=== PATIENT | male | born 1970 | race Caucasian/White ===

== ENCOUNTER 2016-08-18 18:07 | Emergency (ER) | payer MEDICARE, OTHER, MEDICAID ==
[~2016-08-18 18:07] MED LIST: /ATOR40TA; /ATOR40TA OR; /AUGM875TA; /FAMO2TA PO; /INSUREG SC; /LOR25TA PO; /METO25TAB PO; /QUET10TA OR; ABIL10TA OR; ABIL1TAB5 PO; ABIL5TAB OR; ACET500C; ACET65TA; ACET65TA OR; AMLO5TAB OR; ASPI325T; ASPI325T OR; ASPI325T PO; ASPI81CH3 PO; ATARAX OR; ATEN25TA; ATEN25TA OR; ATIV0.5T OR; ATIV1TAB2 OR; ATOR1TAB21 PO; ATOR40TA PO; AUGM875T27 PO; BACT800T5 PO; BENA20TA2 OR; BUPROPION HCL PO; CELE20TA; CELE40TA OR; CIPR25SS OR; CITA20TA2 PO; CITA20TA4 PO; DEPA500T; DEPA500T2 OR; DEPAKOTE ER PO; DEPAKOTE PO; DIOV160T5; DIOV160T5 OR; DIOV320T; DRIS50002 PO; EFFE75CA75 OR; EFFE75CA75 PO; FLON0.05; GLUCAGEN SC; GLUCOSE OR; HIBI4LIQ TOP; HUMA50IN SQ; HUMULIN N SC; HYDR50TA8 OR; INSUH10VL SC; INSULANT; INSULANT SC; INSULIN LANTUS SC; KEFL500C7 PO; LAMI25TA OR; LAMO25TA2 PO; LANTINJ4 SC; LANTUS; LANTUS SC; LANTUS U SC; LEVA750T PO; LIPITOR PO; LOSA25TA8 PO; LOTREL PO; LUNE3TAB48 PO; MICR10CA PO; MILKSUS OR; MUPI2OI EXT; NIACIN OR; NIACPOW39 PO; NIAS10003; NIAS500T2 OR; NOVOINJ3; NOVOINJ3 SC; NOVOLOG SC; NOVOLOG100 MG/ML; NOVOLOG100 MG/ML SC; PANT40TA2 PO; PERC7.5T12 PO; PERCOCET PO; PSEU60TA2 OR; QUET1TAB8 PO; SERO400T OR; SEROQUEL PO; TRAZ100T OR; TRAZ150T OR; TYLE325T5 PO; VITA100072 PO; VITA30004 PO; VITA500047 PO; VITMTA PO; WELL75TA; ZYVO100T PO; [UNRECOGNIZED DRUG - OTHER]; celexa OR; depakote OR
[2016-08-18 19:04] LABS: MEAN CORPUSCULAR HEMOGLOBIN 30.7 pg (27.0-33.0); MEAN CORPUSCULAR HGB CONC 34.3 g/dl (32.0-36.5); MEAN CORPUSCULAR VOLUME 89.6 fl (80.0-96.0); RED CELL DISTRIBUTION WIDTH 13.6 % (11.5-14.5); WHITE BLOOD COUNT 5.6 K/mm3 (4.0-10.0)
[2016-08-18 19:18] LABS: ALBUMIN 3.8 GM/DL (3.2-5.2); ALBUMIN/GLOBULIN RATIO 1.09 (1.00-1.93); ALKALINE PHOSPHATASE 121 U/L (45-117); ALT/SGPT 43 U/L (12-78); ANION GAP 14 MEQ/L (8-16); AST/SGOT 24 U/L (15-37); BILIRUBIN,DIRECT 0.1 MG/DL (0.0-0.2); BILIRUBIN,TOTAL 0.4 MG/DL (0.2-1.0); BLOOD UREA NITROGEN 21 MG/DL (7-18); CALCIUM LEVEL 8.7 MG/DL (8.5-10.1); CARBON DIOXIDE LEVEL 23 MEQ/L (21-32); CHLORIDE LEVEL 101 MEQ/L (98-107); CREATININE FOR GFR 0.84 MG/DL (0.70-1.30); GLOMERULAR FILTRATION RATE > 60.0 (>60); GLUCOSE, FASTING 231 MG/DL (70-105); POTASSIUM SERUM 3.9 MEQ/L (3.5-5.1); SODIUM LEVEL 138 MEQ/L (136-145); TOTAL PROTEIN 7.3 GM/DL (6.4-8.2)
--- NOTE | 2016-08-19 00:09 | EDDOCDS ---
Nurse's Notes [facility] Name: Del Rust Age: 45 yrs Sex: Male : 1970 Arrival Date: 08/18/2016 Time: 18:07 Bed 9 Private MD: Dio Allen Diagnosis: Acute bronchitis;Major depressive disorder, recurrent, mild Presentation: 08/18 18:13 Presenting complaint: Patient states: finished azithromycin yesterday with no relief in jjr symptoms, increased depression over past couple weeks. Mental Health Triage Level: Level 1- Pt displays no suicidal or homicidal ideations and does not appear to be a danger to self or others. Adult Sepsis Screening: The patient does not have new or worsening altered mentation. Patient's respiratory rate is less than 22. Systolic blood pressure is greater than 100. Patient has a qSOFA score of 0- Negative Sepsis Screen. Suicide/Homicide risk assessment- The patient reports that he/she has not been admitted to an inpatient mental health facility in the last 30 days. The patient reports that he/she does not have a recent or current history of substance abuse. The patient reports that he/she has experienced a significant life altering event in the last 30 days. Status: Patient is not a neuropsychology service director or dependent. Transition of care: patient was not received from another setting of care. 18:13 Acuity: EDWARD Level 3 jjr 18:13 Method Of Arrival: Walkin/Carried/Asstd jjr Triage Assessment: 18:15 General: Appears in no apparent distress, Behavior is appropriate for age. Pain: jjr Location: "whole body cramp" and QUIROZ. HIV screening NA for this visit Offered previously. Neurological: No deficits noted. Reports headache. Respiratory: Airway is patent Respiratory effort is even, unlabored, Respiratory pattern is regular. Historical: - Allergies: Benadryl (Upset stomach); Morphine (Upset stomach); - Home Meds: 1. citalopram 40 mg Oral tab 1 tab once daily 2. aripiprazole 10 mg Oral tab 1 tab once daily 3. Lamictal 25 mg Oral TChD 2 tabs daily 4. hydroxyzine HCl 50 mg Oral tab prn 5. Abilify 10 mg Oral tab 1 tab once daily 6. Lunesta 3 mg Oral tab 1 tab once daily 7. atorvastatin 40 mg oral tab 1 tab once daily 8. pantoprazole 40 mg oral TbEC 1 tab once daily 9. aspirin 325 mg Oral TbEC 1 tab once daily 10. Lantus 100 unit/mL Sub-Q crtg 46 unit daily 11. Novolog 100 unit/mL Sub-Q soln sliding scale after meals 12. losartan 25 mg oral tab 1 tab once daily - PMHx: Diabetes - IDDM: controlled; CVA; Myocardial infarction; Hypercholesterolemia; Hypertension; Anxiety; Depression; - PSHx: Gastric Bypass; Appendectomy; retina reattachment (bilaterally); Cataract Surgery- Right; Cataract Surgery- Left; toe amputation; - Social history: Smoking status: Patient uses tobacco products, current every day smoker. No barriers to communication noted, The patient speaks fluent Kiswahili. - Family history: Not pertinent. - : The pt / caregiver states he / she is not on anticoagulants. Home medication list is obtained from the patient. - Exposure Risk Screening:: None identified. Screenin:23 Screening information is obtained from the patient. Fall risk: No risks identified. bcj Assistance ADL's: requires no assistance with activities of daily living. Abuse/DV Screen: The patient / caregiver reports he/she is: not in a situation that causes fear, pain or injury. Nutritional screening: No deficits noted. Advance Directives: Currently, there is no health care proxy. home support is adequate. Assessment: 18:23 General: Appears in no apparent distress, comfortable, Behavior is cooperative. Pain: bcj Denies pain. Derm: Skin is intact, Skin is dry, Skin is pink. 19:40 General: Appears in no apparent distress, comfortable, Behavior is appropriate for age, js15 cooperative. Pain: Denies pain. Neurological: Level of Consciousness is awake, alert, obeys commands, Oriented to person, place, time. Respiratory: Airway is patent Respiratory effort is even, unlabored, Respiratory pattern is regular, symmetrical. Derm: Skin is pink, warm & dry. 20:40 Reassessment: Patient appears in no apparent distress at this time. Pt resting on js15 stretcher, respirations even and unlabored; skin pink, warm, dry. 21:45 Reassessment: Patient appears in no apparent distress at this time. Pt complains of js15 muscle cramps in legs, provider notified and orders given; respirations even and unlabored; skin pink, warm, dry. 23:00 General: Appears in no apparent distress, to be sleeping. Cardiovascular: Rhythm is js15 sinus rhythm. Respiratory: Airway is patent Respiratory effort is even, unlabored, Respiratory pattern is regular, symmetrical. Derm: Skin is pink, warm & dry. 08/19 00:03 Reassessment: Patient appears in no apparent distress at this time. Patient denies pain js15 at this time. Patient states feeling better. Patient states symptoms have improved. Pt resting on stretcher, respirations even and unlabored; skin pink, warm, dry. Social Work Consult: 08/18 19:57 Social Work Note: PSA spoke with pt and his sister at bedside. Pt reports not feeling cs well past 3-4 days, not eating or sleeping. Sister reports he has no one to speak with when he is getting depressed. Pt states he sees Dr. Hoang for the past 2 years and likes her as a doctor. Pt reports he is looking at seeing his sister's counselor, sister states her counselor said it was ok. Pt was very upbeat about talking denies any suicide thoughts or wanting to kill anyone at this time. PSA offered [facility] [employer] systems test engineer and pamphlet to the pt, he and his sister seemed very interested and may call at a later time for a referral to the free care attendantstrategic partnership manager. DC plan is for the pt to go [facility] [place] once the MD finds out what is making him feel sick. No safety concerns noted at this time, sister and pt very thankful with referral options and option of a care attendant. Support extended. Psych: 18:45 Mental Health Triage Level: Level 1- Pt displays no suicidal or homicidal ideations and bcj does not appear to be a danger to self or others. 18:45 Subjective: The patients chief complaint is not sleeping or eating well. 18:45 Objective: Patient is cooperative, Speech is normal. Affect is appropriate. 18:45 Substance abuse: Pt denies Vital Signs: 18:09 BP 162 / 94; Pulse 140; Resp 20; Temp 100.1(O); Pulse Ox 98% on R/A; Weight 80.74 kg elp (R); Height 5 ft. 10 in. (177.80 cm) (R); 18:35 BP 145 / 96; Pulse 133; pjf 20:15 BP 118 / 79 (auto/); js15 20:16 Pulse 106 MON; Pulse Ox 95% ; js15 20:30 BP 119 / 81 (auto/); js15 20:30 Pulse 106 MON; Pulse Ox 95% ; js15 20:45 BP 114 / 71 (auto/); js15 20:45 Pulse 102 MON; Pulse Ox 95% ; js15 21:00 BP 119 / 79 (auto/); js15 21:00 Pulse 94 MON; Pulse Ox 95% ; js15 21:15 BP 120 / 79 (auto/); js15 21:15 Pulse 98 MON; Pulse Ox 95% ; js15 21:30 BP 121 / 65 (auto/); js15 21:30 Pulse 98 MON; Pulse Ox 95% ; js15 21:45 BP 138 / 69 (auto/); js15 21:45 Pulse 98 MON; Pulse Ox 96% ; js15 21:59 Pulse 88 MON; Pulse Ox 96% ; js15 22:00 BP 129 / 68 (auto/); js15 22:15 BP 125 / 73 (auto/); js15 22:15 Pulse 82 MON; Pulse Ox 98% ; js15 22:29 Pulse 80 MON; Pulse Ox 97% ; js15 22:30 Temp 97.0(TE); js15 22:30 BP 121 / 72 (auto/); js15 22:44 Pulse 82 MON; Pulse Ox 96% ; js15 22:45 BP 115 / 69 (auto/); js15 22:59 Pulse 82 MON; Pulse Ox 98% ; js15 23:00 BP 117 / 68 (auto/); js15 23:15 BP 122 / 70 (auto/); js15 23:16 Pulse 84 MON; Pulse Ox 97% ; js15 23:30 BP 117 / 66 (auto/); js15 23:30 Pulse 78 MON; Pulse Ox 97% ; js15 23:44 Pulse 78 MON; Pulse Ox 97% ; js15 23:45 BP 117 / 66 (auto/); js15 23:50 BP 113 / 66 (auto/); js15 23:50 Pulse 76 MON; Resp 18; Temp 98.2(TE); Pulse Ox 97% on R/A; 18:09 Body Mass Index 25.54 (80.74 kg, 177.80 cm) elp Vitals: 18:09 Log In Time: August 18, 2016 at 18:07. RN notified that patient meets Red Flag elp criteria. ED Course: 18:08 Patient visited by Maria Esther Zuñiga PCA. elp 18:08 Dio Allen MD is Private Physician. elp 18:08 Patient moved to Waiting elp 18:[address] [facility] jjr 18:10 Patient visited by Maria Esther Zuñiga PCA. elp 18:15 Triage Initiated jjr 18:23 No apparent distress. Awaiting ED physician evaluation. bcj 18:23 The patient / caregiver is instructed regarding the plan of care and ED course. bcj Accompanied by Family Member, Patient has correct armband on for positive identification. Placed in gown. 18:24 Rowena Koch MD is Attending Physician. fg 18:25 Patient visited by Rowena Koch MD. fg 18:28 Patient visited by Jason Sotomayor RN. bcj 18:36 Door closed. Noise minimized. Visitors limited. Report received from rn - psych. [facility] level #1, no obs. req. \\T\\ this time. Psych Safety Check: Location: Psych Room. Visual Assessment: Cooperative. 18:44 -Influenza A&B Rapid Antigen - Nose Sent. bcj 18:44 Basic Metabolic Profile Sent. bcj 18:44 Complete Blood Count Sent. bcj 18:44 Ethyl Alcohol (ethanol) Sent. bcj 18:44 Liver Profile Sent. bcj 18:45 Labs drawn. (by ED staff). Sent per order to lab. Urine collected. Clean catch bcj specimen. Urine specimen sent to lab. 18:46 Patient visited by Jason Sotomayor RN. bcj 19:07 Senait Soler, ADRIANNA is Primary Nurse. tmm1 19:07 Patient moved to 9 tmm1 19:15 Attending Physician role handed off by Rowena Koch MD mm11 19:15 Claudio Olvera DO is Attending Physician. mm11 19:32 EKG done. (by ED staff). Reviewed by Claudio Olvera DO. kb5 19:33 Patient visited by Rafat Patel PCA. kb5 19:36 [id number] Payment Agreement was scanned into [employer] and attached to record. ks16 19:40 Patient name changed from Del\\S\\\\S\\Schoff\\S\\ to Del\\S\\ \\S\\Schoff. EDMS 20:06 PSA Outpatient Referrals was scanned into Se[employer] and attached to record. ml4 20:12 Patient visited by Claudio Olvera DO. mm11 20:29 Inserted saline lock: 18 gauge in right antecubital area The patient tolerated the js15 procedure well. 20:43 Primary Nurse role handed off by Senait Soler RN chiquita 21:12 Patient visited by Claudio Olvera DO. mm11 22:08 Patient visited by Isabel Arambula RN. js15 23:07 Patient visited by Claudio Olvera DO. mm11 23:15 Dio Allen MD is Referral Physician. mm11 23:15 Referral list, As provided by [facility] is Referral Physician. mm11 23:50 Discontinued IV lock intact, bleeding controlled, pressure dressing applied, No js15 redness/swelling at site. No procedures done that require assistance. Administered Medications: 20:29 Drug: NS 0.9% 1000 ml [sodium chloride 0.9 % intravenous solution] Route: IV; Rate: js15 bolus; Site: right antecubital; 22:27 Follow up: IV Status: Completed infusion; IV Intake: 1000ml js15 21:58 Drug: Diazepam 5 mg [diazepam 5 mg/mL injection syringe (1 mL)] Route: IVP; Site: right js15 antecubital; 23:26 Drug: Diazepam 5 mg [diazepam 5 mg/mL injection syringe (1 mL)] Route: IVP; Site: right kc3 antecubital; Intake: 22:27 IV: 1000.00ml; Total: 1000.00ml. js15 Order Results: Lab Order: Basic Metabolic Profile; SPEC'M 08/18/16 18:38 Test: GLUCOSE, FASTING; Value: 231; Range: 70-105; Abnormal: Above high normal; Units: MG/DL; Status: F Test: BLOOD UREA NITROGEN; Value: 21; Range: 7-18; Abnormal: Above high normal; Units: MG/DL; Status: F Test: CREATININE FOR GFR; Value: 0.84; Range: 0.70-1.30; Units: MG/DL; Status: F Test: GLOMERULAR FILTRATION RATE; Value: > 60.0; Range: >60; Status: F Test: SODIUM LEVEL; Value: 138; Range: 136-145; Units: MEQ/L; Status: F Test: POTASSIUM SERUM; Value: 3.9; Range: 3.5-5.1; Units: MEQ/L; Status: F Test: CHLORIDE LEVEL; Value: 101; Range: 98-107; Units: MEQ/L; Status: F Test: CARBON DIOXIDE LEVEL; Value: 23; Range: 21-32; Units: MEQ/L; Status: F Test: ANION GAP; Value: 14; Range: 8-16; Units: MEQ/L; Status: F Test: CALCIUM LEVEL; Value: 8.7; Range: 8.5-10.1; Units: MG/DL; Status: F Test Note: ; Units are mL/min/1.73 m2 Chronic Kidney Disease Staging per NKF: Stage I & II GFR >=60 Normal to Mildly Decreased Stage III GFR 30-59 Moderately Decreased Stage IV GFR 15-29 Severely Decreased Stage V GFR <15 Very Little GFR Left ESRD GFR <15 on COMMERCIAL FOOD INSTRUCTOR Lab Order: Complete Blood Count; [facility]'M 08/18/16 18:38 Test: WHITE BLOOD COUNT; Value: 5.6; Range: 4.0-10.0; Units: K/mm3; Status: F Test: RED BLOOD COUNT; Value: 5.29; Range: 4.30-6.10; Units: M/mm3; Status: F Test: HEMOGLOBIN; Value: 16.3; Range: 14.0-18.0; Units: g/dl; Status: F Test: HEMATOCRIT; Value: 47.4; Range: 42.0-52.0; Units: %; Status: F Test: MEAN CORPUSCULAR VOLUME; Value: 89.6; Range: 80.0-96.0; Units: fl; Status: F Test: MEAN CORPUSCULAR HEMOGLOBIN; Value: 30.7; Range: 27.0-33.0; Units: pg; Status: F Test: MEAN CORPUSCULAR HGB CONC; Value: 34.3; Range: 32.0-36.5; Units: g/dl; Status: F Test: RED CELL DISTRIBUTION WIDTH; Value: 13.6; Range: 11.5-14.5; Units: %; Status: F Test: PLATELET COUNT, AUTOMATED; Value: 260; Range: 150-450; Units: k/mm3; Status: F Lab Order: Ethyl Alcohol (ethanol); SPEC'M 08/18/16 18:38 Test: ETHYL ALCOHOL (ETHANOL); Value: < 0.003; Range: 0.000-0.010; Units: %; Status: F Lab Order: Liver Profile; SPEC'M 08/18/16 18:38 Test: AST/SGOT; Value: 24; Range: 15-37; Units: U/L; Status: F Test: ALT/SGPT; Value: 43; Range: 12-78; Units: U/L; Status: F Test: ALKALINE PHOSPHATASE; Value: 121; Range: 45-117; Abnormal: Above high normal; Units: U/L; Status: F Test: BILIRUBIN,TOTAL; Value: 0.4; Range: 0.2-1.0; Units: MG/DL; Status: F Test: BILIRUBIN,DIRECT; Value: 0.1; Range: 0.0-0.2; Units: MG/DL; Status: F Test: TOTAL PROTEIN; Value: 7.3; Range: 6.4-8.2; Units: GM/DL; Status: F Test: ALBUMIN; Value: 3.8; Range: 3.2-5.2; Units: GM/DL; Status: F Test: ALBUMIN/GLOBULIN RATIO; Value: 1.09; Range: 1.00-1.93; Status: F Lab Order: -Influenza A&B Rapid Antigen - Nose; SPEC'M 08/18/16 18:38 Test: INFLUENZA A RAPID SCR by ICA; Value: INFLUENZA A RESULTS NEGATIVE; Status: F Test: INFLUENZA A RAPID SCR by ICA; Value: Comments:; Status: F Test: INFLUENZA B RAPID SCR by ICA; Value: INFLUENZA B RESULTS NEGATIVE; Status: F Test Note: ; The Influenza test is a direct rapid immunoassay for the qualitative detection of Influenza viral antigen. Cell culture (Viral Culture) testing should be considered to confirm NEGATIVE results and to assist in detecting other viruses that can provide similar clinical symptoms. Please contact the lab within 24 hours ([phone]) if confirmatory testing is desired. Lab Order: Creatine Phosphokinase; SPEC'M 08/18/16 20:24 Test: CPK CREATINE PHOSPHOKINASE; Value: 59; Range: 39-308; Units: U/L; Status: F Lab Order: Lactic Acid (Clements tube on ice); SPEC'M 08/18/16 20:24 Test: LACTIC ACID LEVEL, LACTATE; Value: 1.1; Range: 0.4-2.0; Units: MMOL/L; Status: F Lab Order: Fingerstick Blood Sugar; SPEC'M 08/18/16 21:56 Test: BEDSIDE GLUCOSE; Value: 115; Range: 70-105; Abnormal: Above high normal; Units: MG/DL; Status: F Test Note: ; RN Notified Doctor Notified Outcome: 23:15 Discharge ordered by Provider. mm11 23:50 Discharge Assessment: Patient awake, alert and oriented x 3. No cognitive and/or js15 functional deficits noted. Patient verbalized understanding of disposition instructions. patient administered narcotics - no. The following High Risk Discharge criteria are identified: None. Discharged to home ambulatory, with sister. Condition: stable Condition: improved. Discharge instructions given to patient, sister Instructed on discharge instructions, follow up and referral plans. hydration Demonstrated understanding of instructions, Pt was receptive of discharge instructions/ teaching. Property sent home with patient. 08/19 00:07 No special radiology studies were completed. js15 00:08 Patient left the ED. js15 Signatures: Dispatcher [employer] EDJason Crandall, RN RN Carlos Evans, PSA PSA cs Parag Harrison, Security Aide [facility] Allegra Levy, PSA PSA ml4 Rafat Patel, ORNAMENTAL BRONZE WORKER ORNAMENTAL BRONZE WORKER kb5 Claudio Olvera, DO DO mm11 Brenda Suarez, RN RN jjr Casandra Burk, ORNAMENTAL BRONZE WORKER ORNAMENTAL BRONZE WORKER chiquita Michelle Robertson, ORNAMENTAL BRONZE WORKER ORNAMENTAL BRONZE WORKER tmm1 Maria Esther Zuñiga, ORNAMENTAL BRONZE WORKER ORNAMENTAL BRONZE WORKER elp Isabel Arambula,RN RN js15 Rowena Koch MD MD fg Crane, Kelsi,RN RN adithya3 Racheal Figueroa, Reg Reg ks16 MTDD
--- NOTE | 2016-08-19 00:10 | EDDOCDS ---
Physician Documentation [facility] Name: Del Rust Age: 45 yrs Sex: Male : 1970 Arrival Date: 08/18/2016 Time: 18:07 Bed 9 Private MD: Dio Allen Disposition: 08/18/16 23:15 Discharged to Home/Self Care. Impression: Acute bronchitis, Major depressive disorder, recurrent, mild. - Condition is Stable. - Discharge Instructions: Acute Bronchitis, Depression, Adult, Viral Infections, Viral Infections, [id number]. - Medication Reconciliation, Local Pharmacy Hours form. - Follow up: Dio Allen MD; When: 4 - 5 days; Reason: Continuance of care. Follow up: Referral list, As provided by PFS; When: Call to arrange an appointment; Reason: To establish care. - Problem is an acute exacerbation. - Symptoms have improved. Historical: - Allergies: Benadryl (Upset stomach); Morphine (Upset stomach); - Home Meds: 1. citalopram 40 mg Oral tab 1 tab once daily 2. aripiprazole 10 mg Oral tab 1 tab once daily 3. Lamictal 25 mg Oral TChD 2 tabs daily 4. hydroxyzine HCl 50 mg Oral tab prn 5. Abilify 10 mg Oral tab 1 tab once daily 6. Lunesta 3 mg Oral tab 1 tab once daily 7. atorvastatin 40 mg oral tab 1 tab once daily 8. pantoprazole 40 mg oral TbEC 1 tab once daily 9. aspirin 325 mg Oral TbEC 1 tab once daily 10. Lantus 100 unit/mL Sub-Q crtg 46 unit daily 11. Novolog 100 unit/mL Sub-Q soln sliding scale after meals 12. losartan 25 mg oral tab 1 tab once daily - PMHx: Diabetes - IDDM: controlled; CVA; Myocardial infarction; Hypercholesterolemia; Hypertension; Anxiety; Depression; - PSHx: Gastric Bypass; Appendectomy; retina reattachment (bilaterally); Cataract Surgery- Right; Cataract Surgery- Left; toe amputation; - Social history: Smoking status: Patient uses tobacco products, current every day smoker. No barriers to communication noted, The patient speaks fluent Greek. - Family history: Not pertinent. - : The pt / caregiver states he / she is not on anticoagulants. Home medication list is obtained from the patient. - Exposure Risk Screening:: None identified. Vital Signs: 08/18 18:09 BP 162 / 94; Pulse 140; Resp 20; Temp 100.1(O); Pulse Ox 98% on R/A; Weight 80.74 kg / elp 178 lbs (R); Height 5 ft. 10 in. (177.80 cm) (R); 18:35 BP 145 / 96; Pulse 133; pjf 20:15 BP 118 / 79 (auto/); js15 20:16 Pulse 106 MON; Pulse Ox 95% ; js15 20:30 BP 119 / 81 (auto/); js15 20:30 Pulse 106 MON; Pulse Ox 95% ; js15 20:45 BP 114 / 71 (auto/); js15 20:45 Pulse 102 MON; Pulse Ox 95% ; js15 21:00 BP 119 / 79 (auto/); js15 21:00 Pulse 94 MON; Pulse Ox 95% ; js15 21:15 BP 120 / 79 (auto/); js15 21:15 Pulse 98 MON; Pulse Ox 95% ; js15 21:30 BP 121 / 65 (auto/); js15 21:30 Pulse 98 MON; Pulse Ox 95% ; js15 21:45 BP 138 / 69 (auto/); js15 21:45 Pulse 98 MON; Pulse Ox 96% ; js15 21:59 Pulse 88 MON; Pulse Ox 96% ; js15 22:00 BP 129 / 68 (auto/); js15 22:15 BP 125 / 73 (auto/); js15 22:15 Pulse 82 MON; Pulse Ox 98% ; js15 22:29 Pulse 80 MON; Pulse Ox 97% ; js15 22:30 Temp 97.0(TE); js15 22:30 BP 121 / 72 (auto/); js15 22:44 Pulse 82 MON; Pulse Ox 96% ; js15 22:45 BP 115 / 69 (auto/); js15 22:59 Pulse 82 MON; Pulse Ox 98% ; js15 23:00 BP 117 / 68 (auto/); js15 23:15 BP 122 / 70 (auto/); js15 23:16 Pulse 84 MON; Pulse Ox 97% ; js15 23:30 BP 117 / 66 (auto/); js15 23:30 Pulse 78 MON; Pulse Ox 97% ; js15 23:44 Pulse 78 MON; Pulse Ox 97% ; js15 23:45 BP 117 / 66 (auto/); js15 23:50 BP 113 / 66 (auto/); js15 23:50 Pulse 76 MON; Resp 18; Temp 98.2(TE); Pulse Ox 97% on R/A; js15 18:09 Body Mass Index 25.54 (80.74 kg, 177.80 cm) elp MDM: 18:16 Consult PFS/PSA/Finance Effectiveness Manager ordered. fg 18:16 Consult PFS/PSA/Finance Effectiveness Manager: Patient's case requires discussion with on-call fg Psychiatrist ordered. 18:16 Basic Metabolic Profile Ordered. EDMS 18:16 Complete Blood Count Ordered. EDMS 18:16 Ethyl Alcohol (ethanol) Ordered. EDMS 18:16 Liver Profile Ordered. EDMS 18:36 Obtain sample by nasal aspiration ordered. fg 18:36 IV Saline Lock ordered. fg 18:36 -Influenza A&B Rapid Antigen - Nose Ordered. EDMS 18:37 Chest, 1 View Ordered. EDMS 19:08 ECG WITH READING ER PHYS+CARDIAG ordered. EDMS 19:33 Basic Metabolic Profile Reviewed. mm11 19:33 Liver Profile Reviewed. mm11 19:33 Complete Blood Count Reviewed. mm11 19:33 Ethyl Alcohol (ethanol) Reviewed. mm11 19:33 -Influenza A&B Rapid Antigen - Nose Reviewed. mm11 19:36 Financial registration complete. ks16 19:36 [facility] Payment Agreement was scanned into [employer] and attached to record. ks16 20:06 PSA Outpatient Referrals was scanned into [employer] and attached to record. ml4 20:12 NS 0.9% 1000 ml IV at bolus once ordered. mm11 20:14 Creatine Phosphokinase Ordered. EDMS 20:14 Lactic Acid (Clements tube on ice) Ordered. EDMS 21:03 Basic Metabolic Profile Reviewed. mm11 21:03 Liver Profile Reviewed. mm11 21:03 Ethyl Alcohol (ethanol) Reviewed. mm11 21:03 Creatine Phosphokinase Reviewed. mm11 21:03 Lactic Acid (Clements tube on ice) Reviewed. mm11 21:50 Diazepam 5 mg IVP once ordered. mm11 22:06 Fingerstick Blood Sugar Ordered. EDMS 22:07 Fingerstick Blood Sugar Reviewed. mm11 23:08 Diazepam 5 mg IVP once ordered. mm11 23:18 Consult PFS/PSA/Finance Effectiveness Manager: Patient's case requires discussion with on-call ml4 Psychiatrist complete. 23:18 Consult PFS/PSA/Finance Effectiveness Manager complete. ml4 Administered Medications: 20:29 Drug: NS 0.9% 1000 ml [sodium chloride 0.9 % intravenous solution] Route: IV; Rate: js15 bolus; Site: right antecubital; 22:27 Follow up: IV Status: Completed infusion; IV Intake: 1000ml js15 21:58 Drug: Diazepam 5 mg [diazepam 5 mg/mL injection syringe (1 mL)] Route: IVP; Site: right js15 antecubital; 23:26 Drug: Diazepam 5 mg [diazepam 5 mg/mL injection syringe (1 mL)] Route: IVP; Site: right kc3 antecubital; Signatures: Dispatcher [employer] EDMS Jason Sotomayor, RN RN bcj Allegra Levy, PSA PSA ml4 Claudio Olvera DO DO mm11 Brenda Suarez RN RN jjIsabel ErnstRN RN js15 Rowena Koch MD MD fg Sorenson, Kimberly, Reg Reg ks16 Daria Mcfarland RN kc3 The chart was reviewed and I authenticate all verbal orders and agree with the evaluation and treatment provided.Corrections: (The following items were deleted from the chart) 18:34 18:16 PSA/PFS to call Nursing Canteen Operator, to enter patient data on [place] Safe Act if fg patient involuntarily admitted or transferred for SI or HI ordered. fg 18:34 18:16 ACETAMINOPHEN LEVEL+LAB ordered. EDMA EDMS 18:34 18:16 DRUG EVAL TOXICOLOGY ED ONLY+LAB ordered. EDMS EDMS 18:35 18:16 Confirm accurate psychiatric medication list and times of last dosage ordered. fg fg 18:35 18:16 Detain Pt Until Medically/PFS Cleared ordered. fg fg 18:36 18:16 SALICYLATE LEVEL+LAB ordered. EDMS EDMS 18:38 18:16 THYROID STIMULATING HORMONE+LAB ordered. EDMS EDMS 21:01 20:56 CREATINE PHOSPHOKINASE ordered. EDMS EDMS Attachments: 19:36 [facility] Payment Agreement ks16 MTDD
--- NOTE | 2016-08-19 12:13 | REP ---
PORTABLE CHEST X-RAY: Single view. HISTORY: Cough. Comparison study February 16, 2014. FINDINGS: No infiltrate is seen. Pleural angles are sharp. Heart size is normal. Pulmonary vasculature is not increased. There is an old healed rib fracture on the left as before. IMPRESSION: No active disease. Signed by Armond Mazariegos MD 08/19/2016 12:18 P
--- NOTE | 2016-08-19 20:50 | ECGEPIP ---
Stationary ECG Study [facility] - ED Test Date: 2016-08-18 Pat Name: GIFTY BOB Department: Room: - Gender: M Investment Analyst: WOJCIECH : 1970 Requested By: TALIA Lees Order Number: [id number] Reading MD: Dorota Gaitan Measurements Intervals Ortley Rate: 118 P: 69 AK: 120 QRS: 41 QRSD: 94 T: 65 QT: 334 QTc: 470 Interpretive Statements SINUS TACHYCARDIA PROBABLE INFERIOR MYOCARDIAL INFARCTION, PROBABLY OLD NSTTW ABNORMALITY INCREASED RATE 05/17/16 Electronically Signed On 08-19-2016 20:50:26 EST by Dorota Gaitan
--- NOTE | 2016-08-21 01:09 | EDDOCDS ---
Physician Documentation [facility] Name: Del Rust Age: 45 yrs Sex: Male : 1970 Arrival Date: 08/18/2016 Time: 18:07 Bed 9 Private MD: Dio Allen Disposition: 08/18/16 23:15 Discharged to Home/Self Care. Impression: Acute bronchitis, Major depressive disorder, recurrent, mild. - Condition is Stable. - Discharge Instructions: Acute Bronchitis, Depression, Adult, Viral Infections, Viral Infections, [id number]. - Medication Reconciliation, Local Pharmacy Hours form. - Follow up: Dio Allen MD; When: 4 - 5 days; Reason: Continuance of care. Follow up: Referral list, As provided by PFS; When: Call to arrange an appointment; Reason: To establish care. - Problem is an acute exacerbation. - Symptoms have improved. Historical: - Allergies: Benadryl (Upset stomach); Morphine (Upset stomach); - Home Meds: 1. citalopram 40 mg Oral tab 1 tab once daily 2. aripiprazole 10 mg Oral tab 1 tab once daily 3. Lamictal 25 mg Oral TChD 2 tabs daily 4. hydroxyzine HCl 50 mg Oral tab prn 5. Abilify 10 mg Oral tab 1 tab once daily 6. Lunesta 3 mg Oral tab 1 tab once daily 7. atorvastatin 40 mg oral tab 1 tab once daily 8. pantoprazole 40 mg oral TbEC 1 tab once daily 9. aspirin 325 mg Oral TbEC 1 tab once daily 10. Lantus 100 unit/mL Sub-Q crtg 46 unit daily 11. Novolog 100 unit/mL Sub-Q soln sliding scale after meals 12. losartan 25 mg oral tab 1 tab once daily - PMHx: Diabetes - IDDM: controlled; CVA; Myocardial infarction; Hypercholesterolemia; Hypertension; Anxiety; Depression; - PSHx: Gastric Bypass; Appendectomy; retina reattachment (bilaterally); Cataract Surgery- Right; Cataract Surgery- Left; toe amputation; - Social history: Smoking status: Patient uses tobacco products, current every day smoker. No barriers to communication noted, The patient speaks fluent Khmer. - Family history: Not pertinent. - : The pt / caregiver states he / she is not on anticoagulants. Home medication list is obtained from the patient. - Exposure Risk Screening:: None identified. Vital Signs: 08/18 18:09 BP 162 / 94; Pulse 140; Resp 20; Temp 100.1(O); Pulse Ox 98% on R/A; Weight 80.74 kg / elp 178 lbs (R); Height 5 ft. 10 in. (177.80 cm) (R); 18:35 BP 145 / 96; Pulse 133; pjf 20:15 BP 118 / 79 (auto/); js15 20:16 Pulse 106 MON; Pulse Ox 95% ; js15 20:30 BP 119 / 81 (auto/); js15 20:30 Pulse 106 MON; Pulse Ox 95% ; js15 20:45 BP 114 / 71 (auto/); js15 20:45 Pulse 102 MON; Pulse Ox 95% ; js15 21:00 BP 119 / 79 (auto/); js15 21:00 Pulse 94 MON; Pulse Ox 95% ; js15 21:15 BP 120 / 79 (auto/); js15 21:15 Pulse 98 MON; Pulse Ox 95% ; js15 21:30 BP 121 / 65 (auto/); js15 21:30 Pulse 98 MON; Pulse Ox 95% ; js15 21:45 BP 138 / 69 (auto/); js15 21:45 Pulse 98 MON; Pulse Ox 96% ; js15 21:59 Pulse 88 MON; Pulse Ox 96% ; js15 22:00 BP 129 / 68 (auto/); js15 22:15 BP 125 / 73 (auto/); js15 22:15 Pulse 82 MON; Pulse Ox 98% ; js15 22:29 Pulse 80 MON; Pulse Ox 97% ; js15 22:30 Temp 97.0(TE); js15 22:30 BP 121 / 72 (auto/); js15 22:44 Pulse 82 MON; Pulse Ox 96% ; js15 22:45 BP 115 / 69 (auto/); js15 22:59 Pulse 82 MON; Pulse Ox 98% ; js15 23:00 BP 117 / 68 (auto/); js15 23:15 BP 122 / 70 (auto/); js15 23:16 Pulse 84 MON; Pulse Ox 97% ; js15 23:30 BP 117 / 66 (auto/); js15 23:30 Pulse 78 MON; Pulse Ox 97% ; js15 23:44 Pulse 78 MON; Pulse Ox 97% ; js15 23:45 BP 117 / 66 (auto/); js15 23:50 BP 113 / 66 (auto/); js15 23:50 Pulse 76 MON; Resp 18; Temp 98.2(TE); Pulse Ox 97% on R/A; js15 18:09 Body Mass Index 25.54 (80.74 kg, 177.80 cm) elp MDM: 18:16 Consult PFS/PSA/Core Layer Machine Operator ordered. fg 18:16 Consult PFS/PSA/Core Layer Machine Operator: Patient's case requires discussion with on-call fg Psychiatrist ordered. 18:16 Basic Metabolic Profile Ordered. EDMS 18:16 Complete Blood Count Ordered. EDMS 18:16 Ethyl Alcohol (ethanol) Ordered. EDMS 18:16 Liver Profile Ordered. EDMS 18:36 Obtain sample by nasal aspiration ordered. fg 18:36 IV Saline Lock ordered. fg 18:36 -Influenza A&B Rapid Antigen - Nose Ordered. EDMS 18:37 Chest, 1 View Ordered. EDMS 19:08 ECG WITH READING ER PHYS+CARDIAG ordered. EDMS 19:33 Basic Metabolic Profile Reviewed. mm11 19:33 Liver Profile Reviewed. mm11 19:33 Complete Blood Count Reviewed. mm11 19:33 Ethyl Alcohol (ethanol) Reviewed. mm11 19:33 -Influenza A&B Rapid Antigen - Nose Reviewed. mm11 19:36 Financial registration complete. ks16 19:36 [facility] Payment Agreement was scanned into [employer] and attached to record. ks16 20:06 PSA Outpatient Referrals was scanned into [employer] and attached to record. ml4 20:12 NS 0.9% 1000 ml IV at bolus once ordered. mm11 20:14 Creatine Phosphokinase Ordered. EDMS 20:14 Lactic Acid (Clements tube on ice) Ordered. EDMS 21:03 Basic Metabolic Profile Reviewed. mm11 21:03 Liver Profile Reviewed. mm11 21:03 Ethyl Alcohol (ethanol) Reviewed. mm11 21:03 Creatine Phosphokinase Reviewed. mm11 21:03 Lactic Acid (Clements tube on ice) Reviewed. mm11 21:50 Diazepam 5 mg IVP once ordered. mm11 22:06 Fingerstick Blood Sugar Ordered. EDMS 22:07 Fingerstick Blood Sugar Reviewed. mm11 23:08 Diazepam 5 mg IVP once ordered. mm11 23:18 Consult PFS/PSA/Core Layer Machine Operator: Patient's case requires discussion with on-call 4 Psychiatrist complete. 23:18 Consult PFS/PSA/Core Layer Machine Operator complete. ml4 08/19 12:20 T-Sheet-- Draft Copy was scanned into [employer] and attached to record. gb 12:20 ECG/EKG was scanned into [employer] and attached to record. gb Administered Medications: 08/18 20:29 Drug: NS 0.9% 1000 ml [sodium chloride 0.9 % intravenous solution] Route: IV; Rate: js15 bolus; Site: right antecubital; 22:27 Follow up: IV Status: Completed infusion; IV Intake: 1000ml js15 21:58 Drug: Diazepam 5 mg [diazepam 5 mg/mL injection syringe (1 mL)] Route: IVP; Site: right js15 antecubital; 23:26 Drug: Diazepam 5 mg [diazepam 5 mg/mL injection syringe (1 mL)] Route: IVP; Site: right kc3 antecubital; Signatures: Dispatcher [facility] EDMS Jason Sotomayor, RN RN Waleska Thrasher, Reg Reg gb Allegra Levy, PSA PSA ml4 Claudio Olvera, DO mm11 Brenda Suarez, RN RN cristianojIsabel Ernst,RN RN js15 Rowena Koch MD MD fg Sorenson, Kimberly, Reg Reg ks16 Daria Mcfarland RN kc3 The chart was reviewed and I authenticate all verbal orders and agree with the evaluation and treatment provided.Corrections: (The following items were deleted from the chart) 18:34 18:16 PSA/PFS to call Nursing Supreme [address] Justice, to enter patient data on [place] Safe [place] if fg patient involuntarily admitted or transferred for SI or HI ordered. fg 18:34 18:16 ACETAMINOPHEN LEVEL+LAB ordered. EDMS EDMS 18:34 18:16 DRUG EVAL TOXICOLOGY ED ONLY+LAB ordered. EDMS EDMS 18:35 18:16 Confirm accurate psychiatric medication list and times of last dosage ordered. fg fg 18:35 18:16 Detain Pt Until Medically/PFS Cleared ordered. fg fg 18:36 18:16 SALICYLATE LEVEL+LAB ordered. EDMS EDMS 18:38 18:16 THYROID STIMULATING HORMONE+LAB ordered. EDMS EDMS 21:01 20:56 CREATINE PHOSPHOKINASE ordered. EDMS EDMS Attachments: 19:36 [facility] Payment Agreement [email or web address] 08/19 12:20 T-Sheet-- Draft Copy gb 12:20 ECG/EKG gb Chart Complete MTDD
--- NOTE | 2016-08-21 01:09 | EDDOCDS ---
Nurse's Notes [facility] Name: Del Bob Age: 45 yrs Sex: Male : 1970 Arrival Date: 08/18/2016 Time: 18:07 Bed 9 Private MD: Dio Allen Diagnosis: Acute bronchitis;Major depressive disorder, recurrent, mild Presentation: 08/18 18:13 Presenting complaint: Patient states: finished azithromycin yesterday with no relief in jjr symptoms, increased depression over past couple weeks. Mental Health Triage Level: Level 1- Pt displays no suicidal or homicidal ideations and does not appear to be a danger to self or others. Adult Sepsis Screening: The patient does not have new or worsening altered mentation. Patient's respiratory rate is less than 22. Systolic blood pressure is greater than 100. Patient has a qSOFA score of 0- Negative Sepsis Screen. Suicide/Homicide risk assessment- The patient reports that he/she has not been admitted to an inpatient mental health facility in the last 30 days. The patient reports that he/she does not have a recent or current history of substance abuse. The patient reports that he/she has experienced a significant life altering event in the last 30 days. Status: Patient is not a nutrition services assistant or dependent. Transition of care: patient was not received from another setting of care. 18:13 Acuity: EDWARD Level 3 jjr 18:13 Method Of Arrival: Walkin/Carried/Asstd jjr Triage Assessment: 18:15 General: Appears in no apparent distress, Behavior is appropriate for age. Pain: jjr Location: "whole body cramp" and QUIROZ. HIV screening NA for this visit Offered previously. Neurological: No deficits noted. Reports headache. Respiratory: Airway is patent Respiratory effort is even, unlabored, Respiratory pattern is regular. Historical: - Allergies: Benadryl (Upset stomach); Morphine (Upset stomach); - Home Meds: 1. citalopram 40 mg Oral tab 1 tab once daily 2. aripiprazole 10 mg Oral tab 1 tab once daily 3. Lamictal 25 mg Oral TChD 2 tabs daily 4. hydroxyzine HCl 50 mg Oral tab prn 5. Abilify 10 mg Oral tab 1 tab once daily 6. Lunesta 3 mg Oral tab 1 tab once daily 7. atorvastatin 40 mg oral tab 1 tab once daily 8. pantoprazole 40 mg oral TbEC 1 tab once daily 9. aspirin 325 mg Oral TbEC 1 tab once daily 10. Lantus 100 unit/mL Sub-Q crtg 46 unit daily 11. Novolog 100 unit/mL Sub-Q soln sliding scale after meals 12. losartan 25 mg oral tab 1 tab once daily - PMHx: Diabetes - IDDM: controlled; CVA; Myocardial infarction; Hypercholesterolemia; Hypertension; Anxiety; Depression; - PSHx: Gastric Bypass; Appendectomy; retina reattachment (bilaterally); Cataract Surgery- Right; Cataract Surgery- Left; toe amputation; - Social history: Smoking status: Patient uses tobacco products, current every day smoker. No barriers to communication noted, The patient speaks fluent Kinyarwanda. - Family history: Not pertinent. - : The pt / caregiver states he / she is not on anticoagulants. Home medication list is obtained from the patient. - Exposure Risk Screening:: None identified. Screenin:23 Screening information is obtained from the patient. Fall risk: No risks identified. bcj Assistance ADL's: requires no assistance with activities of daily living. Abuse/DV Screen: The patient / caregiver reports he/she is: not in a situation that causes fear, pain or injury. Nutritional screening: No deficits noted. Advance Directives: Currently, there is no health care proxy. home support is adequate. Assessment: 18:23 General: Appears in no apparent distress, comfortable, Behavior is cooperative. Pain: bcj Denies pain. Derm: Skin is intact, Skin is dry, Skin is pink. 19:40 General: Appears in no apparent distress, comfortable, Behavior is appropriate for age, js15 cooperative. Pain: Denies pain. Neurological: Level of Consciousness is awake, alert, obeys commands, Oriented to person, place, time. Respiratory: Airway is patent Respiratory effort is even, unlabored, Respiratory pattern is regular, symmetrical. Derm: Skin is pink, warm & dry. 20:40 Reassessment: Patient appears in no apparent distress at this time. Pt resting on js15 stretcher, respirations even and unlabored; skin pink, warm, dry. 21:45 Reassessment: Patient appears in no apparent distress at this time. Pt complains of js15 muscle cramps in legs, provider notified and orders given; respirations even and unlabored; skin pink, warm, dry. 23:00 General: Appears in no apparent distress, to be sleeping. Cardiovascular: Rhythm is js15 sinus rhythm. Respiratory: Airway is patent Respiratory effort is even, unlabored, Respiratory pattern is regular, symmetrical. Derm: Skin is pink, warm & dry. 08/19 00:03 Reassessment: Patient appears in no apparent distress at this time. Patient denies pain js15 at this time. Patient states feeling better. Patient states symptoms have improved. Pt resting on stretcher, respirations even and unlabored; skin pink, warm, dry. Social Work Consult: 08/18 19:57 Social Work Note: PSA spoke with pt and his sister at bedside. Pt reports not feeling cs well past 3-4 days, not eating or sleeping. Sister reports he has no one to speak with when he is getting depressed. Pt states he sees Dr. Hoang for the past 2 years and likes her as a doctor. Pt reports he is looking at seeing his sister's counselor, sister states her counselor said it was ok. Pt was very upbeat about talking denies any suicide thoughts or wanting to kill anyone at this time. PSA offered [facility] Women'[facility] Nurse Practitionercomputer systems auditor and pamphlet to the pt, he and his sister seemed very interested and may call at a later time for a referral to the free skin care technicianclinical nurse manager. DC plan is [facility] once the MD finds out what is making him feel sick. No safety concerns noted at this time, sister and pt very thankful with referral options and option of a skin care technician. Support extended. Psych: 18:45 Mental Health Triage Level: Level 1- Pt displays no suicidal or homicidal ideations and bcj does not appear to be a danger to self or others. 18:45 Subjective: The patients chief complaint is not sleeping or eating well. 18:45 Objective: Patient is cooperative, Speech is normal. Affect is appropriate. 18:45 Substance abuse: Pt denies Vital Signs: 18:09 BP 162 / 94; Pulse 140; Resp 20; Temp 100.1(O); Pulse Ox 98% on R/A; Weight 80.74 kg elp (R); Height 5 ft. 10 in. (177.80 cm) (R); 18:35 BP 145 / 96; Pulse 133; pjf 20:15 BP 118 / 79 (auto/); js15 20:16 Pulse 106 MON; Pulse Ox 95% ; js15 20:30 BP 119 / 81 (auto/); js15 20:30 Pulse 106 MON; Pulse Ox 95% ; js15 20:45 BP 114 / 71 (auto/); js15 20:45 Pulse 102 MON; Pulse Ox 95% ; js15 21:00 BP 119 / 79 (auto/); js15 21:00 Pulse 94 MON; Pulse Ox 95% ; js15 21:15 BP 120 / 79 (auto/); js15 21:15 Pulse 98 MON; Pulse Ox 95% ; js15 21:30 BP 121 / 65 (auto/); js15 21:30 Pulse 98 MON; Pulse Ox 95% ; js15 21:45 BP 138 / 69 (auto/); js15 21:45 Pulse 98 MON; Pulse Ox 96% ; js15 21:59 Pulse 88 MON; Pulse Ox 96% ; js15 22:00 BP 129 / 68 (auto/); js15 22:15 BP 125 / 73 (auto/); js15 22:15 Pulse 82 MON; Pulse Ox 98% ; js15 22:29 Pulse 80 MON; Pulse Ox 97% ; js15 22:30 Temp 97.0(TE); js15 22:30 BP 121 / 72 (auto/); js15 22:44 Pulse 82 MON; Pulse Ox 96% ; js15 22:45 BP 115 / 69 (auto/); js15 22:59 Pulse 82 MON; Pulse Ox 98% ; js15 23:00 BP 117 / 68 (auto/); js15 23:15 BP 122 / 70 (auto/); js15 23:16 Pulse 84 MON; Pulse Ox 97% ; js15 23:30 BP 117 / 66 (auto/); js15 23:30 Pulse 78 MON; Pulse Ox 97% ; js15 23:44 Pulse 78 MON; Pulse Ox 97% ; js15 23:45 BP 117 / 66 (auto/); js15 23:50 BP 113 / 66 (auto/); js15 23:50 Pulse 76 MON; Resp 18; Temp 98.2(TE); Pulse Ox 97% on R/A; 18:09 Body Mass Index 25.54 (80.74 kg, 177.80 cm) elp Vitals: 18:09 Log In Time: August 18, 2016 at 18:07. RN notified that patient meets Red Flag elp criteria. ED Course: 18:08 Patient visited by Maria Esther Zuñiga PCA. elp 18:08 Dio Allen MD is Private Physician. elp 18:08 Patient moved to Waiting elp 18:09 Patient moved to [facility] jjr 18:10 Patient visited by Maria Esther Zuñiga PCA. elp 18:15 Triage Initiated jjr 18:23 No apparent distress. Awaiting ED physician evaluation. bcj 18:23 The patient / caregiver is instructed regarding the plan of care and ED course. bcj Accompanied by Family Member, Patient has correct armband on for positive identification. Placed in gown. 18:24 Rowena Koch MD is Attending Physician. fg 18:25 Patient visited by Rowena Koch MD. fg 18:28 Patient visited by Jason Sotomayor RN. bcj 18:36 Door closed. Noise minimized. Visitors limited. Report received from rn - psych. [facility] level #1, no obs. req. \\T\\ this time. Psych Safety Check: Location: Psych Room. Visual Assessment: Cooperative. 18:44 -Influenza A&B Rapid Antigen - Nose Sent. bcj 18:44 Basic Metabolic Profile Sent. bcj 18:44 Complete Blood Count Sent. bcj 18:44 Ethyl Alcohol (ethanol) Sent. bcj 18:44 Liver Profile Sent. bcj 18:45 Labs drawn. (by ED staff). Sent per order to lab. Urine collected. Clean catch bcj specimen. Urine specimen sent to lab. 18:46 Patient visited by Jason Sotomayor RN. bcj 19:07 Senait Soler, ADRIANNA is Primary Nurse. tmm1 19:07 Patient moved to 9 tmm1 19:15 Attending Physician role handed off by Rowena Koch MD mm11 19:15 Claudio Olvera DO is Attending Physician. mm11 19:32 EKG done. (by ED staff). Reviewed by Claudio Olvera DO. kb5 19:33 Patient visited by Rafat Patel PCA. kb5 19:36 [facility] Payment Agreement was scanned into Splice Machine and attached to record. ks16 19:40 Patient name changed from Del\\S\\\\S\\Schoff\\S\\ to Del\\S\\ \\S\\Schoff. EDMS 20:06 PSA Outpatient Referrals was scanned into Splice Machine and attached to record. ml4 20:12 Patient visited by Claudio Olvera DO. mm11 20:29 Inserted saline lock: 18 gauge in right antecubital area The patient tolerated the js15 procedure well. 20:43 Primary Nurse role handed off by Senait Soler RN chiquita 21:12 Patient visited by Claudio Olvera DO. mm11 22:08 Patient visited by Isabel Arambula RN. js15 23:07 Patient visited by Claudio Olvera DO. mm11 23:15 Dio Allen MD is Referral Physician. mm11 23:15 Referral list, As provided by [facility] is Referral Physician. mm11 23:50 Discontinued IV lock intact, bleeding controlled, pressure dressing applied, No js15 redness/swelling at site. No procedures done that require assistance. 08/19 12:20 T-Sheet-- Draft Copy was scanned into Splice Machine and attached to record. gb 12:20 ECG/EKG was scanned into Splice Machine and attached to record. gb 12:27 Chest, 1 View Returned. EDMS 21:37 EKG-ADULT Returned. EDMS Administered Medications: 08/18 20:29 Drug: NS 0.9% 1000 ml [sodium chloride 0.9 % intravenous solution] Route: IV; Rate: js15 bolus; Site: right antecubital; 22:27 Follow up: IV Status: Completed infusion; IV Intake: 1000ml js15 21:58 Drug: Diazepam 5 mg [diazepam 5 mg/mL injection syringe (1 mL)] Route: IVP; Site: right js15 antecubital; 23:26 Drug: Diazepam 5 mg [diazepam 5 mg/mL injection syringe (1 mL)] Route: IVP; Site: right kc3 antecubital; Intake: 22:27 IV: 1000.00ml; Total: 1000.00ml. js15 Order Results: Lab Order: Basic Metabolic Profile; SPEC'M 08/18/16 18:38 Test: GLUCOSE, FASTING; Value: 231; Range: 70-105; Abnormal: Above high normal; Units: MG/DL; Status: F Test: BLOOD UREA NITROGEN; Value: 21; Range: 7-18; Abnormal: Above high normal; Units: MG/DL; Status: F Test: CREATININE FOR GFR; Value: 0.84; Range: 0.70-1.30; Units: MG/DL; Status: F Test: GLOMERULAR FILTRATION RATE; Value: > 60.0; Range: >60; Status: F Test: SODIUM LEVEL; Value: 138; Range: 136-145; Units: MEQ/L; Status: F Test: POTASSIUM SERUM; Value: 3.9; Range: 3.5-5.1; Units: MEQ/L; Status: F Test: CHLORIDE LEVEL; Value: 101; Range: 98-107; Units: MEQ/L; Status: F Test: CARBON DIOXIDE LEVEL; Value: 23; Range: 21-32; Units: MEQ/L; Status: F Test: ANION GAP; Value: 14; Range: 8-16; Units: MEQ/L; Status: F Test: CALCIUM LEVEL; Value: 8.7; Range: 8.5-10.1; Units: MG/DL; Status: F Test Note: ; Units are mL/min/1.73 m2 Chronic Kidney Disease Staging per NKF: Stage I & II GFR >=60 Normal to Mildly Decreased Stage III GFR 30-59 Moderately Decreased Stage IV GFR 15-29 Severely Decreased Stage V GFR <15 Very Little GFR Left ESRD GFR <15 on OUTREACH WORKER Lab Order: Complete Blood Count; SPEC'M 08/18/16 18:38 Test: WHITE BLOOD COUNT; Value: 5.6; Range: 4.0-10.0; Units: K/mm3; Status: F Test: RED BLOOD COUNT; Value: 5.29; Range: 4.30-6.10; Units: M/mm3; Status: F Test: HEMOGLOBIN; Value: 16.3; Range: 14.0-18.0; Units: g/dl; Status: F Test: HEMATOCRIT; Value: 47.4; Range: 42.0-52.0; Units: %; Status: F Test: MEAN CORPUSCULAR VOLUME; Value: 89.6; Range: 80.0-96.0; Units: fl; Status: F Test: MEAN CORPUSCULAR HEMOGLOBIN; Value: 30.7; Range: 27.0-33.0; Units: pg; Status: F Test: MEAN CORPUSCULAR HGB CONC; Value: 34.3; Range: 32.0-36.5; Units: g/dl; Status: F Test: RED CELL DISTRIBUTION WIDTH; Value: 13.6; Range: 11.5-14.5; Units: %; Status: F Test: PLATELET COUNT, AUTOMATED; Value: 260; Range: 150-450; Units: k/mm3; Status: F Lab Order: Ethyl Alcohol (ethanol); SPEC'M 08/18/16 18:38 Test: ETHYL ALCOHOL (ETHANOL); Value: < 0.003; Range: 0.000-0.010; Units: %; Status: F Lab Order: Liver Profile; SPEC'M 08/18/16 18:38 Test: AST/SGOT; Value: 24; Range: 15-37; Units: U/L; Status: F Test: ALT/SGPT; Value: 43; Range: 12-78; Units: U/L; Status: F Test: ALKALINE PHOSPHATASE; Value: 121; Range: 45-117; Abnormal: Above high normal; Units: U/L; Status: F Test: BILIRUBIN,TOTAL; Value: 0.4; Range: 0.2-1.0; Units: MG/DL; Status: F Test: BILIRUBIN,DIRECT; Value: 0.1; Range: 0.0-0.2; Units: MG/DL; Status: F Test: TOTAL PROTEIN; Value: 7.3; Range: 6.4-8.2; Units: GM/DL; Status: F Test: ALBUMIN; Value: 3.8; Range: 3.2-5.2; Units: GM/DL; Status: F Test: ALBUMIN/GLOBULIN RATIO; Value: 1.09; Range: 1.00-1.93; Status: F Lab Order: -Influenza A&B Rapid Antigen - Nose; SPEC'M 08/18/16 18:38 Test: INFLUENZA A RAPID SCR by ICA; Value: INFLUENZA A RESULTS NEGATIVE; Status: F Test: INFLUENZA A RAPID SCR by ICA; Value: Comments:; Status: F Test: INFLUENZA B RAPID SCR by ICA; Value: INFLUENZA B RESULTS NEGATIVE; Status: F Test Note: ; The Influenza test is a direct rapid immunoassay for the qualitative detection of Influenza viral antigen. Cell culture (Viral Culture) testing should be considered to confirm NEGATIVE results and to assist in detecting other viruses that can provide similar clinical symptoms. Please contact the lab within 24 hours ([phone]) if confirmatory testing is desired. Lab Order: Creatine Phosphokinase; SPEC'M 08/18/16 20:24 Test: CPK CREATINE PHOSPHOKINASE; Value: 59; Range: 39-308; Units: U/L; Status: F Lab Order: Lactic Acid (Clements tube on ice); SPEC'M 08/18/16 20:24 Test: LACTIC ACID LEVEL, LACTATE; Value: 1.1; Range: 0.4-2.0; Units: MMOL/L; Status: F Lab Order: Fingerstick Blood Sugar; SPEC'M 08/18/16 21:56 Test: BEDSIDE GLUCOSE; Value: 115; Range: 70-105; Abnormal: Above high normal; Units: MG/DL; Status: F Test Note: ; RN Notified Doctor Notified Radiology Order: Chest, 1 View Test: Chest, 1 View REASON FOR EXAMINATION: Cough; PORTABLE CHEST X-RAY: Single view.; ; HISTORY: Cough.; ; Comparison study February 16, 2014.; ; FINDINGS: No infiltrate is seen. Pleural angles are sharp. Heart size is; normal. Pulmonary vasculature is not increased. There is an old healed rib; fracture on the left as before.; ; IMPRESSION: No active disease.; ; ; Signed by; Armond Mazariegos MD 08/19/2016 12:18 P; Radiology Order: EKG-ADULT Test: EKG-ADULT REASON FOR EXAMINATION: Cough; Stationary ECG Study; [facility] - ED; ; Test Date: 2016-08-18; Pat Name: DEL BOB Department:; Room: -; Gender: M Hop Weigher: WOJCIECH; : 1970 Requested By: ROWENA Lees; Order Number: [id number] Reading MD: Dorota Gaitan; Measurements; Intervals [place]; Rate: 118 P: 69; OH: 120 QRS: 41; QRSD: 94 T: 65; QT: 334; QTc: 470; Interpretive Statements; SINUS TACHYCARDIA; PROBABLE INFERIOR MYOCARDIAL INFARCTION, PROBABLY OLD; NSTTW ABNORMALITY; INCREASED RATE 05/17/16; Electronically Signed On 08-19-2016 20:50:26 EST by Dorota Gaitan; Outcome: 23:15 Discharge ordered by Provider. mm11 23:50 Discharge Assessment: Patient awake, alert and oriented x 3. No cognitive and/or js15 functional deficits noted. Patient verbalized understanding of disposition instructions. patient administered narcotics - no. The following High Risk Discharge criteria are identified: None. Discharged to home ambulatory, with sister. Condition: stable Condition: improved. Discharge instructions given to patient, sister Instructed on discharge instructions, follow up and referral plans. hydration Demonstrated understanding of instructions, Pt was receptive of discharge instructions/ teaching. Property sent home with patient. 08/19 00:07 No special radiology studies were completed. js15 00:08 Patient left the ED. js15 Signatures: Dispatcher [employer] EDMS Jason Sotomayor, RN RN Carlos Evans, PSA PSA cs Waleska Kruger, Reg Reg gb Ramseyvivi, Parag, Security Aide Securf Allegra Levy, PSA PSA ml4 Rafat Patel, RECEPTIONIST RECEPTIONIST kb5 Claudio Olvera, DO DO mm11 Brenda Suarez, RN RN jjr Casandra Burk, RECEPTIONIST RECEPTIONIST chiquita Michelle Robertson, RECEPTIONIST RECEPTIONIST tmm1 Maria Esther Zuñiga, RECEPTIONIST RECEPTIONIST elp Isabel Arambula,RN RN js15 Rowena Koch MD MD fg Crane, Kelsi,RN RN kc3 Racheal Figueroa, Reg Reg ks16 Chart Complete MTDD
--- NOTE | 2016-08-21 01:09 | EDDOCDS ---
Physician Documentation [facility] Name: Del Rust Age: 45 yrs Sex: Male : 1970 Arrival Date: 08/18/2016 Time: 18:07 Bed 9 Private MD: Dio Allen Disposition: 08/18/16 23:15 Discharged to Home/Self Care. Impression: Acute bronchitis, Major depressive disorder, recurrent, mild. - Condition is Stable. - Discharge Instructions: Acute Bronchitis, Depression, Adult, Viral Infections, Viral Infections, Avcg-Zn-Ngkg. - Medication Reconciliation, Local Pharmacy Hours form. - Follow up: Dio Allen MD; When: 4 - 5 days; Reason: Continuance of care. Follow up: Referral list, As provided by PFS; When: Call to arrange an appointment; Reason: To establish care. - Problem is an acute exacerbation. - Symptoms have improved. Historical: - Allergies: Benadryl (Upset stomach); Morphine (Upset stomach); - Home Meds: 1. citalopram 40 mg Oral tab 1 tab once daily 2. aripiprazole 10 mg Oral tab 1 tab once daily 3. Lamictal 25 mg Oral TChD 2 tabs daily 4. hydroxyzine HCl 50 mg Oral tab prn 5. Abilify 10 mg Oral tab 1 tab once daily 6. Lunesta 3 mg Oral tab 1 tab once daily 7. atorvastatin 40 mg oral tab 1 tab once daily 8. pantoprazole 40 mg oral TbEC 1 tab once daily 9. aspirin 325 mg Oral TbEC 1 tab once daily 10. Lantus 100 unit/mL Sub-Q crtg 46 unit daily 11. Novolog 100 unit/mL Sub-Q soln sliding scale after meals 12. losartan 25 mg oral tab 1 tab once daily - PMHx: Diabetes - IDDM: controlled; CVA; Myocardial infarction; Hypercholesterolemia; Hypertension; Anxiety; Depression; - PSHx: Gastric Bypass; Appendectomy; retina reattachment (bilaterally); Cataract Surgery- Right; Cataract Surgery- Left; toe amputation; - Social history: Smoking status: Patient uses tobacco products, current every day smoker. No barriers to communication noted, The patient speaks fluent Polish. - Family history: Not pertinent. - : The pt / caregiver states he / she is not on anticoagulants. Home medication list is obtained from the patient. - Exposure Risk Screening:: None identified. Vital Signs: 08/18 18:09 BP 162 / 94; Pulse 140; Resp 20; Temp 100.1(O); Pulse Ox 98% on R/A; Weight 80.74 kg / elp 178 lbs (R); Height 5 ft. 10 in. (177.80 cm) (R); 18:35 BP 145 / 96; Pulse 133; pjf 20:15 BP 118 / 79 (auto/); js15 20:16 Pulse 106 MON; Pulse Ox 95% ; js15 20:30 BP 119 / 81 (auto/); js15 20:30 Pulse 106 MON; Pulse Ox 95% ; js15 20:45 BP 114 / 71 (auto/); js15 20:45 Pulse 102 MON; Pulse Ox 95% ; js15 21:00 BP 119 / 79 (auto/); js15 21:00 Pulse 94 MON; Pulse Ox 95% ; js15 21:15 BP 120 / 79 (auto/); js15 21:15 Pulse 98 MON; Pulse Ox 95% ; js15 21:30 BP 121 / 65 (auto/); js15 21:30 Pulse 98 MON; Pulse Ox 95% ; js15 21:45 BP 138 / 69 (auto/); js15 21:45 Pulse 98 MON; Pulse Ox 96% ; js15 21:59 Pulse 88 MON; Pulse Ox 96% ; js15 22:00 BP 129 / 68 (auto/); js15 22:15 BP 125 / 73 (auto/); js15 22:15 Pulse 82 MON; Pulse Ox 98% ; js15 22:29 Pulse 80 MON; Pulse Ox 97% ; js15 22:30 Temp 97.0(TE); js15 22:30 BP 121 / 72 (auto/); js15 22:44 Pulse 82 MON; Pulse Ox 96% ; js15 22:45 BP 115 / 69 (auto/); js15 22:59 Pulse 82 MON; Pulse Ox 98% ; js15 23:00 BP 117 / 68 (auto/); js15 23:15 BP 122 / 70 (auto/); js15 23:16 Pulse 84 MON; Pulse Ox 97% ; js15 23:30 BP 117 / 66 (auto/); js15 23:30 Pulse 78 MON; Pulse Ox 97% ; js15 23:44 Pulse 78 MON; Pulse Ox 97% ; js15 23:45 BP 117 / 66 (auto/); js15 23:50 BP 113 / 66 (auto/); js15 23:50 Pulse 76 MON; Resp 18; Temp 98.2(TE); Pulse Ox 97% on R/A; js15 18:09 Body Mass Index 25.54 (80.74 kg, 177.80 cm) elp MDM: 18:16 Consult PFS/PSA/Shooter'S Helper ordered. fg 18:16 Consult PFS/PSA/Shooter'S Helper: Patient's case requires discussion with on-call fg Psychiatrist ordered. 18:16 Basic Metabolic Profile Ordered. EDMS 18:16 Complete Blood Count Ordered. EDMS 18:16 Ethyl Alcohol (ethanol) Ordered. EDMS 18:16 Liver Profile Ordered. EDMS 18:36 Obtain sample by nasal aspiration ordered. fg 18:36 IV Saline Lock ordered. fg 18:36 -Influenza A&B Rapid Antigen - Nose Ordered. EDMS 18:37 Chest, 1 View Ordered. EDMS 19:08 ECG WITH READING ER PHYS+CARDIAG ordered. EDMS 19:33 Basic Metabolic Profile Reviewed. mm11 19:33 Liver Profile Reviewed. mm11 19:33 Complete Blood Count Reviewed. mm11 19:33 Ethyl Alcohol (ethanol) Reviewed. mm11 19:33 -Influenza A&B Rapid Antigen - Nose Reviewed. mm11 19:36 Financial registration complete. ks16 19:36 [facility] Payment Agreement was scanned into [employer] and attached to record. ks16 20:06 PSA Outpatient Referrals was scanned into [employer] and attached to record. ml4 20:12 NS 0.9% 1000 ml IV at bolus once ordered. mm11 20:14 Creatine Phosphokinase Ordered. EDMS 20:14 Lactic Acid (Clements tube on ice) Ordered. EDMS 21:03 Basic Metabolic Profile Reviewed. mm11 21:03 Liver Profile Reviewed. mm11 21:03 Ethyl Alcohol (ethanol) Reviewed. mm11 21:03 Creatine Phosphokinase Reviewed. mm11 21:03 Lactic Acid (Clements tube on ice) Reviewed. mm11 21:50 Diazepam 5 mg IVP once ordered. mm11 22:06 Fingerstick Blood Sugar Ordered. EDMS 22:07 Fingerstick Blood Sugar Reviewed. mm11 23:08 Diazepam 5 mg IVP once ordered. mm11 23:18 Consult PFS/PSA/Shooter'S Helper: Patient's case requires discussion with on-call 4 Psychiatrist complete. 23:18 Consult PFS/PSA/Shooter'S Helper complete. ml4 08/19 12:20 T-Sheet-- Draft Copy was scanned into [employer] and attached to record. gb 12:20 ECG/EKG was scanned into [employer] and attached to record. gb Administered Medications: 08/18 20:29 Drug: NS 0.9% 1000 ml [sodium chloride 0.9 % intravenous solution] Route: IV; Rate: js15 bolus; Site: right antecubital; 22:27 Follow up: IV Status: Completed infusion; IV Intake: 1000ml js15 21:58 Drug: Diazepam 5 mg [diazepam 5 mg/mL injection syringe (1 mL)] Route: IVP; Site: right js15 antecubital; 23:26 Drug: Diazepam 5 mg [diazepam 5 mg/mL injection syringe (1 mL)] Route: IVP; Site: right kc3 antecubital; Signatures: Dispatcher [facility] EDMS Jason Sotomayor, RN RN Waleska Thrasher, Reg Reg gb Allegra Levy, PSA PSA ml4 Claudio Olvera, DO mm11 Brenda Suarez, RN RN cristianojIsabel Ernst,RN RN js15 Rowena Koch MD MD fg Sorenson, Kimberly, Reg Reg ks16 Daria Mcfarland RN kc3 The chart was reviewed and I authenticate all verbal orders and agree with the evaluation and treatment provided.Corrections: (The following items were deleted from the chart) 18:34 18:16 PSA/PFS to call Nursing Hospice Nurse Practitioner, to enter patient data on [place] Safe [place] if fg patient involuntarily admitted or transferred for SI or HI ordered. fg 18:34 18:16 ACETAMINOPHEN LEVEL+LAB ordered. EDMS EDMS 18:34 18:16 DRUG EVAL TOXICOLOGY ED ONLY+LAB ordered. EDMS EDMS 18:35 18:16 Confirm accurate psychiatric medication list and times of last dosage ordered. fg fg 18:35 18:16 Detain Pt Until Medically/PFS Cleared ordered. fg fg 18:36 18:16 SALICYLATE LEVEL+LAB ordered. EDMS EDMS 18:38 18:16 THYROID STIMULATING HORMONE+LAB ordered. EDMS EDMS 21:01 20:56 CREATINE PHOSPHOKINASE ordered. EDMS EDMS Attachments: 19:36 [facility] Payment Agreement ks16 08/19 12:20 T-Sheet-- Draft Copy gb 12:20 ECG/EKG gb Chart Complete MTDD
== END 2016-08-19 00:08 | disposition home or self-care (01) ==
LOC: M ED 18:07
DX: F32.9 Major depressive disorder, single episode, unspecified (principal); J20.9 Acute bronchitis, unspecified; I10 Essential (primary) hypertension; E11.9 Type 2 diabetes mellitus without complications; I25.2 Old myocardial infarction; E78.00 Pure hypercholesterolemia, unspecified; F41.9 Anxiety disorder, unspecified; Z79.899 Other long term (current) drug therapy; Z79.82 Long term (current) use of aspirin; Z79.4 Long term (current) use of insulin; F17.200 Nicotine dependence, unspecified, uncomplicated; Z88.5 Allergy status to narcotic agent; Z88.8 Allergy status to other drugs, medicaments and biological substances; Z98.84 Bariatric surgery status
CPT/HCPCS: 36415; 71010; 80048; 80076; 82550; 83605; 85027; 87804; 93005; 96361; 96374; 96376; 99284; G0480; J3360

== ENCOUNTER 2016-08-20 11:43 | Emergency (ER) | payer MEDICARE, OTHER, MEDICAID ==
[2016-08-20] MEDS ORDERED: ALPRAZolam 0.25 MG TAB As Ordered ONE (12:53)
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
--- NOTE | 2016-08-20 14:20 | EDDOCDS ---
Physician Documentation [facility] Name: Del Rust Age: 45 yrs Sex: Male : 1970 Arrival Date: 08/20/2016 Time: 11:43 Bed [facility] [place] Private MD: Dio Allen Disposition: 08/20/16 13:50 Discharged to Home/Self Care. Impression: Adjustment disorder with anxiety. - Condition is Stable. - Discharge Instructions: Adjustment Disorder, Generalized Anxiety Disorder. - Prescriptions for Xanax 0.25 mg Oral Tablet - take 1 tablet by ORAL route every 8 hours As needed MDD: 3 tabs; 20 tablet. - Medication Reconciliation, Local Pharmacy Hours form. - Follow up: Referral list, As provided by PFS; When: 1 - 2 days; Reason: Further diagnostic work-up, Recheck today's complaints, Continuance of care. - Problem is an ongoing problem. - Symptoms are unchanged. Historical: - Allergies: Benadryl (Upset stomach); Morphine (Upset stomach); sleeping meds (leg cramps); - Home Meds: 1. Abilify 10 mg Oral tab 1 tab once daily 2. aripiprazole 10 mg Oral tab 1 tab once daily 3. aspirin 325 mg Oral TbEC 1 tab once daily 4. atorvastatin 40 mg oral tab 1 tab once daily 5. citalopram 40 mg Oral tab 1 tab once daily 6. hydroxyzine HCl 50 mg Oral tab prn 7. Lamictal 25 mg Oral TChD 2 tabs daily 8. Lantus 100 unit/mL Sub-Q crtg 46 unit daily 9. losartan 25 mg oral tab 1 tab once daily 10. Lunesta 3 mg Oral tab 1 tab once daily 11. Novolog 100 unit/mL Sub-Q soln sliding scale after meals 12. pantoprazole 40 mg oral TbEC 1 tab once daily - PMHx: Anxiety; CVA; Diabetes - IDDM: controlled; Depression; Hypercholesterolemia; Myocardial infarction; Hypertension; - PSHx: Gastric Bypass; Appendectomy; retina reattachment (bilaterally); Cataract Surgery- Right; Cataract Surgery- Left; toe amputation; - Social history: Smoking status: Patient uses tobacco products, current every day smoker. No barriers to communication noted, The patient speaks fluent Arabic, Speaks appropriately for age. - Family history: No immediate family members are acutely ill. - : The pt / caregiver states he / she is not on anticoagulants. Home medication list is obtained from the patient, family members. - Exposure Risk Screening:: None identified. Vital Signs: 08/20 11:45 BP 134 / 78; Pulse 127; Resp 18 S; Temp 99.3(O); Pulse Ox 98% on R/A; Weight 80.74 kg / gr2 178 lbs (R); Height 5 ft. 10 in. (177.80 cm) (R); Pain 5/10; 13:31 BP 120 / 74; Pulse 92; Resp 20; Pulse Ox 98% on R/A; dwg 11:45 Body Mass Index 25.54 (80.74 kg, 177.80 cm) gr2 MDM: 11:59 Consult PFS/PSA/Animal Bounty Hunter ordered. br1 11:59 Consult PFS/PSA/Animal Bounty Hunter: Patient's case requires discussion with on-call br1 Psychiatrist ordered. 11:59 PSA/PFS to call Nursing Store Clerk, to enter patient data on [place] Safe [place] if patient br1 involuntarily admitted or transferred for SI or HI ordered. 11:59 Confirm accurate psychiatric medication list and times of last dosage ordered. br1 11:59 Detain Pt Until Medically/PFS Cleared ordered. br1 12:26 REGULAR DIET PLASTIC WATSON+DIET ordered. EDMS 12:32 ALPRAZolam Tablet 1 mg PO once ordered. ke 13:29 PSA Outpatient Referrals was scanned into [employer] and attached to record. rb 13:43 Consult PFS/PSA/Animal Bounty Hunter complete. rb 13:43 Consult PFS/PSA/Animal Bounty Hunter: Patient's case requires discussion with on-call rb Psychiatrist complete. 13:43 PSA/PFS to call Nursing Store Clerk, to enter patient data [place] if patient rb involuntarily admitted or transferred for SI or HI complete. Administered Medications: 13:05 Drug: ALPRAZolam 1 mg [alprazolam 0.25 mg tablet (4 tabs)] Route: PO; tom Signatures: Dispatcher [employer] EDMS Fito Cleveland RN RN dwg Michelson, Staci, RN RN srm Newman, Radha, PSA PSA rb Remberto Vegas, DIRECTOR TELEVISION DIRECTOR TELEVISION Arpan Rodriguez MD MD br1 The chart was reviewed and I authenticate all verbal orders and agree with the evaluation and treatment provided.Corrections: (The following items were deleted from the chart) : 12:00 ACETAMINOPHEN LEVEL+LAB ordered. EDMS EDMS 12:00 BASIC METABOLIC PROFILE+LAB ordered. EDMS EDMS 12:00 COMPLETE BLOOD COUNT+LAB ordered. EDMS EDMS 12:00 DRUG EVAL TOXICOLOGY ED ONLY+LAB ordered. EDMS EDMS 12:00 ETHYL ALCOHOL (ETHANOL)+LAB ordered. EDMS EDMS 12:00 LIVER PROFILE+LAB ordered. EDMS EDMS 12:00 SALICYLATE LEVEL+LAB ordered. EDMS EDMS 12:00 THYROID STIMULATING HORMONE+LAB ordered. EDMS EDMS MTDD
--- NOTE | 2016-08-22 15:20 | EDDOCDS ---
Physician Documentation [facility] Name: Del Rust Age: 45 yrs Sex: Male : 1970 Arrival Date: 08/20/2016 Time: 11:43 Bed [facility] Private MD: Dio Allen Disposition: 08/20/16 13:50 Discharged to Home/Self Care. Impression: Adjustment disorder with anxiety. - Condition is Stable. - Discharge Instructions: Adjustment Disorder, Generalized Anxiety Disorder. - Prescriptions for Xanax 0.25 mg Oral Tablet - take 1 tablet by ORAL route every 8 hours As needed MDD: 3 tabs; 20 tablet. - Medication Reconciliation, Local Pharmacy Hours form. - Follow up: Referral list, As provided by PFS; When: 1 - 2 days; Reason: Further diagnostic work-up, Recheck today's complaints, Continuance of care. - Problem is an ongoing problem. - Symptoms are unchanged. Historical: - Allergies: Benadryl (Upset stomach); Morphine (Upset stomach); sleeping meds (leg cramps); - Home Meds: 1. Abilify 10 mg Oral tab 1 tab once daily 2. aripiprazole 10 mg Oral tab 1 tab once daily 3. aspirin 325 mg Oral TbEC 1 tab once daily 4. atorvastatin 40 mg oral tab 1 tab once daily 5. citalopram 40 mg Oral tab 1 tab once daily 6. hydroxyzine HCl 50 mg Oral tab prn 7. Lamictal 25 mg Oral TChD 2 tabs daily 8. Lantus 100 unit/mL Sub-Q crtg 46 unit daily 9. losartan 25 mg oral tab 1 tab once daily 10. Lunesta 3 mg Oral tab 1 tab once daily 11. Novolog 100 unit/mL Sub-Q soln sliding scale after meals 12. pantoprazole 40 mg oral TbEC 1 tab once daily - PMHx: Anxiety; CVA; Diabetes - IDDM: controlled; Depression; Hypercholesterolemia; Myocardial infarction; Hypertension; - PSHx: Gastric Bypass; Appendectomy; retina reattachment (bilaterally); Cataract Surgery- Right; Cataract Surgery- Left; toe amputation; - Social history: Smoking status: Patient uses tobacco products, current every day smoker. No barriers to communication noted, The patient speaks fluent Japanese, Speaks appropriately for age. - Family history: No immediate family members are acutely ill. - : The pt / caregiver states he / she is not on anticoagulants. Home medication list is obtained from the patient, family members. - Exposure Risk Screening:: None identified. Vital Signs: 08/20 11:45 BP 134 / 78; Pulse 127; Resp 18 S; Temp 99.3(O); Pulse Ox 98% on R/A; Weight 80.74 kg / gr2 178 lbs (R); Height 5 ft. 10 in. (177.80 cm) (R); Pain 5/10; 13:31 BP 120 / 74; Pulse 92; Resp 20; Pulse Ox 98% on R/A; dwg 11:45 Body Mass Index 25.54 (80.74 kg, 177.80 cm) gr2 MDM: 11:59 Consult PFS/PSA/Prefabricator ordered. br1 11:59 Consult PFS/PSA/Prefabricator: Patient's case requires discussion with on-call br1 Psychiatrist ordered. 11:59 PSA/PFS to call Nursing Senior Industrial Engineer, to enter patient data on [place] if patient br1 involuntarily admitted or transferred for SI or HI ordered. 11:59 Confirm accurate psychiatric medication list and times of last dosage ordered. br1 11:59 Detain Pt Until Medically/PFS Cleared ordered. br1 12:26 REGULAR DIET PLASTIC WATSON+DIET ordered. EDMS 12:32 ALPRAZolam Tablet 1 mg PO once ordered. ke 13:29 PSA Outpatient Referrals was scanned into [employer] and attached to record. rb 13:43 Consult PFS/PSA/Prefabricator complete. rb 13:43 Consult PFS/PSA/Prefabricator: Patient's case requires discussion with on-call rb Psychiatrist complete. 13:43 PSA/PFS to call Nursing Senior Industrial Engineer, to enter [place] data [place] if patient rb involuntarily admitted or transferred for SI or HI complete. 16:14 T-Sheet-- Draft Copy was scanned into [employer] and attached to record. klr Administered Medications: 13:05 Drug: ALPRAZolam 1 mg [alprazolam 0.25 mg tablet (4 tabs)] Route: PO; tom Signatures: Dispatcher [employer] EDFito Muse RN RN dwg Michelson, Staci, RN RN [facility] Newman, Radha, PSA PSA rb Remberto Vegas, DRESSMAKER GARMENT FITTER DRESSMAKER GARMENT FITTER Arpan Rodriguez MD MD br1 Breanne Fraser klr The chart was reviewed and I authenticate all verbal orders and agree with the evaluation and treatment provided.Corrections: (The following items were deleted from the chart) 12:34 12:00 ACETAMINOPHEN LEVEL+LAB ordered. EDMS EDMS 12:00 BASIC METABOLIC PROFILE+LAB ordered. EDMS EDMS 12:00 COMPLETE BLOOD COUNT+LAB ordered. EDMS EDMS 12:00 DRUG EVAL TOXICOLOGY ED ONLY+LAB ordered. EDMS EDMS 12:00 ETHYL ALCOHOL (ETHANOL)+LAB ordered. EDMS EDMS 35 12:00 LIVER PROFILE+LAB ordered. EDMS EDMS 12:00 SALICYLATE LEVEL+LAB ordered. EDMS EDMS :35 12:00 THYROID STIMULATING HORMONE+LAB ordered. EDMS EDMS Attachments: 16:14 T-Sheet-- Draft Copy klr Chart Complete MTDD
--- NOTE | 2016-08-22 15:20 | EDDOCDS ---
Physician Documentation [facility] Name: Del Rust Age: 45 yrs Sex: Male : 1970 Arrival Date: 08/20/2016 Time: 11:43 Bed [facility] Private MD: Dio Allen Disposition: 08/20/16 13:50 Discharged to Home/Self Care. Impression: Adjustment disorder with anxiety. - Condition is Stable. - Discharge Instructions: Adjustment Disorder, Generalized Anxiety Disorder. - Prescriptions for Xanax 0.25 mg Oral Tablet - take 1 tablet by ORAL route every 8 hours As needed MDD: 3 tabs; 20 tablet. - Medication Reconciliation, Local Pharmacy Hours form. - Follow up: Referral list, As provided by PFS; When: 1 - 2 days; Reason: Further diagnostic work-up, Recheck today's complaints, Continuance of care. - Problem is an ongoing problem. - Symptoms are unchanged. Historical: - Allergies: Benadryl (Upset stomach); Morphine (Upset stomach); sleeping meds (leg cramps); - Home Meds: 1. Abilify 10 mg Oral tab 1 tab once daily 2. aripiprazole 10 mg Oral tab 1 tab once daily 3. aspirin 325 mg Oral TbEC 1 tab once daily 4. atorvastatin 40 mg oral tab 1 tab once daily 5. citalopram 40 mg Oral tab 1 tab once daily 6. hydroxyzine HCl 50 mg Oral tab prn 7. Lamictal 25 mg Oral TChD 2 tabs daily 8. Lantus 100 unit/mL Sub-Q crtg 46 unit daily 9. losartan 25 mg oral tab 1 tab once daily 10. Lunesta 3 mg Oral tab 1 tab once daily 11. Novolog 100 unit/mL Sub-Q soln sliding scale after meals 12. pantoprazole 40 mg oral TbEC 1 tab once daily - PMHx: Anxiety; CVA; Diabetes - IDDM: controlled; Depression; Hypercholesterolemia; Myocardial infarction; Hypertension; - PSHx: Gastric Bypass; Appendectomy; retina reattachment (bilaterally); Cataract Surgery- Right; Cataract Surgery- Left; toe amputation; - Social history: Smoking status: Patient uses tobacco products, current every day smoker. No barriers to communication noted, The patient speaks fluent Kyrgyz, Speaks appropriately for age. - Family history: No immediate family members are acutely ill. - : The pt / caregiver states he / she is not on anticoagulants. Home medication list is obtained from the patient, family members. - Exposure Risk Screening:: None identified. Vital Signs: 08/20 11:45 BP 134 / 78; Pulse 127; Resp 18 S; Temp 99.3(O); Pulse Ox 98% on R/A; Weight 80.74 kg / gr2 178 lbs (R); Height 5 ft. 10 in. (177.80 cm) (R); Pain 5/10; 13:31 BP 120 / 74; Pulse 92; Resp 20; Pulse Ox 98% on R/A; dwg 11:45 Body Mass Index 25.54 (80.74 kg, 177.80 cm) gr2 MDM: 11:59 Consult PFS/PSA/Mass Communications Instructor ordered. br1 11:59 Consult PFS/PSA/Mass Communications Instructor: Patient's case requires discussion with on-call br1 Psychiatrist ordered. 11:59 PSA/PFS to call Nursing Crystallographer, to enter patient data on [place] Safe [place] if patient br1 involuntarily admitted or transferred for SI or HI ordered. 11:59 Confirm accurate psychiatric medication list and times of last dosage ordered. br1 11:59 Detain Pt Until Medically/PFS Cleared ordered. br1 12:26 REGULAR DIET PLASTIC WATSON+DIET ordered. EDMS 12:32 ALPRAZolam Tablet 1 mg PO once ordered. ke 13:29 PSA Outpatient Referrals was scanned into [employer] and attached to record. rb 13:43 Consult PFS/PSA/Mass Communications Instructor complete. rb 13:43 Consult PFS/PSA/Mass Communications Instructor: Patient's case requires discussion with on-call rb Psychiatrist complete. 13:43 PSA/PFS to call Nursing Crystallographer, to enter patient data [place] Safe [place] if patient rb involuntarily admitted or transferred for SI or HI complete. 16:14 T-Sheet-- Draft Copy was scanned into [employer] and attached to record. klr Administered Medications: 13:05 Drug: ALPRAZolam 1 mg [alprazolam 0.25 mg tablet (4 tabs)] Route: PO; tom Signatures: Dispatcher [employer] EDFito Muse RN RN dwg Michelson, Staci, RN RN [facility] Newman, Radha, PSA PSA rb Remberto Vegas, TRIM LINE WORKER TRIM LINE WORKER Arpan Rodriguez MD MD br1 Breanne Fraser klr The chart was reviewed and I authenticate all verbal orders and agree with the evaluation and treatment provided.Corrections: (The following items were deleted from the chart) 12:34 12:00 ACETAMINOPHEN LEVEL+LAB ordered. EDMS EDMS 12:00 BASIC METABOLIC PROFILE+LAB ordered. EDMS EDMS 12:00 COMPLETE BLOOD COUNT+LAB ordered. EDMS EDMS 12:00 DRUG EVAL TOXICOLOGY ED ONLY+LAB ordered. EDMS EDMS 12:00 ETHYL ALCOHOL (ETHANOL)+LAB ordered. EDMS EDMS 35 12:00 LIVER PROFILE+LAB ordered. EDMS EDMS 12:00 SALICYLATE LEVEL+LAB ordered. EDMS EDMS :35 12:00 THYROID STIMULATING HORMONE+LAB ordered. EDMS EDMS Attachments: 16:14 T-Sheet-- Draft Copy klr Chart Complete MTDD
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
== END 2016-08-20 14:19 | disposition home or self-care (01) ==
LOC: M ED 11:43
DX: F43.0 Acute stress reaction (principal); F41.9 Anxiety disorder, unspecified; E11.9 Type 2 diabetes mellitus without complications; F32.9 Major depressive disorder, single episode, unspecified; E78.00 Pure hypercholesterolemia, unspecified; I25.2 Old myocardial infarction; I10 Essential (primary) hypertension; Z98.84 Bariatric surgery status; Z86.73 Personal history of transient ischemic attack (TIA), and cerebral infarction without residual deficits; Z79.82 Long term (current) use of aspirin; Z79.4 Long term (current) use of insulin; Z79.899 Other long term (current) drug therapy; Z88.8 Allergy status to other drugs, medicaments and biological substances; Z88.5 Allergy status to narcotic agent

== ENCOUNTER 2016-08-21 14:36 | Emergency (ER) | payer MEDICARE, OTHER, MEDICAID ==
[2016-08-21] MEDS ORDERED: ALPRAZolam 0.25 MG TAB As Ordered ONE (15:30)
--- NOTE | 2016-08-21 16:10 | EDDOCDS ---
Physician Documentation [facility] Name: Del Rust Age: 45 yrs Sex: Male : 1970 Arrival Date: 08/21/2016 Time: 14:36 Bed I8 / 16 Private MD: Dio Allen Disposition: 08/21/16 15:40 Discharged to Home/Self Care. Impression: Anxiety disorder, unspecified. - Condition is Stable. - Discharge Instructions: Generalized Anxiety Disorder. - Medication Reconciliation, Local Pharmacy Hours form. - Follow up: Dio Allen MD; When: 2 - 3 days; Reason: Recheck today's complaints. - Problem is an ongoing problem. - Symptoms are unchanged. - Notes: You were seen in the ED requesting a dose of your Xanax as you have left it at home. This was provided. Return to the ED for any other chest pain, trouble breathing, lightheadedness, or any other concerns, and follow up with your primary doctor as previously instructed. Historical: - Allergies: Benadryl (Upset stomach); Morphine (Upset stomach); sleeping meds (leg cramps); - Home Meds: 1. Xanax 1 mg Oral tab 3 times per day (Last dose: 08/21/2016 06:15) 2. Abilify 10 mg Oral tab 1 tab once daily 3. aripiprazole 10 mg Oral tab 1 tab once daily 4. aspirin 325 mg Oral TbEC 1 tab once daily 5. atorvastatin 40 mg oral tab 1 tab once daily 6. citalopram 40 mg Oral tab 1 tab once daily 7. hydroxyzine HCl 50 mg Oral tab prn 8. Lamictal 25 mg Oral TChD 2 tabs daily 9. Lantus 100 unit/mL Sub-Q crtg 46 unit daily 10. losartan 25 mg oral tab 1 tab once daily 11. Lunesta 3 mg Oral tab 1 tab once daily 12. Novolog 100 unit/mL Sub-Q soln sliding scale after meals 13. pantoprazole 40 mg oral TbEC 1 tab once daily - PMHx: Anxiety; CVA; Depression; Diabetes - IDDM: controlled; Hypercholesterolemia; Hypertension; Myocardial infarction; - PSHx: Gastric Bypass; Appendectomy; retina reattachment (bilaterally); toe amputation; Cataract Surgery- Left; Cataract Surgery- Right; - Social history: Smoking status: Patient uses tobacco products, heavy tobacco smoker. No barriers to communication noted, The patient speaks fluent [place], Speaks appropriately for age. - : The pt / caregiver states he / she is not on anticoagulants. Home medication list is obtained from the patient. - Exposure Risk Screening:: None identified. Vital Signs: 08/21 14:39 BP 133 / 86 RA Sitting (auto/reg); Pulse 109; Resp 18; Temp 98.5(O); Pulse Ox 100% on jrd R/A; Weight 80.74 kg / 178 lbs (R); Height 5 ft. 10 in. (177.80 cm) (R); Pain 0/10; 15:57 BP 118 / 78 LA Sitting (auto/lg); Pulse 98; Resp 20; Temp 98.5(O); Pulse Ox 97% on R/A; bnb Pain 0/10; 14:39 Body Mass Index 25.54 (80.74 kg, 177.80 cm) jrd MDM: 15:07 ALPRAZolam Tablet 0.25 mg PO once ordered. br1 Administered Medications: 15:35 Drug: ALPRAZolam 0.25 mg [alprazolam 0.25 mg tablet (1 tabs)] Route: PO; ashwin Signatures: Dylan Palmer RN RN jmk Kim-Ashcraft, Connie, RN RN ck1 Arpan Brenner MD MD br1 MTDD
--- NOTE | 2016-08-21 16:10 | EDDOCDS ---
Nurse's Notes [facility] Name: Del Rust Age: 45 yrs Sex: Male : 1970 Arrival Date: 08/21/2016 Time: 14:36 Bed I8 Private MD: Dio Allen Diagnosis: Anxiety disorder, unspecified Presentation: 08/21 14:42 Presenting complaint: Patient states: Seen here yesterday and prescribed "something ck1 that helped my anxiety real good". Here today with father, who is a patient, requesting same medication. "My pills are at home and it is going to be a long night". Mental Health Triage Level: Level 1- Pt displays no suicidal or homicidal ideations and does not appear to be a danger to self or others. Adult Sepsis Screening: The patient does not have new or worsening altered mentation. Patient's respiratory rate is less than 22. Systolic blood pressure is greater than 100. Patient has a qSOFA score of 0- Negative Sepsis Screen. Suicide/Homicide risk assessment- the patient denies having any suicidal and/or homicidal ideations and does not present with any other emotional, behavioral or mental health complaints. Status: Patient is not a private branch exchange service adviser or dependent. Transition of care: patient was not received from another setting of care. 14:42 Acuity: EDWARD Level 5 ck1 14:42 Method Of Arrival: Walkin/Carried/Asstd ck1 14:46 Red Flag criteria, patient assessed and is suitable to finish the RCE Process. ck1 Triage Assessment: 14:46 General: Appears in no apparent distress, comfortable, Behavior is appropriate for age, ck1 cooperative. Pain: Denies pain. HIV screening NA for this visit Offered previously. Neurological: Level of Consciousness is awake, alert, obeys commands, Oriented to person, place, time. Respiratory: Respiratory effort is unlabored, Respiratory pattern is regular, symmetrical. Derm: Skin is pink, warm & dry. Historical: - Allergies: Benadryl (Upset stomach); Morphine (Upset stomach); sleeping meds (leg cramps); - Home Meds: 1. Xanax 1 mg Oral tab 3 times per day (Last dose: 08/21/2016 06:15) 2. Abilify 10 mg Oral tab 1 tab once daily 3. aripiprazole 10 mg Oral tab 1 tab once daily 4. aspirin 325 mg Oral TbEC 1 tab once daily 5. atorvastatin 40 mg oral tab 1 tab once daily 6. citalopram 40 mg Oral tab 1 tab once daily 7. hydroxyzine HCl 50 mg Oral tab prn 8. Lamictal 25 mg Oral TChD 2 tabs daily 9. Lantus 100 unit/mL Sub-Q crtg 46 unit daily 10. losartan 25 mg oral tab 1 tab once daily 11. Lunesta 3 mg Oral tab 1 tab once daily 12. Novolog 100 unit/mL Sub-Q soln sliding scale after meals 13. pantoprazole 40 mg oral TbEC 1 tab once daily - PMHx: Anxiety; CVA; Depression; Diabetes - IDDM: controlled; Hypercholesterolemia; Hypertension; Myocardial infarction; - PSHx: Gastric Bypass; Appendectomy; retina reattachment (bilaterally); toe amputation; Cataract Surgery- Left; Cataract Surgery- Right; - Social history: Smoking status: Patient uses tobacco products, heavy tobacco smoker. No barriers to communication noted, The patient speaks fluent [place], Speaks appropriately for age. - : The pt / caregiver states he / she is not on anticoagulants. Home medication list is obtained from the patient. - Exposure Risk Screening:: None identified. Screenin:40 Screening information is obtained from the patient. Fall risk: No risks identified. k Assistance ADL's: requires no assistance with activities of daily living. Abuse/DV Screen: The patient / caregiver reports he/she is: not in a situation that causes fear, pain or injury. Nutritional screening: No deficits noted. Advance Directives: Currently, there is no health care proxy. There is no active DNR order. There is no living will. There is no Power of Overlocker. Advance directive information has not previously been placed in an [facility] medical record. home support is adequate. Assessment: 15:35 General: Appears skin warm and dry. color satisfactory. Moist pin k oral mucosa, jmk without pain reports racing of mind. denies suicidal or homicidal ideations. alert and cooperative. responses of adequate content and demeanor. . 16:07 General: Appears receptive to discharge. remains alert and oriented x 3.. k Vital Signs: 14:39 BP 133 / 86 RA Sitting (auto/reg); Pulse 109; Resp 18; Temp 98.5(O); Pulse Ox 100% on jrd R/A; Weight 80.74 kg (R); Height 5 ft. 10 in. (177.80 cm) (R); Pain 0/10; 15:57 BP 118 / 78 LA Sitting (auto/lg); Pulse 98; Resp 20; Temp 98.5(O); Pulse Ox 97% on R/A; bnb Pain 0/10; 14:39 Body Mass Index 25.54 (80.74 kg, 177.80 cm) jrd Vitals: 14:39 Log In Time: August 21, 2016 at 14:36. jrd 14:39 RN notified that patient meets Red Flag criteria. jrd ED Course: 14:38 Patient visited by Del Navarro PCA. jrd 14:38 Patient moved to Waiting jrd 14:39 Dio Allen MD is Private Physician. jrd 14:40 Patient visited by Del Navarro PCA. jrd 14:44 Triage Initiated ck1 14:47 Patient moved to Pre RCE ck1 14:58 Arpan Brenner MD is Attending Physician. br1 14:58 Patient moved to I8 / 16 ck1 15:07 Patient visited by Arpan Brenner MD. br1 15:40 Dio Allen MD is Referral Physician. br1 15:40 The patient / caregiver is instructed regarding the plan of care and ED course. jmk 15:58 Patient visited by Laine Martinez PCA. bnb Administered Medications: 15:35 Drug: ALPRAZolam 0.25 mg [alprazolam 0.25 mg tablet (1 tabs)] Route: PO; ashwin Order Results: There are currently no results for this order. Outcome: 15:40 Discharge ordered by Provider. br1 16:09 Patient left the ED. ashwin Signatures: Dylan Palmer,RN RN Joanne CarlosRN RN ck1 Arpan Brenner MD MD br1 Del Navarro PCA LATEX THREAD MACHINE OPERATOR jrd Laine Martinez PCA PCA bnb MTDD
--- NOTE | 2016-08-23 17:10 | EDDOCDS ---
Nurse's Notes [facility] Name: Del Rust Age: 45 yrs Sex: Male : 1970 Arrival Date: 08/21/2016 Time: 14:36 Bed I8 Private MD: Dio Allen Diagnosis: Anxiety disorder, unspecified Presentation: 08/21 14:42 Presenting complaint: Patient states: Seen here yesterday and prescribed "something ck1 that helped my anxiety real good". Here today with father, who is a patient, requesting same medication. "My pills are at home and it is going to be a long night". Mental Health Triage Level: Level 1- Pt displays no suicidal or homicidal ideations and does not appear to be a danger to self or others. Adult Sepsis Screening: The patient does not have new or worsening altered mentation. Patient's respiratory rate is less than 22. Systolic blood pressure is greater than 100. Patient has a qSOFA score of 0- Negative Sepsis Screen. Suicide/Homicide risk assessment- the patient denies having any suicidal and/or homicidal ideations and does not present with any other emotional, behavioral or mental health complaints. Status: Patient is not a veterans services specialist or dependent. Transition of care: patient was not received from another setting of care. 14:42 Acuity: EDWARD Level 5 ck1 14:42 Method Of Arrival: Walkin/Carried/Asstd ck1 14:46 Red Flag criteria, patient assessed and is suitable to finish the RCE Process. ck1 Triage Assessment: 14:46 General: Appears in no apparent distress, comfortable, Behavior is appropriate for age, ck1 cooperative. Pain: Denies pain. HIV screening NA for this visit Offered previously. Neurological: Level of Consciousness is awake, alert, obeys commands, Oriented to person, place, time. Respiratory: Respiratory effort is unlabored, Respiratory pattern is regular, symmetrical. Derm: Skin is pink, warm & dry. Historical: - Allergies: Benadryl (Upset stomach); Morphine (Upset stomach); sleeping meds (leg cramps); - Home Meds: 1. Xanax 1 mg Oral tab 3 times per day (Last dose: 08/21/2016 06:15) 2. Abilify 10 mg Oral tab 1 tab once daily 3. aripiprazole 10 mg Oral tab 1 tab once daily 4. aspirin 325 mg Oral TbEC 1 tab once daily 5. atorvastatin 40 mg oral tab 1 tab once daily 6. citalopram 40 mg Oral tab 1 tab once daily 7. hydroxyzine HCl 50 mg Oral tab prn 8. Lamictal 25 mg Oral TChD 2 tabs daily 9. Lantus 100 unit/mL Sub-Q crtg 46 unit daily 10. losartan 25 mg oral tab 1 tab once daily 11. Lunesta 3 mg Oral tab 1 tab once daily 12. Novolog 100 unit/mL Sub-Q soln sliding scale after meals 13. pantoprazole 40 mg oral TbEC 1 tab once daily - PMHx: Anxiety; CVA; Depression; Diabetes - IDDM: controlled; Hypercholesterolemia; Hypertension; Myocardial infarction; - PSHx: Gastric Bypass; Appendectomy; retina reattachment (bilaterally); toe amputation; Cataract Surgery- Left; Cataract Surgery- Right; - Social history: Smoking status: Patient uses tobacco products, heavy tobacco smoker. No barriers to communication noted, The patient speaks fluent Cape Verdean, Speaks appropriately for age. - : The pt / caregiver states he / she is not on anticoagulants. Home medication list is obtained from the patient. - Exposure Risk Screening:: None identified. Screenin:40 Screening information is obtained from the patient. Fall risk: No risks identified. k Assistance ADL's: requires no assistance with activities of daily living. Abuse/DV Screen: The patient / caregiver reports he/she is: not in a situation that causes fear, pain or injury. Nutritional screening: No deficits noted. Advance Directives: Currently, there is no health care proxy. There is no active DNR order. There is no living will. There is no Power of Medical Office Assistant Instructor. Advance directive information has not previously been placed in an [facility] medical record. home support is adequate. Assessment: 15:35 General: Appears skin warm and dry. color satisfactory. Moist pin k oral mucosa, jmk without pain reports racing of mind. denies suicidal or homicidal ideations. alert and cooperative. responses of adequate content and demeanor. . 16:07 General: Appears receptive to discharge. remains alert and oriented x 3.. k Vital Signs: 14:39 BP 133 / 86 RA Sitting (auto/reg); Pulse 109; Resp 18; Temp 98.5(O); Pulse Ox 100% on jrd R/A; Weight 80.74 kg (R); Height 5 ft. 10 in. (177.80 cm) (R); Pain 0/10; 15:57 BP 118 / 78 LA Sitting (auto/lg); Pulse 98; Resp 20; Temp 98.5(O); Pulse Ox 97% on R/A; bnb Pain 0/10; 14:39 Body Mass Index 25.54 (80.74 kg, 177.80 cm) jrd Vitals: 14:39 Log In Time: August 21, 2016 at 14:36. jrd 14:39 RN notified that patient meets Red Flag criteria. jrd ED Course: 14:38 Patient visited by Del Navarro PCA. jrd 14:38 Patient moved to Waiting jrd 14:39 Dio Allen MD is Private Physician. jrd 14:40 Patient visited by Del Navarro PCA. jrd 14:44 Triage Initiated ck1 14:47 Patient moved to Pre RCE ck1 14:58 Arpan Brenner MD is Attending Physician. br1 14:58 Patient moved to I8 / 16 ck1 15:07 Patient visited by Arpan Brenner MD. br1 15:40 Dio Allen MD is Referral Physician. br1 15:40 The patient / caregiver is instructed regarding the plan of care and ED course. jmk 15:58 Patient visited by Laine Martinez PCA. bnb 08/22 12:43 T-Sheet-- Draft Copy was scanned into [employer] and attached to record. gb Administered Medications: 08/21 15:35 Drug: ALPRAZolam 0.25 mg [alprazolam 0.25 mg tablet (1 tabs)] Route: PO; ashwin Order Results: There are currently no results for this order. Outcome: 15:40 Discharge ordered by Provider. br1 16:09 Patient left the ED. ashwin Signatures: Dylan Palmer,RN RN Waleska Santos, Reg Reg Joanne GomezRN RN ck1 Arpan Brenner MD MD br1 Del Navarro PCA PCA jrd Laine Martinez PCA PCA bnb Chart Complete MTDD
--- NOTE | 2016-08-23 17:10 | EDDOCDS ---
Physician Documentation [facility] Name: Del Rust Age: 45 yrs Sex: Male : 1970 Arrival Date: 08/21/2016 Time: 14:36 Bed I8 / 16 Private MD: Dio Allen Disposition: 08/21/16 15:40 Discharged to Home/Self Care. Impression: Anxiety disorder, unspecified. - Condition is Stable. - Discharge Instructions: Generalized Anxiety Disorder. - Medication Reconciliation, Local Pharmacy Hours form. - Follow up: Dio Allen MD; When: 2 - 3 days; Reason: Recheck today's complaints. - Problem is an ongoing problem. - Symptoms are unchanged. - Notes: You were seen in the ED requesting a dose of your Xanax as you have left it at home. This was provided. Return to the ED for any other chest pain, trouble breathing, lightheadedness, or any other concerns, and follow up with your primary doctor as previously instructed. Historical: - Allergies: Benadryl (Upset stomach); Morphine (Upset stomach); sleeping meds (leg cramps); - Home Meds: 1. Xanax 1 mg Oral tab 3 times per day (Last dose: 08/21/2016 06:15) 2. Abilify 10 mg Oral tab 1 tab once daily 3. aripiprazole 10 mg Oral tab 1 tab once daily 4. aspirin 325 mg Oral TbEC 1 tab once daily 5. atorvastatin 40 mg oral tab 1 tab once daily 6. citalopram 40 mg Oral tab 1 tab once daily 7. hydroxyzine HCl 50 mg Oral tab prn 8. Lamictal 25 mg Oral TChD 2 tabs daily 9. Lantus 100 unit/mL Sub-Q crtg 46 unit daily 10. losartan 25 mg oral tab 1 tab once daily 11. Lunesta 3 mg Oral tab 1 tab once daily 12. Novolog 100 unit/mL Sub-Q soln sliding scale after meals 13. pantoprazole 40 mg oral TbEC 1 tab once daily - PMHx: Anxiety; CVA; Depression; Diabetes - IDDM: controlled; Hypercholesterolemia; Hypertension; Myocardial infarction; - PSHx: Gastric Bypass; Appendectomy; retina reattachment (bilaterally); toe amputation; Cataract Surgery- Left; Cataract Surgery- Right; - Social history: Smoking status: Patient uses tobacco products, heavy tobacco smoker. No barriers to communication noted, The patient speaks fluent Danish, Speaks appropriately for age. - : The pt / caregiver states he / she is not on anticoagulants. Home medication list is obtained from the patient. - Exposure Risk Screening:: None identified. Vital Signs: 08/21 14:39 BP 133 / 86 RA Sitting (auto/reg); Pulse 109; Resp 18; Temp 98.5(O); Pulse Ox 100% on jrd R/A; Weight 80.74 kg / 178 lbs (R); Height 5 ft. 10 in. (177.80 cm) (R); Pain 0/10; 15:57 BP 118 / 78 LA Sitting (auto/lg); Pulse 98; Resp 20; Temp 98.5(O); Pulse Ox 97% on R/A; bnb Pain 0/10; 14:39 Body Mass Index 25.54 (80.74 kg, 177.80 cm) jrd MDM: 15:07 ALPRAZolam Tablet 0.25 mg PO once ordered. br1 08/22 12:43 T-Sheet-- Draft Copy was scanned into [employer] and attached to record. gb Administered Medications: 08/21 15:35 Drug: ALPRAZolam 0.25 mg [alprazolam 0.25 mg tablet (1 tabs)] Route: PO; ashwin Signatures: Dylan Palmer,RN RN Waleska Santos, Reg Reg Joanne Gomez RN RN ck1 Arpan Brenner MD MD br1 The chart was reviewed and I authenticate all verbal orders and agree with the evaluation and treatment provided.Attachments: 08/22 12:43 T-Sheet-- Draft Copy gb Chart Complete MTDD
== END 2016-08-21 16:09 | disposition home or self-care (01) ==
LOC: M ED 14:36
DX: F41.9 Anxiety disorder, unspecified (principal); F32.9 Major depressive disorder, single episode, unspecified; E11.9 Type 2 diabetes mellitus without complications; E78.00 Pure hypercholesterolemia, unspecified; I10 Essential (primary) hypertension; I25.2 Old myocardial infarction; Z86.73 Personal history of transient ischemic attack (TIA), and cerebral infarction without residual deficits; F17.210 Nicotine dependence, cigarettes, uncomplicated; Z79.4 Long term (current) use of insulin; Z79.82 Long term (current) use of aspirin; Z79.899 Other long term (current) drug therapy; Z88.8 Allergy status to other drugs, medicaments and biological substances; Z88.5 Allergy status to narcotic agent

== ENCOUNTER 2016-10-01 18:15 | Inpatient (IN) | payer MEDICAID, MEDICARE, OTHER ==
[~2016-10-01] VITALS: Ht 177.8 cm; Wt 82.2 kg
[2016-10-01] MEDS ORDERED: HYDR-4274 PO (18:39)
[2016-10-01] MEDS ORDERED: ARIP1TAB PO (18:39)
[2016-10-01] MEDS ORDERED: REME15TA PO (18:39)
[2016-10-01] MEDS ORDERED: MORPHINE 2 MG/ML 1ML SYRINGE IV ONE ×2 (19:00→21:00)
[2016-10-01] MEDS ORDERED: NS 1,000 ML IV ONE ×2 (19:00→21:45)
[2016-10-01] MEDS ORDERED: ONDANSETRON 4MG/2ML VIAL (J2405) IV ONE (19:00)
[2016-10-01 19:02] LABS: BASO % 0.9 % (0.0-1.0); EOS # 0.2 K/mm3 (0.0-0.50); EOS % 5.1 % (0.0-3.0); LARGE UNSTAINED CELL # 0.1 K/mm3 (0.0-0.4); LARGE UNSTAINED CELL % 2.5 % (0.0-4.0); LYMPH # 1.2 K/mm3 (1.5-4.5); LYMPH % 27.6 % (24.0-44.0); MEAN CORPUSCULAR HEMOGLOBIN 29.9 pg (27.0-33.0); MEAN CORPUSCULAR HGB CONC 32.1 g/dl (32.0-36.5); MEAN CORPUSCULAR VOLUME 93.2 fl (80.0-96.0); MONO # 0.3 K/mm3 (0.0-0.8); MONO % 6.5 % (0.0-5.0); NEUTROPHILS # 2.5 K/mm3 (1.8-7.7); NEUTROPHILS % 57.4 % (36.0-66.0); PLATELET COUNT, AUTOMATED 249 k/mm3 (150-450); RED CELL DISTRIBUTION WIDTH 12.8 % (11.5-14.5); WHITE BLOOD COUNT 4.4 K/mm3 (4.0-10.0)
[2016-10-01 19:12] LABS: ANION GAP 15 MEQ/L (8-16); AST/SGOT 17 U/L (15-37); BLOOD UREA NITROGEN 12 MG/DL (7-18); CALCIUM LEVEL 8.8 MG/DL (8.5-10.1); CARBON DIOXIDE LEVEL 19 MEQ/L (21-32); CHLORIDE LEVEL 103 MEQ/L (98-107); CREATININE FOR GFR 1.17 MG/DL (0.70-1.30); GLOMERULAR FILTRATION RATE > 60.0 (>60); POTASSIUM SERUM 4.9 MEQ/L (3.5-5.1); SODIUM LEVEL 137 MEQ/L (136-145)
[2016-10-01 19:13] LABS: ALBUMIN 3.6 GM/DL (3.2-5.2); ALBUMIN/GLOBULIN RATIO 1.06 (1.00-1.93); ALKALINE PHOSPHATASE 121 U/L (45-117); ALT/SGPT 30 U/L (12-78); BILIRUBIN,DIRECT 0.2 MG/DL (0.0-0.2)
[2016-10-01 19:15] LABS: GLUCOSE, FASTING 455 MG/DL (70-105)
[2016-10-01] MEDS ORDERED: ISOVUE-370 76% 100ML VIAL (Q9967) As Ordered ONE (19:21)
[2016-10-01 20:10] LABS: CENTRAL VEN BASE EXCESS -0.8; CENTRAL VEN O2 SATURATION 98.1 %; CENTRAL VEN PARTL PRESSURE CO2 22.4 mmHg; CENTRAL VEN PARTL PRESSURE O2 112.5 mmHg; CENTRAL VEN STANDARD HCO3 23.8 MEQ/L; CENTRAL VENOUS HCO3 19.3 MEQ/L; CENTRAL VENOUS PH 7.553 UNITS
[2016-10-01 20:58] LABS: VENOUS BASE EXCESS -1.1 (-2.0-2.0); VENOUS O2 SATURATION 92.5 % (60.0-80.0); VENOUS PARTIAL PRESSURE CO2 25.3 mmHg (38.0-50.0); VENOUS PARTIAL PRESSURE O2 57.5 mmHg (30.0-50.0); VENOUS STANDARD HCO3 23.4 MEQ/L; VENOUS TOTAL CO2 20.7 MEQ/L (24.0-28.0)
--- NOTE | 2016-10-01 21:20 | REPUSA ---
CLINICAL HISTORY: Abdominal pain. TECHNIQUE: Multiple axial, sagittal and coronal CT images were obtained through the abdomen and pelvi s after administration of intravenous contrast material. COMMENTS: The liver is of uniform attenuation without mass or defect. There is no intra or extrahepatic biliary ductal dilatation. The spleen is normal. The gallbladder is within normal limits. The pancreas is of normal contour and attenuation characteristics. There is no evidence of adrenal mass. Both kidneys demonstrate prompt and equal nephrograms. The kidneys are normal in size, shape and conf iguration. There is no evidence of renal or ureteral mass. No renal or ureteral calculi are identifie d. There is no hydroureter or hydronephrosis. Small hiatal hernia is noted. Large amount of fecal material seen throughout the colon compatible with severe constipation. The co fercho is distended measuring up to 8 cm in caliber. No evidence of fecal impaction. No evidence for appendicitis. There is no bowel wall thickening. No evidence for small or large rigo l obstruction. There is no evidence of abdominal ascites or lymphadenopathy. There is no evidence of intrinsic or extrinsic bladder mass. There is no pelvic ascites or lymphadeno kellie. Images of the lung bases show no evidence of pleural or parenchymal mass. There are no pleural effusi ons. The bony structures are free of lytic or blastic lesions. IMPRESSION: Large amount of fecal material seen throughout the colon compatible with severe constipation. The co fercho is distended measuring up to 8 cm in caliber. No evidence of fecal impaction. Thank you for your kind referral of this patient.
[2016-10-01] MEDS ORDERED: KETOROLAC 30 MG/ML VIAL (J1885) IV ONE (21:45)
[2016-10-01] MEDS ORDERED: HumuLIN R (REGULAR) INSULIN (NovoLIN R) **100U/ML** PER UNIT IV ONE (21:45)
[2016-10-01] MEDS: NS 1,000 ML IV SCH (22:07)
[2016-10-01] MEDS ORDERED: ONDANSETRON 4MG/2ML VIAL (J2405) IV PRN (22:15)
[2016-10-01] MEDS ORDERED: ACETAMINOPHEN TAB 650MG DOSE (2X325MG) PO PRN (22:15)
[2016-10-01] MEDS ORDERED: FLEET ENEMA PR PRN (22:15)
[2016-10-01] MEDS ORDERED: SODIUM CHLORIDE 0.9% 1000 ML IV ONE (22:15)
[2016-10-01] MEDS ORDERED: ATOR40TA PO (22:23)
[2016-10-01] MEDS ORDERED: hydrOXYzine 50 MG TAB PO PRN (22:30)
[2016-10-01] MEDS ORDERED: GLUCAGON FOR INJ 1 MG VIAL (J1610) SC PRN (22:30)
[2016-10-01] MEDS ORDERED: GLUCOSE 4 GM CHEW TABLET PO PRN (22:30)
[2016-10-01 22:31] LABS: AMYLASE 24 U/L (25-115)
[2016-10-01] MEDS ORDERED: MAGNESIUM CITRATE 300 ML BTL PO SCH (22:31)
--- NOTE | 2016-10-01 22:38 | HPEPDOC ---
General Date of Admission Chief Complaint The patient is a 45-year-old male Presented to the ER with complaints of not felling like himself History of Present Illness Patient is a 45 year old male with a PMHx of IDDM1, GERD, DLP, HTN, [place] (15 years ago, s/p cath, no stents), Depression / Bipolar Disorder (Type 1) who presented to the ER because he had complaints of nausea and vomiting. Patient noted that yesterday he wasnt feeling in his usual state of health, he than began to have nausea, vomiting and diarrhea. He reported several episodes of nausea, mostly dark brown liquid, no blood. His diarrhea was described as liquid green without blood or mucus. He advised that he had some abdominal pain at that point but very minimal. He then started to take Imodium for his diarrhea. He denied any fevers, but notes that he had chills. He noted that his diarrhea had subsided a little, but his abdominal pain worsened. He noted that he has been having abdominal pain on the lower sides of his abdomen. He describes the pain as a cramping pain, 6/10, non-radiating, minor relief with lying flat and aggravated with standing up. He denies any chest pain, shortness of breath, palpitations or urinary symptoms. Home Medications Scheduled Aripiprazole (Aripiprazole) 10 Mg Tab 10 MG PO DAILY (Reported) Aspirin (Aspirin) 325 Mg Tab 325 MG PO DAILY (Reported) Atorvastatin Calcium (Atorvastatin Calcium) 40 Mg Tab 40 MG PO DAILY (Reported ) Cholecalciferol (Vitamin D3) 3,000 Unit Tab 3,000 UNIT PO DAILY (Reported) Citalopram Hydrobromide (Citalopram Hydrobromide) 20 Mg Tab 40 MG PO DAILY ( Reported) Cyanocobalamin (Vitamin B12) 1,000 Mcg Tab 1,000 MCG PO DAILY (Reported) Insulin Aspart (Novolog Flexpen) 100 Unit/Ml Inj 1 DOSE SC AC (Reported) PER SLIDING SCALE Insulin Glargine (Lantus Solostar) 100 Unit/Ml Inj 46 UNITS SC DAILY (Reported ) Lamotrigine (Lamotrigine) 25 Mg Tab 50 MG PO DAILY (Reported) Losartan Potassium (Losartan Potassium) 25 Mg Tab 25 MG PO DAILY (Reported) Mirtazapine (Remeron) 15 Mg Tab 15 MG PO QHS (Reported) Multivitamins *[facility] STOCKED* (Thera M Plus *[facility] STOCKED*) 1 Tab Tab 1 TAB PO DAILY (Reported) Pantoprazole Sodium (Pantoprazole Sodium) 40 Mg Tab 40 MG PO DAILY (Reported) Vitamin D (Drisdol) 50,000 Unit Cap 50,000 UNIT PO QWEEK (Reported) FRIDAY Scheduled PRN Hydroxyzine HCl (Hydroxyzine HCl) 50 Mg Tab 50 MG PO Q4H PRN PRN ANXIETY ( Reported) Allergies Coded Allergies: Trazodone (Unverified Allergy, Unknown, 05/17/16) Zolpidem (Unverified Allergy, Unknown, "severe leg cramps", 06/13/16) Morphine (Verified Adverse Reaction, Mild, nausea,stomach ache, 05/17/16) Past Medical History Medical History IDDM1, GERD, DLP, HTN, [place] (15 years ago, s/p cath, no stents), Depression / Bipolar Disorder (Type 1) Surgical History Appendectomy 5 years ago Cardiac catheterization 15 years ago Gastric bypass 4 years ago Laser eye surgery Left leg tibia / fibula fracture s/p repair 3 years ago 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 Family History - Mother with hypertension - Father with heart problems and lung cancer Social History - Denies the use of illicit drugs; Smoker of 5 years at 0.5 ppd, Social alcohol use - Denies recent travel or sick contacts - Lives alone with dog and cat - Occupation; disability because of blindness Review of Symptoms Other systems Constitutional: Denies weight loss, change in appetite, or recent trauma Eyes: No visual changes or eye pain Ears, Nose, Throat: Denies nose bleeds, or difficulty swallowing Cardiovascular: Denies chest pain, sweating, or orthopnea Respiratory: Denies cough, wheezing, or shortness of breath GI: Steve nausea, vomiting, abdominal pain, diarrhea or constipation : Denies pain with urination or frequency Musculoskeletal: Denies joint pain or swelling Neuro / Psych: Denies muscle weakness or sensory loss Skin: No skin rashes noted All other review of systems negative; otherwise stated in history of present illness Vital Signs - Vitals: BP 147/86, HR 90, RR 24, Sat 98%RA, Temp 98.4F - General: Lying in bed, No acute distress, Speaking in full sentences, AAOx3 - HEENT: NC, AT, PERRLA, EOMI - CVS: RRR, +S1S2, - Murmurs / rubs / gallops - Lungs: Fair air entry bilaterally, Clear to auscultation, No wheezing / rales / rhonchi - Abdomen: Soft, Non-distended, Tenderness at L and RLQ, Hypoactive bowel sounds , No guarding / rigidity - Extremities: + PPx4, No lower extremity edema, No calf tenderness - Neuro: No focal motor or sensory deficit - Skin: No visible rashes Laboratory Data Labs 24H Laboratory Tests 2 10/01/16 18:33: Aspartate Amino Transf (AST/SGOT) 17, Alanine Aminotransferase (ALT/SGPT) 30, Alkaline Phosphatase 121H, Total Bilirubin 1.0, Direct Bilirubin 0.2, Albumin 3.6, Albumin/Globulin Ratio 1.06, Amylase Level 24L, Anion Gap 15, White Blood Count 4.4, Red Blood Count 5.34, Hemoglobin 16.0, Hematocrit 49.8, Mean Corpuscular Volume 93.2, Mean Corpuscular Hemoglobin 29.9, Mean Corpuscular Hemoglobin Concent 32.1, Red Cell Distribution Width 12.8, Platelet Count 249, Neutrophils (%) (Auto) 57.4, Lymphocytes (%) (Auto) 27.6, Monocytes (%) (Auto) 6.5H, Eosinophils (%) (Auto) 5.1H, Basophils (%) (Auto) 0.9, Neutrophils # (Auto ) 2.5, Lymphocytes # (Auto) 1.2L, Monocytes # (Auto) 0.3, Eosinophils # (Auto) 0.2, Basophils # (Auto) 0.0, Calcium Level 8.8, Glomerular Filtration Rate > 60.0, Lactic Acid (Sepsis) 1.8, Large Unclassified Cells # 0.1, Large Unclassified Cells % 2.5, Lipase 59L, Total Protein 7.0 10/01/16 19:08: Bedside Glucose (Misc Panel) 409H 10/01/16 19:53: Central Line Venous O2 Saturation 98.1, Urine Amorphous Sediment , Urine Appearance CLEAR, Urine Color STRAW, Urine pH 7.0, Urine Specific [place] 1.028 , Urine Protein 1+H, Urine Glucose (UA) 3+H, Urine Ketones 2+H, Urine Urobilinogen 0.2, Urine Bilirubin NEGATIVE, Urine Leukocyte Esterase NEGATIVE, Urine Bacteria (Auto) NEGATIVE, Urine Blood NEGATIVE, Urine Calcium Carbonate Cryst(Auto) , Urine Calcium Oxalate Cryst (Auto) , Urine Calcium Phosphate [place] (Auto) , Urine Cellular Casts , Urine Cystine Crystals , Urine Granular Casts ( Auto) , Urine Hyaline Casts (Auto) 0, Urine Leucine Crystals , Urine Mucus (Auto ) , Urine Nitrite NEGATIVE, Urine Oval Fat Bodies (Auto) , Urine RBC (Auto) 1, Urine Renal Epithelial Cells , Urine Sperm (Auto) , Urine Squamous Epithelial Cells 0, Urine Transitional Epithelial Cells , Urine Trichomonas (Auto) , Urine Triple Phosphate Cryst (Auto) , Urine Tyrosine Crystals , Urine Uric Acid Crystals (Auto) , Urine WBC (Auto) 0, Urine Waxy Casts (Auto) , Urine Yeast- Like Cells (Auto) 10/01/16 20:44: Blood Gas Bicarbonate Standard 23.4, Venous Blood Base Excess -1.1, Venous Blood pH 7.515H, Venous Blood Partial Pressure CO2 25.3L, Venous Blood Partial Pressure O2 57.5H, Venous Blood Total Carbon Dioxide 20.7L, Venous Blood HCO3 20.0L, Venous Blood Oxygen Saturation 92.5H 10/01/16 22:09: Bedside Glucose (Misc Panel) 373H CBC/BMP Laboratory Tests 10/01/16 18:33 Red Blood Count 5.34, Mean Corpuscular Volume 93.2, Mean Corpuscular Hemoglobin 29.9, Mean Corpuscular Hemoglobin Concent 32.1, Red Cell Distribution Width 12.8 , Neutrophils (%) (Auto) 57.4, Lymphocytes (%) (Auto) 27.6, Monocytes (%) (Auto ) 6.5 H, Eosinophils (%) (Auto) 5.1 H, Basophils (%) (Auto) 0.9, Neutrophils # ( Auto) 2.5, Lymphocytes # (Auto) 1.2 L, Monocytes # (Auto) 0.3, Eosinophils # ( Auto) 0.2, Basophils # (Auto) 0.0 Microbiology Microbiology 10/01/16 Urine Culture, Received Pending Plan / VTE VTE Prophylaxis Ordered?: Yes Plan Plan Abdominal pain with nausea, vomiting possibly 2/2 medication induced constipation - Presented with nausea and vomiting with diarrhea that progressed to constipation after Imodium - Physical reveals abdominal tenderness at the R and LLQ, no guarding / rigidity - CT abdomen 10/01: reveals large amount of fecal material seen throughout the colon compatible with severe constipation, colon distended up to 8 cm, no evidence of impaction - Will send stool for analysis - Will keep NPO for now - Will give enema and osmotic laxatives to induced bowel movement - Will discuss with surgery Recent history of diarrhea possibly 2/2 viral gastroenteritis, possibly post- obstructive diarrhea - will send for stool studies when bowel movement is induced Elevated creatinine from baseline - Possibly 2/2 fluid loss 2/2 vomiting and recent diarrhea - Will c/w IV fluid hydration Elevated glucose likely 2/2 poorly controlled IDDM1 - No evidence of anion gap acidosis, - Will check A1c - Will continue with home dose of long acting insulin - Will start insulin sliding scale - Will start IV fluid hydration Non-anion gap metabolic acidosis possibly 2/2 recent diarrhea - Will check urine anion gap - c/w IV fluid hydration DLP - c/w atorvastatin HTN - will c/w losartan with holding parameters WI (15 years ago, s/p cath, no stents) - c/w aspirin and atorvastatin Depression / Bipolar Disorder (Type 1) - c/w citalopram, hydroxyzine, lamotrigine GERD - Will change from PO to protonix IV DVT prophylaxis - Will start heparin MARQUITA MENDOZA MD Oct 01, 2016 22:38
[2016-10-02] VITALS (9 sets, daily range): BP systolic 117–147; BP diastolic 58–89
[2016-10-02] MEDS: NS 1,000 ML IV SCH (02:18)
[2016-10-02] MEDS ORDERED: DICYCLOMINE 10 MG CAP PO ONE (02:30)
[2016-10-02] MEDS: MIRTAZAPINE 15 MG TAB PO SCH ×2 (02:59→21:00)
[2016-10-02] MEDS ORDERED: GABAPENTIN 100 MG CAP PO PRN (05:00)
[2016-10-02] MEDS ORDERED: SINEMET 12.5MG/50MG PER 1/2 TABLET PO ONE (06:15)
[2016-10-02] MEDS ORDERED: MULTIVITAMIN -ADULT INJECTION 10 ML, THIAMINE INJection 100 MG, FOLIC ACID 1 MG in NS 1... IV ONE (06:15)
[2016-10-02] MEDS ORDERED: LORazepam 2 MG/ML VIAL (J2060) IV PRN (06:15)
[2016-10-02] MEDS ORDERED: SINEMET 25-100 MG TAB PO ONE (06:30)
[2016-10-02] MEDS: HEPARIN SOD (PORCINE) 5000 UNITS/ML VIAL SC SCH ×3 (06:31→21:10)
[2016-10-02] MEDS ORDERED: HumaLOG INSULIN (NovoLOG) PER UNIT SC SCH ×2 (07:30→21:00)
[2016-10-02 07:55] LABS: BASO % 0.5 % (0.0-1.0); EOS # 0.2 K/mm3 (0.0-0.50); LARGE UNSTAINED CELL # 0.1 K/mm3 (0.0-0.4); LARGE UNSTAINED CELL % 2.5 % (0.0-4.0); LYMPH # 1.1 K/mm3 (1.5-4.5); LYMPH % 32.3 % (24.0-44.0); MEAN CORPUSCULAR HEMOGLOBIN 30.1 pg (27.0-33.0); MEAN CORPUSCULAR HGB CONC 32.5 g/dl (32.0-36.5); MEAN CORPUSCULAR VOLUME 92.5 fl (80.0-96.0); MONO # 0.2 K/mm3 (0.0-0.8); MONO % 6.6 % (0.0-5.0); NEUTROPHILS # 1.8 K/mm3 (1.8-7.7); PLATELET COUNT, AUTOMATED 221 k/mm3 (150-450); RED CELL DISTRIBUTION WIDTH 12.7 % (11.5-14.5); WHITE BLOOD COUNT 3.5 K/mm3 (4.0-10.0)
[2016-10-02 08:05] LABS: ALBUMIN 2.8 GM/DL (3.2-5.2); ALBUMIN/GLOBULIN RATIO 0.97 (1.00-1.93); ALKALINE PHOSPHATASE 97 U/L (45-117); ALT/SGPT 22 U/L (12-78); AMYLASE 17 U/L (25-115); ANION GAP 13 MEQ/L (8-16); AST/SGOT 14 U/L (15-37); BILIRUBIN,TOTAL 0.7 MG/DL (0.2-1.0); BLOOD UREA NITROGEN 16 MG/DL (7-18); CALCIUM LEVEL 7.6 MG/DL (8.5-10.1); CARBON DIOXIDE LEVEL 21 MEQ/L (21-32); CHLORIDE LEVEL 108 MEQ/L (98-107); CREATININE FOR GFR 1.13 MG/DL (0.70-1.30); GLOMERULAR FILTRATION RATE > 60.0 (>60); GLUCOSE, FASTING 334 MG/DL (70-105); MAGNESIUM LEVEL 2.8 MG/DL (1.8-2.4); POTASSIUM SERUM 4.6 MEQ/L (3.5-5.1); SODIUM LEVEL 142 MEQ/L (136-145); TOTAL PROTEIN 5.7 GM/DL (6.4-8.2)
[2016-10-02] MEDS: PANTOPRAZOLE 40MG INJ (PROTONIX) (C9113) IV SCH (08:11)
[2016-10-02] MEDS: ATORVASTATIN 20 MG TAB PO SCH (08:12)
[2016-10-02] MEDS: CitaloPRAM (CeleXA) 20 MG TAB PO SCH (08:12)
[2016-10-02] MEDS: ASPIRIN 325 MG TAB PO SCH (08:12)
[2016-10-02] MEDS: VITAMIN D 1,000 INTERNATIONAL UNITS TABLET PO SCH (08:12)
[2016-10-02] MEDS: CYANOCOBALAMIN 500 MCG TAB PO SCH (08:12)
[2016-10-02] MEDS: lamoTRIgine 25 MG TAB PO SCH (08:12)
[2016-10-02] MEDS: LOSARTAN 25 MG TAB PO SCH (08:16)
[2016-10-02] MEDS: LEVEMIR (INSULIN DETEMIR) 1 UNITS/0.01ML SC SCH (08:18)
[2016-10-02] MEDS ORDERED: NS 1,000 ML IV ONE (10:15)
[2016-10-02] MEDS ORDERED: OXAZEPAM 10 MG CAP PO PRN (10:15)
[2016-10-02] MEDS ORDERED: HumaLOG INSULIN (NovoLOG) PER UNIT SC ONE (10:45)
[2016-10-02] MEDS ORDERED: GOLYTELY SOLN 4000 ML BTL PO ONE (11:00)
[2016-10-02] MEDS: HumaLOG INSULIN (NovoLOG) PER UNIT SC SCH ×2 (12:25→18:00)
[2016-10-02] MEDS: HYDROmorphone HCL 1 MG/ML SYRINGE (J1170) IV PRN ×2 (12:27→15:49)
[2016-10-02] MEDS: DEXTROSE 50% 50 ML SYRINGE IV PRN (15:00)
[2016-10-02] MEDS: D5W/0.9% SODIUM CHLORIDE 1,000 ML IV SCH ×2 (15:49→21:10)
[2016-10-02] MEDS ORDERED: LIDOCAINE 2% INJ 100 MG/5 ML SDV (FOR ANES.) As Ordered ONE (17:54)
[2016-10-02] MEDS ORDERED: PROPOFOL 200 MG/20 ML VIAL As Ordered ONE ×2 (17:54→18:11)
[2016-10-02] MEDS ORDERED: ePHEDrine SULFATE 25 MG/5 ML(5MG/ML) SYRINGE As Ordered ONE (18:01)
--- NOTE | 2016-10-02 21:38 | CR ---
DATE OF CONSULTATION: 10/02/2016 REASON FOR CONSULTATION: Abnormal CT scan with dilated colon. HISTORY OF PRESENT ILLNESS: The patient is a 45-year-old male presents to the ER with nausea, vomiting and diarrhea. On CT scan it was read as constipated with a dilated colon at 8 cm. Therefore, I was called to evaluate. The patient claims never had problems with bowel movements in the past. He has anywhere from one to three bowel movements a day that are formed. No problems with constipation or diarrhea. No blood in his stool. No changes in bowel habits. No family history of colon diseases or colon cancer. He does drink about a case a week. Denies any other drug abuse. Denies any fevers. Currently no nausea or vomiting. PAST MEDICAL HISTORY: Diabetes, gastroesophageal reflux disease, hypertension, previous myocardial infarction (DC), depression, bipolar. PAST SURGICAL HISTORY: Appendectomy, cardiac catheter 15 years ago, gastric bypass 4 years ago, laser eye surgery, left leg fracture repair. FAMILY HISTORY: Noncontributory. SOCIAL HISTORY: Smokes half-pack a day and drinks alcohol, about a case a week. Denies any drug abuse. REVIEW OF SYSTEMS: Pertinent positives and negatives stated in the HPI. PHYSICAL EXAMINATION: General: Alert and oriented times three. No acute distress. Vitals: Blood pressure 147/86, heart rate 90, respirations 24, temperature 98.4. HEENT: Pupils equal, round, react to light and accommodation. Heart: S1, S2 regular rate and rhythm. Lungs: Clear to auscultation bilaterally. Abdomen: Soft, nontender, nondistended. Bowel sounds positive. Extremities: No clubbing, cyanosis or edema. LABORATORY DATA: White count 3.5, hemoglobin 13.9, folate was 221, potassium 4.6, total bilirubin 0.7, lipase 60. IMAGING STUDIES: CT abdomen and pelvis shows large amount of fecal material seen throughout the colon compatible with severe constipation. Colon is distended measuring up to 8 cm in caliber. No evidence of fecal impaction. ASSESSMENT/PLAN: The patient is a 45-year-old male with nausea, vomiting, diarrhea and abnormally enlarged colon on CT. Recommendation at this time is to proceed with bowel prep and colonoscopy to rule out a distal obstruction. Risks and benefits of the procedure not limited to but including bleeding, infection, perforation were discussed in detail with the patient. Informed consent was obtained and the procedure was planned.
--- NOTE | 2016-10-02 21:44 | IPN ---
DATE: 10/02/2016 Mr. Rust is complaining of bilateral leg cramps this morning. They were sudden in onset. He does not usually have these at home. He wonders if it is related to need for insulin. Fingersticks associated with this are in the 120s. No chest pain. Not short of breath. Denies any exceptional amount of alcohol use. He says he drinks about 14 beers a week. Temperature is 98.4, pulse 92, respiratory rate 20, blood pressure 129/84, 100% on room air. Intake and output notable for a negative fluid balance of -1110. One bowel movement thus far today. He is awake, appropriately interactive. Initially quite uncomfortable but improved during the course of my exam. Mucous membranes moist. Neck supple. Breathing is symmetrical. Was initially tachypneic but resolved during the course of my evaluation. Heart is in a regular rate and rhythm. Abdomen soft, doughy, nontender, somewhat (cut off). Hemoglobin 13.9, platelets 221. BUN 16, creatinine 1.13, anion gap of 13. Urine and blood cultures are pending. I did review the abdomen and pelvic CT with the general surgeon. We were unable to visualize the fecal material. ASSESSMENT: This is a 45-year-old with abdominal pain, nausea, vomiting, diarrhea, and concern for possible distal colonic mass. PLAN: 1. Gastrointestinal (GI). Patient will have colonoscopy done today. I have discussed this case at bedside with Dr. Zapata, given the patient 2000 mL of GoLYTELY. 2. Patient has lower extremity cramping. Has been given intravenous (IV) fluid. There is no evidence of electrolyte abnormality. He has improved with Valium and pain management. Will continue to monitor him clinically. 3. I suspect that there is underlying alcohol use, somewhat larger than he has described, based on supporting information available to staff. Have made Serax available as needed. 4. Patient has insulin-dependent diabetes. Will need insulin during his stay. No evidence of widened anion gap currently. Hopefully we will be able to restart him on diet and home insulin soon. 5. Patient has coronary artery disease, status post catheterization without stents. 6. Patient has depression and bipolar. 7. Patient has gastroesophageal reflux disease (GERD). 8. Patient has appropriate deep vein thrombosis (DVT) prophylaxis.
[2016-10-03] MEDS: DEXTROSE 50% 50 ML SYRINGE IV PRN (01:33)
[2016-10-03] MEDS: HYDROmorphone HCL 1 MG/ML SYRINGE (J1170) IV PRN (02:56)
[2016-10-03 03:10] VITALS: BP 131/51
[2016-10-03] MEDS: HEPARIN SOD (PORCINE) 5000 UNITS/ML VIAL SC SCH ×2 (05:29→14:00)
[2016-10-03] MEDS: HumaLOG INSULIN (NovoLOG) PER UNIT SC SCH ×3 (05:34→13:15)
[2016-10-03 06:50] LABS: BASO % 0.6 % (0.0-1.0); EOS # 0.3 K/mm3 (0.0-0.50); EOS % 10.7 % (0.0-3.0); LARGE UNSTAINED CELL # 0.1 K/mm3 (0.0-0.4); LARGE UNSTAINED CELL % 3.4 % (0.0-4.0); LYMPH # 1.6 K/mm3 (1.5-4.5); LYMPH % 50.2 % (24.0-44.0); MEAN CORPUSCULAR HEMOGLOBIN 30.9 pg (27.0-33.0); MEAN CORPUSCULAR HGB CONC 34.1 g/dl (32.0-36.5); MEAN CORPUSCULAR VOLUME 90.6 fl (80.0-96.0); MONO # 0.2 K/mm3 (0.0-0.8); MONO % 5.1 % (0.0-5.0); NEUTROPHILS # 0.9 K/mm3 (1.8-7.7); NEUTROPHILS % 30.1 % (36.0-66.0); PLATELET COUNT, AUTOMATED 196 k/mm3 (150-450); RED CELL DISTRIBUTION WIDTH 12.9 % (11.5-14.5); WHITE BLOOD COUNT 3.1 K/mm3 (4.0-10.0)
[2016-10-03 07:00] VITALS: BP 143/80
[2016-10-03 07:07] LABS: ALBUMIN 2.4 GM/DL (3.2-5.2); ALBUMIN/GLOBULIN RATIO 0.89 (1.00-1.93); ALKALINE PHOSPHATASE 76 U/L (45-117); ALT/SGPT 19 U/L (12-78); ANION GAP 9 MEQ/L (8-16); AST/SGOT 18 U/L (15-37); BILIRUBIN,TOTAL 0.4 MG/DL (0.2-1.0); BLOOD UREA NITROGEN 9 MG/DL (7-18); CALCIUM LEVEL 7.4 MG/DL (8.5-10.1); CARBON DIOXIDE LEVEL 25 MEQ/L (21-32); CHLORIDE LEVEL 111 MEQ/L (98-107); CREATININE FOR GFR 0.71 MG/DL (0.70-1.30); GLOMERULAR FILTRATION RATE > 60.0 (>60); GLUCOSE, FASTING 155 MG/DL (70-105); POTASSIUM SERUM 3.8 MEQ/L (3.5-5.1); SODIUM LEVEL 145 MEQ/L (136-145); TOTAL PROTEIN 5.1 GM/DL (6.4-8.2)
[2016-10-03] MEDS: D5W/0.9% SODIUM CHLORIDE 1,000 ML IV SCH (07:32)
[2016-10-03 09:39] VITALS: BP 144/83
[2016-10-03] MEDS: ATORVASTATIN 20 MG TAB PO SCH (09:39)
[2016-10-03] MEDS: LOSARTAN 25 MG TAB PO SCH (09:39)
[2016-10-03] MEDS: PANTOPRAZOLE 40MG INJ (PROTONIX) (C9113) IV SCH (09:39)
[2016-10-03] MEDS: CitaloPRAM (CeleXA) 20 MG TAB PO SCH (09:39)
[2016-10-03] MEDS: lamoTRIgine 25 MG TAB PO SCH (09:40)
[2016-10-03] MEDS: CYANOCOBALAMIN 500 MCG TAB PO SCH (09:40)
[2016-10-03] MEDS: VITAMIN D 1,000 INTERNATIONAL UNITS TABLET PO SCH (09:40)
[2016-10-03] MEDS: ASPIRIN 325 MG TAB PO SCH (09:40)
[2016-10-03] MEDS: LEVEMIR (INSULIN DETEMIR) 1 UNITS/0.01ML SC SCH (09:41)
--- NOTE | 2016-10-03 09:48 | IPNPDOC ---
Text Note Date of Service The patient was seen on 10/03/16. VS,Fishbone, I+O VS, Fishbone, I+O Laboratory Tests 10/03/16 06:38 Calcium Level 7.4 L, Aspartate Amino Transf (AST/SGOT) 18, Alanine Aminotransferase (ALT/SGPT) 19, Alkaline Phosphatase 76, Total Bilirubin 0.4, Total Protein 5.1 L, Albumin 2.4 L, Red Blood Count 4.36, Mean Corpuscular Volume 90.6, Mean Corpuscular Hemoglobin 30.9, Mean Corpuscular Hemoglobin Concent 34.1, Red Cell Distribution Width 12.9, Neutrophils (%) (Auto) 30.1 L, Lymphocytes (%) (Auto) 50.2 H, Monocytes (%) (Auto) 5.1 H, Eosinophils (%) (Auto ) 10.7 H, Basophils (%) (Auto) 0.6, Neutrophils # (Auto) 0.9 L, Lymphocytes # ( Auto) 1.6, Monocytes # (Auto) 0.2, Eosinophils # (Auto) 0.3, Basophils # (Auto) 0.0 Vital Signs Date Time Temp Pulse Resp B/P Pulse Ox O2 Delivery O2 Flow Rate FiO2 10/03/16 09:39 144/83 10/03/16 07:00 99.4 71 19 97 Room Air I&O- Last 24 Hours up to 6 AM 10/03/16 05:59 Intake Total 2700 ml Output Total 1100 ml Balance 1600 ml ALFA SCALES OGME-1 Oct 03, 2016 09:48
--- NOTE | 2016-10-03 09:51 | IPNPDOC ---
Text Note Date of Service The patient was seen on 10/03/16. NOTE Subjective: 45 yo M was seen and examined at bedside. Admits to leg cramps overnight that were constant until medication given after midnight which seems to be valium according to order hx, which started settling the cramps down after half an hour. Otherwise, he is having BMs, is not having diarrhea nor constipation. Denies fevers, chills, nausea, vomiting, abdominal pain, chest pain, SOB. Objective: Vitals: T 99.4, P 71, RR 19, BP 143/80 (101), Pulse Ox: 97% room air. I's/O's: 2990/1400 mLs yesterday, +1590 mLs balance yesterday, BMs: 2 yesterday after colonoscopy. Wt: 82.2 kg. General: Stable and well appearing middle-aged male resting in bed. Cooperative and pleasant. Patient awake and oriented, verbal and able to answer questions appropriately. In no acute distress. HEENT: Normocephalic Atraumatic. Grossly normal hearing bilaterally. Sclera Nonicteric. No external nasal lesions. Endocrinology: No thyromegaly. Neck: Supple. No cervical LAD bilaterally. Heart: Regular rhythm, rate, normal S1-S2. No murmurs, rubs, clicks or gallops Respiratory: Lungs clear to auscultation bilaterally. No wheezes, rales or rhonchi. Abdomen: Soft, nontender, nondistended, +Bowel Sounds present. Extremities: No clubbing, cyanosis, edema. Without amputations/deformities. No pedal edema. Some tenderness to squeezing lower extremities bilaterally. MSK: Normal ROM. Vascular: +2 radial and dorsalis pedis pulses bilaterally. Psychiatric: No signs of depression or anxiety Laboratory data: Please see below. Most recent fasting glucose: 155 (H) POC glucose at 101 at 2:43 Anion Gap: 9 Bicarb Serum: 25 Imaging: No new imaging today. Assessment/Plan: 45 yo M with PMH significant for IDDM Type 1, HTN, [place] s/p catheter but no stents 15 years ago, Depression/Bipolar Disorder, is presenting for abdominal pain with nausea and vomiting. 1) Abdominal Pain, Nausea, and Vomiting with CT scan findings of Abnormally Enlarged Colon dilated 8 cm: Has had 2 BM yesterday. Does not seem to be truly constipated. No tenderness to palpation of abdomen today. Colonoscopy done by Dr. Zapata yesterday who had found an area of circumferential erythema, no tumor, and biopsy of area of erythema. Biopsy results and surgical report results pending. Will follow up once available. GI panel and stool occult blood were negative. Blood cx show NGTD x 24 hours. Urinalysis shows +2 protein, +3 glucose, +2 ketones. On 10/02, Random Urine Na was 54, Random Urine K was 20.5, and Serum Na was 142, Serum K was 4.6, with calculated FeNa score of 0.6% consistent with prerenal azotemia most likely secondary to dehydration. 2) 3) 4) 5) 6) 7) 8) 9) 10) Continue home medications. DVT ppx: continue lovenox. GI ppx: protonix. Immunizations as per protocol. VS,Fishbone, I+O VS, Fishbone, I+O Laboratory Tests 10/03/16 06:38 Calcium Level 7.4 L, Aspartate Amino Transf (AST/SGOT) 18, Alanine Aminotransferase (ALT/SGPT) 19, Alkaline Phosphatase 76, Total Bilirubin 0.4, Total Protein 5.1 L, Albumin 2.4 L, Red Blood Count 4.36, Mean Corpuscular Volume 90.6, Mean Corpuscular Hemoglobin 30.9, Mean Corpuscular Hemoglobin Concent 34.1, Red Cell Distribution Width 12.9, Neutrophils (%) (Auto) 30.1 L, Lymphocytes (%) (Auto) 50.2 H, Monocytes (%) (Auto) 5.1 H, Eosinophils (%) (Auto ) 10.7 H, Basophils (%) (Auto) 0.6, Neutrophils # (Auto) 0.9 L, Lymphocytes # ( Auto) 1.6, Monocytes # (Auto) 0.2, Eosinophils # (Auto) 0.3, Basophils # (Auto) 0.0 Vital Signs Date Time Temp Pulse Resp B/P Pulse Ox O2 Delivery O2 Flow Rate FiO2 10/03/16 09:39 144/83 10/03/16 07:00 99.4 71 19 97 Room Air I&O- Last 24 Hours up to 6 AM 10/03/16 06:00 Intake Total 3300 ml Output Total 1100 ml Balance 2200 ml ALFA SCALES-1 Oct 03, 2016 09:51 I&O- Last 24 Hours up to 6 AM 10/03/16 06:00 Intake Total 3300 ml Output Total 1100 ml Balance 2200 ml ALFA SCALES-1 Oct 03, 2016 09:51
--- NOTE | 2016-10-03 10:34 | RO ---
DATE OF PROCEDURE: 10/02/2016 PREOPERATIVE DIAGNOSIS: Abnormal CAT scan with dilated colon. POSTOPERATIVE DIAGNOSIS: same with narrowing and inflammation in the proximal rectum PROCEDURE: Colonoscopy. SURGEON: Fito Zapata DO JAVA PROGRAMMING PROFESSOR: COMPLICATIONS: None. ESTIMATED BLOOD LOSS: Minimal ANESTHESIA: Intravenous (IV) sedation. Postoperative findings is a superior rectal narrowing with edema and erythema. INDICATIONS FOR PROCEDURE: The patient is 45-year-old male who presents to the emergency room (ER) with complaints of nausea, vomiting, diarrhea, found have a very distended colon around 8 cm on CAT scan. No significant masses were identified. Recommendation was to proceed with colonoscopy to evaluate for possible distal lesion versus lesion versus stricture. Risks and benefits of the procedure not limited but including bleeding, infection, perforation were discussed in detail with the patient. Informed consent was obtained. Procedure was planned. DESCRIPTION OF PROCEDURE: The patient was brought back to operating room #3. After sufficient sedation, he was placed in lithotomy decubitus position. Next, time-out was done to confirm proper patient, proper procedure. Following that, a colonoscope was passed through the rectum through the entire length the colon to the cecum, passed to the level of the ascending colon. Passage was difficult due to poor prep as well as extremely tortuous and dilated colon. The patient was placed in different position as well as having pressure on the abdominal wall, however was unable to get the scope all way to the cecum. I was able to visualize it, however cannot get the scope all the way into it. The scope was then slowly withdrawn examining the entire colon wall. No obvious lesions were identified. However, at just about 10 cm in the rectum there was circumferential erythema and swelling. No significant narrowing, just narrower than the rest of colon, able to pass the scope through it. However, four biopsies were taken circumferentially at this area to evaluate. The scope was then withdrawn. The patient awakened from anesthesia and sent to postanesthesia care unit (PACU) in stable condition. CHERYL
--- NOTE | 2016-10-03 13:31 | DS.PDOC ---
Discharge Summary General Date of Admission Oct 02, 2016 at 14:42 Date of Discharge Discharge Summary PCP: Dr. Dio Trujillo Attending Physician: Dr. Jaun Thornton Consults: Dr. Fiot Zapata General Surgery Discharge diagnosis: Abdominal Pain Nausea Vomiting Diarrhea Dilated Colon [address] Scan of the Abdomen/Pelvis with IV Contrast Secondary diagnosis: Non-anion gap metabolic acidosis likely secondary to recent diarrhea Elevated glucose likely secondary to poorly controlled insulin-dependent diabetes mellitus type 1 Elevated creatinine from baseline likely secondary to diarrhea Insulin-dependent diabetes mellitus type 1 WA and coronary artery disease status post catheterization without stents Dyslipidemia Underlying EtOH use Lower extremity cramping Depression Bipolar disorder GERD Hospital course: This is a 45-year-old male who presented to the [facility] emergency department on 10/01/2016 and had date of admission on 10/02/2016. He presented for complaints of nausea, vomiting, diarrhea and abdominal pain the day before presentation. There were several episodes of emesis that were dark brown liquid with no blood. Diarrhea was green and liquid in consistency without mucus or blood. Patient admitted to abdominal pain that was very minimal at first and he was taking Imodium for diarrhea and his diarrhea had subsided a bit, but his abdominal pain had worsened. The abdominal pain that he began to have was located in the lower abdomen. The pain was described as cramping, nonradiating, 6 out of 10 in intensity, alleviated with lying flat, and exacerbated with standing up. Blood work was significant for an initial glucose (fasting) of 455 , hemoglobin A1c of 9.3, and alkaline phosphatase of 121, and ABG which showed a non-anion gap metabolic acidosis. A random urine sodium and creatinine were done which showed a FeNa of 0.6% which was consistent with prerenal etiology. Urinalysis was positive for 1+ protein, 3+ glucose, 2+ ketones on admission. Urine cultures were negative and did not show any growth. Blood cultures showed no growth to date for 24 hours. A GI tract panel, and stool occult blood were negative. A CT scan of the abdomen and pelvis with IV contrast had shown a large amount of fecal material seen throughout the colon compatible with severe constipation, an 8 cm distended/dilated colon with no evidence of compaction. Patient was given an enema and osmotic laxatives to induce a bowel movement. He had a total of 2 bowel movements during hospital stay. Dr. Zapata had been consult did and did a colonoscopy. During the colonoscopy, the area of circumferential erythema was seen without a tumor, and was biopsied. The GI pathology is pending. In addition, yesterday, the patient was hyperventilating and starting to have cramps in his legs for which he was given Valium and Dilaudid. He was treated with Ativan and serax for possible alcohol withdrawal. Since colonoscopy yesterday, patient has improved and is clinically and hemodynamically stable. Remained afebrile and there were no major complications during the hospital stay. Progress note on date of discharge: Subjective: 45 yo M was seen and examined at bedside. Admits to leg cramps overnight that were constant until medication given after midnight which seems to be valium according to order hx, which started settling the cramps down after half an hour. Otherwise, he is having BMs, is not having diarrhea nor constipation. Denies fevers, chills, nausea, vomiting, abdominal pain, chest pain, SOB. Objective: Vitals: T 99.4, P 71, RR 19, BP 143/80 (101), Pulse Ox: 97% room air. I's/O's: 2990/1400 mLs yesterday, +1590 mLs balance yesterday, BMs: 2 yesterday after colonoscopy. Wt: 82.2 kg. General: Stable and well appearing middle-aged male resting in bed. Cooperative and pleasant. Patient awake and oriented, verbal and able to answer questions appropriately. In no acute distress. HEENT: Normocephalic Atraumatic. Grossly normal hearing bilaterally. Sclera Nonicteric. No external nasal lesions. Endocrinology: No thyromegaly. Neck: Supple. No cervical LAD bilaterally. Heart: Regular rhythm, rate, normal S1-S2. No murmurs, rubs, clicks or gallops Respiratory: Lungs clear to auscultation bilaterally. No wheezes, rales or rhonchi. Abdomen: Soft, nontender, nondistended, +Bowel Sounds present. Extremities: No clubbing, cyanosis, edema. Without amputations/deformities. No pedal edema. Some tenderness to squeezing lower extremities bilaterally. MSK: Normal ROM. Vascular: +2 radial and dorsalis pedis pulses bilaterally. Psychiatric: No signs of depression or anxiety Laboratory data: Please see below. Most recent fasting glucose: 155 (H) POC glucose at 101 at 2:43 Anion Gap: 9 Bicarb Serum: 25 Imaging: No new imaging today. Labs: Please see below. Blood cx: No growth to date 24 hours. Urine cultures: No growth. Assessment: 45 yo M with PMH significant for IDDM Type 1, HTN, WA s/p catheter but no stents 15 years ago, Depression/Bipolar Disorder, is presenting for abdominal pain with nausea, vomiting, and diarrhea. Disposition/Plan: Abdominal Pain, Nausea, and Vomiting, and Diarrhea with CT scan findings of Abnormally Enlarged Colon dilated 8 cm: Has had 2 BM yesterday. Does not seem to be truly constipated. No tenderness to palpation of abdomen today. Colonoscopy done by Dr. Zapata yesterday who had found an area of circumferential erythema, no tumor, and biopsy of area of erythema. Biopsy results and surgical report results pending. Will follow up once available. GI panel and stool occult blood were negative. Blood cx show NGTD x 24 hours. Urinalysis shows +2 protein, +3 glucose, +2 ketones. On 10/02, Random Urine Na was 54, Random Urine K was 20.5, and Serum Na was 142, Serum K was 4.6, with calculated FeNa score of 0.6% consistent with prerenal etiology most likely secondary to dehydration. Discharge home today with Follow up with Dr. Zapata within [address] Trujillo within 7 days. Continue home medications. Follow-up: Recommended with Dr. Fito Zapata General Surgery within [address] Trujillo within 7 days. Activity: No restrictions and as tolerated. Diet: Carbohydrate Consistent Medications on discharge: Aripiprazole 10 mg by mouth daily Aspirin 325 mg by mouth daily Atorvastatin 40 mg by mouth daily Cholecalciferol vitamin D3 3000 units by mouth daily Citalopram 40 mg by mouth daily Cyanocobalamin 1000 g vitamin B12 by mouth daily Hydroxyzine 50 mg by mouth every 4 hours when necessary anxiety Insulin aspart 100 units per milliliter injection (NovoLog flex pen) 1 dose subcutaneous before meals per sliding scale Insulin glargine 100 units per milliliter injection (Lantus Solostar) 46 units subcutaneous daily Lamotrigine 50 mg by mouth daily Losartan 25 mg by mouth daily Mirtazapine 15 mg by mouth daily at bedtime Pantoprazole 40 mg by mouth daily Vitamin D 50,000 units by mouth every weekly Time spent on discharge: 35 minutes. Vital Signs/I&Os Vital Signs Date Time Temp Pulse Resp B/P Pulse Ox O2 Delivery O2 Flow Rate FiO2 10/03/16 09:39 144/83 10/03/16 07:00 99.4 71 19 97 Room Air I&O- Last 24 Hours up to 6 AM 10/03/16 06:00 Intake Total 3300 ml Output Total 1100 ml Balance 2200 ml Laboratory Data Labs 24H Laboratory Tests 2 10/02/16 15:29: Bedside Glucose (Misc Panel) 190H 10/02/16 18:41: Bedside Glucose (Misc Panel) 115H 10/03/16 01:19: Bedside Glucose (Misc Panel) 56L 10/03/16 02:43: Bedside Glucose (Misc Panel) 101 10/03/16 06:38: Blood Urea Nitrogen 9, Creatinine 0.71, Sodium Level 145, Potassium Level 3.8, Chloride Level 111H, Carbon Dioxide Level 25, Calcium Level 7.4L, Aspartate Amino Transf (AST/SGOT) 18, Alanine Aminotransferase (ALT/SGPT) 19, Alkaline Phosphatase 76, Total Bilirubin 0.4, Total Protein 5.1L, Albumin 2.4L, Albumin/ Globulin Ratio 0.89L, Anion Gap 9, White Blood Count 3.1L, Red Blood Count 4.36 , Hemoglobin 13.5L, Hematocrit 39.5L, Mean Corpuscular Volume 90.6, Mean Corpuscular Hemoglobin 30.9, Mean Corpuscular Hemoglobin Concent 34.1, Red Cell Distribution Width 12.9, Platelet Count 196, Neutrophils (%) (Auto) 30.1L, Lymphocytes (%) (Auto) 50.2H, Monocytes (%) (Auto) 5.1H, Eosinophils (%) (Auto) 10.7H, Basophils (%) (Auto) 0.6, Neutrophils # (Auto) 0.9L, Lymphocytes # (Auto ) 1.6, Monocytes # (Auto) 0.2, Eosinophils # (Auto) 0.3, Basophils # (Auto) 0.0 , Glomerular Filtration Rate > 60.0, Large Unclassified Cells # 0.1, Large Unclassified Cells % 3.4, Magnesium Level 2.0 CBC/BMP Laboratory Tests 10/03/16 06:38 Calcium Level 7.4 L, Aspartate Amino Transf (AST/SGOT) 18, Alanine Aminotransferase (ALT/SGPT) 19, Alkaline Phosphatase 76, Total Bilirubin 0.4, Total Protein 5.1 L, Albumin 2.4 L, Red Blood Count 4.36, Mean Corpuscular Volume 90.6, Mean Corpuscular Hemoglobin 30.9, Mean Corpuscular Hemoglobin Concent 34.1, Red Cell Distribution Width 12.9, Neutrophils (%) (Auto) 30.1 L, Lymphocytes (%) (Auto) 50.2 H, Monocytes (%) (Auto) 5.1 H, Eosinophils (%) (Auto ) 10.7 H, Basophils (%) (Auto) 0.6, Neutrophils # (Auto) 0.9 L, Lymphocytes # ( Auto) 1.6, Monocytes # (Auto) 0.2, Eosinophils # (Auto) 0.3, Basophils # (Auto) 0.0 FSBS Laboratory Tests Test 10/02/16 15:29 10/02/16 18:41 10/03/16 01:19 10/03/16 02:43 Range/Units Bedside Glucose (Misc Panel) 190 115 56 101 70-105 MG/DL Microbiology Microbiology 10/02/16 Blood Culture - Preliminary, Resulted No growth after 24 hours . All specim... 10/02/16 Gastrointestinal Tract Panel (PCR) - Final, Complete 10/02/16 Stool Occult Blood (WILLY) - Final, Complete 10/02/16 Urine Culture - Final, Complete 10/01/16 Urine Culture - Final, Complete Discharge Medications Scheduled Aripiprazole (Aripiprazole) 10 Mg Tab 10 MG PO DAILY (Reported) Aspirin (Aspirin) 325 Mg Tab 325 MG PO DAILY (Reported) Atorvastatin Calcium (Atorvastatin Calcium) 40 Mg Tab 40 MG PO DAILY (Reported ) Cholecalciferol (Vitamin D3) 3,000 Unit Tab 3,000 UNIT PO DAILY (Reported) Citalopram Hydrobromide (Citalopram Hydrobromide) 20 Mg Tab 40 MG PO DAILY ( Reported) Cyanocobalamin (Vitamin B12) 1,000 Mcg Tab 1,000 MCG PO DAILY (Reported) Insulin Aspart (Novolog Flexpen) 100 Unit/Ml Inj 1 DOSE SC AC (Reported) PER SLIDING SCALE Insulin Glargine (Lantus Solostar) 100 Unit/Ml Inj 46 UNITS SC DAILY (Reported ) Lamotrigine (Lamotrigine) 25 Mg Tab 50 MG PO DAILY (Reported) Losartan Potassium (Losartan Potassium) 25 Mg Tab 25 MG PO DAILY (Reported) Mirtazapine (Remeron) 15 Mg Tab 15 MG PO QHS (Reported) Pantoprazole Sodium (Pantoprazole Sodium) 40 Mg Tab 40 MG PO DAILY (Reported) Vitamin D (Drisdol) 50,000 Unit Cap 50,000 UNIT PO QWEEK (Reported) FRIDAY Scheduled PRN Hydroxyzine HCl (Hydroxyzine HCl) 50 Mg Tab 50 MG PO Q4H PRN PRN ANXIETY ( Reported) Allergies Coded Allergies: Trazodone (Unverified Allergy, Unknown, 05/17/16) Zolpidem (Unverified Allergy, Unknown, "severe leg cramps", 06/13/16) Morphine (Verified Adverse Reaction, Mild, nausea,stomach ache, 05/17/16) GME ATTESTATION GME ATTESTATION My preceptor for this patient encounter was Dr. Jaun Thornton, and was physically present in the building during the encounter and was fully available. As needed , all aspects of the patient interview, examination, medical decision making process, and medical care plan development were reviewed and approved by the preceptor. Preceptor is aware and concurs with the plan as stated in the body of this note and will attest to such by his/her cosignature. GME ATTESTATION GME ATTESTATION My preceptor for this patient encounter was Dr. Jaun Thornton, and was physically present in the building during the encounter and was fully available. As needed , all aspects of the patient interview, examination, medical decision making process, and medical care plan development were reviewed and approved by the preceptor. Preceptor is aware and concurs with the plan as stated in the body of this note and will attest to such by his/her cosignature. ALFA SCALES OGME-1 Oct 03, 2016 13:31
[2016-10-03 14:00] VITALS: BP 140/81
== END 2016-10-03 16:50 | disposition home or self-care (01) | DRG 392 ==
LOC: EDBD 18:15 → M ED 19:44 → M ED INP 22:07 → M MSPAV 10-02 01:44 → OBSVTOIN 10-02 14:42
PROVIDERS: ADMIT Internal Medicine; ATTEND Internal Medicine
PROC: 0DBP8ZX Excision of Rectum, Via Natural or Artificial Opening Endoscopic, Diagnostic (ICD-10-PCS; principal; 2016-10-02 10:07)
DX: R11.2 Nausea with vomiting, unspecified (principal); H33.21 Serous retinal detachment, right eye; E87.2 Acidosis; K59.39 Other megacolon; E11.65 Type 2 diabetes mellitus with hyperglycemia; K21.9 Gastro-esophageal reflux disease without esophagitis; R25.2 Cramp and spasm; H54.41 Blindness, right eye, normal vision left eye; E78.5 Hyperlipidemia, unspecified; I25.2 Old myocardial infarction; F31.9 Bipolar disorder, unspecified; Z98.84 Bariatric surgery status; A08.4 Viral intestinal infection, unspecified; F17.210 Nicotine dependence, cigarettes, uncomplicated; Z79.4 Long term (current) use of insulin; Z79.82 Long term (current) use of aspirin; Z79.899 Other long term (current) drug therapy; Z88.5 Allergy status to narcotic agent; Z88.8 Allergy status to other drugs, medicaments and biological substances

== ENCOUNTER 2016-10-07 11:13 | Inpatient (IN) | payer MEDICARE ==
[~2016-10-07] VITALS: Ht 177.8 cm; Wt 76.5 kg
[~2016-10-07 11:13] MED LIST changes: +ARIP1TAB PO; +HYDR-4274 PO; +REME15TA PO
[2016-10-07] MEDS ORDERED: DEXTROSE 50% 50 ML SYRINGE As Ordered ONE ×2 (11:41→12:00)
[2016-10-07] MEDS ORDERED: DEXTROSE 50% 50 ML VIAL IV STA (11:48)
[2016-10-07] MEDS ORDERED: DEXTROSE 50% 50 ML SYRINGE IV STA ×4 (12:01→14:02)
[2016-10-07 12:02] LABS: BASO % 0.7 % (0.0-1.0); EOS # 0.1 K/mm3 (0.0-0.50); EOS % 2.6 % (0.0-3.0); LARGE UNSTAINED CELL # 0.1 K/mm3 (0.0-0.4); LARGE UNSTAINED CELL % 1.7 % (0.0-4.0); LYMPH # 1.5 K/mm3 (1.5-4.5); LYMPH % 33.5 % (24.0-44.0); MEAN CORPUSCULAR HEMOGLOBIN 30.8 pg (27.0-33.0); MEAN CORPUSCULAR HGB CONC 34.6 g/dl (32.0-36.5); MEAN CORPUSCULAR VOLUME 89.1 fl (80.0-96.0); MONO # 0.3 K/mm3 (0.0-0.8); MONO % 6.5 % (0.0-5.0); NEUTROPHILS # 2.4 K/mm3 (1.8-7.7); NEUTROPHILS % 55.1 % (36.0-66.0); PLATELET COUNT, AUTOMATED 310 k/mm3 (150-450); RED CELL DISTRIBUTION WIDTH 12.9 % (11.5-14.5); WHITE BLOOD COUNT 4.3 K/mm3 (4.0-10.0)
[2016-10-07] MEDS: NS 1,000 ML IV SCH ×3 (12:15→13:33)
[2016-10-07 12:16] LABS: ALBUMIN 3.5 GM/DL (3.2-5.2); ALBUMIN/GLOBULIN RATIO 1.06 (1.00-1.93); ALKALINE PHOSPHATASE 112 U/L (45-117); ALT/SGPT 41 U/L (12-78); ANION GAP 9 MEQ/L (8-16); AST/SGOT 55 U/L (15-37); BILIRUBIN,DIRECT 0.1 MG/DL (0.0-0.2); BILIRUBIN,TOTAL 0.4 MG/DL (0.2-1.0); BLOOD UREA NITROGEN 10 MG/DL (7-18); CALCIUM LEVEL 8.7 MG/DL (8.5-10.1); CARBON DIOXIDE LEVEL 27 MEQ/L (21-32); CHLORIDE LEVEL 112 MEQ/L (98-107); CREATININE FOR GFR 0.92 MG/DL (0.70-1.30); GLOMERULAR FILTRATION RATE > 60.0 (>60); POTASSIUM SERUM 3.6 MEQ/L (3.5-5.1); SODIUM LEVEL 148 MEQ/L (136-145); TOTAL PROTEIN 6.8 GM/DL (6.4-8.2)
[2016-10-07 12:23] LABS: GLUCOSE, FASTING 30 MG/DL (70-105)
[2016-10-07 12:50] LABS: ABG BASE EXCESS 0.9 (-2.0-2.0); ABG HCO3 22.7 MEQ/L (22.0-26.0); ABG PARTIAL PRESSURE O2 106.2 mmHg (75.0-100.0); ABG STANDARD HCO3 25.2 MEQ/L (22.0-26.0); ABG TOTAL CO2 23.6 MEQ/L (22.0-29.0); ABG pH (ARTERIAL) 7.512 UNITS (7.350-7.450)
[2016-10-07] MEDS ORDERED: D5W/0.45% SODIUM CHLORIDE 1,000 ML IV SCH (13:00)
[2016-10-07] MEDS ORDERED: ISOVUE-370 76% 100ML VIAL (Q9967) As Ordered ONE (13:05)
--- NOTE | 2016-10-07 13:17 | REP ---
CHEST, SINGLE VIEW: COMPARISON: 08/18/2016. There is no evidence of acute infiltrate. No pleural effusion is seen. The heart is normal in size. The mediastinal silhouette is unremarkable. The visualized osseous structures are intact. IMPRESSION: No acute pulmonary disease. Signed by Fito Clements MD 10/07/2016 04:14 P
--- NOTE | 2016-10-07 13:35 | REP ---
Clinical: Abdominal pain. Technique: Axial contrast enhanced images from the lung bases to the pubic symphysis using 100 ml Isovue 370 intravenous contrast material with coronal and sagittal re-formations. Comparison: 10/01/2016. Findings: Moderate fecal stasis and constipation is appreciated. There is evidence for prior gastric bypass surgery. There is no evidence for bowel obstruction or obvious acute inflammatory process. Liver, spleen, pancreas, gallbladder, bilateral adrenal glands and kidneys are normal. Pelvis demonstrates normal bladder and age appropriate prostate/seminal vesicles. No ascites. No free air. No intraperitoneal or retroperitoneal adenopathy. Abdominal aorta and vasculature is normal. Surrounding musculoskeletal structures demonstrate age-related changes. Lung bases demonstrate chronic changes. Impression: 1. Moderate fecal stasis and constipation without evidence for bowel obstruction, perforation or acute inflammatory process. 2. No further acute intra-abdominal or pelvic pathology appreciated. Signed by Kashmir Schmid MD 10/07/2016 01:26 P
[2016-10-07] MEDS ORDERED: GLUCOSE 4 GM CHEW TABLET PO PRN (14:45)
[2016-10-07] MEDS ORDERED: BISACODYL 10 MG SUPP PR PRN (14:45)
[2016-10-07] MEDS ORDERED: GLUCAGON FOR INJ 1 MG VIAL (J1610) SC PRN (14:45)
[2016-10-07] MEDS ORDERED: DEXTROSE 50% 50 ML SYRINGE IV PRN (14:45)
[2016-10-07] MEDS ORDERED: hydrOXYzine 50 MG TAB PO PRN (14:45)
[2016-10-07] MEDS ORDERED: ONDANSETRON 4MG/2ML VIAL (J2405) IV PRN (14:45)
[2016-10-07] MEDS ORDERED: ACETAMINOPHEN TAB 650MG DOSE (2X325MG) PO PRN (14:45)
[2016-10-07 15:23] VITALS: BP 144/84
--- NOTE | 2016-10-07 15:35 | HPE ---
DATE OF ADMISSION: 10/07/2016 PRIMARY CARE PROVIDER: Dr. Allen CHIEF COMPLAINT: Nausea and vomiting, abdominal pain. HISTORY OF PRESENT ILLNESS: This is a 45-year-old male patient with underlying medical history of type 1 insulin dependent diabetes, gastroesophageal reflux disease (GERD), dyslipidemia, hypertension, myocardial infarction 15 years ago with catheterization with no stent, depression, bipolar disorder type 1, and also recently admitted for small bowel obstruction, was discharged on 10/03/2016, but since discharge the patient has been reporting leg cramping and arm cramping, worse when lying down, relieved with pressure that is progressively worsening and also earlier today the patient had one episode of nausea and vomiting, nonbloody and nonbilious and has not had a bowel movement for 3 days. The patient presented to the emergency room and was found to be hypoglycemic and with periods of unresponsiveness. Fingersticks down to 20, given a total of 6 amps of D50 and placed on D5 fluids. CT scan of the abdomen has also been done, therefore the hospitalist service was called to admit the patient for hypoglycemia. The patient denies using extra insulin. Has a history of depression, but denies any suicidality. Last took insulin earlier this morning. Has not had breakfast or lunch. The patient stated that his glucose has been very labile and he has had episodes of hypoglycemia before. Currently, the patient is constipated. Denies any nausea or vomiting. Only reporting periumbilical pain that is about 3 out of 10. Nonradiating. Denies any chest pain, pressure or discomfort. Denies any focal weakness or visual change. Denies any fevers or chills or sick contacts. Allergies. The patient reported adverse reaction to morphine, trazodone and Ambien. PAST MEDICAL HISTORY: 1. Type 1 diabetes. 2. Gastroesophageal reflux disease (GERD). 3. Dyslipidemia. 4. Hypertension. 5. Coronary arterial disease with myocardial infarction 15 years ago. 6. Depression, bipolar type 1. PAST SURGICAL HISTORY: 1. Appendectomy. 2. Cardiac catheterization 15 years ago. 3. Gastric bypass 4 years ago. 4. Laser eye surgery. 5. Left tibial/fibular fracture with repair 2 years ago. 6. Right eye retinal detachment surgery. FAMILY HISTORY: Mother with hypertension. Father with heart disease and lung cancer. SOCIAL HISTORY: The patient smokes one pack per day for the past 5 years. Drinking socially, about four or five beers three times a week. Denies any recent travel or sick contacts. Lives alone. Has a dog and cat. Occupation: Disabled because of blindness. REVIEW OF SYSTEMS: 11-point review of systems negative except for those mentioned in history of present illness. HOME MEDICATIONS: - aripiprazole 10 mg by mouth daily - aspirin 325 mg by mouth daily - atorvastatin 40 mg by mouth daily - vitamin D3 3000 units by mouth daily - citalopram 40 mg by mouth daily - vitamin B12 1000 mcg by mouth daily - hydroxyzine 50 mg by mouth every 4 hours as needed - mealtime insulin, NovoLog, before meals - Lantus 46 units subcutaneously daily - lamotrigine 50 mg by mouth daily - losartan 25 mg by mouth daily - Remeron 15 mg by mouth at night - Protonix 40 mg by mouth daily - vitamin D 50,000 units by mouth weekly on Friday PHYSICAL EXAMINATION: VITAL SIGNS: Temperature 99.3, pulse 88, respirations 20, blood pressure 122/71, pulse oximetry 98% on room air. GENERAL: Patient is alert and oriented times three. No acute distress. HEENT: Normocephalic, atraumatic. PULMONARY: Bilaterally clear to auscultation. CARDIAC: Regular rate and rhythm. Normal S1, S2. ABDOMEN: Surgical scar, well healed and old. Only mild periumbilical tenderness. No rebound. No guarding. Hypoactive bowel sounds. EXTREMITIES: No edema in bilateral lower extremities. EKG shows sinus rhythm at 77. T wave inversion in V1. LABORATORY DATA: WBC 4.3, hemoglobin and hematocrit 15.5/45, platelets 310. Chemistry: Sodium 148, potassium 3.6, chloride 112, bicarbonate 27, BUN 10, creatinine 0.9, glucose 30, lactic acid 3.1. Cardiac enzymes negative times one. CT scan of the abdomen shows moderate cholestasis, constipation without evidence of bowel obstruction, perforation or acute inflammatory process. ASSESSMENT AND PLAN: This is a 45-year-old male patient with underlying medical history of type 1 diabetes, gastroesophageal reflux disease (GERD), dyslipidemia, hypertension, myocardial infarction 15 years ago with coronary arterial disease, depression, bipolar type 1, history of gastric bypass, recently admitted for small bowel obstruction, now presented with hypoglycemia, nausea, vomiting, abdominal pain. 1. Hypoglycemia, possibly secondary to long-acting insulin and not tolerating oral. The patient was given 6 amps of D50 in the emergency room and was on D5 fluids running at 200, currently is on KCL 20 mEq D5 half normal running at 200. Followup fingersticks every 1 hour. Requires intensive care unit (ICU) monitoring. Additional glucose as needed. Clear liquid diet for now. Tomorrow, we will decrease the Levemir. Followup A1/c. Followup hypoglycemia workup. Followup electrolytes. Basic metabolic panel and magnesium every 4 hours to supplement electrolytes aggressively. Advance diet as tolerated. 2. Nausea, vomiting, abdominal pain. CT scan shows constipation. No evidence of small bowel obstruction. Clear liquid diet for now. Bowel regimen as prescribed. We will followup. We will consult surgery if the patient does not improve. Currently, CT scan does not show any evidence of obstruction, the patient does not have any significant abdominal exam either. 3. Coronary arterial disease. Continue aspirin and statin. Blood pressure medication with losartan. Monitor on telemetry. Followup cardiac enzymes. EKG is appreciated. 4. Type 1 diabetes. Refer to above for plans. Holding mealtime insulin given the patient was hypoglycemic. We will start long-acting insulin tomorrow at reduced dose. In the meantime, continue D5 and adjust glucose input as tolerated. Advance diet as tolerated. Followup fingersticks. Followup A1/c. Followup hypoglycemic workup. 5. Depression, bipolar type 1. Continue home medications. 6. Dyslipidemia . Continue home medications. 7. Hypertension. Continue home medications. 8. Gastroesophageal reflux disease (GERD). Continue proton pump inhibitor. 9. Deep vein thrombosis (DVT) prophylaxis. Heparin subcutaneously. DISPOSITION: Pending clinical improvement. We will monitor in intensive care unit (ICU) overnight.
[2016-10-07 16:20] VITALS: BP 144/79
[2016-10-07] MEDS: KCL 20MEQ IN D5/0.45NS 1000ML 1,000 ML IV SCH ×2 (16:23→21:34)
[2016-10-07] MEDS: HEPARIN SOD (PORCINE) 5000 UNITS/ML VIAL SC SCH ×2 (16:24→21:35)
[2016-10-07] MEDS: VITAMIN D 1,000 INTERNATIONAL UNITS TABLET PO SCH (16:27)
--- NOTE | 2016-10-07 18:27 | ECGEPIP ---
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
[2016-10-07 18:49] LABS: ANION GAP 8 MEQ/L (8-16); BLOOD UREA NITROGEN 8 MG/DL (7-18); CALCIUM LEVEL 7.9 MG/DL (8.5-10.1); CARBON DIOXIDE LEVEL 27 MEQ/L (21-32); CHLORIDE LEVEL 112 MEQ/L (98-107); GLOMERULAR FILTRATION RATE > 60.0 (>60); GLUCOSE, FASTING 122 MG/DL (70-105); MAGNESIUM LEVEL 2.2 MG/DL (1.8-2.4); POTASSIUM SERUM 3.8 MEQ/L (3.5-5.1); SODIUM LEVEL 147 MEQ/L (136-145)
[2016-10-07 19:30] VITALS: BP 125/78
[2016-10-07] MEDS: MIRALAX *UNIT DOSE* 17GM PACKET PO SCH (21:34)
[2016-10-07] MEDS: MIRTAZAPINE 15 MG TAB PO SCH (21:34)
[2016-10-07] MEDS: SENOKOT S TAB PO SCH (21:35)
[2016-10-07 22:00] VITALS: BP 133/77
[2016-10-07 22:07] LABS: ANION GAP 7 MEQ/L (8-16); BLOOD UREA NITROGEN 7 MG/DL (7-18); CARBON DIOXIDE LEVEL 26 MEQ/L (21-32); CHLORIDE LEVEL 112 MEQ/L (98-107); GLOMERULAR FILTRATION RATE > 60.0 (>60); GLUCOSE, FASTING 98 MG/DL (70-105); MAGNESIUM LEVEL 2.1 MG/DL (1.8-2.4); POTASSIUM SERUM 3.6 MEQ/L (3.5-5.1); SODIUM LEVEL 145 MEQ/L (136-145)
[2016-10-07] MEDS ORDERED: KETOROLAC 30 MG/ML VIAL (J1885) IV ONE (23:30)
[2016-10-08] VITALS: BP 126/90
[2016-10-08 02:32] LABS: ANION GAP 5 MEQ/L (8-16); BLOOD UREA NITROGEN 7 MG/DL (7-18); CALCIUM LEVEL 7.5 MG/DL (8.5-10.1); CARBON DIOXIDE LEVEL 27 MEQ/L (21-32); CHLORIDE LEVEL 114 MEQ/L (98-107); CREATININE FOR GFR 0.72 MG/DL (0.70-1.30); GLOMERULAR FILTRATION RATE > 60.0 (>60); GLUCOSE, FASTING 91 MG/DL (70-105); POTASSIUM SERUM 3.7 MEQ/L (3.5-5.1); SODIUM LEVEL 146 MEQ/L (136-145)
[2016-10-08] MEDS: KCL 20MEQ IN D5/0.45NS 1000ML 1,000 ML IV SCH ×3 (03:27→10:45)
[2016-10-08 04:00] VITALS: BP 137/86
[2016-10-08 05:04] LABS: MEAN CORPUSCULAR HEMOGLOBIN 31.2 pg (27.0-33.0); MEAN CORPUSCULAR HGB CONC 34.4 g/dl (32.0-36.5); MEAN CORPUSCULAR VOLUME 90.7 fl (80.0-96.0); RED CELL DISTRIBUTION WIDTH 12.8 % (11.5-14.5); WHITE BLOOD COUNT 3.4 K/mm3 (4.0-10.0)
[2016-10-08 05:24] LABS: ALBUMIN 2.6 GM/DL (3.2-5.2); ALBUMIN/GLOBULIN RATIO 1.04 (1.00-1.93); ALKALINE PHOSPHATASE 85 U/L (45-117); ALT/SGPT 30 U/L (12-78); ANION GAP 6 MEQ/L (8-16); AST/SGOT 32 U/L (15-37); BILIRUBIN,TOTAL 0.6 MG/DL (0.2-1.0); BLOOD UREA NITROGEN 7 MG/DL (7-18); CALCIUM LEVEL 7.5 MG/DL (8.5-10.1); CARBON DIOXIDE LEVEL 28 MEQ/L (21-32); CHLORIDE LEVEL 111 MEQ/L (98-107); CREATININE FOR GFR 0.83 MG/DL (0.70-1.30); GLOMERULAR FILTRATION RATE > 60.0 (>60); GLUCOSE, FASTING 120 MG/DL (70-105); MAGNESIUM LEVEL 2.1 MG/DL (1.8-2.4); POTASSIUM SERUM 4.1 MEQ/L (3.5-5.1); SODIUM LEVEL 145 MEQ/L (136-145); TOTAL PROTEIN 5.1 GM/DL (6.4-8.2)
[2016-10-08] MEDS: HEPARIN SOD (PORCINE) 5000 UNITS/ML VIAL SC SCH ×3 (06:58→21:45)
--- NOTE | 2016-10-08 07:45 | IPNPDOC ---
Subjective Date Seen The patient was seen on 10/08/16. Subjective Chief Complaint/HPI The patient is a 45-year-old male admitted with a reason for visit of Abdominal Pain; Hypoglycemia. General: Denies: Chills, Fatigue, Malaise, Night Sweats, Normal Appetite, Other Symptoms, ROS Unobtainable Constitutional: Denies: Chills, Fatigue, Fever, Lethargy, Malaise, Night Sweats , Other, Weakness, Weight Loss Eyes: Denies: Conjunctivae inflammation, Eyelid inflammation, Other, Pain, Redness, Vision change ENT: Denies: Dysphagia, Ear Pain, Epistaxis, Head Aches, Other Symptoms, Post Nasal Drip, Sinus Congestion, Sore Throat Skin: Denies: Breakdown, Bruising, Dry, Itching, Jaundice, Lesions, Nail Changes, Other, Rash Pulmonary: Denies: Cough, Dyspnea, Other Symptoms, Pleuritic Chest Pain Cardiovascular: Denies: Chest Pain, Edema, Lt Headedness, Orthopnea, Other Symptoms, Palpitations, Paroxysmal Noc. Dyspnea Gastrointestinal: Reports: Abdominal Pain, Constipation, Denies: Diarrhea, Hematochezia, Melena, Nausea, Other Symptoms, Vomiting Genitourinary: Denies: Dysuria, Frequency, Hematuria, Incontinence, Other Symptoms, Retention Objective Physical Examination General Exam: Positive: Alert, Cooperative, No Acute Distress Eye Exam: Positive: Conjunctiva & lids normal, EOMI, PERRLA, Negative: Sclera icteric ENT Exam: Positive: Atraumatic Neck Exam: Positive: Supple Chest Exam: Positive: Clear to auscultation, Normal air movement Heart Exam: Positive: Rate Normal Telemetry: Positive: No significant arrhythmia Abdomen Exam: Positive: Normal bowel sounds, Soft, Tenderness Psych Exam: Positive: Oriented x 3 Assessment /Plan Problems (1) Hypoglycemia Status: Acute Response to Treatment: Improving Discussed With: Patient Problem Specific Plan: Repeat Labs (2) Diabetes Status: Chronic Discussed With: Patient Problem Specific Plan: Monitor Clinically, Repeat Labs (3) Abdominal pain Status: Acute Response to Treatment: Improving Discussed With: Patient Problem Specific Plan: Monitor Clinically (4) CAD (coronary artery disease) Status: Chronic (5) HLD (hyperlipidemia) Status: Chronic Problem Text: Continue Lipitor. (6) GERD (gastroesophageal reflux disease) Status: Chronic (7) Bipolar 1 disorder Status: Chronic Plan/VTE VTE Prophylaxis Ordered?: Yes (Heparin SC) Plan Diet: Advance Activity: Continue Current Diagnostics: Repeat Labs in AM Anticipated Discharge: Home, Home With Services VS, I&O, 24H, [facility] Vital Signs/I&O Vital Signs Date Time Temp Pulse Resp B/P Pulse Ox O2 Delivery O2 Flow Rate FiO2 10/08/16 04:00 98.2 74 19 137/86 97 Room Air I&O- Last 24 Hours up to 6 AM 10/08/16 06:00 Intake Total 3700 ml Output Total 2375 ml Balance 1325 ml Laboratory Data 24H LABS Laboratory Tests 2 10/07/16 11:34: Bedside Glucose (Misc Panel) 35*L 10/07/16 11:43: Aspartate Amino Transf (AST/SGOT) 55H, Alanine Aminotransferase (ALT/SGPT) 41, Alkaline Phosphatase 112, Total Bilirubin 0.4, Direct Bilirubin 0.1, Albumin 3.5 , Albumin/Globulin Ratio 1.06, Anion Gap 9, White Blood Count 4.3, Red Blood Count 5.05, Hemoglobin 15.5, Hematocrit 45.0, Mean Corpuscular Volume 89.1, Mean Corpuscular Hemoglobin 30.8, Mean Corpuscular Hemoglobin Concent 34.6, Red Cell Distribution Width 12.9, Platelet Count 310, Neutrophils (%) (Auto) 55.1, Lymphocytes (%) (Auto) 33.5, Monocytes (%) (Auto) 6.5H, Eosinophils (%) (Auto) 2.6, Basophils (%) (Auto) 0.7, Neutrophils # (Auto) 2.4, Lymphocytes # (Auto) 1.5, Monocytes # (Auto) 0.3, Eosinophils # (Auto) 0.1, Basophils # (Auto) 0.0, Calcium Level 8.7, Glomerular Filtration Rate > 60.0, Large Unclassified Cells # 0.1, Large Unclassified Cells % 1.7, Lipase 64L, Total Protein 6.8 10/07/16 11:58: Bedside Glucose (Misc Panel) 99 10/07/16 12:11: Bedside Glucose (Misc Panel) 155H 10/07/16 12:39: Creatine Kinase MB 2.7, Creatine Kinase MB Relative Index 1.78, Lactic Acid ( Sepsis) 2.1*H, Total Creatine Kinase 151, Troponin I < 0.02 10/07/16 12:40: Arterial Blood pH 7.512H, Arterial Blood Partial Pressure CO2 29.0L, Arterial Blood Partial Pressure O2 106.2H, Arterial Blood Total CO2 23.6, Arterial Blood HCO3 22.7, Arterial Blood Base Excess 0.9, Arterial Blood Oxygen Saturation 97.6 , Blood Gas Bicarbonate Standard 25.2 10/07/16 12:54: Bedside Glucose (Misc Panel) 23*L 10/07/16 13:03: Bedside Glucose (Misc Panel) 228H 10/07/16 13:21: Bedside Glucose (Misc Panel) 188H 10/07/16 14:01: Bedside Glucose (Misc Panel) 65L 10/07/16 15:19: Bedside Glucose (Misc Panel) 79 10/07/16 16:16: Bedside Glucose (Misc Panel) 76 10/07/16 17:26: Bedside Glucose (Misc Panel) 137H 10/07/16 17:59: Anion Gap 8, Blood Urea Nitrogen 8, Creatinine 0.80, Sodium Level 147H, Potassium Level 3.8, Chloride Level 112H, Carbon Dioxide Level 27, Calcium Level 7.9L, Total Creatine Kinase 127, Creatine Kinase MB 2.2, Creatine Kinase MB Relative Index 1.73, Estimated Mean Plasma Glucose 203H, Glomerular Filtration Rate > 60.0, Hemoglobin A1c 8.7H, Lactic Acid Level 2.2*H, Magnesium Level 2.2, Troponin I < 0.02 10/07/16 18:11: Bedside Glucose (Misc Panel) 150H 10/07/16 19:20: Bedside Glucose (Misc Panel) 152H 10/07/16 20:16: Bedside Glucose (Misc Panel) 141H 10/07/16 21:31: Bedside Glucose (Misc Panel) 106H 10/07/16 21:43: Anion Gap 7L, Blood Urea Nitrogen 7, Creatinine 0.80, Sodium Level 145, Potassium Level 3.6, Chloride Level 112H, Carbon Dioxide Level 26, Calcium Level 8.0L, Glomerular Filtration Rate > 60.0, Magnesium Level 2.1 10/07/16 23:00: Bedside Glucose (Misc Panel) 106H 10/07/16 23:52: Bedside Glucose (Misc Panel) 95 10/08/16 01:13: Bedside Glucose (Misc Panel) 81 10/08/16 01:53: Anion Gap 5L, Blood Urea Nitrogen 7, Creatinine 0.72, Sodium Level 146H, Potassium Level 3.7, Chloride Level 114H, Carbon Dioxide Level 27, Calcium Level 7.5L, Glomerular Filtration Rate > 60.0, Magnesium Level 2.0 10/08/16 03:25: Bedside Glucose (Misc Panel) 101 10/08/16 04:18: Bedside Glucose (Misc Panel) 100 10/08/16 04:56: Blood Urea Nitrogen 7, Creatinine 0.83, Sodium Level 145, Potassium Level 4.1, Chloride Level 111H, Carbon Dioxide Level 28, Calcium Level 7.5L, Aspartate Amino Transf (AST/SGOT) 32, Alanine Aminotransferase (ALT/SGPT) 30, Alkaline Phosphatase 85, Total Bilirubin 0.6, Total Protein 5.1#L, Albumin 2.6#L, Albumin /Globulin Ratio 1.04, Anion Gap 6L, Glomerular Filtration Rate > 60.0, Lactic Acid Level 1.5, Magnesium Level 2.1 10/08/16 06:05: Bedside Glucose (Misc Panel) 125H CBC/BMP Laboratory Tests 10/07/16 11:43 Red Blood Count 5.05, Mean Corpuscular Volume 89.1, Mean Corpuscular Hemoglobin 30.8, Mean Corpuscular Hemoglobin Concent 34.6, Red Cell Distribution Width 12.9 , Neutrophils (%) (Auto) 55.1, Lymphocytes (%) (Auto) 33.5, Monocytes (%) (Auto ) 6.5 H, Eosinophils (%) (Auto) 2.6, Basophils (%) (Auto) 0.7, Neutrophils # ( Auto) 2.4, Lymphocytes # (Auto) 1.5, Monocytes # (Auto) 0.3, Eosinophils # (Auto ) 0.1, Basophils # (Auto) 0.0 10/07/16 17:59 Calcium Level 7.9 L, Total Creatine Kinase 127 10/07/16 21:43 Calcium Level 8.0 L 10/08/16 01:53 Calcium Level 7.5 L 10/08/16 04:56 Calcium Level 7.5 L, Aspartate Amino Transf (AST/SGOT) 32, Alanine Aminotransferase (ALT/SGPT) 30, Alkaline Phosphatase 85, Total Bilirubin 0.6, Total Protein 5.1 #L, Albumin 2.6 #L, Red Blood Count 4.03 L, Mean Corpuscular Volume 90.7, Mean Corpuscular Hemoglobin 31.2, Mean Corpuscular Hemoglobin Concent 34.4, Red Cell Distribution Width 12.8 SREE CURRY MD Oct 08, 2016 06:32
[2016-10-08 08:00] VITALS: BP 131/74
[2016-10-08] MEDS ORDERED: LEVEMIR (INSULIN DETEMIR) 1 UNITS/0.01ML SC SCH ×2 (09:00)
[2016-10-08] MEDS: MIRALAX *UNIT DOSE* 17GM PACKET PO SCH ×2 (09:03→21:44)
[2016-10-08] MEDS: ASPIRIN 325 MG TAB PO SCH (09:04)
[2016-10-08] MEDS: SENOKOT S TAB PO SCH ×2 (09:05→21:44)
[2016-10-08] MEDS: lamoTRIgine 25 MG TAB PO SCH (09:05)
[2016-10-08] MEDS: VITAMIN D 1,000 INTERNATIONAL UNITS TABLET PO SCH (09:05)
[2016-10-08] MEDS: PANTOPRAZOLE 40MG TAB (PROTONIX) PO SCH (09:05)
[2016-10-08] MEDS: CYANOCOBALAMIN 500 MCG TAB PO SCH (09:05)
[2016-10-08] MEDS: LOSARTAN 25 MG TAB PO SCH (09:06)
[2016-10-08] MEDS: ATORVASTATIN 20 MG TAB PO SCH (09:06)
[2016-10-08 10:45] LABS: ANION GAP 5 MEQ/L (8-16); BLOOD UREA NITROGEN 6 MG/DL (7-18); CALCIUM LEVEL 8.1 MG/DL (8.5-10.1); CARBON DIOXIDE LEVEL 26 MEQ/L (21-32); CHLORIDE LEVEL 109 MEQ/L (98-107); GLOMERULAR FILTRATION RATE > 60.0 (>60); GLUCOSE, FASTING 323 MG/DL (70-105); SODIUM LEVEL 140 MEQ/L (136-145)
[2016-10-08 10:52] LABS: POTASSIUM SERUM 5.3 MEQ/L (3.5-5.1)
[2016-10-08 12:10] VITALS: BP 143/76
[2016-10-08] MEDS: CitaloPRAM (CeleXA) 20 MG TAB PO SCH (12:34)
[2016-10-08] MEDS: LEVEMIR (INSULIN DETEMIR) 1 UNITS/0.01ML SC SCH (13:32)
[2016-10-08] MEDS: HumaLOG INSULIN (NovoLOG) PER UNIT SC SCH ×3 (13:33→21:00)
[2016-10-08 16:00] VITALS: BP 140/77
[2016-10-08 18:41] LABS: ANION GAP 7 MEQ/L (8-16); BLOOD UREA NITROGEN 12 MG/DL (7-18); CALCIUM LEVEL 8.2 MG/DL (8.5-10.1); CARBON DIOXIDE LEVEL 25 MEQ/L (21-32); CHLORIDE LEVEL 111 MEQ/L (98-107); CREATININE FOR GFR 0.82 MG/DL (0.70-1.30); GLOMERULAR FILTRATION RATE > 60.0 (>60); GLUCOSE, FASTING 86 MG/DL (70-105); MAGNESIUM LEVEL 2.2 MG/DL (1.8-2.4); POTASSIUM SERUM 4.5 MEQ/L (3.5-5.1); SODIUM LEVEL 143 MEQ/L (136-145)
[2016-10-08 20:00] VITALS: BP 138/82
[2016-10-08] MEDS: MIRTAZAPINE 15 MG TAB PO SCH (21:44)
--- NOTE | 2016-10-08 22:16 | ECGEPIP ---
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
[2016-10-09] VITALS: BP 146/86
[2016-10-09 04:00] VITALS: BP 139/81
[2016-10-09 05:07] LABS: MEAN CORPUSCULAR HEMOGLOBIN 31.1 pg (27.0-33.0); MEAN CORPUSCULAR HGB CONC 34.4 g/dl (32.0-36.5); MEAN CORPUSCULAR VOLUME 90.4 fl (80.0-96.0); RED CELL DISTRIBUTION WIDTH 12.8 % (11.5-14.5); WHITE BLOOD COUNT 3.7 K/mm3 (4.0-10.0)
[2016-10-09 05:34] LABS: ALBUMIN 2.8 GM/DL (3.2-5.2); ALBUMIN/GLOBULIN RATIO 1.04 (1.00-1.93); ALKALINE PHOSPHATASE 89 U/L (45-117); ALT/SGPT 34 U/L (12-78); ANION GAP 7 MEQ/L (8-16); AST/SGOT 33 U/L (15-37); BILIRUBIN,TOTAL 0.4 MG/DL (0.2-1.0); BLOOD UREA NITROGEN 13 MG/DL (7-18); CARBON DIOXIDE LEVEL 27 MEQ/L (21-32); CHLORIDE LEVEL 110 MEQ/L (98-107); CREATININE FOR GFR 0.74 MG/DL (0.70-1.30); GLOMERULAR FILTRATION RATE > 60.0 (>60); GLUCOSE, FASTING 120 MG/DL (70-105); MAGNESIUM LEVEL 1.9 MG/DL (1.8-2.4); POTASSIUM SERUM 3.9 MEQ/L (3.5-5.1); SODIUM LEVEL 144 MEQ/L (136-145); TOTAL PROTEIN 5.5 GM/DL (6.4-8.2)
[2016-10-09] MEDS: HEPARIN SOD (PORCINE) 5000 UNITS/ML VIAL SC SCH ×3 (06:19→21:03)
--- NOTE | 2016-10-09 07:30 | IPNPDOC ---
Subjective Date Seen The patient was seen on 10/09/16. Subjective Chief Complaint/HPI The patient is a 45-year-old male admitted with a reason for visit of Abdominal Pain; Hypoglycemia. General: Denies: Chills, Fatigue, Malaise, Night Sweats, Normal Appetite, Other Symptoms, ROS Unobtainable Constitutional: Denies: Chills, Fatigue, Fever, Lethargy, Malaise, Night Sweats , Other, Weakness, Weight Loss Eyes: Denies: Conjunctivae inflammation, Eyelid inflammation, Other, Pain, Redness, Vision change ENT: Denies: Dysphagia, Ear Pain, Epistaxis, Head Aches, Other Symptoms, Post Nasal Drip, Sinus Congestion, Sore Throat Skin: Denies: Breakdown, Bruising, Dry, Itching, Jaundice, Lesions, Nail Changes, Other, Rash Pulmonary: Denies: Cough, Dyspnea, Other Symptoms, Pleuritic Chest Pain Cardiovascular: Denies: Chest Pain, Edema, Lt Headedness, Orthopnea, Other Symptoms, Palpitations, Paroxysmal Noc. Dyspnea Gastrointestinal: Denies: Abdominal Pain, Constipation, Diarrhea, Hematochezia , Melena, Nausea, Other Symptoms, Vomiting Genitourinary: Denies: Dysuria, Frequency, Hematuria, Incontinence, Other Symptoms, Retention Endocrine: Denies: Cold Intolerance, Heat Intolerance, Other Endocrine Sx, Polydipsia, Polyphagia, Polyuria Objective Physical Examination General Exam: Positive: Alert, Cooperative, No Acute Distress Eye Exam: Positive: Conjunctiva & lids normal, EOMI, PERRLA, Negative: Sclera icteric ENT Exam: Positive: Atraumatic, Mucous membr. moist/pink Neck Exam: Positive: Supple Chest Exam: Positive: Clear to auscultation, Normal air movement Heart Exam: Positive: Rate Normal Telemetry: Positive: No significant arrhythmia Abdomen Exam: Positive: Normal bowel sounds, Soft, Negative: Tenderness Extremity Exam: Negative: Edema Neuro Exam: Positive: Strength at 5/5 X4 ext Psych Exam: Positive: Mental status NL, Oriented x 3 Assessment /Plan Problems (1) Hypoglycemia Status: Resolved Response to Treatment: Improving Discussed With: Patient Problem Specific Plan: Repeat Labs Problem Text: Optimizing insulin regimen. (2) Diabetes Status: Chronic Discussed With: Patient Problem Specific Plan: Monitor Clinically, Repeat Labs Problem Text: Labs pending. Continue with optimizing insulin regimen. (3) Abdominal pain Status: Resolved Discussed With: Patient Problem Specific Plan: Monitor Clinically Problem Text: Appears to have been secondary to constipation. (4) CAD (coronary artery disease) Status: Chronic Discussed With: Patient Problem Specific Plan: Monitor Clinically (5) HLD (hyperlipidemia) Status: Chronic Discussed With: Patient Problem Text: Continue Lipitor. (6) GERD (gastroesophageal reflux disease) Status: Chronic Discussed With: Patient Problem Specific Plan: Monitor Clinically (7) Bipolar 1 disorder Status: Chronic Discussed With: Patient Plan/VTE VTE Prophylaxis Ordered?: Yes (Heparin SC) Plan Diet: Continue Current Activity: Continue Current Diagnostics: Repeat Labs in AM Anticipated Discharge: Home, Home With Services Continue with insulin optimization. Hypoglycemia labs pending. Disposition Transfer to med/surg floor. Anticipate discharge in 24 hours. VS, I&O, 24H, [facility] Vital Signs/I&O Vital Signs Date Time Temp Pulse Resp B/P Pulse Ox O2 Delivery O2 Flow Rate FiO2 10/09/16 04:00 98.3 69 18 139/81 97 Room Air I&O- Last 24 Hours up to 6 AM 10/09/16 06:00 Intake Total 3100 ml Output Total 1900 ml Balance 1200 ml Laboratory Data 24H LABS Laboratory Tests 2 10/08/16 07:55: Bedside Glucose (Misc Panel) 204H 10/08/16 09:15: Bedside Glucose (Misc Panel) 240H 10/08/16 10:16: Anion Gap 5L, Blood Urea Nitrogen 6L, Creatinine 0.90, Sodium Level 140, Potassium Level 5.3H, Chloride Level 109H, Carbon Dioxide Level 26, Calcium Level 8.1L, Glomerular Filtration Rate > 60.0, Magnesium Level 2.0 10/08/16 12:11: Bedside Glucose (Misc Panel) 466H 10/08/16 17:21: Bedside Glucose (Misc Panel) 104 10/08/16 17:55: Anion Gap 7L, Blood Urea Nitrogen 12#, Creatinine 0.82, Sodium Level 143, Potassium Level 4.5, Chloride Level 111H, Carbon Dioxide Level 25, Calcium Level 8.2L, Glomerular Filtration Rate > 60.0, Magnesium Level 2.2 10/08/16 21:35: Bedside Glucose (Misc Panel) 92 10/09/16 04:44: Anion Gap 7L, Blood Urea Nitrogen 13, Creatinine 0.74, Sodium Level 144, Potassium Level 3.9, Chloride Level 110H, Carbon Dioxide Level 27, Calcium Level 8.0L, Glomerular Filtration Rate > 60.0, Magnesium Level 1.9, Aspartate Amino Transf (AST/SGOT) 33, Alanine Aminotransferase (ALT/SGPT) 34, Alkaline Phosphatase 89, Total Bilirubin 0.4, Total Protein 5.5L, Albumin 2.8L, Albumin/ Globulin Ratio 1.04 CBC/BMP Laboratory Tests 10/08/16 10:16 Calcium Level 8.1 L 10/08/16 17:55 Calcium Level 8.2 L 10/09/16 04:44 Calcium Level 8.0 L, Aspartate Amino Transf (AST/SGOT) 33, Alanine Aminotransferase (ALT/SGPT) 34, Alkaline Phosphatase 89, Total Bilirubin 0.4, Total Protein 5.5 L, Albumin 2.8 L, Red Blood Count 4.52, Mean Corpuscular Volume 90.4, Mean Corpuscular Hemoglobin 31.1, Mean Corpuscular Hemoglobin Concent 34.4, Red Cell Distribution Width 12.8 SREE CURRY MD Oct 09, 2016 07:30
[2016-10-09 07:31] VITALS: BP 138/81
[2016-10-09] MEDS: HumaLOG INSULIN (NovoLOG) PER UNIT SC SCH ×4 (07:45→21:03)
[2016-10-09] MEDS: PANTOPRAZOLE 40MG TAB (PROTONIX) PO SCH (08:58)
[2016-10-09] MEDS: SENOKOT S TAB PO SCH ×2 (08:58→21:03)
[2016-10-09] MEDS: MIRALAX *UNIT DOSE* 17GM PACKET PO SCH ×2 (08:58→21:03)
[2016-10-09] MEDS: VITAMIN D 1,000 INTERNATIONAL UNITS TABLET PO SCH (08:59)
[2016-10-09] MEDS: ATORVASTATIN 20 MG TAB PO SCH (08:59)
[2016-10-09] MEDS: CitaloPRAM (CeleXA) 20 MG TAB PO SCH (08:59)
[2016-10-09] MEDS: CYANOCOBALAMIN 500 MCG TAB PO SCH (08:59)
[2016-10-09] MEDS: lamoTRIgine 25 MG TAB PO SCH (08:59)
[2016-10-09] MEDS: ASPIRIN 325 MG TAB PO SCH (08:59)
[2016-10-09] MEDS: LOSARTAN 25 MG TAB PO SCH (09:00)
[2016-10-09] MEDS: LEVEMIR (INSULIN DETEMIR) 1 UNITS/0.01ML SC SCH (09:00)
[2016-10-09 12:00] VITALS: BP 125/76
[2016-10-09 13:30] VITALS: BP 141/80
[2016-10-09] MEDS: MIRTAZAPINE 15 MG TAB PO SCH (21:03)
[2016-10-09 22:00] VITALS: BP 113/57
[2016-10-10] MEDS: HEPARIN SOD (PORCINE) 5000 UNITS/ML VIAL SC SCH (05:19)
[2016-10-10 06:00] VITALS: BP 141/79
[2016-10-10 07:10] LABS: MEAN CORPUSCULAR HEMOGLOBIN 30.5 pg (27.0-33.0); MEAN CORPUSCULAR HGB CONC 33.4 g/dl (32.0-36.5); MEAN CORPUSCULAR VOLUME 91.1 fl (80.0-96.0); RED CELL DISTRIBUTION WIDTH 12.6 % (11.5-14.5); WHITE BLOOD COUNT 3.1 K/mm3 (4.0-10.0)
[2016-10-10 07:32] LABS: ALBUMIN 2.9 GM/DL (3.2-5.2); ALBUMIN/GLOBULIN RATIO 0.94 (1.00-1.93); ALKALINE PHOSPHATASE 98 U/L (45-117); ALT/SGPT 32 U/L (12-78); ANION GAP 9 MEQ/L (8-16); AST/SGOT 23 U/L (15-37); BILIRUBIN,TOTAL 0.6 MG/DL (0.2-1.0); BLOOD UREA NITROGEN 15 MG/DL (7-18); CALCIUM LEVEL 8.3 MG/DL (8.5-10.1); CARBON DIOXIDE LEVEL 26 MEQ/L (21-32); CHLORIDE LEVEL 105 MEQ/L (98-107); CREATININE FOR GFR 0.78 MG/DL (0.70-1.30); GLOMERULAR FILTRATION RATE > 60.0 (>60); GLUCOSE, FASTING 323 MG/DL (70-105); POTASSIUM SERUM 4.2 MEQ/L (3.5-5.1); SODIUM LEVEL 140 MEQ/L (136-145)
[2016-10-10] MEDS: HumaLOG INSULIN (NovoLOG) PER UNIT SC SCH (08:07)
[2016-10-10 08:08] VITALS: BP 131/74
[2016-10-10] MEDS: CitaloPRAM (CeleXA) 20 MG TAB PO SCH (08:08)
[2016-10-10] MEDS: SENOKOT S TAB PO SCH (08:08)
[2016-10-10] MEDS: VITAMIN D 1,000 INTERNATIONAL UNITS TABLET PO SCH (08:08)
[2016-10-10] MEDS: MIRALAX *UNIT DOSE* 17GM PACKET PO SCH (08:08)
[2016-10-10] MEDS: PANTOPRAZOLE 40MG TAB (PROTONIX) PO SCH (08:08)
[2016-10-10] MEDS: ASPIRIN 325 MG TAB PO SCH (08:08)
[2016-10-10] MEDS: CYANOCOBALAMIN 500 MCG TAB PO SCH (08:08)
[2016-10-10] MEDS: LOSARTAN 25 MG TAB PO SCH (08:08)
[2016-10-10] MEDS: ATORVASTATIN 20 MG TAB PO SCH (08:09)
[2016-10-10] MEDS: lamoTRIgine 25 MG TAB PO SCH (08:09)
[2016-10-10] MEDS: LEVEMIR (INSULIN DETEMIR) 1 UNITS/0.01ML SC SCH (08:09)
[2016-10-10] MEDS ORDERED: LANTINJ4 SC (08:26)
--- NOTE | 2016-10-10 08:33 | DS.PDOC ---
Discharge Summary General Date of Admission Oct 07, 2016 at 14:35 Date of Discharge 10/10/16 Primary Care Physician: Jr Allen Collins Discharge Summary PROCEDURES PERFORMED DURING STAY: None ADMITTING DIAGNOSES: 1. Hypoglycemia 2. IDDM type 1 3. GERD 4. Dyslipidemia 5. HTN 6. Hx of AR 7. Depression 8. Bipolar disorder type 1 COMPLICATIONS/CHIEF COMPLAINT: Abdominal Pain; Hypoglycemia. HISTORY OF PRESENT ILLNESS: 45-year old male presented for 1day history of leg and arm cramping, nausea, non-bilious non-bloody vomit. Found to be hypoglycemic in ER with intermittent episodes of unresponsiveness. HOSPITAL COURSE: Patient admitted for hypoglycemia. Responded well to glucose supplementation via IV fluids and oral. Insulin regimen adjusted, decreased basal insulin. Abdominal pain secondary to constipation, resolved with bowel movement. Case was discussed with general surgery with no further intervention. Patient's diet advanced and tolerated. Hospital stay otherwise unremarkable. Patient discharged in stable condition with instructions as indicated. DISCHARGE MEDICATIONS: Please see below. ALLERGIES: Please see below. PHYSICAL EXAMINATION ON DISCHARGE: VITAL SIGNS: Please see below. GENERAL: NAD HEENT: NC/AT, EOMI, PERRL NECK: supple CARDIOVASCULAR EXAMINATION: +S1S2, RRR RESPIRATORY EXAMINATION: CTA B/L ABDOMINAL EXAMINATION: soft, NT, +BS EXTREMITIES: no edema SKIN: no rashes NEUROLOGICAL EXAMINATION: no gross focal deficits PSYCHIATRIC EXAMINATION: AAOx3 LABORATORY DATA: Please see below. IMAGING: CT Abd/Pelvis Impression: 1. Moderate fecal stasis and constipation without evidence for bowel obstruction, perforation or acute inflammatory process. 2. No further acute intra-abdominal or pelvic pathology appreciated. ACTIVITY: As tolerated. DIET: Carb consistent, 2 gram sodium. DISCHARGE PLAN: Discharge home. DISCHARGE INSTRUCTIONS: 1. Follow up PCP Dr. Allen in 1-5 days 2. Medications as directed. DISCHARGE CONDITION: Stable. TIME SPENT ON DISCHARGE: Greater than 30 minutes. Vital Signs/I&Os Vital Signs Date Time Temp Pulse Resp B/P Pulse Ox O2 Delivery O2 Flow Rate FiO2 10/10/16 08:08 131/74 10/10/16 06:00 98.9 79 17 98 Room Air I&O- Last 24 Hours up to 6 AM 10/10/16 06:00 Intake Total 600 ml Output Total 0 ml Balance 600 ml Laboratory Data Labs 24H Laboratory Tests 2 10/09/16 11:18: Bedside Glucose (Misc Panel) 239H 10/09/16 16:50: Bedside Glucose (Misc Panel) 126H 10/10/16 06:30: Blood Urea Nitrogen 15, Creatinine 0.78, Sodium Level 140, Potassium Level 4.2, Chloride Level 105, Carbon Dioxide Level 26, Calcium Level 8.3L, Aspartate Amino Transf (AST/SGOT) 23, Alanine Aminotransferase (ALT/SGPT) 32, Alkaline Phosphatase 98, Total Bilirubin 0.6, Total Protein 6.0L, Albumin 2.9L, Albumin/ Globulin Ratio 0.94L, Anion Gap 9, Glomerular Filtration Rate > 60.0, Magnesium Level 2.0 CBC/BMP Laboratory Tests 10/10/16 06:30 Calcium Level 8.3 L, Aspartate Amino Transf (AST/SGOT) 23, Alanine Aminotransferase (ALT/SGPT) 32, Alkaline Phosphatase 98, Total Bilirubin 0.6, Total Protein 6.0 L, Albumin 2.9 L, Red Blood Count 4.74, Mean Corpuscular Volume 91.1, Mean Corpuscular Hemoglobin 30.5, Mean Corpuscular Hemoglobin Concent 33.4, Red Cell Distribution Width 12.6 FSBS Laboratory Tests Test 10/09/16 11:18 10/09/16 16:50 Range/Units Bedside Glucose (Misc Panel) 239 126 70-105 MG/DL Discharge Medications Scheduled Aripiprazole (Aripiprazole) 10 Mg Tab 10 MG PO DAILY (Reported) Aspirin (Aspirin) 325 Mg Tab 325 MG PO DAILY (Reported) Atorvastatin Calcium (Atorvastatin Calcium) 40 Mg Tab 40 MG PO DAILY (Reported ) Cholecalciferol (Vitamin D3) 3,000 Unit Tab 3,000 UNIT PO DAILY (Reported) Citalopram Hydrobromide (Citalopram Hydrobromide) 20 Mg Tab 40 MG PO DAILY ( Reported) Cyanocobalamin (Vitamin B12) 1,000 Mcg Tab 1,000 MCG PO DAILY (Reported) Insulin Aspart (Novolog Flexpen) 100 Unit/Ml Inj 1 DOSE SC AC (Reported) PER SLIDING SCALE Insulin Glargine (Lantus Solostar) 100 Unit/Ml Inj 20 UNITS SC DAILY Lamotrigine (Lamotrigine) 25 Mg Tab 50 MG PO DAILY (Reported) Losartan Potassium (Losartan Potassium) 25 Mg Tab 25 MG PO DAILY (Reported) Mirtazapine (Remeron) 15 Mg Tab 15 MG PO QHS (Reported) Pantoprazole Sodium (Pantoprazole Sodium) 40 Mg Tab 40 MG PO DAILY (Reported) Vitamin D (Drisdol) 50,000 Unit Cap 50,000 UNIT PO QWEEK (Reported) FRIDAY Scheduled PRN Hydroxyzine HCl (Hydroxyzine HCl) 50 Mg Tab 50 MG PO Q4H PRN PRN ANXIETY ( Reported) Allergies Coded Allergies: Trazodone (Unverified Allergy, Unknown, 05/17/16) Zolpidem (Unverified Allergy, Unknown, "severe leg cramps", 06/13/16) Morphine (Verified Adverse Reaction, Mild, nausea,stomach ache, 05/17/16) SREE CURRY MD Oct 10, 2016 08:33
== END 2016-10-10 09:59 | disposition home or self-care (01) | DRG 639 ==
LOC: M ED 12:17 → M ED INP 14:35 → M ICU 16:08 → M MSPAV 10-09 13:25
PROVIDERS: ADMIT Hospitalist; ATTEND Internal Medicine
DX: E10.649 Type 1 diabetes mellitus with hypoglycemia without coma (principal); K21.9 Gastro-esophageal reflux disease without esophagitis; E78.5 Hyperlipidemia, unspecified; I10 Essential (primary) hypertension; I25.10 Atherosclerotic heart disease of native coronary artery without angina pectoris; I25.2 Old myocardial infarction; K59.00 Constipation, unspecified; F31.9 Bipolar disorder, unspecified; Z98.84 Bariatric surgery status; F17.210 Nicotine dependence, cigarettes, uncomplicated; Z79.82 Long term (current) use of aspirin; Z79.4 Long term (current) use of insulin; Z79.899 Other long term (current) drug therapy

== ENCOUNTER 2016-10-28 17:06 | Emergency (ER) | payer MEDICARE ==
[~2016-10-28] VITALS: Ht 177.8 cm; Wt 81.6 kg
[2016-10-28] MEDS ORDERED: REQU1TAB16 PO ×2 (17:17→19:18)
[2016-10-28] MEDS ORDERED: ABIL1TAB5 PO (18:19)
[2016-10-28] MEDS ORDERED: CITA20TA4 PO (18:20)
[2016-10-28] MEDS ORDERED: HYDR-4274 PO (18:22)
[2016-10-28] MEDS ORDERED: LAMI25TA PO (18:25)
[2016-10-28 19:37] VITALS: BP 124/77
== END 2016-10-28 19:39 | disposition home or self-care (01) ==
LOC: M ED 18:14
DX: Z76.0 Encounter for issue of repeat prescription (principal); Z79.899 Other long term (current) drug therapy; Z88.5 Allergy status to narcotic agent; Z88.8 Allergy status to other drugs, medicaments and biological substances

== ENCOUNTER 2017-01-14 01:17 | Emergency (ER) | payer MEDICARE ==
[~2017-01-14] VITALS: Ht 177.8 cm; Wt 81.0 kg
[~2017-01-14 01:17] MED LIST changes: +ABIL10TA9 PO; -ABIL1TAB5 PO; -ATOR40TA PO; +ATOR40TA75 PO; -AUGM875T27 PO; +AUGM875T28 PO; -HYDR-4274 PO; +HYDR50TA70 PO; +KEFL500C17 PO; -KEFL500C7 PO; +LAMI25TA PO; -LEVA750T PO; +LEVA750T7 PO; +LUNE3TAB36 PO; -LUNE3TAB48 PO; +REQU1TAB16 PO
[2017-01-14] MEDS ORDERED: LUNE3TAB36 PO (01:31)
[2017-01-14] MEDS ORDERED: diazePAM 2 MG TAB PO ONE (03:00)
[2017-01-14 04:47] VITALS: BP 109/74
== END 2017-01-14 05:27 | disposition home or self-care (01) ==
LOC: EDBD 01:17 → M ED 02:02
DX: E11.649 Type 2 diabetes mellitus with hypoglycemia without coma (principal); Z79.4 Long term (current) use of insulin; Z79.82 Long term (current) use of aspirin; Z79.899 Other long term (current) drug therapy; Z88.5 Allergy status to narcotic agent; Z88.8 Allergy status to other drugs, medicaments and biological substances

== ENCOUNTER 2017-01-18 12:02 | Observation (INO) | payer MEDICARE, MEDICAID ==
[~2017-01-18] VITALS: Ht 177.8 cm; Wt 82.7 kg
[2017-01-18] MEDS ORDERED: NS 1,000 ML IV SCH (12:41)
--- NOTE | 2017-01-18 13:08 | REP ---
Clinical: Chest pain . Comparison: 10/07/2016 . Technique: PA and lateral. Findings: The mediastinum and cardiac silhouette are normal. The lung garner are clear and without acute consolidation, effusion, or pneumothorax. The skeletal structures are intact and normal. Impression: 1. No acute cardiopulmonary process. Signed by Kashmir Schmid MD 01/18/2017 01:00 P
[2017-01-18 13:39] LABS: BASO % 1.4 % (0.0-1.0); EOS # 0.2 K/mm3 (0.0-0.50); EOS % 4.3 % (0.0-3.0); LARGE UNSTAINED CELL # 0.1 K/mm3 (0.0-0.4); LARGE UNSTAINED CELL % 1.8 % (0.0-4.0); LYMPH # 1.3 K/mm3 (1.5-4.5); MEAN CORPUSCULAR HEMOGLOBIN 32.1 pg (27.0-33.0); MEAN CORPUSCULAR HGB CONC 33.9 g/dl (32.0-36.5); MEAN CORPUSCULAR VOLUME 94.9 fl (80.0-96.0); MONO # 0.2 K/mm3 (0.0-0.8); MONO % 5.3 % (0.0-5.0); NEUTROPHILS # 2.1 K/mm3 (1.8-7.7); NEUTROPHILS % 55.2 % (36.0-66.0); PLATELET COUNT, AUTOMATED 285 k/mm3 (150-450); RED CELL DISTRIBUTION WIDTH 13.6 % (11.5-14.5); WHITE BLOOD COUNT 3.8 K/mm3 (4.0-10.0)
[2017-01-18] MEDS ORDERED: ACETAMINOPHEN TAB 650MG DOSE (2X325MG) PO ONE (13:45)
[2017-01-18 14:00] LABS: BLOOD UREA NITROGEN 16 MG/DL (7-18); CALCIUM LEVEL 8.4 MG/DL (8.5-10.1); CARBON DIOXIDE LEVEL 28 MEQ/L (21-32); CHLORIDE LEVEL 109 MEQ/L (98-107); CREATININE FOR GFR 0.93 MG/DL (0.70-1.30); FREE T4 0.79 NG/DL (0.76-1.46); GLUCOSE, FASTING 146 MG/DL (70-105); MAGNESIUM LEVEL 2.4 MG/DL (1.8-2.4); PHOSPHORUS LEVEL 2.7 MG/DL (2.5-4.9); POTASSIUM SERUM 3.9 MEQ/L (3.5-5.1); SODIUM LEVEL 143 MEQ/L (136-145)
[2017-01-18] MEDS ORDERED: rOPINIRole 1MG TAB PO ONE (14:45)
[2017-01-18] MEDS ORDERED: ROPI1TAB PO (15:24)
[2017-01-18] MEDS ORDERED: INSULANT SC (15:24)
[2017-01-18 15:31] LABS: ANION GAP 6 MEQ/L (8-16)
[2017-01-18] MEDS ORDERED: DEXTROSE 50% 50 ML SYRINGE As Ordered ONE (16:26)
[2017-01-18] MEDS ORDERED: DEXTROSE 50% 50 ML SYRINGE IV STA (16:26)
[2017-01-18] MEDS ORDERED: CYCLOBENZAPRINE 10 MG TAB PO PRN (16:45)
[2017-01-18] MEDS ORDERED: IPRATROPIUM 0.5MG/ALBUTEROL 2.5MG INH SOL UD 3ML (DUONEB)(J7620) NEB PRN (16:45)
[2017-01-18] MEDS ORDERED: GLUCAGON FOR INJ 1 MG VIAL (J1610) SC PRN (16:45)
[2017-01-18] MEDS ORDERED: DEXTROSE 50% 50 ML SYRINGE IV PRN (16:45)
[2017-01-18] MEDS ORDERED: hydrOXYzine 50 MG TAB PO PRN (17:45)
--- NOTE | 2017-01-18 18:13 | ECGEPIP ---
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
[2017-01-18 18:45] VITALS: BP 130/67
[2017-01-18] MEDS: NS 1,000 ML IV SCH (18:46)
[2017-01-18] MEDS: HumaLOG INSULIN (NovoLOG) PER UNIT SC SCH (19:02)
[2017-01-18 20:00] VITALS: BP 135/74
[2017-01-18] MEDS ORDERED: IPRATROPIUM 0.5MG/ALBUTEROL 2.5MG INH SOL UD 3ML (DUONEB)(J7620) NEB SCH (20:00)
[2017-01-18] MEDS ORDERED: HumaLOG INSULIN (NovoLOG) PER UNIT SC SCH (21:00)
[2017-01-18] MEDS ORDERED: rOPINIRole 1MG TAB PO SCH (21:00)
--- NOTE | 2017-01-18 22:20 | HPE ---
DATE OF ADMISSION: 01/18/2017 PRIMARY CARE PROVIDER: Dr. Allen. CHIEF COMPLAINT: Generalized weakness. HISTORY OF PRESENT ILLNESS: The patient is a 46-year-old male with a history of chronic fatigue, presenting with generalized weakness, diffuse body ache, and some dizziness which has resolved. He has a history of type 1 diabetes with episodes of hypoglycemia. Four days ago, he was seen in the emergency department (ED) and evaluated after change in mental status. It was determined that his blood sugar was in the 20s. Today, his blood sugar was normal; however, his creatine kinase (CK) level was 1121. He denies any headache, fever, chills, chest pain, palpitations, trauma. REVIEW OF SYSTEMS: 10-point systems were assessed and negative except as listed above in history of present illness (HPI). PAST MEDICAL HISTORY: 1. Gastroesophageal reflux disease (GERD). 2. Type 1 diabetes. 3. Dyslipidemia. 4. Hypertension. 5. Coronary artery disease with myocardial infarction (MS) 15 years ago. 6. Depression. 7. Bipolar. 8. Possible stroke. PAST SURGICAL HISTORY: 1. Appendectomy. 2. Cardiac catheterization 15 years ago. 3. Gastric bypass four years ago. 4. Laser eye surgery. 5. Left tibia-fibular fractures with repair two years ago. 6. Right eye retinal detachment surgery. FAMILY HISTORY: Mother is hypertensive. Dad has heart disease and lung cancer. Father was a smoker. SOCIAL HISTORY: The patient does smoke a pack a day over five years. Drinks alcohol, beer he prefers, rarely now he says. He denies any recent travel or sick contact. Lives alone. Has a dog and a cat. Is single, but has a daughter. 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 MEDICATION ALLERGIES: 1. MORPHINE. 2. TRAZODONE. 3. ZOLPIDEM. 4. QUETIAPINE. MEDICATION LIST: - Lunesta 3 mg by mouth at bedtime - aspirin 325 mg once a day - atorvastatin 40 mg daily - vitamin D3, 3000 units daily - escitalopram 20 tablets, take two tablets daily - vitamin B12 1000 mcg once a day - hydroxyzine 50 mg every four hours as needed for anxiety - Lantus 31 units in the morning - lamotrigine 25 mg two tablets by mouth daily - pantoprazole 40 mg once a day - ropinirole 1 mg by mouth at bedtime PHYSICAL EXAMINATION: VITAL SIGNS: Blood pressure 122/67, pulse 84, respiratory rate 18, oxygen saturation 96% on room air, temperature 98.6 degrees Fahrenheit. LABORATORY DATA: Hematology: White blood cell count 3.8, hemoglobin 14, hematocrit 41, and platelets 285. Coagulopathy: D-dimer 364. Chemistry: Sodium 143, potassium 3.9, chloride 109, bicarbonate 28, anion gap 6, BUN 16, creatinine 0.93, fasting glucose 146, calcium 8.4, phosphorus 2.7, magnesium 2.4. Total CK 1121, CK-MB 32.9, troponin I less than 0.02. BNP 82.8. TSH 0.7. IMAGING STUDIES: Chest x-ray no acute cardiopulmonary disease. EKG normal sinus rhythm, 85 beats per minute with old Q-waves in inferior leads. IMPRESSION: 1. Rhabdomyolysis of no definite etiology. Likely from the incident that happened four days ago whereby the patient fell, thought he had seizure. 2. Generalized weakness. 3. Type 1 diabetes, labile blood sugar. 4. History of hypertension. Blood pressure is controlled. 5. History of nicotine addiction. PLAN: The patient is admitted for observation. Continue on hydration fluid, saline at 200 mL an hour. He will be ordered Flexeril for cramps. Resume his chronic needed medications. He was counseled about the dangers of tobacco smoking. The patient can be discharged when his CK level resolves or continues to decline to zero.
[2017-01-19] VITALS: BP 116/65
[2017-01-19] MEDS: NS 1,000 ML IV SCH ×3 (00:03→09:45)
[2017-01-19 04:00] VITALS: BP 109/61
[2017-01-19 06:32] LABS: BASO % 1.7 % (0.0-1.0); EOS # 0.3 K/mm3 (0.0-0.50); EOS % 10.9 % (0.0-3.0); LARGE UNSTAINED CELL # 0.1 K/mm3 (0.0-0.4); LYMPH # 1.3 K/mm3 (1.5-4.5); LYMPH % 43.4 % (24.0-44.0); MEAN CORPUSCULAR HEMOGLOBIN 32.1 pg (27.0-33.0); MEAN CORPUSCULAR HGB CONC 33.3 g/dl (32.0-36.5); MEAN CORPUSCULAR VOLUME 96.2 fl (80.0-96.0); MONO # 0.2 K/mm3 (0.0-0.8); MONO % 5.6 % (0.0-5.0); NEUTROPHILS % 35.3 % (36.0-66.0); PLATELET COUNT, AUTOMATED 251 k/mm3 (150-450); RED CELL DISTRIBUTION WIDTH 13.7 % (11.5-14.5); WHITE BLOOD COUNT 2.8 K/mm3 (4.0-10.0)
[2017-01-19 06:52] LABS: ALBUMIN 2.6 GM/DL (3.2-5.2); ALBUMIN/GLOBULIN RATIO 0.96 (1.00-1.93); ALKALINE PHOSPHATASE 165 U/L (45-117); ALT/SGPT 88 U/L (12-78); ANION GAP 6 MEQ/L (8-16); AST/SGOT 63 U/L (15-37); BILIRUBIN,TOTAL 0.5 MG/DL (0.2-1.0); BLOOD UREA NITROGEN 11 MG/DL (7-18); CALCIUM LEVEL 7.4 MG/DL (8.5-10.1); CARBON DIOXIDE LEVEL 24 MEQ/L (21-32); CHLORIDE LEVEL 110 MEQ/L (98-107); CREATININE FOR GFR 0.73 MG/DL (0.70-1.30); GLOMERULAR FILTRATION RATE > 60.0 (>60); GLUCOSE, FASTING 202 MG/DL (70-105); POTASSIUM SERUM 4.2 MEQ/L (3.5-5.1); SODIUM LEVEL 140 MEQ/L (136-145); TOTAL PROTEIN 5.3 GM/DL (6.4-8.2)
[2017-01-19 08:00] VITALS: BP 120/73
[2017-01-19] MEDS: HumaLOG INSULIN (NovoLOG) PER UNIT SC SCH ×2 (08:10→12:22)
--- NOTE | 2017-01-19 08:30 | IPNPDOC ---
Text Note Date of Service The patient was seen on 01/19/17. VS,Fishbone, I+O VS, Fishbone, I+O Laboratory Tests 01/18/17 13:14 Red Blood Count 4.32, Mean Corpuscular Volume 94.9, Mean Corpuscular Hemoglobin 32.1, Mean Corpuscular Hemoglobin Concent 33.9, Red Cell Distribution Width 13.6 , Neutrophils (%) (Auto) 55.2, Lymphocytes (%) (Auto) 32.0, Monocytes (%) (Auto ) 5.3 H, Eosinophils (%) (Auto) 4.3 H, Basophils (%) (Auto) 1.4 H, Neutrophils # (Auto) 2.1, Lymphocytes # (Auto) 1.3 L, Monocytes # (Auto) 0.2, Eosinophils # (Auto) 0.2, Basophils # (Auto) 0.0, Calcium Level 8.4 L, Phosphorus Level 2.7, Total Creatine Kinase 1121 H 01/19/17 06:05 Red Blood Count 4.11 L, Mean Corpuscular Volume 96.2 H, Mean Corpuscular Hemoglobin 32.1, Mean Corpuscular Hemoglobin Concent 33.3, Red Cell Distribution Width 13.7, Neutrophils (%) (Auto) 35.3 L, Lymphocytes (%) (Auto) 43.4, Monocytes (%) (Auto) 5.6 H, Eosinophils (%) (Auto) 10.9 H, Basophils (%) ( Auto) 1.7 H, Neutrophils # (Auto) 1.0 L, Lymphocytes # (Auto) 1.3 L, Monocytes # (Auto) 0.2, Eosinophils # (Auto) 0.3, Basophils # (Auto) 0.0, Calcium Level 7.4 L, Total Creatine Kinase 414 H, Aspartate Amino Transf (AST/SGOT) 63 H, Alanine Aminotransferase (ALT/SGPT) 88 H, Alkaline Phosphatase 165 H, Total Bilirubin 0.5, Total Protein 5.3 L, Albumin 2.6 L Vital Signs Date Time Temp Pulse Resp B/P (MAP) Pulse Ox O2 Delivery O2 Flow Rate FiO2 01/19/17 04:00 98.9 91 18 109/61 (77) 99 Room Air I&O- Last 24 Hours up to 6 AM 01/19/17 06:00 Intake Total 3360 ml Output Total 1950 ml Balance 1410 ml LEVAR PRATT MD Jan 19, 2017 08:30
[2017-01-19] MEDS ORDERED: ATORVASTATIN 20 MG TAB PO SCH (09:00)
[2017-01-19] MEDS ORDERED: lamoTRIgine 25 MG TAB PO SCH (09:00)
[2017-01-19] MEDS ORDERED: ASPIRIN 325 MG TAB PO SCH (09:00)
[2017-01-19] MEDS ORDERED: CitaloPRAM (CeleXA) 20 MG TAB PO SCH (09:00)
[2017-01-19] MEDS ORDERED: LEVEMIR (INSULIN DETEMIR) 1 UNITS/0.01ML SC SCH (09:00)
[2017-01-19] MEDS ORDERED: ENOXAPARIN 40 MG/0.4 ML SYRINGE (J1650) SC SCH (09:00)
[2017-01-19] MEDS ORDERED: CYANOCOBALAMIN 500 MCG TAB PO SCH (09:00)
[2017-01-19] MEDS ORDERED: PANTOPRAZOLE 40MG TAB (PROTONIX) PO SCH (09:00)
[2017-01-19] MEDS ORDERED: VITAMIN D 1,000 INTERNATIONAL UNITS TABLET PO SCH (09:00)
[2017-01-19 12:00] VITALS: BP 126/73
--- NOTE | 2017-01-19 12:00 | DS.PDOC ---
Discharge Summary General Date of Admission Jan 18, 2017 at 17:50 Date of Discharge 01/19/17 Attending Physician: LEVAR PRATT MD Discharge Summary PROCEDURES PERFORMED DURING STAY: None. ADMITTING/DISCHARGE DIAGNOSES: 1. Generalized weakness and elevated CPK, resolved. 2. Type 1 diabetes. 3. Dyslipidemia. 4. Hypertension. 5. Coronary artery disease with myocardial infarction (MD) 15 years ago. 6. Depression. 7. Bipolar. 8. Gastroesophageal reflux disease (GERD). COMPLICATIONS/CHIEF COMPLAINT: Generalized Weakness;Rhabdomyolysis. HISTORY OF PRESENT ILLNESS/HOSPITAL COURSE: 46-year-old male with a history of diabetes, CAD, hypertension who presents complaining of generalized weakness and body aches. Patient was evaluated in the ED 4 days prior to admission and was noted to have blood sugars in the 20s. During this admission, his blood sugars have been stable. On admission patient was also noted to have elevated CPK for which she was started on IV fluids. Patient's generalized weakness, dizziness have completely resolved after IV fluids. Patient's CPK levels have significantly improved as well. He remained hemodynamically stable. Patient states he feels well and was evaluated by physical therapy. The patient was and what they would like to go home as he has to go to work tomorrow when these unable to find somebody to cover him. Patient is to check his blood sugars at home 3 times a day, and to return to the ED if symptoms recur. DISCHARGE MEDICATIONS: Please see below. ALLERGIES: Please see below. PHYSICAL EXAMINATION ON DISCHARGE: VITAL SIGNS: Please see below. General: No acute distress, laying comfortably in bed. HEENT: Moist mucous membranes. Neck: No JVD or lymphadenopathy Cardiac: RRR, No murmurs Pulm: Clear to auscultation b/l. No wheezing, rhonchi Abd: NT/ND + BS Ext: No edema or cyanosis Neuro: Strength 5/5 BUE and BLE. CN 2-12 intact. F to N intact Negative pronator drift. Negative Babinki. LABORATORY DATA: Please see below. IMAGING: CXR 01/18/17 Impression: No acute cardiopulmonary process. PROGNOSIS: Fair ACTIVITY: As tolerated. DIET: Carb consistent DISCHARGE PLAN/DISPOSITION: D/c home. DISCHARGE INSTRUCTIONS: 1. F/u with PCP in 1-2 weeks. DISCHARGE CONDITION: Stable. TIME SPENT ON DISCHARGE: Greater than 30 minutes. Vital Signs/I&Os Vital Signs Date Time Temp Pulse Resp B/P (MAP) Pulse Ox O2 Delivery O2 Flow Rate FiO2 01/19/17 08:00 Room Air 01/19/17 08:00 98.7 84 18 120/73 (89) 98 I&O- Last 24 Hours up to 6 AM 01/19/17 06:00 Intake Total 3360 ml Output Total 1950 ml Balance 1410 ml Laboratory Data Labs 24H Laboratory Tests 2 01/18/17 13:14: White Blood Count 3.8L, Red Blood Count 4.32, Hemoglobin 13.9L, Hematocrit 41.0L , Mean Corpuscular Volume 94.9, Mean Corpuscular Hemoglobin 32.1, Mean Corpuscular Hemoglobin Concent 33.9, Red Cell Distribution Width 13.6, Platelet Count 285, Neutrophils (%) (Auto) 55.2, Lymphocytes (%) (Auto) 32.0, Monocytes ( %) (Auto) 5.3H, Eosinophils (%) (Auto) 4.3H, Basophils (%) (Auto) 1.4H, Neutrophils # (Auto) 2.1, Lymphocytes # (Auto) 1.3L, Monocytes # (Auto) 0.2, Eosinophils # (Auto) 0.2, Basophils # (Auto) 0.0, Large Unclassified Cells % 1.8 , Large Unclassified Cells # 0.1, D-Dimer, Quantitative 364.0, Anion Gap 6L, Blood Urea Nitrogen 16, Creatinine 0.93, Sodium Level 143, Potassium Level 3.9, Chloride Level 109H, Carbon Dioxide Level 28, Calcium Level 8.4L, Phosphorus Level 2.7, Total Creatine Kinase 1121H, Magnesium Level 2.4, Creatine Kinase MB 32.9H, Creatine Kinase MB Relative Index 2.93, Troponin I < 0.02, B-Type Natriuretic Peptide 82.8, Thyroid Stimulating Hormone (TSH) 0.790, Free Thyroxine 0.79 01/18/17 14:15: Bedside Glucose (Misc Panel) 96 01/18/17 16:24: Bedside Glucose (Misc Panel) 44L 01/18/17 17:01: Bedside Glucose (Misc Panel) 238H 01/18/17 20:26: Bedside Glucose (Misc Panel) 229H 01/18/17 23:41: Bedside Glucose (Misc Panel) 143H 01/19/17 03:11: Bedside Glucose (Misc Panel) 80 01/19/17 05:27: Bedside Glucose (Misc Panel) 161H 01/19/17 06:05: White Blood Count 2.8L, Red Blood Count 4.11L, Hemoglobin 13.2L, Hematocrit 39.6L, Mean Corpuscular Volume 96.2H, Mean Corpuscular Hemoglobin 32.1, Mean Corpuscular Hemoglobin Concent 33.3, Red Cell Distribution Width 13.7, Platelet Count 251, Neutrophils (%) (Auto) 35.3L, Lymphocytes (%) (Auto) 43.4, Monocytes (%) (Auto) 5.6H, Eosinophils (%) (Auto) 10.9H, Basophils (%) (Auto) 1.7H, Neutrophils # (Auto) 1.0L, Lymphocytes # (Auto) 1.3L, Monocytes # (Auto) 0.2, Eosinophils # (Auto) 0.3, Basophils # (Auto) 0.0, Large Unclassified Cells % 3.0 , Large Unclassified Cells # 0.1, Anion Gap 6L, Glomerular Filtration Rate > 60.0, Blood Urea Nitrogen 11, Creatinine 0.73, Sodium Level 140, Potassium Level 4.2, Chloride Level 110H, Carbon Dioxide Level 24, Calcium Level 7.4L, Aspartate Amino Transf (AST/SGOT) 63H, Alanine Aminotransferase (ALT/SGPT) 88H, Total Creatine Kinase 414H, Alkaline Phosphatase 165H, Total Bilirubin 0.5, Total Protein 5.3L, Albumin 2.6L, Albumin/Globulin Ratio 0.96L CBC/BMP Laboratory Tests 01/18/17 13:14 Red Blood Count 4.32, Mean Corpuscular Volume 94.9, Mean Corpuscular Hemoglobin 32.1, Mean Corpuscular Hemoglobin Concent 33.9, Red Cell Distribution Width 13.6 , Neutrophils (%) (Auto) 55.2, Lymphocytes (%) (Auto) 32.0, Monocytes (%) (Auto ) 5.3 H, Eosinophils (%) (Auto) 4.3 H, Basophils (%) (Auto) 1.4 H, Neutrophils # (Auto) 2.1, Lymphocytes # (Auto) 1.3 L, Monocytes # (Auto) 0.2, Eosinophils # (Auto) 0.2, Basophils # (Auto) 0.0, Calcium Level 8.4 L, Phosphorus Level 2.7, Total Creatine Kinase 1121 H 01/19/17 06:05 Red Blood Count 4.11 L, Mean Corpuscular Volume 96.2 H, Mean Corpuscular Hemoglobin 32.1, Mean Corpuscular Hemoglobin Concent 33.3, Red Cell Distribution Width 13.7, Neutrophils (%) (Auto) 35.3 L, Lymphocytes (%) (Auto) 43.4, Monocytes (%) (Auto) 5.6 H, Eosinophils (%) (Auto) 10.9 H, Basophils (%) ( Auto) 1.7 H, Neutrophils # (Auto) 1.0 L, Lymphocytes # (Auto) 1.3 L, Monocytes # (Auto) 0.2, Eosinophils # (Auto) 0.3, Basophils # (Auto) 0.0, Calcium Level 7.4 L, Total Creatine Kinase 414 H, Aspartate Amino Transf (AST/SGOT) 63 H, Alanine Aminotransferase (ALT/SGPT) 88 H, Alkaline Phosphatase 165 H, Total Bilirubin 0.5, Total Protein 5.3 L, Albumin 2.6 L FSBS Laboratory Tests Test 01/18/17 14:15 01/18/17 16:24 01/18/17 17:01 01/18/17 20:26 Range/Units Bedside Glucose (Misc Panel) 96 44 238 229 70-105 MG/DL Test 01/18/17 23:41 01/19/17 03:11 01/19/17 05:27 Range/Units Bedside Glucose (Misc Panel) 143 80 161 70-105 MG/DL Discharge Medications Scheduled (Lunesta) 3 Mg Tab, 3 MG PO QHS, (Reported) Aspirin (Aspirin) 325 Mg Tab, 325 MG PO DAILY, (Reported) Atorvastatin Calcium (Atorvastatin Calcium) 40 Mg Tab, 40 MG PO DAILY, (Reported ) Cholecalciferol (Vitamin D3) 3,000 Unit Tab, 3,000 UNIT PO DAILY, (Reported) Citalopram Hydrobromide (Citalopram Hydrobromide) 20 Mg Tab, 40 MG PO DAILY, ( Reported) Cyanocobalamin (Vitamin B12) 1,000 Mcg Tab, 1,000 MCG PO DAILY, (Reported) Insulin Aspart (Novolog Flexpen) 100 Unit/Ml Inj, 1 DOSE SC AC, (Reported) PER SLIDING SCALE Insulin Glargine (Lantus) 1 Units/0.01 Ml Susp, 31 UNITS SC QAM, (Reported) Lamotrigine (Lamotrigine) 25 Mg Tab, 50 MG PO DAILY, (Reported) Pantoprazole Sodium (Pantoprazole Sodium) 40 Mg Tab, 40 MG PO DAILY, (Reported) Ropinirole Hydrochloride (Ropinirole HCl) 1 Mg Tab, 1 MG PO QHS, (Reported) Scheduled PRN Hydroxyzine HCl (Hydroxyzine HCl) 50 Mg Tab, 50 MG PO Q4H PRN for ANXIETY, ( Reported) Allergies Coded Allergies: Quetiapine (Unverified Allergy, Unknown, leg cramps, 01/18/17) Trazodone (Verified Allergy, Unknown, 01/14/17) Zolpidem (Verified Allergy, Unknown, "severe leg cramps", 01/14/17) Morphine (Verified Adverse Reaction, Mild, nausea,stomach ache, 05/17/16) LEVAR PRATT MD Jan 19, 2017 12:00
== END 2017-01-19 13:35 | disposition home or self-care (01) ==
LOC: M ED 12:02 → M ED INP 17:50 → M PED 18:41
PROVIDERS: ADMIT Hospitalist; ATTEND Hospitalist
DX: R53.1 Weakness (principal); E10.9 Type 1 diabetes mellitus without complications; E78.5 Hyperlipidemia, unspecified; I10 Essential (primary) hypertension; I25.10 Atherosclerotic heart disease of native coronary artery without angina pectoris; I25.2 Old myocardial infarction; F31.9 Bipolar disorder, unspecified; K21.9 Gastro-esophageal reflux disease without esophagitis; Z79.82 Long term (current) use of aspirin; Z79.4 Long term (current) use of insulin; Z79.899 Other long term (current) drug therapy; Z88.8 Allergy status to other drugs, medicaments and biological substances; Z98.84 Bariatric surgery status; F17.210 Nicotine dependence, cigarettes, uncomplicated; R06.02 Shortness of breath
CPT/HCPCS: 36415; 71020; 80048; 80053; 82550; 82553; 83735; 83880; 84100; 84439; 84443; 84484; 85025; 85379; 93005; 93041; 94640; 94760; 96361; 96374; 97161; 99285; G0378; G8978; G8979; G8980; J1650

== ENCOUNTER 2017-03-02 01:33 | Emergency (ER) | payer MEDICARE, MEDICAID ==
[~2017-03-02 01:33] MED LIST changes: +ROPI1TAB PO
[2017-03-02] MEDS ORDERED: NS 500 ML IV ONE (02:15)
[2017-03-02 02:23] LABS: BASO % 1.7 % (0.0-1.0); EOS # 0.3 K/mm3 (0.0-0.50); EOS % 9.9 % (0.0-3.0); LARGE UNSTAINED CELL # 0.1 K/mm3 (0.0-0.4); LARGE UNSTAINED CELL % 2.2 % (0.0-4.0); LYMPH % 30.3 % (24.0-44.0); MEAN CORPUSCULAR HEMOGLOBIN 31.1 pg (27.0-33.0); MEAN CORPUSCULAR VOLUME 94.4 fl (80.0-96.0); MONO # 0.2 K/mm3 (0.0-0.8); MONO % 5.2 % (0.0-5.0); NEUTROPHILS # 1.5 K/mm3 (1.8-7.7); NEUTROPHILS % 50.7 % (36.0-66.0); PLATELET COUNT, AUTOMATED 227 k/mm3 (150-450)
[2017-03-02 02:24] LABS: VENOUS PARTIAL PRESSURE CO2 43.9 mmHg (38.0-50.0); VENOUS PARTIAL PRESSURE O2 67.6 mmHg (30.0-50.0); VENOUS STANDARD HCO3 25.3 MEQ/L; VENOUS TOTAL CO2 27.6 MEQ/L (24.0-28.0)
[2017-03-02 02:45] LABS: ANION GAP 8 MEQ/L (8-16); BLOOD UREA NITROGEN 18 MG/DL (7-18); CALCIUM LEVEL 8.9 MG/DL (8.5-10.1); CARBON DIOXIDE LEVEL 28 MEQ/L (21-32); CHLORIDE LEVEL 96 MEQ/L (98-107); CREATININE FOR GFR 1.12 MG/DL (0.70-1.30); GLOMERULAR FILTRATION RATE > 60.0 (>60); MAGNESIUM LEVEL 2.2 MG/DL (1.8-2.4); POTASSIUM SERUM 4.5 MEQ/L (3.5-5.1); SODIUM LEVEL 132 MEQ/L (136-145)
[2017-03-02 02:47] LABS: GLUCOSE, FASTING 578 MG/DL (70-105)
[2017-03-02] MEDS ORDERED: HumuLIN R (REGULAR) INSULIN (NovoLIN R) **100U/ML** PER UNIT IV ONE (03:00)
[2017-03-02 03:46] VITALS: BP 126/80
--- NOTE | 2017-03-02 13:31 | ECGEPIP ---
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
== END 2017-03-02 03:47 | disposition left against medical advice (07) ==
LOC: M ED 01:33
DX: E11.65 Type 2 diabetes mellitus with hyperglycemia (principal); I25.2 Old myocardial infarction; Z86.73 Personal history of transient ischemic attack (TIA), and cerebral infarction without residual deficits; F17.200 Nicotine dependence, unspecified, uncomplicated; Z79.82 Long term (current) use of aspirin; Z79.4 Long term (current) use of insulin; Z79.899 Other long term (current) drug therapy; Z88.5 Allergy status to narcotic agent; Z88.8 Allergy status to other drugs, medicaments and biological substances; Z53.21 Procedure and treatment not carried out due to patient leaving prior to being seen by health care provider

== ENCOUNTER 2017-05-04 22:47 | Emergency (ER) | payer MEDICARE, MEDICAID ==
[~2017-05-04] VITALS: Ht 177.8 cm; Wt 72.7 kg
[2017-05-04] MEDS ORDERED: NS 1,000 ML IV ONE (23:30)
[2017-05-04 23:38] LABS: EOS # 0.3 10^3/uL (0.0-0.50); EOS % 7.8 % (0.0-3.0); IMMATURE GRANULOCYTE % 0.3 % (0-0); LYMPH # 1.5 10^3/uL (1.5-4.5); LYMPH % 38.5 % (24.0-44.0); MEAN CORPUSCULAR HEMOGLOBIN 31.6 pg (27.0-33.0); MEAN CORPUSCULAR VOLUME 90.3 fl (80.0-96.0); MONO # 0.3 10^3/uL (0.0-0.8); MONO % 7.8 % (0.0-5.0); NEUTROPHILS # 1.8 10^3/uL (1.8-7.7); NEUTROPHILS % 44.6 % (36.0-66.0); PLATELET COUNT, AUTOMATED 253 10^3/uL (150-450); RED CELL DISTRIBUTION WIDTH 12.8 % (11.5-14.5)
[2017-05-04 23:59] LABS: ANION GAP 8 MEQ/L (8-16); BLOOD UREA NITROGEN 16 MG/DL (7-18); CALCIUM LEVEL 8.4 MG/DL (8.5-10.1); CARBON DIOXIDE LEVEL 24 MEQ/L (21-32); CHLORIDE LEVEL 106 MEQ/L (98-107); CREATININE FOR GFR 0.72 MG/DL (0.70-1.30); GLOMERULAR FILTRATION RATE > 60.0 (>60); GLUCOSE, FASTING 116 MG/DL (70-105); POTASSIUM SERUM 3.1 MEQ/L (3.5-5.1); SODIUM LEVEL 138 MEQ/L (136-145)
[2017-05-05 00:54] VITALS: BP 113/65
== END 2017-05-05 01:06 | disposition home or self-care (01) ==
LOC: M ED 22:47
DX: F10.10 Alcohol abuse, uncomplicated (principal); E11.9 Type 2 diabetes mellitus without complications; K21.9 Gastro-esophageal reflux disease without esophagitis; F32.9 Major depressive disorder, single episode, unspecified; E78.5 Hyperlipidemia, unspecified; R53.82 Chronic fatigue, unspecified; Z98.84 Bariatric surgery status; Z79.82 Long term (current) use of aspirin; Z79.899 Other long term (current) drug therapy; Z88.5 Allergy status to narcotic agent; Z88.8 Allergy status to other drugs, medicaments and biological substances
CPT/HCPCS: 80048; 82550; 85025; 96360; 96361; 99283; G0480

== ENCOUNTER 2017-08-07 20:36 | Emergency (ER) | payer MEDICARE, MEDICAID ==
[2017-08-07] MEDS: ONDANSETRON 4MG/2ML VIAL (J2405) IV ×2 (22:15)
[2017-08-07] MEDS: MULTIVITAMIN -ADULT INJECTION 10 ML, THIAMINE INJection 100 MG, FOLIC ACID 1 MG in NS 1... IV ×2 (22:15)
[2017-08-07] MEDS: LORazepam 2 MG/ML VIAL (J2060) IV ×2 (22:15)
[2017-08-07] MEDS: OXAZEPAM 15 MG CAP PO ×2 (22:15)
[2017-08-07 22:28] LABS: BASO # 0.1 10^3/uL (0.0-0.2); BASO % 1.2 % (0.0-1.0); EOS # 0.3 10^3/uL (0.0-0.50); EOS % 6.7 % (0.0-3.0); HEMOGLOBIN 13.4 g/dl (14.0-18.0); IMMATURE GRANULOCYTE % 0.2 % (0-0); LYMPH # 1.2 10^3/uL (1.5-4.5); LYMPH % 24.9 % (24.0-44.0); MEAN CORPUSCULAR HEMOGLOBIN 32.4 pg (27.0-33.0); MEAN CORPUSCULAR HGB CONC 35.3 g/dl (32.0-36.5); MEAN CORPUSCULAR VOLUME 91.8 fl (80.0-96.0); MONO # 0.3 10^3/uL (0.0-0.8); MONO % 6.7 % (0.0-5.0); NEUTROPHILS # 2.9 10^3/uL (1.8-7.7); NEUTROPHILS % 60.3 % (36.0-66.0); PLATELET COUNT, AUTOMATED 269 10^3/uL (150-450); RED BLOOD COUNT 4.14 10^6/uL (4.30-6.10); RED CELL DISTRIBUTION WIDTH 12.6 % (11.5-14.5); WHITE BLOOD COUNT 4.9 10^3/uL (4.0-10.0)
[2017-08-07 22:51] LABS: ACETAMINOPHEN LEVEL < 2.0 UG/ML (10.0-30.0); ALBUMIN 2.8 GM/DL (3.2-5.2); ALBUMIN/GLOBULIN RATIO 0.85 (1.00-1.93); ALKALINE PHOSPHATASE 116 U/L (45-117); ALT/SGPT 44 U/L (12-78); ANION GAP 4 MEQ/L (8-16); AST/SGOT 42 U/L (7-37); BILIRUBIN,DIRECT < 0.1 MG/DL (0.0-0.2); BILIRUBIN,TOTAL 0.2 MG/DL (0.2-1.0); BLOOD UREA NITROGEN 19 MG/DL (7-18); CARBON DIOXIDE LEVEL 31 MEQ/L (21-32); CHLORIDE LEVEL 104 MEQ/L (98-107); CREATININE FOR GFR 0.85 MG/DL (0.70-1.30); ETHYL ALCOHOL (ETHANOL) < 0.003 % (0.000-0.010); GLOMERULAR FILTRATION RATE > 60.0 (>60); GLUCOSE, FASTING 294 MG/DL (70-105); PHOSPHORUS LEVEL 3.7 MG/DL (2.5-4.9); POTASSIUM SERUM 4.2 MEQ/L (3.5-5.1); SALICYLATE LEVEL 3.4 MG/DL (5.0-30.0); SODIUM LEVEL 139 MEQ/L (136-145); TOTAL PROTEIN 6.1 GM/DL (6.4-8.2)
[2017-08-12 14:14] LABS: LAMOTRIGINE (LAMICTAL) None Detected ug/mL (2.0-20.0)
== END 2017-08-07 23:25 | disposition home or self-care (01) ==
LOC: M ED 20:36
DX: F10.239 Alcohol dependence with withdrawal, unspecified (principal); I45.2 Bifascicular block; Z98.84 Bariatric surgery status; Z98.61 Coronary angioplasty status; Z89.421 Acquired absence of other right toe(s); F17.200 Nicotine dependence, unspecified, uncomplicated; Z79.82 Long term (current) use of aspirin; Z79.4 Long term (current) use of insulin; Z79.899 Other long term (current) drug therapy; Z88.5 Allergy status to narcotic agent; Z88.8 Allergy status to other drugs, medicaments and biological substances
CPT/HCPCS: J2405

== ENCOUNTER → 2017-08-11 | Outpatient (REF) | payer MEDICARE, MEDICAID ==
[2017-08-11 18:27] LABS: VITAMIN B12 LEVEL 1054 PG/ML (247-911)
[2017-08-11 18:33] LABS: ALBUMIN 3.5 GM/DL (3.2-5.2); ALKALINE PHOSPHATASE 124 U/L (45-117); ALT/SGPT 66 U/L (12-78); ANION GAP 5 MEQ/L (8-16); AST/SGOT 60 U/L (7-37); BILIRUBIN,TOTAL 0.4 MG/DL (0.2-1.0); BLOOD UREA NITROGEN 14 MG/DL (7-18); CALCIUM LEVEL 8.8 MG/DL (8.5-10.1); CARBON DIOXIDE LEVEL 33 MEQ/L (21-32); CHLORIDE LEVEL 102 MEQ/L (98-107); CHOLESTEROL LEVEL 191 MG/DL (<200); CHOLESTEROL RISK RATIO 1.989 (<5); CREATININE FOR GFR 0.83 MG/DL (0.70-1.30); GLOMERULAR FILTRATION RATE > 60.0 (>60); GLUCOSE, FASTING 125 MG/DL (70-100); HDL CHOLESTEROL 96 MG/DL (>40); LDL CHOLESTEROL 82.8 MG/DL (<100); NON-HDL-C 95 MG/DL; POTASSIUM SERUM 3.5 MEQ/L (3.5-5.1); SODIUM LEVEL 140 MEQ/L (136-145); TOTAL PROTEIN 7.4 GM/DL (6.4-8.2); TRIGLYCERIDES LEVEL 61 MG/DL (<150)
[2017-08-11 18:57] LABS: MAU/CREAT RATIO 1314.8 MCG/MG (0.0-30.0)
[2017-08-11 19:23] LABS: ESTIMATED AVERAGE GLUCOSE 235 MG/DL (60-110); HEMOGLOBIN A1c 9.8 %
== END ==
LOC: M SFHCCAPE 09:16
DX: E78.5 Hyperlipidemia, unspecified (principal); E11.9 Type 2 diabetes mellitus without complications; I10 Essential (primary) hypertension; Z98.84 Bariatric surgery status
CPT/HCPCS: 84443

== ENCOUNTER → 2017-08-21 | Outpatient (REF) | payer MEDICARE, MEDICAID ==
[2017-08-21 20:51] LABS: MAU/CREAT RATIO 1140.1 MCG/MG (0.0-30.0)
== END ==
LOC: M SFHCCAPE 16:21
DX: R80.9 Proteinuria, unspecified (principal)
CPT/HCPCS: 82043

== ENCOUNTER → 2017-09-02 | Outpatient (REF) | payer MEDICARE, MEDICAID ==
[2017-09-02 22:59] LABS: CREATININE, URINE 20.7 MG/DL; MAU/CREAT RATIO 1584.5 MCG/MG (0.0-30.0)
== END ==
LOC: M SFHCCAPE 09:48
DX: R80.9 Proteinuria, unspecified (principal)
CPT/HCPCS: 82043

== ENCOUNTER 2017-09-06 18:17 | Observation (INO) | payer MEDICARE, MEDICAID ==
[2017-09-06] MEDS: SENOKOT S TAB PO ×2 (09:00)
[2017-09-06 18:57] LABS: BASO # 0.1 10^3/uL (0.0-0.2); BASO % 1.5 % (0.0-1.0); EOS # 0.5 10^3/uL (0.0-0.50); EOS % 8.6 % (0.0-3.0); HEMATOCRIT 42.7 % (42.0-52.0); HEMOGLOBIN 15.4 g/dl (14.0-18.0); IMMATURE GRANULOCYTE % 0.2 % (0-3.0); LYMPH # 3.1 10^3/uL (1.5-4.5); LYMPH % 52.6 % (24.0-44.0); MEAN CORPUSCULAR HEMOGLOBIN 31.5 pg (27.0-33.0); MEAN CORPUSCULAR HGB CONC 36.1 g/dl (32.0-36.5); MEAN CORPUSCULAR VOLUME 87.3 fl (80.0-96.0); MONO # 0.5 10^3/uL (0.0-0.8); MONO % 7.8 % (0.0-5.0); NEUTROPHILS # 1.7 10^3/uL (1.8-7.7); NEUTROPHILS % 29.3 % (36.0-66.0); PLATELET COUNT, AUTOMATED 266 10^3/uL (150-450); RED BLOOD COUNT 4.89 10^6/uL (4.30-6.10); RED CELL DISTRIBUTION WIDTH 11.9 % (11.5-14.5); WHITE BLOOD COUNT 5.9 10^3/uL (4.0-10.0)
[2017-09-06 19:16] LABS: ESTIMATED AVERAGE GLUCOSE 229 MG/DL (60-110); HEMOGLOBIN A1c 9.6 %
[2017-09-06 19:26] LABS: ALBUMIN 3.8 GM/DL (3.2-5.2); ALBUMIN/GLOBULIN RATIO 1.09 (1.00-1.93); ALKALINE PHOSPHATASE 130 U/L (45-117); ALT/SGPT 48 U/L (12-78); ANION GAP 15 MEQ/L (8-16); AST/SGOT 39 U/L (7-37); BILIRUBIN,DIRECT 0.1 MG/DL (0.0-0.2); BILIRUBIN,TOTAL 0.3 MG/DL (0.2-1.0); BLOOD UREA NITROGEN 11 MG/DL (7-18); CALCIUM LEVEL 8.8 MG/DL (8.5-10.1); CARBON DIOXIDE LEVEL 23 MEQ/L (21-32); CHLORIDE LEVEL 102 MEQ/L (98-107); CK-MB VALUE MASS 8.4 NG/ML (0.0-3.6); CPK CREATINE PHOSPHOKINASE 300 U/L (39-308); CREATININE FOR GFR 0.84 MG/DL (0.70-1.30); ETHYL ALCOHOL (ETHANOL) 0.173 % (0.000-0.010); GLOMERULAR FILTRATION RATE > 60.0 (>60); GLUCOSE, FASTING 54 MG/DL (70-100); LIPASE 106 U/L (73-393); MAGNESIUM LEVEL 2.2 MG/DL (1.8-2.4); POTASSIUM SERUM 3.2 MEQ/L (3.5-5.1); SODIUM LEVEL 140 MEQ/L (136-145); TOTAL PROTEIN 7.3 GM/DL (6.4-8.2); TROPONIN I < 0.02 NG/ML (< 0.10)
[2017-09-06] MEDS: DEXTROSE 50% 50 ML SYRINGE IV ×2 (19:39)
[2017-09-06 19:40] LABS: BEDSIDE GLUCOSE 49 MG/DL (70-105)
[2017-09-06 19:54] LABS: BEDSIDE GLUCOSE 161 MG/DL (70-105)
[2017-09-06] MEDS: LORazepam 2 MG/ML VIAL (J2060) IV ×4 (19:55→22:45)
[2017-09-06] MEDS ORDERED: KCL 10MEQ IN 100ML SWI (KRUN) 10 MEQ in APPROPRIATE DILUENT 1 EA IV (20:00)
[2017-09-06] MEDS ORDERED: KCL 10MEQ/100ML SWI *ED/ICU* 10 MEQ in APPROPRIATE DILUENT 1 EA IV (20:00)
[2017-09-06 20:03] LABS: ABG BASE EXCESS -2.6 (-2.0-2.0); ABG HCO3 17.5 MEQ/L (22.0-26.0); ABG O2 SATURATION 97.7 % (95.0-99.0); ABG PARTIAL PRESSURE CO2 20.7 mmHg (35.0-45.0); ABG STANDARD HCO3 22.3 MEQ/L (22.0-26.0); ABG TOTAL CO2 18.2 MEQ/L (22.0-29.0); ABG pH (ARTERIAL) 7.546 UNITS (7.350-7.450)
[2017-09-06] MEDS ORDERED: METOPROLOL 5 MG/5 ML VIAL IV ×2 (20:15)
[2017-09-06] MEDS ORDERED: ISOVUE-370 76% 100ML VIAL (Q9967) As Ordered ×2 (21:03)
[2017-09-06 21:09] LABS: BEDSIDE GLUCOSE 117 MG/DL (70-105)
[2017-09-06] MEDS: MORPHINE 2 MG/ML 1ML SYRINGE (J2270) IV ×2 (21:10)
[2017-09-06 21:56] LABS: KETONE, URINE AUTO RFX NEGATIVE (NEGATIVE); LEUKOCYTE ESTERASE UR AUTO RFX NEGATIVE (NEGATIVE); NITRITE, URINE AUTO RFX NEGATIVE (NEGATIVE); RBC, URINE AUTO RFX 0 /HPF (0-3); SPECIFIC GRAVITY UR AUTO RFX 1.002 (1.002-1.035); SQUAM EPITHELIAL CELL UR AURFX 0 /HPF (0-6); WBC, URINE AUTO RFX 0 /HPF (0-3)
[2017-09-06 22:10] LABS: AMPHETAMINES LEVEL URINE NEGATIVE (NEGATIVE); BARBITURATES URINE NEGATIVE (NEGATIVE); BENZODIAZEPINES URINE NEGATIVE (NEGATIVE); CANNABINOIDS URINE NEGATIVE (NEGATIVE); COCAINE METABOLITE URINE NEGATIVE (NEGATIVE); METHADONE URINE NEGATIVE (NEGATIVE); OPIATES URINE NEGATIVE (NEGATIVE); PHENCYCLIDINE URINE NEGATIVE (NEGATIVE)
[2017-09-06] MEDS: OXAZEPAM 15 MG CAP PO ×2 (22:45)
[2017-09-06] MEDS: DERMABOND TOPICAL SKIN ADHESIVE TOP ×2 (23:45)
[2017-09-07] MEDS ORDERED: GLUCOSE 4 GM CHEW TABLET PO ×2 (01:15)
[2017-09-07] MEDS ORDERED: GLUCAGON FOR INJ 1 MG VIAL (J1610) SC ×2 (01:15)
[2017-09-07] MEDS: THIAMINE HCL 200 MG/2 ML VIAL (J3411) IV ×2 (01:48)
[2017-09-07] MEDS: SENOKOT S TAB PO ×4 (01:48→09:00)
[2017-09-07] MEDS: HumaLOG INSULIN (NovoLOG) PER UNIT SC ×8 (01:55→12:34)
[2017-09-07] MEDS: DEXTROSE 50% 50 ML SYRINGE IV ×2 (02:02)
[2017-09-07 02:04] LABS: BEDSIDE GLUCOSE 43 MG/DL (70-105)
[2017-09-07 02:12] LABS: CK-MB VALUE MASS 4.9 NG/ML (0.0-3.6); CPK CREATINE PHOSPHOKINASE 218 U/L (39-308); MB/CK RELATIVE INDEX 2.24 (< OR =4); TROPONIN I < 0.02 NG/ML (< 0.10)
[2017-09-07 02:29] LABS: BEDSIDE GLUCOSE 178 MG/DL (70-105)
[2017-09-07] MEDS: FOLIC ACID 1 MG in NS 50 ML IV (02:33)
[2017-09-07 03:39] LABS: BEDSIDE GLUCOSE 405 MG/DL (70-105)
[2017-09-07 04:19] LABS: BEDSIDE GLUCOSE 314 MG/DL (70-105)
[2017-09-07 05:05] LABS: BEDSIDE GLUCOSE 316 MG/DL (70-105)
[2017-09-07 06:23] LABS: BEDSIDE GLUCOSE 282 MG/DL (70-105)
[2017-09-07] MEDS: rOPINIRole 1MG TAB PO ×4 (09:00→12:35)
[2017-09-07 09:34] LABS: CK-MB VALUE MASS 3.2 NG/ML (0.0-3.6); CPK CREATINE PHOSPHOKINASE 160 U/L (39-308); TROPONIN I < 0.02 NG/ML (< 0.10)
[2017-09-07] MEDS: CYANOCOBALAMIN 500 MCG TAB PO ×2 (09:36)
[2017-09-07] MEDS: VITAMIN D 1,000 INTERNATIONAL UNITS TABLET PO ×2 (09:36)
[2017-09-07] MEDS: OXAZEPAM 10 MG CAP PO ×2 (09:37)
[2017-09-07] MEDS: FOLIC ACID 1 MG TAB PO ×2 (09:37)
[2017-09-07] MEDS: ASPIRIN 325 MG TAB PO ×2 (09:37)
[2017-09-07] MEDS: lamoTRIgine 25 MG TAB PO ×2 (09:37)
[2017-09-07] MEDS: CitaloPRAM (CeleXA) 20 MG TAB PO ×2 (09:37)
[2017-09-07] MEDS: ATORVASTATIN 20 MG TAB PO ×2 (09:37)
[2017-09-07] MEDS: THIAMINE 100 MG TAB PO ×2 (09:37)
[2017-09-07] MEDS: hydrOXYzine 50 MG TAB PO ×2 (09:38)
[2017-09-07] MEDS: LOSARTAN 25 MG TAB PO ×2 (09:38)
[2017-09-07] MEDS: LEVEMIR (INSULIN DETEMIR) 1 UNITS/0.01ML SC ×2 (09:38)
[2017-09-07 11:19] LABS: ANION GAP 9 MEQ/L (8-16); BLOOD UREA NITROGEN 15 MG/DL (7-18); CALCIUM LEVEL 8.9 MG/DL (8.5-10.1); CARBON DIOXIDE LEVEL 28 MEQ/L (21-32); CHLORIDE LEVEL 104 MEQ/L (98-107); CREATININE FOR GFR 0.87 MG/DL (0.70-1.30); GLOMERULAR FILTRATION RATE > 60.0 (>60); GLUCOSE, FASTING 322 MG/DL (70-100); POTASSIUM SERUM 4.8 MEQ/L (3.5-5.1); SODIUM LEVEL 141 MEQ/L (136-145)
[2017-09-07 11:48] LABS: BEDSIDE GLUCOSE 447 MG/DL (70-105)
[2017-09-08 14:27] LABS: BEDSIDE GLUCOSE > 600 MG/DL (70-105)
== END 2017-09-07 13:41 | disposition home or self-care (01) ==
LOC: M ED INP 18:18 → M ED 18:17 → M ED INP 09-07 01:01
PROVIDERS: Internal Medicine
DX: F10.120 Alcohol abuse with intoxication, uncomplicated (principal); G93.41 Metabolic encephalopathy; S01.312A Laceration without foreign body of left ear, initial encounter; W00.1XXA Fall from stairs and steps due to ice and snow, initial encounter; Y92.098 Other place in other non-institutional residence as the place of occurrence of the external cause; E10.649 Type 1 diabetes mellitus with hypoglycemia without coma; R33.9 Retention of urine, unspecified; E78.5 Hyperlipidemia, unspecified; I25.10 Atherosclerotic heart disease of native coronary artery without angina pectoris; I11.9 Hypertensive heart disease without heart failure; F31.9 Bipolar disorder, unspecified; K21.9 Gastro-esophageal reflux disease without esophagitis; H54.8 Legal blindness, as defined in USA; Z98.84 Bariatric surgery status; I25.2 Old myocardial infarction; F17.210 Nicotine dependence, cigarettes, uncomplicated; Z88.8 Allergy status to other drugs, medicaments and biological substances; Z88.5 Allergy status to narcotic agent; Z79.899 Other long term (current) drug therapy; Z79.82 Long term (current) use of aspirin
CPT/HCPCS: Q9967

== ENCOUNTER 2017-09-15 19:06 | Emergency (ER) | payer MEDICARE, MEDICAID ==
[2017-09-15 21:56] LABS: BASO # 0.1 10^3/uL (0.0-0.2); BASO % 1.1 % (0.0-1.0); EOS # 0.4 10^3/uL (0.0-0.50); EOS % 8.4 % (0.0-3.0); HEMATOCRIT 38.5 % (42.0-52.0); HEMOGLOBIN 13.6 g/dl (14.0-18.0); IMMATURE GRANULOCYTE % 0.2 % (0-3.0); LYMPH # 1.5 10^3/uL (1.5-4.5); LYMPH % 34.5 % (24.0-44.0); MEAN CORPUSCULAR HGB CONC 35.3 g/dl (32.0-36.5); MEAN CORPUSCULAR VOLUME 90.6 fl (80.0-96.0); MONO # 0.3 10^3/uL (0.0-0.8); MONO % 7.4 % (0.0-5.0); NEUTROPHILS # 2.1 10^3/uL (1.8-7.7); NEUTROPHILS % 48.4 % (36.0-66.0); PLATELET COUNT, AUTOMATED 269 10^3/uL (150-450); RED BLOOD COUNT 4.25 10^6/uL (4.30-6.10); RED CELL DISTRIBUTION WIDTH 12.1 % (11.5-14.5); WHITE BLOOD COUNT 4.4 10^3/uL (4.0-10.0)
[2017-09-15] MEDS: MULTIVITAMIN -ADULT INJECTION 10 ML, THIAMINE INJection 100 MG, FOLIC ACID 1 MG in NS 1... IV (22:18)
[2017-09-15 22:20] LABS: ALBUMIN 3.2 GM/DL (3.2-5.2); ALBUMIN/GLOBULIN RATIO 0.89 (1.00-1.93); ALKALINE PHOSPHATASE 134 U/L (45-117); ALT/SGPT 52 U/L (12-78); ANION GAP 5 MEQ/L (8-16); AST/SGOT 34 U/L (7-37); BILIRUBIN,DIRECT < 0.1 MG/DL (0.0-0.2); BILIRUBIN,TOTAL 0.1 MG/DL (0.2-1.0); BLOOD UREA NITROGEN 9 MG/DL (7-18); CALCIUM LEVEL 8.2 MG/DL (8.5-10.1); CARBON DIOXIDE LEVEL 31 MEQ/L (21-32); CHLORIDE LEVEL 102 MEQ/L (98-107); CPK CREATINE PHOSPHOKINASE 121 U/L (39-308); CREATININE FOR GFR 0.87 MG/DL (0.70-1.30); ETHYL ALCOHOL (ETHANOL) < 0.003 % (0.000-0.010); GLOMERULAR FILTRATION RATE > 60.0 (>60); GLUCOSE, FASTING 322 MG/DL (70-100); LIPASE 91 U/L (73-393); POTASSIUM SERUM 4.2 MEQ/L (3.5-5.1); SODIUM LEVEL 138 MEQ/L (136-145); TOTAL PROTEIN 6.8 GM/DL (6.4-8.2)
[2017-09-15] MEDS: HumuLIN R (REGULAR) INSULIN (NovoLIN R) **100U/ML** PER UNIT IV (22:53)
[2017-09-15 23:36] LABS: BEDSIDE GLUCOSE 175 MG/DL (70-105)
== END 2017-09-15 23:37 | disposition home or self-care (01) ==
LOC: M ED 19:06
DX: E11.65 Type 2 diabetes mellitus with hyperglycemia (principal); F10.230 Alcohol dependence with withdrawal, uncomplicated; Z79.899 Other long term (current) drug therapy; Z79.82 Long term (current) use of aspirin; Z79.4 Long term (current) use of insulin; Z88.5 Allergy status to narcotic agent; Z88.8 Allergy status to other drugs, medicaments and biological substances
CPT/HCPCS: J3411

== ENCOUNTER 2017-10-01 00:43 | Emergency (ER) | payer MEDICARE, MEDICAID ==
[2017-10-01] MEDS ORDERED: HALOPERIDOL 5 MG/ML VIAL (J1630) As Ordered (01:18)
[2017-10-01] MEDS: HALOPERIDOL 5 MG/ML VIAL (J1630) IM ×2 (01:20→01:39)
[2017-10-01] MEDS: diphenhydrAMINE INJ 50MG/ML VIAL (J1200) IM (01:27)
[2017-10-01 01:29] LABS: HEMATOCRIT 39.4 % (42.0-52.0); HEMOGLOBIN 13.7 g/dl (14.0-18.0); MEAN CORPUSCULAR HEMOGLOBIN 31.6 pg (27.0-33.0); MEAN CORPUSCULAR HGB CONC 34.8 g/dl (32.0-36.5); PLATELET COUNT, AUTOMATED 241 10^3/uL (150-450); RED BLOOD COUNT 4.33 10^6/uL (4.30-6.10); RED CELL DISTRIBUTION WIDTH 11.9 % (11.5-14.5); WHITE BLOOD COUNT 3.8 10^3/uL (4.0-10.0)
[2017-10-01 01:58] LABS: ACETAMINOPHEN LEVEL < 2.0 UG/ML (10.0-30.0); ALBUMIN 3.6 GM/DL (3.2-5.2); ALBUMIN/GLOBULIN RATIO 1.16 (1.00-1.93); ALKALINE PHOSPHATASE 119 U/L (45-117); ALT/SGPT 78 U/L (12-78); ANION GAP 8 MEQ/L (8-16); AST/SGOT 67 U/L (7-37); BILIRUBIN,DIRECT 0.1 MG/DL (0.0-0.2); BILIRUBIN,TOTAL 0.2 MG/DL (0.2-1.0); BLOOD UREA NITROGEN 11 MG/DL (7-18); CALCIUM LEVEL 8.5 MG/DL (8.5-10.1); CARBON DIOXIDE LEVEL 29 MEQ/L (21-32); CHLORIDE LEVEL 101 MEQ/L (98-107); CREATININE FOR GFR 0.91 MG/DL (0.70-1.30); ETHYL ALCOHOL (ETHANOL) 0.183 % (0.000-0.010); GLOMERULAR FILTRATION RATE > 60.0 (>60); POTASSIUM SERUM 4.4 MEQ/L (3.5-5.1); SALICYLATE LEVEL 2.6 MG/DL (5.0-30.0); SODIUM LEVEL 138 MEQ/L (136-145); TOTAL PROTEIN 6.7 GM/DL (6.4-8.2)
[2017-10-01 02:07] LABS: GLUCOSE, FASTING 411 MG/DL (70-100)
[2017-10-01] MEDS: OLANZapine INTRAMUSCULAR 10 MG VIAL (S0166) IM (02:14)
[2017-10-01] MEDS: PHENobarbital 30 MG TAB PO (02:30)
[2017-10-01] MEDS: HumaLOG INSULIN (NovoLOG) PER UNIT SC (02:40)
[2017-10-01 02:50] LABS: AMPHETAMINES LEVEL URINE NEGATIVE (NEGATIVE); BARBITURATES URINE NEGATIVE (NEGATIVE); BENZODIAZEPINES URINE NEGATIVE (NEGATIVE); CANNABINOIDS URINE NEGATIVE (NEGATIVE); COCAINE METABOLITE URINE NEGATIVE (NEGATIVE); METHADONE URINE NEGATIVE (NEGATIVE); OPIATES URINE NEGATIVE (NEGATIVE); PHENCYCLIDINE URINE NEGATIVE (NEGATIVE)
[2017-10-01] MEDS: NS 1,000 ML IV (02:50)
[2017-10-01] MEDS ORDERED: MIDAZOLAM INJ 2 MG/2 ML VIAL (J2250) As Ordered (02:54)
[2017-10-01] MEDS: MIDAZOLAM INJ 2 MG/2 ML VIAL (J2250) IV (03:03)
[2017-10-01 03:21] LABS: BEDSIDE GLUCOSE 356 MG/DL (70-105)
[2017-10-02 11:56] LABS: BEDSIDE GLUCOSE 420 MG/DL (70-105)
== END 2017-10-01 03:57 | disposition home or self-care (01) ==
LOC: M ED 00:43
DX: F10.120 Alcohol abuse with intoxication, uncomplicated (principal); E11.65 Type 2 diabetes mellitus with hyperglycemia; F98.9 Unspecified behavioral and emotional disorders with onset usually occurring in childhood and adolescence; Z78.1 Physical restraint status; Z88.5 Allergy status to narcotic agent; Z88.8 Allergy status to other drugs, medicaments and biological substances; Z79.899 Other long term (current) drug therapy; Z79.82 Long term (current) use of aspirin; Z79.4 Long term (current) use of insulin
CPT/HCPCS: J1200

== ENCOUNTER → 2017-10-06 | Outpatient (CLI) | payer MEDICARE, MEDICAID | LOC: M OUTALCOH 14:15 | DX: F10.20 Alcohol dependence, uncomplicated (principal) | CPT/HCPCS: H0050 ==

== ENCOUNTER → 2017-10-29 | Outpatient (REF) | payer MEDICARE, MEDICAID ==
[2017-10-29 16:43] LABS: ALBUMIN 3.5 GM/DL (3.2-5.2); ALBUMIN/GLOBULIN RATIO 1.06 (1.00-1.93); ALKALINE PHOSPHATASE 165 U/L (45-117); ALT/SGPT 77 U/L (12-78); ANION GAP 11 MEQ/L (8-16); AST/SGOT 183 U/L (7-37); BILIRUBIN,TOTAL 0.5 MG/DL (0.2-1.0); BLOOD UREA NITROGEN 9 MG/DL (7-18); CALCIUM LEVEL 8.5 MG/DL (8.5-10.1); CARBON DIOXIDE LEVEL 28 MEQ/L (21-32); CHLORIDE LEVEL 98 MEQ/L (98-107); CREATININE FOR GFR 0.91 MG/DL (0.70-1.30); GLOMERULAR FILTRATION RATE > 60.0 (>60); GLUCOSE, FASTING 399 MG/DL (70-100); POTASSIUM SERUM 3.6 MEQ/L (3.5-5.1); SODIUM LEVEL 137 MEQ/L (136-145); TOTAL PROTEIN 6.8 GM/DL (6.4-8.2)
[2017-10-29 19:31] LABS: ESTIMATED AVERAGE GLUCOSE 220 MG/DL (60-110); HEMOGLOBIN A1c 9.3 %
== END ==
LOC: M SFHCCAPE 08:51
DX: E11.8 Type 2 diabetes mellitus with unspecified complications (principal)
CPT/HCPCS: 80053

== ENCOUNTER 2017-10-30 09:41 | Emergency (ER) | payer MEDICARE, MEDICAID ==
[2017-10-30 10:14] LABS: BASO # 0.1 10^3/uL (0.0-0.2); BASO % 1.2 % (0.0-1.0); EOS # 0.1 10^3/uL (0.0-0.50); EOS % 2.7 % (0.0-3.0); HEMATOCRIT 39.2 % (42.0-52.0); HEMOGLOBIN 13.8 g/dl (13.5-17.5); LYMPH # 1.4 10^3/uL (1.5-4.5); LYMPH % 34.8 % (24.0-44.0); MEAN CORPUSCULAR HEMOGLOBIN 30.5 pg (27.0-33.0); MEAN CORPUSCULAR HGB CONC 35.2 g/dl (32.0-36.5); MEAN CORPUSCULAR VOLUME 86.5 fl (80.0-96.0); MONO # 0.4 10^3/uL (0.0-0.8); MONO % 10.4 % (0.0-5.0); NEUTROPHILS # 2.1 10^3/uL (1.8-7.7); NEUTROPHILS % 50.9 % (36.0-66.0); PLATELET COUNT, AUTOMATED 229 10^3/uL (150-450); RED BLOOD COUNT 4.53 10^6/uL (4.30-6.10); RED CELL DISTRIBUTION WIDTH 12.9 % (11.5-14.5); WHITE BLOOD COUNT 4.1 10^3/uL (4.0-10.0)
[2017-10-30 10:47] LABS: ALBUMIN 3.6 GM/DL (3.2-5.2); ALBUMIN/GLOBULIN RATIO 1.06 (1.00-1.93); ALKALINE PHOSPHATASE 164 U/L (45-117); ALT/SGPT 60 U/L (12-78); ANION GAP 11 MEQ/L (8-16); AST/SGOT 55 U/L (7-37); BILIRUBIN,DIRECT 0.2 MG/DL (0.0-0.2); BLOOD UREA NITROGEN 10 MG/DL (7-18); CARBON DIOXIDE LEVEL 25 MEQ/L (21-32); CHLORIDE LEVEL 104 MEQ/L (98-107); CPK CREATINE PHOSPHOKINASE 238 U/L (39-308); CREATININE FOR GFR 1.02 MG/DL (0.70-1.30); GLOMERULAR FILTRATION RATE > 60.0 (>60); GLUCOSE, FASTING 315 MG/DL (70-100); POTASSIUM SERUM 3.6 MEQ/L (3.5-5.1); SODIUM LEVEL 140 MEQ/L (136-145); TROPONIN I < 0.02 NG/ML (< 0.10)
[2017-10-30 10:48] LABS: CK-MB VALUE MASS 2.9 NG/ML (<3.6); MB/CK RELATIVE INDEX 1.21 (< OR =4)
[2017-10-30 11:01] LABS: ACETAMINOPHEN LEVEL < 2.0 UG/ML (10.0-30.0); LIPASE 97 U/L (73-393); SALICYLATE LEVEL 3.7 MG/DL (5.0-30.0)
[2017-10-30 11:13] LABS: ETHYL ALCOHOL (ETHANOL) < 0.003 % (0.000-0.010)
[2017-10-30] MEDS: NS 1,000 ML IV (11:32)
[2017-10-30] MEDS: LORazepam 1 MG TAB PO (11:32)
[2017-10-30 11:48] LABS: KETONE, URINE AUTO RFX 1+ mg/dL (NEGATIVE); LEUKOCYTE ESTERASE UR AUTO RFX NEGATIVE (NEGATIVE); NITRITE, URINE AUTO RFX NEGATIVE (NEGATIVE); RBC, URINE AUTO RFX 1 /HPF (0-3); SPECIFIC GRAVITY UR AUTO RFX 1.007 (1.002-1.035); SQUAM EPITHELIAL CELL UR AURFX 0 /HPF (0-6); WBC, URINE AUTO RFX 0 /HPF (0-3)
[2017-10-30 13:53] LABS: BEDSIDE GLUCOSE 288 MG/DL (70-105)
[2017-10-30 14:05] LABS: AMPHETAMINES LEVEL URINE NEGATIVE (NEGATIVE); BARBITURATES URINE NEGATIVE (NEGATIVE); BENZODIAZEPINES URINE NEGATIVE (NEGATIVE); CANNABINOIDS URINE NEGATIVE (NEGATIVE); COCAINE METABOLITE URINE NEGATIVE (NEGATIVE); METHADONE URINE NEGATIVE (NEGATIVE); OPIATES URINE NEGATIVE (NEGATIVE); PHENCYCLIDINE URINE NEGATIVE (NEGATIVE)
[2017-10-31 11:28] LABS: BEDSIDE GLUCOSE 322 MG/DL (70-105)
== END 2017-10-30 14:32 | disposition home or self-care (01) ==
LOC: M ED 09:41
DX: F41.9 Anxiety disorder, unspecified (principal); E11.9 Type 2 diabetes mellitus without complications; I10 Essential (primary) hypertension; E78.9 Disorder of lipoprotein metabolism, unspecified; I25.2 Old myocardial infarction; F31.9 Bipolar disorder, unspecified; F17.200 Nicotine dependence, unspecified, uncomplicated; Z79.4 Long term (current) use of insulin; Z79.899 Other long term (current) drug therapy; Z98.84 Bariatric surgery status; Z98.890 Other specified postprocedural states; Z88.5 Allergy status to narcotic agent; Z88.8 Allergy status to other drugs, medicaments and biological substances
CPT/HCPCS: 71046

== ENCOUNTER 2017-11-19 06:00 | Day surgery (SDC) | payer MEDICARE, MEDICAID ==
[~2017-11-19 06:00] MED LIST changes: -/ATOR40TA; -/ATOR40TA OR; -/AUGM875TA; -/FAMO2TA PO; -/INSUREG SC; -/LOR25TA PO; -/METO25TAB PO; -/QUET10TA OR; -ABIL10TA OR; -ABIL10TA9 PO; -ABIL5TAB OR; -ACET500C; -ACET65TA; -ACET65TA OR; +ACETAMINOPHEN 325 MG TAB PO; -AMLO5TAB OR; -ARIP1TAB PO; -ASPI325T; -ASPI325T OR; -ASPI325T PO; -ASPI81CH3 PO; -ATARAX OR; -ATEN25TA; -ATEN25TA OR; -ATIV0.5T OR; -ATIV1TAB2 OR; -ATOR1TAB21 PO; -ATOR40TA75 PO; -AUGM875T28 PO; -BACT800T5 PO; -BENA20TA2 OR; -BUPROPION HCL PO; -CELE20TA; -CELE40TA OR; -CIPR25SS OR; -CITA20TA2 PO; -CITA20TA4 PO; -DEPA500T; -DEPA500T2 OR; -DEPAKOTE ER PO; -DEPAKOTE PO; -DIOV160T5; -DIOV160T5 OR; -DIOV320T; -DRIS50002 PO; -EFFE75CA75 OR; -EFFE75CA75 PO; -FLON0.05; -GLUCAGEN SC; -GLUCOSE OR; -HIBI4LIQ TOP; -HUMA50IN SQ; -HUMULIN N SC; -HYDR50TA70 PO; -HYDR50TA8 OR; -INSUH10VL SC; -INSULANT; -INSULANT SC; -INSULIN LANTUS SC; -KEFL500C17 PO; -LAMI25TA OR; -LAMI25TA PO; -LAMO25TA2 PO; -LANTINJ4 SC; -LANTUS; -LANTUS SC; -LANTUS U SC; -LEVA750T7 PO; -LIPITOR PO; -LOSA25TA8 PO; -LOTREL PO; -LUNE3TAB36 PO; -MICR10CA PO; -MILKSUS OR; -MUPI2OI EXT; -NIACIN OR; -NIACPOW39 PO; -NIAS10003; -NIAS500T2 OR; -NOVOINJ3; -NOVOINJ3 SC; -NOVOLOG SC; -NOVOLOG100 MG/ML; -NOVOLOG100 MG/ML SC; -PANT40TA2 PO; -PERC7.5T12 PO; -PERCOCET PO; -PSEU60TA2 OR; -QUET1TAB8 PO; -REME15TA PO; -REQU1TAB16 PO; -ROPI1TAB PO; -SERO400T OR; -SEROQUEL PO; +SLF 3 ML SYR IV; -TRAZ100T OR; -TRAZ150T OR; -TYLE325T5 PO; -VITA100072 PO; -VITA30004 PO; -VITA500047 PO; -VITMTA PO; -WELL75TA; -ZYVO100T PO; -[UNRECOGNIZED DRUG - OTHER]; -celexa OR; -depakote OR
[2017-11-19] MEDS ORDERED: LIDOCAINE 3.5 % 1ML OPHTH TOPICAL GEL As Ordered ×2 (06:20)
[2017-11-19] MEDS: CEFUROXIME 1MG/0.1ML INTRACAMERAL INJ As Ordered ×4 (06:22→07:49)
[2017-11-19] MEDS: LIDOCAINE 3.5 % 1ML OPHTH TOPICAL GEL OU ×2 (06:30)
[2017-11-19] MEDS: PHENYLEPHRINE 2.5% OPHTH SOL 2ML OD ×2 (06:35)
[2017-11-19] MEDS: OFLOXACIN 0.3 % (OCUFLOX) OPTH SOL 5ML OD ×2 (06:35)
[2017-11-19] MEDS: TROPICAMIDE 1% OPHTH SOLN 2ML OD ×2 (06:35)
[2017-11-19] MEDS: CYCLOPENTOLATE 2% OPHTH SOLN 2ML BTL OD ×2 (06:35)
[2017-11-19] MEDS ORDERED: MIDAZOLAM INJ 2 MG/2 ML VIAL (J2250) As Ordered ×2 (06:58)
[2017-11-19] MEDS ORDERED: fentaNYL 100 MCG/2 ML INJECTION (J3010) As Ordered ×2 (06:58)
[2017-11-19] MEDS ORDERED: PHENYLEPHRINE HCL 10 % OPHTH. SOL 5ML OD ×2 (07:00)
[2017-11-19 07:01] LABS: BEDSIDE GLUCOSE 62 MG/DL (70-105)
[2017-11-19] MEDS ORDERED: PROPARACAINE 0.5% OPHTH SOL 15ML OD ×2 (07:01)
[2017-11-19] MEDS: ACETYLCHOLINE OPHTH SOLN 1% 2ML (MIOCHOL-E) As Ordered ×2 (07:48)
[2017-11-19] MEDS: POVIDONE-IODINE 5% OPHTH PREP SOL 30ML As Ordered ×2 (07:48)
[2017-11-19] MEDS: HEALON DUET (HEALON 10MG/ML 0.55ML & HEALON ENDOCOAT 30MG/ML 0.85ML) As Ordered ×6 (07:48→08:21)
[2017-11-19] MEDS: BSS with VANC/TOB/EPI for EYE CASES IR ×2 (07:48)
[2017-11-19] MEDS: LIDOCAINE 1% SDV 5 ML VIAL As Ordered ×2 (07:48)
[2017-11-19] MEDS: LIDOCAINE 2% W/EPIN INJ 20ML **PRES FREE As Ordered ×2 (07:49)
[2017-11-19] MEDS: TRIAMCINOLONE PRES FR 40 MG/ML 1ML(TRIESENCE)(OR EYE ONLY)(J3300 PER 1MG) As Ordered ×2 (07:49)
[2017-11-19] MEDS: TOBRADEX OPHTH OINT 3.5 GM As Ordered ×2 (08:35)
[2017-11-19 09:07] LABS: BEDSIDE GLUCOSE 66 MG/DL (70-105)
[2017-11-19] MEDS ORDERED: AcetaZOLAMIDE 500 MG ER CAP As Ordered ×2 (09:12)
[2017-11-19] MEDS: AcetaZOLAMIDE 500 MG ER CAP PO ×2 (09:15)
[2017-11-19] MEDS ORDERED: LR 1,000 ML IV ×2 (09:15)
[2017-11-19] MEDS ORDERED: ONDANSETRON 4MG/2ML VIAL (J2405) IV ×2 (09:15)
[2017-11-19] MEDS ORDERED: ACETAMINOPHEN TAB 650MG DOSE (2X325MG) PO ×2 (09:15)
[2017-11-19] MEDS ORDERED: KETOROLAC 0.5% OPHTH SOLN OD ×2 (09:15)
[2017-11-19] MEDS ORDERED: TRIMETHOBENZAMIDE 300 MG CAP PO ×2 (09:15)
[2017-11-19 09:47] LABS: BEDSIDE GLUCOSE 158 MG/DL (70-105)
== END 2017-11-19 09:40 | disposition home or self-care (01) ==
LOC: M SDC 06:00
DX: T85.22XA Displacement of intraocular lens, initial encounter (principal); Y77.2 Prosthetic and other implants, materials and accessory ophthalmic devices associated with adverse incidents; H57.03 Miosis; I11.9 Hypertensive heart disease without heart failure; E10.9 Type 1 diabetes mellitus without complications; E78.5 Hyperlipidemia, unspecified; I25.10 Atherosclerotic heart disease of native coronary artery without angina pectoris; F31.9 Bipolar disorder, unspecified; F10.20 Alcohol dependence, uncomplicated; I25.2 Old myocardial infarction; Z98.84 Bariatric surgery status; Z79.899 Other long term (current) drug therapy; Z79.82 Long term (current) use of aspirin; F17.210 Nicotine dependence, cigarettes, uncomplicated; Z88.5 Allergy status to narcotic agent; Z88.8 Allergy status to other drugs, medicaments and biological substances
CPT/HCPCS: 66825

== ENCOUNTER → 2017-12-03 | Outpatient (REF) | payer MEDICARE, MEDICAID ==
[2017-12-03 16:54] LABS: BASO # 0.1 10^3/uL (0.0-0.2); EOS # 0.6 10^3/uL (0.0-0.50); EOS % 9.5 % (0.0-3.0); HEMATOCRIT 40.1 % (42.0-52.0); HEMOGLOBIN 13.5 g/dl (13.5-17.5); IMMATURE GRANULOCYTE % 0.2 % (0-3.0); LYMPH # 1.8 10^3/uL (1.5-4.5); MEAN CORPUSCULAR HEMOGLOBIN 30.7 pg (27.0-33.0); MEAN CORPUSCULAR HGB CONC 33.7 g/dl (32.0-36.5); MEAN CORPUSCULAR VOLUME 91.1 fl (80.0-96.0); MONO # 0.4 10^3/uL (0.0-0.8); MONO % 7.5 % (0.0-5.0); NEUTROPHILS # 2.9 10^3/uL (1.8-7.7); NEUTROPHILS % 50.8 % (36.0-66.0); PLATELET COUNT, AUTOMATED 255 10^3/uL (150-450); RED CELL DISTRIBUTION WIDTH 12.6 % (11.5-14.5); WHITE BLOOD COUNT 5.8 10^3/uL (4.0-10.0)
[2017-12-03 17:20] LABS: ALBUMIN 3.3 GM/DL (3.2-5.2); ALBUMIN/GLOBULIN RATIO 1.14 (1.00-1.93); ALKALINE PHOSPHATASE 105 U/L (45-117); ALT/SGPT 37 U/L (12-78); ANION GAP 5 MEQ/L (8-16); AST/SGOT 26 U/L (7-37); BILIRUBIN,TOTAL 0.2 MG/DL (0.2-1.0); BLOOD UREA NITROGEN 13 MG/DL (7-18); CALCIUM LEVEL 8.5 MG/DL (8.5-10.1); CARBON DIOXIDE LEVEL 31 MEQ/L (21-32); CHLORIDE LEVEL 109 MEQ/L (98-107); CREATININE FOR GFR 0.79 MG/DL (0.70-1.30); GAMMA GLUTAMYLTRANSPEPTIDASE 87 U/L (15-85); GLOMERULAR FILTRATION RATE > 60.0 (>60); GLUCOSE, FASTING 100 MG/DL (70-100); POTASSIUM SERUM 3.8 MEQ/L (3.5-5.1); SODIUM LEVEL 145 MEQ/L (136-145); TOTAL PROTEIN 6.2 GM/DL (6.4-8.2)
== END ==
LOC: M SFHCCAPE 07:11
DX: I10 Essential (primary) hypertension (principal); E10.9 Type 1 diabetes mellitus without complications
CPT/HCPCS: 82977

== ENCOUNTER 2017-12-25 21:12 | Emergency (ER) | payer MEDICARE, MEDICAID ==
[2017-12-25 21:42] LABS: BEDSIDE GLUCOSE 91 MG/DL (70-105)
[2017-12-25] MEDS: LORazepam 2 MG/ML VIAL (J2060) IV (21:49)
[2017-12-25] MEDS ORDERED: DEXTROSE 50% 50 ML SYRINGE As Ordered (23:17)
[2017-12-25] MEDS: DEXTROSE 50% 50 ML SYRINGE IV (23:20)
[2017-12-25 23:22] LABS: HEMATOCRIT 35.7 % (42.0-52.0); MEAN CORPUSCULAR HEMOGLOBIN 29.8 pg (27.0-33.0); MEAN CORPUSCULAR HGB CONC 33.6 g/dl (32.0-36.5); MEAN CORPUSCULAR VOLUME 88.6 fl (80.0-96.0); PLATELET COUNT, AUTOMATED 249 10^3/uL (150-450); RED BLOOD COUNT 4.03 10^6/uL (4.30-6.10); RED CELL DISTRIBUTION WIDTH 12.7 % (11.5-14.5); WHITE BLOOD COUNT 3.8 10^3/uL (4.0-10.0)
[2017-12-25 23:23] LABS: BEDSIDE GLUCOSE 38 MG/DL (70-105)
[2017-12-25 23:29] LABS: ANION GAP 11 MEQ/L (8-16); BLOOD UREA NITROGEN 7 MG/DL (7-18); CALCIUM LEVEL 8.5 MG/DL (8.5-10.1); CARBON DIOXIDE LEVEL 24 MEQ/L (21-32); CHLORIDE LEVEL 107 MEQ/L (98-107); CREATININE FOR GFR 0.81 MG/DL (0.70-1.30); GLOMERULAR FILTRATION RATE > 60.0 (>60); GLUCOSE, FASTING 115 MG/DL (70-100); POTASSIUM SERUM 3.3 MEQ/L (3.5-5.1); SODIUM LEVEL 142 MEQ/L (136-145)
[2017-12-25 23:50] LABS: BEDSIDE GLUCOSE 244 MG/DL (70-105)
[2017-12-25 23:51] LABS: ESTIMATED AVERAGE GLUCOSE 232 MG/DL (60-110); HEMOGLOBIN A1c 9.7 %
[2017-12-26 00:07] LABS: ETHYL ALCOHOL (ETHANOL) 0.015 % (0.000-0.010)
[2017-12-26 00:50] LABS: BEDSIDE GLUCOSE 177 MG/DL (70-105)
[2017-12-26] MEDS: POTASSIUM CHLORIDE 10 MEQ SR TABLET PO (00:58)
[2017-12-26] MEDS: rOPINIRole 2MG TAB PO (01:15)
[2017-12-26 01:48] LABS: BEDSIDE GLUCOSE 288 MG/DL (70-105)
== END 2017-12-26 02:57 | disposition home or self-care (01) ==
LOC: M ED 12-26 02:57
DX: E10.641 Type 1 diabetes mellitus with hypoglycemia with coma (principal); G25.81 Restless legs syndrome; F41.1 Generalized anxiety disorder; I25.10 Atherosclerotic heart disease of native coronary artery without angina pectoris; I10 Essential (primary) hypertension; F31.9 Bipolar disorder, unspecified; F41.9 Anxiety disorder, unspecified; F10.10 Alcohol abuse, uncomplicated; Z79.4 Long term (current) use of insulin; Z79.899 Other long term (current) drug therapy; Z88.5 Allergy status to narcotic agent; Z88.8 Allergy status to other drugs, medicaments and biological substances
CPT/HCPCS: J2060

== ENCOUNTER 2018-01-30 22:22 | Emergency (ER) | payer MEDICARE, MEDICAID ==
[2018-01-30] MEDS: LORazepam 2 MG/ML VIAL (J2060) IV ×2 (23:07→23:54)
[2018-01-30 23:14] LABS: BASO # 0.1 10^3/uL (0.0-0.2); BASO % 2.1 % (0.0-1.0); EOS # 0.5 10^3/uL (0.0-0.50); EOS % 11.9 % (0.0-3.0); HEMATOCRIT 34.3 % (42.0-52.0); HEMOGLOBIN 11.6 g/dl (13.5-17.5); IMMATURE GRANULOCYTE % 0.3 % (0-3.0); LYMPH # 1.6 10^3/uL (1.5-4.5); LYMPH % 41.7 % (24.0-44.0); MEAN CORPUSCULAR HEMOGLOBIN 30.1 pg (27.0-33.0); MEAN CORPUSCULAR HGB CONC 33.8 g/dl (32.0-36.5); MEAN CORPUSCULAR VOLUME 88.9 fl (80.0-96.0); MONO # 0.3 10^3/uL (0.0-0.8); MONO % 8.8 % (0.0-5.0); NEUTROPHILS # 1.4 10^3/uL (1.8-7.7); NEUTROPHILS % 35.2 % (36.0-66.0); PLATELET COUNT, AUTOMATED 302 10^3/uL (150-450); RED BLOOD COUNT 3.86 10^6/uL (4.30-6.10); RED CELL DISTRIBUTION WIDTH 15.2 % (11.5-14.5); WHITE BLOOD COUNT 3.9 10^3/uL (4.0-10.0)
[2018-01-30 23:16] LABS: VENOUS BASE EXCESS 2.1 (-2.0-2.0); VENOUS HCO3 26.2 MEQ/L (23.0-27.0); VENOUS O2 SATURATION 98.4 % (60.0-80.0); VENOUS PARTIAL PRESSURE CO2 38.9 mmHg (38.0-50.0); VENOUS PH 7.446 UNITS (7.330-7.430); VENOUS STANDARD HCO3 26.4 MEQ/L; VENOUS TOTAL CO2 27.4 MEQ/L (24.0-28.0)
[2018-01-30 23:52] LABS: ANION GAP 7 MEQ/L (8-16); BLOOD UREA NITROGEN 13 MG/DL (7-18); CALCIUM LEVEL 7.8 MG/DL (8.5-10.1); CARBON DIOXIDE LEVEL 26 MEQ/L (21-32); CHLORIDE LEVEL 109 MEQ/L (98-107); CK-MB VALUE MASS 4.5 NG/ML (<3.6); CPK CREATINE PHOSPHOKINASE 209 U/L (39-308); CREATININE FOR GFR 0.79 MG/DL (0.70-1.30); ETHYL ALCOHOL (ETHANOL) 0.006 % (0.000-0.010); GLOMERULAR FILTRATION RATE > 60.0 (>60); GLUCOSE, FASTING 151 MG/DL (70-100); MB/CK RELATIVE INDEX 2.15 (< OR =4); POTASSIUM SERUM 4.2 MEQ/L (3.5-5.1); SODIUM LEVEL 142 MEQ/L (136-145); TROPONIN I < 0.02 NG/ML (< 0.10)
[2018-01-31] MEDS ORDERED: MORPHINE 2 MG/ML 1ML SYRINGE (J2270) As Ordered (00:45)
[2018-01-31 00:54] LABS: IONIZED CALCIUM 4.3 MG/DL (4.5-5.3)
[2018-01-31] MEDS: MORPHINE 2 MG/ML 1ML SYRINGE (J2270) IV (00:54)
[2018-01-31] MEDS: CALCIUM CARBONATE 500 MG CHEW U/D PO (01:13)
[2018-01-31] MEDS: OXAZEPAM 10 MG CAP PO (01:54)
== END 2018-01-31 01:55 | disposition home or self-care (01) ==
LOC: M ED 01-31 01:55
DX: E83.51 Hypocalcemia (principal); F41.0 Panic disorder [episodic paroxysmal anxiety]; E11.9 Type 2 diabetes mellitus without complications; I10 Essential (primary) hypertension; Z72.0 Tobacco use; Z79.82 Long term (current) use of aspirin; Z79.4 Long term (current) use of insulin; Z79.899 Other long term (current) drug therapy; Z88.5 Allergy status to narcotic agent; Z88.8 Allergy status to other drugs, medicaments and biological substances
CPT/HCPCS: J2060

== ENCOUNTER → 2018-02-12 | Outpatient (REF) | payer MEDICARE, MEDICAID ==
[2018-02-12 16:52] LABS: BASO # 0.1 10^3/uL (0.0-0.2); BASO % 1.7 % (0.0-1.0); EOS # 0.3 10^3/uL (0.0-0.50); EOS % 9.3 % (0.0-3.0); HEMATOCRIT 38.7 % (42.0-52.0); HEMOGLOBIN 12.8 g/dl (13.5-17.5); LYMPH # 1.2 10^3/uL (1.5-4.5); LYMPH % 32.6 % (24.0-44.0); MEAN CORPUSCULAR HEMOGLOBIN 30.4 pg (27.0-33.0); MEAN CORPUSCULAR HGB CONC 33.1 g/dl (32.0-36.5); MEAN CORPUSCULAR VOLUME 91.9 fl (80.0-96.0); MONO # 0.3 10^3/uL (0.0-0.8); MONO % 7.3 % (0.0-5.0); NEUTROPHILS # 1.8 10^3/uL (1.8-7.7); NEUTROPHILS % 49.1 % (36.0-66.0); PLATELET COUNT, AUTOMATED 235 10^3/uL (150-450); RED BLOOD COUNT 4.21 10^6/uL (4.30-6.10); RED CELL DISTRIBUTION WIDTH 14.4 % (11.5-14.5); WHITE BLOOD COUNT 3.6 10^3/uL (4.0-10.0)
[2018-02-12 17:04] LABS: ESTIMATED AVERAGE GLUCOSE 209 MG/DL (60-110); HEMOGLOBIN A1c 8.9 %
[2018-02-12 17:07] LABS: VITAMIN B12 LEVEL 706 PG/ML
[2018-02-12 17:08] LABS: FOLATE 17.9 NG/ML
[2018-02-12 17:18] LABS: ALBUMIN 3.1 GM/DL (3.2-5.2); ALBUMIN/GLOBULIN RATIO 1.11 (1.00-1.93); ALKALINE PHOSPHATASE 93 U/L (45-117); ALT/SGPT 53 U/L (12-78); ANION GAP 6 MEQ/L (8-16); AST/SGOT 30 U/L (7-37); BILIRUBIN,TOTAL 0.3 MG/DL (0.2-1.0); BLOOD UREA NITROGEN 11 MG/DL (7-18); CALCIUM LEVEL 8.2 MG/DL (8.5-10.1); CARBON DIOXIDE LEVEL 30 MEQ/L (21-32); CHLORIDE LEVEL 107 MEQ/L (98-107); CREATININE FOR GFR 0.76 MG/DL (0.70-1.30); GLOMERULAR FILTRATION RATE > 60.0 (>60); GLUCOSE, FASTING 197 MG/DL (70-100); LIPASE 121 U/L (73-393); SODIUM LEVEL 143 MEQ/L (136-145); TOTAL PROTEIN 5.9 GM/DL (6.4-8.2)
[2018-02-12 18:13] LABS: TOTAL 25(OH) VITAMIN D 27.5 NG/ML (30.0-100.0)
[2018-02-12 20:00] LABS: CONTROL LINE MONO RF C INT CTR LINE PRESENT; MONO REFLEX EBV COMP NEGATIVE (NEGATIVE)
[2018-02-15 00:09] LABS: EBV AB TO NUCLEAR ANTIGEN 39.6 U/mL (0.0-17.9); EBV VIRAL CAPSID AG IgM <36.0 U/mL (0.0-35.9); Lyme Disease IgG/IgM Antibodie <0.91 ISR (0.00-0.90); Lyme Disease IgM Ab Quantitati <0.80 index (0.00-0.79)
== END ==
LOC: M SFHCCAPE 07:44
DX: E11.8 Type 2 diabetes mellitus with unspecified complications (principal); I10 Essential (primary) hypertension; R53.83 Other fatigue; F10.10 Alcohol abuse, uncomplicated; Z79.899 Other long term (current) drug therapy
CPT/HCPCS: 82746

== ENCOUNTER → 2018-05-13 | Outpatient (REF) | payer MEDICARE, MEDICAID ==
[2018-05-13 17:29] LABS: BASO # 0.1 10^3/uL (0.0-0.2); BASO % 1.5 % (0.0-1.0); EOS # 0.6 10^3/uL (0.0-0.50); EOS % 11.9 % (0.0-3.0); HEMATOCRIT 38.5 % (42.0-52.0); HEMOGLOBIN 12.6 g/dl (13.5-17.5); LYMPH # 1.7 10^3/uL (1.5-4.5); LYMPH % 34.4 % (24.0-44.0); MEAN CORPUSCULAR HEMOGLOBIN 27.9 pg (27.0-33.0); MEAN CORPUSCULAR HGB CONC 32.7 g/dl (32.0-36.5); MEAN CORPUSCULAR VOLUME 85.2 fl (80.0-96.0); MONO # 0.4 10^3/uL (0.0-0.8); NEUTROPHILS # 2.1 10^3/uL (1.8-7.7); NEUTROPHILS % 43.2 % (36.0-66.0); PLATELET COUNT, AUTOMATED 329 10^3/uL (150-450); RED BLOOD COUNT 4.52 10^6/uL (4.30-6.10); RED CELL DISTRIBUTION WIDTH 14.9 % (11.5-14.5); WHITE BLOOD COUNT 4.8 10^3/uL (4.0-10.0)
[2018-05-13 17:41] LABS: ESTIMATED AVERAGE GLUCOSE 180 MG/DL (60-110); HEMOGLOBIN A1c 7.9 %
[2018-05-13 18:13] LABS: ALBUMIN 3.7 GM/DL (3.2-5.2); ALBUMIN/GLOBULIN RATIO 1.23 (1.00-1.93); ALKALINE PHOSPHATASE 123 U/L (45-117); ALT/SGPT 27 U/L (12-78); ANION GAP 7 MEQ/L (8-16); AST/SGOT 17 U/L (7-37); BILIRUBIN,TOTAL 0.4 MG/DL (0.2-1.0); BLOOD UREA NITROGEN 11 MG/DL (7-18); C REACTIVE PROTEIN QUANTITATIV < 0.30 MG/DL (0.00-0.30); CALCIUM LEVEL 9.3 MG/DL (8.5-10.1); CARBON DIOXIDE LEVEL 29 MEQ/L (21-32); CHLORIDE LEVEL 107 MEQ/L (98-107); CREATININE FOR GFR 0.76 MG/DL (0.70-1.30); GLOMERULAR FILTRATION RATE > 60.0 (>60); GLUCOSE, FASTING 35 MG/DL (70-100); SODIUM LEVEL 143 MEQ/L (136-145); TOTAL PROTEIN 6.7 GM/DL (6.4-8.2)
[2018-05-13 18:17] LABS: ERYTHROCYTE SEDIMENTATION RATE 11 mm/hr (0-15)
[2018-05-16 00:07] LABS: ANTINUCLEAR ANTIBODIES DIRECT Negative (Negative); Lyme Disease IgG/IgM Antibodie <0.91 ISR (0.00-0.90); Lyme Disease IgM Ab Quantitati <0.80 index (0.00-0.79)
[2018-05-16 00:07] LABS: CYCLIC CITRULLINATED PEPTIDE 6 units (0-19)
== END ==
LOC: M SFHCCAPE 10:55
DX: M25.50 Pain in unspecified joint (principal); E11.8 Type 2 diabetes mellitus with unspecified complications
CPT/HCPCS: 84443

== ENCOUNTER → 2018-06-18 | Outpatient (REF) | payer MEDICARE, MEDICAID ==
[~2018-06-18] MED LIST changes: +/ATOR40TA; +/ATOR40TA OR; +/AUGM875TA; +/FAMO2TA PO; +/INSUREG SC; +/LOR25TA PO; +/METO25TAB PO; +/QUET10TA OR; +ABIL10TA OR; +ABIL10TA9 PO; +ABIL5TAB OR; +ACET500C; +ACET65TA; +ACET65TA OR; -ACETAMINOPHEN 325 MG TAB PO; +AMLO5TAB OR; +ARIP1TAB PO; +ASPI325T; +ASPI325T OR; +ASPI325T PO; +ASPI81CH3 PO; +ATARAX OR; +ATEN25TA; +ATEN25TA OR; +ATIV0.5T OR; +ATIV1TAB2 OR; +ATOR1TAB21 PO; +ATOR40TA75 PO; +AUGM875T28 PO; +BACT800T5 PO; +BENA20TA2 OR; +BUPROPION HCL PO; +CELE20TA; +CELE40TA OR; +CIPR25SS OR; +CITA20TA2 PO; +CITA20TA4 PO; +DEPA500T; +DEPA500T2 OR; +DEPAKOTE ER PO; +DEPAKOTE PO; +DIOV160T5; +DIOV160T5 OR; +DIOV320T; +DRIS50003 PO; +EFFE75CA2 PO; +EFFE75CA75 OR; +FLON0.05; +FOLI1TAB5 PO; +GLUCAGEN SC; +GLUCOSE OR; +HIBI4LIQ TOP; +HUMA50IN SQ; +HUMULIN N SC; +HYDR50TA70 PO; +HYDR50TA8 OR; +INSUH10VL SC; +INSULANT; +INSULANT SC; +INSULIN LANTUS SC; +IRBE75TA5 PO; +KEFL500C17 PO; +LAMI25TA OR; +LAMI25TA PO; +LAMO25TA2 PO; +LANTINJ4 SC; +LANTUS; +LANTUS SC; +LANTUS U SC; +LEVA750T7 PO; +LIPITOR PO; +LOSA25TA33 PO; +LOTREL PO; +LUNE3TAB36 PO; +MECL-86 PO; +MICR10CA PO; +MILKSUS OR; +MUPI2OI EXT; +NALT50TA4 PO; +NIACIN OR; +NIACPOW39 PO; +NIAS10003; +NIAS500T2 OR; +NOVOINJ3; +NOVOINJ3 SC; +NOVOLOG SC; +NOVOLOG100 MG/ML; +NOVOLOG100 MG/ML SC; +OXAZ10CA3 PO; +OXAZ15CA4 PO; +PANT40TA3 PO; +PATIENT COMMENTS; +PERC7.5T12 PO; +PERCOCET PO; +PSEU60TA2 OR; +QUET1TAB8 PO; +REME15TA PO; +REQU1TAB16 PO; +ROPI1TAB PO; +SERO400T OR; +SEROQUEL PO; -SLF 3 ML SYR IV; +THIA100TA PO; +TRAZ100T OR; +TRAZ150T OR; +TYLE325T5 PO; +VITA100072 PO; +VITA30004 PO; +VITA500047 PO; +VITMTA PO; +WELL75TA; +ZYVO1TAB PO; +[UNRECOGNIZED DRUG - OTHER]; +celexa OR; +depakote OR
[2018-06-18 16:34] LABS: ALBUMIN 3.5 GM/DL (3.2-5.2); ALT/SGPT 69 U/L (12-78); BILIRUBIN,TOTAL 0.5 MG/DL (0.2-1.0); BLOOD UREA NITROGEN 19 MG/DL (7-18); CALCIUM LEVEL 8.4 MG/DL (8.5-10.1); CARBON DIOXIDE LEVEL 30 MEQ/L (21-32); CHLORIDE LEVEL 101 MEQ/L (98-107); CREATININE FOR GFR 1.05 MG/DL (0.70-1.30); FERRITIN 10 NG/ML (26-388); GLOMERULAR FILTRATION RATE > 60.0 (>60); GLUCOSE, FASTING 256 MG/DL (70-100); IRON (FE) 109 UG/DL (65-175); PERCENT SATURATION 24.6 % (19.7-50.0); POTASSIUM SERUM 3.9 MEQ/L (3.5-5.1); SODIUM LEVEL 138 MEQ/L (136-145); TOTAL IRON BINDING CAPACITY 443 UG/DL (250-450); TOTAL PROTEIN 6.7 GM/DL (6.4-8.2)
[2018-06-18 16:42] LABS: BASO # 0.1 10^3/uL (0.0-0.2); BASO % 1.5 % (0.0-1.0); EOS # 0.2 10^3/uL (0.0-0.50); HEMATOCRIT 38.4 % (42.0-52.0); HEMOGLOBIN 12.4 g/dl (13.5-17.5); LYMPH # 0.9 10^3/uL (1.5-4.5); LYMPH % 22.6 % (24.0-44.0); MEAN CORPUSCULAR HEMOGLOBIN 27.4 pg (27.0-33.0); MEAN CORPUSCULAR HGB CONC 32.3 g/dl (32.0-36.5); MEAN CORPUSCULAR VOLUME 84.8 fl (80.0-96.0); MONO # 0.4 10^3/uL (0.0-0.8); MONO % 9.3 % (0.0-5.0); NEUTROPHILS # 2.4 10^3/uL (1.8-7.7); NEUTROPHILS % 60.6 % (36.0-66.0); PLATELET COUNT, AUTOMATED 279 10^3/uL (150-450); RED BLOOD COUNT 4.53 10^6/uL (4.30-6.10)
[2018-06-18 17:01] LABS: VITAMIN B12 LEVEL 758 PG/ML
[2018-06-18 17:02] LABS: FOLATE 19.3 NG/ML
[2018-06-25 10:12] LABS: TESTOSTERONE %FREE+WEAKLY BOUN 5.1 % (9.0-46.0); TESTOSTERONE FREE+WEAKLY BOUND 39.3 ng/dL (40.0-250.0); TESTOSTERONE TOTAL 771 ng/dL (264-916)
== END ==
LOC: M SFHCCAPE 10:00
PROVIDERS: ATTEND Physician Assistant
DX: D64.9 Anemia, unspecified (principal); N52.9 Male erectile dysfunction, unspecified
CPT/HCPCS: 36415; 80053; 82607; 82728; 82746; 83550; 84410; 85025; G0463

== ENCOUNTER 2018-06-22 23:21 | Emergency (ER) | payer MEDICARE, MEDICAID ==
[2018-06-22] MEDS ORDERED: MIDAZOLAM INJ 5 MG/ML VIAL (J2250) As Ordered (23:29)
[2018-06-22] MEDS: MIDAZOLAM INJ 2 MG/2 ML VIAL (J2250) IV (23:30)
[2018-06-22 23:41] LABS: BEDSIDE GLUCOSE 549 MG/DL (70-105)
[2018-06-22 23:44] LABS: BASO # 0.1 10^3/uL (0.0-0.2); BASO % 1.5 % (0.0-1.0); EOS # 0.3 10^3/uL (0.0-0.50); EOS % 6.9 % (0.0-3.0); HEMATOCRIT 35.2 % (42.0-52.0); HEMOGLOBIN 11.8 g/dl (13.5-17.5); LYMPH # 1.6 10^3/uL (1.5-4.5); LYMPH % 33.3 % (24.0-44.0); MEAN CORPUSCULAR HEMOGLOBIN 28.4 pg (27.0-33.0); MEAN CORPUSCULAR HGB CONC 33.5 g/dl (32.0-36.5); MEAN CORPUSCULAR VOLUME 84.6 fl (80.0-96.0); MONO # 0.4 10^3/uL (0.0-0.8); MONO % 7.7 % (0.0-5.0); NEUTROPHILS # 2.4 10^3/uL (1.8-7.7); NEUTROPHILS % 50.6 % (36.0-66.0); PLATELET COUNT, AUTOMATED 287 10^3/uL (150-450); RED BLOOD COUNT 4.16 10^6/uL (4.30-6.10); WHITE BLOOD COUNT 4.7 10^3/uL (4.0-10.0)
[2018-06-22] MEDS: NS 1,000 ML IV (23:48)
[2018-06-23 00:21] LABS: ANION GAP 13 MEQ/L (8-16); AST/SGOT 40 U/L (7-37); BLOOD UREA NITROGEN 20 MG/DL (7-18); CALCIUM LEVEL 8.2 MG/DL (8.5-10.1); CARBON DIOXIDE LEVEL 23 MEQ/L (21-32); CHLORIDE LEVEL 97 MEQ/L (98-107); CREATININE FOR GFR 1.06 MG/DL (0.70-1.30); GLOMERULAR FILTRATION RATE > 60.0 (>60); GLUCOSE, FASTING 561 MG/DL (70-100); POTASSIUM SERUM 4.9 MEQ/L (3.5-5.1); SODIUM LEVEL 133 MEQ/L (136-145)
[2018-06-23 00:22] LABS: ACETAMINOPHEN LEVEL < 2.0 UG/ML (10.0-30.0); ALBUMIN 3.2 GM/DL (3.2-5.2); ALBUMIN/GLOBULIN RATIO 0.97 (1.00-1.93); ALKALINE PHOSPHATASE 122 U/L (45-117); ALT/SGPT 45 U/L (12-78); BILIRUBIN,DIRECT < 0.1 MG/DL (0.0-0.2); BILIRUBIN,TOTAL 0.2 MG/DL (0.2-1.0); CPK CREATINE PHOSPHOKINASE 157 U/L (39-308); ETHYL ALCOHOL (ETHANOL) 0.166 % (0.000-0.010); MB/CK RELATIVE INDEX 2.23 (< OR =4); SALICYLATE LEVEL 4.6 MG/DL (5.0-30.0); TOTAL PROTEIN 6.5 GM/DL (6.4-8.2); TROPONIN I < 0.02 NG/ML (< 0.10)
[2018-06-23] MEDS: MIDAZOLAM INJ 2 MG/2 ML VIAL (J2250) IV ×2 (00:24→01:38)
[2018-06-23] MEDS: HumuLIN R (REGULAR) INSULIN (NovoLIN R) **100U/ML** PER UNIT IV ×2 (00:27→02:02)
[2018-06-23 00:35] LABS: KETONE, URINE AUTO RFX TRACE mg/dL (NEGATIVE); LEUKOCYTE ESTERASE UR AUTO RFX NEGATIVE (NEGATIVE); NITRITE, URINE AUTO RFX NEGATIVE (NEGATIVE); RBC, URINE AUTO RFX 1 /HPF (0-3); SPECIFIC GRAVITY UR AUTO RFX 1.017 (1.002-1.035); SQUAM EPITHELIAL CELL UR AURFX 0 /HPF (0-6); WBC, URINE AUTO RFX 0 /HPF (0-3)
[2018-06-23 00:49] LABS: AMPHETAMINES LEVEL URINE NEGATIVE (NEGATIVE); BARBITURATES URINE NEGATIVE (NEGATIVE); BENZODIAZEPINES URINE POSITIVE (NEGATIVE); CANNABINOIDS URINE NEGATIVE (NEGATIVE); COCAINE METABOLITE URINE NEGATIVE (NEGATIVE); METHADONE URINE NEGATIVE (NEGATIVE); OPIATES URINE NEGATIVE (NEGATIVE); PHENCYCLIDINE URINE NEGATIVE (NEGATIVE)
[2018-06-23 01:39] LABS: BEDSIDE GLUCOSE 342 MG/DL (70-105)
[2018-06-23] MEDS: LORazepam 2 MG/ML VIAL (J2060) IM (02:18)
[2018-06-23] MEDS: HALOPERIDOL 5 MG/ML VIAL (J1630) IM ×2 (02:19→02:33)
== END 2018-06-23 04:30 | disposition home or self-care (01) ==
LOC: M ED 23:21
DX: F10.229 Alcohol dependence with intoxication, unspecified (principal); Y90.0 Blood alcohol level of less than 20 mg/100 ml; E11.9 Type 2 diabetes mellitus without complications; I10 Essential (primary) hypertension; I25.10 Atherosclerotic heart disease of native coronary artery without angina pectoris; E78.5 Hyperlipidemia, unspecified; F31.9 Bipolar disorder, unspecified; Z98.84 Bariatric surgery status; Z79.82 Long term (current) use of aspirin; Z79.899 Other long term (current) drug therapy; Z88.5 Allergy status to narcotic agent; Z88.8 Allergy status to other drugs, medicaments and biological substances
CPT/HCPCS: J1630

== ENCOUNTER → 2018-07-30 | Outpatient (CLI) | payer MEDICARE, MEDICAID ==
[~2018-07-30] MED LIST changes: +FOLI1TAB11 PO; -FOLI1TAB5 PO; -LAMO25TA2 PO; +LAMO25TA4 PO; +LOSA25TA14 PO; -LOSA25TA33 PO
== END ==
LOC: M OUTALCOH 08:22
PROVIDERS: ATTEND Psychiatry & Neurology Psychiatry
DX: F10.20 Alcohol dependence, uncomplicated (principal)

== ENCOUNTER 2018-08-17 20:21 | Emergency (ER) | payer MEDICAID, MEDICARE ==
[~2018-08-17] VITALS: Ht 177.8 cm; Wt 81.8 kg
[2018-08-17] MEDS ORDERED: PHENobarbital 30 MG TAB PO ONE (21:45)
[2018-08-17 22:03] VITALS: BP 130/71
== END 2018-08-17 22:04 | disposition home or self-care (01) ==
LOC: M ED 20:21
DX: F41.9 Anxiety disorder, unspecified (principal); F10.20 Alcohol dependence, uncomplicated; E11.9 Type 2 diabetes mellitus without complications; I10 Essential (primary) hypertension; K21.9 Gastro-esophageal reflux disease without esophagitis; Z79.82 Long term (current) use of aspirin; Z79.4 Long term (current) use of insulin; Z79.899 Other long term (current) drug therapy; Z88.5 Allergy status to narcotic agent; Z88.8 Allergy status to other drugs, medicaments and biological substances

== ENCOUNTER 2018-08-19 15:00 | Outpatient (RCR) | payer MEDICARE, MEDICAID | END 2018-08-20 | LOC: M OUTALCOH 15:00 | PROVIDERS: ATTEND Psychiatry & Neurology Psychiatry | DX: F10.20 Alcohol dependence, uncomplicated (principal); F17.200 Nicotine dependence, unspecified, uncomplicated ==

== ENCOUNTER 2018-08-27 21:26 | Inpatient (IN) | payer MEDICAID, MEDICARE ==
[~2018-08-27] VITALS: Ht 177.8 cm; Wt 83.3 kg
[~2018-08-27 21:26] MED LIST changes: +rOPINIRole 1MG TAB PO ONE
[2018-08-27] MEDS ORDERED: LORazepam 2 MG/ML VIAL (J2060) IM STA (22:38)
[2018-08-27 23:06] LABS: HEMATOCRIT 34.3 % (42.0-52.0); MEAN CORPUSCULAR HEMOGLOBIN 26.6 pg (27.0-33.0); MEAN CORPUSCULAR HGB CONC 32.1 g/dl (32.0-36.5); MEAN CORPUSCULAR VOLUME 82.9 fl (80.0-96.0); PLATELET COUNT, AUTOMATED 403 10^3/uL (150-450); RED BLOOD COUNT 4.14 10^6/uL (4.30-6.10); WHITE BLOOD COUNT 4.3 10^3/uL (4.0-10.0)
[2018-08-27 23:27] LABS: AMPHETAMINES LEVEL URINE NEGATIVE (NEGATIVE); BARBITURATES URINE NEGATIVE (NEGATIVE); BENZODIAZEPINES URINE NEGATIVE (NEGATIVE); CANNABINOIDS URINE NEGATIVE (NEGATIVE); COCAINE METABOLITE URINE NEGATIVE (NEGATIVE); METHADONE URINE NEGATIVE (NEGATIVE); OPIATES URINE NEGATIVE (NEGATIVE); PHENCYCLIDINE URINE NEGATIVE (NEGATIVE)
[2018-08-27 23:37] LABS: ACETAMINOPHEN LEVEL < 2.0 UG/ML (10.0-30.0); ALBUMIN 3.3 GM/DL (3.2-5.2); ALT/SGPT 29 U/L (12-78); BILIRUBIN,DIRECT < 0.1 MG/DL (0.0-0.2); BILIRUBIN,TOTAL 0.2 MG/DL (0.2-1.0); BLOOD UREA NITROGEN 16 MG/DL (7-18); CALCIUM LEVEL 8.4 MG/DL (8.5-10.1); CARBON DIOXIDE LEVEL 24 MEQ/L (21-32); CHLORIDE LEVEL 106 MEQ/L (98-107); CREATININE FOR GFR 0.93 MG/DL (0.70-1.30); ETHYL ALCOHOL (ETHANOL) 0.004 % (0.000-0.010); GLOMERULAR FILTRATION RATE > 60.0 (>60); GLUCOSE, FASTING 278 MG/DL (70-100); POTASSIUM SERUM 4.3 MEQ/L (3.5-5.1); SALICYLATE LEVEL 4.4 MG/DL (5.0-30.0); SODIUM LEVEL 137 MEQ/L (136-145); TOTAL PROTEIN 6.6 GM/DL (6.4-8.2)
[2018-08-28] MEDS ORDERED: MAALOX 30 ML SUSP *UDC PO PRN (00:15)
[2018-08-28] MEDS ORDERED: ACETAMINOPHEN TAB 650MG DOSE (2X325MG) PO PRN (00:15)
[2018-08-28] MEDS ORDERED: MOM 30ML SUSPENSION UDC PO PRN (00:15)
[2018-08-28] MEDS ORDERED: LORazepam 2 MG TAB PO PRN (00:15)
[2018-08-28] MEDS ORDERED: HumuLIN R (REGULAR) INSULIN (NovoLIN R) **100U/ML** PER UNIT SC ONE (00:30)
[2018-08-28] MEDS ORDERED: LORA1TAB12 PO (01:01)
[2018-08-28] MEDS ORDERED: VITA50005 PO (01:01)
[2018-08-28] MEDS ORDERED: ROPI1TAB PO (01:01)
[2018-08-28] MEDS ORDERED: CITA40TA4 PO (01:01)
[2018-08-28] MEDS ORDERED: MECL-68 PO (01:01)
[2018-08-28] MEDS ORDERED: VIVI380I IM (01:01)
[2018-08-28 01:33] VITALS: BP_SYST 129; BP_DIAS 72; BP_DIAS 82
[2018-08-28 06:00] VITALS: BP 134/78
[2018-08-28 06:34] VITALS: BP 134/78
[2018-08-28] MEDS: NICOTINE 21MG/24HR 1 EA TRANSDERMAL TD SCH (08:26)
[2018-08-28] MEDS: FOLIC ACID 1 MG TAB PO SCH (08:27)
[2018-08-28] MEDS: MULTIVITAMINS/MINERALS THERAP 1 TAB PO SCH (08:27)
[2018-08-28] MEDS: THIAMINE 100 MG TAB PO SCH ×2 (08:27→21:25)
[2018-08-28] MEDS ORDERED: DEXTROSE 50% 50 ML SYRINGE IV PRN (09:45)
[2018-08-28] MEDS ORDERED: GLUCAGON FOR INJ 1 MG VIAL (J1610) SC PRN (09:45)
[2018-08-28] MEDS ORDERED: GLUCOSE 4 GM CHEW TABLET PO PRN (09:45)
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
[2018-08-28] MEDS: ASPIRIN 325 MG TAB PO SCH (10:29)
[2018-08-28] MEDS: PANTOPRAZOLE 40MG TAB (PROTONIX) PO SCH (10:29)
[2018-08-28] MEDS: ATORVASTATIN 20 MG TAB PO SCH (10:29)
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
[2018-08-28] MEDS: MUPIROCIN 2% OINT 22 GM TUBE TOP SCH ×2 (11:45→21:26)
[2018-08-28] MEDS ORDERED: CitaloPRAM (CeleXA) 10 MG TABLET PO ONE (11:45)
[2018-08-28] MEDS: IRBESARTAN 150 MG TAB PO SCH (11:46)
[2018-08-28] MEDS: PILL CRUSHER/CUTTER 1 EACH XX PRN (11:47)
[2018-08-28] MEDS: HumaLOG INSULIN (NovoLOG) PER UNIT SC SCH ×3 (11:54→21:25)
[2018-08-28 12:17] LABS: HEMOGLOBIN A1c 11.1 %
[2018-08-28 15:56] VITALS: BP 120/60
[2018-08-28 18:00] VITALS: BP 115/60
[2018-08-28] MEDS: rOPINIRole 1MG TAB PO SCH (21:00)
[2018-08-28] MEDS: LEVEMIR (INSULIN DETEMIR) 1 UNITS/0.01ML SC SCH (21:24)
[2018-08-28 22:00] VITALS: BP 115/60
[2018-08-28] MEDS: hydrOXYzine 50 MG TAB PO PRN (22:31)
[2018-08-29 06:00] VITALS: BP 102/60
[2018-08-29] MEDS: HumaLOG INSULIN (NovoLOG) PER UNIT SC SCH ×4 (07:57→20:51)
[2018-08-29] MEDS: NICOTINE 21MG/24HR 1 EA TRANSDERMAL TD SCH (09:00)
[2018-08-29] MEDS: MUPIROCIN 2% OINT 22 GM TUBE TOP SCH ×2 (09:28→20:52)
[2018-08-29] MEDS: MULTIVITAMINS/MINERALS THERAP 1 TAB PO SCH (09:28)
[2018-08-29] MEDS: ASPIRIN 325 MG TAB PO SCH (09:28)
[2018-08-29] MEDS: FOLIC ACID 1 MG TAB PO SCH (09:28)
[2018-08-29] MEDS: CitaloPRAM (CeleXA) 10 MG TABLET PO SCH (09:28)
[2018-08-29] MEDS: ATORVASTATIN 20 MG TAB PO SCH (09:28)
[2018-08-29] MEDS: PANTOPRAZOLE 40MG TAB (PROTONIX) PO SCH (09:28)
[2018-08-29] MEDS: THIAMINE 100 MG TAB PO SCH ×2 (09:28→20:52)
[2018-08-29] MEDS: IRBESARTAN 150 MG TAB PO SCH (09:31)
[2018-08-29] MEDS: PILL CRUSHER/CUTTER 1 EACH XX PRN (09:31)
[2018-08-29 10:58] VITALS: BP 112/63
[2018-08-29] MEDS: hydrOXYzine 50 MG TAB PO PRN ×2 (11:07→20:53)
[2018-08-29 18:00] VITALS: BP 117/65
[2018-08-29] MEDS: LEVEMIR (INSULIN DETEMIR) 1 UNITS/0.01ML SC SCH (20:52)
[2018-08-29] MEDS: rOPINIRole 1MG TAB PO SCH (20:52)
[2018-08-29] MEDS ORDERED: rOPINIRole 1MG TAB PO SCH (21:00)
[2018-08-30 06:00] VITALS: BP 117/65
[2018-08-30] MEDS: HumaLOG INSULIN (NovoLOG) PER UNIT SC SCH ×4 (06:26→20:54)
[2018-08-30] MEDS: NICOTINE 21MG/24HR 1 EA TRANSDERMAL TD SCH (08:51)
[2018-08-30] MEDS: MULTIVITAMINS/MINERALS THERAP 1 TAB PO SCH (08:54)
[2018-08-30] MEDS: FOLIC ACID 1 MG TAB PO SCH (08:54)
[2018-08-30] MEDS: THIAMINE 100 MG TAB PO SCH ×2 (08:54→20:53)
[2018-08-30] MEDS: PANTOPRAZOLE 40MG TAB (PROTONIX) PO SCH (08:54)
[2018-08-30] MEDS: IRBESARTAN 150 MG TAB PO SCH (08:55)
[2018-08-30] MEDS: MUPIROCIN 2% OINT 22 GM TUBE TOP SCH ×2 (08:55→20:47)
[2018-08-30] MEDS: CitaloPRAM (CeleXA) 10 MG TABLET PO SCH (08:55)
[2018-08-30] MEDS: ATORVASTATIN 20 MG TAB PO SCH (08:55)
[2018-08-30] MEDS: ASPIRIN 325 MG TAB PO SCH (08:55)
[2018-08-30 09:15] VITALS: BP 117/65
[2018-08-30] MEDS ORDERED: MECLIZINE 12.5 MG TAB PO PRN (12:30)
--- NOTE | 2018-08-30 16:59 | MHIPN ---
DATE: 08/29/2018 CHIEF COMPLAINT: Feels better. SUBJECTIVE: Is seen for followup. Indicates has been feeling better, he is somewhat less anxious. Says sleep is essentially unchanged, suggests has restless legs in that they tend to interfere with his sleep. MENTAL STATUS EXAMINATION: Neat, cooperative. There is no agitation. No psychomotor retardation. He is coherent. Affect is somewhat restricted but shows reactivity. Denies any suicidal thoughts or intents. No homicidal ideas or intents. Currently, no evidence of any psychosis. Cognition is grossly intact. Judgment is good. Insight is fair. ASSESSMENT: 1. Generalized anxiety disorder. 2. Alcohol use disorder. 3. History of bipolar type 2 disorder, may need consider that. PLAN: Continue current care, observations. I suggest continuing with the Celexa at the current dose of 30 mg daily, Abilify 5 mg twice a day. He is to be encouraged to participate in activities in the unit. Further recommendations will be made depending on the clinical picture. VITAL SIGNS: These are as listed. Blood pressure 112/63, pulse 96, temperature 98.9.
[2018-08-30 18:00] VITALS: BP 119/68
[2018-08-30] MEDS: rOPINIRole 1MG TAB PO SCH (20:53)
[2018-08-30] MEDS: hydrOXYzine 50 MG TAB PO PRN (20:54)
[2018-08-30] MEDS: LEVEMIR (INSULIN DETEMIR) 1 UNITS/0.01ML SC SCH (20:55)
[2018-08-30 20:56] VITALS: BP 119/68
[2018-08-31] MEDS: HumaLOG INSULIN (NovoLOG) PER UNIT SC SCH ×4 (06:07→21:17)
[2018-08-31 06:19] VITALS: BP 119/71
--- NOTE | 2018-08-31 08:20 | MHIPN ---
DATE: 08/30/2018 CHIEF COMPLAINT: Feels better. SUBJECTIVE: Seen for followup. He was seen in the presence of staff. Says feels a bit better, somewhat less anxious, but that he had trouble with sleep, says in particular gets vertigo at night, that tends to bother him, says he got up and walked about a bit, it seemed to help. Says he uses meclizine as needed, was using it until he started drinking again, it was prescribed by a clinic at [facility]. Denies any cravings. MENTAL STATUS EXAMINATION: He is neat. He is cooperative. Sitting up in bed. No agitation. No psychomotor retardation. Coherent. Affect restricted, but shows reactivity. He denies any suicidal thoughts or intents. Does not appear to be internally preoccupied at present. Currently no evidence of any psychosis. Cognition is grossly intact. Judgment fair. Insight is fair. ASSESSMENT: Generalized anxiety disorder. Bipolar type 2 disorder. Alcohol use disorder. PLAN: Continue current care, including the Abilify, and the Celexa. Uses an antidepressant with caution, given history of bipolar illness. It may well be useful for chronic anxiety however. Will look at prescribing meclizine as needed in the short term. He is to be involved in activities in the unit as tolerated. VITAL SIGNS: Blood pressure 117/65. Pulse 81. Temperature 98.6. He will see the psychiatrist as well as the treatment team tomorrow.
[2018-08-31] MEDS: NICOTINE 21MG/24HR 1 EA TRANSDERMAL TD SCH (08:42)
[2018-08-31] MEDS: FOLIC ACID 1 MG TAB PO SCH (08:45)
[2018-08-31] MEDS: PANTOPRAZOLE 40MG TAB (PROTONIX) PO SCH (08:46)
[2018-08-31] MEDS: CitaloPRAM (CeleXA) 10 MG TABLET PO SCH (08:46)
[2018-08-31] MEDS: ATORVASTATIN 20 MG TAB PO SCH (08:46)
[2018-08-31] MEDS: ASPIRIN 325 MG TAB PO SCH (08:46)
[2018-08-31] MEDS: IRBESARTAN 150 MG TAB PO SCH (08:48)
[2018-08-31] MEDS: MULTIVITAMINS/MINERALS THERAP 1 TAB PO SCH (08:48)
[2018-08-31] MEDS: MUPIROCIN 2% OINT 22 GM TUBE TOP SCH ×2 (08:50→21:15)
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
[2018-08-31 11:56] VITALS: BP 114/57
[2018-08-31 18:00] VITALS: BP 116/67
[2018-08-31] MEDS: LEVEMIR (INSULIN DETEMIR) 1 UNITS/0.01ML SC SCH (21:00)
[2018-08-31] MEDS: rOPINIRole 1MG TAB PO SCH (21:15)
[2018-08-31] MEDS: hydrOXYzine 50 MG TAB PO PRN (21:19)
[2018-08-31 22:06] VITALS: BP 116/67
[2018-09-01 06:00] VITALS: BP 130/70
[2018-09-01] MEDS: HumaLOG INSULIN (NovoLOG) PER UNIT SC SCH (06:40)
[2018-09-01 09:00] VITALS: BP 100/60
[2018-09-01] MEDS: NICOTINE 21MG/24HR 1 EA TRANSDERMAL TD SCH (09:00)
[2018-09-01] MEDS: MUPIROCIN 2% OINT 22 GM TUBE TOP SCH (09:00)
[2018-09-01] MEDS: IRBESARTAN 150 MG TAB PO SCH (09:00)
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
[2018-09-01] MEDS: PANTOPRAZOLE 40MG TAB (PROTONIX) PO SCH (09:08)
[2018-09-01] MEDS: ATORVASTATIN 20 MG TAB PO SCH (09:09)
[2018-09-01] MEDS: ASPIRIN 325 MG TAB PO SCH (09:09)
[2018-09-01] MEDS: CitaloPRAM (CeleXA) 10 MG TABLET PO SCH (09:09)
[2018-09-01] MEDS ORDERED: CELE10TA PO (09:10)
[2018-09-01] MEDS ORDERED: HYDRO50TAB PO (09:10)
[2018-09-01] MEDS ORDERED: ARIP5TA PO (09:10)
== END 2018-09-01 11:30 | disposition home or self-care (01) | DRG 880 ==
LOC: M ED 21:26 → M ED INP 08-28 00:13 → M PSY 08-28 01:20
PROVIDERS: ADMIT Psychiatry & Neurology Psychiatry; ATTEND Psychiatry & Neurology Psychiatry
DX: F41.1 Generalized anxiety disorder (principal); R45.851 Suicidal ideations; F31.81 Bipolar II disorder; F10.10 Alcohol abuse, uncomplicated; Z79.899 Other long term (current) drug therapy; Z79.82 Long term (current) use of aspirin; Z88.5 Allergy status to narcotic agent; Z88.8 Allergy status to other drugs, medicaments and biological substances; Z79.4 Long term (current) use of insulin; K21.9 Gastro-esophageal reflux disease without esophagitis; G25.81 Restless legs syndrome; I10 Essential (primary) hypertension; I25.10 Atherosclerotic heart disease of native coronary artery without angina pectoris; E11.9 Type 2 diabetes mellitus without complications; I25.2 Old myocardial infarction

== ENCOUNTER 2018-10-10 06:04 | Inpatient (IN) | payer MEDICARE, MEDICAID ==
[~2018-10-10] VITALS: Ht 182.9 cm; Wt 75.9 kg
[2018-10-10] VITALS (35 sets, daily range): BP systolic 89–118; BP diastolic 50–67; O2SAT 100
[~2018-10-10 06:04] MED LIST changes: +ARIP5TA PO; +CELE10TA PO; +CITA40TA4 PO; +HYDRO50TAB PO; +LORA1TAB12 PO; +MECL-68 PO; +VITA50005 PO; +VIVI380I IM; -rOPINIRole 1MG TAB PO ONE
[2018-10-10] MEDS ORDERED: PHENobarbital INJ 65 MG/ML VIAL (J2560) IV STA (06:11)
[2018-10-10] MEDS ORDERED: PROPOFOL 1,000 MG/100 ML VIAL As Ordered ONE (06:43)
[2018-10-10] MEDS: PROPOFOL 1,000 MG in APPROPRIATE DILUENT 1 EA IV SCH ×6 (06:45→23:37)
[2018-10-10 06:52] LABS: BASO % 0.8 % (0.0-1.0); EOS # 0.2 10^3/uL (0.0-0.50); EOS % 5.2 % (0.0-3.0); HEMATOCRIT 32.1 % (42.0-52.0); HEMOGLOBIN 10.4 g/dl (13.5-17.5); LYMPH % 26.7 % (24.0-44.0); MEAN CORPUSCULAR HEMOGLOBIN 26.5 pg (27.0-33.0); MEAN CORPUSCULAR HGB CONC 32.4 g/dl (32.0-36.5); MEAN CORPUSCULAR VOLUME 81.7 fl (80.0-96.0); MONO # 0.4 10^3/uL (0.0-0.8); MONO % 10.4 % (0.0-5.0); NEUTROPHILS # 2.1 10^3/uL (1.8-7.7); NEUTROPHILS % 56.6 % (36.0-66.0); PLATELET COUNT, AUTOMATED 293 10^3/uL (150-450); RED BLOOD COUNT 3.93 10^6/uL (4.30-6.10); WHITE BLOOD COUNT 3.7 10^3/uL (4.0-10.0)
[2018-10-10 07:05] LABS: BLOOD UREA NITROGEN 8 MG/DL (7-18); CALCIUM LEVEL 7.7 MG/DL (8.5-10.1); CARBON DIOXIDE LEVEL 25 MEQ/L (21-32); CHLORIDE LEVEL 112 MEQ/L (98-107); CREATININE FOR GFR 0.72 MG/DL (0.70-1.30); GLOMERULAR FILTRATION RATE > 60.0 (>60); GLUCOSE, FASTING 116 MG/DL (70-100); POTASSIUM SERUM 3.1 MEQ/L (3.5-5.1); SODIUM LEVEL 145 MEQ/L (136-145)
[2018-10-10 07:06] LABS: INR 0.99; PROTHROMBIN TIME 13.2 SECONDS (12.1-14.4)
[2018-10-10 07:07] LABS: PARTIAL THROMBOPLASTIN TIME 28.4 SECONDS (25.4-37.6)
[2018-10-10] MEDS ORDERED: ETOMIDATE INJ 20MG/10ML VIAL IV STA (07:09)
[2018-10-10] MEDS ORDERED: SUCCINYLCHOLINE INJ 200 MG/10 ML VIAL (J0330) IV STA (07:09)
[2018-10-10] MEDS ORDERED: NS 1,000 ML IV ONE (07:15)
--- NOTE | 2018-10-10 07:26 | REPVR ---
EXAM: CT Head Without Contrast EXAM DATE/TIME: 10/10/2018 6:21 AM CLINICAL HISTORY: 47 years old, male; Signs and symptoms; Altered mental status/memory loss; Confusion or disorientation; Additional info: AMS TECHNIQUE: Imaging protocol: Axial computed tomography images of the head/brain without contrast. Radiation optimization: All CT scans at this facility use at least one of these dose optimization techniques: automated exposure control; mA and/or kV adjustment per patient size (includes targeted exams where dose is matched to clinical indication); or iterative reconstruction. COMPARISON: CT Head without contrast 10/30/2017 11:12 AM FINDINGS: Brain: Normal. No hemorrhage. No significant white matter disease. No edema. Ventricles: Normal. No ventriculomegaly. Bones/joints: Unremarkable. No acute fracture. Sinuses: Visualized sinuses are unremarkable. No acute sinusitis. Mastoid air cells: Visualized mastoid air cells are unremarkable. No mastoid effusion. Soft tissues: Unremarkable. IMPRESSION: No acute intracranial abnormality. Electronically signed by: Chuck Paige On 10/10/2018 07:25:52 AM
--- NOTE | 2018-10-10 07:39 | ECGEPIP ---
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
[2018-10-10 07:44] LABS: ABG BASE EXCESS 0.1 (-2.0-2.0); ABG HCO3 25.9 MEQ/L (22.0-26.0); ABG O2 SATURATION 98.9 % (95.0-99.0); ABG PARTIAL PRESSURE CO2 47.3 mmHg (35.0-45.0); ABG PARTIAL PRESSURE O2 192.6 mmHg (75.0-100.0); ABG STANDARD HCO3 24.7 MEQ/L (22.0-26.0); ABG TOTAL CO2 27.4 MEQ/L (22.0-29.0); ABG pH (ARTERIAL) 7.357 UNITS (7.350-7.450)
[2018-10-10] MEDS ORDERED: ABIL1TAB11 PO (08:02)
[2018-10-10] MEDS ORDERED: HYDR50TA70 PO (08:02)
[2018-10-10] MEDS ORDERED: CITA-229 PO (08:02)
[2018-10-10 08:15] LABS: CPK CREATINE PHOSPHOKINASE 1284 U/L (39-308); MB/CK RELATIVE INDEX 1.14 (< OR =4); TROPONIN I 0.03 NG/ML (< 0.10)
[2018-10-10] MEDS ORDERED: KCL 10MEQ/100ML SWI (KRUN) 10 MEQ in APPROPRIATE DILUENT 1 EA IV ONE (08:15)
--- NOTE | 2018-10-10 09:33 | REP ---
PORTABLE CHEST: AP portable view of the chest is performed and compared to a prior study of 06/23/2018. There is no acute infiltrate. The heart and mediastinum are unremarkable and unchanged. Endotracheal tube is seen with the tip approximately 4.5 cm above the katelynn. Nasogastric tube is seen with sideport in the stomach. Electronically Signed by Fito Clements MD 10/10/2018 06:50 P
[2018-10-10] MEDS ORDERED: THIAMINE HCL 200 MG/2 ML VIAL (J3411) IV SCH (09:45)
[2018-10-10] MEDS ORDERED: GLUCOSE 4 GM CHEW TABLET PO PRN (09:45)
[2018-10-10] MEDS ORDERED: MVI -ADULT INJECTION 10 ML VIAL IV SCH (09:45)
[2018-10-10] MEDS ORDERED: GLUCAGON FOR INJ 1 MG VIAL (J1610) SC PRN (09:45)
[2018-10-10] MEDS ORDERED: DEXTROSE 50% 50 ML SYRINGE IV PRN (09:45)
--- NOTE | 2018-10-10 11:16 | HPE ---
DATE OF ADMISSION: 10/10/2018 START TIME: 0840 hours STOP TIME: 0935 hours I attended Del Rust here in the emergency room. The patient was examined and the chart was reviewed. I spoke at length with his sister and girlfriend at the bedside. In essence, this is a 47-year-old gentleman with a long-standing history of bipolar disease and heavy alcohol use. Apparently he has been having some abdominal issues with nausea, vomiting, and diarrhea for several days. He presented to the [facility] emergency room last night complaining of abdominal cramping and muscle cramps. He had some confusional events. He was treated with what appears to be at least 14 mg of Ativan, doses of Valium and Haldol. He was transferred here after he became more combative and was in four-point restraints. He had similar issues here and was given a dose of phenobarbital at one point. He then became intubated. His significant other states that he might have had a fever. She believes that he was taking his medications. Reportedly, he has been taking his usual amount of alcohol, which is at least six to eight beers daily. No other sick exposures. ALLERGIES: Listed as MORPHINE with nausea, QUETIAPINE, VARENICLINE. MEDICATIONS: At home: - Abilify 10 mg daily - meclizine daily - Protonix 100 mg daily - Requip unknown dose daily - subcutaneous insulin daily - full dose aspirin - calcium - citalopram - hydroxyzine - Lamictal PAST MEDICAL HISTORY: Significant for: 1. Previous difficulties with coronary artery disease. 2. Known diabetes. 3. Hypertension. 4. Underlying insomnia. 5. Bipolar disease. FAMILY HISTORY: Unknown. SOCIAL HISTORY: Does use tobacco. Alcohol as outlined above. Lives with significant other. PHYSICAL EXAMINATION: Currently reveals a sedated, intubated gentleman. Heart rate 89 and regular. Blood pressure 118 systolic, respiratory rate 16 to 18. He does overbreathe the ventilator. Pupils are irregular, consistent with previous surgery, confirmed by his sister. Sclerae clear. Trachea is in the midline. CHEST: Clear to auscultation and percussion. Tactile fremitus palpable throughout. CARDIAC: Regular with no gallop. Peripheral pulses palpable. No obvious edema. ABDOMEN: Soft with active bowel sounds. No convincing organomegaly or masses. EXTREMITIES: Without cyanosis or clubbing. NEUROLOGIC: He is sedated but does move extremities when stimulated. Toes are equivocal. CURRENT LABORATORIES TO DATE: White blood cell count 3.7, hemoglobin 10.4, platelet count 293,000. 56% segmented neutrophils, no bands. Sodium 145, potassium 3.1, chloride 112, CO2 of 25, BUN 8, creatinine 0.72. CK 1284. Blood gases on his current ventilator settings were pH 7.357, PCO2 of 47.3, PO2 of 192.6. Coags unremarkable. Chest x-ray is clear. CT scan of the head read as no acute intracranial abnormality. The most pressing problems requiring my presence at the bedside are: 1. Respiratory failure requiring mechanical ventilatory support. 2. Mental status changes. 3. Diabetes mellitus. 4. Bipolar disease. 5. Alcohol abuse. 6. Electrolyte abnormalities, mainly hypokalemia. RECOMMENDATIONS: At this point, we will replete his electrolytes. We will manage his glucose. I spoke at length with his significant other and his sister at the bedside. Difficult to know what precipitated his mental status changes. He is not examined to have meningitis and therefore I do not believe lumbar puncture is warranted. I will place him in the intensive care unit (ICU) as soon as a bed is available. He will be on sedation as needed. We will send a viral panel. He will be covered for withdrawal from alcohol and propofol is useful in that, but I do not see a role for Serax just yet, but that may be added as he is weaned from his other sedation. I did discuss with them the critical nature of his illness. I left the bedside at 0935 hours. 55 minutes of critical care was delivered at the bedside, not including procedures.
[2018-10-10] MEDS: ALBUTEROL SULFATE 2.5 MG/0.5 ML INH NEB SOLN NEB SCH ×3 (11:50→20:00)
[2018-10-10] MEDS: KCL 40MEQ IN D5/0.45NS 1000ML 1,000 ML IV SCH (12:27)
[2018-10-10] MEDS: HumaLOG INSULIN (NovoLOG) PER UNIT SC SCH ×3 (12:28→23:53)
[2018-10-10] MEDS: MULTIVITAMIN ADULT IV SCH ×3 (13:47)
[2018-10-10] MEDS: KCL IV SCH ×3 (13:47)
[2018-10-10] MEDS: HEPARIN SOD (PORCINE) 5000 UNITS/ML VIAL SC SCH ×2 (13:47→22:09)
[2018-10-10] MEDS: THIAMINE IV SCH ×3 (13:47)
[2018-10-10] MEDS: [UNRECOGNIZED DRUG - OTHER] IV SCH ×3 (13:47)
[2018-10-10 14:08] LABS: ABG BASE EXCESS 0.1 (-2.0-2.0); ABG HCO3 24.1 MEQ/L (22.0-26.0); ABG PARTIAL PRESSURE CO2 36.6 mmHg (35.0-45.0); ABG PARTIAL PRESSURE O2 168.7 mmHg (75.0-100.0); ABG STANDARD HCO3 24.6 MEQ/L (22.0-26.0); ABG TOTAL CO2 25.2 MEQ/L (22.0-29.0); ABG pH (ARTERIAL) 7.436 UNITS (7.350-7.450)
[2018-10-10 14:46] LABS: BLOOD UREA NITROGEN 8 MG/DL (7-18); CALCIUM LEVEL 7.3 MG/DL (8.5-10.1); CARBON DIOXIDE LEVEL 27 MEQ/L (21-32); CHLORIDE LEVEL 113 MEQ/L (98-107); CREATININE FOR GFR 0.71 MG/DL (0.70-1.30); GLOMERULAR FILTRATION RATE > 60.0 (>60); GLUCOSE, FASTING 170 MG/DL (70-100); POTASSIUM SERUM 3.4 MEQ/L (3.5-5.1); SODIUM LEVEL 146 MEQ/L (136-145)
[2018-10-10] MEDS: MIDAZOLAM INJ 2 MG/2 ML VIAL (J2250) IV PRN ×3 (15:13→16:03)
[2018-10-10] MEDS ORDERED: POTASSIUM CHLORIDE 10% LIQ 20 MEQ/15 ML UDC PO ONE (15:15)
[2018-10-10] MEDS ORDERED: REFRIGERATOR IV KEYS XX PRN (16:00)
[2018-10-10] MEDS: OXAZEPAM 15 MG CAP PO SCH ×2 (16:24→22:09)
[2018-10-10] MEDS: MIDAZOLAM HCL 100 MG in D5W 80 ML IV SCH (17:17)
[2018-10-10] MEDS: cefTRIAXone SOD 1 GM in D5W MINI-BAG PLUS 50 ML IV SCH (18:08)
[2018-10-10] MEDS: CHLORHEXIDINE GLUCONATE 0.12 % 15ML UDC (PERIDEX ORAL RINSE) MT SCH (22:10)
[2018-10-11] VITALS (27 sets, daily range): BP systolic 90–123; BP diastolic 52–66; O2SAT 99–100
[2018-10-11] MEDS: ALBUTEROL SULFATE 2.5 MG/0.5 ML INH NEB SOLN NEB SCH ×6 (01:14→20:52)
[2018-10-11] MEDS: KCL 40MEQ IN D5/0.45NS 1000ML 1,000 ML IV SCH ×5 (01:57→19:20)
[2018-10-11] MEDS: PROPOFOL 1,000 MG in APPROPRIATE DILUENT 1 EA IV SCH ×8 (03:58→22:59)
[2018-10-11 05:04] LABS: ABG HCO3 25.6 MEQ/L (22.0-26.0); ABG O2 SATURATION 98.8 % (95.0-99.0); ABG PARTIAL PRESSURE CO2 40.7 mmHg (35.0-45.0); ABG PARTIAL PRESSURE O2 136.6 mmHg (75.0-100.0); ABG STANDARD HCO3 25.4 MEQ/L (22.0-26.0); ABG TOTAL CO2 26.9 MEQ/L (22.0-29.0); ABG pH (ARTERIAL) 7.417 UNITS (7.350-7.450)
[2018-10-11 05:10] LABS: BASO % 0.8 % (0.0-1.0); EOS # 0.2 10^3/uL (0.0-0.50); EOS % 5.1 % (0.0-3.0); HEMATOCRIT 30.1 % (42.0-52.0); HEMOGLOBIN 9.4 g/dl (13.5-17.5); LYMPH # 0.9 10^3/uL (1.5-4.5); LYMPH % 22.4 % (24.0-44.0); MEAN CORPUSCULAR HEMOGLOBIN 26.6 pg (27.0-33.0); MEAN CORPUSCULAR HGB CONC 31.2 g/dl (32.0-36.5); MONO # 0.4 10^3/uL (0.0-0.8); MONO % 11.2 % (0.0-5.0); NEUTROPHILS # 2.4 10^3/uL (1.8-7.7); PLATELET COUNT, AUTOMATED 239 10^3/uL (150-450); RED BLOOD COUNT 3.54 10^6/uL (4.30-6.10); WHITE BLOOD COUNT 3.9 10^3/uL (4.0-10.0)
[2018-10-11] MEDS: HEPARIN SOD (PORCINE) 5000 UNITS/ML VIAL SC SCH ×3 (05:33→21:22)
[2018-10-11] MEDS: OXAZEPAM 15 MG CAP PO SCH ×4 (05:34→22:02)
[2018-10-11 05:47] LABS: BLOOD UREA NITROGEN 7 MG/DL (7-18); CREATININE FOR GFR 0.72 MG/DL (0.70-1.30); GLOMERULAR FILTRATION RATE > 60.0 (>60); GLUCOSE, FASTING 201 MG/DL (70-100); SODIUM LEVEL 145 MEQ/L (136-145)
[2018-10-11 05:48] LABS: ALBUMIN 2.4 GM/DL (3.2-5.2); ALT/SGPT 31 U/L (12-78); BILIRUBIN,TOTAL 0.2 MG/DL (0.2-1.0); CALCIUM LEVEL 7.2 MG/DL (8.5-10.1); CARBON DIOXIDE LEVEL 26 MEQ/L (21-32); CHLORIDE LEVEL 113 MEQ/L (98-107); CHOLESTEROL LEVEL 128 MG/DL (< 200); CPK CREATINE PHOSPHOKINASE 1929 U/L (39-308); LDH LACTATE DEHYDROGENASE 228 U/L (87-241); PHOSPHORUS LEVEL 2.6 MG/DL (2.5-4.9); TOTAL PROTEIN 4.8 GM/DL (6.4-8.2); TRIGLYCERIDES LEVEL 112 MG/DL (<150)
[2018-10-11] MEDS: HumaLOG INSULIN (NovoLOG) PER UNIT SC SCH ×4 (05:56→23:25)
[2018-10-11] MEDS: CHLORHEXIDINE GLUCONATE 0.12 % 15ML UDC (PERIDEX ORAL RINSE) MT SCH ×2 (08:05→20:21)
--- NOTE | 2018-10-11 11:05 | REP ---
PORTABLE CHEST: AP portable view of the chest is performed and compared to a prior study of 10/10/2018. Lungs remain clear with no new infiltrate. Heart is not enlarged. Mediastinal silhouette is unchanged. Endotracheal tube and nasogastric tube are again noted not definitely changed. IMPRESSION: Stable exam. Electronically Signed by Fito Clements MD 10/11/2018 05:44 P
[2018-10-11] MEDS: KCL IV SCH ×3 (11:09)
[2018-10-11] MEDS: [UNRECOGNIZED DRUG - OTHER] IV SCH ×3 (11:09)
[2018-10-11] MEDS: THIAMINE IV SCH ×3 (11:09)
[2018-10-11] MEDS: MULTIVITAMIN ADULT IV SCH ×3 (11:09)
[2018-10-11] MEDS: MIDAZOLAM INJ 2 MG/2 ML VIAL (J2250) IV PRN (12:40)
[2018-10-11] MEDS: ARIPiprazole 10 MG TAB NG SCH (12:40)
[2018-10-11] MEDS: cefTRIAXone SOD 1 GM in D5W MINI-BAG PLUS 50 ML IV SCH (17:40)
[2018-10-11] MEDS: MIDAZOLAM HCL 100 MG in D5W 80 ML IV SCH (17:41)
--- NOTE | 2018-10-11 20:50 | CCN ---
DATE: 10/11/2018 START TIME: 925 STOP TIME: 1001 I again attended Del Rust here in the intensive care unit (ICU). Patient has been examined and chart reviewed. I have spoken at length with his significant other at the bedside. Maximal temperature overnight 98.4, blood pressure 90-115, heart rate generally 79. He is with a sinus mechanism. Respiratory rate 19 to low 20s. Intake and output midnight to midnight: 3260 mL with 910 mL out. White blood cell count 3.9, hemoglobin 9.4, platelet count 239,000, 6% segmented neutrophils, 22% lymphs, no bands. Sodium 145, potassium 4.0, chloride 113, CO2 of 26, BUN 7, creatinine 0.72, glucose 201. CK 1929. Blood gas on a pressure-regulated volume control (PRVC) rate of 16, tidal volume 450, positive end-expiratory pressure (PEEP) of 5, FiO2 of 30%. He has pH 7.417, pCO2 of 40.7, pO2 of 36.6. Chest x-ray is clear. Lines and tubes in good position. No other new laboratories or microbiology available. He has required some increase in sedation. Is currently requiring propofol and Versed, as when he is lightened he becomes marked agitated and does not follow commands. I am told by his significant other that he had a similar event at [place] some time ago, and no significant etiology was found for his behavioral issues other than being attributed to his psychiatric diagnosis. He states he has been taking his home medications, although, according to the pharmacy, he has not filled his Lamictal since March. He is sedate. Does move all extremities when aroused. Pupils are regular, consistent with his previous surgery. Membranes are moist. Trachea is in the midline. Chest is clear to both auscultation and percussion. No focal adventitious breath sounds are identified. Cardiac examination: Regular rate. No gallop. Peripheral pulses palpable, although mildly diminished. No edema. Abdomen soft with active bowel sounds. No obvious organomegaly or masses. Extremities: No cyanosis or clubbing. Neurologically, he is sedate. Ulcer and deep vein thrombosis (DVT) prophylaxis are in place. Rocephin was added yesterday due to his mild decline in his white count and some concern over a recent skin infection, although there is no obvious area of cellulitis currently. Most pressing problems requiring my immediate presence at the bedside: 1. Respiratory failure secondary to agitation. 2. Diffuse agitation. 3. Diabetes mellitus. 4. History of coronary artery disease. 5. Bipolar disorder. At this point, his electrolytes are improved from yesterday. We will restart his Abilify. He has not been taking his Lamictal, so we will not start that at this point. We will wean his sedation as able. I will likely repeat his CT scan today or tomorrow, although there is no focality to his exam. May be beneficial to involve neurology in his care should he not improve, as I have no other definitive etiology for his combative, confusional state. 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 At this point, we will proceed as outlined. He remains critically ill. I had a long discussion with his significant other at the bedside. I left the bedside at 10. Thirty-six minutes of critical care time at the bedside, not including procedure.
[2018-10-11] MEDS ORDERED: lamoTRIgine 25 MG TAB PO SCH (21:00)
[2018-10-12] VITALS (25 sets, daily range): BP systolic 97–124; BP diastolic 52–65; O2SAT 100
[2018-10-12] MEDS: ALBUTEROL SULFATE 2.5 MG/0.5 ML INH NEB SOLN NEB SCH ×6 (00:20→20:06)
[2018-10-12] MEDS: PROPOFOL 1,000 MG in APPROPRIATE DILUENT 1 EA IV SCH ×6 (01:33→21:34)
[2018-10-12] MEDS: OXAZEPAM 15 MG CAP PO SCH ×4 (04:05→22:05)
[2018-10-12] MEDS: KCL 40MEQ IN D5/0.45NS 1000ML 1,000 ML IV SCH (04:05)
[2018-10-12 04:23] LABS: BASO % 0.7 % (0.0-1.0); EOS # 0.2 10^3/uL (0.0-0.50); EOS % 3.9 % (0.0-3.0); HEMATOCRIT 32.8 % (42.0-52.0); HEMOGLOBIN 10.1 g/dl (13.5-17.5); LYMPH # 0.8 10^3/uL (1.5-4.5); LYMPH % 17.6 % (24.0-44.0); MEAN CORPUSCULAR HEMOGLOBIN 25.8 pg (27.0-33.0); MEAN CORPUSCULAR HGB CONC 30.8 g/dl (32.0-36.5); MEAN CORPUSCULAR VOLUME 83.9 fl (80.0-96.0); MONO # 0.6 10^3/uL (0.0-0.8); MONO % 14.4 % (0.0-5.0); NEUTROPHILS # 2.8 10^3/uL (1.8-7.7); NEUTROPHILS % 63.2 % (36.0-66.0); PLATELET COUNT, AUTOMATED 266 10^3/uL (150-450); RED BLOOD COUNT 3.91 10^6/uL (4.30-6.10); WHITE BLOOD COUNT 4.4 10^3/uL (4.0-10.0)
[2018-10-12 05:11] LABS: ALBUMIN 2.4 GM/DL (3.2-5.2); ALT/SGPT 36 U/L (12-78); BILIRUBIN,TOTAL 0.2 MG/DL (0.2-1.0); BLOOD UREA NITROGEN 6 MG/DL (7-18); CALCIUM LEVEL 7.4 MG/DL (8.5-10.1); CARBON DIOXIDE LEVEL 26 MEQ/L (21-32); CHLORIDE LEVEL 108 MEQ/L (98-107); CHOLESTEROL LEVEL 146 MG/DL (< 200); CPK CREATINE PHOSPHOKINASE 1428 U/L (39-308); CREATININE FOR GFR 0.88 MG/DL (0.70-1.30); GLOMERULAR FILTRATION RATE > 60.0 (>60); GLUCOSE, FASTING 357 MG/DL (70-100); LDH LACTATE DEHYDROGENASE 268 U/L (87-241); PHOSPHORUS LEVEL 2.6 MG/DL (2.5-4.9); POTASSIUM SERUM 5.9 MEQ/L (3.5-5.1); SODIUM LEVEL 137 MEQ/L (136-145); TOTAL PROTEIN 5.4 GM/DL (6.4-8.2); TRIGLYCERIDES LEVEL 133 MG/DL (<150)
[2018-10-12] MEDS: D5W/0.45% SODIUM CHLORIDE 1,000 ML IV SCH ×2 (05:25→15:18)
[2018-10-12] MEDS: HEPARIN SOD (PORCINE) 5000 UNITS/ML VIAL SC SCH ×3 (05:25→21:09)
[2018-10-12] MEDS: HumaLOG INSULIN (NovoLOG) PER UNIT SC SCH ×4 (05:25→23:33)
[2018-10-12 05:34] LABS: ABG BASE EXCESS -1.3 (-2.0-2.0); ABG HCO3 22.8 MEQ/L (22.0-26.0); ABG O2 SATURATION 98.5 % (95.0-99.0); ABG PARTIAL PRESSURE O2 120.7 mmHg (75.0-100.0); ABG STANDARD HCO3 23.4 MEQ/L (22.0-26.0); ABG TOTAL CO2 23.9 MEQ/L (22.0-29.0)
--- NOTE | 2018-10-12 08:21 | REP ---
Portable chest x-ray: Sitting AP view. History: Respiratory failure. Comparison study: October 11, 2018. Findings: Oxygen delivery tubing and EKG monitoring electrodes overlie the chest. Endotracheal tube is in good position at the level of proximal clavicles. NG tube enters left upper quadrant of the abdomen. The lungs are well inflated and free of infiltrate. Pleural angles are sharp. Cardiomediastinal silhouette is unremarkable. Impression: Endotracheal and nasogastric tubes in good position. No active cardiopulmonary disease seen. Electronically Signed by Armond Mazariegos MD 10/12/2018 08:12 A
[2018-10-12 09:40] LABS: AMORPHOUS SEDIMENT SMALL (NEGATIVE); APPEARANCE, URINE HAZY (CLEAR); BACTERIA, URINE AUTO NEGATIVE (NEGATIVE); BILIRUBIN, URINE AUTO NEGATIVE (NEGATIVE); BLOOD, URINE BLOOD NEGATIVE (NEGATIVE); COLOR, URINE YELLOW (YELLOW); GLUCOSE, URINE (UA) AUTO 3+ mg/dL (NEGATIVE); KETONE, URINE AUTO NEGATIVE (NEGATIVE); LEUKOCYTE ESTERASE, URINE AUTO NEGATIVE (NEGATIVE); MUCUS, URINE SMALL (NEGATIVE); NITRITE, URINE AUTO NEGATIVE (NEGATIVE); PROTEIN, URINE AUTO NEGATIVE (NEGATIVE); RBC, URINE AUTO 5 /HPF (0-3); SPECIFIC GRAVITY URINE AUTO 1.027 (1.002-1.035); SQUAMOUS EPITHELIAL CELL UR AU 0 /HPF (0-6); UROBILINOGEN, URINE AUTO 0.2 mg/dL (0.0-2.0); WBC, URINE AUTO 2 /HPF (0-3)
--- NOTE | 2018-10-12 09:51 | CCN ---
DATE: 10/12/2018 START TIME: 834 STOP TIME: 911 I again attended Del Rust here in the intensive care unit. Patient remains sedated, intubated and mechanically ventilated. With decrease in his sedation, he becomes agitated and does not follow commands. I have spoken at length with his significant other at the bedside. Maximum temperature (T-max) overnight 99.6, blood pressure 98-120s, heart rate 80-100s, respiratory rate generally 18 to the mid 20s. Input and output midnight mid night 4982 mL in with 2860 mL out. White blood cell count 4.4, hemoglobin 10.1, platelet count 266,000, 62% segs, no bands. Sodium 137, potassium 5.9, chloride 109, CO2 26, BUN 6, creatinine 0.88, glucose 357 this morning. LDH 268, CK down to 1428. Blood gas done on packed red blood cells (PRBC): Rate of 16, tidal volume 450, PEEP 5, FiO2 30%, pH 7.520, pCO2 36.0 and a pO2 120.7. Chest x-ray shows no acute findings. He remains on all strict deep venous thrombosis prophylaxis. He remains on Rocephin. On exam, pupils are surgically altered, sclerae clear. Trachea is in the midline. Chest shows some occasionally rhonchi, clear with suctioning. Expansion is symmetric. No other focal adventitious breath sounds are identified. Cardiac exam is regular with no gallop. Peripheral pulses diminished but palpable. No edema. Abdomen soft with normoactive bowel sounds. No convincing organomegaly or masses. Extremities show no cyanosis or clubbing. Neurologically, he is sedate, moves all extremities with sedation lightened. No new culture data available. Urinalysis was ordered yesterday but it is not in the computer yet. Most pressing problems requiring my presence at the bedside are: 1. Respiratory failure secondary to altered mental status. 2. Altered mental status, etiology remains unclear. 3. Diabetes mellitus. 4. Bipolar disorder. 5. History of cerebrovascular accident (CVA). 6. History of coronary artery disease. 7. Underlying alcohol abuse. At this point, we will continue his current regimen. When sedation is lightened, he is markedly agitated. In view of this, we will repeat the CT of his head to compare to one done on admission. Will get an EEG today. If that all looks acceptable, then we will push his weaning towards extubation and I will get most likely psychiatry involved at that point. He is mildly hyperkalemic this morning. He has been receiving some supplemental potassium as he was hypokalemic on admission but in view of his normal renal function, this may actually be spurious. Will repeat his lab work here in several hours but have removed the potassium from his IV fluids as well as from his multivitamins. He is tolerating antral feeds. As eluded to the above, I spoke at length with his significant other at the bedside. She tells me he has had issues with breaks in his behavioral status previously, although she says this was before they were together, so she did not witness them. I still wonder about the contribution of some of his outpatient psychiatric medications playing a role. For now, we will continue empiric therapy for infection. His white count is improving. He remains critically ill. I left the bedside at 0912 hours. 37 minutes of critical care time at the bedside not including procedures.
--- NOTE | 2018-10-12 09:53 | REP ---
CT Head without contrast HISTORY: Altered mental status COMPARISON: 10/10/2018 There is no intraparenchymal hemorrhage, acute infarct, mass or midline shift. The ventricular system and cortical sulci are dilated consistent with minimal volume loss. There is no extra cerebral collection. There is no fracture. The visualized sinuses are clear. IMPRESSION: Minimal volume loss. Electronically Signed by Daniel Josue MD 10/12/2018 09:45 A
[2018-10-12] MEDS: ARIPiprazole 10 MG TAB NG SCH (10:12)
[2018-10-12] MEDS: PANTOPRAZOLE 40MG INJ (PROTONIX) (C9113) IV SCH (10:12)
[2018-10-12] MEDS: CHLORHEXIDINE GLUCONATE 0.12 % 15ML UDC (PERIDEX ORAL RINSE) MT SCH ×2 (10:13→21:10)
[2018-10-12] MEDS: THIAMINE 100 MG TAB NG SCH (10:24)
[2018-10-12] MEDS: MULTIVITAMIN/MINERALS LIQUID 15ML ORAL SYRINGE FT SCH (11:16)
[2018-10-12 12:46] LABS: BLOOD UREA NITROGEN 7 MG/DL (7-18); CARBON DIOXIDE LEVEL 26 MEQ/L (21-32); CHLORIDE LEVEL 107 MEQ/L (98-107); CREATININE FOR GFR 0.89 MG/DL (0.70-1.30); GLOMERULAR FILTRATION RATE > 60.0 (>60); GLUCOSE, FASTING 382 MG/DL (70-100); POTASSIUM SERUM 5.1 MEQ/L (3.5-5.1); SODIUM LEVEL 137 MEQ/L (136-145)
[2018-10-12] MEDS: MIDAZOLAM HCL 100 MG in D5W 80 ML IV SCH (14:39)
[2018-10-12] MEDS: CitaloPRAM (CeleXA) 10 MG TABLET GT SCH (18:04)
[2018-10-12] MEDS: cefTRIAXone SOD 1 GM in D5W MINI-BAG PLUS 50 ML IV SCH (18:05)
[2018-10-13] VITALS (26 sets, daily range): BP systolic 106–136; BP diastolic 53–65; O2SAT 98–99
[2018-10-13] MEDS: ALBUTEROL SULFATE 2.5 MG/0.5 ML INH NEB SOLN NEB SCH ×6 (00:19→20:14)
[2018-10-13] MEDS: PROPOFOL 1,000 MG in APPROPRIATE DILUENT 1 EA IV SCH ×9 (00:36→23:05)
[2018-10-13] MEDS: MIDAZOLAM INJ 2 MG/2 ML VIAL (J2250) IV PRN ×2 (02:35→03:38)
[2018-10-13] MEDS: D5W/0.45% SODIUM CHLORIDE 1,000 ML IV SCH (03:43)
[2018-10-13] MEDS: OXAZEPAM 15 MG CAP PO SCH ×4 (04:01→23:05)
[2018-10-13 04:57] LABS: BASO % 0.6 % (0.0-1.0); EOS # 0.2 10^3/uL (0.0-0.50); EOS % 4.2 % (0.0-3.0); HEMATOCRIT 31.7 % (42.0-52.0); HEMOGLOBIN 9.7 g/dl (13.5-17.5); LYMPH # 0.6 10^3/uL (1.5-4.5); LYMPH % 10.7 % (24.0-44.0); MEAN CORPUSCULAR HEMOGLOBIN 25.7 pg (27.0-33.0); MEAN CORPUSCULAR HGB CONC 30.6 g/dl (32.0-36.5); MEAN CORPUSCULAR VOLUME 83.9 fl (80.0-96.0); MONO # 0.6 10^3/uL (0.0-0.8); MONO % 11.1 % (0.0-5.0); PLATELET COUNT, AUTOMATED 274 10^3/uL (150-450); RED BLOOD COUNT 3.78 10^6/uL (4.30-6.10); WHITE BLOOD COUNT 5.4 10^3/uL (4.0-10.0)
[2018-10-13] MEDS: HEPARIN SOD (PORCINE) 5000 UNITS/ML VIAL SC SCH ×3 (05:01→21:18)
[2018-10-13 05:30] LABS: ALBUMIN 2.2 GM/DL (3.2-5.2); ALT/SGPT 30 U/L (12-78); BILIRUBIN,TOTAL 0.2 MG/DL (0.2-1.0); BLOOD UREA NITROGEN 8 MG/DL (7-18); CALCIUM LEVEL 7.6 MG/DL (8.5-10.1); CARBON DIOXIDE LEVEL 27 MEQ/L (21-32); CHLORIDE LEVEL 105 MEQ/L (98-107); CHOLESTEROL LEVEL 141 MG/DL (< 200); CPK CREATINE PHOSPHOKINASE 712 U/L (39-308); CREATININE FOR GFR 0.86 MG/DL (0.70-1.30); GLOMERULAR FILTRATION RATE > 60.0 (>60); GLUCOSE, FASTING 381 MG/DL (70-100); LDH LACTATE DEHYDROGENASE 212 U/L (87-241); POTASSIUM SERUM 5.2 MEQ/L (3.5-5.1); SODIUM LEVEL 138 MEQ/L (136-145); TOTAL PROTEIN 5.2 GM/DL (6.4-8.2); TRIGLYCERIDES LEVEL 149 MG/DL (<150)
[2018-10-13] MEDS: HumaLOG INSULIN (NovoLOG) PER UNIT SC SCH ×4 (05:36→23:59)
[2018-10-13 05:51] LABS: ABG BASE EXCESS -0.2 (-2.0-2.0); ABG HCO3 24.7 MEQ/L (22.0-26.0); ABG O2 SATURATION 97.1 % (95.0-99.0); ABG PARTIAL PRESSURE CO2 40.9 mmHg (35.0-45.0); ABG PARTIAL PRESSURE O2 95.6 mmHg (75.0-100.0); ABG STANDARD HCO3 24.4 MEQ/L (22.0-26.0); ABG TOTAL CO2 25.9 MEQ/L (22.0-29.0); ABG pH (ARTERIAL) 7.398 UNITS (7.350-7.450)
[2018-10-13] MEDS: MULTIVITAMIN/MINERALS LIQUID 15ML ORAL SYRINGE FT SCH (08:18)
[2018-10-13] MEDS: CHLORHEXIDINE GLUCONATE 0.12 % 15ML UDC (PERIDEX ORAL RINSE) MT SCH ×2 (08:18→21:17)
[2018-10-13] MEDS: CitaloPRAM (CeleXA) 10 MG TABLET GT SCH (08:19)
[2018-10-13] MEDS: PANTOPRAZOLE 40MG INJ (PROTONIX) (C9113) IV SCH (08:19)
[2018-10-13] MEDS: THIAMINE 100 MG TAB NG SCH (08:19)
[2018-10-13] MEDS: ARIPiprazole 10 MG TAB NG SCH (08:19)
[2018-10-13] MEDS: MORPHINE 4 MG/ML 1ML VIAL/SYRINGE (J2270) IV PRN (09:10)
--- NOTE | 2018-10-13 09:56 | CCN ---
DATE OF SERVICE: 10/13/2018 START TIME: 830 STOP TIME: 905 I again attended Del Rust here in the intensive care unit. The patient has been examined, chart reviewed, and I spoke at length with his significant other at the bedside. He remains sedated, intubated, and mechanically ventilated. We have been able to reduce some of his sedatives. Versed drip has been discontinued. He is on propofol with intermittent Versed. He takes some as needed morphine. Maximum temperature (Tmax) 99.1, blood pressure 106-120s, heart rate generally 70s to the low 100s with a sinus mechanism. He does overbreathe the ventilator. Input and output midnight to midnight 5008 mL in with 3425 mL out. White blood cell count 5.4, hemoglobin 9.7, platelet count 274,000, 72% segmented neutrophils, no bands. Sodium 138, potassium of 5.2, chloride 105, CO2 27, BUN 8, creatinine 0.86, CK down to 712, albumin 2.2. He is tolerating his tube feeds. Fingersticks vary but generally in the low 300s. Blood gas done on an synchronized intermittent mandatory ventilation (SIMV) of 12, tidal volume of 450, PEEP of 5, FIO2 of 30%, pH 7.398, PCO2 of 40.9, pAO2 of 95.6, saturation 97%. Chest x-ray shows no new findings. Tubes in good position. On examination, he is sedate but is arousable. He does not generally follow commands, but he does move all extremities. Pupils remain consistent with postoperative status. Sclerae clear. Trachea is in the midline. Membranes are moist. Chest shows symmetric expansion with no focal wheeze, rhonchis, crackles, or rubs. Cardiac examination is regular. There may be a soft early systolic murmur. Peripheral pulses diminished but palpable. No edema. Abdomen soft with active bowel sounds. No convincing organomegaly or masses. Extremities without cyanosis or clubbing. Neurologically, as outlined above. The most pressing problems requiring my presence at the bedside are: 1. Respiratory failure secondary to altered mental status. 2. Altered mental status/confusional state. Suspect toxic metabolic encephalopathy. 3. Bipolar disorder. 4. Alcohol abuse. At this point, will continue to wean his sedation. He continues on ulcer and deep venous thrombosis (DVT) prophylaxis, as well as empiric antimicrobials. He has had no diarrhea since he has been here. He is tolerating tube feeds. He is back on all of his regular psychiatric medications. He is still on a reasonable dose of Serax in view of concern for delirium tremens (DTs). We will continue that dose until we are able to get him extubated. CT of the head was unremarkable. I await his electroencephalogram (EEG) report. At this point, he remains overall critically ill. The exact etiology of his confusional state remains unclear, but I do suspect difficulties with his outpatient medications in view of his underlying mental illness may be playing a role. Will proceed as outlined above. My hope is that we will be able to achieve extubation in the next 24-48 hours. I have communicated this to his significant other at the bedside. I left the bedside at 0906 hours. 35 minutes of critical care time delivered at the bedside, not including procedures. CHERYL
--- NOTE | 2018-10-13 10:32 | REP ---
Portable chest x-ray: Single view. History: Respiratory failure. Comparison study: October 12, 2018. Findings: Endotracheal tube seen in good position just above the transverse aorta. An NG tube enters the left upper quadrant. EKG electrodes are seen. The lungs are well inflated and clear. Pleural angles are sharp. Heart size is normal. Impression: No acute disease. Electronically Signed by Armond Mazariegos MD 10/13/2018 10:23 A
[2018-10-13] MEDS: cefTRIAXone SOD 1 GM in D5W MINI-BAG PLUS 50 ML IV SCH (17:57)
[2018-10-14] VITALS (14 sets, daily range): BP systolic 110–135; BP diastolic 57–75; O2SAT 93–94
[2018-10-14] MEDS: ALBUTEROL SULFATE 2.5 MG/0.5 ML INH NEB SOLN NEB SCH ×7 (00:51→23:48)
[2018-10-14] MEDS: PROPOFOL 1,000 MG in APPROPRIATE DILUENT 1 EA IV SCH ×2 (02:34→05:39)
[2018-10-14] MEDS: MIDAZOLAM INJ 2 MG/2 ML VIAL (J2250) IV PRN (04:20)
[2018-10-14] MEDS: OXAZEPAM 15 MG CAP PO SCH ×3 (04:22→21:56)
[2018-10-14 04:56] LABS: BASO % 0.5 % (0.0-1.0); EOS # 0.2 10^3/uL (0.0-0.50); EOS % 2.4 % (0.0-3.0); HEMATOCRIT 31.7 % (42.0-52.0); LYMPH # 0.8 10^3/uL (1.5-4.5); LYMPH % 10.1 % (24.0-44.0); MEAN CORPUSCULAR HEMOGLOBIN 26.7 pg (27.0-33.0); MEAN CORPUSCULAR HGB CONC 31.5 g/dl (32.0-36.5); MEAN CORPUSCULAR VOLUME 84.5 fl (80.0-96.0); MONO # 0.9 10^3/uL (0.0-0.8); MONO % 12.3 % (0.0-5.0); NEUTROPHILS # 5.5 10^3/uL (1.8-7.7); NEUTROPHILS % 74.4 % (36.0-66.0); PLATELET COUNT, AUTOMATED 284 10^3/uL (150-450); RED BLOOD COUNT 3.75 10^6/uL (4.30-6.10); WHITE BLOOD COUNT 7.4 10^3/uL (4.0-10.0)
[2018-10-14 05:13] LABS: ALBUMIN 2.3 GM/DL (3.2-5.2); ALT/SGPT 29 U/L (12-78); BILIRUBIN,TOTAL 0.2 MG/DL (0.2-1.0); BLOOD UREA NITROGEN 14 MG/DL (7-18); CALCIUM LEVEL 8.1 MG/DL (8.5-10.1); CARBON DIOXIDE LEVEL 28 MEQ/L (21-32); CHLORIDE LEVEL 105 MEQ/L (98-107); CHOLESTEROL LEVEL 150 MG/DL (< 200); CPK CREATINE PHOSPHOKINASE 428 U/L (39-308); GLOMERULAR FILTRATION RATE > 60.0 (>60); GLUCOSE, FASTING 346 MG/DL (70-100); LDH LACTATE DEHYDROGENASE 236 U/L (87-241); POTASSIUM SERUM 4.7 MEQ/L (3.5-5.1); SODIUM LEVEL 142 MEQ/L (136-145); TOTAL PROTEIN 6.2 GM/DL (6.4-8.2); TRIGLYCERIDES LEVEL 159 MG/DL (<150)
[2018-10-14 05:54] LABS: ABG BASE EXCESS -1.2 (-2.0-2.0); ABG HCO3 23.5 MEQ/L (22.0-26.0); ABG PARTIAL PRESSURE CO2 39.3 mmHg (35.0-45.0); ABG PARTIAL PRESSURE O2 109.3 mmHg (75.0-100.0); ABG STANDARD HCO3 23.5 MEQ/L (22.0-26.0); ABG TOTAL CO2 24.7 MEQ/L (22.0-29.0); ABG pH (ARTERIAL) 7.395 UNITS (7.350-7.450)
[2018-10-14] MEDS: HEPARIN SOD (PORCINE) 5000 UNITS/ML VIAL SC SCH ×3 (06:01→21:56)
[2018-10-14] MEDS: HumaLOG INSULIN (NovoLOG) PER UNIT SC SCH ×3 (06:02→17:05)
--- NOTE | 2018-10-14 06:36 | EEG ---
DATE OF PROCEDURE: 10/12/2018 REFERRING PHYSICIAN: Dr. Neftali Atkins DIAGNOSIS: Altered mental status. EEG #: [id number] HISTORY: The patient is a 47-year-old man with history of bipolar disorder and alcohol abuse. He was brought to [facility] for abdominal cramps. He was confused. He was treated with 14 mg of Ativan, doses of Valium and Haldol. He became more combative and was in four-point restraints. He was given phenobarbital and is intubated. He is currently on propofol, thiamine, ceftriaxone, Lamictal, oxazepam, Abilify, thiamine, Versed, etc. TECHNICAL DESCRIPTION: This digital EEG was recorded by 21 scalp, ear and two EKG electrodes and was reviewed in bipolar and referential montages following reformatting in 10-20 international electrode placement system. INTERPRETATION: The patient was noted to be in mostly drowsy state during this EEG. Background rhythm consisted of bursts of 6-7 Hz theta activity measuring 20-40 microvolts in amplitude, followed by suppression of background rhythm with background rhythm consisting of 10 microvolts electrical activity. Stage II sleep was noted during the bursts of electrical activity followed by suppression of background rhythm. Hyperventilation could not be performed. Photic stimulation remained unremarkable. EKG revealed normal sinus rhythm. No focal, lateralizing or epileptiform abnormalities were seen. No clinical or electrographic seizures were recorded. CONCLUSION: This EEG in a mechanically ventilated patient on sedation is abnormal due to presence of mild burst suppression pattern consistent with sedation and anesthesia due to medication effect. No electrographic seizures or epileptiform abnormalities were seen. Clinical correlation is recommended.
--- NOTE | 2018-10-14 08:18 | REP ---
Portable chest x-ray: Single view. History: Respiratory failure. Comparison study: October 13, 2018. Findings: EKG monitoring electrodes overlie the chest. A nasogastric tube enters the left upper quadrant of the abdomen. Endotracheal tube is seen in good position just above the level of the proximal clavicles. No new infiltrate is seen in the lung garner. The left hemidiaphragm is slightly elevated. Pleural angles are sharp. Heart is not enlarged. Old healed rib fractures again noted on the left. Impression: No new infiltrate. Electronically Signed by Armond Mazariegos MD 10/14/2018 03:48 P
[2018-10-14] MEDS: MULTIVITAMIN/MINERALS LIQUID 15ML ORAL SYRINGE FT SCH (09:41)
[2018-10-14] MEDS: CHLORHEXIDINE GLUCONATE 0.12 % 15ML UDC (PERIDEX ORAL RINSE) MT SCH (09:41)
[2018-10-14] MEDS: PANTOPRAZOLE 40MG INJ (PROTONIX) (C9113) IV SCH (09:41)
[2018-10-14] MEDS: ARIPiprazole 10 MG TAB NG SCH (09:42)
[2018-10-14] MEDS: THIAMINE 100 MG TAB NG SCH (09:42)
[2018-10-14] MEDS: CitaloPRAM (CeleXA) 10 MG TABLET GT SCH (09:42)
[2018-10-14 10:09] LABS: ABG BASE EXCESS 2.3 (-2.0-2.0); ABG HCO3 26.6 MEQ/L (22.0-26.0); ABG O2 SATURATION 96.4 % (95.0-99.0); ABG PARTIAL PRESSURE O2 85.4 mmHg (75.0-100.0); ABG STANDARD HCO3 26.5 MEQ/L (22.0-26.0); ABG TOTAL CO2 27.8 MEQ/L (22.0-29.0)
--- NOTE | 2018-10-14 10:13 | CCN ---
DATE: 10/14/2018 Start time: 0848 hours Stop time: 0926 hours I again attended eDl Rust here in the intensive care unit. The patient has been examined, his chart reviewed. I have spoken at length with his sister and significant other at the bedside. He has been off all of his propofol since 7:30 this morning. He is not due for Serax until 11. He only received one dose of as needed Versed. He is much more calm today. He does occasionally open his eyes. He did voice some words, but only intermittently will follow commands. T-max overnight 99.6, heart rate generally 90 to 1-teens with a sinus mechanism. Blood pressure 110 to 130 systolic. Intake and output midnight to midnight 2925 mL in with 3625 mL out. Chest x-ray shows tubes in good position. Question of some basilar atelectasis this morning. White blood cell count 7.4, hemoglobin 10.0, platelet count 284,000, 74% segs, no bands. Sodium 142, K of 4.7, chloride 105, CO2 28, BUN 14, creatinine 0.9, glucose 346, CK down to 428. Blood gas done on an SIMV of 8, tidal volume 450, PEEP of 5, pressure support of 10, FiO2 of 30%, has a pH of 7.395, pCO2 of 39.3, pO2 of 109.3. The most pressing problems requiring my presence at the bedside: 1. Respiratory failure secondary to altered mental status. 2. Diabetes mellitus. 3. Know EtOH abuse. 4. Underlying bipolar disorder. My hope is that we are out of the realm where significant delirium tremens (DT) are problematic. We will begin to wean his Serax. He is tolerating being off the propofol and Versed. He is more cooperative generally and certainly less agitated. My hope is that we will be able to achieve extubation this morning. I spoke at length with family at the bedside. He remains on ulcer and deep vein thrombosis (DVT) prophylaxis. He is on empiric antimicrobials as well. He does remain critically ill. I left the bedside at 0926 hours. 38 minutes of critical care time delivered at the bedside, not including procedures.
[2018-10-14] MEDS: cefTRIAXone SOD 1 GM in D5W MINI-BAG PLUS 50 ML IV SCH (17:04)
[2018-10-15] VITALS (7 sets, daily range): BP systolic 114–143; BP diastolic 62–78
[2018-10-15] MEDS: HumaLOG INSULIN (NovoLOG) PER UNIT SC SCH ×4 (00:08→17:23)
[2018-10-15] MEDS: ALBUTEROL SULFATE 2.5 MG/0.5 ML INH NEB SOLN NEB SCH ×5 (03:01→23:42)
[2018-10-15 06:00] LABS: ABG BASE EXCESS 0.3 (-2.0-2.0); ABG HCO3 26.1 MEQ/L (22.0-26.0); ABG O2 SATURATION 97.1 % (95.0-99.0); ABG PARTIAL PRESSURE CO2 47.4 mmHg (35.0-45.0); ABG PARTIAL PRESSURE O2 99.5 mmHg (75.0-100.0); ABG STANDARD HCO3 24.7 MEQ/L (22.0-26.0); ABG TOTAL CO2 27.5 MEQ/L (22.0-29.0); ABG pH (ARTERIAL) 7.358 UNITS (7.350-7.450)
[2018-10-15] MEDS: OXAZEPAM 15 MG CAP PO SCH ×3 (06:14→21:01)
[2018-10-15] MEDS: HEPARIN SOD (PORCINE) 5000 UNITS/ML VIAL SC SCH ×3 (06:14→21:02)
[2018-10-15 06:27] LABS: BASO # 0.1 10^3/uL (0.0-0.2); BASO % 0.8 % (0.0-1.0); EOS # 0.4 10^3/uL (0.0-0.50); EOS % 5.9 % (0.0-3.0); HEMOGLOBIN 10.4 g/dl (13.5-17.5); LYMPH # 0.9 10^3/uL (1.5-4.5); LYMPH % 12.4 % (24.0-44.0); MEAN CORPUSCULAR HEMOGLOBIN 25.9 pg (27.0-33.0); MEAN CORPUSCULAR HGB CONC 30.6 g/dl (32.0-36.5); MEAN CORPUSCULAR VOLUME 84.8 fl (80.0-96.0); MONO # 0.7 10^3/uL (0.0-0.8); MONO % 10.3 % (0.0-5.0); NEUTROPHILS % 70.2 % (36.0-66.0); PLATELET COUNT, AUTOMATED 296 10^3/uL (150-450); RED BLOOD COUNT 4.01 10^6/uL (4.30-6.10); WHITE BLOOD COUNT 7.1 10^3/uL (4.0-10.0)
[2018-10-15 06:57] LABS: ALBUMIN 2.3 GM/DL (3.2-5.2); ALT/SGPT 30 U/L (12-78); BILIRUBIN,TOTAL 0.4 MG/DL (0.2-1.0); BLOOD UREA NITROGEN 21 MG/DL (7-18); CALCIUM LEVEL 8.3 MG/DL (8.5-10.1); CARBON DIOXIDE LEVEL 26 MEQ/L (21-32); CHLORIDE LEVEL 103 MEQ/L (98-107); CHOLESTEROL LEVEL 171 MG/DL (< 200); CPK CREATINE PHOSPHOKINASE 230 U/L (39-308); CREATININE FOR GFR 0.78 MG/DL (0.70-1.30); GLOMERULAR FILTRATION RATE > 60.0 (>60); GLUCOSE, FASTING 298 MG/DL (70-100); LDH LACTATE DEHYDROGENASE 223 U/L (87-241); PHOSPHORUS LEVEL 3.4 MG/DL (2.5-4.9); POTASSIUM SERUM 4.7 MEQ/L (3.5-5.1); SODIUM LEVEL 142 MEQ/L (136-145); TOTAL PROTEIN 6.4 GM/DL (6.4-8.2); TRIGLYCERIDES LEVEL 168 MG/DL (<150)
[2018-10-15] MEDS: THIAMINE 100 MG TAB NG SCH (08:03)
[2018-10-15] MEDS: MULTIVITAMIN/MINERALS LIQUID 15ML ORAL SYRINGE FT SCH (08:03)
[2018-10-15] MEDS: CitaloPRAM (CeleXA) 10 MG TABLET GT SCH (08:03)
[2018-10-15] MEDS: ARIPiprazole 10 MG TAB NG SCH (08:03)
[2018-10-15] MEDS: PANTOPRAZOLE 40MG INJ (PROTONIX) (C9113) IV SCH (08:03)
--- NOTE | 2018-10-15 09:03 | REP ---
Oral chest x-ray: Single view. History: Respiratory failure. Comparison study: October 14, 2018. Findings: EKG monitoring electrodes and oxygen delivery tubing are seen. There are are some increased markings in the left base behind the heart including a linear density consistent with atelectasis and/or infiltrate. No other infiltrate is seen. Endotracheal tube and nasogastric tube have both been withdrawn in the interval since yesterday's radiograph. There is an old healed rib fracture again noted on the left. Electronically Signed by Armond Mazariegos MD 10/15/2018 08:54 A
[2018-10-15] MEDS ORDERED: GLUCAGON FOR INJ 1 MG VIAL (J1610) SC PRN (10:45)
[2018-10-15] MEDS ORDERED: OXAZEPAM 15 MG CAP PO SCH (10:45)
[2018-10-15] MEDS ORDERED: DEXTROSE 50% 50 ML SYRINGE IV PRN (10:45)
[2018-10-15] MEDS ORDERED: GLUCOSE 4 GM CHEW TABLET PO PRN (10:45)
--- NOTE | 2018-10-15 11:19 | IPNPDOC ---
Date Seen The patient was seen on 10/15/18. Progress Note SUBJECTIVE: Patient was seen and examined this morning. He was previously admitted to the ICU and followed by Pulmonary/ICU as he was intubated. The patient was transferred from [facility] for what was believed to be acute psychosis vs delirium tremens. The patient had denied drinking although the medical record indicates that the patients significant other had stated that he drinks quite often. It appears the patient had difficulty coming off the ventilator due to continued agitation. He was continued on Serax and Versed. He was extubated yesterday and has been doing well since that time. He does not appear agitated at this point in time. He denies any tremors. He denies anxious feelings. He does admit to having an appetite. He is unable to elaborate much on the events of his hospitalization OBJECTIVE PHYSICAL EXAMINATION: VITAL SIGNS: Please see below. GENERAL: Awake, alert, and oriented. He does not appear in any acute distress. He is sitting up in bed comfortably. He does not appear agitated. He is mild mannered. HEENT: Atraumatic, normocephalic. Trachea is midline. Eyes are non-icteric. Patient does not have teeth. CARDIOVASCULAR: Normal S1, S2. Regular rate and rhythm. No clicks, rubs, or murmurs noted on exam. No JVD or carotid bruits RESPIRATORY: Clear to auscultation bilaterally with good respiratory effort. No wheezes, rhonci, or rales. ABDOMINAL: Soft, nondistended, nontender to palpation in all four quadrants. Positive bowel sounds throughout. EXTREMITIES: Scars present on patients shins bilateral from restraints. No edema. Pulses are full and equal in upper and lower extremities bilaterally. NEUROLOGICAL: No focal neurological deficits. Reflexes normal. No tremor PSYCHOLOGICAL: Somewhat flat affect. Mood is appropriate. LABORATORY DATA, IMAGING STUDIES, MICROBIOLOGY: Please see below. DVT prophylaxis ordered?: YES ASSESSMENT AND PLAN: Patient is a 47 year old male with a past medical history significant heavy alcohol abuse, CAD, diabetes, HTN, insomnia, and bipolar disorder who originally presented to [facility] with complaint of abdominal pain. The patient had become agitated at [place] and received multiple doses of Ativan and Valium. The patient had continued agitation and was transferred to [facility] where he recieved phenobarbital. He was placed in restraints and subsequently intubated. The patient was seen by Pulm/ICU and was extubated yesterday. PROBLEMS: 1. Respiratory Failure Requiring Mechanical Ventilatory Support -Patient was extubated yesterday. -Resolved 2. Acute Psychosis vs DT -Patient had presented with agitation. He had received many sedating medications. He has a history of alcohol abuse. His ETOH in [place] was negative. -Patient is on Serax 15mg Q8H -Patient is currently not agitated and is mood is appropriate. Consider Ativan PRN if patient does become agitated. 3. Alcohol Abuse -Serax 15mg Q8H -c/w Thiamine and MVI 4. Bipolar Disease -Continue home medications 5. Hypokalemia -Will monitor and supplement PRN 6. Diabetes Mellitus Type 2 -Sliding scale 7. History of CVD -Continue aspirin and statin 8. DVT prophylaxis -Heparin SQ Disposition: - Will start PT VS, I&O, 24H, Fishbone Vital Signs/I&O Vital Signs Date Time Temp Pulse Resp B/P (MAP) Pulse Ox O2 Delivery O2 Flow Rate FiO2 10/15/18 08:00 2.0 10/15/18 08:00 97.3 84 18 126/71 (89) 95 10/14/18 10:20 Aerosol Mask 28 I&O- Last 24 Hours up to 6 AM 10/15/18 06:00 Intake Total 850 ml Output Total 2955 ml Balance -2105 ml Laboratory Data 24H LABS Laboratory Tests 2 10/14/18 11:39: Bedside Glucose (Misc Panel) 365H 10/14/18 16:55: Bedside Glucose (Misc Panel) 309H 10/15/18 00:00: Bedside Glucose (Misc Panel) 333H 10/15/18 05:50: Blood Gas Bicarbonate Standard 24.7, Arterial Blood pH 7.358, Arterial Blood Partial Pressure CO2 47.4H, Arterial Blood Partial Pressure O2 99.5, Arterial Blood Total CO2 27.5, Arterial Blood HCO3 26.1H, Arterial Blood Base Excess 0.3, Arterial Blood Oxygen Saturation 97.1 10/15/18 06:02: Immature Granulocyte % (Auto) 0.4, White Blood Count 7.1, Red Blood Count 4.01L, Hemoglobin 10.4L, Hematocrit 34.0L, Mean Corpuscular Volume 84.8, Mean Corpuscular Hemoglobin 25.9L, Mean Corpuscular Hemoglobin Concent 30.6L, Red Cell Distribution Width 16.8H, Platelet Count 296, Neutrophils (%) (Auto) 70.2H, Lymphocytes (%) (Auto) 12.4L, Monocytes (%) (Auto) 10.3H, Eosinophils (%) (Auto) 5.9H, Basophils (%) (Auto) 0.8, Neutrophils # (Auto) 5.0, Lymphocytes # (Auto) 0.9L, Monocytes # (Auto) 0.7, Eosinophils # (Auto) 0.4, Basophils # (Auto) 0.1, Nucleated Red Blood Cells % (auto) 0.0, Bedside Glucose (Misc Panel) 288H, Anion Gap 13, Glomerular Filtration Rate > 60.0, Blood Urea Nitrogen 21H, Creatinine 0.78, Sodium Level 142, Potassium Level 4.7, Chloride Level 103, Carbon Dioxide Level 26, Calcium Level 8.3L, Phosphorus Level 3.4, Aspartate Amino Transf (AST/SGOT) 25, Alanine Aminotransferase (ALT/SGPT) 30, Lactate Dehydrogenase 223, Total Creatine Kinase 230, Alkaline Phosphatase 110, Total Bilirubin 0.4#, Triglycerides Level 168H, Cholesterol Level 171, Total Protein 6.4, Albumin 2.3L , Albumin/Globulin Ratio 0.56L CBC/BMP Laboratory Tests 10/15/18 06:02 Red Blood Count 4.01 L, Mean Corpuscular Volume 84.8, Mean Corpuscular Hemoglobin 25.9 L, Mean Corpuscular Hemoglobin Concent 30.6 L, Red Cell Distribution Width 16.8 H, Neutrophils (%) (Auto) 70.2 H, Lymphocytes (%) (Auto) 12.4 L, Monocytes (%) (Auto) 10.3 H, Eosinophils (%) (Auto) 5.9 H, Basophils (%) (Auto) 0.8, Neutrophils # (Auto) 5.0, Lymphocytes # (Auto) 0.9 L, Monocytes # (Auto) 0.7, Eosinophils # (Auto) 0.4, Basophils # (Auto) 0.1, Calcium Level 8.3 L, Phosphorus Level 3.4, Aspartate Amino Transf (AST/SGOT) 25, Alanine Aminotransferase (ALT/SGPT) 30, Lactate Dehydrogenase 223, Total Creatine Kinase 230, Alkaline Phosphatase 110, Total Bilirubin 0.4 #, Triglycerides Level 168 H, Cholesterol Level 171, Total Protein 6.4, Albumin 2.3 L GME ATTESTATION GME ATTESTATION My faculty preceptor for this patient encounter was physically present during the encounter and was fully available. All aspects of the patient interview, examination, medical decision making process, and medical care plan development were reviewed and approved by the faculty preceptor. The faculty preceptor is aware and concurs with the plan as stated in the body of this note and will attest to such by his/her cosignature. ATTENDING NOTE I, Regina Mendoza, have both independently examined this patient as well as reviewed the documentation. I have discussed in detail with the resident the findings and plan of treatment as documented in the residents documentation. I will continue to follow the patient and offer further guidance to the patients care as necessary during this hospital stay. AYO HERRERA DO Oct 15, 2018 11:19 REGINA MENDOZA MD Oct 15, 2018 19:02
[2018-10-15] MEDS: ATORVASTATIN 20 MG TAB PO SCH (12:39)
[2018-10-15] MEDS: ASPIRIN 325 MG TAB PO SCH (12:39)
[2018-10-15] MEDS: MORPHINE 4 MG/ML 1ML VIAL/SYRINGE (J2270) IV PRN (15:10)
[2018-10-15] MEDS: cefTRIAXone SOD 1 GM in D5W MINI-BAG PLUS 50 ML IV SCH (17:23)
[2018-10-15] MEDS ORDERED: HumaLOG INSULIN (NovoLOG) PER UNIT SC SCH (21:00)
[2018-10-16] MEDS: ALBUTEROL SULFATE 2.5 MG/0.5 ML INH NEB SOLN NEB SCH ×4 (00:06→15:42)
[2018-10-16] MEDS: OXAZEPAM 15 MG CAP PO SCH ×2 (05:28→14:30)
[2018-10-16] MEDS: HEPARIN SOD (PORCINE) 5000 UNITS/ML VIAL SC SCH ×2 (05:29→14:31)
[2018-10-16 06:00] VITALS: BP 131/60
[2018-10-16 06:25] LABS: HEMATOCRIT 34.7 % (42.0-52.0); HEMOGLOBIN 10.7 g/dl (13.5-17.5); MEAN CORPUSCULAR HEMOGLOBIN 26.2 pg (27.0-33.0); MEAN CORPUSCULAR HGB CONC 30.8 g/dl (32.0-36.5); PLATELET COUNT, AUTOMATED 295 10^3/uL (150-450); RED BLOOD COUNT 4.08 10^6/uL (4.30-6.10); WHITE BLOOD COUNT 6.4 10^3/uL (4.0-10.0)
[2018-10-16 06:54] LABS: BLOOD UREA NITROGEN 26 MG/DL (7-18); CALCIUM LEVEL 8.3 MG/DL (8.5-10.1); CARBON DIOXIDE LEVEL 17 MEQ/L (21-32); CHLORIDE LEVEL 96 MEQ/L (98-107); CREATININE FOR GFR 0.89 MG/DL (0.70-1.30); GLOMERULAR FILTRATION RATE > 60.0 (>60); GLUCOSE, FASTING 509 MG/DL (70-100); MAGNESIUM LEVEL 2.1 MG/DL (1.8-2.4); POTASSIUM SERUM 4.9 MEQ/L (3.5-5.1); SODIUM LEVEL 133 MEQ/L (136-145)
[2018-10-16] MEDS: HumaLOG INSULIN (NovoLOG) PER UNIT SC SCH ×3 (07:04→16:46)
[2018-10-16 08:00] VITALS: BP 116/68
[2018-10-16] MEDS ORDERED: HumaLOG INSULIN (NovoLOG) PER UNIT SC ONE (08:00)
[2018-10-16] MEDS: THIAMINE 100 MG TAB NG SCH (08:20)
[2018-10-16] MEDS: ATORVASTATIN 20 MG TAB PO SCH (08:20)
[2018-10-16] MEDS: CitaloPRAM (CeleXA) 10 MG TABLET GT SCH (08:20)
[2018-10-16] MEDS: ARIPiprazole 10 MG TAB NG SCH (08:20)
[2018-10-16 08:21] VITALS: BP 116/68
[2018-10-16] MEDS: ASPIRIN 325 MG TAB PO SCH (08:21)
[2018-10-16] MEDS: PANTOPRAZOLE 40MG INJ (PROTONIX) (C9113) IV SCH (08:21)
[2018-10-16] MEDS: MULTIVITAMIN/MINERALS LIQUID 15ML ORAL SYRINGE FT SCH (08:21)
[2018-10-16] MEDS ORDERED: NS 1,000 ML IV SCH (08:30)
[2018-10-16] MEDS ORDERED: LEVEMIR (INSULIN DETEMIR) 1 UNITS/0.01ML SC SCH (09:00)
[2018-10-16 09:28] LABS: BLOOD UREA NITROGEN 27 MG/DL (7-18); CALCIUM LEVEL 8.3 MG/DL (8.5-10.1); CARBON DIOXIDE LEVEL 18 MEQ/L (21-32); CHLORIDE LEVEL 97 MEQ/L (98-107); CREATININE FOR GFR 1.07 MG/DL (0.70-1.30); GLOMERULAR FILTRATION RATE > 60.0 (>60); GLUCOSE, FASTING 474 MG/DL (70-100); POTASSIUM SERUM 4.8 MEQ/L (3.5-5.1); SODIUM LEVEL 133 MEQ/L (136-145)
[2018-10-16 11:42] LABS: BLOOD UREA NITROGEN 30 MG/DL (7-18); CARBON DIOXIDE LEVEL 18 MEQ/L (21-32); CHLORIDE LEVEL 96 MEQ/L (98-107); CREATININE FOR GFR 1.08 MG/DL (0.70-1.30); GLOMERULAR FILTRATION RATE > 60.0 (>60); GLUCOSE, FASTING 428 MG/DL (70-100); POTASSIUM SERUM 4.7 MEQ/L (3.5-5.1); SODIUM LEVEL 134 MEQ/L (136-145)
--- NOTE | 2018-10-16 13:30 | IPNPDOC ---
Date Seen The patient was seen on 10/16/18. Progress Note SUBJECTIVE: Patient was seen and examined this morning. He currently has no complaints. There were no adverse events reported overnight. The patient did have a anion gap metabolic acidosis and likely is heading into Diabetic ketoacidosis. He remains asymptomatic at the time and denies any nausea, vomiting, abdominal pain, or lethargy. He was given 35 units of insulin and started on IV fluids with repeat BMP. OBJECTIVE PHYSICAL EXAMINATION: VITAL SIGNS: Please see below. GENERAL: Awake, alert and oriented. He is lying in bed comfortably. He appears in no acute distress. He does not appear agitated. He is calm and pleasant HEENT: Atraumatic, normocephalic. Patient has poor dentition. Mucous membranes are pink and moist. Trachea is midline CARDIOVASCULAR: Normal S1, S2. Regular rate and rhythm. No clicks, rubs, or murmurs. RESPIRATORY: Clear to auscultation bilaterally with good respiratory effort. No wheezes, rhonci, or rales ABDOMINAL: Soft, nondistended. Nontender to palpation in all 4 quadrants. No rebound tenderness or guarding. Reducible incisional hernia present in patients right lower quadrant EXTREMITIES: No edema. Healing wounds on bilateral shins 2/2 restraints when at [facility] NEUROLOGICAL: No focal neurological deficits PSYCHOLOGICAL: Mood and affect appear appropriate LABORATORY DATA, IMAGING STUDIES, MICROBIOLOGY: Please see below. DVT prophylaxis ordered?: YES ASSESSMENT AND PLAN: Patient is a 47 year old male with a past medical history significant heavy alcohol abuse, CAD, diabetes, HTN, insomnia, and bipolar disorder who originally presented to [facility] with complaint of abdominal pain. The patient had become agitated at [place] and received multiple doses of Ativan and Valium. The patient had continued agitation and was transferred to [place] where he recieved phenobarbital. He was placed in restraints and subsequently intubated. The patient was seen by Pulm/ICU and was extubated 10/14/18 PROBLEMS: 1. IDDM2 with Hyperglycemia - with possibly Early Diabetic Ketoacidosis -Patient had a glucose of 509 and an anion gap of 20 this morning. He has been asymptomatic. He was given 35 units of Levimir with IV normal saline. He has repeat BMPs ordered. -If patients anion gap remains elevated he may need an insulin drip. Repeat BMP at 1400. 2. Respiratory Failure Requiring Mechanical Ventilatory Support -Patient was extubated 10/14/18 -Resolved 3. Acute Psychosis vs DT -Patient had presented with agitation. He had received many sedating medications. He has a history of alcohol abuse. His ETOH in [place] was negative. -Patient is on Serax 15mg Q8H -Patient is currently not agitated and is mood is appropriate. He had no agitation overnight and continues to be pleasant 3. Alcohol Abuse -Serax 15mg Q8H -c/w Thiamine and MVI 4. Bipolar Disease -Continue home medications 5. Hypokalemia -Will monitor and supplement PRN 6. Diabetes Mellitus Type 2 -Sliding scale 7. History of CVD -Continue aspirin and statin 8. DVT prophylaxis -Heparin SQ VS, I&O, 24H, Fishbone Vital Signs/I&O Vital Signs Date Time Temp Pulse Resp B/P (MAP) Pulse Ox O2 Delivery O2 Flow Rate FiO2 10/16/18 08:21 94 116/68 10/16/18 08:00 98.1 18 98 10/15/18 08:00 2.0 10/14/18 10:20 Aerosol Mask 28 I&O- Last 24 Hours up to 6 AM 10/16/18 06:00 Intake Total 2740 ml Output Total 500 ml Balance 2240 ml Laboratory Data 24H LABS Laboratory Tests 2 10/15/18 16:46: Bedside Glucose (Misc Panel) 397H 10/15/18 20:35: Bedside Glucose (Misc Panel) 419H 10/16/18 06:04: Nucleated Red Blood Cells % (auto) 0.0, Anion Gap 20H, Glomerular Filtration Rate > 60.0, Blood Urea Nitrogen 26H, Creatinine 0.89, Sodium Level 133#L, Potassium Level 4.9, Chloride Level 96L, Carbon Dioxide Level 17L, Calcium Level 8.3L, Magnesium Level 2.1 10/16/18 08:16: Bedside Glucose (Misc Panel) 452H 10/16/18 08:32: Anion Gap 18H, Glomerular Filtration Rate > 60.0, Blood Urea Nitrogen 27H, Creatinine 1.07, Sodium Level 133L, Potassium Level 4.8, Chloride Level 97L, Carbon Dioxide Level 18L, Calcium Level 8.3L 10/16/18 11:03: Anion Gap 20H, Glomerular Filtration Rate > 60.0, Blood Urea Nitrogen 30H, Creatinine 1.08, Sodium Level 134L, Potassium Level 4.7, Chloride Level 96L, Carbon Dioxide Level 18L, Calcium Level 9.0 CBC/BMP Laboratory Tests 10/16/18 06:04 Red Blood Count 4.08 L, Mean Corpuscular Volume 85.0, Mean Corpuscular Hemoglobin 26.2 L, Mean Corpuscular Hemoglobin Concent 30.8 L, Red Cell Distribution Width 15.9 H, Calcium Level 8.3 L 10/16/18 08:32 Calcium Level 8.3 L 10/16/18 11:03 Calcium Level 9.0 GME ATTESTATION GME ATTESTATION My faculty preceptor for this patient encounter was physically present during the encounter and was fully available. All aspects of the patient interview, examination, medical decision making process, and medical care plan development were reviewed and approved by the faculty preceptor. The faculty preceptor is aware and concurs with the plan as stated in the body of this note and will attest to such by his/her cosignature. ATTENDING NOTE I, Regina Mendoza, have both independently examined this patient as well as reviewed the documentation. I have discussed in detail with the resident the findings and plan of treatment as documented in the residents documentation. I will continue to follow the patient and offer further guidance to the patients care as necessary during this hospital stay. AYO HERRERA DO Oct 16, 2018 13:30 REGINA MENDOZA MD Oct 17, 2018 17:27
[2018-10-16 14:00] VITALS: BP 125/61
[2018-10-16 14:30] LABS: BLOOD UREA NITROGEN 28 MG/DL (7-18); CALCIUM LEVEL 8.3 MG/DL (8.5-10.1); CARBON DIOXIDE LEVEL 24 MEQ/L (21-32); CHLORIDE LEVEL 101 MEQ/L (98-107); CREATININE FOR GFR 0.99 MG/DL (0.70-1.30); GLOMERULAR FILTRATION RATE > 60.0 (>60); GLUCOSE, FASTING 312 MG/DL (70-100); POTASSIUM SERUM 4.1 MEQ/L (3.5-5.1); SODIUM LEVEL 137 MEQ/L (136-145)
[2018-10-16 16:00] VITALS: BP 142/71
[2018-10-16 18:05] LABS: BLOOD UREA NITROGEN 24 MG/DL (7-18); CALCIUM LEVEL 8.3 MG/DL (8.5-10.1); CARBON DIOXIDE LEVEL 27 MEQ/L (21-32); CHLORIDE LEVEL 103 MEQ/L (98-107); CREATININE FOR GFR 0.87 MG/DL (0.70-1.30); GLOMERULAR FILTRATION RATE > 60.0 (>60); GLUCOSE, FASTING 191 MG/DL (70-100); POTASSIUM SERUM 3.8 MEQ/L (3.5-5.1); SODIUM LEVEL 141 MEQ/L (136-145)
[2018-10-16] MEDS ORDERED: THIA100TA NG (19:17)
[2018-10-16] MEDS ORDERED: FOLI1TAB11 PO (19:17)
[2018-10-16] MEDS ORDERED: CENTCHW4 PO (19:17)
--- NOTE | 2018-10-17 14:57 | DS.PDOC ---
Discharge Summary General Date of Admission Oct 10, 2018 at 09:14 Date of Discharge 10/16/18 Attending Physician: REGINA SINCLAIR MD Specialist/Consultants Involve: Neftali Atkins Discharge Summary PROCEDURES PERFORMED DURING STAY: Endotracheal intubation w/ mechanical ventilation ADMITTING DIAGNOSES: 1. Respiratory failure requiring mechanical ventilatory support 2. Altered Mental Status 3. Diabetes Mellitus 4. Bipolar Disease 5. Alcohol Abuse 6. Electrolyte abnormality/hyperkalemia DISCHARGE DIAGNOSES: 1. Altered mental status 2/2 Delirium Tremens 2/2 alcoholic withdraw 2. Diabetes Mellitus with Hyperglycemia - possibly 2/2 early Diabetic Ketoac idosis 3. Alcohol abuse 4. Electrolyte abnormalities 5. Bipolar Disorder COMPLICATIONS/CHIEF COMPLAINT: Altered Mental Status,Respiratory Failure. HISTORY OF PRESENT ILLNESS: Patient is a 47 year old male with a past medical history significant for bipolar disorder and a long standing history of heavy alcohol abuse who had developed abdominal pain with nausea, vomiting, and diarrhea for several days. He originally presented to [facility] emergency room with a complaint abdominal and muscle cramps. In the [facility] ER he also had some confusion. He developed agitation and was given at least 14 mg of Ativan, multiple doses of Valium and Haldol. He was subsequently transferred to [facility] as he was becoming more combative. He was placed in 4 point restraints. He continued to remain agitated and combative and was given phenobarbital. He then became intubated due to respiratory failure. The patients significant other who had been present at the time reported that the patient drinks at least eight beers a day. She stated that the patient had a similar event at [facility] ago and no specific etiology was identified for his behavioral issues other than his psychiatric illness. The patients significant other stated that to her knowledge he takes all his medications although pharmacy had found that he had not filled his Lamictal since March. At the [facility], the patient was admitted to the Intensive Care Unit under the care of the Pulmonary/ICU team. HOSPITAL COURSE: In the hospital, the patient remained intubated due to agitation. The patient was on Serax as it was suspected that he was likely in delirium tremens from alcohol withdraw. The patient may also have had an adverse reaction to some of the psychiatric medication that he was on such as the Abilify. The patient was also placed on antibiotics as he had an elevated white blood cell count and a significant behavioral change without a clear etiology. His blood cultures remained negative. The patient was extubated and care was transferred to hospitalist service. The patient was subsequently transferred. Patient appeared to be have hyperglycemia that was corrected with resuming Levem ir and starting IV fluid hydration. The patient was given 35 units of insulin with repeat BMPs and IV NS. The patients had an elevated anion-gap metabolic acidosis that resolved. The patient was pleasant throughout the remainder of his hospital course. DISCHARGE MEDICATIONS: Please see below. ALLERGIES: Please see below. PHYSICAL EXAMINATION ON DISCHARGE: VITAL SIGNS: Please see below. GENERAL: Awake, alert and oriented. Appears in no acute distress. Sitting comfortably in bed HEENT: Atraumatic normocephalic. Dentition is poor CARDIOVASCULAR EXAMINATION: Normal S1, S2. Regular rate and rhythm. No clicks, rubs, or murmurs RESPIRATORY EXAMINATION: Clear vesicular breath sounds bilaterally with good respiratory effort. No wheezes rhonci or rales ABDOMINAL EXAMINATION: Soft, nondistended, nontender to palpation in all 4 quadrants. Positive bowel sounds. Incisional hernia present in right lower quadrant EXTREMITIES: No edema. Full and equal pulses in bilateral upper and lower extr emities. Scabs on left and right shins due to 4 point restraintss NEUROLOGICAL EXAMINATION: No focal neurological deficit PSYCHIATRIC EXAMINATION: Flat affect. Mood is appropriate. No anger. LABORATORY DATA: Please see below. IMAGING: EXAM: CT Head Without Contrast EXAM DATE/TIME: 10/10/2018 6:21 AM CLINICAL HISTORY: 47 years old, male; Signs and symptoms; Altered mental status/memory loss; Confusion or disorientation; Additional info: AMS TECHNIQUE: Imaging protocol: Axial computed tomography images of the head/brain without contrast. Radiation optimization: All CT scans at this facility use at least one of these dose optimization techniques: automated exposure control; mA and/or kV adjustment per patient size (includes targeted exams where dose is matched to clinical indication); or iterative reconstruction. COMPARISON: CT Head without contrast 10/30/2017 11:12 AM FINDINGS: Brain: Normal. No hemorrhage. No significant white matter disease. No edema. Ventricles: Normal. No ventriculomegaly. Bones/joints: Unremarkable. No acute fracture. Sinuses: Visualized sinuses are unremarkable. No acute sinusitis. Mastoid air cells: Visualized mastoid air cells are unremarkable. No mastoid effusion. Soft tissues: Unremarkable. IMPRESSION: No acute intracranial abnormality. Electronically signed by: Chuck Paige On 10/10/2018 07:25:52 AM DD: CHUCK PAIGE MD 10/10/18 0621 DT: GIANA 10/10/18724 DS: ALYSHA 10/10/18724 PORTABLE CHEST: AP portable view of the chest is performed and compared to a prior study of 06/23/2018. There is no acute infiltrate. The heart and mediastinum are unremarkable and unchanged. Endotracheal tube is seen with the tip approximately 4.5 cm above the katelynn. Nasogastric tube is seen with sideport in the stomach. Electronically Signed by Fito Clements MD 10/10/2018 06:50 P DD: Fito Clements MD, MD 10/10/18 0921 DT: YAN 10/10/18 0932 DS: RENETTA 10/10/18 18510/[id number]/[id number] PORTABLE CHEST: AP portable view of the chest is performed and compared to a prior study of 10/10/2018. Lungs remain clear with no new infiltrate. Heart is not enlarged. Mediastinal silhouette is unchanged. Endotracheal tube and nasogastric tube are again noted not definitely changed. IMPRESSION: Stable exam. Electronically Signed by Fito Clements MD 10/11/2018 05:44 P DD: Fito Clements MD, MD 10/11/18 0914 DT: YAN 10/11/18 1105 DS: RENETTA 10/11/18 1744 10/11/18 1744 Portable chest x-ray: Sitting AP view. History: Respiratory failure. Comparison study: October 11, 2018. Findings: Oxygen delivery tubing and EKG monitoring electrodes overlie the chest. Endotracheal tube is in good position at the level of proximal clavicles. NG tube enters left upper quadrant of the abdomen. The lungs are well inflated and free of infiltrate. Pleural angles are sharp. Cardiomediastinal silhouette is unremarkable. Impression: Endotracheal and nasogastric tubes in good position. No active cardiopulmonary disease seen. Electronically Signed by Armond Mazariegos MD 10/12/2018 08:12 A DD: Armond Mazariegos MD 10/12/18 0810 0812 DS: AUDREY 10/12/18 0812 10/12/[address] Head without contrast HISTORY: Altered mental status COMPARISON: 10/10/2018 There is no intraparenchymal hemorrhage, acute infarct, mass or midline shift. The ventricular system and cortical sulci are dilated consistent with minimal volume loss. There is no extra cerebral collection. There is no fracture. The visualized sinuses are clear. IMPRESSION: Minimal volume loss. Electronically Signed by Daniel Josue MD 10/12/2018 09:45 A DD: Daniel Josue MD 10/12/18 0943 0945 DS: GRETCHEN 10/12/18 0945 10/12/18 0945 Portable chest x-ray: Single view. History: Respiratory failure. Comparison study: October 12, 2018. Findings: Endotracheal tube seen in good position just above the transverse aorta. An NG tube enters the left upper quadrant. EKG electrodes are seen. The lungs are well inflated and clear. Pleural angles are sharp. Heart size is normal. Impression: No acute disease. Electronically Signed by Armond Mazariegos MD 10/13/2018 10:23 A DD: Armond Mazariegos MD 10/13/18 0917 1023 DS: AUDREY 10/13/18 1023 10/13/18 1023 Portable chest x-ray: Single view. History: Respiratory failure. Comparison study: October 13, 2018. Findings: EKG monitoring electrodes overlie the chest. A nasogastric tube enters the left upper quadrant of the abdomen. Endotracheal tube is seen in good position just above the level of the proximal clavicles. No new infiltrate is seen in the lung garner. The left hemidiaphragm is slightly elevated. Pleural angles are sharp. Heart is not enlarged. Old healed rib fractures again noted on the left. Impression: No new infiltrate. Electronically Signed by Armond Mazariegos MD 10/14/2018 03:48 P DD: Armond Mazariegos MD 10/14/18 0808 DT: [facility] 10/14/18 0817 DS: AUDREY 10/14/18 1548 10/14/18 1548 Oral chest x-ray: Single view. History: Respiratory failure. Comparison study: October 14, 2018. Findings: EKG monitoring electrodes and oxygen delivery tubing are seen. There are are some increased markings in the left base behind the heart including a linear density consistent with atelectasis and/or infiltrate. No other infiltrate is seen. Endotracheal tube and nasogastric tube have both been withdrawn in the interval since yesterday's radiograph. There is an old healed rib fracture again noted on the left. Electronically Signed by Armond Mazariegos MD 10/15/2018 08:54 A DD: Armond Mazariegos MD 10/15/1853 DT: Phyllis 10/15/1854 DS: AUDREY 10/15/1854 10/15/1854 PROGNOSIS: Good ACTIVITY: [As tolerated]. DIET: Consistent Carbohydrates/ Diabetic Diet DISCHARGE PLAN: Patient is to be discharged home with follow-up with primary care doctor within 1-2 weeks. He is to take his medications as prescribed. He is to avoid the use of alcohol. He is to stop taking Abilify. DISPOSITION: 01 Home, Self-Care. DISCHARGE INSTRUCTIONS: 1. Follow-up with PCP in 1-2 weeks 2. Take medication prescribed 3. Avoid use of alcohol DISCHARGE CONDITION: [Stable]. TIME SPENT ON DISCHARGE: Greater than 45 minutes. Vital Signs/I&Os Vital Signs Date Time Temp Pulse Resp B/P (MAP) Pulse Ox O2 Delivery O2 Flow Rate FiO2 10/16/18 16:00 98.1 94 18 142/71 (94) 96 10/15/18 08:00 2.0 10/14/18 10:20 Aerosol Mask 28 I&O- Last 24 Hours up to 6 AM 10/17/18 06:00 Intake Total 240 ml Balance 240 ml Laboratory Data Labs 24H Laboratory Tests 2 10/16/18 16:26: Bedside Glucose (Misc Panel) 233H 10/16/18 17:33: Anion Gap 11, Glomerular Filtration Rate > 60.0, Blood Urea Nitrogen 24H, Creatinine 0.87, Sodium Level 141, Potassium Level 3.8, Chloride Level 103, Carbon Dioxide Level 27, Calcium Level 8.3L CBC/BMP Laboratory Tests 10/16/18 17:33 Calcium Level 8.3 L FSBS Laboratory Tests Test 10/16/18 16:26 Range/Units Bedside Glucose (Misc Panel) 233 70-105 MG/DL Discharge Medications Scheduled Aspirin (Aspirin) 325 Mg Tab, 325 MG PO DAILY, (Reported) Atorvastatin Calcium (Atorvastatin Calcium) 40 Mg Tab, 40 MG PO DAILY, (Reported) Cholecalciferol (Vitamin D3) 3,000 Unit Tab, 3,000 UNIT PO DAILY, (Reported) Citalopram Hydrobromide (Citalopram) 10 Mg Tab, 30 MG PO DAILY, (Reported) Cyanocobalamin (Vitamin B12) 1,000 Mcg Tab, 1,000 MCG PO DAILY, (Reported) Ergocalciferol (Vitamin D) 50,000 Unit Cap, 50,000 UNIT PO 1XWK, (Reported) TAKES ON FRIDAY Folic Acid (Folic Acid) 1 Mg Tab, 1 TAB PO DAILY Insulin Aspart (Novolog Flexpen) 100 Unit/Ml Inj, 1 DOSE SC AC, (Reported) PER SLIDING SCALE Insulin Glargine (Lantus) 1 Units/0.01 Ml Susp, 35 UNITS SC DAILY, (Reported) LAST DOSE ON FILE WITH LEXIIJOSÉ 25UNITS QAM AND 15UNITS QHS Multivitamins (Centrum) 1 Chw Chw, 1 TAB PO DAILY Pantoprazole Sodium (Pantoprazole Sodium) 40 Mg Tab, 40 MG PO DAILY, (Reported) Ropinirole Hydrochloride (Ropinirole HCl) 1 Mg Tab, 1 MG PO QHS, (Reported) Thiamine Hcl (Thiamine Hcl) 100 Mg Tab, 100 MG NG DAILY Scheduled PRN Hydroxyzine HCl (Hydroxyzine HCl) 50 Mg Tab, 50 MG PO Q6H PRN for ANXIETY/AGITATION, (Reported) Meclizine HCl (Meclizine HCl) 25 Mg Tab, 25 MG PO Q8H PRN for DIZZINESS, (Reported) Ropinirole Hydrochloride (Ropinirole HCl) 1 Mg Tab, 1 MG PO QHS PRN for RESTLESSNESS, (Reported) WILL TAKE IN ADDITION TO 1MG QHS DOSE PRN Allergies Coded Allergies: trazodone (Verified Allergy, Intermediate, Hives, 10/14/18) varenicline (Verified Adverse Reaction, Intermediate, Nightmares, 10/14/18) morphine (Verified Adverse Reaction, Mild, Nausea, Stomach Ache, 10/14/18) quetiapine (Verified Adverse Reaction, Mild, Leg Cramps, 10/14/18) GME ATTESTATION GME ATTESTATION My faculty preceptor for this patient encounter was physically present during the encounter and was fully available. All aspects of the patient interview, examination, medical decision making process, and medical care plan development were reviewed and approved by the faculty preceptor. The faculty preceptor is aware and concurs with the plan as stated in the body of this note and will attest to such by his/her cosignature. ATTENDING NOTE I, Regina Sinclair, have both independently examined this patient as well as reviewed the documentation. I have discussed in detail with the resident the findings and plan of treatment as documented in the residents documentation. I will continue to follow the patient and offer further guidance to the patients care as necessary during this hospital stay. AYO HERRERA DO Oct 17, 2018 14:57 REGINA SINCLAIR MD Oct 17, 2018 17:29
== END 2018-10-16 19:34 | disposition home or self-care (01) | DRG 208 ==
LOC: M ED 06:04 → M ED INP 09:14 → M ICU 11:22 → M MS4PR 10-15 13:40 → M MSPAV 10-16 14:56
PROVIDERS: ADMIT Internal Medicine Pulmonary Disease; ATTEND Internal Medicine
PROC: 5A1945Z Respiratory Ventilation, 24-96 Consecutive Hours (ICD-10-PCS; principal; 2018-10-10)
DX: J96.00 Acute respiratory failure, unspecified whether with hypoxia or hypercapnia (principal); G93.41 Metabolic encephalopathy; F10.231 Alcohol dependence with withdrawal delirium; F10.232 Alcohol dependence with withdrawal with perceptual disturbance; F31.9 Bipolar disorder, unspecified; Z79.82 Long term (current) use of aspirin; Z79.899 Other long term (current) drug therapy; Z88.5 Allergy status to narcotic agent; Z88.8 Allergy status to other drugs, medicaments and biological substances; I10 Essential (primary) hypertension; G47.00 Insomnia, unspecified; E87.6 Hypokalemia; I25.10 Atherosclerotic heart disease of native coronary artery without angina pectoris; Z86.73 Personal history of transient ischemic attack (TIA), and cerebral infarction without residual deficits

== ENCOUNTER 2018-10-24 13:45 | Emergency (ER) | payer MEDICARE, MEDICAID ==
[~2018-10-24] VITALS: Ht 177.8 cm; Wt 79.5 kg
[2018-10-24 13:45] VITALS: BP 140/66
[~2018-10-24 13:45] MED LIST changes: -/ATOR40TA; -/ATOR40TA OR; -/FAMO2TA PO; -/INSUREG SC; -/METO25TAB PO; -/QUET10TA OR; +ABIL1TAB11 PO; +ARIP1TAB6 PO; -ARIP5TA PO; +ASPI-1 PO; +CENTCHW4 PO; +CITA10TA6 PO; -CITA20TA4 PO; +CITA20TA6 PO; +FAMO1TAB11 PO; +LIPI1TAB2; +LIPI1TAB2 OR; +METO1TAB87 PO; +NOVO1INJ2 SC; +SERO1TAB OR; +THIA100TA NG; +VITA100018 PO; -VITA100072 PO
[2018-10-24] MEDS ORDERED: GI COCKTAIL 50ML BTL(HYOSCYAMINE/MAALOX/LIDOCAINE VISCOUS)(1:3:1) PO ONE (14:30)
== END 2018-10-24 14:55 | disposition home or self-care (01) ==
LOC: M ED 13:45
DX: R07.0 Pain in throat (principal); Z98.890 Other specified postprocedural states; I10 Essential (primary) hypertension; E11.9 Type 2 diabetes mellitus without complications; R42 Dizziness and giddiness; E78.00 Pure hypercholesterolemia, unspecified; H53.8 Other visual disturbances; I25.2 Old myocardial infarction; K21.9 Gastro-esophageal reflux disease without esophagitis; Z98.84 Bariatric surgery status; Z89.429 Acquired absence of other toe(s), unspecified side; M54.9 Dorsalgia, unspecified; Z87.19 Personal history of other diseases of the digestive system; F41.9 Anxiety disorder, unspecified; F31.9 Bipolar disorder, unspecified; F10.10 Alcohol abuse, uncomplicated; F17.200 Nicotine dependence, unspecified, uncomplicated; Z88.5 Allergy status to narcotic agent; Z88.8 Allergy status to other drugs, medicaments and biological substances; Z79.899 Other long term (current) drug therapy; Z79.82 Long term (current) use of aspirin; Z79.4 Long term (current) use of insulin

== ENCOUNTER 2018-12-30 20:04 | Emergency (ER) | payer MEDICARE, MEDICAID ==
[~2018-12-30] VITALS: Ht 177.8 cm; Wt 79.5 kg
[2018-12-30] MEDS ORDERED: LORazepam 2 MG TAB PO PRN (20:30)
[2018-12-30] MEDS ORDERED: MIDAZOLAM INJ 2 MG/2 ML VIAL (J2250) IV ONE (20:30)
[2018-12-30 20:40] LABS: BASO # 0.1 10^3/uL (0.0-0.2); BASO % 1.2 % (0.0-1.0); EOS # 0.3 10^3/uL (0.0-0.50); EOS % 5.3 % (0.0-3.0); HEMATOCRIT 34.7 % (42.0-52.0); HEMOGLOBIN 11.2 g/dl (13.5-17.5); LYMPH # 1.7 10^3/uL (1.5-4.5); LYMPH % 32.6 % (24.0-44.0); MEAN CORPUSCULAR HEMOGLOBIN 25.4 pg (27.0-33.0); MEAN CORPUSCULAR HGB CONC 32.3 g/dl (32.0-36.5); MEAN CORPUSCULAR VOLUME 78.7 fl (80.0-96.0); MONO # 0.5 10^3/uL (0.0-0.8); NEUTROPHILS # 2.7 10^3/uL (1.8-7.7); NEUTROPHILS % 51.7 % (36.0-66.0); PLATELET COUNT, AUTOMATED 336 10^3/uL (150-450); RED BLOOD COUNT 4.41 10^6/uL (4.30-6.10); WHITE BLOOD COUNT 5.1 10^3/uL (4.0-10.0)
[2018-12-30] MEDS ORDERED: THIAMINE 100 MG TAB PO SCH (21:00)
[2018-12-30 21:41] LABS: ACETAMINOPHEN LEVEL < 2.0 UG/ML (10.0-30.0); ALT/SGPT 26 U/L (12-78); BILIRUBIN,DIRECT < 0.1 MG/DL (0.0-0.2); BILIRUBIN,TOTAL 0.3 MG/DL (0.2-1.0); BLOOD UREA NITROGEN 27 MG/DL (7-18); CALCIUM LEVEL 8.5 MG/DL (8.5-10.1); CARBON DIOXIDE LEVEL 24 MEQ/L (21-32); CHLORIDE LEVEL 111 MEQ/L (98-107); CK-MB VALUE MASS 2.4 NG/ML (<3.6); CPK CREATINE PHOSPHOKINASE 144 U/L (39-308); CREATININE FOR GFR 1.21 MG/DL (0.70-1.30); ETHYL ALCOHOL (ETHANOL) < 0.003 % (0.000-0.010); GLOMERULAR FILTRATION RATE > 60.0 (>60); GLUCOSE, FASTING 199 MG/DL (70-100); LIPASE 116 U/L (73-393); MB/CK RELATIVE INDEX 1.67 (< OR =4); POTASSIUM SERUM 4.2 MEQ/L (3.5-5.1); SALICYLATE LEVEL 3.1 MG/DL (5.0-30.0); SODIUM LEVEL 143 MEQ/L (136-145); TOTAL PROTEIN 6.4 GM/DL (6.4-8.2); TROPONIN I < 0.02 NG/ML (< 0.10)
[2018-12-30 22:32] LABS: AMPHETAMINES LEVEL URINE NEGATIVE (NEGATIVE); BARBITURATES URINE NEGATIVE (NEGATIVE); BENZODIAZEPINES URINE POSITIVE (NEGATIVE); CANNABINOIDS URINE NEGATIVE (NEGATIVE); COCAINE METABOLITE URINE NEGATIVE (NEGATIVE); METHADONE URINE NEGATIVE (NEGATIVE); OPIATES URINE NEGATIVE (NEGATIVE); PHENCYCLIDINE URINE NEGATIVE (NEGATIVE)
[2018-12-30 23:40] VITALS: BP 126/69
--- NOTE | 2018-12-31 01:29 | REP ---
Clinical: Acute chest pain . Comparison: 10/15/2018 . Findings: The mediastinum and cardiac silhouette are stable and within normal limits for portable technique. The lung garner are clear without acute consolidation, effusion, or pneumothorax. Skeletal structures are intact. Impression: No acute cardiopulmonary process appreciated. Electronically Signed by Kashmir Schmid MD 12/31/2018 01:21 A
--- NOTE | 2018-12-31 02:00 | ECGEPIP ---
[facility] - ED Test Date: 2018-12-30 Pat Name: GIFTY BOB Department: Room: - Gender: Male Cardroom Attendant: KINJAL : 1970 Requested By: Junito See Order Number: [id number] Reading MD: Junito Gibson Measurements Intervals [place] Rate: 105 P: 68 MN: 146 QRS: 43 QRSD: 77 T: 65 QT: 335 QTc: 443 Interpretive Statements SINUS TACHYCARDIA INCOMPLETE RIGHT BUNDLE BRANCH BLOCK POSSIBLE INFERIOR MYOCARDIAL INFARCTION, PROBABLY OLD SIMILAR TO 10/10/18 Electronically Signed on 12-31-2018 2:00:18 EDT by Junito Gibson
[2018-12-31] MEDS ORDERED: MULTIVITAMINS/MINERALS THERAP 1 TAB PO SCH (09:00)
[2018-12-31] MEDS ORDERED: FOLIC ACID 1 MG TAB PO SCH (09:00)
[2018-12-31] MEDS ORDERED: IRBE150T12 PO (19:35)
[2018-12-31] MEDS ORDERED: LAMO25TA4 PO (19:35)
[2018-12-31] MEDS ORDERED: ARIP1TAB PO (19:35)
[2018-12-31] MEDS ORDERED: LORA1TAB12 PO (19:35)
== END 2018-12-30 23:41 | disposition home or self-care (01) ==
LOC: M ED 20:04 → EDBD 20:04 → M ED 23:41
DX: F10.10 Alcohol abuse, uncomplicated (principal); F31.9 Bipolar disorder, unspecified; R00.0 Tachycardia, unspecified; I45.19 Other right bundle-branch block; I25.10 Atherosclerotic heart disease of native coronary artery without angina pectoris; E10.9 Type 1 diabetes mellitus without complications; I10 Essential (primary) hypertension; Z72.0 Tobacco use; Z79.82 Long term (current) use of aspirin; Z79.4 Long term (current) use of insulin; Z79.899 Other long term (current) drug therapy; Z88.5 Allergy status to narcotic agent; Z88.8 Allergy status to other drugs, medicaments and biological substances
CPT/HCPCS: 71045; 80048; 80076; 80307; 82550; 82553; 83690; 84443; 84484; 85025; 93005; 93041; 94760; 96374; 99285; G0480; J2250

== ENCOUNTER 2018-12-31 19:18 | Emergency (ER) | payer MEDICARE, MEDICAID ==
[~2018-12-31] VITALS: Ht 177.8 cm; Wt 79.5 kg
[2018-12-31] MEDS ORDERED: ARIP1TAB PO (19:35)
[2018-12-31] MEDS ORDERED: IRBE150T12 PO (19:35)
[2018-12-31] MEDS ORDERED: LAMO25TA4 PO (19:35)
[2018-12-31] MEDS ORDERED: LORA1TAB12 PO (19:35)
[2018-12-31] MEDS ORDERED: PHENobarbital 30 MG TAB PO ONE (21:30)
[2018-12-31 22:56] LABS: HEMATOCRIT 33.5 % (42.0-52.0); HEMOGLOBIN 10.4 g/dl (13.5-17.5); MEAN CORPUSCULAR HEMOGLOBIN 25.1 pg (27.0-33.0); MEAN CORPUSCULAR VOLUME 80.7 fl (80.0-96.0); PLATELET COUNT, AUTOMATED 313 10^3/uL (150-450); RED BLOOD COUNT 4.15 10^6/uL (4.30-6.10); WHITE BLOOD COUNT 5.4 10^3/uL (4.0-10.0)
[2018-12-31 23:35] LABS: ACETAMINOPHEN LEVEL < 2.0 UG/ML (10.0-30.0); ALBUMIN 2.7 GM/DL (3.2-5.2); ALT/SGPT 25 U/L (12-78); BILIRUBIN,DIRECT < 0.1 MG/DL (0.0-0.2); BILIRUBIN,TOTAL 0.1 MG/DL (0.2-1.0); BLOOD UREA NITROGEN 18 MG/DL (7-18); CALCIUM LEVEL 7.7 MG/DL (8.5-10.1); CARBON DIOXIDE LEVEL 27 MEQ/L (21-32); CHLORIDE LEVEL 110 MEQ/L (98-107); CREATININE FOR GFR 0.76 MG/DL (0.70-1.30); ETHYL ALCOHOL (ETHANOL) < 0.003 % (0.000-0.010); GLOMERULAR FILTRATION RATE > 60.0 (>60); GLUCOSE, FASTING 190 MG/DL (70-100); SALICYLATE LEVEL 3.2 MG/DL (5.0-30.0); SODIUM LEVEL 142 MEQ/L (136-145)
[2019-01-01] MEDS ORDERED: rOPINIRole 1MG TAB PO ONE (00:30)
[2019-01-01 00:52] LABS: AMPHETAMINES LEVEL URINE NEGATIVE (NEGATIVE); BARBITURATES URINE NEGATIVE (NEGATIVE); BENZODIAZEPINES URINE NEGATIVE (NEGATIVE); CANNABINOIDS URINE NEGATIVE (NEGATIVE); COCAINE METABOLITE URINE NEGATIVE (NEGATIVE); METHADONE URINE NEGATIVE (NEGATIVE); OPIATES URINE NEGATIVE (NEGATIVE); PHENCYCLIDINE URINE NEGATIVE (NEGATIVE)
[2019-01-01] MEDS ORDERED: LORazepam 1 MG TAB PO ONE (02:30)
[2019-01-01] MEDS ORDERED: ACETAMINOPHEN 500 MG TAB PO ONE (02:30)
[2019-01-01] MEDS ORDERED: FOLI1TAB11 PO (08:27)
[2019-01-01] MEDS ORDERED: THIA100T7 PO (08:27)
[2019-01-01] MEDS ORDERED: FOLIC ACID 1 MG TAB PO ONE (08:45)
[2019-01-01] MEDS ORDERED: ARIPiprazole 10 MG TAB PO ONE (08:45)
[2019-01-01] MEDS ORDERED: IRBESARTAN 150 MG TAB PO ONE (08:45)
[2019-01-01] MEDS ORDERED: CYANOCOBALAMIN 500 MCG TAB PO ONE (08:45)
[2019-01-01] MEDS ORDERED: ATORVASTATIN 20 MG TAB PO ONE (08:45)
[2019-01-01] MEDS ORDERED: VITAMIN D 1,000 INTERNATIONAL UNITS TABLET PO ONE (08:45)
[2019-01-01] MEDS ORDERED: THIAMINE 100 MG TAB PO ONE (08:45)
[2019-01-01] MEDS ORDERED: ASPIRIN 325 MG TAB PO ONE (08:45)
[2019-01-01] MEDS ORDERED: CitaloPRAM (CeleXA) 20 MG TAB PO ONE (08:45)
[2019-01-01] MEDS ORDERED: lamoTRIgine 25 MG TAB PO ONE (08:45)
[2019-01-01] MEDS ORDERED: LEVEMIR (INSULIN DETEMIR) 1 UNITS/0.01ML SC ONE (09:00)
[2019-01-01 09:37] VITALS: BP 131/65
[2019-01-01] MEDS ORDERED: HumaLOG INSULIN (NovoLOG) PER UNIT SC ONE (10:00)
[2019-01-01 10:17] VITALS: BP 127/74
--- NOTE | 2019-01-01 13:23 | ECGEPIP ---
[facility] - ED Test Date: 2019-01-01 Pat Name: GIFTY BOB Department: Room: - Gender: Male Utilization Review Rn: KELLY : 1970 Requested By: TIA LAWRENCE Order Number: [id number] Reading MD: Junito Gibson Measurements Intervals [place] Rate: 72 P: 69 WI: 162 QRS: 37 QRSD: 89 T: 50 QT: 408 QTc: 447 Interpretive Statements SINUS RHYTHM POSSIBLE PRIOR INFERIOR INFARCT INCOMPLETE RIGHT BUNDLE BRANCH BLOCK SIMILAR TO 12/30/18 Electronically Signed on 01-01-2019 13:22:39 EDT by Junito Gibson
== END 2019-01-01 10:20 | disposition short-term general hospital (02) ==
LOC: M ED 19:18
DX: R45.851 Suicidal ideations (principal); F41.1 Generalized anxiety disorder; F10.20 Alcohol dependence, uncomplicated; E11.9 Type 2 diabetes mellitus without complications; I10 Essential (primary) hypertension; F31.9 Bipolar disorder, unspecified; Z79.899 Other long term (current) drug therapy; Z79.82 Long term (current) use of aspirin; Z79.4 Long term (current) use of insulin; Z88.5 Allergy status to narcotic agent; Z88.8 Allergy status to other drugs, medicaments and biological substances
CPT/HCPCS: 36415; 80048; 80076; 80307; 84443; 85027; 93005; 99284; G0480

== ENCOUNTER 2019-02-26 18:51 | Emergency (ER) | payer MEDICARE, MEDICAID ==
[~2019-02-26] VITALS: Ht 177.8 cm; Wt 84.1 kg
[~2019-02-26 18:51] MED LIST changes: +HYDR1TAB33 PO; -HYDRO50TAB PO; +IRBE150T12 PO; +THIA100T7 PO
[2019-02-26] MEDS ORDERED: NS 1,000 ML IV SCH (19:39)
[2019-02-26 19:46] LABS: BASO # 0.1 10^3/uL (0.0-0.2); BASO % 1.6 % (0.0-1.0); EOS # 0.6 10^3/uL (0.0-0.50); EOS % 11.2 % (0.0-3.0); HEMATOCRIT 33.5 % (42.0-52.0); HEMOGLOBIN 10.6 g/dl (13.5-17.5); LYMPH # 1.7 10^3/uL (1.5-4.5); LYMPH % 33.7 % (24.0-44.0); MEAN CORPUSCULAR HEMOGLOBIN 25.6 pg (27.0-33.0); MEAN CORPUSCULAR HGB CONC 31.6 g/dl (32.0-36.5); MEAN CORPUSCULAR VOLUME 80.9 fl (80.0-96.0); MONO # 0.3 10^3/uL (0.0-0.8); MONO % 6.9 % (0.0-5.0); NEUTROPHILS # 2.3 10^3/uL (1.8-7.7); NEUTROPHILS % 46.4 % (36.0-66.0); PLATELET COUNT, AUTOMATED 292 10^3/uL (150-450); RED BLOOD COUNT 4.14 10^6/uL (4.30-6.10); WHITE BLOOD COUNT 4.9 10^3/uL (4.0-10.0)
[2019-02-26 20:16] LABS: ALT/SGPT 26 U/L (12-78); BILIRUBIN,DIRECT < 0.1 MG/DL (0.0-0.2); BILIRUBIN,TOTAL 0.1 MG/DL (0.2-1.0); BLOOD UREA NITROGEN 13 MG/DL (7-18); CALCIUM LEVEL 8.7 MG/DL (8.5-10.1); CARBON DIOXIDE LEVEL 27 MEQ/L (21-32); CHLORIDE LEVEL 112 MEQ/L (98-107); CREATININE FOR GFR 0.78 MG/DL (0.70-1.30); GLOMERULAR FILTRATION RATE > 60.0 (>60); GLUCOSE, FASTING 71 MG/DL (70-100); LIPASE 67 U/L (73-393); POTASSIUM SERUM 4.2 MEQ/L (3.5-5.1); SODIUM LEVEL 144 MEQ/L (136-145); TOTAL PROTEIN 5.9 GM/DL (6.4-8.2)
[2019-02-26] MEDS: GASTROGRAFIN SOLUTION 30ML PO SCH ×2 (21:04→21:35)
[2019-02-26] MEDS ORDERED: ISOVUE-370 76% 100ML VIAL (Q9967) As Ordered ONE (22:37)
--- NOTE | 2019-02-26 23:22 | REPVR ---
EXAM: CT Abdomen and Pelvis With Contrast EXAM DATE/TIME: 02/26/2019 10:51 PM CLINICAL HISTORY: 48 years old, male; Abdominal pain; Localized; Left; Additional info: Luq, llq pain TECHNIQUE: Imaging protocol: Axial computed tomography images of the abdomen and pelvis with intravenous contrast. Coronal and sagittal reformatted images were created and reviewed. Radiation optimization: All CT scans at this facility use at least one of these dose optimization techniques: automated exposure control; mA and/or kV adjustment per patient size (includes targeted exams where dose is matched to clinical indication); or iterative reconstruction. Contrast material: ISOVUE 370;Contrast volume: 100 ml;Contrast route: IV; COMPARISON: CT ABD/PEL W/IV CONTRAST ONLY 09/06/2017 9:55 PM FINDINGS: Lungs: There is bibasilar compressive atelectasis. Liver: Normal. No mass. Gallbladder and bile ducts: Normal. No calcified stones. No ductal dilation. Pancreas: Normal. No ductal dilation. Spleen: Normal. No splenomegaly. Adrenals: Normal. No mass. Kidneys and ureters: Normal. No hydronephrosis. Stomach and bowel: This patient is status post gastric bypass surgery. There is modest increased feces throughout the colon consistent with constipation. Appendix: No evidence of appendicitis. Intraperitoneal space: Normal. No free air. No significant fluid collection. Vasculature: Normal. No abdominal aortic aneurysm. Lymph nodes: Normal. No enlarged lymph nodes. Bladder: Unremarkable as visualized. Reproductive: Unremarkable as visualized. Bones/joints: Mild central spinal stenosis L3-4. Soft tissues: Small right inguinal hernia. IMPRESSION: 1. This patient is status post gastric bypass surgery. 2. There is modest increased feces throughout the colon consistent with constipation. Electronically signed by: Parag Salvador On 02/26/2019 23:22:23 PM
[2019-02-26] MEDS ORDERED: ZOFR4TAB16 PO (23:45)
[2019-02-27 00:22] VITALS: BP 143/77
== END 2019-02-27 00:30 | disposition home or self-care (01) ==
LOC: M ED 18:51 → EDBD 18:51 → M ED 02-27 00:30
DX: R11.10 Vomiting, unspecified (principal); R19.7 Diarrhea, unspecified; E11.9 Type 2 diabetes mellitus without complications; I10 Essential (primary) hypertension; E78.5 Hyperlipidemia, unspecified; F31.9 Bipolar disorder, unspecified; I25.2 Old myocardial infarction; Z79.899 Other long term (current) drug therapy; Z79.82 Long term (current) use of aspirin; Z79.4 Long term (current) use of insulin; Z88.5 Allergy status to narcotic agent; Z88.8 Allergy status to other drugs, medicaments and biological substances; F17.210 Nicotine dependence, cigarettes, uncomplicated
CPT/HCPCS: 74177; 80048; 80076; 83690; 85025; 93041; 96360; 96361; 99285; Q9963; Q9967

== ENCOUNTER 2019-03-11 16:50 | Emergency (ER) | payer MEDICARE, MEDICAID ==
[~2019-03-11] VITALS: Ht 177.8 cm; Wt 84.6 kg
[2019-03-11 16:50] VITALS: BP 137/71
[~2019-03-11 16:50] MED LIST changes: +ZOFR4TAB16 PO
[2019-03-11] MEDS ORDERED: REME30TA PO (17:06)
[2019-03-11] MEDS ORDERED: HUMA100I5 SC (17:06)
[2019-03-11] MEDS ORDERED: GABA-843 PO (17:06)
[2019-03-11] MEDS ORDERED: LOSA25TA14 PO (17:06)
[2019-03-11 18:19] LABS: HEMATOCRIT 32.6 % (42.0-52.0); HEMOGLOBIN 10.4 g/dl (13.5-17.5); MEAN CORPUSCULAR HEMOGLOBIN 25.4 pg (27.0-33.0); MEAN CORPUSCULAR HGB CONC 31.9 g/dl (32.0-36.5); MEAN CORPUSCULAR VOLUME 79.7 fl (80.0-96.0); PLATELET COUNT, AUTOMATED 263 10^3/uL (150-450); RED BLOOD COUNT 4.09 10^6/uL (4.30-6.10)
[2019-03-11 18:48] LABS: AMPHETAMINES LEVEL URINE NEGATIVE (NEGATIVE); BARBITURATES URINE NEGATIVE (NEGATIVE); BENZODIAZEPINES URINE NEGATIVE (NEGATIVE); CANNABINOIDS URINE NEGATIVE (NEGATIVE); COCAINE METABOLITE URINE NEGATIVE (NEGATIVE); METHADONE URINE NEGATIVE (NEGATIVE); OPIATES URINE NEGATIVE (NEGATIVE); PHENCYCLIDINE URINE NEGATIVE (NEGATIVE)
[2019-03-11 18:55] LABS: ACETAMINOPHEN LEVEL < 2.0 UG/ML (10.0-30.0); ALBUMIN 3.3 GM/DL (3.2-5.2); ALT/SGPT 34 U/L (12-78); BILIRUBIN,DIRECT 0.1 MG/DL (0.0-0.2); BILIRUBIN,TOTAL 0.2 MG/DL (0.2-1.0); BLOOD UREA NITROGEN 14 MG/DL (7-18); CALCIUM LEVEL 8.8 MG/DL (8.5-10.1); CARBON DIOXIDE LEVEL 26 MEQ/L (21-32); CHLORIDE LEVEL 110 MEQ/L (98-107); CREATININE FOR GFR 0.93 MG/DL (0.70-1.30); ETHYL ALCOHOL (ETHANOL) < 0.003 % (0.000-0.010); GLOMERULAR FILTRATION RATE > 60.0 (>60); GLUCOSE, FASTING 173 MG/DL (70-100); SALICYLATE LEVEL 4.1 MG/DL (5.0-30.0); SODIUM LEVEL 142 MEQ/L (136-145); THYROID STIMULATING HORMONE 0.616 uIU/ML (0.358-3.740); TOTAL PROTEIN 6.3 GM/DL (6.4-8.2)
[2019-03-11] MEDS ORDERED: LORazepam 1 MG TAB PO STA (20:07)
[2019-03-12] MEDS ORDERED: ARIP1TAB6 PO (14:56)
== END 2019-03-11 20:48 | disposition left against medical advice (07) ==
LOC: M ED 16:50
DX: F41.1 Generalized anxiety disorder (principal); E11.9 Type 2 diabetes mellitus without complications; I10 Essential (primary) hypertension; E78.9 Disorder of lipoprotein metabolism, unspecified; F10.20 Alcohol dependence, uncomplicated; Z79.899 Other long term (current) drug therapy; Z79.82 Long term (current) use of aspirin; Z79.4 Long term (current) use of insulin; Z88.5 Allergy status to narcotic agent; Z88.8 Allergy status to other drugs, medicaments and biological substances; F17.210 Nicotine dependence, cigarettes, uncomplicated
CPT/HCPCS: 36415; 80048; 80076; 80307; 84443; 85027; 99284; G0480

== ENCOUNTER 2019-03-12 13:47 | Emergency (ER) | payer MEDICARE, MEDICAID ==
[~2019-03-12] VITALS: Ht 177.8 cm; Wt 81.8 kg
[~2019-03-12 13:47] MED LIST changes: +GABA-843 PO; +HUMA100I5 SC; +REME30TA PO
[2019-03-12] MEDS ORDERED: NS 1,000 ML IV ONE (14:15)
--- NOTE | 2019-03-12 14:33 | REP ---
CT BRAIN WITHOUT IV CONTRAST: CT brain performed without IV contrast. Ventricles are normal in size and position with no midline shift of mass effect. Clements-white differentiation is well maintained. There is no acute intracranial hemorrhage or extra-axial fluid collection. Bone window examination demonstrates no osseous abnormality. There appear to be mild vascular calcifications in the carotid siphons. IMPRESSION: Essentially negative noncontrast CT brain. Mild vascular calcifications in the carotid siphons. Electronically Signed by Fito Clements MD 03/14/2019 10:55 P
[2019-03-12 14:45] LABS: VENOUS BASE EXCESS -0.4 (-2.0-2.0); VENOUS HCO3 25.7 MEQ/L (23.0-27.0); VENOUS O2 SATURATION 85.4 % (60.0-80.0); VENOUS PARTIAL PRESSURE CO2 48.4 mmHg (38.0-50.0); VENOUS PARTIAL PRESSURE O2 52.4 mmHg (30.0-50.0); VENOUS PH 7.343 UNITS (7.330-7.430); VENOUS STANDARD HCO3 23.9 MEQ/L; VENOUS TOTAL CO2 27.2 MEQ/L (24.0-28.0)
[2019-03-12 14:54] LABS: BASO # 0.1 10^3/uL (0.0-0.2); BASO % 1.9 % (0.0-1.0); EOS # 0.4 10^3/uL (0.0-0.50); EOS % 10.1 % (0.0-3.0); HEMATOCRIT 35.7 % (42.0-52.0); HEMOGLOBIN 11.3 g/dl (13.5-17.5); LYMPH # 1.4 10^3/uL (1.5-4.5); MEAN CORPUSCULAR HEMOGLOBIN 25.7 pg (27.0-33.0); MEAN CORPUSCULAR HGB CONC 31.7 g/dl (32.0-36.5); MEAN CORPUSCULAR VOLUME 81.3 fl (80.0-96.0); MONO # 0.3 10^3/uL (0.0-0.8); MONO % 6.8 % (0.0-5.0); NEUTROPHILS % 48.2 % (36.0-66.0); PLATELET COUNT, AUTOMATED 259 10^3/uL (150-450); RED BLOOD COUNT 4.39 10^6/uL (4.30-6.10); WHITE BLOOD COUNT 4.2 10^3/uL (4.0-10.0)
[2019-03-12] MEDS ORDERED: ARIP1TAB6 PO (14:56)
[2019-03-12 15:04] LABS: INR 0.89; PROTHROMBIN TIME 11.8 SECONDS (11.8-14.0)
--- NOTE | 2019-03-12 15:04 | REP ---
CHEST, SINGLE VIEW: There is no evidence of acute infiltrate. No pleural effusion is seen. The heart is normal in size. The mediastinal silhouette is unremarkable. The visualized osseous structures are intact. IMPRESSION: No acute pulmonary disease. Electronically Signed by Fito Clements MD 03/14/2019 10:58 P
[2019-03-12 15:05] LABS: PARTIAL THROMBOPLASTIN TIME 26.7 SECONDS (25.0-38.4)
[2019-03-12 15:20] LABS: OSMOLALITY SERUM 296 MOSM/KG (275-295)
[2019-03-12 15:28] LABS: ACETAMINOPHEN LEVEL < 2.0 UG/ML (10.0-30.0); ALBUMIN 3.4 GM/DL (3.2-5.2); ALT/SGPT 32 U/L (12-78); BILIRUBIN,DIRECT 0.1 MG/DL (0.0-0.2); BILIRUBIN,TOTAL 0.3 MG/DL (0.2-1.0); BLOOD UREA NITROGEN 12 MG/DL (7-18); CALCIUM LEVEL 8.3 MG/DL (8.5-10.1); CARBON DIOXIDE LEVEL 27 MEQ/L (21-32); CHLORIDE LEVEL 105 MEQ/L (98-107); CK-MB VALUE MASS 3.6 NG/ML (<3.6); CPK CREATINE PHOSPHOKINASE 161 U/L (39-308); CREATININE FOR GFR 0.81 MG/DL (0.70-1.30); ETHYL ALCOHOL (ETHANOL) < 0.003 % (0.000-0.010); GLOMERULAR FILTRATION RATE > 60.0 (>60); GLUCOSE, FASTING 287 MG/DL (70-100); MB/CK RELATIVE INDEX 2.24 (< OR =4); POTASSIUM SERUM 4.3 MEQ/L (3.5-5.1); SALICYLATE LEVEL 3.9 MG/DL (5.0-30.0); SODIUM LEVEL 138 MEQ/L (136-145); TOTAL PROTEIN 6.4 GM/DL (6.4-8.2); TROPONIN I < 0.02 NG/ML (< 0.10)
[2019-03-12 16:24] LABS: AMPHETAMINES LEVEL URINE NEGATIVE (NEGATIVE); BARBITURATES URINE NEGATIVE (NEGATIVE); BENZODIAZEPINES URINE NEGATIVE (NEGATIVE); CANNABINOIDS URINE NEGATIVE (NEGATIVE); COCAINE METABOLITE URINE NEGATIVE (NEGATIVE); METHADONE URINE NEGATIVE (NEGATIVE); OPIATES URINE NEGATIVE (NEGATIVE); PHENCYCLIDINE URINE NEGATIVE (NEGATIVE)
[2019-03-12 17:30] VITALS: BP 171/85
--- NOTE | 2019-03-12 23:45 | ECGEPIP ---
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
== END 2019-03-12 18:30 | disposition left against medical advice (07) ==
LOC: M ED 13:47
DX: G93.41 Metabolic encephalopathy (principal); I25.10 Atherosclerotic heart disease of native coronary artery without angina pectoris; E11.9 Type 2 diabetes mellitus without complications; I10 Essential (primary) hypertension; E78.5 Hyperlipidemia, unspecified; F10.20 Alcohol dependence, uncomplicated; Z72.0 Tobacco use; Z98.84 Bariatric surgery status; Z98.61 Coronary angioplasty status; Z53.21 Procedure and treatment not carried out due to patient leaving prior to being seen by health care provider; Z79.82 Long term (current) use of aspirin; Z79.4 Long term (current) use of insulin; Z79.899 Other long term (current) drug therapy; Z88.5 Allergy status to narcotic agent; Z88.8 Allergy status to other drugs, medicaments and biological substances
CPT/HCPCS: 70450; 71045; 80048; 80076; 80307; 81001; 82140; 82550; 82553; 82803; 83605; 83930; 84443; 84484; 85025; 85610; 85730; 87040; 93005; 93041; 99285; G0480

== ENCOUNTER 2019-03-15 12:26 | Inpatient (IN) | payer MEDICARE, MEDICAID ==
[~2019-03-15] VITALS: Ht 177.8 cm; Wt 85.6 kg
[2019-03-15] MEDS ORDERED: LAMO25TA4 (12:55)
[2019-03-15 14:12] LABS: HEMATOCRIT 36.7 % (42.0-52.0); HEMOGLOBIN 11.7 g/dl (13.5-17.5); MEAN CORPUSCULAR HEMOGLOBIN 26.2 pg (27.0-33.0); MEAN CORPUSCULAR HGB CONC 31.9 g/dl (32.0-36.5); MEAN CORPUSCULAR VOLUME 82.3 fl (80.0-96.0); PLATELET COUNT, AUTOMATED 291 10^3/uL (150-450); RED BLOOD COUNT 4.46 10^6/uL (4.30-6.10); WHITE BLOOD COUNT 4.7 10^3/uL (4.0-10.0)
[2019-03-15 14:40] LABS: AMPHETAMINES LEVEL URINE NEGATIVE (NEGATIVE); BARBITURATES URINE NEGATIVE (NEGATIVE); BENZODIAZEPINES URINE NEGATIVE (NEGATIVE); CANNABINOIDS URINE NEGATIVE (NEGATIVE); COCAINE METABOLITE URINE NEGATIVE (NEGATIVE); METHADONE URINE NEGATIVE (NEGATIVE); OPIATES URINE NEGATIVE (NEGATIVE); PHENCYCLIDINE URINE NEGATIVE (NEGATIVE)
[2019-03-15 14:58] LABS: ACETAMINOPHEN LEVEL < 2.0 UG/ML (10.0-30.0); ALBUMIN 3.5 GM/DL (3.2-5.2); ALT/SGPT 35 U/L (12-78); BILIRUBIN,DIRECT < 0.1 MG/DL (0.0-0.2); BILIRUBIN,TOTAL 0.3 MG/DL (0.2-1.0); BLOOD UREA NITROGEN 10 MG/DL (7-18); CALCIUM LEVEL 8.9 MG/DL (8.5-10.1); CARBON DIOXIDE LEVEL 31 MEQ/L (21-32); CHLORIDE LEVEL 107 MEQ/L (98-107); CREATININE FOR GFR 0.83 MG/DL (0.70-1.30); ETHYL ALCOHOL (ETHANOL) < 0.003 % (0.000-0.010); GLOMERULAR FILTRATION RATE > 60.0 (>60); GLUCOSE, FASTING 160 MG/DL (70-100); POTASSIUM SERUM 4.3 MEQ/L (3.5-5.1); SALICYLATE LEVEL 3.6 MG/DL (5.0-30.0); SODIUM LEVEL 141 MEQ/L (136-145); TOTAL PROTEIN 6.7 GM/DL (6.4-8.2)
[2019-03-15] MEDS ORDERED: MAALOX 30 ML SUSP *UDC PO PRN (16:45)
[2019-03-15] MEDS ORDERED: GLUCAGON FOR INJ 1 MG VIAL (J1610) SC PRN (16:45)
[2019-03-15] MEDS ORDERED: GLUCOSE 4 GM CHEW TABLET PO PRN (16:45)
[2019-03-15] MEDS ORDERED: MOM 30ML SUSPENSION UDC PO PRN (16:45)
[2019-03-15] MEDS ORDERED: DEXTROSE 50% 50 ML SYRINGE IV PRN (16:45)
[2019-03-15] MEDS ORDERED: OLANZapine ORAL DISINTEGRATING TAB 5MG PO PRN (16:45)
[2019-03-15] MEDS ORDERED: D 202000 PO (17:12)
[2019-03-15] MEDS: HumaLOG INSULIN (NovoLOG) PER UNIT SC SCH ×2 (17:30→21:11)
[2019-03-15] MEDS: MIRTAZAPINE 15 MG TAB PO PRN (19:37)
[2019-03-15 20:37] VITALS: BP 148/73
[2019-03-15] MEDS: GABAPENTIN 300 MG CAP PO SCH (21:10)
[2019-03-15] MEDS: ACETAMINOPHEN TAB 650MG DOSE (2X325MG) PO PRN (21:10)
[2019-03-15] MEDS: ARIPiprazole 10 MG TAB PO SCH (21:10)
[2019-03-15] MEDS ORDERED: PILL CUTTER 1 EACH XX PRN (21:15)
[2019-03-15] MEDS: IRBESARTAN 150 MG TAB PO SCH (21:23)
[2019-03-16 06:46] VITALS: BP 129/66
[2019-03-16] MEDS: HumaLOG INSULIN (NovoLOG) PER UNIT SC SCH ×4 (06:47→22:10)
[2019-03-16] MEDS: VITAMIN D 1,000 INTERNATIONAL UNITS TABLET PO SCH (08:55)
[2019-03-16] MEDS: ASPIRIN 325 MG TAB PO SCH (08:55)
[2019-03-16] MEDS: GABAPENTIN 300 MG CAP PO SCH ×2 (08:55→22:08)
[2019-03-16] MEDS: CYANOCOBALAMIN 500 MCG TAB PO SCH (08:55)
[2019-03-16] MEDS: ARIPiprazole 10 MG TAB PO SCH (08:55)
[2019-03-16] MEDS: ATORVASTATIN 20 MG TAB PO SCH (08:55)
[2019-03-16] MEDS: LEVEMIR (INSULIN DETEMIR) 1 UNITS/0.01ML SC SCH (08:56)
[2019-03-16] MEDS: NICOTINE 21MG/24HR 1 EA TRANSDERMAL TD SCH (08:56)
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
[2019-03-16 18:00] VITALS: BP 138/72
[2019-03-16] MEDS ORDERED: rOPINIRole 0.25 MG TAB(REQUIP) PO SCH (21:00)
[2019-03-16] MEDS: IRBESARTAN 150 MG TAB PO SCH (22:08)
[2019-03-16] MEDS: CitaloPRAM (CeleXA) 10 MG TABLET PO SCH (22:08)
[2019-03-16] MEDS: ARIPiprazole 15 MG TAB (AbiLIFY) PO SCH (22:08)
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
[2019-03-17 06:40] VITALS: BP 122/66
[2019-03-17 07:08] LABS: BASO # 0.1 10^3/uL (0.0-0.2); BASO % 1.7 % (0.0-1.0); EOS # 0.6 10^3/uL (0.0-0.50); EOS % 10.5 % (0.0-3.0); HEMATOCRIT 37.5 % (42.0-52.0); LYMPH # 1.8 10^3/uL (1.5-4.5); LYMPH % 33.5 % (24.0-44.0); MEAN CORPUSCULAR HEMOGLOBIN 25.8 pg (27.0-33.0); MEAN CORPUSCULAR VOLUME 80.5 fl (80.0-96.0); MONO # 0.4 10^3/uL (0.0-0.8); MONO % 6.9 % (0.0-5.0); NEUTROPHILS # 2.5 10^3/uL (1.8-7.7); NEUTROPHILS % 47.2 % (36.0-66.0); PLATELET COUNT, AUTOMATED 296 10^3/uL (150-450); RED BLOOD COUNT 4.66 10^6/uL (4.30-6.10); WHITE BLOOD COUNT 5.3 10^3/uL (4.0-10.0)
[2019-03-17 07:38] LABS: PERCENT SATURATION 18.8 % (19.7-50.0)
[2019-03-17 08:10] VITALS: BP 119/60
[2019-03-17] MEDS: HumaLOG INSULIN (NovoLOG) PER UNIT SC SCH ×4 (08:11→21:00)
[2019-03-17] MEDS: ATORVASTATIN 20 MG TAB PO SCH (08:11)
[2019-03-17] MEDS: CYANOCOBALAMIN 500 MCG TAB PO SCH (08:11)
[2019-03-17] MEDS: ASPIRIN 325 MG TAB PO SCH (08:11)
[2019-03-17] MEDS: VITAMIN D 1,000 INTERNATIONAL UNITS TABLET PO SCH (08:11)
[2019-03-17] MEDS: GABAPENTIN 300 MG CAP PO SCH ×2 (08:11→21:32)
[2019-03-17] MEDS: ARIPiprazole 15 MG TAB (AbiLIFY) PO SCH ×2 (08:11→21:16)
[2019-03-17] MEDS: LEVEMIR (INSULIN DETEMIR) 1 UNITS/0.01ML SC SCH (08:13)
[2019-03-17] MEDS: NICOTINE 21MG/24HR 1 EA TRANSDERMAL TD SCH (08:13)
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
[2019-03-17] MEDS ORDERED: VITAMIN D 50,000 UNITS CAPSULE (ERGOCALCIFEROL 1.25MG) PO SCH (09:00)
--- NOTE | 2019-03-17 14:23 | IPNPDOC ---
Text Note Date of Service 03/17/19. NOTE S: Notified by staff that Patient requesting increase in roperinole for restless leg. His diabetes is poorly controlled. O: Vitals as below Blood sugars: Item Value Date Time Fasting Glucose 160 MG/DL H 03/15/19 1353 Bedside Glucose (Misc Panel) 336 MG/DL H 03/17/19 1214 Bedside Glucose (Misc Panel) 503 MG/DL *H 03/17/19 0819 Bedside Glucose (Misc Panel) 360 MG/DL H 03/17/19 0602 Bedside Glucose (Misc Panel) 274 MG/DL H 03/16/19 1711 Bedside Glucose (Misc Panel) 344 MG/DL H 03/16/19 1218 Current Medications Medications (Trade) Dose Ordered Sig/Vera Route PRN Reason Start Time Stop Time Status Last Admin Dose Admin Acetaminophen (Tylenol Tab) 650 mg Q6HP PRN PO HEADACHE or DISCOMFORT 03/15/19 16:45 03/15/19 21:10 Al Hydrox/Mg Hydrox/Simethicone (Mylanta) 30 ml Q4HP PRN PO HEARTBURN/INDIGESTION 03/15/19 16:45 Aripiprazole (AbiLIFY) 10 mg BID PO 03/15/19 21:00 03/16/19 13:24 DC 03/16/19 08:55 Aripiprazole (AbiLIFY) 15 mg BID PO 03/16/19 21:00 03/17/19 08:11 Aspirin (Aspirin) 325 mg DAILY PO 03/16/19 09:00 03/17/19 08:11 Atorvastatin Calcium (Lipitor) 40 mg DAILY PO 03/16/19 09:00 03/17/19 08:11 Citalopram Hydrobromide (CeleXA) 10 mg QHS PO 03/16/19 21:00 03/16/19 22:08 Cyanocobalamin (Vitamin B12) 1,000 mcg DAILY PO 03/16/19 09:00 03/17/19 08:11 Dextrose (Dextrose 50%) 25 ml ASDIRECTED PRN IV SEE LABEL COMMENTS 03/15/19 16:45 Gabapentin (Neurontin) 300 mg BID PO 03/15/19 21:00 03/17/19 08:11 Glucagon (Glucagon) 1 mg ASDIRECTED PRN SC SEE LABEL COMMENTS 03/15/19 16:45 Glucose (Glucose) 16 GM ASDIRECTED PRN PO SEE LABEL COMMENTS 03/15/19 16:45 Home Med (Med Rec Complete!) ASDIRECTED XX 03/15/19 17:30 03/15/19 17:30 DC Hydroxyzine HCl (Atarax) 50 mg Q6HP PRN PO ANXIETY/AGITATION 03/16/19 13:30 Insulin Detemir (Levemir Insulin) 35 units DAILY SC 03/16/19 09:00 03/17/19 13:45 DC 03/17/19 08:13 Insulin Detemir (Levemir Insulin) 38 units DAILY SC 03/18/19 09:00 Insulin Human Lispro (HumaLOG INSULIN) See Protocol Table AC KS 03/15/19 17:30 03/17/19 13:45 DC 03/17/19 12:18 Insulin Human Lispro (HumaLOG INSULIN) See Protocol Table AC KS 03/17/19 17:30 Insulin Human Lispro (HumaLOG INSULIN) See Protocol Table QHS SC 03/15/19 21:00 03/15/19 21:11 Irbesartan (Avapro) 75 mg QHS PO 03/15/19 21:00 03/16/19 22:08 Magnesium Hydroxide (Milk Of Magnesia) 30 ml DAILYPRN PRN PO CONSTIPATION 03/15/19 16:45 Mirtazapine (Remeron) 15 mg QHSP PRN PO SLEEP 03/15/19 17:00 03/15/19 19:37 Nicotine (Nicoderm Cq 21mg) 1 patch DAILY TD 03/16/19 09:00 Olanzapine (ZyPREXA ZYDIS) 5 mg Q8H PRN PO ANXIETY/AGGRESSION 03/15/19 16:45 03/15/19 20:28 Ropinirole HCl (Requip) 0.5 mg QHS PO 03/16/19 21:00 03/17/19 13:45 DC 03/16/19 22:07 Ropinirole HCl (Requip) 0.75 mg QHS PO 03/17/19 21:00 Vitamin D (Drisdol) 50,000 units We@0900 PO 03/17/19 09:00 03/17/19 08:10 Vitamin D (Vitamin D) 2,000 units DAILY PO 03/16/19 09:00 03/17/19 08:11 A/P: Diabetes - on nursing home insulin with hyperglycemia - Will increase levemir 35 to 38 unit and increase SSI coverage HTN - stable Restless leg syndrome - will increase ropinirole VS,Fishbone, I+O VS, Fishbone, I+O Laboratory Tests 03/17/19 06:21 Red Blood Count 4.66, Mean Corpuscular Volume 80.5, Mean Corpuscular Hemoglobin 25.8 L, Mean Corpuscular Hemoglobin Concent 32.0, Red Cell Distribution Width 18.0 H, Neutrophils (%) (Auto) 47.2, Lymphocytes (%) (Auto) 33.5, Monocytes (%) (Auto) 6.9 H, Eosinophils (%) (Auto) 10.5 H, Basophils (%) (Auto) 1.7 H, Neutrophils # (Auto) 2.5, Lymphocytes # (Auto) 1.8, Monocytes # (Auto) 0.4, Eosinophils # (Auto) 0.6 H, Basophils # (Auto) 0.1 Vital Signs Date Time Temp Pulse Resp B/P (MAP) Pulse Ox O2 Delivery O2 Flow Rate FiO2 03/17/19 08:10 98.9 95 16 119/60 (79) 03/15/19 20:37 96 03/15/19 20:08 Room Air KORY GU DO Mar 17, 2019 13:47
[2019-03-17 19:00] VITALS: BP 119/70
[2019-03-17] MEDS: IRBESARTAN 150 MG TAB PO SCH (21:15)
[2019-03-17] MEDS: rOPINIRole 0.25 MG TAB(REQUIP) PO SCH (21:16)
[2019-03-17] MEDS: CitaloPRAM (CeleXA) 10 MG TABLET PO SCH (21:16)
[2019-03-18 06:40] VITALS: BP 118/64
[2019-03-18] MEDS: HumaLOG INSULIN (NovoLOG) PER UNIT SC SCH ×5 (06:54→21:00)
[2019-03-18] MEDS: ASPIRIN 325 MG TAB PO SCH (08:55)
[2019-03-18] MEDS: ATORVASTATIN 20 MG TAB PO SCH (08:56)
[2019-03-18] MEDS: CYANOCOBALAMIN 500 MCG TAB PO SCH (08:56)
[2019-03-18] MEDS: GABAPENTIN 300 MG CAP PO SCH ×2 (08:56→21:27)
[2019-03-18] MEDS: NICOTINE 21MG/24HR 1 EA TRANSDERMAL TD SCH (08:56)
[2019-03-18] MEDS: VITAMIN D 1,000 INTERNATIONAL UNITS TABLET PO SCH (08:56)
[2019-03-18] MEDS: ARIPiprazole 15 MG TAB (AbiLIFY) PO SCH ×2 (08:56→21:27)
[2019-03-18] MEDS ORDERED: LEVEMIR (INSULIN DETEMIR) 1 UNITS/0.01ML SC SCH (09:00)
[2019-03-18] MEDS: hydrOXYzine 50 MG TAB PO PRN (11:16)
--- NOTE | 2019-03-18 11:54 | IPNPDOC ---
Text Note Date of Service 03/18/19. NOTE Received call because blood sugar above 500 Item Value Date Time Bedside Glucose (Misc Panel) 449 MG/DL H 03/18/19 1131 Bedside Glucose (Misc Panel) 544 MG/DL *H 03/18/19 1118 Bedside Glucose (Misc Panel) 399 MG/DL H 03/18/19 0608 Bedside Glucose (Misc Panel) 187 MG/DL H 03/17/19 2107 Bedside Glucose (Misc Panel) 223 MG/DL H 03/17/19 1700 Will increase levemir to 40units in AM, give 8 units lispro with meals in addition to the sliding scale, 24 hours of glipizide and monitor blood sugars. If persistently above 400, may need to consider inpatient admission for IV insulin intensive treatments. VS,Fishbone, I+O VS, Fishbone, I+O Vital Signs Date Time Temp Pulse Resp B/P (MAP) Pulse Ox O2 Delivery O2 Flow Rate FiO2 03/18/19 08:26 Room Air 03/18/19 06:40 98.2 80 12 118/64 (82) 03/15/19 20:37 96 KORY GU DO Mar 18, 2019 11:54
[2019-03-18] MEDS: glyBURIDE 2.5 MG TAB PO SCH (17:31)
[2019-03-18 18:00] VITALS: BP 116/71
[2019-03-18] MEDS: rOPINIRole 0.25 MG TAB(REQUIP) PO SCH (21:27)
[2019-03-18] MEDS: CitaloPRAM (CeleXA) 10 MG TABLET PO SCH (21:27)
[2019-03-18] MEDS: IRBESARTAN 150 MG TAB PO SCH (22:06)
[2019-03-19 06:40] VITALS: BP 119/67
[2019-03-19] MEDS: HumaLOG INSULIN (NovoLOG) PER UNIT SC SCH ×7 (06:45→21:00)
[2019-03-19] MEDS: glyBURIDE 2.5 MG TAB PO SCH ×2 (07:35→17:30)
[2019-03-19] MEDS: NICOTINE 21MG/24HR 1 EA TRANSDERMAL TD SCH (09:00)
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
[2019-03-19] MEDS: ATORVASTATIN 20 MG TAB PO SCH (09:39)
[2019-03-19] MEDS: CYANOCOBALAMIN 500 MCG TAB PO SCH (09:40)
[2019-03-19] MEDS: GABAPENTIN 300 MG CAP PO SCH ×2 (09:40→21:17)
[2019-03-19] MEDS: LEVEMIR (INSULIN DETEMIR) 1 UNITS/0.01ML SC SCH (09:40)
[2019-03-19] MEDS: ARIPiprazole 15 MG TAB (AbiLIFY) PO SCH ×2 (09:40→21:17)
[2019-03-19] MEDS: VITAMIN D 1,000 INTERNATIONAL UNITS TABLET PO SCH (09:40)
[2019-03-19] MEDS: ASPIRIN 325 MG TAB PO SCH (09:40)
[2019-03-19] MEDS: ACETAMINOPHEN TAB 650MG DOSE (2X325MG) PO PRN (15:05)
[2019-03-19 17:47] VITALS: BP 121/57
[2019-03-19] MEDS: IRBESARTAN 150 MG TAB PO SCH (21:16)
[2019-03-19] MEDS: rOPINIRole 0.25 MG TAB(REQUIP) PO SCH (21:17)
[2019-03-19] MEDS: CitaloPRAM (CeleXA) 10 MG TABLET PO SCH (21:17)
[2019-03-19] MEDS: hydrOXYzine 50 MG TAB PO PRN (23:02)
[2019-03-20] MEDS: HumaLOG INSULIN (NovoLOG) PER UNIT SC SCH ×7 (07:00→21:00)
[2019-03-20 07:17] VITALS: BP 107/62
[2019-03-20] MEDS: NICOTINE 21MG/24HR 1 EA TRANSDERMAL TD SCH (09:00)
[2019-03-20] MEDS: GABAPENTIN 300 MG CAP PO SCH ×2 (09:22→20:59)
[2019-03-20] MEDS: ATORVASTATIN 20 MG TAB PO SCH (09:22)
[2019-03-20] MEDS: LEVEMIR (INSULIN DETEMIR) 1 UNITS/0.01ML SC SCH (09:22)
[2019-03-20] MEDS: VITAMIN D 1,000 INTERNATIONAL UNITS TABLET PO SCH (09:22)
[2019-03-20] MEDS: ASPIRIN 325 MG TAB PO SCH (09:22)
[2019-03-20] MEDS: ARIPiprazole 15 MG TAB (AbiLIFY) PO SCH ×2 (09:22→21:01)
[2019-03-20] MEDS: CYANOCOBALAMIN 500 MCG TAB PO SCH (09:22)
--- NOTE | 2019-03-20 11:55 | IPNPDOC ---
Text Note Date of Service The patient was seen on 03/20/19. NOTE S: monitoring patient blood sugars. some improvement glyburide for 24 hours. Slowly improving. O: Current regimen: 8 unit lispro PLUS sliding scale AC, Levemir 40 units daily (new dose started 03/19). Item Value Date Time Bedside Glucose (Misc Panel) 305 MG/DL H 03/20/19 1135 Bedside Glucose (Misc Panel) 302 MG/DL H 03/20/19 0613 Bedside Glucose (Misc Panel) 175 MG/DL H 03/19/19 2113 Bedside Glucose (Misc Panel) 90 MG/DL glyburide held 03/19/19 1701 Bedside Glucose (Misc Panel) 300 MG/DL H 03/19/19 1216 Bedside Glucose (Misc Panel) 382 MG/DL H 03/19/19 0731 Bedside Glucose (Misc Panel) 334 MG/DL H 03/19/19 0639 Bedside Glucose (Misc Panel) 204 MG/DL H 03/18/19 2124 Bedside Glucose (Misc Panel) 80 MG/DL 03/18/19 1942 Bedside Glucose (Misc Panel) 205 MG/DL H 03/18/19 1650 Fasting Glucose 160 MG/DL H glyburide started 03/15/19 1353 A/P Diabetes requiring long acting insulin with hyperglycemia - no hypoglycemia Will continue with levemir 40mg daily for 2 more days and if no improvement increase to 43 units Will restart glyburide low dose VS,Fishbone, I+O VS, Fishbone, I+O Vital Signs Date Time Temp Pulse Resp B/P (MAP) Pulse Ox O2 Delivery O2 Flow Rate FiO2 03/20/19 07:17 97.9 82 16 107/62 (77) 03/19/19 10:41 Room Air 03/15/19 20:37 96 KORY GU DO Mar 20, 2019 11:55
[2019-03-20] MEDS: glyBURIDE 2.5 MG TAB PO SCH (17:09)
[2019-03-20] MEDS ORDERED: glyBURIDE 2.5 MG TAB PO SCH (17:30)
[2019-03-20 17:54] VITALS: BP 111/67
[2019-03-20] MEDS: rOPINIRole 0.25 MG TAB(REQUIP) PO SCH (20:59)
[2019-03-20] MEDS: CitaloPRAM (CeleXA) 10 MG TABLET PO SCH (20:59)
[2019-03-20] MEDS: IRBESARTAN 150 MG TAB PO SCH (21:00)
[2019-03-21 06:29] VITALS: BP 115/69
[2019-03-21] MEDS: glyBURIDE 2.5 MG TAB PO SCH ×2 (06:53→17:30)
[2019-03-21] MEDS: HumaLOG INSULIN (NovoLOG) PER UNIT SC SCH ×7 (06:54→21:00)
[2019-03-21] MEDS: NICOTINE 21MG/24HR 1 EA TRANSDERMAL TD SCH (09:00)
[2019-03-21] MEDS: ARIPiprazole 15 MG TAB (AbiLIFY) PO SCH ×2 (09:12→21:27)
[2019-03-21] MEDS: ATORVASTATIN 20 MG TAB PO SCH (09:12)
[2019-03-21] MEDS: GABAPENTIN 300 MG CAP PO SCH ×2 (09:12→21:28)
[2019-03-21] MEDS: CYANOCOBALAMIN 500 MCG TAB PO SCH (09:12)
[2019-03-21] MEDS: VITAMIN D 1,000 INTERNATIONAL UNITS TABLET PO SCH (09:12)
[2019-03-21] MEDS: ASPIRIN 325 MG TAB PO SCH (09:12)
[2019-03-21] MEDS: LEVEMIR (INSULIN DETEMIR) 1 UNITS/0.01ML SC SCH (09:13)
[2019-03-21 17:41] VITALS: BP 131/70
[2019-03-21] MEDS: MIRTAZAPINE 15 MG TAB PO PRN (21:28)
[2019-03-21] MEDS: IRBESARTAN 150 MG TAB PO SCH (21:29)
[2019-03-21] MEDS: rOPINIRole 0.25 MG TAB(REQUIP) PO SCH (21:30)
[2019-03-21] MEDS: CitaloPRAM (CeleXA) 10 MG TABLET PO SCH (21:30)
[2019-03-22] MEDS: glyBURIDE 2.5 MG TAB PO SCH ×2 (06:28→16:47)
[2019-03-22] MEDS: HumaLOG INSULIN (NovoLOG) PER UNIT SC SCH ×7 (06:29→21:00)
[2019-03-22 06:40] VITALS: BP 112/56
[2019-03-22] MEDS: ATORVASTATIN 20 MG TAB PO SCH (08:58)
[2019-03-22] MEDS: GABAPENTIN 300 MG CAP PO SCH ×2 (08:58→20:54)
[2019-03-22] MEDS: ARIPiprazole 15 MG TAB (AbiLIFY) PO SCH ×2 (08:58→20:56)
[2019-03-22] MEDS: LEVEMIR (INSULIN DETEMIR) 1 UNITS/0.01ML SC SCH (08:58)
[2019-03-22] MEDS: CYANOCOBALAMIN 500 MCG TAB PO SCH (08:58)
[2019-03-22] MEDS: ASPIRIN 325 MG TAB PO SCH (08:58)
[2019-03-22] MEDS: VITAMIN D 1,000 INTERNATIONAL UNITS TABLET PO SCH (08:58)
[2019-03-22] MEDS: NICOTINE 21MG/24HR 1 EA TRANSDERMAL TD SCH (08:59)
[2019-03-22 16:57] VITALS: BP 109/65
[2019-03-22] MEDS: rOPINIRole 0.25 MG TAB(REQUIP) PO SCH (20:56)
[2019-03-22] MEDS: CitaloPRAM (CeleXA) 10 MG TABLET PO SCH (20:56)
[2019-03-22 20:58] VITALS: BP 120/84
[2019-03-22] MEDS: IRBESARTAN 150 MG TAB PO SCH (20:58)
[2019-03-23 06:48] VITALS: BP 141/57
[2019-03-23] MEDS: HumaLOG INSULIN (NovoLOG) PER UNIT SC SCH ×2 (07:01→07:09)
[2019-03-23] MEDS: glyBURIDE 2.5 MG TAB PO SCH (07:10)
[2019-03-23] MEDS: NICOTINE 21MG/24HR 1 EA TRANSDERMAL TD SCH (09:00)
[2019-03-23] MEDS: CYANOCOBALAMIN 500 MCG TAB PO SCH (09:24)
[2019-03-23] MEDS: ARIPiprazole 15 MG TAB (AbiLIFY) PO SCH (09:25)
[2019-03-23] MEDS: LEVEMIR (INSULIN DETEMIR) 1 UNITS/0.01ML SC SCH (09:25)
[2019-03-23] MEDS: ASPIRIN 325 MG TAB PO SCH (09:25)
[2019-03-23] MEDS: ATORVASTATIN 20 MG TAB PO SCH (09:25)
[2019-03-23] MEDS: VITAMIN D 1,000 INTERNATIONAL UNITS TABLET PO SCH (09:25)
[2019-03-23] MEDS: GABAPENTIN 300 MG CAP PO SCH (09:25)
[2019-03-23] MEDS ORDERED: HYDR50TA70 PO (09:41)
[2019-03-23] MEDS ORDERED: REME15TA PO (09:41)
[2019-03-23] MEDS ORDERED: CELE10TA PO (09:41)
[2019-03-23] MEDS ORDERED: ABIL1TAB12 PO (09:41)
[2019-03-23] MEDS ORDERED: REQU1TAB14 PO (09:41)
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
== END 2019-03-23 10:45 | disposition home or self-care (01) | DRG 885 ==
LOC: M ED 12:26 → M PSY 20:38
PROVIDERS: ADMIT Psychiatry & Neurology Psychiatry; ATTEND Psychiatry & Neurology Psychiatry
DX: F31.30 Bipolar disorder, current episode depressed, mild or moderate severity, unspecified (principal); F41.1 Generalized anxiety disorder; F10.10 Alcohol abuse, uncomplicated; E11.65 Type 2 diabetes mellitus with hyperglycemia; Z79.899 Other long term (current) drug therapy; Z79.82 Long term (current) use of aspirin; Z88.5 Allergy status to narcotic agent; Z88.8 Allergy status to other drugs, medicaments and biological substances; I25.10 Atherosclerotic heart disease of native coronary artery without angina pectoris; I10 Essential (primary) hypertension; E78.5 Hyperlipidemia, unspecified; K21.9 Gastro-esophageal reflux disease without esophagitis; G25.81 Restless legs syndrome; Z79.4 Long term (current) use of insulin

== ENCOUNTER 2019-03-29 21:06 | Inpatient (IN) | payer MEDICARE, MEDICAID ==
[~2019-03-29] VITALS: Ht 188 cm; Wt 84.4 kg
[~2019-03-29 21:06] MED LIST changes: +ABIL1TAB12 PO; +D 202000 PO; +LAMO25TA4; +REQU1TAB14 PO; +THIAMINE HCL 200 MG/2 ML VIAL (J3411) IM SCH
[2019-03-29] MEDS ORDERED: DEXTROSE 50% 50 ML SYRINGE As Ordered ONE ×2 (21:19→22:05)
[2019-03-29 21:37] LABS: BASO % 0.7 % (0.0-1.0); EOS # 0.3 10^3/uL (0.0-0.5); EOS % 5.4 % (0.0-3.0); HEMATOCRIT 34.7 % (42.0-52.0); HEMOGLOBIN 11.4 g/dl (13.5-17.5); LYMPH # 1.3 10^3/uL (1.5-5.0); LYMPH % 20.7 % (24.0-44.0); MEAN CORPUSCULAR HEMOGLOBIN 26.6 pg (27.0-33.0); MEAN CORPUSCULAR HGB CONC 32.9 g/dl (32.0-36.5); MEAN CORPUSCULAR VOLUME 81.1 fl (80.0-96.0); MONO # 0.5 10^3/uL (0.0-0.8); MONO % 8.5 % (0.0-5.0); NEUTROPHILS % 64.5 % (36.0-66.0); PLATELET COUNT, AUTOMATED 239 10^3/uL (150-450); RED BLOOD COUNT 4.28 10^6/uL (4.30-6.10); WHITE BLOOD COUNT 6.1 10^3/uL (4.0-10.0)
[2019-03-29 22:04] LABS: AMPHETAMINES LEVEL URINE NEGATIVE (NEGATIVE); BARBITURATES URINE NEGATIVE (NEGATIVE); BENZODIAZEPINES URINE NEGATIVE (NEGATIVE); CANNABINOIDS URINE NEGATIVE (NEGATIVE); COCAINE METABOLITE URINE NEGATIVE (NEGATIVE); METHADONE URINE NEGATIVE (NEGATIVE); OPIATES URINE POSITIVE (NEGATIVE); PHENCYCLIDINE URINE NEGATIVE (NEGATIVE)
[2019-03-29] MEDS ORDERED: DEXTROSE 50% 50 ML SYRINGE IV STA ×2 (22:06→23:44)
[2019-03-29] MEDS ORDERED: D10W/0.45% SODIUM CHLORIDE 1,000 ML IV SCH ×2 (22:15→23:15)
[2019-03-29] MEDS ORDERED: DEXTROSE 50% 50 ML VIAL IV ONE (22:15)
[2019-03-29] MEDS ORDERED: dexameTHASONE 20 MG/5 ML VIAL (J1100) IV ONE (22:15)
[2019-03-29] MEDS ORDERED: D5W/0.9% SODIUM CHLORIDE 1,000 ML IV SCH (22:15)
[2019-03-29 22:17] LABS: ACETAMINOPHEN LEVEL < 2.0 UG/ML (10.0-30.0); ALBUMIN 3.4 GM/DL (3.2-5.2); ALT/SGPT 33 U/L (12-78); BILIRUBIN,DIRECT 0.1 MG/DL (0.0-0.2); BILIRUBIN,TOTAL 0.3 MG/DL (0.2-1.0); BLOOD UREA NITROGEN 13 MG/DL (7-18); CALCIUM LEVEL 8.9 MG/DL (8.5-10.1); CARBON DIOXIDE LEVEL 23 MEQ/L (21-32); CHLORIDE LEVEL 102 MEQ/L (98-107); CPK CREATINE PHOSPHOKINASE 105 U/L (39-308); CREATININE FOR GFR 1.08 MG/DL (0.70-1.30); ETHYL ALCOHOL (ETHANOL) 0.052 % (0.000-0.010); GLOMERULAR FILTRATION RATE > 60.0 (>60); GLUCOSE, FASTING 37 MG/DL (70-100); POTASSIUM SERUM 2.9 MEQ/L (3.5-5.1); SALICYLATE LEVEL 4.2 MG/DL (5.0-30.0); SODIUM LEVEL 138 MEQ/L (136-145); TOTAL PROTEIN 6.5 GM/DL (6.4-8.2)
[2019-03-29] MEDS ORDERED: KCL 10MEQ/100ML SWI (KRUN) 10 MEQ in APPROPRIATE DILUENT 1 EA IV ONE ×2 (22:30→23:30)
[2019-03-29] MEDS ORDERED: ABIL1TAB12 PO (22:32)
[2019-03-29] MEDS ORDERED: REME15TA PO (22:32)
[2019-03-29] MEDS ORDERED: CITA10TA5 PO (22:32)
[2019-03-29] MEDS ORDERED: HYDR1TAB33 PO (22:32)
[2019-03-29] MEDS ORDERED: ROPI0.253 PO (22:32)
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
[2019-03-29] MEDS ORDERED: GLUCOSE 4 GM CHEW TABLET PO PRN (23:15)
[2019-03-29] MEDS ORDERED: GLUCAGON FOR INJ 1 MG VIAL (J1610) SC PRN (23:15)
[2019-03-29] MEDS ORDERED: DEXTROSE 50% 50 ML SYRINGE IV PRN (23:15)
[2019-03-29 23:32] LABS: MAGNESIUM LEVEL 1.8 MG/DL (1.8-2.4)
[2019-03-29] MEDS ORDERED: NALOXONE INJ 2 MG/2 ML SYRINGE (J2310) IV STA (23:40)
[2019-03-30] VITALS (10 sets, daily range): BP systolic 104–139; BP diastolic 55–72
[2019-03-30] MEDS ORDERED: ONDANSETRON 4MG/2ML VIAL (J2405) IV PRN (00:30)
[2019-03-30] MEDS ORDERED: D50W 325 ML in D10W 975 ML IV ONE (00:30)
[2019-03-30] MEDS ORDERED: LORazepam 2 MG TAB PO PRN (00:30)
[2019-03-30] MEDS ORDERED: DEXTROSE 50% 50 ML SYRINGE IV STA ×2 (00:50→01:53)
[2019-03-30] MEDS ORDERED: D50W 325 ML in D10W 975 ML IV SCH (01:00)
[2019-03-30] MEDS ORDERED: KCL 10MEQ/100ML SWI (KRUN) 10 MEQ in APPROPRIATE DILUENT 1 EA IV ONE ×4 (01:15)
[2019-03-30] MEDS ORDERED: POTASSIUM CHLORIDE 10 MEQ SR TABLET PO ONE (01:45)
[2019-03-30] MEDS ORDERED: DEXTROSE 15GM (40%) TUBE (GLUTOSE 15) PO ONE (02:00)
[2019-03-30] MEDS ORDERED: FOLIC ACID 1 MG in NS 50 ML IV SCH (02:00)
[2019-03-30] MEDS ORDERED: D10W 1,000 ML IV SCH (02:15)
[2019-03-30] MEDS ORDERED: MAG SULF 1GM/100ML (MAG RUN) 1 GM in APPROPRIATE DILUENT 1 EA IV ONE (02:30)
[2019-03-30] MEDS: PANTOPRAZOLE 40MG INJ (PROTONIX) (C9113) IV SCH ×2 (03:54→08:16)
[2019-03-30 05:07] LABS: HEMATOCRIT 33.2 % (42.0-52.0); HEMOGLOBIN 10.9 g/dl (13.5-17.5); MEAN CORPUSCULAR HEMOGLOBIN 26.1 pg (27.0-33.0); MEAN CORPUSCULAR HGB CONC 32.8 g/dl (32.0-36.5); MEAN CORPUSCULAR VOLUME 79.6 fl (80.0-96.0); PLATELET COUNT, AUTOMATED 251 10^3/uL (150-450); RED BLOOD COUNT 4.17 10^6/uL (4.30-6.10); WHITE BLOOD COUNT 4.9 10^3/uL (4.0-10.0)
[2019-03-30 05:37] LABS: BLOOD UREA NITROGEN 15 MG/DL (7-18); CARBON DIOXIDE LEVEL 26 MEQ/L (21-32); CHLORIDE LEVEL 104 MEQ/L (98-107); CREATININE FOR GFR 0.92 MG/DL (0.70-1.30); GLOMERULAR FILTRATION RATE > 60.0 (>60); GLUCOSE, FASTING 160 MG/DL (70-100); MAGNESIUM LEVEL 2.2 MG/DL (1.8-2.4); POTASSIUM SERUM 4.8 MEQ/L (3.5-5.1); SODIUM LEVEL 138 MEQ/L (136-145)
--- NOTE | 2019-03-30 07:21 | ECGEPIP ---
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
[2019-03-30] MEDS ORDERED: hydrOXYzine 50 MG TAB PO PRN (08:00)
[2019-03-30] MEDS ORDERED: PILL CUTTER 1 EACH XX PRN (08:15)
[2019-03-30] MEDS: ENOXAPARIN 40 MG/0.4 ML SYRINGE (J1650) SC SCH ×2 (08:17→09:00)
[2019-03-30] MEDS ORDERED: ATORVASTATIN 20 MG TAB PO SCH (09:00)
[2019-03-30] MEDS ORDERED: LEVEMIR (INSULIN DETEMIR) 1 UNITS/0.01ML SC SCH (09:00)
[2019-03-30] MEDS ORDERED: CYANOCOBALAMIN 500 MCG TAB PO SCH (09:00)
[2019-03-30] MEDS ORDERED: GABAPENTIN 300 MG CAP PO SCH (09:00)
[2019-03-30] MEDS ORDERED: VITAMIN D 1,000 INTERNATIONAL UNITS TABLET PO SCH (09:00)
[2019-03-30] MEDS ORDERED: ARIPiprazole 15 MG TAB (AbiLIFY) PO SCH (09:00)
[2019-03-30] MEDS ORDERED: PANTOPRAZOLE 40MG INJ (PROTONIX) (C9113) IV SCH (09:00)
[2019-03-30] MEDS ORDERED: ASPIRIN 325 MG TAB PO SCH (09:00)
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
--- NOTE | 2019-03-30 11:36 | MHCRPDOC ---
[facility] [place] DATE OF CONSULTATION: 03/30/19 CONSULTATION REQUESTED BY: Dr. Starks REASON FOR CONSULTATION: Suicide attempt RELEVANT HISTORY: Per medical admission note "Mr. Rust is a 48-year-old male who was brought to the ED after attempting suicide by overdosing on insulin. He was discharged from the inpatient psych unit a few days ago. When asked what happened he didn't say much, but admitted that things were not going well after he was discharged from the hospital and this is why he overdosed on insulin. When asked what opiates he took he didn't know. Currently he continues to have suicidal ideation but denies homicidal ideation. He arrived, he was initially completely altered and , his glucose was 37 , serum ethanol and opiates are positive. He received several amps of D50 and was started on D10 half-normal saline at 250ml per hour was 220. His mental status improved transiently but he became hypoglycemic again. He also received 2 doses of Narcan with minimal improvement in his mental status." Pt seen today and states he doesn't know what happened regarding his mood but started feeling depressed after he was discharged from [facility] Friday he believes b/c his medication wasn't working the same as it had been on the unit. Asked pt if he had been socializing since being discharged as he was social with his peers daily on the unit which seemed to help his mood and future outlook and states "no." States he's agreeable to being admitted again to [facility] for treatment of depression and incites that something be done with his medication so he feels well when d/c. Did speak with pt that will adjust his medications based on symptoms and tolerance when on the unit but that it appears his lack of socialization when at home most likely has a lot to do with his depressive and suicidal thoughts as that is the big difference between being on the unit at home which he agrees. States he feels "ok" today but fears going home and feeling depressed and suicidal if he doesn't get further psychiatric treatment on [facility]. PAST PSYCHIATRIC HISTORY: Previous Psychiatric Diagnosis: depression, anxiety alcohol use d/o Previous Psychiatric Admissions: 5 admissions to [facility] for depression and SI, s/p SA. Discharged for [facility] rehab 07/2018. D/c from [facility] last Friday after pt for the past 2 days prior stating he was doing very well with greatly improved mood, tolerance and benefit of medications, denial of depression and SI, appearing completely euthymic and bright, actively involved with his treatment on the unit. Suicide Attempts: SA by [facility] 20 2009 and intentional insulin OD in 2010 Psychiatric Follow-up: BI, attempted to see on Friday (03/12/19) as a walk-in but couldn't be seen Psychiatric Medications: abilify, vistaril, celxa PAST MEDICAL HISTORY: [ hypertension, insulin-dependent diabetes mellitus, status post myocardial infarction (VT), and hypercholesterolemia. FAMILY HISTORY: sister has depression PERSONAL AND SOCIAL HISTORY: Childhood: Born in [place] and raised in [place]. Father in the . 2 parent home. 1 younger sister. Good childhood. Father 2yrs ago. 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 [employer] Social Support: family Legal: denies Marital: single, one daughter 21 that lives with her boyfriend SUBSTANCE ABUSE HISTORY: alcohol (heavy alcohol use d/o in past, bal neg, 2 beers last night to help him fall asleep), other ( cannabis as a teenager, utox neg) LEGAL HISTORY: denies MENTAL STATUS EXAMINATION: General Appearance: pt appears older than stated age, resting in hospital bed, in hospital gown Build: average Demeanor: cooperative Eye Contact: poor Activity: slowed Behavior: cooperative, loss of interests, anhedonia Speech: clear, spontaneous, low in volume Mood: depressed, flat Mood "depressed" Affect: constricted, flat, congruent, anxious Thought Process: logical/linear, depressed, slow Thought Content (Delusions): none reported, denies SI, HI, AVH Thought Content (Other): none reported, appropriate Thought Content (Aggressive): none reported Perception (Hallucinations): none reported Perception (Other): none reported Cognition (Impairment of): none reported Cognition(Intelligence Est.): average Oriented: Awake, Alert, Oriented times three Insight: poor Judgment: Poor Psychosis: Denies DIAGNOSIS: bipolar depression (bipolar 2 d/o) SAPNA alcohol use d/o in short-term remission PLAN: 1. admit to [facility] Vital Signs Vital Signs Date Time Temp Pulse Resp B/P (MAP) Pulse Ox O2 Delivery O2 Flow Rate FiO2 03/30/19 07:00 98.7 87 18 112/55 (74) 96 03/29/19 21:16 Room Air Laboratory Data 24H Labs Laboratory Tests 2 03/29/19 21:18: Bedside Glucose (Misc Panel) 35*L 03/29/19 21:24: Immature Granulocyte % (Auto) 0.2, White Blood Count 6.1, Red Blood Count 4.28L, Hemoglobin 11.4L, Hematocrit 34.7L, Mean Corpuscular Volume 81.1, Mean Corpuscular Hemoglobin 26.6L, Mean Corpuscular Hemoglobin Concent 32.9, Red Cell Distribution Width 17.2H, Platelet Count 239, Neutrophils (%) (Auto) 64.5, Ly mphocytes (%) (Auto) 20.7L, Monocytes (%) (Auto) 8.5H, Eosinophils (%) (Auto) 5.4H, Basophils (%) (Auto) 0.7, Neutrophils # (Auto) 4.0, Lymphocytes # (Auto) 1.3L, Monocytes # (Auto) 0.5, Eosinophils # (Auto) 0.3, Basophils # (Auto) 0.0, Nucleated Red Blood Cells % (auto) 0.0, Anion Gap 13, Glomerular Filtration Rate > 60.0, Calcium Level 8.9, Magnesium Level 1.8, Aspartate Amino Transf (AST/SGOT) 14, Alanine Aminotransferase (ALT/SGPT) 33, Alkaline Phosphatase 130H, Total Bilirubin 0.3, Direct Bilirubin 0.1, Total Creatine Kinase 105, Total Protein 6.5, Albumin 3.4, Albumin/Globulin Ratio 1.10, Thyroid Stimulating Hormone (TSH) 1.550, Salicylates Level 4.2L, Acetaminophen Level < 2.0L, Ethyl Alcohol Level 0.052H 03/29/19 21:27: Urine Amphetamines Screen NEGATIVE, Urine Benzodiazepines Screen NEGATIVE, Urine Opiates Screen POSITIVEH, Urine Methadone Screen NEGATIVE, Urine Barbiturates Screen NEGATIVE, Urine Phencyclidine Screen NEGATIVE, Urine Cocaine Metabolite Screen NEGATIVE, Urine Cannabinoids Screen NEGATIVE 03/29/19 21:29: Bedside Glucose (Misc Panel) 112H 03/29/19 22:04: Bedside Glucose (Misc Panel) 26*L 03/29/19 22:40: Bedside Glucose (Misc Panel) 92 03/29/19 23:06: Bedside Glucose (Misc Panel) 49L 03/29/19 23:43: Bedside Glucose (Misc Panel) 49L 03/30/19 00:29: Bedside Glucose (Misc Panel) 68L 03/30/19 01:11: Bedside Glucose (Misc Panel) 144H 03/30/19 01:33: Bedside Glucose (Misc Panel) 62L 03/30/19 01:50: Bedside Glucose (Misc Panel) 42L 03/30/19 02:21: Bedside Glucose (Misc Panel) 136H 03/30/19 02:41: Bedside Glucose (Misc Panel) 118H 03/30/19 03:07: Bedside Glucose (Misc Panel) 121H 03/30/19 03:59: Bedside Glucose (Misc Panel) 144H 03/30/19 04:44: Nucleated Red Blood Cells % (auto) 0.0, Bedside Glucose (Misc Panel) 170H, Anion Gap 8, Glomerular Filtration Rate > 60.0, Blood Urea Nitrogen 15, Creatinine 0.92, Sodium Level 138, Potassium Level 4.8#, Chloride Level 104, Carbon Dioxide Level 26, Calcium Level 9.0, Magnesium Level 2.2 03/30/19 06:02: Bedside Glucose (Misc Panel) 243H 03/30/19 06:56: Bedside Glucose (Misc Panel) 262H 03/30/19 07:50: Bedside Glucose (Misc Panel) 297H Home Medications Current Medications Current Medications Medications (Trade) Dose Ordered Sig/Vera Route PRN Reason Start Time Stop Time Status Last Admin Dose Admin Aripiprazole (AbiLIFY) 15 mg BID PO 03/30/19 09:00 03/30/19 09:59 Aspirin (Aspirin) 325 mg DAILY PO 03/30/19 09:00 03/30/19 08:16 Atorvastatin Calcium (Lipitor) 40 mg DAILY PO 03/30/19 09:00 03/30/19 08:16 Citalopram Hydrobromide (CeleXA) 10 mg QHS PO 03/30/19 21:00 Cyanocobalamin (Vitamin B12) 1,000 mcg DAILY PO 03/30/19 09:00 03/30/19 08:16 Dextrose 1,000 ml @ 100 mls/hr Q10H IV 03/30/19 02:15 03/30/19 06:14 DC 03/30/19 03:51 Dextrose (Dextrose 50%) 25 ml ASDIRECTED PRN IV SEE LABEL COMMENTS 03/29/19 23:15 Dextrose (Dextrose 50%) 50 ml STAT STAT IV 03/30/19 00:50 03/30/19 00:52 DC 03/30/19 00:58 Dextrose (Dextrose 50%) 50 ml STAT STAT IV 03/30/19 01:53 03/30/19 01:55 DC 03/30/19 02:01 Dextrose (Dextrose 50%) 50 ml STAT STAT IV 03/29/19 22:06 03/29/19 22:09 DC 03/29/19 22:34 Dextrose (Dextrose 50%) 50 ml STAT STAT IV 03/29/19 23:44 03/29/19 23:45 DC 03/29/19 23:47 Dextrose 325 ml/ Dextrose 1,300 ml @ 250 mls/hr Q5H12M IV 03/30/19 01:00 03/30/19 02:49 DC Dextrose/Sodium Chloride 1,000 ml @ 40 mls/hr Q24H IV 03/29/19 23:15 03/30/19 02:49 DC 03/29/19 00:20 Dextrose/Sodium Chloride 1,000 ml @ 125 mls/hr Q8H IV 03/29/19 22:15 03/30/19 00:41 DC 03/29/19 22:34 Dextrose/Sodium Chloride 1,000 ml @ 150 mls/hr Q6H40M IV 03/29/19 22:15 03/29/19 23:18 DC 03/29/19 22:33 Enoxaparin Sodium (Lovenox) 40 mg DAILY SC 03/30/19 09:00 03/30/19 08:17 Folic Acid 1 mg/ Sodium Chloride 50.2 ml @ 100.4 mls/ hr Q24H IV 03/30/19 02:00 03/30/19 01:59 Gabapentin (Neurontin) 300 mg BID PO 03/30/19 09:00 03/30/19 08:16 Glucagon (Glucagon) 1 mg ASDIRECTED PRN SC SEE LABEL COMMENTS 03/29/19 23:15 Glucose (Glucose) 16 GM ASDIRECTED PRN PO SEE LABEL COMMENTS 03/29/19 23:15 Home Med (Med Rec Complete!) ASDIRECTED XX 03/29/19 22:45 03/29/19 22:45 DC Hydroxyzine HCl (Atarax) 50 mg Q6HP PRN PO anxiety/agitation 03/30/19 08:00 Insulin Detemir (Levemir Insulin) 16 units DAILY SC 03/30/19 09:00 03/30/19 08:16 Insulin Human Lispro (HumaLOG INSULIN) SEE PROTOCOL TABLE AC SC 03/30/19 12:00 Insulin Human Lispro (HumaLOG INSULIN) SEE PROTOCOL TABLE QHS SC 03/30/19 21:00 Irbesartan (Avapro) 75 mg QHS PO 03/30/19 21:00 Lorazepam (Ativan) 2 mg ASDIRECTED PRN PO SEE PROTOCOL 03/30/19 00:30 Mirtazapine (Remeron) 15 mg QHS PRN PO SLEEP 03/30/19 21:00 Naloxone HCl (Narcan) 2 mg STAT STAT IV 03/29/19 23:40 03/29/19 23:41 DC 03/29/19 23:44 Ondansetron HCl (ZOFRAN INJection) 4 mg Q6HP PRN IV NAUSEA OR VOMITING 03/30/19 00:30 Pantoprazole Sodium (Protonix) 40 mg DAILY IV 03/30/19 02:30 03/30/19 08:16 Pantoprazole Sodium (Protonix) 40 mg DAILY IV 03/30/19 09:00 03/30/19 09:00 DC Ropinirole HCl (Requip) 0.75 mg QHS PO 03/30/19 21:00 Thiamine HCl (VITAMIN B1 INJection) 100 mg DAILY@2100 IM 03/29/19 21:00 03/30/19 02:00 Vitamin D (Vitamin D) 2,000 units DAILY PO 03/30/19 09:00 03/30/19 08:16 Scheduled Aripiprazole (Abilify) 15 Mg Tablet, 15 MG PO BID, (Reported) Aspirin (Aspirin) 325 Mg Tab, 325 MG PO DAILY, (Reported) Atorvastatin Calcium (Atorvastatin Calcium) 40 Mg Tab, 40 MG PO DAILY, (Reported) Cholecalciferol (Vitamin D3) (Vitamin D3) 2,000 Unit Tablet, 2,000 UNIT PO DAILY, (Reported) Citalopram Hydrobromide (Citalopram HBr) 10 Mg Tablet, 10 MG PO QHS, (Reported) Cyanocobalamin (Vitamin B-12) (Vitamin B-12) 1,000 Mcg Tab, 1,000 MCG PO DAILY, (Reported) Ergocalciferol (Vitamin D2) (Vitamin D2) 50,000 Unit Cap, 50,000 UNIT PO 1XWK, (Reported) TAKES ON FRIDAY Gabapentin (Gabapentin) 300 Mg Capsule, 300 MG PO BID, (Reported) Insulin Glargine (Lantus) 1 Units/0.01 Ml Susp, 35 UNITS SC DAILY, (Reported) Insulin Lispro (Humalog Kwikpen U-100) 100 Unit/1 Ml Insuln.pen, 1 DOSE SC AC, (Reported) PER SLIDING SCALE Irbesartan (Irbesartan) 150 Mg Tablet, 75 MG PO QHS, (Reported) Ropinirole HCl (Ropinirole HCl) 0.25 Mg Tablet, 0.75 MG PO QHS, (Reported) Scheduled PRN Hydroxyzine HCl (Hydroxyzine HCl) 50 Mg Tablet, 50 MG PO Q6H PRN for ANXIETY/AGITATION, (Reported) Mirtazapine (Remeron) 15 Mg Tablet, 15 MG PO QHS PRN for SLEEP, (Reported) Allergies Coded Allergies: quetiapine (Verified Adverse Reaction, Intermediate, Leg Cramps, 03/15/19) trazodone (Verified Adverse Reaction, Intermediate, leg cramps, 03/15/19) varenicline (Verified Adverse Reaction, Intermediate, Nightmares, 10/14/18) morphine (Verified Adverse Reaction, Mild, Nausea, Stomach Ache, 10/14/18) LUCRECIA RUIZ DO Mar 30, 2019 10:57 am
[2019-03-30] MEDS ORDERED: HumaLOG INSULIN (NovoLOG) PER UNIT SC SCH ×2 (12:00→21:00)
[2019-03-30 15:21] LABS: BLOOD UREA NITROGEN 21 MG/DL (7-18); CALCIUM LEVEL 8.9 MG/DL (8.5-10.1); CARBON DIOXIDE LEVEL 26 MEQ/L (21-32); CHLORIDE LEVEL 105 MEQ/L (98-107); CREATININE FOR GFR 1.21 MG/DL (0.70-1.30); GLOMERULAR FILTRATION RATE > 60.0 (>60); GLUCOSE, FASTING 360 MG/DL (70-100); POTASSIUM SERUM 5.1 MEQ/L (3.5-5.1); SODIUM LEVEL 138 MEQ/L (136-145)
[2019-03-30] MEDS ORDERED: CitaloPRAM (CeleXA) 10 MG TABLET PO SCH (21:00)
[2019-03-30] MEDS ORDERED: IRBESARTAN 150 MG TAB PO SCH (21:00)
[2019-03-30] MEDS ORDERED: MIRTAZAPINE 15 MG TAB PO PRN (21:00)
[2019-03-30] MEDS ORDERED: rOPINIRole 0.25 MG TAB(REQUIP) PO SCH (21:00)
== END 2019-03-30 16:23 | DRG 918 ==
LOC: M ED 21:06 → M ED INP 23:05 → M ICU 03-30 00:20 → M PSY 03-30 13:27 → M ICU 03-30 13:32
PROVIDERS: ADMIT Internal Medicine; ATTEND Internal Medicine
DX: T38.3X2A Poisoning by insulin and oral hypoglycemic [antidiabetic] drugs, intentional self-harm, initial encounter (principal); G93.40 Encephalopathy, unspecified; R45.851 Suicidal ideations; T40.602A Poisoning by unspecified narcotics, intentional self-harm, initial encounter; E11.649 Type 2 diabetes mellitus with hypoglycemia without coma; E87.6 Hypokalemia; K21.9 Gastro-esophageal reflux disease without esophagitis; I10 Essential (primary) hypertension; I25.10 Atherosclerotic heart disease of native coronary artery without angina pectoris; G25.81 Restless legs syndrome; F41.1 Generalized anxiety disorder; Z79.899 Other long term (current) drug therapy; Z79.82 Long term (current) use of aspirin; Z88.5 Allergy status to narcotic agent; Z88.8 Allergy status to other drugs, medicaments and biological substances; F31.9 Bipolar disorder, unspecified

== ENCOUNTER 2019-03-30 13:38 | Inpatient (IN) | payer OTHER, MEDICAID ==
[~2019-03-30] VITALS: Ht 177.8 cm; Wt 84.4 kg
[~2019-03-30 13:38] MED LIST changes: +CITA10TA5 PO; +ROPI0.253 PO; -THIAMINE HCL 200 MG/2 ML VIAL (J3411) IM SCH
[2019-03-30] MEDS ORDERED: MAALOX 30 ML SUSP *UDC PO PRN (15:30)
[2019-03-30] MEDS ORDERED: ACETAMINOPHEN TAB 650MG DOSE (2X325MG) PO PRN (15:30)
[2019-03-30] MEDS ORDERED: MOM 30ML SUSPENSION UDC PO PRN (15:30)
[2019-03-30] MEDS ORDERED: GLUCOSE 4 GM CHEW TABLET PO PRN (16:15)
[2019-03-30] MEDS ORDERED: GLUCAGON FOR INJ 1 MG VIAL (J1610) SC PRN (16:15)
[2019-03-30] MEDS ORDERED: DEXTROSE 50% 50 ML SYRINGE IV PRN (16:15)
[2019-03-30] MEDS ORDERED: hydrOXYzine 50 MG TAB PO PRN (16:15)
[2019-03-30 16:40] VITALS: BP 149/71
[2019-03-30] MEDS ORDERED: HumaLOG INSULIN (NovoLOG) PER UNIT SC SCH ×2 (17:30→21:00)
[2019-03-30] MEDS ORDERED: HumaLOG INSULIN (NovoLOG) PER UNIT SC ONE (17:30)
[2019-03-30] MEDS ORDERED: HumuLIN R (REGULAR) INSULIN (NovoLIN R) **100U/ML** PER UNIT SC STA (19:56)
[2019-03-30] MEDS ORDERED: NS 1,000 ML IV SCH (20:45)
[2019-03-30] MEDS ORDERED: ARIPiprazole 10 MG TAB PO SCH (21:00)
[2019-03-30] MEDS ORDERED: MIRTAZAPINE 15 MG TAB PO SCH (21:00)
[2019-03-30] MEDS ORDERED: rOPINIRole 0.25 MG TAB(REQUIP) PO SCH (21:00)
[2019-03-30] MEDS ORDERED: LEVEMIR (INSULIN DETEMIR) 1 UNITS/0.01ML SC SCH (21:00)
[2019-03-30] MEDS ORDERED: HEPARIN SOD (PORCINE) 5000 UNITS/ML VIAL SC SCH (21:00)
[2019-03-30] MEDS ORDERED: GABAPENTIN 300 MG CAP PO SCH (21:00)
[2019-03-30] MEDS ORDERED: IRBESARTAN 150 MG TAB PO SCH (21:00)
[2019-03-30] MEDS ORDERED: CitaloPRAM (CeleXA) 10 MG TABLET PO SCH (21:00)
[2019-03-30 21:04] LABS: CALCIUM LEVEL 8.8 MG/DL (8.5-10.1); CREATININE FOR GFR 1.46 MG/DL (0.70-1.30); GLOMERULAR FILTRATION RATE 54.6 (>60); POTASSIUM SERUM 4.5 MEQ/L (3.5-5.1)
[2019-03-30] MEDS ORDERED: MIRTAZAPINE 15 MG TAB PO PRN (21:30)
[2019-03-30 22:21] VITALS: BP 132/70
[2019-03-31] MEDS ORDERED: VITAMIN D 1,000 INTERNATIONAL UNITS TABLET PO SCH ×2 (09:00)
[2019-03-31] MEDS ORDERED: ASPIRIN 325 MG TAB PO SCH ×2 (09:00)
[2019-03-31] MEDS ORDERED: GABAPENTIN 300 MG CAP PO SCH (09:00)
[2019-03-31] MEDS ORDERED: ARIPiprazole 15 MG TAB (AbiLIFY) PO SCH (09:00)
[2019-03-31] MEDS ORDERED: LEVEMIR (INSULIN DETEMIR) 1 UNITS/0.01ML SC SCH ×2 (09:00)
[2019-03-31] MEDS ORDERED: ATORVASTATIN 20 MG TAB PO SCH ×2 (09:00)
[2019-03-31] MEDS ORDERED: CYANOCOBALAMIN 500 MCG TAB PO SCH ×2 (09:00)
[2019-03-31] MEDS ORDERED: IRBESARTAN 150 MG TAB PO SCH (21:00)
[2019-03-31] MEDS ORDERED: CitaloPRAM (CeleXA) 10 MG TABLET PO SCH (21:00)
[2019-03-31] MEDS ORDERED: rOPINIRole 0.25 MG TAB(REQUIP) PO SCH (21:00)
--- NOTE | 2019-04-20 09:14 | MHHPEPDOC ---
General Date Of Admission: Mar 30, 2019 Legal Status: 9.37 Chief Complaint ". History of Present Illness Pt refer to Psychiatric Consult note during medical admission dated 03/30/19 as pt admitted, not seen, and d/c immediately d/c by medical team to medical floor for treatment of hyperglycemia and need of rapid medical treatment. Past Psychiatric History Previous Psychiatric Diagnosis: . Previous Psychiatric Admissions: . Suicide Attempts: . Psychiatric Follow-up: . Psychiatric medications: . Social History Childhood: . Abuse/Trauma:. Current Living Situation: . Education: . Employment: . Social Support: . Legal: . Marital: . A-FIB/CHADSVASC A-FIB History Current/History of A-Fib/PAF?: No Initial Treatment Plan 1. Patient was admitted on a [9.39] status. 2. Complete history was obtained. 3. With patients permission, family will be contacted and database will be expanded. 4. Patients medication regimen will be reviewed and changed accordingly. 5. Patient will be provided with protected environment. 6. Patient will be treated with individual, group, and milieu therapies. 7. Patient will receive supportive psych-education. 8. Discharge planning will commence immediately. 9. Outpatient follow-up treatment will be strongly recommended. 10. The initial treatment plan will focus initially on: * Depression. * Risk for suicide. ESTIMATED LENGTH OF STAY: - DAYS. TIME SPENT COUNSELING AND COORDINATING INITIAL CARE: minutes. Medications Scheduled Aripiprazole (Abilify) 30 Mg Tablet, 15 MG PO DAILY for bipolar depression Aspirin (Aspirin) 325 Mg Tab, 325 MG PO DAILY for ., (Reported) Atorvastatin Calcium (Atorvastatin Calcium) 40 Mg Tab, 40 MG PO DAILY for ., (Reported) Cholecalciferol (Vitamin D3) (Vitamin D3) 2,000 Unit Tablet, 2,000 UNIT PO DAILY for ., (Reported) Citalopram Hydrobromide (Celexa) 10 Mg Tablet, 30 MG PO QAM for mood Cyanocobalamin (Vitamin B-12) (Vitamin B-12) 1,000 Mcg Tab, 1,000 MCG PO DAILY for ., (Reported) Ergocalciferol (Vitamin D2) (Vitamin D2) 50,000 Unit Cap, 50,000 UNIT PO 1XWK for ., (Reported) TAKES ON FRIDAY Gabapentin (Gabapentin) 300 Mg Capsule, 300 MG PO BID for ., (Reported) Insulin Detemir (Levemir) 100 Unit/1 Ml Vial, 20 UNITS SC BID Please take 20 units of levemir subcutaneously in the morning and 20 units in the evening daily. Insulin Lispro (Humalog Kwikpen U-100) 100 Unit/1 Ml Insuln.pen, 1 DOSE SC AC for ., (Reported) PER SLIDING SCALE Irbesartan (Irbesartan) 150 Mg Tablet, 75 MG PO QHS for ., (Reported) Ropinirole HCl (Ropinirole HCl) 0.25 Mg Tablet, 0.75 MG PO QHS for ., (Reported) Scheduled PRN Hydroxyzine HCl (Hydroxyzine HCl) 50 Mg Tablet, 50 MG PO Q6HP PRN for ANXIETY/AGITATION Mirtazapine (Remeron) 15 Mg Tablet, 15 MG PO QHSP PRN for INSOMNIA Allergies Coded Allergies: quetiapine (Verified Adverse Reaction, Intermediate, Leg Cramps, 03/15/19) trazodone (Verified Adverse Reaction, Intermediate, leg cramps, 03/15/19) varenicline (Verified Adverse Reaction, Intermediate, Nightmares, 10/14/18) morphine (Verified Adverse Reaction, Mild, Nausea, Stomach Ache, 10/14/18) ULCRECIA RUIZ DO Apr 20, 2019 09:14
--- NOTE | 2019-04-20 09:14 | MHDSPDOC ---
[facility] Discharge Summary Discharge Summary DATE OF ADMISSION: Mar 30, 2019 at 16:30 DATE OF DISCHARGE: Mar 30, 2019 at 23:37 Pt refer to Psychiatric Consult note during medical admission dated 03/30/19 as pt admitted, not seen, and d/c immediately d/c by medical team to medical floor for treatment of hyperglycemia and need of rapid medical treatment. Medications Scheduled Aripiprazole (Abilify) 30 Mg Tablet, 15 MG PO DAILY for bipolar depression, #5 Aspirin (Aspirin) 325 Mg Tab, 325 MG PO DAILY for ., (Reported) Atorvastatin Calcium (Atorvastatin Calcium) 40 Mg Tab, 40 MG PO DAILY for ., (Reported) Cholecalciferol (Vitamin D3) (Vitamin D3) 2,000 Unit Tablet, 2,000 UNIT PO DAILY for ., (Reported) Citalopram Hydrobromide (Celexa) 10 Mg Tablet, 30 MG PO QAM for mood, #10 Cyanocobalamin (Vitamin B-12) (Vitamin B-12) 1,000 Mcg Tab, 1,000 MCG PO DAILY for ., (Reported) Ergocalciferol (Vitamin D2) (Vitamin D2) 50,000 Unit Cap, 50,000 UNIT PO 1XWK for ., (Reported) TAKES ON FRIDAY Gabapentin (Gabapentin) 300 Mg Capsule, 300 MG PO BID for ., (Reported) Insulin Detemir (Levemir) 100 Unit/1 Ml Vial, 20 UNITS SC BID for 20 Days, #8 Please take 20 units of levemir subcutaneously in the morning and 20 units in the evening daily. Insulin Lispro (Humalog Kwikpen U-100) 100 Unit/1 Ml Insuln.pen, 1 DOSE SC AC for ., (Reported) PER SLIDING SCALE Irbesartan (Irbesartan) 150 Mg Tablet, 75 MG PO QHS for ., (Reported) Ropinirole HCl (Ropinirole HCl) 0.25 Mg Tablet, 0.75 MG PO QHS for ., (Reported) Scheduled PRN Hydroxyzine HCl (Hydroxyzine HCl) 50 Mg Tablet, 50 MG PO Q6HP PRN for ANXIETY/AGITATION, #30 Mirtazapine (Remeron) 15 Mg Tablet, 15 MG PO QHSP PRN for INSOMNIA, #10 Allergies Coded Allergies: quetiapine (Verified Adverse Reaction, Intermediate, Leg Cramps, 03/15/19) trazodone (Verified Adverse Reaction, Intermediate, leg cramps, 03/15/19) varenicline (Verified Adverse Reaction, Intermediate, Nightmares, 10/14/18) morphine (Verified Adverse Reaction, Mild, Nausea, Stomach Ache, 10/14/18) LUCRECIA RUIZ DO Apr 20, 2019 09:14
== END 2019-03-30 23:37 | disposition home or self-care (01) | DRG 420 ==
LOC: M PSY 16:30
PROVIDERS: ADMIT Psychiatry & Neurology Psychiatry; ATTEND Psychiatry & Neurology Psychiatry
DX: E11.65 Type 2 diabetes mellitus with hyperglycemia (principal); Z88.5 Allergy status to narcotic agent; Z79.82 Long term (current) use of aspirin; Z79.4 Long term (current) use of insulin; Z79.899 Other long term (current) drug therapy; Z88.8 Allergy status to other drugs, medicaments and biological substances

== ENCOUNTER 2019-03-30 21:14 | Inpatient (IN) | payer MEDICARE, MEDICAID ==
[~2019-03-30] VITALS: Ht 177.8 cm; Wt 85.7 kg
[~2019-03-30 21:14] MED LIST changes: -LORA1TAB12 PO; +LORA1TAB4 PO; -MECL-68 PO; +MECL1TAB31 PO
--- NOTE | 2019-03-30 22:02 | HPEPDOC ---
General Date of Admission 03/30/19 Date of Service: Mar 30, 2019 Chief Complaint The patient is a 48-year-old male admitted with a reason for visit of Hyperglycemia. History of Present Illness Pt is a 48 yo male who was just discharged to [facility] this morning after resolving hypoglycemia event after attempting suicide by overdosing on insulin (novolog). It was also noted that pt's urine was pos for opiate in utox. Pt was initially altered with hypoglycemia He continued to have suicidal ideations but denies homicidal ideation. When he arrived to the unit, he was initially completely altered and his glucose was 37, with positive serum opiates and ethanol. He received several amps of D50 and was started on D10 half-normal saline at 250ml per hour was 220. His mental status improved transiently, but he became hypoglycemic again. He also received 2 doses of Narcan with minimal improvement in his mental status. He was continued on D10 half normal saline overnight. HOSPITAL COURSE: Patient was monitored overnight and continued to receive D10. This was stopped at approximately 0600. After seeing the patient and speaking with ICU staff, the patients every hour fingersticks, neuro checks etc were discontinued as patient appeared to be back to baseline. He confirmed he attempted suicide with novolog so it should be out of his system by now. We restarted him on sliding scale coverage as well as long acting insulin at half his usual dosage and consulted Dr. East for admission to the inpatient mental health unit. Home Medications Scheduled Aripiprazole (Abilify) 15 Mg Tablet, 15 MG PO BID for ., (Reported) Aspirin (Aspirin) 325 Mg Tab, 325 MG PO DAILY for ., (Reported) Atorvastatin Calcium (Atorvastatin Calcium) 40 Mg Tab, 40 MG PO DAILY for ., (Reported) Cholecalciferol (Vitamin D3) (Vitamin D3) 2,000 Unit Tablet, 2,000 UNIT PO DAILY for ., (Reported) Citalopram Hydrobromide (Citalopram HBr) 10 Mg Tablet, 10 MG PO QHS for ., (Reported) Cyanocobalamin (Vitamin B-12) (Vitamin B-12) 1,000 Mcg Tab, 1,000 MCG PO DAILY for ., (Reported) Ergocalciferol (Vitamin D2) (Vitamin D2) 50,000 Unit Cap, 50,000 UNIT PO 1XWK for ., (Reported) TAKES ON FRIDAY Gabapentin (Gabapentin) 300 Mg Capsule, 300 MG PO BID for ., (Reported) Insulin Glargine (Lantus) 1 Units/0.01 Ml Susp, 35 UNITS SC DAILY for ., (Reported) Insulin Lispro (Humalog Kwikpen U-100) 100 Unit/1 Ml Insuln.pen, 1 DOSE SC AC for ., (Reported) PER SLIDING SCALE Irbesartan (Irbesartan) 150 Mg Tablet, 75 MG PO QHS for ., (Reported) Ropinirole HCl (Ropinirole HCl) 0.25 Mg Tablet, 0.75 MG PO QHS for ., (Reported) Scheduled PRN Hydroxyzine HCl (Hydroxyzine HCl) 50 Mg Tablet, 50 MG PO Q6H PRN for ANXIETY/AGITATION, (Reported) Mirtazapine (Remeron) 15 Mg Tablet, 15 MG PO QHS PRN for SLEEP, (Reported) Allergies Coded Allergies: quetiapine (Verified Adverse Reaction, Intermediate, Leg Cramps, 03/15/19) trazodone (Verified Adverse Reaction, Intermediate, leg cramps, 03/15/19) varenicline (Verified Adverse Reaction, Intermediate, Nightmares, 10/14/18) morphine (Verified Adverse Reaction, Mild, Nausea, Stomach Ache, 10/14/18) SCAR JOHNSON DO Mar 30, 2019 22:02
[2019-03-30] MEDS ORDERED: MIRTAZAPINE 15 MG TAB PO PRN (23:15)
[2019-03-30] MEDS ORDERED: LEVEMIR (INSULIN DETEMIR) 1 UNITS/0.01ML SC ONE (23:15)
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
[2019-03-30] MEDS ORDERED: GLUCOSE 4 GM CHEW TABLET PO PRN (23:30)
[2019-03-30] MEDS ORDERED: LORazepam 2 MG TAB PO PRN (23:30)
[2019-03-30] MEDS ORDERED: DEXTROSE 50% 50 ML SYRINGE IV PRN (23:30)
[2019-03-30] MEDS ORDERED: GLUCAGON FOR INJ 1 MG VIAL (J1610) SC PRN (23:30)
[2019-03-31] VITALS (8 sets, daily range): BP systolic 109–135; BP diastolic 63–75
[2019-03-31] MEDS: IRBESARTAN 150 MG TAB PO SCH ×2 (00:10→21:31)
[2019-03-31] MEDS: ARIPiprazole 15 MG TAB (AbiLIFY) PO SCH ×3 (00:10→21:31)
[2019-03-31] MEDS: GABAPENTIN 300 MG CAP PO SCH ×3 (00:11→21:31)
[2019-03-31] MEDS: CitaloPRAM (CeleXA) 10 MG TABLET PO SCH ×2 (00:12→21:31)
[2019-03-31] MEDS: rOPINIRole 0.25 MG TAB(REQUIP) PO SCH ×2 (00:12→21:30)
[2019-03-31] MEDS ORDERED: PILL CUTTER 1 EACH XX PRN (00:15)
[2019-03-31] MEDS ORDERED: LEVEMIR (INSULIN DETEMIR) 1 UNITS/0.01ML SC ONE (00:15)
[2019-03-31 00:22] LABS: VENOUS BASE EXCESS 0.7 (-2.0-2.0); VENOUS HCO3 25.3 MEQ/L (23.0-27.0); VENOUS O2 SATURATION 98.1 % (60.0-80.0); VENOUS PARTIAL PRESSURE CO2 40.7 mmHg (38.0-50.0); VENOUS PARTIAL PRESSURE O2 117.7 mmHg (30.0-50.0); VENOUS PH 7.412 UNITS (7.330-7.430); VENOUS STANDARD HCO3 25.1 MEQ/L; VENOUS TOTAL CO2 26.6 MEQ/L (24.0-28.0)
[2019-03-31] MEDS: NS 1,000 ML IV SCH ×4 (00:38→21:29)
[2019-03-31] MEDS: THIAMINE 100 MG TAB PO SCH ×3 (00:38→21:31)
[2019-03-31 00:45] LABS: BLOOD UREA NITROGEN 25 MG/DL (7-18); CALCIUM LEVEL 8.7 MG/DL (8.5-10.1); CARBON DIOXIDE LEVEL 29 MEQ/L (21-32); CHLORIDE LEVEL 104 MEQ/L (98-107); GLOMERULAR FILTRATION RATE > 60.0 (>60); GLUCOSE, FASTING 208 MG/DL (70-100); SODIUM LEVEL 139 MEQ/L (136-145)
[2019-03-31 01:07] LABS: OSMOLALITY SERUM 294 MOSM/KG (275-295)
[2019-03-31] MEDS ORDERED: ACETAMINOPHEN 500 MG TAB PO PRN (01:30)
[2019-03-31 05:06] LABS: BLOOD UREA NITROGEN 21 MG/DL (7-18); CALCIUM LEVEL 7.9 MG/DL (8.5-10.1); CARBON DIOXIDE LEVEL 25 MEQ/L (21-32); CHLORIDE LEVEL 108 MEQ/L (98-107); CREATININE FOR GFR 0.85 MG/DL (0.70-1.30); GLOMERULAR FILTRATION RATE > 60.0 (>60); GLUCOSE, FASTING 149 MG/DL (70-100); POTASSIUM SERUM 3.9 MEQ/L (3.5-5.1); SODIUM LEVEL 141 MEQ/L (136-145)
[2019-03-31] MEDS: HumaLOG INSULIN (NovoLOG) PER UNIT SC SCH ×3 (08:06→17:40)
[2019-03-31] MEDS: MULTIVITAMINS/MINERALS THERAP 1 TAB PO SCH (08:06)
[2019-03-31] MEDS: VITAMIN D 1,000 INTERNATIONAL UNITS TABLET PO SCH (08:07)
[2019-03-31] MEDS: ASPIRIN 325 MG TAB PO SCH (08:07)
[2019-03-31] MEDS: ATORVASTATIN 20 MG TAB PO SCH (08:07)
[2019-03-31] MEDS: FOLIC ACID 1 MG TAB PO SCH (08:08)
[2019-03-31] MEDS: HEPARIN SOD (PORCINE) 5000 UNITS/ML VIAL SC SCH ×3 (08:08→21:30)
[2019-03-31] MEDS: CYANOCOBALAMIN 500 MCG TAB PO SCH (08:12)
[2019-03-31 09:09] LABS: BLOOD UREA NITROGEN 17 MG/DL (7-18); CALCIUM LEVEL 8.3 MG/DL (8.5-10.1); CARBON DIOXIDE LEVEL 28 MEQ/L (21-32); CHLORIDE LEVEL 107 MEQ/L (98-107); CREATININE FOR GFR 0.84 MG/DL (0.70-1.30); GLOMERULAR FILTRATION RATE > 60.0 (>60); GLUCOSE, FASTING 119 MG/DL (70-100); POTASSIUM SERUM 4.1 MEQ/L (3.5-5.1); SODIUM LEVEL 143 MEQ/L (136-145)
[2019-03-31 13:44] LABS: BLOOD UREA NITROGEN 17 MG/DL (7-18); CALCIUM LEVEL 8.1 MG/DL (8.5-10.1); CARBON DIOXIDE LEVEL 26 MEQ/L (21-32); CHLORIDE LEVEL 107 MEQ/L (98-107); CREATININE FOR GFR 0.93 MG/DL (0.70-1.30); GLOMERULAR FILTRATION RATE > 60.0 (>60); GLUCOSE, FASTING 192 MG/DL (70-100); POTASSIUM SERUM 4.1 MEQ/L (3.5-5.1); SODIUM LEVEL 141 MEQ/L (136-145)
--- NOTE | 2019-03-31 16:15 | IPNPDOC ---
Text Note Date of Service The patient was seen on 03/31/19. NOTE SUBJECTIVE: Patient seen at bedside this morning. Patient states he felt they may be giving him too much of the short acting insulin which is why he declined taking it. He states he would be willing to resume his home regimen and that he presently is feeling fine. Denies chest pain, dyspnea, nausea, vomiting. OBJECTIVE: PHYSICAL EXAM: Vitals: (see below) General: No acute distress, laying comfortably in bed. HEENT: Normocephalic, atraumatic. EOMI. No scleral icterus. Moist mucous membranes. No pharyngeal erythema or uvular deviation. Neck: No JVD, lymphadenopathy, or thyromegaly. Cardiac: RRR, Normal S1 and S2, No murmurs, gallops, rubs. Pulm: Clear to auscultation b/l. Symmetric thorax. No wheezing, crackles, rhonchi Abd: Bowel Sounds present. Abdomen is soft, non-tender, non-distended. Ext: LLE foot wound on plantar surface of the foot. Neuro: No focal neuro deficits Psych: Appropriate affect, speaking much more to provider than day prior. LABORATORY DATA, MICROBIOLOGY: Please see below. IMAGING STUDIES: ASSESSMENT AND PLAN: #. Hyperglycemia, type 2 DM insulin dependent -Resolved, no DKA. resume sliding scale and home dose of insulin #. Suicide Attempt -Psych consult placed for readmission to [facility], they will see patient this afternoon to determine whether patient requires admission. #. Foot wound -Consulting wound care for evaluation of foot wound of unknown origin on plantar surface of L-foot. Given patient's diabetic history and history of partial toe amputation, this needs to be evaluated. #. Opiate use disorder -No symptoms of withdrawal on exam, continue to monitor. #. Alcohol use disorder -No signs or sympoms of withdrawal on exam. Continue folate, thiamine, multivitamin #. Coronary artery disease -Cont home med statin and aspirin #. Dyslipidemia -Cont home med statin #. Chronic hypertension. -Cont home med #. GERD -Cont home med #. Restless leg syndrome -Cont home med DVT prophylaxis with Lovenox, SCD, and TEDS DISPOSITION: pending psych evaluation for readmission VS,Fishbone, I+O VS, Fishbone, I+O Laboratory Tests 03/31/19 00:15 Calcium Level 8.7 03/31/19 04:41 Calcium Level 7.9 L 03/31/19 08:22 Calcium Level 8.3 L 03/31/19 13:04 Calcium Level 8.1 L Vital Signs Date Time Temp Pulse Resp B/P (MAP) Pulse Ox O2 Delivery O2 Flow Rate FiO2 03/31/19 12:00 82 124/68 03/31/19 12:00 98.0 20 97 I&O- Last 24 Hours up to 6 AM 03/31/19 06:00 Intake Total 0 ml Output Total 0 ml Balance 0 ml GME ATTESTATION GME ATTESTATION My faculty preceptor for this patient encounter was physically present during the encounter and was fully available. All aspects of the patient interview, examination, medical decision making process, and medical care plan development were reviewed and approved by the faculty preceptor. The faculty preceptor is aware and concurs with the plan as stated in the body of this note and will attest to such by his/her cosignature. ATTENDING NOTE I, Regina Mendoza, have independently examined this patient and performed my own physical exam, as well as reviewed the documentation and edited where necessary. I have discussed in detail with the resident / student the findings and plan of treatment as documented by the resident / student and edited their note. I agree with their findings and treatment plan and have edited their documentation. I will continue to follow the patient during this hospital stay. BOONE RODARTE DO Mar 31, 2019 16:15 REGINA MENDOZA MD Mar 31, 2019 16:29
[2019-03-31] MEDS ORDERED: HumaLOG INSULIN (NovoLOG) PER UNIT SC SCH (17:30)
[2019-03-31] MEDS ORDERED: LEVEMIR (INSULIN DETEMIR) 1 UNITS/0.01ML SC SCH (21:00)
[2019-04-01] VITALS: BP 140/79
[2019-04-01 04:00] VITALS: BP_SYST 127; BP_DIAS 73; BP_DIAS 76
[2019-04-01] MEDS: NS 1,000 ML IV SCH (04:06)
[2019-04-01] MEDS: HumaLOG INSULIN (NovoLOG) PER UNIT SC SCH ×3 (07:30→17:45)
[2019-04-01 08:00] VITALS: BP 127/60
[2019-04-01 08:42] LABS: HEMATOCRIT 33.4 % (42.0-52.0); HEMOGLOBIN 10.7 g/dl (13.5-17.5); MEAN CORPUSCULAR HEMOGLOBIN 26.2 pg (27.0-33.0); MEAN CORPUSCULAR VOLUME 81.7 fl (80.0-96.0); PLATELET COUNT, AUTOMATED 262 10^3/uL (150-450); RED BLOOD COUNT 4.09 10^6/uL (4.30-6.10); WHITE BLOOD COUNT 4.1 10^3/uL (4.0-10.0)
[2019-04-01] MEDS: FOLIC ACID 1 MG TAB PO SCH (09:03)
[2019-04-01] MEDS: CYANOCOBALAMIN 500 MCG TAB PO SCH (09:03)
[2019-04-01] MEDS: ASPIRIN 325 MG TAB PO SCH (09:03)
[2019-04-01] MEDS: MULTIVITAMINS/MINERALS THERAP 1 TAB PO SCH (09:03)
[2019-04-01] MEDS: VITAMIN D 1,000 INTERNATIONAL UNITS TABLET PO SCH (09:03)
[2019-04-01] MEDS: GABAPENTIN 300 MG CAP PO SCH (09:03)
[2019-04-01] MEDS: THIAMINE 100 MG TAB PO SCH (09:03)
[2019-04-01] MEDS: ATORVASTATIN 20 MG TAB PO SCH (09:03)
[2019-04-01] MEDS: ARIPiprazole 15 MG TAB (AbiLIFY) PO SCH (09:03)
[2019-04-01] MEDS: HEPARIN SOD (PORCINE) 5000 UNITS/ML VIAL SC SCH (09:04)
[2019-04-01 09:08] LABS: BLOOD UREA NITROGEN 14 MG/DL (7-18); CALCIUM LEVEL 8.2 MG/DL (8.5-10.1); CARBON DIOXIDE LEVEL 26 MEQ/L (21-32); CHLORIDE LEVEL 107 MEQ/L (98-107); GLOMERULAR FILTRATION RATE > 60.0 (>60); GLUCOSE, FASTING 177 MG/DL (70-100); POTASSIUM SERUM 4.3 MEQ/L (3.5-5.1); SODIUM LEVEL 141 MEQ/L (136-145)
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
[2019-04-01] MEDS ORDERED: SLF 3 ML SYR IV PRN (11:45)
[2019-04-01 12:00] VITALS: BP 156/72
[2019-04-01] MEDS ORDERED: SLF 3 ML SYR IV SCH (14:00)
[2019-04-01] MEDS ORDERED: LEVEMIR (INSULIN DETEMIR) 1 UNITS/0.01ML SC ONE (14:00)
[2019-04-01] MEDS ORDERED: INSUDET SC (15:33)
[2019-04-01 16:01] VITALS: BP 133/65
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
[2019-04-01] MEDS ORDERED: LEVEMIR (INSULIN DETEMIR) 1 UNITS/0.01ML SC SCH (21:00)
== END 2019-04-01 18:28 | DRG 638 ==
LOC: M PCU 23:42
PROVIDERS: ADMIT Internal Medicine; ATTEND Internal Medicine
DX: E11.65 Type 2 diabetes mellitus with hyperglycemia (principal); R45.851 Suicidal ideations; F11.10 Opioid abuse, uncomplicated; I10 Essential (primary) hypertension; Z91.19 Patient's noncompliance with other medical treatment and regimen; G25.81 Restless legs syndrome; E78.5 Hyperlipidemia, unspecified; F41.1 Generalized anxiety disorder; I25.10 Atherosclerotic heart disease of native coronary artery without angina pectoris; F31.9 Bipolar disorder, unspecified; Z79.82 Long term (current) use of aspirin; Z79.899 Other long term (current) drug therapy; Z88.8 Allergy status to other drugs, medicaments and biological substances; Z88.5 Allergy status to narcotic agent

== ENCOUNTER 2019-04-01 18:10 | Inpatient (IN) | payer MEDICARE, MEDICAID ==
[~2019-04-01] VITALS: Ht 177.8 cm; Wt 84.5 kg
[~2019-04-01 18:10] MED LIST changes: +INSUDET SC; +LORA1TAB12 PO; -LORA1TAB4 PO; +MECL-68 PO; -MECL1TAB31 PO
[2019-04-01 18:37] VITALS: BP 136/65
[2019-04-01] MEDS ORDERED: GLUCOSE 4 GM CHEW TABLET PO PRN (19:15)
[2019-04-01] MEDS ORDERED: GLUCAGON FOR INJ 1 MG VIAL (J1610) SC PRN (19:15)
[2019-04-01] MEDS ORDERED: DEXTROSE 50% 50 ML SYRINGE IV PRN (19:15)
[2019-04-01] MEDS: IRBESARTAN 150 MG TAB PO SCH (21:00)
[2019-04-01] MEDS ORDERED: CitaloPRAM (CeleXA) 10 MG TABLET PO SCH (21:00)
[2019-04-01] MEDS: ARIPiprazole 15 MG TAB (AbiLIFY) PO SCH (21:42)
[2019-04-01] MEDS: GABAPENTIN 300 MG CAP PO SCH (21:44)
[2019-04-01] MEDS: rOPINIRole 0.25 MG TAB(REQUIP) PO SCH (21:46)
[2019-04-01] MEDS: LEVEMIR (INSULIN DETEMIR) 1 UNITS/0.01ML SC SCH (21:48)
[2019-04-02 06:36] VITALS: BP 116/65
[2019-04-02] MEDS: HumaLOG INSULIN (NovoLOG) PER UNIT SC SCH ×3 (06:38→17:43)
[2019-04-02] MEDS ORDERED: HumaLOG INSULIN (NovoLOG) PER UNIT SC SCH (07:30)
[2019-04-02] MEDS ORDERED: LORazepam 2 MG TAB PO ONE (09:00)
--- NOTE | 2019-04-02 10:07 | MHHPEPDOC ---
General Date Of Admission: Apr 01, 2019 Legal Status: 9.37 Chief Complaint "I'm depressed" History of Present Illness HISTORY OF THE PRESENT ILLNESS: Patient is a 48 -year-old , male, has a history of depression, recently d/c IM 1 wk ago who was seen as a consult by myself s/p OD on insulin as SA and per my consult note "Per medical admission note "Mr. Rust is a 48-year-old male who was brought to the ED after attempting suicide by overdosing on insulin. He was discharged from the inpatient psych unit a few days ago. When asked what happened he didn't say much, but admitted that things were not going well after he was discharged from the hospital and this is why he overdosed on insulin. When asked what opiates he took he didn't know. Currently he continues to have suicidal ideation but denies homicidal ideation. He arrived, he was initially completely altered and , his glucose was 37 , serum ethanol and opiates are positive. He received several amps of D50 and was started on D10 half-normal saline at 250ml per hour was 220. His mental status improved transiently but he became hypoglycemic again. He also received 2 doses of Narcan with minimal improvement in his mental status. Pt seen today (03/30/19) and states he doesn't know what happened regarding his mood but started feeling depressed after he was discharged from [facility] Friday he believes b/c his medication wasn't working the same as it had been on the unit. Asked pt if he had been socializing since being discharged as he was social with his peers daily on the unit which seemed to help his mood and future outlook and states "no." States he's agreeable to being admitted again to [facility] for treatment of depression and incites that something be done with his medication so he feels well when d/c. Did speak with pt that will adjust his medications based on symptoms and tolerance when on the unit but that it appears his lack of socialization when at home most likely has a lot to do with his depressive and suicidal thoughts as that is the big difference between being on the unit at home which he agrees. States he feels "ok" today but fears going home and feeling depressed and suicidal if he doesn't get further psychiatric treatment on [facility]." Pt then when on unit 03/30/19 suffered hyperglycemia with blood sugar in the 500s and not coming down after receiving 15unit of insulin demanding to return to medical floor for treatment of hyperglycemia so discharged with only about 4hr stay on [facility] back to medical floor for treatment. Uncontrolled hyperglycemia treated on medical floor and pt readmitted to [facility] for treatment of depression and being s/p SA. Psychiatric Review of Systems Depression (2 or more weeks): depressed mood, feelings of worthlesness, decreased energy, difficulty concentrating, suicidal thoughts Roberta (4 or more days of): denies Psychosis: denies PTSD: denies Anxiety: situational anxiety, stressor related anxiety Anxiety/ 6 months or more of: easily fatigued, difficulty concentrating, irritability Past Psychiatric History Previous Psychiatric Diagnosis: depression, anxiety alcohol use d/o Previous Psychiatric Admissions: 6 admissions to [facility] for depression and SI, s/p SA. Discharged for [facility] rehab 07/2018. D/c from [facility] last Friday after pt for the past 2 days prior stating he was doing very well with greatly improved mood, tolerance and benefit of medications, denial of depression and SI, appearing completely euthymic and bright, actively involved with his treatment on the unit. Suicide Attempts: SA by [facility] 20 2009 and intentional insulin OD in 2010 Psychiatric Follow-up: [facility], attempted to see on Friday (03/12/19) as a walk-in but couldn't be seen Psychiatric Medications: abilify, vistaril, celxa Past Medical History Medical Problems hypertension, insulin-dependent diabetes mellitus, status post myocardial infarction (NM), and hypercholesterolemia. Head Injury: No Seizures: No Hospitalizations: Yes Surgeries: No Family Medical/Psychiatric HX Medical Problems noncontributory Psychiatric Disorders: Yes (sister has depression) Addiction: No Suicide Attemps/Completions: No Addiction History alcohol (heavy alcohol use d/o in past, bal 0.052 on 03/29/19), cocaine (as a luis antonio nager), opioids (utox positive opiates 03/29/19) Social History Childhood: Born in [place] and raised in [place]. Father in the . 2 parent home. 1 younger sister. Good childhood. Father 2yrs ago. 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 [employer] Social Support: family Legal: denies Marital: single, one daughter 21 that lives with her boyfriend Mental Status Examination General Appearance: unkempt, appears stated age, hospital scubs/clothing Build: average Demeanor: very figety (and tremulous) Eye Contact: fair Activity: anxious (very) Behavior: cooperative, restless Speech: reg/rate,rhythm,volume Mood: depressed, anxious Mood " I feel very anxious" Affect: constricted, congruent, anxious (very) Thought Process: logical/linear, depressed, slow Thought Content (Delusions): denies SI, HI, AVH Thought Content (Other): appropriate Thought Content (Aggressive): none reported Perception (Hallucinations): none reported Perception (Other): none reported Cognition (Impairment of): none reported Cognition(Intelligence Est.): average Oriented: Awake, Alert, Oriented times three Insight: poor Judgment: Poor Psychosis: Denies Diagnoses bipolar depression (bipolar 2 d/o) SAPNA alcohol use d/o in short-term remission A-FIB/CHADSVASC A-FIB History Current/History of A-Fib/PAF?: No Current PO Anticoag Therapy: No Age/Risk Factor Scoring CHADSVASC: CHADSVASC Response (Comments) Value Gender Risk Factor Male 0 Hx of HTN Yes 1 Hx of Diabetes Yes 1 Total 2 Treatment Treatment ordered: NONE Reason Anticoagulant not given: Not indicated/[id number] Assessment Pt seen this morning stating "I feel very anxious" asking for something to help him. Advised pt to lay down and would give him something to help his anxiety. Gave pt 2mg ativan x1 for anxiety and calmed down quickly after receiving falling asleep in his bed. Pt possibly suffering alcohol withdrawal symptoms as bal pos on admission and he does have a history of heavy alcohol use although he denies heavy use prior medical admission. Will, for safety, put pt on ciwa protocol with available ativan for possible withdrawal as pt anxious and lauren mulous this morning appear to possibly be in alcohol withdrawal. Agreeable to restarting his outpatient medications Abilify, celexa, and remeron. Denies current SI/HI, hallucinations, delusions. Feels safe here. Appears depressed. Initial Treatment Plan 1. Patient was admitted on a 9.37 status. 2. Complete history was obtained. 3. With patients permission, family will be contacted and database will be expanded. 4. Patients medication regimen will be reviewed and changed accordingly. 5. Patient will be provided with protected environment. 6. Patient will be treated with individual, group, and milieu therapies. 7. Patient will receive supportive psych-education. 8. Discharge planning will commence immediately. 9. Outpatient follow-up treatment will be strongly recommended. 10. The initial treatment plan will focus initially on: * Depression. * Risk for suicide. 11. remeron 15mg qhs, abilify 15mg bid, vistaril 50mg q6hr prn anxiety, ciwa protocol with ativan available, celexa 20mg qhs. ESTIMATED LENGTH OF STAY: 7-10 DAYS. TIME SPENT COUNSELING AND COORDINATING INITIAL CARE: 60 minutes. Vital Signs Vital Signs Date Time Temp Pulse Resp B/P (MAP) Pulse Ox O2 Delivery O2 Flow Rate FiO2 04/02/19 06:36 98.1 84 14 116/65 (82) 04/01/19 18:37 98 Laboratory Data 24H Labs Laboratory Tests 2 04/01/19 21:37: Bedside Glucose (Misc Panel) 183H 04/02/19 06:23: Bedside Glucose (Misc Panel) 65L Medications Scheduled Aripiprazole (Abilify) 15 Mg Tablet, 15 MG PO BID for ., (Reported) Aspirin (Aspirin) 325 Mg Tab, 325 MG PO DAILY for ., (Reported) Atorvastatin Calcium (Atorvastatin Calcium) 40 Mg Tab, 40 MG PO DAILY for ., ( Reported) Cholecalciferol (Vitamin D3) (Vitamin D3) 2,000 Unit Tablet, 2,000 UNIT PO DAILY for ., (Reported) Citalopram Hydrobromide (Citalopram HBr) 10 Mg Tablet, 10 MG PO QHS for ., (Reported) Cyanocobalamin (Vitamin B-12) (Vitamin B-12) 1,000 Mcg Tab, 1,000 MCG PO DAILY for ., (Reported) Ergocalciferol (Vitamin D2) (Vitamin D2) 50,000 Unit Cap, 50,000 UNIT PO 1XWK for ., (Reported) TAKES ON FRIDAY Gabapentin (Gabapentin) 300 Mg Capsule, 300 MG PO BID for ., (Reported) Insulin Detemir (Levemir) 100 Unit/1 Ml Vial, 20 UNITS SC BID Please take 20 units of levemir subcutaneously in the morning and 20 units in the evening daily. Insulin Lispro (Humalog Kwikpen U-100) 100 Unit/1 Ml Insuln.pen, 1 DOSE SC AC for ., (Reported) PER SLIDING SCALE Irbesartan (Irbesartan) 150 Mg Tablet, 75 MG PO QHS for ., (Reported) Ropinirole HCl (Ropinirole HCl) 0.25 Mg Tablet, 0.75 MG PO QHS for ., (Reported) Scheduled PRN Hydroxyzine HCl (Hydroxyzine HCl) 50 Mg Tablet, 50 MG PO Q6H PRN for ANXIETY/AGITATION, (Reported) Mirtazapine (Remeron) 15 Mg Tablet, 15 MG PO QHS PRN for SLEEP, (Reported) Allergies Coded Allergies: quetiapine (Verified Adverse Reaction, Intermediate, Leg Cramps, 03/15/19) trazodone (Verified Adverse Reaction, Intermediate, leg cramps, 03/15/19) varenicline (Verified Adverse Reaction, Intermediate, Nightmares, 10/14/18) morphine (Verified Adverse Reaction, Mild, Nausea, Stomach Ache, 10/14/18) LUCRECIA RUIZ DO Apr 02, 2019 10:07
[2019-04-02] MEDS: VITAMIN D 1,000 INTERNATIONAL UNITS TABLET PO SCH (10:23)
[2019-04-02] MEDS: ARIPiprazole 15 MG TAB (AbiLIFY) PO SCH ×2 (10:23→21:35)
[2019-04-02] MEDS: MULTIVITAMINS/MINERALS THERAP 1 TAB PO SCH (10:23)
[2019-04-02] MEDS: CYANOCOBALAMIN 500 MCG TAB PO SCH (10:23)
[2019-04-02] MEDS: ASPIRIN 325 MG TAB PO SCH (10:23)
[2019-04-02] MEDS: GABAPENTIN 300 MG CAP PO SCH ×2 (10:24→21:35)
[2019-04-02] MEDS: ATORVASTATIN 20 MG TAB PO SCH (10:24)
[2019-04-02] MEDS: FOLIC ACID 1 MG TAB PO SCH (10:24)
[2019-04-02] MEDS: THIAMINE 100 MG TAB PO SCH (10:24)
[2019-04-02] MEDS: LEVEMIR (INSULIN DETEMIR) 1 UNITS/0.01ML SC SCH ×3 (11:50→22:39)
[2019-04-02] MEDS: LORazepam 2 MG TAB PO SCH ×2 (12:37→17:43)
[2019-04-02] MEDS: hydrOXYzine 50 MG TAB PO PRN (14:15)
[2019-04-02 18:00] VITALS: BP 108/61
[2019-04-02] MEDS: CitaloPRAM (CeleXA) 20 MG TAB PO SCH (21:35)
[2019-04-02] MEDS: IRBESARTAN 150 MG TAB PO SCH (21:49)
[2019-04-02] MEDS: rOPINIRole 0.25 MG TAB(REQUIP) PO SCH (21:50)
[2019-04-03] MEDS: LORazepam 2 MG TAB PO SCH ×2 (06:00)
[2019-04-03 06:41] VITALS: BP 105/57
[2019-04-03] MEDS: HumaLOG INSULIN (NovoLOG) PER UNIT SC SCH ×4 (06:43→22:53)
[2019-04-03] MEDS: GABAPENTIN 300 MG CAP PO SCH ×3 (08:15→22:37)
[2019-04-03] MEDS: THIAMINE 100 MG TAB PO SCH (08:15)
[2019-04-03] MEDS: FOLIC ACID 1 MG TAB PO SCH (08:15)
[2019-04-03] MEDS: MULTIVITAMINS/MINERALS THERAP 1 TAB PO SCH (08:15)
[2019-04-03] MEDS: hydrOXYzine 50 MG TAB PO PRN (08:16)
[2019-04-03] MEDS: ASPIRIN 325 MG TAB PO SCH (08:16)
[2019-04-03] MEDS: ARIPiprazole 15 MG TAB (AbiLIFY) PO SCH ×2 (08:16→21:00)
[2019-04-03] MEDS: CYANOCOBALAMIN 500 MCG TAB PO SCH (08:16)
[2019-04-03] MEDS: ATORVASTATIN 20 MG TAB PO SCH (08:16)
[2019-04-03] MEDS: VITAMIN D 1,000 INTERNATIONAL UNITS TABLET PO SCH (08:16)
[2019-04-03] MEDS: LEVEMIR (INSULIN DETEMIR) 1 UNITS/0.01ML SC SCH ×2 (08:17→22:56)
[2019-04-03] MEDS: LORazepam 1 MG TAB PO SCH ×4 (09:58→22:37)
[2019-04-03] MEDS: NEOSPORIN TOP OINT 15GM TOP SCH (14:39)
[2019-04-03 16:19] VITALS: BP 94/61
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
[2019-04-03] MEDS: MIRTAZAPINE 15 MG TAB PO PRN (22:37)
[2019-04-03] MEDS: rOPINIRole 0.25 MG TAB(REQUIP) PO SCH (22:38)
[2019-04-03] MEDS: CitaloPRAM (CeleXA) 20 MG TAB PO SCH (22:38)
[2019-04-03] MEDS: IRBESARTAN 150 MG TAB PO SCH (22:41)
[2019-04-04] MEDS: LORazepam 1 MG TAB PO SCH ×4 (02:00→17:36)
[2019-04-04] MEDS: HumaLOG INSULIN (NovoLOG) PER UNIT SC SCH ×5 (06:32→22:05)
[2019-04-04 06:45] VITALS: BP 112/67
[2019-04-04] MEDS: ASPIRIN 325 MG TAB PO SCH (09:37)
[2019-04-04] MEDS: ATORVASTATIN 20 MG TAB PO SCH (09:37)
[2019-04-04] MEDS: ARIPiprazole 15 MG TAB (AbiLIFY) PO SCH ×2 (09:37→21:55)
[2019-04-04] MEDS: MULTIVITAMINS/MINERALS THERAP 1 TAB PO SCH (09:37)
[2019-04-04] MEDS: THIAMINE 100 MG TAB PO SCH (09:37)
[2019-04-04] MEDS: VITAMIN D 1,000 INTERNATIONAL UNITS TABLET PO SCH (09:37)
[2019-04-04] MEDS: FOLIC ACID 1 MG TAB PO SCH (09:37)
[2019-04-04] MEDS: GABAPENTIN 300 MG CAP PO SCH ×3 (09:37→21:55)
[2019-04-04] MEDS: LEVEMIR (INSULIN DETEMIR) 1 UNITS/0.01ML SC SCH ×2 (09:37→22:05)
[2019-04-04] MEDS: CYANOCOBALAMIN 500 MCG TAB PO SCH (09:37)
[2019-04-04] MEDS: NEOSPORIN TOP OINT 15GM TOP SCH (09:39)
[2019-04-04] MEDS ORDERED: CitaloPRAM (CeleXA) 10 MG TABLET PO ONE (10:00)
[2019-04-04 16:03] VITALS: BP 131/77
[2019-04-04] MEDS: rOPINIRole 0.25 MG TAB(REQUIP) PO SCH (21:55)
[2019-04-04] MEDS: PILL CUTTER 1 EACH XX PRN (21:55)
[2019-04-04] MEDS: IRBESARTAN 150 MG TAB PO SCH (21:56)
[2019-04-05] MEDS: LORazepam 1 MG TAB PO SCH ×2 (06:00)
[2019-04-05] MEDS: HumaLOG INSULIN (NovoLOG) PER UNIT SC SCH ×5 (06:10→21:00)
[2019-04-05 06:38] VITALS: BP 113/66
[2019-04-05] MEDS: LEVEMIR (INSULIN DETEMIR) 1 UNITS/0.01ML SC SCH ×2 (08:46→22:08)
[2019-04-05] MEDS: MULTIVITAMINS/MINERALS THERAP 1 TAB PO SCH (08:47)
[2019-04-05] MEDS: FOLIC ACID 1 MG TAB PO SCH (08:47)
[2019-04-05] MEDS: CYANOCOBALAMIN 500 MCG TAB PO SCH (08:47)
[2019-04-05] MEDS: ATORVASTATIN 20 MG TAB PO SCH (08:47)
[2019-04-05] MEDS: THIAMINE 100 MG TAB PO SCH (08:47)
[2019-04-05] MEDS: GABAPENTIN 300 MG CAP PO SCH ×3 (08:47→21:59)
[2019-04-05] MEDS: ARIPiprazole 15 MG TAB (AbiLIFY) PO SCH ×2 (08:47→21:59)
[2019-04-05] MEDS: NEOSPORIN TOP OINT 15GM TOP SCH (08:47)
[2019-04-05] MEDS: VITAMIN D 1,000 INTERNATIONAL UNITS TABLET PO SCH (08:47)
[2019-04-05] MEDS: ASPIRIN 325 MG TAB PO SCH (08:47)
[2019-04-05] MEDS: CitaloPRAM (CeleXA) 10 MG TABLET PO SCH (08:48)
--- NOTE | 2019-04-05 10:45 | MHIPNPDOC ---
[facility] Progress Note Progress Note DATE OF SERVICE: 04/05/19 HISTORY: Patient is a 48 -year-old , male, has a history of depression, recently d/c IM 1 wk ago who was seen as a consult by myself s/p OD on insulin as SA and per my consult note "Per medical admission note "Mr. Rust is a 48-year-old male who was brought to the ED after attempting suicide by overdosing on insulin. He was discharged from the inpatient psych unit a few days ago. When asked what happened he didn't say much, but admitted that things were not going well after he was discharged from the hospital and this is why he overdosed on insulin. When asked what opiates he took he didn't know. Currently he continues to have suicidal ideation but denies homicidal ideation. He arrived, he was initially completely altered and , his glucose was 37 , serum ethanol and opiates are positive. He received several amps of D50 and was started on D10 half-normal saline at 250ml per hour was 220. His mental status improved transiently but he became hypoglycemic again. He also received 2 doses of Narcan with minimal improvement in his mental status. Pt seen today (03/30/19) and states he doesn't know what happened regarding his mood but started feeling depressed after he was discharged from [facility] Friday he believes b/c his medication wasn't working the same as it had been on the unit. Asked pt if he had been socializing since being discharged as he was social with his peers daily on the unit which seemed to help his mood and future outlook and states "no." States he's agreeable to being admitted again to [facility] for treatment of depression and incites that something be done with his medication so he feels well when d/c. Did speak with pt that will adjust his medications based on symptoms and tolerance when on the unit but that it appears his lack of socialization when at home most likely has a lot to do with his depressive and suicidal thoughts as that is the big difference between being on the unit at home which he agrees. States he feels "ok" today but fears going home and feeling depressed and suicidal if he doesn't get further psychiatric treatment on [facility]." Pt then when on unit 03/30/19 suffered hyperglycemia with blood sugar in the 500s and not coming down after receiving 15unit of insulin demanding to return to medical floor for treatment of hyperglycemia so discharged with only about 4hr stay on [facility] back to medical floor for treatment. Uncontrolled hyperglycemia treated on medical floor and pt readmitted to [facility] for treatment of depression and being s/p SA. VITAL SIGNS: See below. NEW TEST RESULTS: See below. CURRENT MEDICATIONS: See below. MENTAL STATUS EXAMINATION: General Appearance: well groomed, appears stated age, hospital scrubs/clothing Build: average Demeanor: average, less anxious Eye Contact: average Activity: less anxious, Behavior: cooperative, restless (mild) Speech: reg/rate,rhythm,volume Mood " I feel excellent" Affect: appropriate, congruent, less anxious Thought Process: logical/linear, racing (mildly) Thought Content (Delusions): denies SI, HI, AVH Thought Content (Other): appropriate Thought Content (Aggressive): none reported Perception (Hallucinations): none reported Perception (Other): none reported Cognition (Impairment of): none reported Cognition(Intelligence Est.): average Oriented: Awake, Alert, Oriented times three Insight: fair Judgment: fair Psychosis: Denies DIAGNOSES: 1. bipolar depression (bipolar 2 d/o) 2. SAPNA 3. alcohol use d/o in short-term remission ASSESSMENT: Pt seen this morning stating he feels "excellent" today and that for the last two days his mood has been really good. He reports he had a good weekend. He denies any side effects, and stats he just feels really "positive." He denies any anxiety "what so ever" now, but does ask if his celexa can be increased. He reports his anxiety was more related to worrying about his girlfriend." He reports he has been in contact with her and they are doing really well, and she is very supportive. He also reports stressors related to working. He was off work for a few days and was worried financially, but knows that he will be able to go back to work when he leaves here and is looking forward to that. He reports that this morning he refused the Ativan, because he doesn't feel like he is in withdrawal. He states his last drinks were on Friday last week when he drank a six pack, but states prior to that he hadn't had a drink in 90 days. He doesn't believe his anxiety is related to drinking at all. He reports he doesn't believe he ever really wanted to kill himself, and states he felt it was more of a " cry for help" because he was really "struggling". He reports today he is "excited about things, and its been a while since I've felt that way." He has been attending groups and finds them helpful. Denies current SI/HI, hallucinations, delusions. Feels safe here. Appears well today and in a good mood. MANAGEMENT PLAN: d/c suriwa protocol, d/c Ativan, increase Celexa to 30mg qhs 1. remeron 15mg qhs 2. abilify 15mg bid 3. vistaril 50mg q6hr prn anxiety 5. celexa 20mg qhs. TIME SPENT: 30 minutes. Vital Signs Vital Signs Date Time Temp Pulse Resp B/P (MAP) Pulse Ox O2 Delivery O2 Flow Rate FiO2 04/05/19 06:38 97.8 96 14 113/66 (82) 04/01/19 18:37 98 Laboratory Data 24H Labs Laboratory Tests 2 04/04/19 11:47: Bedside Glucose (Misc Panel) 344H 04/04/19 16:54: Bedside Glucose (Misc Panel) 385H 04/04/19 22:01: Bedside Glucose (Misc Panel) 279H 04/05/19 06:07: Bedside Glucose (Misc Panel) 45L 04/05/19 06:43: Bedside Glucose (Misc Panel) 168H Current Medications Current Medications Medications (Trade) Dose Ordered Sig/Vera Route PRN Reason Start Time Stop Time Status Last Admin Dose Admin Aripiprazole (AbiLIFY) 15 mg BID PO 04/01/19 21:00 04/05/19 08:47 Aspirin (Aspirin) 325 mg DAILY PO 04/02/19 09:00 04/05/19 08:47 Atorvastatin Calcium (Lipitor) 40 mg DAILY PO 04/02/19 09:00 04/05/19 08:47 Citalopram Hydrobromide (CeleXA) 10 mg QHS PO 04/01/19 21:00 04/02/19 10:09 DC 04/01/19 21:47 Citalopram Hydrobromide (CeleXA) 20 mg QHS PO 04/02/19 21:00 04/04/19 09:26 DC 04/03/19 22:38 Citalopram Hydrobromide (CeleXA) 30 mg QAM PO 04/05/19 09:00 04/05/19 08:48 Cyanocobalamin (Vitamin B12) 1,000 mcg DAILY PO 04/02/19 09:00 04/05/19 08:47 Dextrose (Dextrose 50%) 25 ml ASDIRECTED PRN IV SEE LABEL COMMENTS 04/01/19 19:15 Folic Acid (Folic Acid) 1 mg DAILY PO 04/02/19 09:00 04/05/19 08:47 Gabapentin (Neurontin) 300 mg BID PO 04/01/19 21:00 04/03/19 12:30 DC 04/03/19 08:15 Gabapentin (Neurontin) 300 mg TID PO 04/03/19 16:00 04/05/19 08:47 Glucagon (Glucagon) 1 mg ASDIRECTED PRN SC SEE LABEL COMMENTS 04/01/19 19:15 Glucose (Glucose) 16 GM ASDIRECTED PRN PO SEE LABEL COMMENTS 04/01/19 19:15 Home Med (Med Rec Complete!) ASDIRECTED XX 04/01/19 20:00 04/01/19 20:00 DC Hydroxyzine HCl (Atarax) 50 mg Q6HP PRN PO ANXIETY/AGITATION 04/01/19 19:15 04/03/19 08:16 Insulin Detemir (Levemir Insulin) 20 units BID SC 04/01/19 21:00 04/05/19 08:46 Insulin Human Lispro (HumaLOG INSULIN) See Protocol Table AC SC 04/02/19 07:30 04/02/19 07:30 DC Insulin Human Lispro (HumaLOG INSULIN) See Protocol Table AC SC 04/02/19 07:30 04/05/19 07:33 Insulin Human Lispro (HumaLOG INSULIN) See Protocol Table QHS SC 04/03/19 21:00 04/04/19 22:05 Irbesartan (Avapro) 75 mg QHS PO 04/01/19 21:00 04/04/19 21:56 Lorazepam (Ativan) 1 mg Q4H PO 04/03/19 10:00 04/04/19 06:01 DC 04/04/19 06:01 Lorazepam (Ativan) 1 mg Q6H PO 04/04/19 12:00 04/05/19 06:01 DC 04/04/19 17:36 Lorazepam (Ativan) 2 mg Q6H PO 04/02/19 12:00 04/03/19 06:01 DC 04/02/19 17:43 Mirtazapine (Remeron) 15 mg QHSP PRN PO INSOMNIA 04/01/19 19:15 04/03/19 22:37 Multivitamins (Theragram-M) 1 tab DAILY PO 04/02/19 09:00 04/05/19 08:47 Neomycin/ Polymyxin/ Bacitracin (Neosporin) TO L. METATARSAL HEAD UL... DAILY TOP 04/03/19 14:00 04/05/19 08:47 Ropinirole HCl (Requip) 0.75 mg QHS PO 04/01/19 21:00 04/04/19 21:55 Thiamine HCl (Thiamine HCl) 100 mg DAILY PO 04/02/19 09:00 04/05/19 08:47 Vitamin D (Vitamin D) 2,000 units DAILY PO 04/02/19 09:00 04/05/19 08:47 Allergies Coded Allergies: quetiapine (Verified Adverse Reaction, Intermediate, Leg Cramps, 03/15/19) trazodone (Verified Adverse Reaction, Intermediate, leg cramps, 03/15/19) varenicline (Verified Adverse Reaction, Intermediate, Nightmares, 10/14/18) morphine (Verified Adverse Reaction, Mild, Nausea, Stomach Ache, 10/14/18) OUMOU SULTANA MD Apr 05, 2019 10:45
--- NOTE | 2019-04-05 16:38 | MHIPN ---
DATE: 04/03/2019 SUBJECTIVE: "I feel depressed and anxious." OBJECTIVE: He is a 48-year-old male with a history of depression, who was admitted to the medical side for insulin overdose after attempting suicide. He was seen by me for the consultation. His blood sugar was fluctuating after the overdose; however, it is now around 200. He is on sliding scale insulin regimen. Reports his sleep and appetite are good. MENTAL STATUS EXAMINATION: Casually dressed, cooperative. Made good eye contact. Speech rate, rhythm, and volume are good. Mood is depressed. Affect is constricted, somewhat anxious. Thought process is linear, goal directed. Thought content: Denies any delusions. Denies any suicidal or homicidal ideas. Denies auditory or visual hallucinationss. Insight and judgment are fair. Memory: Immediate, remote and recent are good. Oriented to time, place and person. VITAL SIGNS: Temperature 97.2, pulse is 106, respiratory rate is 18, blood pressure 105/57. REVIEW OF SYSTEMS: Denies chest pain, palpitations. Denies cough or shortness of breath. Denies abdominal pain, dysuria. Denies numbness or tingling or dizziness. Gait is normal. DIAGNOSIS: 1. Bipolar depression. 2. Generalized anxiety disorder. 3. Alcohol use disorder. PLAN: Increase his gabapentin to 300 mg three times a day. Continue the rest of the medications. His Celexa was raised yesterday to 20 mg once a day. Continue individual, group and milieu therapy. Coordination of care is done with social work and nursing staff.
[2019-04-05 16:44] VITALS: BP 134/69
--- NOTE | 2019-04-05 18:28 | MHIPN ---
DATE: 04/04/2019 SUBJECTIVE: Reports he is feeling better, less anxious, however complains of low energy and some depressed mood. Patient was seen by chief nurse executive for fluctuation of his blood sugar. Still continues to be hyperglycemic and there is some fluctuations. OBJECTIVE: He is a 48-year-old male with history of bipolar disorder, was admitted for suicide attempt by overdosing on insulin. He was initially admitted to the medical floor, from there he was transferred to inpatient mental health unit ([facility]). Currently, reported that he is feeling somewhat better, however still depressed, complains of low energy. MENTAL STATUS EXAMINATION: Casually dressed, cooperative, made good eye contact. Psychomotor activity is normal. Mood is depressed, affect is constricted. Speech rate, rhythm, and volume are good. Thought process: Linear, goal-directed. Thought content: Denied any suicidal or homicidal ideas, no paranoid delusions. Insight and judgment are fair to limited. Memory: Immediate, remote, recent are good. He is alert, oriented to time, place, and person. DIAGNOSIS: Bipolar 1 disorder, most recent episode depressed. PLAN: Increase his citalopram to 30 mg daily. Continue individual, group, and milieu therapy. ESTIMATED LENGTH OF STAY: 3-4 days.
[2019-04-05] MEDS: IRBESARTAN 150 MG TAB PO SCH (21:58)
[2019-04-05] MEDS: rOPINIRole 0.25 MG TAB(REQUIP) PO SCH (21:59)
[2019-04-06 07:10] VITALS: BP 115/68
[2019-04-06] MEDS: HumaLOG INSULIN (NovoLOG) PER UNIT SC SCH ×4 (07:30→22:09)
--- NOTE | 2019-04-06 08:31 | MHIPNPDOC ---
[facility] Progress Note Progress Note DATE OF SERVICE: 04/06/19 HISTORY: Patient is a 48 -year-old , male, has a history of depression, recently d/c IM 1 wk ago who was seen as a consult by myself s/p OD on insulin as SA and per my consult note "Per medical admission note "Mr. Rust is a 48-year-old male who was brought to the ED after attempting suicide by overdosing on insulin. He was discharged from the inpatient psych unit a few days ago. When asked what happened he didn't say much, but admitted that things were not going well after he was discharged from the hospital and this is why he overdosed on insulin. When asked what opiates he took he didn't know. Currently he continues to have suicidal ideation but denies homicidal ideation. He arrived, he was initially completely altered and , his glucose was 37 , serum ethanol and opiates are positive. He received several amps of D50 and was started on D10 half-normal saline at 250ml per hour was 220. His mental status improved transiently but he became hypoglycemic again. He also received 2 doses of Narcan with minimal improvement in his mental status. Pt seen today (03/30/19) and states he doesn't know what happened regarding his mood but started feeling depressed after he was discharged from [facility] Friday he believes b/c his medication wasn't working the same as it had been on the unit. Asked pt if he had been socializing since being discharged as he was social with his peers daily on the unit which seemed to help his mood and future outlook and states "no." States he's agreeable to being admitted again to [facility] for treatment of depression and incites that something be done with his medication so he feels well when d/c. Did speak with pt that will adjust his medications based on symptoms and tolerance when on the unit but that it appears his lack of socialization when at home most likely has a lot to do with his depressive and suicidal thoughts as that is the big difference between being on the unit at home which he agrees. States he feels "ok" today but fears going home and feeling depressed and suicidal if he doesn't get further psychiatric treatment on [facility]." Pt then when on unit 03/30/19 suffered hyperglycemia with blood sugar in the 500s and not coming down after receiving 15unit of insulin demanding to return to medical floor for treatment of hyperglycemia so discharged with only about 4hr stay on [facility] back to medical floor for treatment. Uncontrolled hyperglycemia treated on medical floor and pt readmitted to [facility] for treatment of depression and being s/p SA. VITAL SIGNS: See below. NEW TEST RESULTS: See below. CURRENT MEDICATIONS: See below. MENTAL STATUS EXAMINATION: General Appearance: unkempt, appears stated age, own clothing Build: average Demeanor: average Eye Contact: fair Activity: average Behavior: cooperative Speech: reg/rate,rhythm,volume Mood: less depressed, anxious Mood "feeling back to myself" Affect: less constricted, congruent Thought Process: logical/linear, less depressed Thought Content (Delusions): denies SI, HI, AVH Thought Content (Other): appropriate Thought Content (Aggressive): none reported Perception (Hallucinations): none reported Perception (Other): none reported Cognition (Impairment of): none reported Cognition(Intelligence Est.): average Oriented: Awake, Alert, Oriented times three Insight: poor Judgment: Poor Psychosis: Denies DIAGNOSES: bipolar depression (bipolar 2 d/o) SAPNA alcohol use d/o in short-term remission ASSESSMENT::Pt seen and states that his mood is better today and that he feels more like himself. Discussed his future plans to prevent him for becoming suicidal and attempt suicide again and states the big thing for home was not returning to work after discharge and sitting at home which he admits isn't good for him. States he plans to return to work after d/c this time, talk with his girlfriend more, go to a walk in appt if he feels he needs to. States he slept well last night. Feels he is tolerating his medications and they're beneficial. He is attending groups and finding them helpful. He denies SI/HI, hallucinations, delusions. Pt feels safe here. MANAGEMENT PLAN: continue plan Medications: remeron 15mg qhs abilify 15mg bid vistaril 50mg q6hr prn anxiety celexa 20mg qhs. TIME SPENT: 30 minutes. Vital Signs Vital Signs Date Time Temp Pulse Resp B/P (MAP) Pulse Ox O2 Delivery O2 Flow Rate FiO2 04/06/19 07:10 98.0 92 115/68 (84) 04/05/19 16:44 18 9/12/19 18:37 98 Laboratory Data 24H Labs Laboratory Tests 2 04/05/19 12:15: Bedside Glucose (Misc Panel) 258H 04/05/19 16:57: Bedside Glucose (Misc Panel) 260H 04/05/19 22:04: Bedside Glucose (Misc Panel) 279H 04/06/19 05:49: Bedside Glucose (Misc Panel) 185H Current Medications Current Medications Medications (Trade) Dose Ordered Sig/Vera Route PRN Reason Start Time Stop Time Status Last Admin Dose Admin Aripiprazole (AbiLIFY) 15 mg BID PO 04/01/19 21:00 04/05/19 21:59 Aspirin (Aspirin) 325 mg DAILY PO 04/02/19 09:00 04/05/19 08:47 Atorvastatin Calcium (Lipitor) 40 mg DAILY PO 04/02/19 09:00 04/05/19 08:47 Citalopram Hydrobromide (CeleXA) 10 mg QHS PO 04/01/19 21:00 04/02/19 10:09 DC 04/01/19 21:47 Citalopram Hydrobromide (CeleXA) 20 mg QHS PO 04/02/19 21:00 04/04/19 09:26 DC 04/03/19 22:38 Citalopram Hydrobromide (CeleXA) 30 mg QAM PO 04/05/19 09:00 04/05/19 08:48 Cyanocobalamin (Vitamin B12) 1,000 mcg DAILY PO 04/02/19 09:00 04/05/19 08:47 Dextrose (Dextrose 50%) 25 ml ASDIRECTED PRN IV SEE LABEL COMMENTS 04/01/19 19:15 Folic Acid (Folic Acid) 1 mg DAILY PO 04/02/19 09:00 04/05/19 08:47 Gabapentin (Neurontin) 300 mg BID PO 04/01/19 21:00 04/03/19 12:30 DC 04/03/19 08:15 Gabapentin (Neurontin) 300 mg TID PO 04/03/19 16:00 04/05/19 21:59 Glucagon (Glucagon) 1 mg ASDIRECTED PRN SC SEE LABEL COMMENTS 04/01/19 19:15 Glucose (Glucose) 16 GM ASDIRECTED PRN PO SEE LABEL COMMENTS 04/01/19 19:15 Home Med (Med Rec Complete!) ASDIRECTED XX 04/01/19 20:00 04/01/19 20:00 DC Hydroxyzine HCl (Atarax) 50 mg Q6HP PRN PO ANXIETY/AGITATION 04/01/19 19:15 04/03/19 08:16 Insulin Detemir (Levemir Insulin) 20 units BID SC 04/01/19 21:00 04/05/19 22:08 Insulin Human Lispro (HumaLOG INSULIN) See Protocol Table AC [place] 04/02/19 07:30 04/02/19 07:30 DC Insulin Human Lispro (HumaLOG INSULIN) See Protocol Table AC [place] 04/02/19 07:30 04/06/19 07:30 Insulin Human Lispro (HumaLOG INSULIN) See Protocol Table QHS [place] 04/03/19 21:00 04/04/19 22:05 Irbesartan (Avapro) 75 mg QHS PO 04/01/19 21:00 04/05/19 21:58 Lorazepam (Ativan) 1 mg Q4H PO 04/03/19 10:00 04/04/19 06:01 DC 04/04/19 06:01 Lorazepam (Ativan) 1 mg Q6H PO 04/04/19 12:00 04/05/19 06:01 DC 04/04/19 17:36 Lorazepam (Ativan) 2 mg Q6H PO 04/02/19 12:00 04/03/19 06:01 DC 04/02/19 17:43 Mirtazapine (Remeron) 15 mg QHSP PRN PO INSOMNIA 04/01/19 19:15 04/03/19 22:37 Multivitamins (Theragram-M) 1 tab DAILY PO 04/02/19 09:00 04/05/19 08:47 Neomycin/ Polymyxin/ Bacitracin (Neosporin) TO L. METATARSAL HEAD UL... DAILY TOP 04/03/19 14:00 04/05/19 08:47 Ropinirole HCl (Requip) 0.75 mg QHS PO 04/01/19 21:00 04/05/19 21:59 Thiamine HCl (Thiamine HCl) 100 mg DAILY PO 04/02/19 09:00 04/05/19 08:47 Vitamin D (Vitamin D) 2,000 units DAILY PO 04/02/19 09:00 04/05/19 08:47 Allergies Coded Allergies: quetiapine (Verified Adverse Reaction, Intermediate, Leg Cramps, 03/15/19) trazodone (Verified Adverse Reaction, Intermediate, leg cramps, 03/15/19) varenicline (Verified Adverse Reaction, Intermediate, Nightmares, 10/14/18) morphine (Verified Adverse Reaction, Mild, Nausea, Stomach Ache, 10/14/18) LUCRECIA RUIZ DO Apr 06, 2019 8:31 am
[2019-04-06] MEDS: CYANOCOBALAMIN 500 MCG TAB PO SCH (09:01)
[2019-04-06] MEDS: GABAPENTIN 300 MG CAP PO SCH ×3 (09:01→21:57)
[2019-04-06] MEDS: CitaloPRAM (CeleXA) 10 MG TABLET PO SCH (09:01)
[2019-04-06] MEDS: ATORVASTATIN 20 MG TAB PO SCH (09:01)
[2019-04-06] MEDS: MULTIVITAMINS/MINERALS THERAP 1 TAB PO SCH (09:01)
[2019-04-06] MEDS: VITAMIN D 1,000 INTERNATIONAL UNITS TABLET PO SCH (09:01)
[2019-04-06] MEDS: ARIPiprazole 15 MG TAB (AbiLIFY) PO SCH ×2 (09:01→21:56)
[2019-04-06] MEDS: THIAMINE 100 MG TAB PO SCH (09:01)
[2019-04-06] MEDS: ASPIRIN 325 MG TAB PO SCH (09:01)
[2019-04-06] MEDS: NEOSPORIN TOP OINT 15GM TOP SCH (09:02)
[2019-04-06] MEDS: FOLIC ACID 1 MG TAB PO SCH (09:04)
[2019-04-06] MEDS: LEVEMIR (INSULIN DETEMIR) 1 UNITS/0.01ML SC SCH ×2 (09:04→22:06)
[2019-04-06 16:47] VITALS: BP 117/68
[2019-04-06] MEDS: PILL CUTTER 1 EACH XX PRN (21:57)
[2019-04-06] MEDS: rOPINIRole 0.25 MG TAB(REQUIP) PO SCH (21:57)
[2019-04-06] MEDS: IRBESARTAN 150 MG TAB PO SCH (21:58)
[2019-04-07 06:34] VITALS: BP 106/62
[2019-04-07] MEDS: HumaLOG INSULIN (NovoLOG) PER UNIT SC SCH ×4 (07:39→21:39)
[2019-04-07] MEDS: NEOSPORIN TOP OINT 15GM TOP SCH ×2 (09:00→11:59)
[2019-04-07] MEDS: LEVEMIR (INSULIN DETEMIR) 1 UNITS/0.01ML SC SCH ×2 (09:46→21:40)
[2019-04-07] MEDS: VITAMIN D 1,000 INTERNATIONAL UNITS TABLET PO SCH (09:47)
[2019-04-07] MEDS: FOLIC ACID 1 MG TAB PO SCH (09:48)
[2019-04-07] MEDS: ATORVASTATIN 20 MG TAB PO SCH (09:48)
[2019-04-07] MEDS: CYANOCOBALAMIN 500 MCG TAB PO SCH (09:48)
[2019-04-07] MEDS: MULTIVITAMINS/MINERALS THERAP 1 TAB PO SCH (09:48)
[2019-04-07] MEDS: GABAPENTIN 300 MG CAP PO SCH ×3 (09:48→21:36)
[2019-04-07] MEDS: ASPIRIN 325 MG TAB PO SCH (09:48)
[2019-04-07] MEDS: CitaloPRAM (CeleXA) 10 MG TABLET PO SCH (09:48)
[2019-04-07] MEDS: ARIPiprazole 15 MG TAB (AbiLIFY) PO SCH ×2 (09:48→21:38)
[2019-04-07] MEDS: THIAMINE 100 MG TAB PO SCH (09:48)
--- NOTE | 2019-04-07 12:53 | MHIPNPDOC ---
[facility] Progress Note Progress Note DATE OF SERVICE: 04/07/19 HISTORY: Patient is a 48 -year-old , male, has a history of depression, recently d/c IM 1 wk ago who was seen as a consult by myself s/p OD on insulin as SA and per my consult note "Per medical admission note "Mr. Rust is a 48-year-old male who was brought to the ED after attempting suicide by overdosing on insulin. He was discharged from the inpatient psych unit a few days ago. When asked what happened he didn't say much, but admitted that things were not going well after he was discharged from the hospital and this is why he overdosed on insulin. When asked what opiates he took he didn't know. Currently he continues to have suicidal ideation but denies homicidal ideation. He arrived, he was initially completely altered and , his glucose was 37 , serum ethanol and opiates are positive. He received several amps of D50 and was started on D10 half-normal saline at 250ml per hour was 220. His mental status improved transiently but he became hypoglycemic again. He also received 2 doses of Narcan with minimal improvement in his mental status. Pt seen today (03/30/19) and states he doesn't know what happened regarding his mood but started feeling depressed after he was discharged from [facility] Friday he believes b/c his medication wasn't working the same as it had been on the unit. Asked pt if he had been socializing since being discharged as he was social with his peers daily on the unit which seemed to help his mood and future outlook and states "no." States he's agreeable to being admitted again to [facility] for treatment of depression and incites that something be done with his medication so he feels well when d/c. Did speak with pt that will adjust his medications based on symptoms and tolerance when on the unit but that it appears his lack of socialization when at home most likely has a lot to do with his depressive and suicidal thoughts as that is the big difference between being on the unit at home which he agrees. States he feels "ok" today but fears going home and feeling depressed and suicidal if he doesn't get further psychiatric treatment on [facility]." Pt then when on unit 03/30/19 suffered hyperglycemia with blood sugar in the 500s and not coming down after receiving 15unit of insulin demanding to return to medical floor for treatment of hyperglycemia so discharged with only about 4hr stay on [facility] back to medical floor for treatment. Uncontrolled hyperglycemia treated on medical floor and pt readmitted to [facility] for treatment of depression and being s/p SA. VITAL SIGNS: See below. NEW TEST RESULTS: See below. CURRENT MEDICATIONS: See below. MENTAL STATUS EXAMINATION: General Appearance: clean, appears stated age, own clothing Build: average Demeanor: average Eye Contact: fair Activity: average Behavior: cooperative, pleasant Speech: reg/rate,rhythm,volume Mood: euthymic, full range Mood "good" Affect: euthymic, congruent Thought Process: logical/linear, future oriented, has plan for when feeling depressed/suicidal to call or get help immediately and named specifics to me (see below) Thought Content (Delusions): denies SI, HI, AVH Thought Content (Other): appropriate Thought Content (Aggressive): none reported Perception (Hallucinations): none reported Perception (Other): none reported Cognition (Impairment of): none reported Cognition(Intelligence Est.): average Oriented: Awake, Alert, Oriented times three Insight: fair Judgment: fair Psychosis: Denies DIAGNOSES: bipolar depression (bipolar 2 d/o) SAPNA alcohol use d/o in short-term remission ASSESSMENT::Pt seen and states that his mood is "good" today and feels ready to go home soon. States his relationship between his girlfriend and he is better and that she is supportive of him and he plans to talk with her more about how shailesh carvalho's doing. Again, discussed his future plans to prevent him for becoming suicidal and attempt suicide again and states states he plans to return to work after d/c, talk with his girlfriend more, go to a walk-in appt if he feels he needs to, call suicide crisis line, go to ED before he acts. States he slept well last night. Feels he is tolerating his medications and they're beneficial. He is attending groups and finding them helpful. He denies SI/HI, hallucinations, delusions. Pt feels safe here. MANAGEMENT PLAN: d/c home tomorrow Medications: remeron 15mg qhs abilify 15mg bid vistaril 50mg q6hr prn anxiety celexa 20mg qhs. TIME SPENT: 30 minutes. Vital Signs Vital Signs Date Time Temp Pulse Resp B/P (MAP) Pulse Ox O2 Delivery O2 Flow Rate FiO2 04/07/19 06:34 98.9 86 14 106/62 (77) 04/01/19 18:37 98 Laboratory Data 24H Labs Laboratory Tests 2 04/06/19 16:58: Bedside Glucose (Misc Panel) 163H 04/06/19 22:05: Bedside Glucose (Misc Panel) 329H 04/07/19 05:55: Bedside Glucose (Misc Panel) 50L 04/07/19 06:21: Bedside Glucose (Misc Panel) 75 04/07/19 07:35: Bedside Glucose (Misc Panel) 101 04/07/19 12:11: Bedside Glucose (Misc Panel) 339H Current Medications Current Medications Medications (Trade) Dose Ordered Sig/Vera Route PRN Reason Start Time Stop Time Status Last Admin Dose Admin Aripiprazole (AbiLIFY) 15 mg BID PO 04/01/19 21:00 04/07/19 09:48 Aspirin (Aspirin) 325 mg DAILY PO 04/02/19 09:00 04/07/19 09:48 Atorvastatin Calcium (Lipitor) 40 mg DAILY PO 04/02/19 09:00 04/07/19 09:48 Citalopram Hydrobromide (CeleXA) 10 mg QHS PO 04/01/19 21:00 04/02/19 10:09 DC 04/01/19 21:47 Citalopram Hydrobromide (CeleXA) 20 mg QHS PO 04/02/19 21:00 04/04/19 09:26 DC 04/03/19 22:38 Citalopram Hydrobromide (CeleXA) 30 mg QAM PO 04/05/19 09:00 04/07/19 09:48 Cyanocobalamin (Vitamin B12) 1,000 mcg DAILY PO 04/02/19 09:00 04/07/19 09:48 Dextrose (Dextrose 50%) 25 ml ASDIRECTED PRN IV SEE LABEL COMMENTS 04/01/19 19:15 Folic Acid (Folic Acid) 1 mg DAILY PO 04/02/19 09:00 04/07/19 09:48 Gabapentin (Neurontin) 300 mg BID PO 04/01/19 21:00 04/03/19 12:30 DC 04/03/19 08:15 Gabapentin (Neurontin) 300 mg TID PO 04/03/19 16:00 04/07/19 09:48 Glucagon (Glucagon) 1 mg ASDIRECTED PRN SC SEE LABEL COMMENTS 04/01/19 19:15 Glucose (Glucose) 16 GM ASDIRECTED PRN PO SEE LABEL COMMENTS 04/01/19 19:15 Home Med (Med Rec Complete!) ASDIRECTED XX 04/01/19 20:00 04/01/19 20:00 DC Hydroxyzine HCl (Atarax) 50 mg Q6HP PRN PO ANXIETY/AGITATION 04/01/19 19:15 04/03/19 08:16 Insulin Detemir (Levemir Insulin) 20 units BID SC 04/01/19 21:00 04/07/19 09:46 Insulin Human Lispro (HumaLOG INSULIN) See Protocol Table AC SC 04/02/19 07:30 04/02/19 07:30 DC Insulin Human Lispro (HumaLOG INSULIN) See Protocol Table AC SC 04/02/19 07:30 04/07/19 12:13 Insulin Human Lispro (HumaLOG INSULIN) See Protocol Table QHS SC 04/03/19 21:00 04/06/19 22:09 Irbesartan (Avapro) 75 mg QHS PO 04/01/19 21:00 04/06/19 21:58 Lorazepam (Ativan) 1 mg Q4H PO 04/03/19 10:00 04/04/19 06:01 DC 04/04/19 06:01 Lorazepam (Ativan) 1 mg Q6H PO 04/04/19 12:00 04/05/19 06:01 DC 04/04/19 17:36 Lorazepam (Ativan) 2 mg Q6H PO 04/02/19 12:00 04/03/19 06:01 DC 04/02/19 17:43 Mirtazapine (Remeron) 15 mg QHSP PRN PO INSOMNIA 04/01/19 19:15 04/03/19 22:37 Multivitamins (Theragram-M) 1 tab DAILY PO 04/02/19 09:00 04/07/19 09:48 Neomycin/ Polymyxin/ Bacitracin (Neosporin) TO L. METATARSAL HEAD UL... DAILY TOP 04/03/19 14:00 04/07/19 11:59 Ropinirole HCl (Requip) 0.75 mg QHS PO 04/01/19 21:00 04/06/19 21:57 Thiamine HCl (Thiamine HCl) 100 mg DAILY PO 04/02/19 09:00 04/07/19 09:48 Vitamin D (Vitamin D) 2,000 units DAILY PO 04/02/19 09:00 04/07/19 09:47 Allergies Coded Allergies: quetiapine (Verified Adverse Reaction, Intermediate, Leg Cramps, 03/15/19) trazodone (Verified Adverse Reaction, Intermediate, leg cramps, 03/15/19) varenicline (Verified Adverse Reaction, Intermediate, Nightmares, 10/14/18) morphine (Verified Adverse Reaction, Mild, Nausea, Stomach Ache, 10/14/18) LUCRECIA RUIZ DO Apr 07, 2019 12:53 pm
[2019-04-07 16:46] VITALS: BP 112/71
[2019-04-07] MEDS: rOPINIRole 0.25 MG TAB(REQUIP) PO SCH (21:35)
[2019-04-07] MEDS: MIRTAZAPINE 15 MG TAB PO PRN (21:36)
[2019-04-07 21:38] VITALS: BP 115/65
[2019-04-07] MEDS: PILL CUTTER 1 EACH XX PRN (21:38)
[2019-04-07] MEDS: IRBESARTAN 150 MG TAB PO SCH (21:38)
[2019-04-08] MEDS: HumaLOG INSULIN (NovoLOG) PER UNIT SC SCH (06:26)
[2019-04-08 06:28] VITALS: BP 134/74
[2019-04-08] MEDS: CitaloPRAM (CeleXA) 10 MG TABLET PO SCH (08:23)
[2019-04-08] MEDS: THIAMINE 100 MG TAB PO SCH (08:24)
[2019-04-08] MEDS: FOLIC ACID 1 MG TAB PO SCH (08:24)
[2019-04-08] MEDS: GABAPENTIN 300 MG CAP PO SCH (08:24)
[2019-04-08] MEDS: ATORVASTATIN 20 MG TAB PO SCH (08:24)
[2019-04-08] MEDS: ARIPiprazole 15 MG TAB (AbiLIFY) PO SCH (08:24)
[2019-04-08] MEDS: ASPIRIN 325 MG TAB PO SCH (08:24)
[2019-04-08] MEDS: VITAMIN D 1,000 INTERNATIONAL UNITS TABLET PO SCH (08:24)
[2019-04-08] MEDS: MULTIVITAMINS/MINERALS THERAP 1 TAB PO SCH (08:24)
[2019-04-08] MEDS: CYANOCOBALAMIN 500 MCG TAB PO SCH (08:24)
[2019-04-08] MEDS: LEVEMIR (INSULIN DETEMIR) 1 UNITS/0.01ML SC SCH (08:25)
[2019-04-08] MEDS: NEOSPORIN TOP OINT 15GM TOP SCH (08:26)
[2019-04-08] MEDS ORDERED: CELE10TA PO (09:13)
[2019-04-08] MEDS ORDERED: HYDR50TA70 PO (09:13)
[2019-04-08] MEDS ORDERED: REME15TA PO (09:13)
[2019-04-08] MEDS ORDERED: ABIL30TA4 PO (09:13)
--- NOTE | 2019-04-22 10:08 | MHDSPDOC ---
[facility] Discharge Summary Discharge Summary DATE OF ADMISSION: Apr 01, 2019 at 6:10 pm DATE OF DISCHARGE: Apr 08, 2019 DISCHARGE DIAGNOSES: bipolar depression (bipolar 2 d/o) SAPNA alcohol use d/o in short-term remission REASON FOR ADMISSION: Patient is a 48 -year-old , male, has a history of depression, recently d/c IM 1 wk ago who was seen as a consult by myself s/p OD on insulin as SA and per my consult note "Per medical admission note "Mr. Rust is a 48-year-old male who was brought to the ED after attempting suicide by overdosing on insulin. He was discharged from the inpatient psych unit a few days ago. When asked what happened he didn't say much, but admitted that things were not going well after he was discharged from the hospital and this is why he overdosed on insulin. When asked what opiates he took he didn't know. Currently he continues to have suicidal ideation but denies homicidal ideation. He arrived, he was initially completely altered and , his glucose was 37 , serum ethanol and opiates are positive. He received several amps of D50 and was sta rted on D10 half-normal saline at 250ml per hour was 220. His mental status improved transiently but he became hypoglycemic again. He also received 2 doses of Narcan with minimal improvement in his mental status. Pt seen today (03/30/19) and states he doesn't know what happened regarding his mood but started feeling depressed after he was discharged from [facility] Friday he believes b/c his medication wasn't working the same as it had been on the unit. Asked pt if he had been socializing since being discharged as he was social with his peers daily on the unit which seemed to help his mood and future outlook and states "no." States he's agreeable to being admitted again to [facility] for treatment of depression and incites that something be done with his medication so he feels well when d/c. Did speak with pt that will adjust his medications based on symptoms and tolerance when on the unit but that it appears his lack of socialization when at home most likely has a lot to do with his depressive and suicidal thoughts as that is the big difference between being on the unit at home which he agrees. States he feels "ok" today but fears going home and feeling depressed and suicidal if he doesn't get further psychiatric treatment on [facility]." Pt then when on unit 03/30/19 suffered hyperglycemia with blood sugar in the 500s and not coming down after receiving 15unit of insulin demanding to return to medical floor for treatment of hyperglycemia so discharged with only about 4hr stay on [facility] back to medical floor for treatment. Uncontrolled hyperglycemia treated on medical floor and pt readmitted to [facility] for treatment of depression and being s/p SA. CONSULTANTS INVOLVED: medicine for diabetes, blood sugar control TREATMENT AND PROGRESS ON THE UNIT : Pt was admitted to [facility], seen for psychiatric assessment and restarted on his outpatient medication abilify 15mg bid, remeron 15mg qhs, celexa 10mg qhs for depression, and requip 0.75mg qhs. He was provided vistaril 50mg q6hr prn anxiety. He was was seen by medicine regarding blood sugar management and insulin dosing for diabetes. Pt found his medications beneficial and tolerated them well. He attended groups daily during his stay. His symptoms improved with treatment. He was able to state a clear cut safety plan and who he would call or see if needed help to prevent him from becoming suicidal and/or attempting suicide again. He was future oriented toward returning to work soon after d/c. On day of discharge he denied depression, anxiety, insomnia, SI/HI, hallucinations, delusions. He was discharged home with follow-up at [facility]. He felt safe for discharge. DISCHARGE ASSESSMENT: Pt seen and states that his mood is "good" today and is looking forward to going home today. States his girlfriend is supportive of him and he plans to talk with her more about how he's doing daily. Reviewed his future plans to prevent him for becoming suicidal and attempt suicide again and who he will call or go see and states he will return to work after d/c, talk wi th his girlfriend more, go to a walk-in appt if he feels he needs to, call suicide crisis line, go and/or call ED before he acts. States he slept well last night. Feels he is tolerating his medications and they're beneficial. He is attending groups and finding them helpful. He denies depression, anxiety, insomnia, SI/HI, hallucinations, delusions. Pt feels safe to be discharged home. MENTAL STATUS EXAMINATION ON DISCHARGE: General Appearance: clean, ds/not appear stated age (older), own clothing Build: average Demeanor: cooperative Eye Contact: poor Activity: average Behavior: cooperative Speech: clear, spontaneous, low in volume Mood: euthymic, full range, bright Mood "great" Affect: euthymic, full, congruent Thought Process: logical/linear Thought Content (Delusions): none reported, denies SI, HI, AVH Thought Content (Other): none reported, appropriate Thought Content (Aggressive): none reported Perception (Hallucinations): none reported Perception (Other): none reported Cognition (Impairment of): none reported Cognition(Intelligence Est.): average Oriented: Awake, Alert, Oriented times three Insight: good Judgment: good Psychosis: Denies MEDICATIONS ON DISCHARGE: remeron 15mg qhs abilify 15mg bid vistaril 50mg q6hr prn anxiety celexa 20mg qhs. PLAN/FOLLOWUP ARRANGEMENTS: D/c home with follow-up at [facility]. The amount of time spent in the coordination of care for this patient was approximately 30 minutes. Vital Signs/I&Os Vital Signs Date Time Temp Pulse Resp B/P (MAP) Pulse Ox O2 Delivery O2 Flow Rate FiO2 04/08/19 06:28 97.9 104 12 134/74 (94) Laboratory Data Labs 24H Laboratory Tests 2 04/07/19 12:11: Bedside Glucose (Misc Panel) 339H 04/07/19 17:00: Bedside Glucose (Misc Panel) 223H 04/07/19 21:19: Bedside Glucose (Misc Panel) 409H 04/08/19 06:25: Bedside Glucose (Misc Panel) 76 Medications Scheduled Aripiprazole (Abilify) 30 Mg Tablet, 15 MG PO DAILY for bipolar depression, #5 Aspirin (Aspirin) 325 Mg Tab, 325 MG PO DAILY for ., (Reported) Atorvastatin Calcium (Atorvastatin Calcium) 40 Mg Tab, 40 MG PO DAILY for ., (Reported) Cholecalciferol (Vitamin D3) (Vitamin D3) 2,000 Unit Tablet, 2,000 UNIT PO DAILY for ., (Reported) Citalopram Hydrobromide (Celexa) 10 Mg Tablet, 30 MG PO QAM for mood, #10 Cyanocobalamin (Vitamin B-12) (Vitamin B-12) 1,000 Mcg Tab, 1,000 MCG PO DAILY for ., (Reported) Ergocalciferol (Vitamin D2) (Vitamin D2) 50,000 Unit Cap, 50,000 UNIT PO 1XWK for ., (Reported) TAKES ON FRIDAY Gabapentin (Gabapentin) 300 Mg Capsule, 300 MG PO BID for ., (Reported) Insulin Detemir (Levemir) 100 Unit/1 Ml Vial, 20 UNITS SC BID for 20 Days, #8 Please take 20 units of levemir subcutaneously in the morning and 20 units in the evening daily. Insulin Lispro (Humalog Kwikpen U-100) 100 Unit/1 Ml Insuln.pen, 1 DOSE SC AC for ., (Reported) PER SLIDING SCALE Irbesartan (Irbesartan) 150 Mg Tablet, 75 MG PO QHS for ., (Reported) Ropinirole HCl (Ropinirole HCl) 0.25 Mg Tablet, 0.75 MG PO QHS for ., (Reported) Scheduled PRN Hydroxyzine HCl (Hydroxyzine HCl) 50 Mg Tablet, 50 MG PO Q6HP PRN for ANXIETY/AGITATION, #30 Mirtazapine (Remeron) 15 Mg Tablet, 15 MG PO QHSP PRN for INSOMNIA, #10 Allergies Coded Allergies: quetiapine (Verified Adverse Reaction, Intermediate, Leg Cramps, 03/15/19) trazodone (Verified Adverse Reaction, Intermediate, leg cramps, 03/15/19) varenicline (Verified Adverse Reaction, Intermediate, Nightmares, 10/14/18) morphine (Verified Adverse Reaction, Mild, Nausea, Stomach Ache, 10/14/18) LUCRECIA RUIZ DO Apr 08, 2019 09:14
== END 2019-04-08 10:30 | disposition home or self-care (01) | DRG 885 ==
LOC: M PSY 18:10
PROVIDERS: ADMIT Psychiatry & Neurology Psychiatry; ATTEND Psychiatry & Neurology Psychiatry
DX: F31.81 Bipolar II disorder (principal); F41.1 Generalized anxiety disorder; F10.10 Alcohol abuse, uncomplicated; E11.65 Type 2 diabetes mellitus with hyperglycemia; E78.5 Hyperlipidemia, unspecified; E11.621 Type 2 diabetes mellitus with foot ulcer; I10 Essential (primary) hypertension; K21.9 Gastro-esophageal reflux disease without esophagitis; G25.81 Restless legs syndrome; I25.10 Atherosclerotic heart disease of native coronary artery without angina pectoris; F17.200 Nicotine dependence, unspecified, uncomplicated; F11.10 Opioid abuse, uncomplicated; N52.9 Male erectile dysfunction, unspecified; Z91.5 Personal history of self-harm; Z79.899 Other long term (current) drug therapy; Z88.5 Allergy status to narcotic agent; Z88.8 Allergy status to other drugs, medicaments and biological substances; Z91.19 Patient's noncompliance with other medical treatment and regimen; Z98.84 Bariatric surgery status; Z79.4 Long term (current) use of insulin

== ENCOUNTER → 2019-04-14 | Outpatient (REF) | payer MEDICARE, MEDICAID ==
[~2019-04-14] MED LIST changes: +ABIL30TA4 PO
[2019-04-14 17:35] LABS: ALBUMIN 3.8 GM/DL (3.2-5.2); ALT/SGPT 44 U/L (12-78); BILIRUBIN,TOTAL 0.7 MG/DL (0.2-1.0); BLOOD UREA NITROGEN 11 MG/DL (7-18); CALCIUM LEVEL 8.7 MG/DL (8.5-10.1); CARBON DIOXIDE LEVEL 28 MEQ/L (21-32); CHLORIDE LEVEL 99 MEQ/L (98-107); CHOLESTEROL LEVEL 174 MG/DL (<200); CREATININE FOR GFR 0.96 MG/DL (0.70-1.30); GLOMERULAR FILTRATION RATE > 60.0 (>60); GLUCOSE, FASTING 258 MG/DL (70-100); HDL CHOLESTEROL 75 MG/DL (>40); LDL CHOLESTEROL 73 MG/DL (<100); NON-HDL-C 99 MG/DL; POTASSIUM SERUM 3.9 MEQ/L (3.5-5.1); SODIUM LEVEL 137 MEQ/L (136-145); TOTAL PROTEIN 7.1 GM/DL (6.4-8.2); TRIGLYCERIDES LEVEL 128 MG/DL (<150)
[2019-04-14 17:36] LABS: TOTAL 25(OH) VITAMIN D 32.5 NG/ML (30.0-100.0); VITAMIN B12 LEVEL 490 PG/ML
[2019-04-14 17:47] LABS: BASO # 0.1 10^3/uL (0.0-0.2); BASO % 2.3 % (0.0-1.0); EOS # 0.4 10^3/uL (0.0-0.5); EOS % 9.4 % (0.0-3.0); HEMATOCRIT 37.1 % (42.0-52.0); HEMOGLOBIN 11.9 g/dl (13.5-17.5); LYMPH # 1.3 10^3/uL (1.5-5.0); LYMPH % 33.9 % (24.0-44.0); MEAN CORPUSCULAR HEMOGLOBIN 26.5 pg (27.0-33.0); MEAN CORPUSCULAR HGB CONC 32.1 g/dl (32.0-36.5); MEAN CORPUSCULAR VOLUME 82.6 fl (80.0-96.0); MONO # 0.4 10^3/uL (0.0-0.8); MONO % 9.1 % (0.0-5.0); NEUTROPHILS # 1.7 10^3/uL (1.5-8.5); PLATELET COUNT, AUTOMATED 347 10^3/uL (150-450); RED BLOOD COUNT 4.49 10^6/uL (4.30-6.10); WHITE BLOOD COUNT 3.8 10^3/uL (4.0-10.0)
[2019-04-14 18:02] LABS: HEMOGLOBIN A1c 9.5 %
[2019-04-14 18:30] LABS: CREATININE, URINE 98.4 MG/DL; MAU/CREAT RATIO 1107.7 MCG/MG (0.0-30.0)
== END ==
LOC: M SFHCCAPE 07:37
PROVIDERS: ATTEND Physician Assistant
DX: I10 Essential (primary) hypertension (principal); E78.5 Hyperlipidemia, unspecified; E11.9 Type 2 diabetes mellitus without complications; R53.83 Other fatigue; F10.10 Alcohol abuse, uncomplicated

== ENCOUNTER 2019-04-19 13:14 | Emergency (ER) | payer MEDICARE, MEDICAID ==
[2019-04-19] MEDS ORDERED: NS 1,000 ML IV SCH (13:52)
[2019-04-19 14:18] LABS: VENOUS BASE EXCESS -0.4 (-2.0-2.0); VENOUS HCO3 24.2 MEQ/L (23.0-27.0); VENOUS O2 SATURATION 98.7 % (60.0-80.0); VENOUS PARTIAL PRESSURE CO2 39.4 mmHg (38.0-50.0); VENOUS PARTIAL PRESSURE O2 138.2 mmHg (30.0-50.0); VENOUS PH 7.406 UNITS (7.330-7.430); VENOUS STANDARD HCO3 24.2 MEQ/L; VENOUS TOTAL CO2 25.4 MEQ/L (24.0-28.0)
[2019-04-19 14:21] LABS: BASO # 0.1 10^3/uL (0.0-0.2); BASO % 0.8 % (0.0-1.0); EOS # 0.2 10^3/uL (0.0-0.5); EOS % 2.5 % (0.0-3.0); HEMATOCRIT 34.6 % (42.0-52.0); HEMOGLOBIN 11.4 g/dl (13.5-17.5); LYMPH # 1.4 10^3/uL (1.5-5.0); LYMPH % 21.2 % (24.0-44.0); MEAN CORPUSCULAR HEMOGLOBIN 26.9 pg (27.0-33.0); MEAN CORPUSCULAR HGB CONC 32.9 g/dl (32.0-36.5); MEAN CORPUSCULAR VOLUME 81.6 fl (80.0-96.0); MONO # 0.4 10^3/uL (0.0-0.8); MONO % 5.9 % (0.0-5.0); NEUTROPHILS # 4.5 10^3/uL (1.5-8.5); NEUTROPHILS % 69.3 % (36.0-66.0); PLATELET COUNT, AUTOMATED 286 10^3/uL (150-450); RED BLOOD COUNT 4.24 10^6/uL (4.30-6.10); WHITE BLOOD COUNT 6.5 10^3/uL (4.0-10.0)
[2019-04-19 14:49] LABS: AMPHETAMINES LEVEL URINE NEGATIVE (NEGATIVE); BARBITURATES URINE NEGATIVE (NEGATIVE); BENZODIAZEPINES URINE NEGATIVE (NEGATIVE); CANNABINOIDS URINE NEGATIVE (NEGATIVE); COCAINE METABOLITE URINE NEGATIVE (NEGATIVE); METHADONE URINE NEGATIVE (NEGATIVE); OPIATES URINE NEGATIVE (NEGATIVE); PHENCYCLIDINE URINE NEGATIVE (NEGATIVE)
[2019-04-19] MEDS ORDERED: NS 1,000 ML IV ONE ×2 (15:00→16:00)
[2019-04-19 15:01] LABS: ACETAMINOPHEN LEVEL < 2.0 UG/ML (10.0-30.0); ALBUMIN 3.5 GM/DL (3.2-5.2); ALT/SGPT 26 U/L (12-78); BILIRUBIN,DIRECT 0.1 MG/DL (0.0-0.2); BILIRUBIN,TOTAL 0.5 MG/DL (0.2-1.0); CPK CREATINE PHOSPHOKINASE 116 U/L (39-308); SALICYLATE LEVEL 4.7 MG/DL (5.0-30.0); THYROID STIMULATING HORMONE 0.775 uIU/ML (0.358-3.740)
[2019-04-19] MEDS ORDERED: HumuLIN R (REGULAR) INSULIN (NovoLIN R) **100U/ML** PER UNIT SC STA (16:35)
[2019-04-19 17:54] VITALS: BP 136/77
--- NOTE | 2019-04-19 21:01 | ECGEPIP ---
[facility] - ED Test Date: 2019-04-19 Pat Name: GIFTY BOB Department: Room: - Gender: Male Station Examiner: BRIAN : 1970 Requested By: Dorota Gaitna Order Number: [id number] Reading MD: Dorota Gaitan Measurements Intervals [place] Rate: 107 P: 56 [place]: 135 QRS: 6 QRSD: 90 T: 40 QT: 334 QTc: 447 Interpretive Statements SINUS TACHYCARDIA INFERIOR MYOCARDIAL INFARCTION, PROBABLY OLD [facility] SIMILAR 03/29/19 Electronically Signed on 04-19-2019 21:00:38 EDT by Dorota Gaitan
== END 2019-04-19 18:02 | disposition home or self-care (01) ==
LOC: M ED 13:14
DX: F10.10 Alcohol abuse, uncomplicated (principal); E11.65 Type 2 diabetes mellitus with hyperglycemia; R00.0 Tachycardia, unspecified; I25.2 Old myocardial infarction; I10 Essential (primary) hypertension; F32.9 Major depressive disorder, single episode, unspecified; Z86.73 Personal history of transient ischemic attack (TIA), and cerebral infarction without residual deficits; Z91.5 Personal history of self-harm; Z98.84 Bariatric surgery status; F17.200 Nicotine dependence, unspecified, uncomplicated; Z79.82 Long term (current) use of aspirin; Z79.4 Long term (current) use of insulin; Z79.899 Other long term (current) drug therapy; Z88.8 Allergy status to other drugs, medicaments and biological substances; Z88.5 Allergy status to narcotic agent
CPT/HCPCS: 80047; 80076; 80307; 82550; 82803; 84443; 85025; 93005; 93041; 96360; 96361; 99285; G0480

== ENCOUNTER → 2019-05-31 | Outpatient (CLI) | payer MEDICARE, MEDICAID | LOC: M OUTALCOH 08:00 | PROVIDERS: ATTEND Psychiatry & Neurology Psychiatry | DX: F10.20 Alcohol dependence, uncomplicated (principal) ==

== ENCOUNTER 2019-06-11 08:11 | Outpatient (RCR) | payer MEDICARE, MEDICAID | END 2019-06-19 | LOC: M OUTALCOH 08:11 | PROVIDERS: ATTEND Psychiatry & Neurology Psychiatry | DX: F10.20 Alcohol dependence, uncomplicated (principal); F17.200 Nicotine dependence, unspecified, uncomplicated ==

== ENCOUNTER 2019-07-12 14:00 | Outpatient (RCR) | payer MEDICARE, MEDICAID | END 2019-07-20 | LOC: M OUTALCOH 14:00 | PROVIDERS: ATTEND Psychiatry & Neurology Psychiatry | DX: F10.20 Alcohol dependence, uncomplicated (principal); F17.200 Nicotine dependence, unspecified, uncomplicated ==

== ENCOUNTER 2019-07-24 19:14 | Inpatient (IN) | payer MEDICARE, MEDICAID ==
[~2019-07-24] VITALS: Ht 177.8 cm; Wt 91.5 kg
[~2019-07-24 19:14] MED LIST changes: +NORTRIPTYLINE 25 MG CAP PO SCH
[2019-07-24] MEDS ORDERED: DEXTROSE 50% 50 ML SYRINGE IV STA (19:17)
[2019-07-24 19:34] LABS: BASO # 0.1 10^3/uL (0.0-0.2); BASO % 1.2 % (0.0-1.0); EOS # 0.6 10^3/uL (0.0-0.5); EOS % 6.2 % (0.0-3.0); HEMATOCRIT 37.7 % (42.0-52.0); HEMOGLOBIN 11.7 g/dl (13.5-17.5); LYMPH # 2.3 10^3/uL (1.5-5.0); LYMPH % 25.7 % (24.0-44.0); MEAN CORPUSCULAR HEMOGLOBIN 25.9 pg (27.0-33.0); MEAN CORPUSCULAR VOLUME 83.4 fl (80.0-96.0); MONO # 0.8 10^3/uL (0.0-0.8); MONO % 8.7 % (0.0-5.0); NEUTROPHILS # 5.3 10^3/uL (1.5-8.5); PLATELET COUNT, AUTOMATED 363 10^3/uL (150-450); RED BLOOD COUNT 4.52 10^6/uL (4.30-6.10); WHITE BLOOD COUNT 9.1 10^3/uL (4.0-10.0)
[2019-07-24] MEDS ORDERED: B-1100TA2 PO (19:49)
[2019-07-24] MEDS ORDERED: QUET1TAB7 (19:49)
[2019-07-24] MEDS ORDERED: LAMO25TA4 (19:49)
[2019-07-24] MEDS ORDERED: ACAM0.05 (19:49)
[2019-07-24] MEDS ORDERED: NORT50CA (19:49)
[2019-07-24] MEDS ORDERED: PANT40TA3 PO (19:49)
[2019-07-24] MEDS ORDERED: D10W/0.45% SODIUM CHLORIDE 1,000 ML IV SCH ×2 (20:00→21:00)
[2019-07-24 20:17] LABS: ALBUMIN 3.8 GM/DL (3.2-5.2); ALT/SGPT 31 U/L (12-78); BILIRUBIN,DIRECT < 0.1 MG/DL (0.0-0.2); BILIRUBIN,TOTAL 0.2 MG/DL (0.2-1.0); BLOOD UREA NITROGEN 14 MG/DL (7-18); CALCIUM LEVEL 8.2 MG/DL (8.5-10.1); CARBON DIOXIDE LEVEL 22 MEQ/L (21-32); CHLORIDE LEVEL 109 MEQ/L (98-107); CK-MB VALUE MASS 4.4 NG/ML (<3.6); CPK CREATINE PHOSPHOKINASE 307 U/L (39-308); CREATININE FOR GFR 1.28 MG/DL (0.70-1.30); ETHYL ALCOHOL (ETHANOL) < 0.003 % (0.000-0.010); GLOMERULAR FILTRATION RATE > 60.0 (>60); GLUCOSE, FASTING 36 MG/DL (70-100); LIPASE 67 U/L (73-393); MB/CK RELATIVE INDEX 1.43 (< OR =4); POTASSIUM SERUM 4.1 MEQ/L (3.5-5.1); SODIUM LEVEL 140 MEQ/L (136-145); TOTAL PROTEIN 7.1 GM/DL (6.4-8.2); TROPONIN I < 0.02 NG/ML (< 0.10)
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
[2019-07-24] MEDS ORDERED: ACETAMINOPHEN TAB 650MG DOSE (2X325MG) PO PRN (21:00)
[2019-07-24] MEDS ORDERED: LORazepam 2 MG TAB PO PRN (21:00)
[2019-07-24] MEDS ORDERED: MOM 30ML SUSPENSION UDC PO PRN (21:00)
[2019-07-24] MEDS ORDERED: MAALOX 30 ML SUSP *UDC PO PRN (21:00)
[2019-07-24 21:35] LABS: HEMOGLOBIN A1c 10.8 %
[2019-07-24] MEDS ORDERED: MIRT1TAB15 PO (22:03)
[2019-07-24] MEDS ORDERED: ABIL1TAB12 PO (22:03)
[2019-07-24] MEDS ORDERED: VITA30004 PO (22:03)
[2019-07-24] MEDS ORDERED: NORT25CA2 PO (22:03)
[2019-07-24] MEDS ORDERED: INSUDET SC (22:03)
[2019-07-24] MEDS ORDERED: VITA1CAP25 PO (22:03)
[2019-07-24 23:40] VITALS: BP 135/66
[2019-07-24] MEDS: THIAMINE 100 MG TAB PO SCH (23:57)
[2019-07-24] MEDS: ACAMPROSATE CALCIUM 333 MG TABLET (CAMPRAL) PO SCH (23:58)
[2019-07-24] MEDS: DOCUSATE SODIUM 100 MG CAP PO SCH (23:59)
[2019-07-25] VITALS (9 sets, daily range): BP systolic 129–148; BP diastolic 65–79
[2019-07-25] MEDS ORDERED: PILL CUTTER 1 EACH XX PRN (00:30)
[2019-07-25] MEDS ORDERED: D10W/0.45% SODIUM CHLORIDE 1,000 ML IV SCH (01:00)
[2019-07-25] MEDS ORDERED: NS 1,000 ML IV SCH (01:00)
[2019-07-25 05:47] LABS: HEMATOCRIT 34.9 % (42.0-52.0); HEMOGLOBIN 10.6 g/dl (13.5-17.5); MEAN CORPUSCULAR HEMOGLOBIN 25.5 pg (27.0-33.0); MEAN CORPUSCULAR HGB CONC 30.4 g/dl (32.0-36.5); MEAN CORPUSCULAR VOLUME 84.1 fl (80.0-96.0); PLATELET COUNT, AUTOMATED 269 10^3/uL (150-450); RED BLOOD COUNT 4.15 10^6/uL (4.30-6.10); WHITE BLOOD COUNT 5.3 10^3/uL (4.0-10.0)
[2019-07-25 06:08] LABS: BLOOD UREA NITROGEN 10 MG/DL (7-18); CALCIUM LEVEL 7.8 MG/DL (8.5-10.1); CARBON DIOXIDE LEVEL 25 MEQ/L (21-32); CHLORIDE LEVEL 109 MEQ/L (98-107); CREATININE FOR GFR 0.93 MG/DL (0.70-1.30); GLOMERULAR FILTRATION RATE > 60.0 (>60); GLUCOSE, FASTING 168 MG/DL (70-100); MAGNESIUM LEVEL 2.4 MG/DL (1.8-2.4); SODIUM LEVEL 140 MEQ/L (136-145)
[2019-07-25] MEDS: DOCUSATE SODIUM 100 MG CAP PO SCH (08:46)
[2019-07-25] MEDS: ACAMPROSATE CALCIUM 333 MG TABLET (CAMPRAL) PO SCH (08:46)
[2019-07-25] MEDS: THIAMINE 100 MG TAB PO SCH (08:46)
[2019-07-25] MEDS ORDERED: lamoTRIgine 25 MG TAB PO SCH (09:00)
[2019-07-25] MEDS ORDERED: MULTIVITAMINS/MINERALS THERAP 1 TAB PO SCH (09:00)
[2019-07-25] MEDS ORDERED: ENOXAPARIN 40 MG/0.4 ML SYRINGE (J1650) SC SCH (09:00)
[2019-07-25] MEDS ORDERED: ASPIRIN 325 MG TAB PO SCH (09:00)
[2019-07-25] MEDS ORDERED: PANTOPRAZOLE 40MG TAB (PROTONIX) PO SCH (09:00)
[2019-07-25] MEDS ORDERED: FOLIC ACID 1 MG TAB PO SCH (09:00)
[2019-07-25] MEDS ORDERED: IRBESARTAN 150 MG TAB PO SCH (09:00)
[2019-07-25] MEDS ORDERED: ATORVASTATIN 20 MG TAB PO SCH (09:00)
[2019-07-25] MEDS ORDERED: ARIPiprazole 15 MG TAB (AbiLIFY) PO SCH (09:00)
[2019-07-25] MEDS ORDERED: GLUCAGON FOR INJ 1 MG VIAL (J1610) SC PRN (10:00)
[2019-07-25] MEDS ORDERED: DEXTROSE 50% 50 ML SYRINGE IV PRN (10:00)
[2019-07-25] MEDS ORDERED: GLUCOSE 4 GM CHEW TABLET PO PRN (10:00)
[2019-07-25] MEDS ORDERED: HumaLOG INSULIN (NovoLOG) PER UNIT SC SCH ×2 (12:00→21:00)
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
--- NOTE | 2019-07-26 08:28 | DSES ---
DATE OF ADMISSION: 07/24/2019 DATE OF DISCHARGE: 07/25/2019 PRINCIPAL DIAGNOSIS: Hypoglycemic event. SECONDARY DIAGNOSES: 1. Diabetic foot ulcer left foot. 2. History of noncompliance. 3. History of intentional overdose with insulin. HISTORY: Del Rust was admitted with hypoglycemia. Details are in history and physical from admission. HOSPITAL COURSE: He was admitted to progressive care unit (PCU). Blood sugars normalized and then became elevated. His IV fluid was changed, and he was started back on his insulin. He was seen by psychiatry. Discussed the case with Dr. Hoang after evaluation, and she did not feel that he took an intentional overdose of insulin nor was he particularly increased risk of suicide and felt he could be discharged home. His blood sugars were still not regulated, and I recommended he stay in the hospital until 07/26/2019. He refused to do this and signed out against medical advice on 07/25/2019. He was advised to continue the same regimen he was taking as an outpatient and followup with his primary care provider as well as with Dr. Romero for his diabetic foot ulcer.
== END 2019-07-25 16:43 | disposition left against medical advice (07) | DRG 638 ==
LOC: M ED 19:14 → M ED INP 20:39 → ENRESERVDT 23:02 → ENRESERVTM 23:02 → M PCU 23:40
PROVIDERS: ADMIT Internal Medicine; ATTEND Family Medicine
DX: E11.649 Type 2 diabetes mellitus with hypoglycemia without coma (principal); G93.49 Other encephalopathy; E11.622 Type 2 diabetes mellitus with other skin ulcer; Z91.19 Patient's noncompliance with other medical treatment and regimen; I10 Essential (primary) hypertension; F31.9 Bipolar disorder, unspecified; F41.1 Generalized anxiety disorder; E78.5 Hyperlipidemia, unspecified; I25.10 Atherosclerotic heart disease of native coronary artery without angina pectoris; K21.9 Gastro-esophageal reflux disease without esophagitis; G25.81 Restless legs syndrome; Z79.4 Long term (current) use of insulin; F10.20 Alcohol dependence, uncomplicated; Z79.899 Other long term (current) drug therapy; Z79.82 Long term (current) use of aspirin; Z88.5 Allergy status to narcotic agent; Z88.8 Allergy status to other drugs, medicaments and biological substances; D50.9 Iron deficiency anemia, unspecified

== ENCOUNTER 2019-08-20 21:06 | Emergency (ER) | payer MEDICARE, MEDICAID ==
[~2019-08-20] VITALS: Ht 177.8 cm; Wt 81.8 kg
[~2019-08-20 21:06] MED LIST changes: +ACAM0.05; +B-1100TA2 PO; -LORA1TAB12 PO; +LORA1TAB4 PO; -MECL-68 PO; +MECL1TAB31 PO; +MIRT1TAB15 PO; +NORT25CA2 PO; +NORT50CA; -NORTRIPTYLINE 25 MG CAP PO SCH; +QUET1TAB7; +VITA1CAP25 PO
[2019-08-20 22:59] LABS: BASO # 0.1 10^3/uL (0.0-0.2); BASO % 0.8 % (0.0-1.0); EOS # 0.3 10^3/uL (0.0-0.5); EOS % 5.2 % (0.0-3.0); HEMATOCRIT 33.4 % (42.0-52.0); HEMOGLOBIN 10.4 g/dl (13.5-17.5); LYMPH # 1.6 10^3/uL (1.5-5.0); LYMPH % 25.3 % (24.0-44.0); MEAN CORPUSCULAR HEMOGLOBIN 25.7 pg (27.0-33.0); MEAN CORPUSCULAR HGB CONC 31.1 g/dl (32.0-36.5); MEAN CORPUSCULAR VOLUME 82.5 fl (80.0-96.0); MONO # 0.8 10^3/uL (0.0-0.8); MONO % 11.8 % (0.0-5.0); NEUTROPHILS # 3.6 10^3/uL (1.5-8.5); NEUTROPHILS % 56.7 % (36.0-66.0); PLATELET COUNT, AUTOMATED 319 10^3/uL (150-450); RED BLOOD COUNT 4.05 10^6/uL (4.30-6.10); WHITE BLOOD COUNT 6.3 10^3/uL (4.0-10.0)
[2019-08-20] MEDS ORDERED: INSUDET SC (23:07)
[2019-08-20] MEDS ORDERED: ABIL20TA5 PO (23:08)
[2019-08-20] MEDS ORDERED: LAMO100T3 PO (23:08)
[2019-08-20 23:26] LABS: ALT/SGPT 20 U/L (12-78); BILIRUBIN,DIRECT 0.1 MG/DL (0.0-0.2); BILIRUBIN,TOTAL 0.2 MG/DL (0.2-1.0); BLOOD UREA NITROGEN 13 MG/DL (7-18); CALCIUM LEVEL 8.5 MG/DL (8.5-10.1); CARBON DIOXIDE LEVEL 28 MEQ/L (21-32); CHLORIDE LEVEL 102 MEQ/L (98-107); CREATININE FOR GFR 0.88 MG/DL (0.70-1.30); GLOMERULAR FILTRATION RATE > 60.0 (>60); GLUCOSE, FASTING 60 MG/DL (70-100); POTASSIUM SERUM 3.8 MEQ/L (3.5-5.1); SODIUM LEVEL 140 MEQ/L (136-145); TOTAL PROTEIN 6.2 GM/DL (6.4-8.2)
[2019-08-21] MEDS ORDERED: BACT800T5 PO (00:06)
[2019-08-21 00:41] VITALS: BP 135/69
[2019-08-21] MEDS ORDERED: BACTRIM 160MG/800MG DS TAB PO ONE (01:00)
== END 2019-08-21 00:48 | disposition home or self-care (01) ==
LOC: M ED 21:06
DX: L03.116 Cellulitis of left lower limb (principal); E10.9 Type 1 diabetes mellitus without complications; I10 Essential (primary) hypertension; E78.5 Hyperlipidemia, unspecified; R56.9 Unspecified convulsions; R42 Dizziness and giddiness; G47.33 Obstructive sleep apnea (adult) (pediatric); G89.29 Other chronic pain; M54.5 Low back pain; H54.8 Legal blindness, as defined in USA; F19.10 Other psychoactive substance abuse, uncomplicated; F31.9 Bipolar disorder, unspecified; F17.210 Nicotine dependence, cigarettes, uncomplicated; Z88.5 Allergy status to narcotic agent; Z88.8 Allergy status to other drugs, medicaments and biological substances; Z79.1 Long term (current) use of non-steroidal anti-inflammatories (NSAID); Z79.4 Long term (current) use of insulin; Z79.891 Long term (current) use of opiate analgesic; Z79.899 Other long term (current) drug therapy

== ENCOUNTER 2019-08-21 22:16 | Emergency (ER) | payer MEDICARE, MEDICAID ==
[~2019-08-21] VITALS: Ht 177.8 cm; Wt 84.1 kg
[~2019-08-21 22:16] MED LIST changes: +ABIL20TA5 PO; +LAMO100T3 PO
[2019-08-21 23:19] LABS: BASO # 0.1 10^3/uL (0.0-0.2); BASO % 1.3 % (0.0-1.0); EOS # 0.5 10^3/uL (0.0-0.5); EOS % 10.7 % (0.0-3.0); HEMATOCRIT 36.8 % (42.0-52.0); HEMOGLOBIN 11.3 g/dl (13.5-17.5); LYMPH # 1.6 10^3/uL (1.5-5.0); LYMPH % 33.3 % (24.0-44.0); MEAN CORPUSCULAR HEMOGLOBIN 25.4 pg (27.0-33.0); MEAN CORPUSCULAR HGB CONC 30.7 g/dl (32.0-36.5); MEAN CORPUSCULAR VOLUME 82.7 fl (80.0-96.0); MONO # 0.5 10^3/uL (0.0-0.8); MONO % 11.3 % (0.0-5.0); NEUTROPHILS % 43.2 % (36.0-66.0); PLATELET COUNT, AUTOMATED 355 10^3/uL (150-450); RED BLOOD COUNT 4.45 10^6/uL (4.30-6.10); WHITE BLOOD COUNT 4.7 10^3/uL (4.0-10.0)
[2019-08-21 23:56] LABS: BLOOD UREA NITROGEN 14 MG/DL (7-18); CALCIUM LEVEL 9.1 MG/DL (8.5-10.1); CARBON DIOXIDE LEVEL 30 MEQ/L (21-32); CHLORIDE LEVEL 106 MEQ/L (98-107); CREATININE FOR GFR 1.02 MG/DL (0.70-1.30); GLOMERULAR FILTRATION RATE > 60.0 (>60); GLUCOSE, FASTING 60 MG/DL (70-100); POTASSIUM SERUM 4.7 MEQ/L (3.5-5.1); SODIUM LEVEL 144 MEQ/L (136-145)
[2019-08-22] VITALS: BP 129/71
--- NOTE | 2019-08-22 08:07 | REP ---
Left foot two views AP and lateral projections: Comparison is a 09/05/2014. There is soft tissue swelling along the plantar surface of the MTP articulations. There are no lytic, blastic or destructive skeletal changes. Joint spaces are unremarkable. No calcifications or foreign bodies. No fracture or dislocation. Impression: Focal soft tissue swelling along the plantar surface of the MTP articulations. Electronically Signed by Fito Comer MD 08/22/2019 07:58 A
== END 2019-08-22 00:20 | disposition home or self-care (01) ==
LOC: M ED 22:16
DX: E16.2 Hypoglycemia, unspecified (principal); L97.529 Non-pressure chronic ulcer of other part of left foot with unspecified severity; M79.89 Other specified soft tissue disorders; F10.20 Alcohol dependence, uncomplicated; F17.210 Nicotine dependence, cigarettes, uncomplicated; Z88.8 Allergy status to other drugs, medicaments and biological substances; Z88.5 Allergy status to narcotic agent; Z79.02 Long term (current) use of antithrombotics/antiplatelets; Z79.4 Long term (current) use of insulin; Z79.52 Long term (current) use of systemic steroids; Z79.899 Other long term (current) drug therapy

== ENCOUNTER 2019-09-04 10:13 | Emergency (ER) | payer MEDICARE, MEDICAID ==
[~2019-09-04] VITALS: Ht 177.8 cm; Wt 85.0 kg
[~2019-09-04 10:13] MED LIST changes: -IRBE150T12 PO; +IRBE150T7 PO; +IRBE75TA4 PO; -IRBE75TA5 PO; +QUET100T2 PO; -QUET1TAB8 PO; -ROPI1TAB PO; +ROPI1TAB3 PO
[2019-09-04 10:54] LABS: BASO # 0.1 10^3/uL (0.0-0.2); BASO % 0.9 % (0.0-1.0); EOS # 0.1 10^3/uL (0.0-0.5); EOS % 0.7 % (0.0-3.0); HEMATOCRIT 35.6 % (42.0-52.0); HEMOGLOBIN 11.1 g/dl (13.5-17.5); LYMPH # 0.7 10^3/uL (1.5-5.0); LYMPH % 10.2 % (24.0-44.0); MEAN CORPUSCULAR HEMOGLOBIN 26.2 pg (27.0-33.0); MEAN CORPUSCULAR HGB CONC 31.2 g/dl (32.0-36.5); MONO # 0.3 10^3/uL (0.0-0.8); MONO % 3.9 % (0.0-5.0); NEUTROPHILS # 5.7 10^3/uL (1.5-8.5); NEUTROPHILS % 84.2 % (36.0-66.0); PLATELET COUNT, AUTOMATED 421 10^3/uL (150-450); RED BLOOD COUNT 4.24 10^6/uL (4.30-6.10); WHITE BLOOD COUNT 6.7 10^3/uL (4.0-10.0)
--- NOTE | 2019-09-04 10:56 | REP ---
Clinical: Chest pain . Comparison: 03/12/2019 . Findings: The mediastinum and cardiac silhouette are stable and within normal limits for portable technique. The lung garner are clear without acute consolidation, effusion, or pneumothorax. None acute left rib fracture again identified. Impression: No acute cardiopulmonary process appreciated. Electronically Signed by Kashmir Schmid MD 09/04/2019 10:48 A
[2019-09-04] MEDS ORDERED: NS 1,000 ML IV ONE ×3 (11:00→14:15)
[2019-09-04] MEDS ORDERED: ONDANSETRON 4MG/2ML VIAL (J2405) IV ONE (11:00)
[2019-09-04] MEDS ORDERED: QUET1TAB7 PO (11:07)
[2019-09-04] MEDS ORDERED: ESCI10TA2 PO (11:07)
[2019-09-04] MEDS ORDERED: QUET5TAB PO (11:07)
[2019-09-04] MEDS ORDERED: VITA30004 PO (11:07)
[2019-09-04 11:09] LABS: VENOUS BASE EXCESS -1.1 (-2.0-2.0); VENOUS HCO3 24.5 MEQ/L (23.0-27.0); VENOUS O2 SATURATION 91.9 % (60.0-80.0); VENOUS PARTIAL PRESSURE CO2 44.7 mmHg (38.0-50.0); VENOUS PH 7.357 UNITS (7.330-7.430); VENOUS STANDARD HCO3 23.4 MEQ/L; VENOUS TOTAL CO2 25.9 MEQ/L (24.0-28.0)
[2019-09-04 11:15] LABS: INR 0.97; PARTIAL THROMBOPLASTIN TIME 23.4 SECONDS (25.0-38.4); PROTHROMBIN TIME 12.5 SECONDS (11.8-14.0)
[2019-09-04 11:17] LABS: ALBUMIN 3.4 GM/DL (3.2-5.2); ALT/SGPT 29 U/L (12-78); BILIRUBIN,DIRECT 0.1 MG/DL (0.0-0.2); BILIRUBIN,TOTAL 0.4 MG/DL (0.2-1.0); BLOOD UREA NITROGEN 20 MG/DL (7-18); CALCIUM LEVEL 8.8 MG/DL (8.5-10.1); CARBON DIOXIDE LEVEL 24 MEQ/L (21-32); CHLORIDE LEVEL 100 MEQ/L (98-107); CK-MB VALUE MASS 2.5 NG/ML (<3.6); CPK CREATINE PHOSPHOKINASE 106 U/L (39-308); CREATININE FOR GFR 1.38 MG/DL (0.70-1.30); ETHYL ALCOHOL (ETHANOL) < 0.003 % (0.000-0.010); GLOMERULAR FILTRATION RATE 58.3 (>60); GLUCOSE, FASTING 566 MG/DL (70-100); LIPASE 66 U/L (73-393); MB/CK RELATIVE INDEX 2.36 (< OR =4); POTASSIUM SERUM 4.5 MEQ/L (3.5-5.1); SODIUM LEVEL 136 MEQ/L (136-145); TOTAL PROTEIN 6.9 GM/DL (6.4-8.2); TROPONIN I < 0.02 NG/ML (< 0.10)
[2019-09-04 11:22] LABS: HEMOGLOBIN A1c 10.6 %
[2019-09-04] MEDS ORDERED: HumuLIN R (REGULAR) INSULIN (NovoLIN R) **100U/ML** PER UNIT IV ONE (12:15)
[2019-09-04] MEDS ORDERED: ISOVUE-370 76% 100ML VIAL (Q9967) As Ordered ONE (12:45)
--- NOTE | 2019-09-04 13:28 | REP ---
Clinical: Acute chest pain . Technique: Axial contrast enhanced images from the thoracic inlet to the upper abdomen using 75 ml Isovue 370 intravenous contrast material with multiplanar re-formations. Findings: Satisfactory enhancement of the pulmonary vasculature is achieved and no filling defects are identified to suggest pulmonary embolus. Further evaluation of the mediastinum demonstrates normal thoracic aorta, heart and pericardium. The bilateral lung garner demonstrate minimal posterior basilar dependent changes without consolidation, pleural effusion or pneumothorax. Tracheobronchial tree is patent. No nodule or mass lesion is identified. No adenopathy noted. Surrounding musculoskeletal structures intact Impression: No evidence for pulmonary embolus. No acute mediastinal or pleural parenchymal process. Electronically Signed by Kashmir Schmid MD 09/04/2019 01:20 P
[2019-09-04 14:02] LABS: AMPHETAMINES LEVEL URINE NEGATIVE (NEGATIVE); BARBITURATES URINE NEGATIVE (NEGATIVE); BENZODIAZEPINES URINE NEGATIVE (NEGATIVE); CANNABINOIDS URINE NEGATIVE (NEGATIVE); COCAINE METABOLITE URINE NEGATIVE (NEGATIVE); METHADONE URINE NEGATIVE (NEGATIVE); OPIATES URINE NEGATIVE (NEGATIVE); PHENCYCLIDINE URINE NEGATIVE (NEGATIVE)
[2019-09-04 15:52] LABS: CK-MB VALUE MASS 1.9 NG/ML (<3.6); CPK CREATINE PHOSPHOKINASE 78 U/L (39-308); MB/CK RELATIVE INDEX 2.44 (< OR =4); TROPONIN I < 0.02 NG/ML (< 0.10)
[2019-09-04 16:36] LABS: FREE T4 0.91 NG/DL (0.76-1.46); THYROID STIMULATING HORMONE 0.854 uIU/ML (0.358-3.740)
[2019-09-04 17:00] VITALS: BP 121/59
--- NOTE | 2019-09-05 05:38 | ECGEPIP ---
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
--- NOTE | 2019-09-05 05:44 | ECGEPIP ---
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
== END 2019-09-04 17:20 | disposition home or self-care (01) ==
LOC: M ED 10:13
DX: R07.9 Chest pain, unspecified (principal); E10.65 Type 1 diabetes mellitus with hyperglycemia; R00.0 Tachycardia, unspecified; R11.2 Nausea with vomiting, unspecified; I25.2 Old myocardial infarction; I11.0 Hypertensive heart disease with heart failure; E78.5 Hyperlipidemia, unspecified; K21.9 Gastro-esophageal reflux disease without esophagitis; G25.81 Restless legs syndrome; F31.9 Bipolar disorder, unspecified; F10.20 Alcohol dependence, uncomplicated; Z88.5 Allergy status to narcotic agent; Z88.8 Allergy status to other drugs, medicaments and biological substances; Z79.82 Long term (current) use of aspirin; Z79.84 Long term (current) use of oral hypoglycemic drugs; Z79.899 Other long term (current) drug therapy
CPT/HCPCS: 71045; 71275; 80048; 80076; 80307; 82550; 82553; 82803; 83036; 83690; 84439; 84443; 84484; 85025; 85610; 85730; 93005; 93041; 94760; 96361; 96374; 96375; 99285; G0480; J2405; Q9967

== ENCOUNTER 2019-09-08 22:15 | Emergency (ER) | payer MEDICARE, MEDICAID ==
[~2019-09-08] VITALS: Ht 177.8 cm; Wt 84.1 kg
[~2019-09-08 22:15] MED LIST changes: +ESCI10TA2 PO; +QUET1TAB7 PO; +QUET5TAB PO
[2019-09-08] MEDS ORDERED: PERCOCET 5MG/325MG TAB PO ONE (22:45)
[2019-09-08] MEDS: ONDANSETRON 4 MG ORAL DISINTEGRATING TAB (Q0162 PER 1MG) PO ONE ×2 (22:50→22:52)
[2019-09-08 23:05] LABS: BASO % 0.5 % (0.0-1.0); EOS # 0.4 10^3/uL (0.0-0.5); EOS % 6.6 % (0.0-3.0); HEMATOCRIT 31.1 % (42.0-52.0); HEMOGLOBIN 9.9 g/dl (13.5-17.5); LYMPH # 1.9 10^3/uL (1.5-5.0); LYMPH % 30.2 % (24.0-44.0); MEAN CORPUSCULAR HEMOGLOBIN 26.3 pg (27.0-33.0); MEAN CORPUSCULAR HGB CONC 31.8 g/dl (32.0-36.5); MEAN CORPUSCULAR VOLUME 82.7 fl (80.0-96.0); MONO # 0.6 10^3/uL (0.0-0.8); MONO % 9.6 % (0.0-5.0); NEUTROPHILS # 3.3 10^3/uL (1.5-8.5); NEUTROPHILS % 52.8 % (36.0-66.0); PLATELET COUNT, AUTOMATED 315 10^3/uL (150-450); RED BLOOD COUNT 3.76 10^6/uL (4.30-6.10); WHITE BLOOD COUNT 6.3 10^3/uL (4.0-10.0)
[2019-09-08 23:26] LABS: BLOOD UREA NITROGEN 18 MG/DL (7-18); C REACTIVE PROTEIN QUANTITATIV 3.78 MG/DL (0.00-0.30); CALCIUM LEVEL 8.5 MG/DL (8.5-10.1); CARBON DIOXIDE LEVEL 30 MEQ/L (21-32); CHLORIDE LEVEL 104 MEQ/L (98-107); GLOMERULAR FILTRATION RATE > 60.0 (>60); GLUCOSE, FASTING 173 MG/DL (70-100); POTASSIUM SERUM 3.9 MEQ/L (3.5-5.1); SODIUM LEVEL 137 MEQ/L (136-145)
[2019-09-08 23:40] LABS: ERYTHROCYTE SEDIMENTATION RATE 49 mm/hr (0-15)
[2019-09-09] MEDS ORDERED: CIPR-249 PO (01:12)
[2019-09-09] MEDS ORDERED: KEFL500C17 PO (01:12)
[2019-09-09] MEDS ORDERED: PERC5TAB12 PO (01:14)
[2019-09-09] MEDS ORDERED: CIPROFLOXACIN 500 MG TAB PO ONE (01:15)
[2019-09-09] MEDS ORDERED: CEPHALEXIN 500 MG CAP PO ONE (01:15)
[2019-09-09 01:22] VITALS: BP 127/79
--- NOTE | 2019-09-09 08:31 | REP ---
Left foot series: Two views. History: Osteomyelitis evaluation. Comparison study: August 21, 2019. Findings: There is soft-tissue swelling and excavation and irregularity in the soft tissues at the ball of the foot along the plantar aspect consistent with soft tissue ulceration. There is some vascular calcification above the ankle and in the mid foot. There is old post-traumatic deformity of the distal tibia and fibula. There is a well corticated chronic erosion along the medial aspect of the distal end of the proximal phalanx of the great toe. This is unchanged. No acute erosive changes seen. No soft tissue gas is seen apart from the presumed ulcer at the ball of the foot. Impression: No radiographic evidence of acute osteomyelitis. Soft tissue swelling and soft tissue ulcer at the plantar aspect of the forefoot. Electronically Signed by Armond Mazariegos MD 09/09/2019 10:28 A
== END 2019-09-09 01:42 | disposition home or self-care (01) ==
LOC: M ED 22:15
DX: E10.621 Type 1 diabetes mellitus with foot ulcer (principal); I11.0 Hypertensive heart disease with heart failure; E78.5 Hyperlipidemia, unspecified; K21.9 Gastro-esophageal reflux disease without esophagitis; G25.81 Restless legs syndrome; G89.29 Other chronic pain; M54.5 Low back pain; F31.9 Bipolar disorder, unspecified; F10.20 Alcohol dependence, uncomplicated; F17.210 Nicotine dependence, cigarettes, uncomplicated; Z88.5 Allergy status to narcotic agent; Z88.8 Allergy status to other drugs, medicaments and biological substances; Z79.82 Long term (current) use of aspirin; Z79.84 Long term (current) use of oral hypoglycemic drugs; Z79.899 Other long term (current) drug therapy

== ENCOUNTER 2019-09-20 15:09 | Inpatient (IN) | payer MEDICARE, MEDICAID ==
[~2019-09-20] VITALS: Ht 177.8 cm; Wt 79.2 kg
[~2019-09-20 15:09] MED LIST changes: -ACAM0.05; +ACAM0.05 PO; +CIPR-249 PO; +PERC5TAB12 PO
[2019-09-20 16:13] LABS: BASO # 0.1 10^3/uL (0.0-0.2); BASO % 1.2 % (0.0-1.0); EOS # 0.5 10^3/uL (0.0-0.5); EOS % 8.3 % (0.0-3.0); HEMATOCRIT 30.3 % (42.0-52.0); HEMOGLOBIN 9.8 g/dl (13.5-17.5); LYMPH # 1.6 10^3/uL (1.5-5.0); LYMPH % 26.5 % (24.0-44.0); MEAN CORPUSCULAR HEMOGLOBIN 26.3 pg (27.0-33.0); MEAN CORPUSCULAR HGB CONC 32.3 g/dl (32.0-36.5); MEAN CORPUSCULAR VOLUME 81.5 fl (80.0-96.0); MONO # 0.4 10^3/uL (0.0-0.8); NEUTROPHILS # 3.5 10^3/uL (1.5-8.5); NEUTROPHILS % 57.8 % (36.0-66.0); PLATELET COUNT, AUTOMATED 379 10^3/uL (150-450); RED BLOOD COUNT 3.72 10^6/uL (4.30-6.10)
[2019-09-20 16:18] LABS: INR 0.95; PARTIAL THROMBOPLASTIN TIME 24.1 SECONDS (25.0-38.4); PROTHROMBIN TIME 12.4 SECONDS (11.8-14.0)
[2019-09-20] MEDS ORDERED: NORT50CA PO (16:23)
[2019-09-20 16:28] LABS: ALBUMIN 2.7 GM/DL (3.2-5.2); ALT/SGPT 182 U/L (12-78); AMYLASE 38 U/L (25-115); BILIRUBIN,DIRECT < 0.1 MG/DL (0.0-0.2); BILIRUBIN,TOTAL 0.2 MG/DL (0.2-1.0); BLOOD UREA NITROGEN 12 MG/DL (7-18); CALCIUM LEVEL 8.3 MG/DL (8.5-10.1); CARBON DIOXIDE LEVEL 27 MEQ/L (21-32); CHLORIDE LEVEL 108 MEQ/L (98-107); CREATININE FOR GFR 0.72 MG/DL (0.70-1.30); GLOMERULAR FILTRATION RATE > 60.0 (>60); GLUCOSE, FASTING 91 MG/DL (70-100); LIPASE 76 U/L (73-393); SODIUM LEVEL 141 MEQ/L (136-145); TOTAL PROTEIN 5.8 GM/DL (6.4-8.2)
[2019-09-20] MEDS ORDERED: NS 1,000 ML IV SCH (16:55)
[2019-09-20] MEDS ORDERED: MECLIZINE 25 MG TABLET PO ONE (17:00)
[2019-09-20] MEDS ORDERED: ONDANSETRON 4MG/2ML VIAL (J2405) IV ONE (17:00)
[2019-09-20] MEDS ORDERED: ISOVUE-370 76% 100ML VIAL (Q9967) As Ordered ONE (17:04)
[2019-09-20 17:16] LABS: CK-MB VALUE MASS 1.4 NG/ML (<3.6); CPK CREATINE PHOSPHOKINASE 92 U/L (39-308); MB/CK RELATIVE INDEX 1.52 (< OR =4); TROPONIN I < 0.02 NG/ML (< 0.10)
--- NOTE | 2019-09-20 17:23 | REPVR ---
PROCEDURE INFORMATION: Exam: CT Head Without Contrast Exam date and time: 09/20/2019 4:51 PM Age: 48 years old Clinical indication: Pain; Headache; Additional info: Headache, vomiting TECHNIQUE: Imaging protocol: Computed tomography of the head without contrast. Radiation optimization: All CT scans at this facility use at least one of these dose optimization techniques: automated exposure control; mA and/or kV adjustment per patient size (includes targeted exams where dose is matched to clinical indication); or iterative reconstruction. COMPARISON: CT Head without contrast 03/12/2019 2:05 PM FINDINGS: Brain: There is no acute intracranial hemorrhage, mass effect, or midline shift. Mild advanced for age cerebral and cerebellar substance loss is noted. Ventricles: No hydrocephalus. Bones/joints: No acute fracture. Sinuses: There is no acute sinusitis. Mastoid air cells: The mastoid air cells are clear. Orbits: A right scleral banding is noted. Soft tissues: Unremarkable. IMPRESSION: 1. No acute intracranial abnormality. 2. Mild advanced for age substance loss. Electronically signed by: Eyad Feng On 09/20/2019 17:23:04 PM
--- NOTE | 2019-09-20 17:34 | REP ---
Chest x-ray: Two views. History: Dizziness. Comparison chest x-ray: September 04, 2019. Findings: There is an old healed rib fracture on the left. The lungs are well inflated and free of infiltrate. Heart is not enlarged. Pulmonary vasculature is not increased. The pleural angles are sharp. Impression: No active disease. Electronically Signed by Armond Mazariegos MD 09/20/2019 05:26 P
--- NOTE | 2019-09-20 17:45 | REPVR ---
PROCEDURE INFORMATION: Exam: CT Abdomen And Pelvis With Contrast Exam date and time: 09/20/2019 4:51 PM Age: 48 years old Clinical indication: Vomiting; Abdominal pain; Generalized; Additional info: Gen abd pain, vomiting TECHNIQUE: Imaging protocol: Computed tomography of the abdomen and pelvis with intravenous contrast. Radiation optimization: All CT scans at this facility use at least one of these dose optimization techniques: automated exposure control; mA and/or kV adjustment per patient size (includes targeted exams where dose is matched to clinical indication); or iterative reconstruction. Contrast material: ISOVUE 370; Contrast volume: 100 ml; Contrast route: IV; COMPARISON: CT ABD/PEL W/IV ORAL CONTRAS 02/26/2019 10:44 PM FINDINGS: Lungs: Atelectasis is present in the lower lobes. Liver: The liver is mildly enlarged. Gallbladder and bile ducts: The gallbladder is moderately distended. There is no gallbladder wall thickening. Pancreas: Normal. No ductal dilation. Spleen: Normal. No splenomegaly. Adrenals: Normal. No mass. Kidneys and ureters: Normal. No hydronephrosis. Stomach and bowel: Prior gastric bypass surgery has been performed. There is no evidence of a bowel obstruction. Appendix: The appendix is not seen. However, there is no significant inflammation in the right lower quadrant to suggest appendicitis. Intraperitoneal space: Minimal edema and a probable small amount of fluid is noted around the gallbladder and under the right hepatic lobe. No free intraperitoneal air is identified. Vasculature: Unremarkable. No abdominal aortic aneurysm. Lymph nodes: Multiple small nonspecific mesenteric lymph nodes are present. Mildly enlarged nonspecific left inguinal lymph nodes are noted. Bladder: The urinary bladder is severely distended. Reproductive: Unremarkable as visualized. Bones/joints: Unremarkable. No acute fracture. Soft tissues: A small fat containing umbilical hernia is present. IMPRESSION: 1. Severely distended urinary bladder. Clinical correlation is recommended. 2. Moderately distended gallbladder with a small amount of pericholecystic fluid and edema. A right upper quadrant ultrasound or HIDA scan is suggested if there is clinical concern for acute cholecystitis. Electronically signed by: Eyad Feng On 09/20/2019 17:45:25 PM
[2019-09-20] MEDS ORDERED: DEXTROSE 50% 50 ML SYRINGE IV STA (17:51)
[2019-09-20] MEDS ORDERED: DEXTROSE 50% 50 ML SYRINGE As Ordered ONE (17:52)
--- NOTE | 2019-09-20 18:57 | REPVR ---
PROCEDURE INFORMATION: Exam: US Abdomen Limited, Right Upper Quadrant Exam date and time: 09/20/2019 6:45 PM Age: 48 years old Clinical indication: Abdominal pain; Additional info: Ruq pain eval for cholecystitis TECHNIQUE: Imaging protocol: Real-time ultrasound of the abdomen with image documentation. Examination was focused on the right upper quadrant. COMPARISON: Abdomen, limited US 09/26/2015 9:[address] ABD/PEL W/IV CONTRAST ONLY 09/20/2019 5:06:11 PM FINDINGS: Liver: The liver is enlarged, measuring approximately 23 cm. No hepatic mass is seen. Gallbladder: The gallbladder is severely distended or hydropic. No shadowing stones are seen. There is no gallbladder wall thickening. Edema around the gallbladder is better visualized on the preceding CT. Common bile duct: Normal. No stones. No dilation. Pancreas: The visualized pancreatic head and body appear within normal limits. The pancreatic tail is obscured by overlying bowel gas. Right kidney: Normal. No mass. No hydronephrosis. IMPRESSION: 1. Severely distended or hydropic gallbladder. No stones or gallbladder wall thickening is present. 2. Hepatomegaly Electronically signed by: Eyad Feng On 09/20/2019 18:57:13 PM
[2019-09-20] MEDS ORDERED: D5W/0.45% SODIUM CHLORIDE 1,000 ML IV SCH (20:00)
[2019-09-20] MEDS ORDERED: D5W/0.9% SODIUM CHLORIDE 1,000 ML IV SCH (20:33)
[2019-09-20] MEDS ORDERED: ARIP1TAB6 PO (20:36)
[2019-09-20] MEDS ORDERED: VITA50005 PO (20:36)
[2019-09-20] MEDS ORDERED: REME30TA PO (20:36)
[2019-09-20] MEDS ORDERED: GABA600T4 PO (20:36)
[2019-09-20] MEDS ORDERED: CYAN100050 PO (20:36)
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
[2019-09-20] MEDS ORDERED: ONDANSETRON 4MG/2ML VIAL (J2405) IV PRN (20:45)
--- NOTE | 2019-09-20 21:16 | ECGEPIP ---
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
[2019-09-20] MEDS ORDERED: ACETAMINOPHEN *IV* 1,000 MG in IV 1 EA IV PRN (21:45)
[2019-09-20 22:06] VITALS: BP 135/81
[2019-09-20] MEDS ORDERED: GLUCOSE 4 GM CHEW TABLET PO PRN (23:15)
[2019-09-20] MEDS ORDERED: DEXTROSE 50% 50 ML SYRINGE IV PRN (23:15)
[2019-09-20] MEDS ORDERED: GLUCAGON FOR INJ 1 MG VIAL (J1610) SC PRN (23:15)
[2019-09-20] MEDS ORDERED: PILL CUTTER 1 EACH XX PRN (23:45)
[2019-09-21] VITALS (7 sets, daily range): BP systolic 125–133; BP diastolic 69–74
[2019-09-21] MEDS: MIRTAZAPINE 15 MG TAB PO SCH ×2 (00:20→20:48)
[2019-09-21] MEDS: QUEtiapine FUMARATE 50 MG TAB PO SCH ×2 (00:20→20:50)
[2019-09-21] MEDS: rOPINIRole 0.25 MG TAB(REQUIP) PO SCH ×2 (00:20→20:49)
[2019-09-21] MEDS: NORTRIPTYLINE 25 MG CAP PO SCH ×2 (00:40→20:50)
[2019-09-21] MEDS: ARIPiprazole 10 MG TAB PO SCH ×2 (00:41→20:49)
[2019-09-21] MEDS: GABAPENTIN 300 MG CAP PO SCH ×4 (04:15→20:49)
[2019-09-21 06:43] LABS: HEMATOCRIT 31.3 % (42.0-52.0); HEMOGLOBIN 10.1 g/dl (13.5-17.5); MEAN CORPUSCULAR HEMOGLOBIN 26.7 pg (27.0-33.0); MEAN CORPUSCULAR HGB CONC 32.3 g/dl (32.0-36.5); MEAN CORPUSCULAR VOLUME 82.8 fl (80.0-96.0); PLATELET COUNT, AUTOMATED 330 10^3/uL (150-450); RED BLOOD COUNT 3.78 10^6/uL (4.30-6.10); WHITE BLOOD COUNT 3.6 10^3/uL (4.0-10.0)
[2019-09-21 07:08] LABS: ALBUMIN 2.3 GM/DL (3.2-5.2); ALT/SGPT 159 U/L (12-78); BILIRUBIN,TOTAL 0.3 MG/DL (0.2-1.0); BLOOD UREA NITROGEN 9 MG/DL (7-18); CARBON DIOXIDE LEVEL 28 MEQ/L (21-32); CHLORIDE LEVEL 105 MEQ/L (98-107); CREATININE FOR GFR 0.75 MG/DL (0.70-1.30); GLOMERULAR FILTRATION RATE > 60.0 (>60); GLUCOSE, FASTING 366 MG/DL (70-100); MAGNESIUM LEVEL 2.2 MG/DL (1.8-2.4); POTASSIUM SERUM 4.4 MEQ/L (3.5-5.1); SODIUM LEVEL 137 MEQ/L (136-145); TOTAL PROTEIN 5.7 GM/DL (6.4-8.2)
[2019-09-21] MEDS ORDERED: PANTOPRAZOLE 40MG TAB (PROTONIX) PO SCH (09:00)
[2019-09-21] MEDS ORDERED: ASPIRIN 325 MG TAB PO SCH (09:00)
[2019-09-21] MEDS ORDERED: INFLUENZA QUADRIVALENT PF VACCINE 0.5ML SYRINGE (90686) IM ONE (09:00)
[2019-09-21] MEDS ORDERED: LEVEMIR (INSULIN DETEMIR) 1 UNITS/0.01ML SC SCH (09:00)
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
[2019-09-21] MEDS: PIPERACILLIN/TAZOBACTAM SOD 3.375 GM in D5W MINI-BAG PLUS 50 ML IV SCH ×3 (09:54→21:25)
[2019-09-21] MEDS: PANTOPRAZOLE 40MG INJ (PROTONIX) (C9113) IV SCH (09:54)
[2019-09-21] MEDS: HEPARIN SOD (PORCINE) 5000 UNITS/ML VIAL (J1644 PER 1000UNITS) SQ SCH ×2 (09:55→20:48)
[2019-09-21] MEDS: ATORVASTATIN 20 MG TAB PO SCH (09:56)
[2019-09-21] MEDS: lamoTRIgine 100MG TAB PO SCH (09:56)
[2019-09-21] MEDS: IRBESARTAN 150 MG TAB PO SCH (10:03)
[2019-09-21] MEDS: metroNIDAZOLE 500 MG in IV 1 EA IV SCH ×2 (11:33→18:11)
[2019-09-21] MEDS: KCL 20MEQ IN 0.45NS 1000ML 1,000 ML IV SCH ×2 (11:33→23:59)
[2019-09-21] MEDS: HumaLOG INSULIN (NovoLOG) PER UNIT SC SCH ×3 (13:29→23:59)
[2019-09-21] MEDS ORDERED: HumaLOG INSULIN (NovoLOG) PER UNIT SC ONE (14:00)
--- NOTE | 2019-09-21 21:05 | CR ---
DATE OF CONSULTATION: 09/21/2019 Via telemedicine. Advanced wound care consultation Consult was requested by requested and ordered by Dr. Del Walker. This is regarding wound care for a neuropathic diabetic Rousseau grade 3 diabetic foot ulcer involving the left foot. The patient was admitted for acute cholecystitis and unrelated to his diabetic foot ulcer. He is nothing by mouth which at present has impacted his diabetic control as reflected by glucoses as high as 300s with episodes of hypoglycemia., The patient has been brittle in the past and has had a history of alcoholism but has remained sober over the last several months. Plantar aspect of the left foot at the base of the 1st metatarsal head shows a wound measuring 3.0 cm x 4.0 cm with a wound depth in the central portion of 0.5 cm. This wound base shows areas of superficial fibrin slough with areas of granulation tissue. The wound edges are closed, and there are no deep structures noted. The drainage is minimal to moderate, serosanguineous, without an odor. The periwound shows no erythema, maceration or ischemic change. The patient's wound is neuropathic and not ischemic by history. WOUND CARE TREATMENT: Dressing changes consisting of Endoform collagen placed in the wound and moistened with either hydrogel or saline then covered with a Hydrofera Blue foam and followed with an OptiLock dressing. This should be secured with a Kerlix. Dressings should be changed on an every other day basis or as needed. The patient should be nonweightbearing, and no ambulation should be pursued at this time. Depending upon the patient's hospital course or interventional procedures, he can be followed up at our advanced wound care center when he is ready for discharge. Please call and arrange for followup appointment. CHERYL
[2019-09-22 02:00] VITALS: BP 106/65
[2019-09-22] MEDS: metroNIDAZOLE 500 MG in IV 1 EA IV SCH ×3 (03:06→18:51)
[2019-09-22] MEDS: PIPERACILLIN/TAZOBACTAM SOD 3.375 GM in D5W MINI-BAG PLUS 50 ML IV SCH ×4 (04:38→21:14)
[2019-09-22 05:47] LABS: HEMATOCRIT 31.8 % (42.0-52.0); MEAN CORPUSCULAR HEMOGLOBIN 26.4 pg (27.0-33.0); MEAN CORPUSCULAR HGB CONC 31.4 g/dl (32.0-36.5); MEAN CORPUSCULAR VOLUME 83.9 fl (80.0-96.0); PLATELET COUNT, AUTOMATED 349 10^3/uL (150-450); RED BLOOD COUNT 3.79 10^6/uL (4.30-6.10); WHITE BLOOD COUNT 3.5 10^3/uL (4.0-10.0)
[2019-09-22] MEDS: HumaLOG INSULIN (NovoLOG) PER UNIT SC SCH ×3 (05:51→17:45)
[2019-09-22 06:00] VITALS: BP 125/70
[2019-09-22 06:15] LABS: ALBUMIN 2.4 GM/DL (3.2-5.2); ALT/SGPT 130 U/L (12-78); BILIRUBIN,TOTAL 0.4 MG/DL (0.2-1.0); BLOOD UREA NITROGEN 13 MG/DL (7-18); CALCIUM LEVEL 7.8 MG/DL (8.5-10.1); CARBON DIOXIDE LEVEL 24 MEQ/L (21-32); CHLORIDE LEVEL 103 MEQ/L (98-107); CREATININE FOR GFR 0.73 MG/DL (0.70-1.30); GLOMERULAR FILTRATION RATE > 60.0 (>60); GLUCOSE, FASTING 322 MG/DL (70-100); POTASSIUM SERUM 4.6 MEQ/L (3.5-5.1); SODIUM LEVEL 138 MEQ/L (136-145); TOTAL PROTEIN 5.6 GM/DL (6.4-8.2)
[2019-09-22] MEDS: ATORVASTATIN 20 MG TAB PO SCH (08:22)
[2019-09-22] MEDS: GABAPENTIN 300 MG CAP PO SCH ×3 (08:22→21:13)
[2019-09-22] MEDS: IRBESARTAN 150 MG TAB PO SCH (08:22)
[2019-09-22] MEDS: lamoTRIgine 100MG TAB PO SCH (08:23)
[2019-09-22] MEDS: HEPARIN SOD (PORCINE) 5000 UNITS/ML VIAL (J1644 PER 1000UNITS) SQ SCH ×2 (08:23→21:13)
[2019-09-22 10:00] VITALS: BP 128/68
[2019-09-22] MEDS: KCL 20MEQ IN 0.45NS 1000ML 1,000 ML IV SCH ×2 (10:00→10:16)
[2019-09-22 10:13] LABS: HEPATITIS B SURFACE ANTIGEN NEGATIVE (NEGATIVE)
[2019-09-22] MEDS ORDERED: LEVEMIR (INSULIN DETEMIR) 1 UNITS/0.01ML SC SCH (10:30)
--- NOTE | 2019-09-22 10:37 | IPN ---
DATE: 09/22/2019 Del's abdominal pain is more localized in the right upper quadrant today. Overall, he feels better. Says his pain is less intense. Blood sugars have been elevated, but it has been problematic in addressing these. His oral intake has been restricted due to pending abdominal pain workup. He has a HIDA scan pending today. The case was discussed with Dr. Huntley yesterday. Dr. Romero also made recommendations for wound care. PHYSICAL EXAMINATION: Afebrile, 132/69. GENERAL APPEARANCE: Alert, conversant, in no distress. LUNGS: Clear. HEART: Regular rhythm. ABDOMEN: Soft, tender in the right upper quadrant, mild guarding. EXTREMITIES: No edema. LABORATORY DATA: Electrolytes unremarkable. White count 3.5, hemoglobin 10, platelets 349. IMPRESSION: 1. Right upper quadrant pain. HIDA scan ordered. Surgical consult present. Continue with Zosyn and Flagyl. 2. Diabetes. This will be tough to stabilize until he is taking a consistent diet. I will start some Detemir insulin today.
[2019-09-22 10:41] LABS: HEPATITIS C VIRUS ABY INDEX < 0.0 INDEX (<0.8)
[2019-09-22 10:42] LABS: HEPATITIS B CORE ANTIBODY IGM NEGATIVE (NEGATIVE)
[2019-09-22 10:43] LABS: HEPATITIS A ANTIBODY IGM NEGATIVE (NEGATIVE)
[2019-09-22] MEDS: PANTOPRAZOLE 40MG INJ (PROTONIX) (C9113) IV SCH (12:54)
--- NOTE | 2019-09-22 13:38 | REP ---
HIDA SCAN: Following the intravenous administration of 6.5 millicuries technetium 99m mebrofenin, multiple images of the right upper quadrant are performed every 5 minutes for a period of 1 hour. There is biliary to bowel transit seen at about 15 minutes post injection. The gallbladder starts to fill at that time and is gradually well visualized at 45 to 60 minutes post injection, with no scintigraphic evidence of cholecystitis. IMPRESSION: No scintigraphic evidence of cholecystitis. Electronically Signed by Fito Clements MD 09/22/2019 04:10 P
[2019-09-22 14:00] VITALS: BP 130/81
[2019-09-22 18:00] VITALS: BP 131/78
[2019-09-22] MEDS ORDERED: HumaLOG INSULIN (NovoLOG) PER UNIT SC SCH (21:00)
[2019-09-22] MEDS: MIRTAZAPINE 15 MG TAB PO SCH (21:13)
[2019-09-22] MEDS: rOPINIRole 0.25 MG TAB(REQUIP) PO SCH (21:14)
[2019-09-22] MEDS: ARIPiprazole 10 MG TAB PO SCH (21:14)
[2019-09-22] MEDS: NORTRIPTYLINE 25 MG CAP PO SCH (21:14)
[2019-09-22] MEDS: QUEtiapine FUMARATE 50 MG TAB PO SCH (21:14)
[2019-09-22 22:00] VITALS: BP 129/79
[2019-09-23 02:00] VITALS: BP 131/76
[2019-09-23] MEDS: metroNIDAZOLE 500 MG in IV 1 EA IV SCH ×2 (02:13→12:08)
[2019-09-23] MEDS: PIPERACILLIN/TAZOBACTAM SOD 3.375 GM in D5W MINI-BAG PLUS 50 ML IV SCH ×2 (03:36→10:00)
[2019-09-23 06:00] VITALS: BP 137/79
[2019-09-23 06:38] LABS: HEMATOCRIT 33.6 % (42.0-52.0); HEMOGLOBIN 10.5 g/dl (13.5-17.5); MEAN CORPUSCULAR HGB CONC 31.3 g/dl (32.0-36.5); MEAN CORPUSCULAR VOLUME 83.2 fl (80.0-96.0); PLATELET COUNT, AUTOMATED 372 10^3/uL (150-450); RED BLOOD COUNT 4.04 10^6/uL (4.30-6.10); WHITE BLOOD COUNT 5.2 10^3/uL (4.0-10.0)
[2019-09-23 07:13] LABS: ALBUMIN 2.6 GM/DL (3.2-5.2); ALT/SGPT 106 U/L (12-78); BILIRUBIN,TOTAL 0.6 MG/DL (0.2-1.0); BLOOD UREA NITROGEN 14 MG/DL (7-18); CALCIUM LEVEL 8.2 MG/DL (8.5-10.1); CARBON DIOXIDE LEVEL 25 MEQ/L (21-32); CHLORIDE LEVEL 101 MEQ/L (98-107); CREATININE FOR GFR 0.93 MG/DL (0.70-1.30); GLOMERULAR FILTRATION RATE > 60.0 (>60); GLUCOSE, FASTING 426 MG/DL (70-100); POTASSIUM SERUM 4.5 MEQ/L (3.5-5.1); SODIUM LEVEL 134 MEQ/L (136-145); TOTAL PROTEIN 6.1 GM/DL (6.4-8.2)
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
[2019-09-23] MEDS ORDERED: LEVEMIR (INSULIN DETEMIR) 1 UNITS/0.01ML SC SCH (09:00)
[2019-09-23] MEDS ORDERED: INFLUENZA QUADRIVALENT PF VACCINE 0.5ML SYRINGE (90686) IM ONE (09:00)
[2019-09-23 09:02] VITALS: BP 146/84
[2019-09-23] MEDS: lamoTRIgine 100MG TAB PO SCH (09:02)
[2019-09-23] MEDS: ATORVASTATIN 20 MG TAB PO SCH (09:02)
[2019-09-23] MEDS: GABAPENTIN 300 MG CAP PO SCH (09:02)
[2019-09-23] MEDS: IRBESARTAN 150 MG TAB PO SCH (09:02)
[2019-09-23] MEDS: PANTOPRAZOLE 40MG INJ (PROTONIX) (C9113) IV SCH (09:04)
[2019-09-23] MEDS: HEPARIN SOD (PORCINE) 5000 UNITS/ML VIAL (J1644 PER 1000UNITS) SQ SCH (09:04)
[2019-09-23] MEDS: HumaLOG INSULIN (NovoLOG) PER UNIT SC SCH ×2 (09:06→12:08)
[2019-09-23 10:00] VITALS: BP 137/64
--- NOTE | 2019-09-23 12:15 | DSES ---
DATE OF ADMISSION: 09/20/2019 DATE OF DISCHARGE: 09/23/2019 PRINCIPLE DIAGNOSIS: Abdominal pain, presumed colitis. SECONDARY DIAGNOSES: Type 1 diabetes with hyper and hypoglycemia. Chronic left foot wound. Coronary artery disease. History of bipolar disorder with suicide attempts including with insulin. HISTORY: Del Rust was admitted with right upper quadrant abdominal pain. Details are in the history and physical on admission. HOSPITAL COURSE: He was admitted to the medical bed. CT of the abdomen and pelvis and ultrasound of the gallbladder suggests the possibility of acute cholecystitis. HIDA scan was negative. No evidence of acute cholecystitis. Abdominal pain improved. His diet was advanced. On the day of discharge, he is eager to go home. He feels well and thinks that he can be eating as well at home. His blood sugars are labile, which is baseline. He was seen in consultation by Dr. Huntley who did not feel that he was a surgical candidate. Dr. Romero manages his left foot wound. LABS: Today sodium 134, potassium 4.5, BUN 42, creatinine 0.9, glucose 426. White count 5.2, hemoglobin 10.5, platelets 372. Blood sugars last night was 104. Hepatitis panel negative. DISPOSITION: I think he can safely go home. His blood sugars are erratic but that is his baseline. This could be managed by his primary care provider. His medications at discharge are unchanged from admission. - acamprosate 666 mg with meals. - Abilify 20 mg nightly - aripiprazole 5 mg daily - aspirin 325 mg daily - atorvastatin 40 mg daily - vitamin D3 1000 units daily - B12 1000 mcg daily - Drisdol 50,000 units - gabapentin 600 mg three times a day - Levemir 35 units daily - Lispro insulin per sliding scale - irbesartan 75 mg daily - Lamictal 100 mg daily - Remeron 30 mg nightly - nortriptyline 50 mg nightly - Protonix 40 mg daily - Seroquel 50 mg nightly - Requip 0.75 mg nightly The patient will followup with his primary care provider in a week. Diet and activity as tolerated. No pending labs at the time of discharge.
[2019-09-23 14:00] VITALS: BP 136/88
== END 2019-09-23 15:32 | disposition home or self-care (01) | DRG 392 ==
LOC: M ED 15:09 → M ED INP 20:33 → ENRESERV 20:44 → M MSPAV 22:07
PROVIDERS: ADMIT Internal Medicine; ATTEND Internal Medicine
DX: K52.9 Noninfective gastroenteritis and colitis, unspecified (principal); F31.30 Bipolar disorder, current episode depressed, mild or moderate severity, unspecified; Z91.5 Personal history of self-harm; E11.649 Type 2 diabetes mellitus with hypoglycemia without coma; I10 Essential (primary) hypertension; E78.5 Hyperlipidemia, unspecified; I25.10 Atherosclerotic heart disease of native coronary artery without angina pectoris; N52.9 Male erectile dysfunction, unspecified; K21.9 Gastro-esophageal reflux disease without esophagitis; G25.81 Restless legs syndrome; Z89.429 Acquired absence of other toe(s), unspecified side; F41.1 Generalized anxiety disorder; Z98.84 Bariatric surgery status; F17.200 Nicotine dependence, unspecified, uncomplicated; F10.11 Alcohol abuse, in remission; F11.11 Opioid abuse, in remission; E11.621 Type 2 diabetes mellitus with foot ulcer; Z79.82 Long term (current) use of aspirin; Z79.4 Long term (current) use of insulin; Z79.899 Other long term (current) drug therapy; Z88.1 Allergy status to other antibiotic agents; Z88.5 Allergy status to narcotic agent; Z88.8 Allergy status to other drugs, medicaments and biological substances; I73.9 Peripheral vascular disease, unspecified; R74.0 Nonspecific elevation of levels of transaminase and lactic acid dehydrogenase [LDH]

== ENCOUNTER 2019-09-24 18:04 | Emergency (ER) | payer MEDICARE, MEDICAID ==
[~2019-09-24] VITALS: Ht 177.8 cm; Wt 86.4 kg
[~2019-09-24 18:04] MED LIST changes: +CYAN100050 PO; +GABA600T4 PO; +NORT50CA PO
[2019-09-24] MEDS ORDERED: NS 1,000 ML IV ONE (18:45)
[2019-09-24 18:51] LABS: VENOUS BASE EXCESS -4.7 (-2.0-2.0); VENOUS HCO3 20.4 MEQ/L (23.0-27.0); VENOUS O2 SATURATION 78.9 % (60.0-80.0); VENOUS PARTIAL PRESSURE O2 45.6 mmHg (30.0-50.0); VENOUS PH 7.348 UNITS (7.330-7.430); VENOUS STANDARD HCO3 20.2 MEQ/L; VENOUS TOTAL CO2 21.6 MEQ/L (24.0-28.0)
[2019-09-24 19:00] LABS: BASO % 0.7 % (0.0-1.0); EOS # 0.2 10^3/uL (0.0-0.5); HEMATOCRIT 32.9 % (42.0-52.0); HEMOGLOBIN 10.3 g/dl (13.5-17.5); LYMPH # 1.3 10^3/uL (1.5-5.0); LYMPH % 21.8 % (24.0-44.0); MEAN CORPUSCULAR HEMOGLOBIN 26.3 pg (27.0-33.0); MEAN CORPUSCULAR HGB CONC 31.3 g/dl (32.0-36.5); MEAN CORPUSCULAR VOLUME 83.9 fl (80.0-96.0); MONO # 0.3 10^3/uL (0.0-0.8); NEUTROPHILS # 4.2 10^3/uL (1.5-8.5); NEUTROPHILS % 68.3 % (36.0-66.0); PLATELET COUNT, AUTOMATED 396 10^3/uL (150-450); RED BLOOD COUNT 3.92 10^6/uL (4.30-6.10); WHITE BLOOD COUNT 6.1 10^3/uL (4.0-10.0)
[2019-09-24 19:28] LABS: BLOOD UREA NITROGEN 15 MG/DL (7-18); CALCIUM LEVEL 8.5 MG/DL (8.5-10.1); CARBON DIOXIDE LEVEL 23 MEQ/L (21-32); CHLORIDE LEVEL 101 MEQ/L (98-107); CK-MB VALUE MASS 2.9 NG/ML (<3.6); CPK CREATINE PHOSPHOKINASE 116 U/L (39-308); CREATININE FOR GFR 1.46 MG/DL (0.70-1.30); GLOMERULAR FILTRATION RATE 54.6 (>60); GLUCOSE, FASTING 467 MG/DL (70-100); POTASSIUM SERUM 5.4 MEQ/L (3.5-5.1); SODIUM LEVEL 136 MEQ/L (136-145); TROPONIN I < 0.02 NG/ML (< 0.10)
[2019-09-24] MEDS ORDERED: HumuLIN R (REGULAR) INSULIN (NovoLIN R) **100U/ML** PER UNIT SC ONE (21:30)
[2019-09-24 21:46] VITALS: BP 128/75
--- NOTE | 2019-09-25 18:40 | ECGEPIP ---
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
== END 2019-09-24 21:48 | disposition home or self-care (01) ==
LOC: EDBD 18:04 → M ED 18:04
DX: E10.649 Type 1 diabetes mellitus with hypoglycemia without coma (principal); R07.9 Chest pain, unspecified; I10 Essential (primary) hypertension; E78.5 Hyperlipidemia, unspecified; F10.11 Alcohol abuse, in remission; F11.11 Opioid abuse, in remission; F31.9 Bipolar disorder, unspecified; F19.10 Other psychoactive substance abuse, uncomplicated; Z91.5 Personal history of self-harm; Z88.5 Allergy status to narcotic agent; Z79.4 Long term (current) use of insulin; Z79.82 Long term (current) use of aspirin; Z79.84 Long term (current) use of oral hypoglycemic drugs; Z79.899 Other long term (current) drug therapy

== ENCOUNTER → 2019-09-27 | Outpatient (REF) | payer MEDICARE, MEDICAID ==
[2019-09-27 17:02] LABS: BASO # 0.1 10^3/uL (0.0-0.2); BASO % 1.3 % (0.0-1.0); EOS # 0.5 10^3/uL (0.0-0.5); EOS % 7.9 % (0.0-3.0); HEMOGLOBIN 11.2 g/dl (13.5-17.5); LYMPH # 1.9 10^3/uL (1.5-5.0); LYMPH % 29.1 % (24.0-44.0); MEAN CORPUSCULAR HEMOGLOBIN 26.5 pg (27.0-33.0); MEAN CORPUSCULAR HGB CONC 31.1 g/dl (32.0-36.5); MEAN CORPUSCULAR VOLUME 85.1 fl (80.0-96.0); MONO # 0.6 10^3/uL (0.0-0.8); MONO % 8.7 % (0.0-5.0); NEUTROPHILS # 3.4 10^3/uL (1.5-8.5); NEUTROPHILS % 52.8 % (36.0-66.0); PLATELET COUNT, AUTOMATED 463 10^3/uL (150-450); RED BLOOD COUNT 4.23 10^6/uL (4.30-6.10); WHITE BLOOD COUNT 6.4 10^3/uL (4.0-10.0)
[2019-09-27 17:18] LABS: ALBUMIN 3.4 GM/DL (3.2-5.2); ALT/SGPT 84 U/L (12-78); BILIRUBIN,TOTAL 0.2 MG/DL (0.2-1.0); BLOOD UREA NITROGEN 12 MG/DL (7-18); CALCIUM LEVEL 8.6 MG/DL (8.5-10.1); CARBON DIOXIDE LEVEL 31 MEQ/L (21-32); CHLORIDE LEVEL 105 MEQ/L (98-107); CHOLESTEROL LEVEL 168 MG/DL (<200); CHOLESTEROL RISK RATIO 2.545 (<5); CREATININE FOR GFR 0.81 MG/DL (0.70-1.30); FOLATE 11.2 NG/ML; GLOMERULAR FILTRATION RATE > 60.0 (>60); GLUCOSE, FASTING 50 MG/DL (70-100); HDL CHOLESTEROL 66 MG/DL (>40); LDL CHOLESTEROL 83 MG/DL (<100); NON-HDL-C 102 MG/DL; POTASSIUM SERUM 4.4 MEQ/L (3.5-5.1); SODIUM LEVEL 141 MEQ/L (136-145); TOTAL 25(OH) VITAMIN D 42.5 NG/ML (30.0-100.0); TOTAL PROTEIN 6.8 GM/DL (6.4-8.2); TRIGLYCERIDES LEVEL 97 MG/DL (<150); VITAMIN B12 LEVEL > 2000 PG/ML
[2019-09-27 17:21] LABS: HEMOGLOBIN A1c 10.2 %
[2019-09-27 18:08] LABS: MAU/CREAT RATIO 1377.4 MCG/MG (0.0-30.0)
== END ==
LOC: M SFHCCLAY 10:45
PROVIDERS: ATTEND Family Medicine
DX: E10.65 Type 1 diabetes mellitus with hyperglycemia (principal); I10 Essential (primary) hypertension; Z98.84 Bariatric surgery status; Z79.899 Other long term (current) drug therapy

== ENCOUNTER 2019-10-07 07:34 | Inpatient (IN) | payer MEDICARE, MEDICAID ==
[~2019-10-07] VITALS: Ht 177.8 cm; Wt 84.1 kg
[2019-10-07] MEDS ORDERED: ACETAMINOPHEN 325 MG TAB PO ONE (08:00)
--- NOTE | 2019-10-07 08:08 | REP ---
Portable chest x-ray: Single view. History: Chest pain. Comparison chest x-ray: September 20, 2019. Findings: EKG monitoring electrodes overlie the chest. Heart is not enlarged. Pulmonary vasculature is not increased. There is an old healed rib fracture on the left posteriorly. Pleural angles are sharp. There appear to be bilateral cervical ribs. Impression: No active cardiopulmonary disease. Electronically Signed by Armond Mazariegos MD 10/07/2019 08:00 A
[2019-10-07 08:28] LABS: BASO # 0.1 10^3/uL (0.0-0.2); EOS # 0.2 10^3/uL (0.0-0.5); EOS % 3.1 % (0.0-3.0); HEMATOCRIT 38.9 % (42.0-52.0); HEMOGLOBIN 10.7 g/dl (13.5-17.5); LYMPH # 0.8 10^3/uL (1.5-5.0); LYMPH % 12.4 % (24.0-44.0); MEAN CORPUSCULAR HEMOGLOBIN 25.8 pg (27.0-33.0); MEAN CORPUSCULAR HGB CONC 27.5 g/dl (32.0-36.5); MEAN CORPUSCULAR VOLUME 93.7 fl (80.0-96.0); MONO # 0.3 10^3/uL (0.0-0.8); MONO % 4.7 % (0.0-5.0); NEUTROPHILS # 4.9 10^3/uL (1.5-8.5); NEUTROPHILS % 78.6 % (36.0-66.0); PLATELET COUNT, AUTOMATED 420 10^3/uL (150-450); RED BLOOD COUNT 4.15 10^6/uL (4.30-6.10); WHITE BLOOD COUNT 6.2 10^3/uL (4.0-10.0)
[2019-10-07] MEDS ORDERED: ESCI10TA2 PO (08:30)
[2019-10-07 08:55] LABS: BLOOD UREA NITROGEN 26 MG/DL (7-18); CALCIUM LEVEL 8.7 MG/DL (8.5-10.1); CARBON DIOXIDE LEVEL 17 MEQ/L (21-32); CHLORIDE LEVEL 88 MEQ/L (98-107); CK-MB VALUE MASS 1.8 NG/ML (<3.6); CPK CREATINE PHOSPHOKINASE 104 U/L (39-308); CREATININE FOR GFR 1.77 MG/DL (0.70-1.30); GLOMERULAR FILTRATION RATE 43.7 (>60); GLUCOSE, FASTING 1307 MG/DL (70-100); MB/CK RELATIVE INDEX 1.73 (< OR =4); POTASSIUM SERUM 7.1 MEQ/L (3.5-5.1); SODIUM LEVEL 124 MEQ/L (136-145); TROPONIN I < 0.02 NG/ML (< 0.10)
[2019-10-07] MEDS ORDERED: SODIUM BICARBONATE 8.4% INJ 50 ML SYRINGE IV STA (08:58)
[2019-10-07] MEDS ORDERED: INSULIN HUMAN REGULAR 100 UNITS in NS 99 ML IV SCH ×3 (09:00→14:00)
[2019-10-07] MEDS ORDERED: NS 1,000 ML IV ONE ×2 (09:00→09:30)
[2019-10-07] MEDS ORDERED: SOD POLYSTYRENE SULFONATE SUSP 15 GM/60 ML UD PO ONE (09:00)
[2019-10-07] MEDS ORDERED: CALCIUM CHLORIDE 10% 1 GM in D5W 100 ML IV ONE (09:00)
[2019-10-07] MEDS ORDERED: INSULIN IV RATE CHANGE DOCUMENTATION ML/HR XX SCH (09:00)
[2019-10-07 09:20] LABS: ALBUMIN 3.1 GM/DL (3.2-5.2); ALT/SGPT 61 U/L (12-78); BILIRUBIN,DIRECT 0.2 MG/DL (0.0-0.2); BILIRUBIN,TOTAL 0.5 MG/DL (0.2-1.0); LIPASE 149 U/L (73-393); MAGNESIUM LEVEL 2.6 MG/DL (1.8-2.4); PHOSPHORUS LEVEL 5.7 MG/DL (2.5-4.9); TOTAL PROTEIN 6.8 GM/DL (6.4-8.2)
[2019-10-07] MEDS ORDERED: CALCIUM CHLORIDE 10% 1 GM/10 ML SYR IV STA (09:39)
[2019-10-07 09:45] LABS: OSMOLALITY SERUM 352 MOSM/KG (275-295)
[2019-10-07] MEDS ORDERED: CALCIUM GLUCONATE 1,000MG/10ML VIAL (100MG/ML) (J0610) As Ordered ONE (09:51)
[2019-10-07 10:08] LABS: ACETONE/KETONE > 46.00 MG/DL (<2.81)
[2019-10-07] MEDS ORDERED: NS 0.45% 1,000 ML IV SCH (10:15)
[2019-10-07 10:30] LABS: VENOUS BASE EXCESS -12.3 (-2.0-2.0); VENOUS HCO3 13.9 MEQ/L (23.0-27.0); VENOUS O2 SATURATION 98.5 % (60.0-80.0); VENOUS PARTIAL PRESSURE CO2 32.7 mmHg (38.0-50.0); VENOUS PH 7.245 UNITS (7.330-7.430); VENOUS STANDARD HCO3 14.8 MEQ/L; VENOUS TOTAL CO2 14.9 MEQ/L (24.0-28.0)
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
[2019-10-07 11:10] LABS: ALBUMIN 2.9 GM/DL (3.2-5.2); CALCIUM LEVEL 8.9 MG/DL (8.5-10.1); CREATININE FOR GFR 1.75 MG/DL (0.70-1.30); GLOMERULAR FILTRATION RATE 44.3 (>60); PHOSPHORUS LEVEL 5.5 MG/DL (2.5-4.9); POTASSIUM SERUM 5.4 MEQ/L (3.5-5.1)
[2019-10-07 11:29] VITALS: BP 133/65
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
[2019-10-07 12:43] LABS: POTASSIUM SERUM 4.3 MEQ/L (3.5-5.1)
[2019-10-07] MEDS: ACAMPROSATE CALCIUM 333 MG TABLET (CAMPRAL) PO SCH ×2 (12:58→17:32)
[2019-10-07] MEDS ORDERED: HumuLIN R (REGULAR) INSULIN (NovoLIN R) **100U/ML** PER UNIT IV ONE (13:00)
[2019-10-07 13:22] LABS: CALCIUM LEVEL 9.7 MG/DL (8.5-10.1); CREATININE FOR GFR 1.9 MG/DL (0.70-1.30); GLOMERULAR FILTRATION RATE 40.3 (>60)
[2019-10-07 14:00] VITALS: BP 103/58
[2019-10-07] MEDS: INSULIN IV RATE CHANGE DOCUMENTATION ML/HR XX SCH ×3 (14:29→16:43)
[2019-10-07 16:00] VITALS: BP 120/61
[2019-10-07] MEDS: GABAPENTIN 300 MG CAP PO SCH ×2 (16:44→20:36)
[2019-10-07] MEDS ORDERED: DEXTROSE 50% 50 ML SYRINGE IV PRN (16:45)
[2019-10-07] MEDS ORDERED: GLUCAGON FOR INJ 1 MG VIAL (J1610) SC PRN (16:45)
[2019-10-07] MEDS ORDERED: GLUCOSE 4 GM CHEW TABLET PO PRN (16:45)
[2019-10-07 17:19] LABS: BLOOD UREA NITROGEN 22 MG/DL (7-18); CALCIUM LEVEL 9.5 MG/DL (8.5-10.1); CARBON DIOXIDE LEVEL 32 MEQ/L (21-32); CHLORIDE LEVEL 104 MEQ/L (98-107); CREATININE FOR GFR 1.29 MG/DL (0.70-1.30); GLOMERULAR FILTRATION RATE > 60.0 (>60); GLUCOSE, FASTING 116 MG/DL (70-100); SODIUM LEVEL 141 MEQ/L (136-145)
[2019-10-07] MEDS: HumaLOG INSULIN (NovoLOG) PER UNIT SC SCH (17:30)
[2019-10-07] MEDS ORDERED: KCL 40MEQ IN D5/0.45NS 1000ML 1,000 ML IV SCH (17:45)
[2019-10-07] MEDS ORDERED: LEVEMIR (INSULIN DETEMIR) 1 UNITS/0.01ML SC ONE (18:00)
[2019-10-07 18:49] LABS: APPEARANCE, URINE HAZY (CLEAR); BACTERIA, URINE AUTO NEGATIVE (NEGATIVE); BILIRUBIN, URINE AUTO NEGATIVE (NEGATIVE); BLOOD, URINE BLOOD NEGATIVE (NEGATIVE); COLOR, URINE YELLOW (YELLOW); GLUCOSE, URINE (UA) AUTO 3+ mg/dL (NEGATIVE); KETONE, URINE AUTO TRACE mg/dL (NEGATIVE); LEUKOCYTE ESTERASE, URINE AUTO NEGATIVE (NEGATIVE); MUCUS, URINE SMALL (NEGATIVE); NITRITE, URINE AUTO NEGATIVE (NEGATIVE); PROTEIN, URINE AUTO 2+ mg/dL (NEGATIVE); RBC, URINE AUTO 1 /HPF (0-3); SPECIFIC GRAVITY URINE AUTO 1.028 (1.002-1.035); SQUAMOUS EPITHELIAL CELL UR AU 0 /HPF (0-6); UROBILINOGEN, URINE AUTO 0.2 mg/dL (0.0-2.0); WBC, URINE AUTO 4 /HPF (0-3)
[2019-10-07 20:00] VITALS: BP 126/62
[2019-10-07] MEDS: HEPARIN SOD (PORCINE) 5000 UNITS/ML VIAL (J1644 PER 1000UNITS) SQ SCH (20:37)
[2019-10-07] MEDS ORDERED: HumaLOG INSULIN (NovoLOG) PER UNIT SC SCH (21:00)
[2019-10-07] MEDS ORDERED: MIRTAZAPINE 15 MG TAB PO SCH (21:00)
[2019-10-07] MEDS ORDERED: ARIPiprazole 10 MG TAB PO SCH (21:00)
[2019-10-07] MEDS ORDERED: QUEtiapine FUMARATE 50 MG TAB PO SCH (21:00)
[2019-10-07] MEDS ORDERED: LEVEMIR (INSULIN DETEMIR) 1 UNITS/0.01ML SC SCH (21:00)
[2019-10-07 21:42] LABS: BLOOD UREA NITROGEN 20 MG/DL (7-18); CALCIUM LEVEL 8.8 MG/DL (8.5-10.1); CARBON DIOXIDE LEVEL 29 MEQ/L (21-32); CHLORIDE LEVEL 104 MEQ/L (98-107); CREATININE FOR GFR 1.33 MG/DL (0.70-1.30); GLOMERULAR FILTRATION RATE > 60.0 (>60); GLUCOSE, FASTING 290 MG/DL (70-100); POTASSIUM SERUM 3.5 MEQ/L (3.5-5.1); SODIUM LEVEL 139 MEQ/L (136-145)
[2019-10-08] VITALS: BP 110/61
[2019-10-08 01:15] LABS: BLOOD UREA NITROGEN 20 MG/DL (7-18); CALCIUM LEVEL 8.6 MG/DL (8.5-10.1); CARBON DIOXIDE LEVEL 32 MEQ/L (21-32); CHLORIDE LEVEL 106 MEQ/L (98-107); CREATININE FOR GFR 1.14 MG/DL (0.70-1.30); GLOMERULAR FILTRATION RATE > 60.0 (>60); GLUCOSE, FASTING 117 MG/DL (70-100); POTASSIUM SERUM 3.3 MEQ/L (3.5-5.1); SODIUM LEVEL 142 MEQ/L (136-145)
[2019-10-08] MEDS ORDERED: KCL 20MEQ in NS 1000ML 1,000 ML IV SCH (01:30)
[2019-10-08 04:00] VITALS: BP 106/53
[2019-10-08 05:00] LABS: HEMATOCRIT 31.6 % (42.0-52.0); MEAN CORPUSCULAR HEMOGLOBIN 26.5 pg (27.0-33.0); MEAN CORPUSCULAR HGB CONC 31.6 g/dl (32.0-36.5); MEAN CORPUSCULAR VOLUME 83.6 fl (80.0-96.0); PLATELET COUNT, AUTOMATED 334 10^3/uL (150-450); RED BLOOD COUNT 3.78 10^6/uL (4.30-6.10); WHITE BLOOD COUNT 5.8 10^3/uL (4.0-10.0)
[2019-10-08 05:25] LABS: ALBUMIN 2.4 GM/DL (3.2-5.2); ALT/SGPT 42 U/L (12-78); BILIRUBIN,TOTAL 0.2 MG/DL (0.2-1.0); BLOOD UREA NITROGEN 18 MG/DL (7-18); CALCIUM LEVEL 8.3 MG/DL (8.5-10.1); CARBON DIOXIDE LEVEL 33 MEQ/L (21-32); CHLORIDE LEVEL 108 MEQ/L (98-107); CREATININE FOR GFR 0.92 MG/DL (0.70-1.30); GLOMERULAR FILTRATION RATE > 60.0 (>60); GLUCOSE, FASTING 72 MG/DL (70-100); POTASSIUM SERUM 3.4 MEQ/L (3.5-5.1); SODIUM LEVEL 143 MEQ/L (136-145); TOTAL PROTEIN 5.8 GM/DL (6.4-8.2)
[2019-10-08] MEDS ORDERED: HumaLOG INSULIN (NovoLOG) PER UNIT SC SCH ×2 (07:30→21:00)
[2019-10-08 08:15] VITALS: BP 131/67
[2019-10-08] MEDS: GABAPENTIN 300 MG CAP PO SCH (08:40)
[2019-10-08] MEDS: HumaLOG INSULIN (NovoLOG) PER UNIT SC SCH (08:40)
[2019-10-08] MEDS: ACAMPROSATE CALCIUM 333 MG TABLET (CAMPRAL) PO SCH (08:41)
[2019-10-08] MEDS: HEPARIN SOD (PORCINE) 5000 UNITS/ML VIAL (J1644 PER 1000UNITS) SQ SCH (08:41)
[2019-10-08] MEDS ORDERED: VITAMIN D 1,000 INTERNATIONAL UNITS TABLET PO SCH (09:00)
[2019-10-08] MEDS ORDERED: lamoTRIgine 100MG TAB PO SCH (09:00)
[2019-10-08] MEDS ORDERED: PANTOPRAZOLE 40MG TAB (PROTONIX) PO SCH (09:00)
[2019-10-08] MEDS ORDERED: ASPIRIN 325 MG TAB PO SCH (09:00)
[2019-10-08] MEDS ORDERED: ESCITALOPRAM OXALATE 10 MG TAB (LEXAPRO) PO SCH (09:00)
[2019-10-08] MEDS ORDERED: ATORVASTATIN 20 MG TAB PO SCH (09:00)
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
--- NOTE | 2019-10-08 18:36 | ECGEPIP ---
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
[2019-10-08] MEDS ORDERED: LEVEMIR (INSULIN DETEMIR) 1 UNITS/0.01ML SC SCH (21:00)
== END 2019-10-08 09:47 | disposition home or self-care (01) | DRG 638 ==
LOC: EDBD 07:34 → M ED 07:34 → M ED INP 09:50 → ENRESERV 10:07 → M ICU 11:21
PROVIDERS: ADMIT Internal Medicine; ATTEND Internal Medicine
DX: E10.10 Type 1 diabetes mellitus with ketoacidosis without coma (principal); N17.9 Acute kidney failure, unspecified; F31.81 Bipolar II disorder; E87.1 Hypo-osmolality and hyponatremia; Z86.73 Personal history of transient ischemic attack (TIA), and cerebral infarction without residual deficits; E87.5 Hyperkalemia; I25.10 Atherosclerotic heart disease of native coronary artery without angina pectoris; I25.2 Old myocardial infarction; I10 Essential (primary) hypertension; E78.5 Hyperlipidemia, unspecified; Z91.5 Personal history of self-harm; F10.20 Alcohol dependence, uncomplicated; F41.9 Anxiety disorder, unspecified; H54.7 Unspecified visual loss; Z98.84 Bariatric surgery status; E10.42 Type 1 diabetes mellitus with diabetic polyneuropathy; E10.621 Type 1 diabetes mellitus with foot ulcer; Z79.82 Long term (current) use of aspirin; Z79.4 Long term (current) use of insulin; Z79.899 Other long term (current) drug therapy; Z88.1 Allergy status to other antibiotic agents; Z88.5 Allergy status to narcotic agent; K21.9 Gastro-esophageal reflux disease without esophagitis; G25.81 Restless legs syndrome; Z89.429 Acquired absence of other toe(s), unspecified side; F17.200 Nicotine dependence, unspecified, uncomplicated; Z88.8 Allergy status to other drugs, medicaments and biological substances; E10.65 Type 1 diabetes mellitus with hyperglycemia

== ENCOUNTER → 2019-10-13 | Outpatient (REF) | payer MEDICARE, MEDICAID ==
[2019-10-13 12:57] LABS: RHEUMATOID FACTOR QUANT 22.3 IU/ML (<15.0); TOTAL PROTEIN 6.6 GM/DL (6.4-8.2)
[2019-10-14 07:48] LABS: ALBUMIN 3.51 GM/DL (3.29-5.55); ALBUMIN % 53.2 % (55.8-66.1); ALPHA-1-GLOBULIN % 4.3 % (2.9-4.9); ALPHA-1-GLOBULINS 0.28 GM/DL (0.17-0.41); ALPHA-2-GLOBULINS 1.14 GM/DL (0.42-0.99); ALPHA-2-GLOBULINS % 17.2 % (7.1-11.8); BETA-1-GLOBULINS 0.51 GM/DL (0.28-0.60); BETA-1-GLOBULINS % 7.7 % (4.7-7.2); BETA-2-GLOBULINS 0.42 GM/DL (0.19-0.55); BETA-2-GLOBULINS % 6.3 % (3.2-6.5); GAMMA GLOBULIN % 11.3 % (11.1-18.8); GAMMA GLOBULINS 0.75 GM/DL (0.65-1.58)
[2019-10-20 10:06] LABS: CYCLIC CITRULLINATED PEPTIDE 7 units (0-19); HLA-B27 Negative (.); SSA SJOGRENS A <0.2 AI (0.0-0.9); SSB SJOGRENS B <0.2 AI (0.0-0.9)
== END ==
LOC: M SFHCRHEU 09:58
PROVIDERS: ATTEND Internal Medicine
DX: R76.8 Other specified abnormal immunological findings in serum (principal); M54.5 Low back pain
CPT/HCPCS: 36415; 81374; 84165; 85652; 86140; 86200; 86235; 86431; G0463

== ENCOUNTER 2019-12-23 09:25 | Inpatient (IN) | payer MEDICARE, MEDICAID ==
[~2019-12-23] VITALS: Ht 177.8 cm; Wt 82.5 kg
[~2019-12-23 09:25] MED LIST changes: +ENOXAPARIN 40MG/0.4ML SYRINGE (J1650 PER 10MG) SC SCH
[2019-12-23] MEDS ORDERED: NS 1,000 ML IV ONE ×3 (09:30→10:00)
[2019-12-23] MEDS ORDERED: INSULIN REGULAR IN 0.9 % NACL 100 UNIT in IV 1 EA IV SCH ×4 (09:46→10:38)
[2019-12-23 09:58] LABS: VENOUS BASE EXCESS -23.9 (-2.0-2.0); VENOUS HCO3 5.9 MEQ/L (23.0-27.0); VENOUS O2 SATURATION 90.2 % (60.0-80.0); VENOUS PARTIAL PRESSURE CO2 24.1 mmHg (38.0-50.0); VENOUS PARTIAL PRESSURE O2 82.5 mmHg (30.0-50.0); VENOUS PH 7.005 UNITS (7.330-7.430); VENOUS STANDARD HCO3 7.3 MEQ/L; VENOUS TOTAL CO2 6.6 MEQ/L (24.0-28.0)
[2019-12-23] MEDS ORDERED: INSULIN IV RATE CHANGE DOCUMENTATION ML/HR XX SCH (10:00)
[2019-12-23 10:04] LABS: BASO # 0.1 10^3/uL (0.0-0.2); BASO % 0.7 % (0.0-1.0); HEMATOCRIT 36.2 % (42.0-52.0); HEMOGLOBIN 9.7 g/dl (13.5-17.5); LYMPH # 0.5 10^3/uL (1.5-5.0); LYMPH % 4.8 % (24.0-44.0); MEAN CORPUSCULAR HEMOGLOBIN 25.8 pg (27.0-33.0); MEAN CORPUSCULAR HGB CONC 26.8 g/dl (32.0-36.5); MEAN CORPUSCULAR VOLUME 96.3 fl (80.0-96.0); MONO # 0.7 10^3/uL (0.0-0.8); MONO % 6.6 % (0.0-5.0); NEUTROPHILS # 9.3 10^3/uL (1.5-8.5); NEUTROPHILS % 87.4 % (36.0-66.0); PLATELET COUNT, AUTOMATED 504 10^3/uL (150-450); RED BLOOD COUNT 3.76 10^6/uL (4.30-6.10); WHITE BLOOD COUNT 10.6 10^3/uL (4.0-10.0)
--- NOTE | 2019-12-23 10:24 | REP ---
CHEST, SINGLE VIEW: There is no evidence of acute infiltrate. No pleural effusion is seen. The heart is normal in size. The mediastinal silhouette is unremarkable. The visualized osseous structures are intact. IMPRESSION: No acute pulmonary disease. Electronically Signed by Fito Clements MD 12/23/2019 07:40 P
[2019-12-23 10:30] LABS: OSMOLALITY SERUM 361 MOSM/KG (275-295)
[2019-12-23 10:47] LABS: CALCIUM LEVEL 8.2 MG/DL (8.5-10.1); CREATININE FOR GFR 2.2 MG/DL (0.70-1.30); GLOMERULAR FILTRATION RATE 33.9 (>56)
[2019-12-23 10:48] LABS: ACETONE/KETONE > 46.00 MG/DL (<2.81); ALBUMIN 2.8 GM/DL (3.2-5.2); ALT/SGPT 35 U/L (12-78); BILIRUBIN,DIRECT < 0.1 MG/DL (0.0-0.2); BILIRUBIN,TOTAL 0.6 MG/DL (0.2-1.0); LIPASE 102 U/L (73-393); TOTAL PROTEIN 6.4 GM/DL (6.4-8.2)
[2019-12-23 10:57] LABS: POTASSIUM SERUM 6.6 MEQ/L (3.5-5.1)
[2019-12-23] MEDS ORDERED: CALCIUM GLUCONATE 1,000 MG in D5W MINI-BAG PLUS 100 ML IV ONE (11:00)
[2019-12-23] MEDS ORDERED: VITAD1000T PO (11:23)
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
[2019-12-23 13:00] VITALS: BP 125/67
[2019-12-23 13:26] LABS: CREATININE FOR GFR 2.31 MG/DL (0.70-1.30)
[2019-12-23] MEDS ORDERED: PILL CUTTER 1 EACH XX PRN (13:30)
[2019-12-23] MEDS: PANTOPRAZOLE 40MG VIAL (C9113 PER 1) IV SCH (13:38)
[2019-12-23] MEDS: INSULIN IV RATE CHANGE DOCUMENTATION ML/HR XX SCH ×3 (13:39→17:27)
--- NOTE | 2019-12-23 15:09 | ECGEPIP ---
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
[2019-12-23 16:00] VITALS: BP 113/58
[2019-12-23] MEDS: NS 1,000 ML IV SCH ×2 (16:05→18:12)
[2019-12-23 16:18] LABS: CALCIUM LEVEL 8.3 MG/DL (8.5-10.1); CREATININE FOR GFR 2.15 MG/DL (0.70-1.30); GLOMERULAR FILTRATION RATE 34.8 (>56); MAGNESIUM LEVEL 2.8 MG/DL (1.8-2.4); PHOSPHORUS LEVEL 3.9 MG/DL (2.5-4.9)
[2019-12-23] MEDS ORDERED: LEVEMIR (INSULIN DETEMIR) 1 UNITS/0.01ML SC SCH (16:45)
[2019-12-23] MEDS: HumaLOG INSULIN (NovoLOG) PER UNIT SC SCH (17:30)
[2019-12-23] MEDS: GABAPENTIN 300 MG CAP PO SCH ×2 (17:48→20:33)
[2019-12-23] MEDS: PIPERACILLIN/TAZOBACTAM SOD 3.375 GM in D5W MINI-BAG PLUS 50 ML IV SCH ×2 (17:49→23:53)
[2019-12-23] MEDS: ACAMPROSATE CALCIUM 333 MG TABLET (CAMPRAL) PO SCH (17:49)
[2019-12-23] MEDS ORDERED: GLUCAGON INJ 1MG VIAL SC PRN (18:00)
[2019-12-23] MEDS ORDERED: GLUCOSE 4GM CHEW TABLET PO PRN (18:00)
[2019-12-23] MEDS ORDERED: DEXTROSE 50% 50 ML SYRINGE IV PRN (18:00)
[2019-12-23 20:00] VITALS: BP 115/68
[2019-12-23 20:27] LABS: CREATININE FOR GFR 1.72 MG/DL (0.70-1.30); MAGNESIUM LEVEL 2.3 MG/DL (1.8-2.4); PHOSPHORUS LEVEL 3.1 MG/DL (2.5-4.9); POTASSIUM SERUM 3.8 MEQ/L (3.5-5.1)
[2019-12-23] MEDS ORDERED: HumaLOG INSULIN (NovoLOG) PER UNIT SC SCH (21:00)
[2019-12-23] MEDS ORDERED: MIRTAZAPINE 15 MG TAB PO SCH (21:00)
[2019-12-23] MEDS ORDERED: ARIPiprazole 10 MG TAB PO SCH (21:00)
[2019-12-23] MEDS ORDERED: QUEtiapine FUMARATE 50 MG TAB PO SCH (21:00)
[2019-12-23 21:30] VITALS: BP 110/60
[2019-12-24] VITALS: BP 115/64
[2019-12-24 00:37] LABS: CALCIUM LEVEL 7.8 MG/DL (8.5-10.1); CREATININE FOR GFR 1.51 MG/DL (0.70-1.30); GLOMERULAR FILTRATION RATE 52.3 (>56); POTASSIUM SERUM 3.6 MEQ/L (3.5-5.1)
[2019-12-24] MEDS: NS 1,000 ML IV SCH (02:19)
[2019-12-24 04:00] VITALS: BP 126/65
[2019-12-24 04:43] LABS: HEMATOCRIT 28.3 % (42.0-52.0); HEMOGLOBIN 9.3 g/dl (13.5-17.5); MEAN CORPUSCULAR HEMOGLOBIN 25.9 pg (27.0-33.0); MEAN CORPUSCULAR HGB CONC 32.9 g/dl (32.0-36.5); MEAN CORPUSCULAR VOLUME 78.8 fl (80.0-96.0); PLATELET COUNT, AUTOMATED 418 10^3/uL (150-450); RED BLOOD COUNT 3.59 10^6/uL (4.30-6.10); WHITE BLOOD COUNT 9.3 10^3/uL (4.0-10.0)
[2019-12-24] MEDS: PIPERACILLIN/TAZOBACTAM SOD 3.375 GM in D5W MINI-BAG PLUS 50 ML IV SCH (04:57)
[2019-12-24 05:08] LABS: ALBUMIN 2.4 GM/DL (3.2-5.2); BILIRUBIN,TOTAL 0.5 MG/DL (0.2-1.0); CALCIUM LEVEL 7.7 MG/DL (8.5-10.1); CREATININE FOR GFR 1.4 MG/DL (0.70-1.30); GLOMERULAR FILTRATION RATE 57.1 (>56); MAGNESIUM LEVEL 2.3 MG/DL (1.8-2.4); PHOSPHORUS LEVEL 2.9 MG/DL (2.5-4.9); POTASSIUM SERUM 3.7 MEQ/L (3.5-5.1); TOTAL PROTEIN 5.5 GM/DL (6.4-8.2)
[2019-12-24 08:00] VITALS: BP 146/70
[2019-12-24] MEDS: ACAMPROSATE CALCIUM 333 MG TABLET (CAMPRAL) PO SCH (08:29)
[2019-12-24] MEDS: PANTOPRAZOLE 40MG VIAL (C9113 PER 1) IV SCH (08:29)
[2019-12-24] MEDS: HumaLOG INSULIN (NovoLOG) PER UNIT SC SCH (08:30)
[2019-12-24 08:31] VITALS: BP 146/70
[2019-12-24] MEDS: GABAPENTIN 300 MG CAP PO SCH (08:31)
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
[2019-12-24] MEDS ORDERED: ATORVASTATIN 20 MG TAB PO SCH (09:00)
[2019-12-24] MEDS ORDERED: ASPIRIN 325 MG TAB PO SCH (09:00)
[2019-12-24] MEDS ORDERED: lamoTRIgine 100MG TAB PO SCH (09:00)
[2019-12-24] MEDS ORDERED: VITAMIN D 1,000 INTERNATIONAL UNITS TABLET PO SCH (09:00)
[2019-12-24] MEDS ORDERED: ESCITALOPRAM OXALATE 10 MG TAB (LEXAPRO) PO SCH (09:00)
[2019-12-24] MEDS ORDERED: IRBESARTAN 150 MG TAB PO SCH (09:00)
== END 2019-12-24 09:09 | disposition home or self-care (01) | DRG 638 ==
LOC: EDBD 09:25 → M ED 09:25 → M ED INP 10:52 → ENRESERV 11:04 → M ICU 12:40
PROVIDERS: ADMIT Internal Medicine; ATTEND Internal Medicine
DX: E10.10 Type 1 diabetes mellitus with ketoacidosis without coma (principal); N17.9 Acute kidney failure, unspecified; F31.81 Bipolar II disorder; Z91.14 Patient's other noncompliance with medication regimen; I25.10 Atherosclerotic heart disease of native coronary artery without angina pectoris; I25.2 Old myocardial infarction; E66.9 Obesity, unspecified; Z86.73 Personal history of transient ischemic attack (TIA), and cerebral infarction without residual deficits; F10.10 Alcohol abuse, uncomplicated; I10 Essential (primary) hypertension; Z79.899 Other long term (current) drug therapy; Z79.82 Long term (current) use of aspirin; Z79.4 Long term (current) use of insulin; Z88.5 Allergy status to narcotic agent; Z88.8 Allergy status to other drugs, medicaments and biological substances; Z98.84 Bariatric surgery status; H54.8 Legal blindness, as defined in USA

== ENCOUNTER 2020-03-11 17:46 | Emergency (ER) | payer MEDICAID, MEDICARE ==
[~2020-03-11] VITALS: Ht 177.8 cm; Wt 88.0 kg
[~2020-03-11 17:46] MED LIST changes: +D31000TA2 PO; -ENOXAPARIN 40MG/0.4ML SYRINGE (J1650 PER 10MG) SC SCH; +PANT40TA29 PO; -PANT40TA3 PO
[2020-03-11 18:29] LABS: VENOUS BASE EXCESS 2.8 (-2.0-2.0); VENOUS HCO3 27.5 MEQ/L (23.0-27.0); VENOUS PARTIAL PRESSURE CO2 42.6 mmHg (38.0-50.0); VENOUS PARTIAL PRESSURE O2 93.3 mmHg (30.0-50.0); VENOUS PH 7.427 UNITS (7.330-7.430); VENOUS TOTAL CO2 28.8 MEQ/L (24.0-28.0)
[2020-03-11 18:30] LABS: VENOUS O2 SATURATION 97.1 % (60.0-80.0)
[2020-03-11 18:31] LABS: BASO # 0.1 10^3/uL (0.0-0.2); BASO % 0.8 % (0.0-1.0); EOS # 0.4 10^3/uL (0.0-0.5); EOS % 5.4 % (0.0-3.0); HEMATOCRIT 33.1 % (42.0-52.0); HEMOGLOBIN 10.4 g/dl (13.5-17.5); LYMPH # 1.6 10^3/uL (1.5-5.0); LYMPH % 22.7 % (24.0-44.0); MEAN CORPUSCULAR HEMOGLOBIN 25.1 pg (27.0-33.0); MEAN CORPUSCULAR HGB CONC 31.4 g/dl (32.0-36.5); MONO # 0.6 10^3/uL (0.0-0.8); MONO % 8.6 % (0.0-5.0); NEUTROPHILS # 4.5 10^3/uL (1.5-8.5); NEUTROPHILS % 62.2 % (36.0-66.0); PLATELET COUNT, AUTOMATED 433 10^3/uL (150-450); RED BLOOD COUNT 4.14 10^6/uL (4.30-6.10); WHITE BLOOD COUNT 7.2 10^3/uL (4.0-10.0)
[2020-03-11 18:41] LABS: INR 0.88; PROTHROMBIN TIME 12.1 SECONDS (11.8-14.0)
[2020-03-11 18:42] LABS: PARTIAL THROMBOPLASTIN TIME 26.9 SECONDS (25.0-38.4)
--- NOTE | 2020-03-11 18:45 | REPVR ---
PROCEDURE INFORMATION: Exam: XR Left Foot Complete Exam date and time: 03/11/2020 6:32 PM Age: 49 years old Clinical indication: Pain; Other: Left foot wound R/O osteo; Additional info: Left foot wound; R/O osteo TECHNIQUE: Imaging protocol: XR Left foot. Views: 3 or more views. COMPARISON: CR Foot, complete 06/14/2016 6:14 PM FINDINGS: Bones/joints: Mild degenerative changes. Otherwise unremarkable. Soft tissues: Soft tissue swelling great toe. Large ulcer demonstrated in the plantar aspect of the great toe at the metatarsophalangeal joint level. IMPRESSION: Soft tissue swelling great toe. Large ulcer demonstrated in the plantar aspect of the great toe at the metatarsophalangeal joint level. No bone destruction. Electronically signed by: Parag Salvador On 03/11/2020 18:43:29 PM
--- NOTE | 2020-03-11 18:46 | REPVR ---
PROCEDURE INFORMATION: Exam: XR Chest, 1 View Exam date and time: 03/11/2020 6:32 PM Age: 49 years old Clinical indication: Fever; Additional info: Fever; Congestion TECHNIQUE: Imaging protocol: XR of the chest Views: 1 view. COMPARISON: CR PORTABLE CHEST X-RAY 12/23/2019 10:04 AM FINDINGS: Lungs: Unremarkable. No consolidation. Pleural space: Unremarkable. No pleural effusion. No pneumothorax. Heart/Mediastinum: Unremarkable. No cardiomegaly. Bones/joints: Unremarkable. IMPRESSION: No acute findings. Electronically signed by: Parag Salvador On 03/11/2020 18:43:53 PM
--- NOTE | 2020-03-11 19:07 | REPVR ---
PROCEDURE INFORMATION: Exam: US Duplex Lower Extremity Veins, Bilateral Exam date and time: 03/11/2020 6:56 PM Age: 49 years old Clinical indication: Pain; Leg, lower; Bilateral; Additional info: Bilateral lower leg swelling; R/O dvt TECHNIQUE: Imaging protocol: Real-time duplex ultrasound of the extremities with 2-D wade scale, color Doppler flow and spectral waveform analysis with image documentation. Complete exam focused on the bilateral lower extremity veins. COMPARISON: US Duplex, Ext,LOWER veins,unilat 06/13/2016 3:13 PM FINDINGS: Right deep veins: Unremarkable. The common femoral, femoral, proximal profunda femoral and popliteal veins are patent without thrombus. Normal Doppler waveforms. Normal compressibility and/or augmentation response. Right superficial veins: Saphenofemoral junction is patent without thrombus. Left deep veins: Unremarkable. The common femoral, femoral, proximal profunda femoral and popliteal veins are patent without thrombus. Normal Doppler waveforms. Normal compressibility and/or augmentation response. Left superficial veins: Saphenofemoral junction is patent without thrombus. Soft tissues: Bilateral lower leg edema. IMPRESSION: Bilateral lower leg edema. No DVT. Electronically signed by: Parag Salvador On 03/11/2020 19:07:04 PM
[2020-03-11 19:08] LABS: ALBUMIN 2.9 GM/DL (3.2-5.2); ALT/SGPT 23 U/L (12-78); AMYLASE 38 U/L (25-115); BILIRUBIN,DIRECT < 0.1 MG/DL (0.0-0.2); BILIRUBIN,TOTAL 0.2 MG/DL (0.2-1.0); BLOOD UREA NITROGEN 20 MG/DL (7-18); C REACTIVE PROTEIN QUANTITATIV 4.82 MG/DL (0.00-0.30); CARBON DIOXIDE LEVEL 32 MEQ/L (21-32); CHLORIDE LEVEL 105 MEQ/L (98-107); CK-MB VALUE MASS 1.3 NG/ML (<3.6); CPK CREATINE PHOSPHOKINASE 86 U/L (39-308); CREATININE FOR GFR 0.92 MG/DL (0.70-1.30); GLOMERULAR FILTRATION RATE > 60.0 (>56); GLUCOSE, FASTING 49 MG/DL (70-100); MB/CK RELATIVE INDEX 1.51 (< OR =4); NT-PRO BNP 228 PG/ML (<125); POTASSIUM SERUM 3.9 MEQ/L (3.5-5.1); SODIUM LEVEL 138 MEQ/L (136-145); TOTAL PROTEIN 7.1 GM/DL (6.4-8.2); TROPONIN I < 0.02 NG/ML (< 0.10)
[2020-03-11] MEDS ORDERED: CLEO300C2 PO (19:43)
[2020-03-11] MEDS ORDERED: CLINDAMYCIN 150MG CAPSULE PO ONE (19:45)
[2020-03-11 20:13] VITALS: BP 138/78
--- NOTE | 2020-03-29 13:10 | ECGEPIP ---
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
== END 2020-03-11 20:16 | disposition home or self-care (01) ==
LOC: M ED 17:46
DX: L03.116 Cellulitis of left lower limb (principal); L97.529 Non-pressure chronic ulcer of other part of left foot with unspecified severity; R60.0 Localized edema; R94.31 Abnormal electrocardiogram [ECG] [EKG]; E11.9 Type 2 diabetes mellitus without complications; I10 Essential (primary) hypertension; K21.9 Gastro-esophageal reflux disease without esophagitis; I25.2 Old myocardial infarction; Z86.73 Personal history of transient ischemic attack (TIA), and cerebral infarction without residual deficits; R56.9 Unspecified convulsions; F31.9 Bipolar disorder, unspecified; F17.210 Nicotine dependence, cigarettes, uncomplicated

== ENCOUNTER 2020-03-12 20:59 | Emergency (ER) | payer MEDICARE ==
[~2020-03-12] VITALS: Ht 177.8 cm; Wt 87.5 kg
[~2020-03-12 20:59] MED LIST changes: +CLEO300C2 PO
[2020-03-12 22:15] VITALS: BP 132/74
[2020-03-12] MEDS ORDERED: NORCO 5/325MG TABLET (BULK FOR ED) PO ONE (22:15)
== END 2020-03-12 22:24 | disposition home or self-care (01) ==
LOC: M ED 20:59
DX: L97.529 Non-pressure chronic ulcer of other part of left foot with unspecified severity (principal); E11.649 Type 2 diabetes mellitus with hypoglycemia without coma; Z91.19 Patient's noncompliance with other medical treatment and regimen; G40.919 Epilepsy, unspecified, intractable, without status epilepticus; E78.5 Hyperlipidemia, unspecified; I25.10 Atherosclerotic heart disease of native coronary artery without angina pectoris; K21.9 Gastro-esophageal reflux disease without esophagitis; F33.9 Major depressive disorder, recurrent, unspecified; F17.210 Nicotine dependence, cigarettes, uncomplicated; Z79.82 Long term (current) use of aspirin; Z79.899 Other long term (current) drug therapy; Z79.4 Long term (current) use of insulin

== ENCOUNTER 2020-03-27 22:44 | Emergency (ER) | payer MEDICARE ==
[~2020-03-27] VITALS: Ht 177.8 cm; Wt 84.4 kg
[2020-03-27] MEDS ORDERED: GABAPENTIN 300 MG CAP PO ONE (23:30)
[2020-03-28 00:37] LABS: BLOOD UREA NITROGEN 23 MG/DL (7-18); CALCIUM LEVEL 8.6 MG/DL (8.5-10.1); CARBON DIOXIDE LEVEL 22 MEQ/L (21-32); CHLORIDE LEVEL 96 MEQ/L (98-107); CREATININE FOR GFR 1.22 MG/DL (0.70-1.30); GLOMERULAR FILTRATION RATE > 60.0 (>56); GLUCOSE, FASTING 603 MG/DL (70-100); SODIUM LEVEL 129 MEQ/L (136-145)
[2020-03-28] MEDS ORDERED: HumuLIN R (REGULAR) INSULIN (NovoLIN R) **100U/ML** PER UNIT SC ONE (00:45)
[2020-03-28 01:01] VITALS: BP 133/58
[2020-03-28] MEDS ORDERED: [UNRECOGNIZED DRUG - CODE] PO (23:00)
== END 2020-03-28 01:02 | disposition home or self-care (01) ==
LOC: M ED 22:44
DX: E11.40 Type 2 diabetes mellitus with diabetic neuropathy, unspecified (principal); Z79.4 Long term (current) use of insulin; Z79.2 Long term (current) use of antibiotics; Z79.899 Other long term (current) drug therapy; F10.10 Alcohol abuse, uncomplicated; F17.200 Nicotine dependence, unspecified, uncomplicated

== ENCOUNTER 2020-03-28 19:43 | Inpatient (IN) | payer MEDICARE ==
[~2020-03-28] VITALS: Ht 177.8 cm; Wt 86.7 kg
[2020-03-28] MEDS ORDERED: ADENOSINE 6MG/2ML INJECTION (J0153) As Ordered ONE (19:52)
[2020-03-28] MEDS ORDERED: ADENOSINE 6MG/2ML INJECTION (J0153) IV STA (19:53)
[2020-03-28 20:32] LABS: BASO # 0.1 10^3/uL (0.0-0.2); BASO % 1.1 % (0.0-1.0); EOS % 0.4 % (0.0-3.0); HEMOGLOBIN 10.1 g/dl (13.5-17.5); LYMPH # 0.9 10^3/uL (1.5-5.0); LYMPH % 11.9 % (24.0-44.0); MEAN CORPUSCULAR HEMOGLOBIN 24.6 pg (27.0-33.0); MEAN CORPUSCULAR HGB CONC 28.1 g/dl (32.0-36.5); MEAN CORPUSCULAR VOLUME 87.8 fl (80.0-96.0); MONO # 0.4 10^3/uL (0.0-0.8); MONO % 4.7 % (0.0-5.0); NEUTROPHILS % 81.1 % (36.0-66.0); PLATELET COUNT, AUTOMATED 476 10^3/uL (150-450); WHITE BLOOD COUNT 7.5 10^3/uL (4.0-10.0)
--- NOTE | 2020-03-28 20:49 | REPVR ---
PROCEDURE INFORMATION: Exam: XR Chest, 1 View Exam date and time: 03/28/2020 7:58 PM Age: 49 years old Clinical indication: Chest pain; Type not specified TECHNIQUE: Imaging protocol: XR of the chest Views: 1 view. COMPARISON: CR Chest, 1 view 03/11/2020 6:24 PM FINDINGS: Lungs: Unremarkable. No consolidation. Pleural space: Unremarkable. No pleural effusion. No pneumothorax. Heart/Mediastinum: Unremarkable. No cardiomegaly. Bones/joints: Unremarkable. IMPRESSION: No acute findings. Electronically signed by: Kris Torrez On 03/28/2020 20:48:37 PM
[2020-03-28 20:53] LABS: INR 1.07; PROTHROMBIN TIME 14.1 SECONDS (11.8-14.0)
[2020-03-28 20:54] LABS: PARTIAL THROMBOPLASTIN TIME 27.5 SECONDS (25.0-38.4)
[2020-03-28 21:29] LABS: ALBUMIN 2.8 GM/DL (3.2-5.2); ALT/SGPT 16 U/L (12-78); BILIRUBIN,DIRECT 0.1 MG/DL (0.0-0.2); BILIRUBIN,TOTAL 0.5 MG/DL (0.2-1.0); BLOOD UREA NITROGEN 36 MG/DL (7-18); CALCIUM LEVEL 8.6 MG/DL (8.5-10.1); CARBON DIOXIDE LEVEL 8 MEQ/L (21-32); CHLORIDE LEVEL 90 MEQ/L (98-107); CK-MB VALUE MASS 2.8 NG/ML (<3.6); CPK CREATINE PHOSPHOKINASE 103 U/L (39-308); CREATININE FOR GFR 1.68 MG/DL (0.70-1.30); FREE T4 0.99 NG/DL (0.76-1.46); GLOMERULAR FILTRATION RATE 46.3 (>56); GLUCOSE, FASTING 747 MG/DL (70-100); MAGNESIUM LEVEL 2.3 MG/DL (1.8-2.4); MB/CK RELATIVE INDEX 2.72 (< OR =4); PHOSPHORUS LEVEL 7.1 MG/DL (2.5-4.9); POTASSIUM SERUM 5.6 MEQ/L (3.5-5.1); SODIUM LEVEL 124 MEQ/L (136-145); TOTAL PROTEIN 6.9 GM/DL (6.4-8.2); TROPONIN I < 0.02 NG/ML (< 0.10)
[2020-03-28] MEDS ORDERED: NS 1,000 ML IV ONE (21:45)
[2020-03-28] MEDS ORDERED: INSULIN REGULAR IN 0.9 % NACL 100 UNIT in IV 1 EA IV SCH ×4 (21:49→22:24)
[2020-03-28] MEDS ORDERED: HumuLIN R (REGULAR) INSULIN (NovoLIN R) **100U/ML** PER UNIT IV ONE (22:00)
[2020-03-28] MEDS ORDERED: INSULIN IV RATE CHANGE DOCUMENTATION ML/HR XX SCH (22:00)
[2020-03-28 22:03] LABS: VENOUS BASE EXCESS -24.5 (-2.0-2.0); VENOUS HCO3 5.4 MEQ/L (23.0-27.0); VENOUS O2 SATURATION 97.6 % (60.0-80.0); VENOUS PARTIAL PRESSURE CO2 22.6 mmHg (38.0-50.0); VENOUS PARTIAL PRESSURE O2 132.2 mmHg (30.0-50.0); VENOUS PH 6.995 UNITS (7.330-7.430); VENOUS STANDARD HCO3 7.1 MEQ/L; VENOUS TOTAL CO2 6.1 MEQ/L (24.0-28.0)
[2020-03-28 22:14] LABS: OSMOLALITY SERUM 328 MOSM/KG (275-295)
[2020-03-28] MEDS ORDERED: NS 1,000 ML IV SCH (22:24)
[2020-03-28 22:34] LABS: ACETONE/KETONE > 46.00 MG/DL (<2.81)
[2020-03-28] MEDS ORDERED: LORazepam 2 MG TAB PO PRN (22:45)
[2020-03-28 22:56] LABS: LIPASE 34 U/L (73-393)
[2020-03-28] MEDS ORDERED: [UNRECOGNIZED DRUG - CODE] PO (23:00)
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
--- NOTE | 2020-03-28 23:24 | REPVR ---
PROCEDURE INFORMATION: Exam: CT Abdomen And Pelvis Without Contrast Exam date and time: 03/28/2020 10:54 PM Age: 49 years old Clinical indication: Abdominal pain; Epigastric; Additional info: Epigastric, ruq abdominal pain TECHNIQUE: Imaging protocol: Computed tomography of the abdomen and pelvis without contrast. Radiation optimization: All CT scans at this facility use at least one of these dose optimization techniques: automated exposure control; mA and/or kV adjustment per patient size (includes targeted exams where dose is matched to clinical indication); or iterative reconstruction. COMPARISON: CT ABD/PEL W/IV CONTRAST ONLY 09/20/2019 5:06 PM FINDINGS: Liver: Normal. No mass. Gallbladder and bile ducts: Normal. No calcified stones. No ductal dilation. Pancreas: Normal. No ductal dilation. Spleen: Normal. No splenomegaly. Adrenals: Normal. No mass. Kidneys and ureters: Normal. No hydronephrosis. Stomach and bowel: Moderate colonic fecal load. Evidence of prior gastric bypass surgery. The bypassed stomach remanent is distended with fluid. Appendix: No evidence of appendicitis. Intraperitoneal space: Unremarkable. No free air. No significant fluid collection. Vasculature: Unremarkable. No abdominal aortic aneurysm. Lymph nodes: Unremarkable. No enlarged lymph nodes. Bladder: Unremarkable as visualized. Reproductive: Unremarkable as visualized. Bones/joints: Unremarkable. No acute fracture. Soft tissues: Unremarkable. IMPRESSION: Evidence of prior gastric bypass with distended gastric remanent. Differential includes obstruction versus fistula. Further evaluation with CT with oral contrast or barium study can be performed. Electronically signed by: Kris Torrez On 03/28/2020 23:24:28 PM
[2020-03-28] MEDS: INSULIN IV RATE CHANGE DOCUMENTATION ML/HR XX SCH (23:36)
[2020-03-28] MEDS ORDERED: PILL CUTTER 1 EACH XX PRN (23:45)
[2020-03-28 23:53] LABS: VENOUS BASE EXCESS -23.2 (-2.0-2.0); VENOUS HCO3 5.4 MEQ/L (23.0-27.0); VENOUS O2 SATURATION 95.5 % (60.0-80.0); VENOUS PARTIAL PRESSURE CO2 19.9 mmHg (38.0-50.0); VENOUS PARTIAL PRESSURE O2 97.7 mmHg (30.0-50.0); VENOUS PH 7.055 UNITS (7.330-7.430); VENOUS STANDARD HCO3 7.7 MEQ/L; VENOUS TOTAL CO2 6.1 MEQ/L (24.0-28.0)
[2020-03-28 23:57] LABS: C REACTIVE PROTEIN QUANTITATIV 8.85 MG/DL (0.00-0.30); MAGNESIUM LEVEL 2.4 MG/DL (1.8-2.4)
[2020-03-29] VITALS (10 sets, daily range): BP systolic 92–124; BP diastolic 52–62
--- NOTE | 2020-03-29 00:12 | REPVR ---
PROCEDURE INFORMATION: Exam: US Duplex Right Lower Extremity Veins, Limited Exam date and time: 03/28/2020 12:00 AM Age: 49 years old Clinical indication: Edema, localized; Lower extremity, right; Additional info: Right lower extremity swelling TECHNIQUE: Imaging protocol: Real-time Duplex ultrasound of the Right Lower Extremity with 2-D wade scale, color Doppler flow and spectral waveform analysis with image documentation. Limited exam was focused on the right lower extremity veins. COMPARISON: US Duplex, Ext LOWER veins, bilat 03/11/2020 6:45 PM FINDINGS: Right deep veins: Unremarkable. The common femoral, femoral and popliteal veins are patent without thrombus. Normal Doppler waveforms. Normal compressibility and/or augmentation response. Right superficial veins: Unremarkable. Saphenofemoral junction is patent without thrombus. Soft tissues: Unremarkable. Lymph nodes: 1.9 x 2.6 x 1.1 cm right inguinal lymph node, likely reactive. IMPRESSION: 1. No sonographic evidence of deep venous thrombosis. 2. Additional findings, as above. Electronically signed by: Owen Colvin On 03/29/2020 00:12:04 AM
[2020-03-29] MEDS: DOXYCYCLINE HYCLATE 100 MG in D5W MINI-BAG PLUS 100 ML IV SCH ×2 (00:25→12:53)
[2020-03-29] MEDS: THIAMINE 100 MG TAB PO SCH ×3 (00:25→20:56)
[2020-03-29 00:33] LABS: CALCIUM LEVEL 8.4 MG/DL (8.5-10.1); CREATININE FOR GFR 1.84 MG/DL (0.70-1.30); GLOMERULAR FILTRATION RATE 41.7 (>56); PHOSPHORUS LEVEL 7.5 MG/DL (2.5-4.9); POTASSIUM SERUM 5.6 MEQ/L (3.5-5.1)
[2020-03-29 01:29] LABS: ERYTHROCYTE SEDIMENTATION RATE 76 mm/hr (0-20)
[2020-03-29] MEDS ORDERED: NS 500 ML IV ONE (01:30)
[2020-03-29 02:08] LABS: VENOUS BASE EXCESS -17.3 (-2.0-2.0); VENOUS HCO3 9.1 MEQ/L (23.0-27.0); VENOUS PARTIAL PRESSURE CO2 23.7 mmHg (38.0-50.0); VENOUS PARTIAL PRESSURE O2 97.6 mmHg (30.0-50.0); VENOUS STANDARD HCO3 11.3 MEQ/L; VENOUS TOTAL CO2 9.8 MEQ/L (24.0-28.0)
[2020-03-29 02:56] LABS: CK-MB VALUE MASS 5.1 NG/ML (<3.6); MAGNESIUM LEVEL 2.4 MG/DL (1.8-2.4); MB/CK RELATIVE INDEX 4.36 (< OR =4); TROPONIN I 0.83 NG/ML (< 0.10)
[2020-03-29 04:13] LABS: VENOUS BASE EXCESS -10.5 (-2.0-2.0); VENOUS HCO3 14.2 MEQ/L (23.0-27.0); VENOUS O2 SATURATION 99.2 % (60.0-80.0); VENOUS PARTIAL PRESSURE CO2 28.2 mmHg (38.0-50.0); VENOUS PARTIAL PRESSURE O2 148.1 mmHg (30.0-50.0); VENOUS PH 7.321 UNITS (7.330-7.430); VENOUS STANDARD HCO3 16.1 MEQ/L; VENOUS TOTAL CO2 15.1 MEQ/L (24.0-28.0)
[2020-03-29] MEDS: INSULIN IV RATE CHANGE DOCUMENTATION ML/HR XX SCH ×3 (04:21→07:07)
[2020-03-29 04:31] LABS: BASO % 0.4 % (0.0-1.0); EOS % 0.2 % (0.0-3.0); HEMATOCRIT 31.3 % (42.0-52.0); HEMOGLOBIN 9.5 g/dl (13.5-17.5); LYMPH # 1.4 10^3/uL (1.5-5.0); LYMPH % 15.7 % (24.0-44.0); MEAN CORPUSCULAR HEMOGLOBIN 24.6 pg (27.0-33.0); MEAN CORPUSCULAR HGB CONC 30.4 g/dl (32.0-36.5); MEAN CORPUSCULAR VOLUME 81.1 fl (80.0-96.0); MONO # 0.5 10^3/uL (0.0-0.8); MONO % 5.4 % (0.0-5.0); PLATELET COUNT, AUTOMATED 475 10^3/uL (150-450); RED BLOOD COUNT 3.86 10^6/uL (4.30-6.10); WHITE BLOOD COUNT 8.9 10^3/uL (4.0-10.0)
[2020-03-29 04:45] LABS: CALCIUM LEVEL 8.1 MG/DL (8.5-10.1); CREATININE FOR GFR 1.67 MG/DL (0.70-1.30); GLOMERULAR FILTRATION RATE 46.6 (>56); PHOSPHORUS LEVEL 3.8 MG/DL (2.5-4.9); POTASSIUM SERUM 4.4 MEQ/L (3.5-5.1)
[2020-03-29 05:58] LABS: VENOUS BASE EXCESS -5.4 (-2.0-2.0); VENOUS HCO3 19.6 MEQ/L (23.0-27.0); VENOUS O2 SATURATION 99.6 % (60.0-80.0); VENOUS PARTIAL PRESSURE CO2 35.9 mmHg (38.0-50.0); VENOUS PARTIAL PRESSURE O2 213.2 mmHg (30.0-50.0); VENOUS PH 7.354 UNITS (7.330-7.430); VENOUS STANDARD HCO3 20.1 MEQ/L; VENOUS TOTAL CO2 20.7 MEQ/L (24.0-28.0)
[2020-03-29] MEDS ORDERED: HEPARIN SOD (PORCINE) 5000UNITS/ML 1ML VIAL/SYRINGE SC SCH (06:00)
[2020-03-29 06:41] LABS: ALBUMIN 2.5 GM/DL (3.2-5.2); BILIRUBIN,TOTAL 0.3 MG/DL (0.2-1.0); CALCIUM LEVEL 8.4 MG/DL (8.5-10.1); CK-MB VALUE MASS 6.4 NG/ML (<3.6); CREATININE FOR GFR 1.66 MG/DL (0.70-1.30); GLOMERULAR FILTRATION RATE 46.9 (>56); MB/CK RELATIVE INDEX 5.12 (< OR =4); POTASSIUM SERUM 4.1 MEQ/L (3.5-5.1); TOTAL PROTEIN 6.7 GM/DL (6.4-8.2); TROPONIN I 2.21 NG/ML (< 0.10)
[2020-03-29] MEDS ORDERED: LEVEMIR (INSULIN DETEMIR) 1 UNITS/0.01ML As Ordered ONE (07:29)
[2020-03-29] MEDS ORDERED: LEVEMIR (INSULIN DETEMIR) 1 UNITS/0.01ML SC ONE (08:00)
[2020-03-29 08:35] LABS: CALCIUM LEVEL 8.4 MG/DL (8.5-10.1); CK-MB VALUE MASS 6.1 NG/ML (<3.6); CREATININE FOR GFR 1.43 MG/DL (0.70-1.30); GLOMERULAR FILTRATION RATE 55.7 (>56); MB/CK RELATIVE INDEX 4.73 (< OR =4); PHOSPHORUS LEVEL 2.3 MG/DL (2.5-4.9); TROPONIN I 2.33 NG/ML (< 0.10)
--- NOTE | 2020-03-29 08:45 | REPVR ---
PROCEDURE INFORMATION: Exam: XR Abdomen, 1 View Exam date and time: 03/29/2020 8:25 AM Age: 49 years old Clinical indication: Abdominal pain; Additional info: Sbo ? fistula TECHNIQUE: Imaging protocol: XR of the abdomen. Views: Frontal supine view of the abdomen. 1 View. COMPARISON: CT ABD PELVIS W/O CONTRAST 03/28/2020 10:54 PM FINDINGS: Gastrointestinal tract: Unremarkable. No bowel dilation. Bones/joints: No acute abnormality identified. Other findings: The diaphragm and uppermost abdomen are excluded. IMPRESSION: No acute abdominal or pelvic abnormality identified as visualized. Electronically signed by: Fritz Martinez On 03/29/2020 08:44:59 AM
[2020-03-29] MEDS: ASPIRIN 325 MG TAB PO SCH (08:51)
[2020-03-29 08:52] LABS: C REACTIVE PROTEIN QUANTITATIV 8.2 MG/DL (0.00-0.30)
[2020-03-29] MEDS: IRBESARTAN 150MG TAB PO SCH (08:53)
[2020-03-29] MEDS: FOLIC ACID 1 MG TAB PO SCH (08:53)
[2020-03-29] MEDS: GABAPENTIN 300 MG CAP PO SCH ×3 (08:54→20:56)
[2020-03-29] MEDS: ACAMPROSATE CALCIUM 333 MG TABLET (CAMPRAL) PO SCH ×2 (08:54→16:00)
[2020-03-29] MEDS: ATORVASTATIN 20 MG TAB PO SCH (08:55)
[2020-03-29] MEDS: ESCITALOPRAM OXALATE 10 MG TAB (LEXAPRO) PO SCH (08:55)
[2020-03-29] MEDS: MULTIVITAMINS/MINERALS THERAP 1 TAB PO SCH (08:55)
[2020-03-29] MEDS: lamoTRIgine 100MG TAB PO SCH (08:56)
[2020-03-29] MEDS: PANTOPRAZOLE 40MG TAB (PROTONIX) PO SCH (08:56)
[2020-03-29] MEDS: NICOTINE 14 MG/24 HR TRANSDERMAL TD SCH (08:57)
[2020-03-29] MEDS ORDERED: PANTOPRAZOLE 40MG VIAL (C9113 PER 1) IV SCH (09:00)
[2020-03-29] MEDS ORDERED: FLUBLOK(EGG FREE)(QUAD)INFLUENZA VACC 0.5ML SYRINGE 18YRS & OLDER IM SCH (09:00)
[2020-03-29 09:32] LABS: ERYTHROCYTE SEDIMENTATION RATE 77 mm/hr (0-20)
[2020-03-29] MEDS: POTASSIUM CHLORIDE INJ 10 MEQ in D5W/0.9% SODIUM CHLORIDE 1,000 ML IV SCH ×2 (09:35→17:20)
[2020-03-29] MEDS ORDERED: GLUCAGON INJ 1MG VIAL SC PRN (10:00)
[2020-03-29] MEDS ORDERED: GLUCOSE 4GM CHEW TABLET PO PRN (10:00)
[2020-03-29] MEDS ORDERED: DEXTROSE 50% 50 ML SYRINGE IV PRN (10:00)
[2020-03-29 10:57] LABS: CK-MB VALUE MASS 5.8 NG/ML (<3.6); MB/CK RELATIVE INDEX 4.87 (< OR =4); TROPONIN I 1.87 NG/ML (< 0.10)
[2020-03-29] MEDS: HumaLOG INSULIN (NovoLOG) PER UNIT SC SCH ×2 (12:52→17:42)
[2020-03-29 13:27] LABS: CK-MB VALUE MASS 5.3 NG/ML (<3.6); MB/CK RELATIVE INDEX 4.95 (< OR =4); TROPONIN I 1.61 NG/ML (< 0.10)
[2020-03-29] MEDS: ENOXAPARIN 80MG/0.8ML SYRINGE (J1650 PER 10MG) SC SCH (14:37)
--- NOTE | 2020-03-29 15:02 | IPNPDOC ---
Text Note Date of Service The patient was seen on 03/29/20. NOTE Patient seen and examined He is currently admitted in ICU for recent history of SVT. He had a CT abdomen and pelvis done showing post gastric bypass with fluid filled gastric pouch and gastric remnant raising possibility of fistula, obstruction. Patient reports no abdominal discomfort though he does report that he has been noticing black stools intermittently. He has had a gastric bypass x years and denies any problems with it. He has lost significant weight from it and denies any recent abnormal weight gain. Impression: gastric bypass status I reviewed the images on CT scan, suspicious for probable fistula which may cause him to regain weight, might put him at risk for peptic ulcer and anastomotic ulcer. This can be worked up as an outpatient after his cardiac status has stabilized. No emergent need for surgery. Correction of the gastro- gastric fistula only if causing above symptoms. Given he reports intermittent black stools, suggest PPI therapy, at least outpatient endoscopy. VS,Fishbone, I+O VS, Fishbone, I+O Laboratory Tests 03/28/20 20:14 03/28/20 23:43 03/29/20 04:05 03/29/20 05:50 03/29/20 07:53 Vital Signs Date Time Temp Pulse Resp B/P (MAP) Pulse Ox O2 Delivery O2 Flow Rate FiO2 03/29/20 14:30 98/57 (71) Room Air 03/29/20 12:00 97.6 92 18 98 I&O- Last 24 Hours up to 6 AM 03/29/20 05:59 Intake Total 4 ml Balance 4 ml ROSALBA MENDEZ MD Mar 29, 2020 15:02
[2020-03-29 17:56] LABS: CK-MB VALUE MASS 4.4 NG/ML (<3.6); MB/CK RELATIVE INDEX 4.89 (< OR =4); TROPONIN I 1.13 NG/ML (< 0.10)
[2020-03-29] MEDS: LEVEMIR (INSULIN DETEMIR) 1 UNITS/0.01ML SC SCH (20:57)
[2020-03-29] MEDS ORDERED: QUEtiapine FUMARATE 50 MG TAB PO SCH (21:00)
[2020-03-29] MEDS ORDERED: HumaLOG INSULIN (NovoLOG) PER UNIT SC SCH (21:00)
[2020-03-29] MEDS ORDERED: MIRTAZAPINE 15 MG TAB PO SCH (21:00)
[2020-03-29] MEDS ORDERED: ARIPiprazole 10 MG TAB PO SCH (21:00)
[2020-03-30] MEDS: DOXYCYCLINE HYCLATE 100 MG in D5W MINI-BAG PLUS 100 ML IV SCH ×2 (00:04→12:33)
[2020-03-30] MEDS: ENOXAPARIN 80MG/0.8ML SYRINGE (J1650 PER 10MG) SC SCH ×2 (01:04→14:00)
[2020-03-30] MEDS: POTASSIUM CHLORIDE INJ 10 MEQ in D5W/0.9% SODIUM CHLORIDE 1,000 ML IV SCH ×2 (01:04→08:18)
[2020-03-30 01:05] LABS: CK-MB VALUE MASS 3.5 NG/ML (<3.6); MB/CK RELATIVE INDEX 4.32 (< OR =4); TROPONIN I 0.7 NG/ML (< 0.10)
[2020-03-30 06:00] VITALS: BP 116/66
[2020-03-30 06:05] LABS: BASO % 0.7 % (0.0-1.0); EOS # 0.3 10^3/uL (0.0-0.5); EOS % 5.7 % (0.0-3.0); HEMATOCRIT 29.8 % (42.0-52.0); HEMOGLOBIN 9.2 g/dl (13.5-17.5); LYMPH # 1.9 10^3/uL (1.5-5.0); LYMPH % 42.1 % (24.0-44.0); MEAN CORPUSCULAR HEMOGLOBIN 24.9 pg (27.0-33.0); MEAN CORPUSCULAR HGB CONC 30.9 g/dl (32.0-36.5); MEAN CORPUSCULAR VOLUME 80.8 fl (80.0-96.0); MONO # 0.3 10^3/uL (0.0-0.8); MONO % 5.9 % (0.0-5.0); NEUTROPHILS % 45.6 % (36.0-66.0); PLATELET COUNT, AUTOMATED 404 10^3/uL (150-450); RED BLOOD COUNT 3.69 10^6/uL (4.30-6.10); WHITE BLOOD COUNT 4.4 10^3/uL (4.0-10.0)
[2020-03-30 06:46] LABS: ALT/SGPT 17 U/L (12-78); BILIRUBIN,TOTAL 0.2 MG/DL (0.2-1.0); BLOOD UREA NITROGEN 20 MG/DL (7-18); CALCIUM LEVEL 7.9 MG/DL (8.5-10.1); CARBON DIOXIDE LEVEL 24 MEQ/L (21-32); CHLORIDE LEVEL 113 MEQ/L (98-107); CK-MB VALUE MASS 2.9 NG/ML (<3.6); CPK CREATINE PHOSPHOKINASE 82 U/L (39-308); CREATININE FOR GFR 0.95 MG/DL (0.70-1.30); GLOMERULAR FILTRATION RATE > 60.0 (>56); GLUCOSE, FASTING 181 MG/DL (70-100); MB/CK RELATIVE INDEX 3.54 (< OR =4); POTASSIUM SERUM 4.4 MEQ/L (3.5-5.1); SODIUM LEVEL 141 MEQ/L (136-145); TOTAL PROTEIN 5.4 GM/DL (6.4-8.2); TROPONIN I 0.55 NG/ML (< 0.10)
[2020-03-30] MEDS: LEVEMIR (INSULIN DETEMIR) 1 UNITS/0.01ML SC SCH (08:18)
[2020-03-30] MEDS: HumaLOG INSULIN (NovoLOG) PER UNIT SC SCH ×2 (08:18→12:31)
[2020-03-30] MEDS: FOLIC ACID 1 MG TAB PO SCH (08:21)
[2020-03-30] MEDS: ESCITALOPRAM OXALATE 10 MG TAB (LEXAPRO) PO SCH (08:21)
[2020-03-30] MEDS: lamoTRIgine 100MG TAB PO SCH (08:21)
[2020-03-30] MEDS: ATORVASTATIN 20 MG TAB PO SCH (08:21)
[2020-03-30] MEDS: THIAMINE 100 MG TAB PO SCH (08:21)
[2020-03-30] MEDS: ASPIRIN 325 MG TAB PO SCH (08:21)
[2020-03-30 08:22] VITALS: BP 120/67
[2020-03-30] MEDS: MULTIVITAMINS/MINERALS THERAP 1 TAB PO SCH (08:22)
[2020-03-30] MEDS: PANTOPRAZOLE 40MG TAB (PROTONIX) PO SCH (08:22)
[2020-03-30] MEDS: IRBESARTAN 150MG TAB PO SCH (08:22)
[2020-03-30] MEDS: GABAPENTIN 300 MG CAP PO SCH (08:22)
[2020-03-30] MEDS: NICOTINE 14 MG/24 HR TRANSDERMAL TD SCH (08:23)
--- NOTE | 2020-03-30 10:59 | IPN ---
DATE: 03/29/2020 SUBJECTIVE: Patient seen and examined at the bedside. Chart has been reviewed. Patient has had elevation in troponin, thought to be due to supraventricular tachycardia (SVT). He currently denies any chest pain, pressure, or tightness, chest heaviness, nausea, vomiting, epigastric discomfort, diaphoresis, or shortness of breath. No other issues per RN overnight. OBJECTIVE: PHYSICAL EXAMINATION: VITAL SIGNS: Temperature 97.6, pulse 92, respiratory rate 18, blood pressure 117/59, 98% on room air. GENERAL: Awake, alert, oriented to person, place, and time, answering questions appropriately. No icterus, no jaundice. No use of respiratory accessory muscles. Speech is fluent. No jugular venous distention (JVD). No thyromegaly. No cervical lymphadenopathy. LUNGS: Clear to auscultation. No wheezing, rales, or rhonchi. HEART: S1, S2, sinus rhythm. ABDOMEN: Soft, nontender, nondistended. EXTREMITIES: No cyanosis, clubbing, or pitting edema. Skin has a faint erythematous rash on the right lower extremity. Left plantar surface there is a 2.5 cm wound, dry without any purulent drainage or significant erythema. LABORATORY DATA: White count 8.9, hemoglobin 9.5, hematocrit 31, platelet count 475. Sodium 141, potassium 4, chloride 110, bicarbonate 26, BUN 37, creatinine 1.43, glucose 110. Troponin 1.87, MB fraction 5.8. ASSESSMENT AND PLAN: This is a 49-year-old male with a history of type 1 diabetes, coronary artery disease (CAD), myocardial infarction ([place]), cerebrovascular accident (CVA), hypertension, bipolar disorder, suicidal ideation, insulin overdose, alcohol abuse, generalized anxiety disorder, and legally blind, who presented to the emergency room with complaints of chest tightness and dyspnea. Was found to be in supraventricular tachycardia (SVT) with rate of 160. Given adenosine, total of 18 mg. Prior to arrival in the emergency room (ER) another 12 mg with conversion to sinus rhythm and resolution of symptoms. Patient was admitted for diabetic ketoacidosis, status post insulin drip. Currently with closed anion gap. IMPRESSION: 1. Right lower extremity cellulitis. Patient's lactic acid was normal. He was placed on doxycycline, intravenous (IV) fluids. Blood cultures have been sent. A CT shows questionable fistula. General surgery has been consulted for management. 2. Diabetic ketoacidosis, resolved. Patient is off insulin drip. Started on Levemir insulin twice a day, sliding scale, and consistent-carbohydrate diet. Patient is medically stable for transfer to medical/surgical floor. 3. SVT, most likely secondary to sepsis and diabetic ketoacidosis (DKA). Patient did receive adenosine and amiodarone with resolution. 4. Abnormal cardiac markers. Rule out demand-mediated ischemia 5. Type 2 [id number] [place]. Continued on aspirin and statin. Started on Lovenox. Await cardiology recommendations and obtain 2D echo. 6. Acute kidney injury, on IV fluids. Monitoring improvement. Resolving slowly. 7. Coronary artery disease. Continue on aspirin and statin. Currently on Lovenox subcutaneous every 12 hours. 8. Hypertension, on irbesartan. 9. Bipolar disorder, on Abilify, Seroquel, Remeron, and Lamotrigine. 10. Generalized anxiety disorder, on chronic Lexapro. 11. Tobacco abuse. Nicotine patch. 12. Alcohol abuse. Clinical [place] Withdrawal Assessment (CIWA) protocol. DISPOSITION: Medically stable to transfer to medical/surgical floor. Continue on telemetry due to [id number] [place], type 2, demand mediated. MTDD
[2020-03-30 13:16] LABS: CK-MB VALUE MASS 2.3 NG/ML (<3.6); MB/CK RELATIVE INDEX 3.54 (< OR =4); TROPONIN I 0.52 NG/ML (< 0.10)
[2020-03-30] MEDS ORDERED: DOXY100C PO (15:23)
--- NOTE | 2020-03-30 15:28 | DS.PDOC ---
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 HOSPITAL COURSE: This is a 49-year-old male with a history of type 1 diabetes, coronary artery disease (CAD), myocardial infarction ([place]), cerebrovascular accident (CVA), hypertension, bipolar disorder, suicidal ideation, insulin overdose, alcohol abuse, generalized anxiety disorder, and legally blind, who presented to the emergency room with complaints of chest tightness and dyspnea. Was found to be in supraventricular tachycardia (SVT) with rate of 160. Given adenosine, total of 18 mg. Prior to arrival in the emergency room (ER) another 12 mg with conversion to sinus rhythm and resolutionof symptoms. Patient was admitted for diabetic ketoacidosis, status post insulindrip left foot arterial ulcer, nonhealing. to complete 7days doxycycline. daily dressing changes. outpt fu w dr. smith. Diabetic ketoacidosis, resolved. Patient is off insulin drip. Started on Levemir insulin twice a day, sliding scale, and consistent-carbohydrate diet. SVT, most likely secondary to sepsis and diabetic ketoacidosis (DKA). Patient did receive adenosine and amiodarone with resolution. Abnormal cardiac markers. Type 2 oro-CO-mjqtqeggx [place]. Continued on aspirin and statin. Started on Lovenox 1mg/kg sq q12h. asx. outpt cardiac stress test Acute kidney injury, resolved on IV fluids. Coronary artery disease. Continue on aspirin and statin. Hypertension, on irbesartan. Bipolar disorder, on Abilify, Seroquel, Remeron, and Lamotrigine. Generalized anxiety disorder, on chronic Lexapro. Tobacco abuse. Nicotine patch. Alcohol abuse. Clinical [place] Withdrawal Assessment (CIWA) protocol. DISCHARGE PHYSICAL EXAMINATION VITALS:SEE BELOW GENERAL: Awake, alert, oriented to person, place, and time, answering questions appropriately. No icterus, no jaundice. No use of respiratory accessory muscles.Speech is fluent. No jugular venous distention (JVD). No thyromegaly. No cervical lymphadenopathy. LUNGS: Clear to auscultation. No wheezing, rales, or rhonchi. HEART: S1, S2, sinus rhythm. ABDOMEN: Soft, nontender, nondistended. EXTREMITIES: No cyanosis, clubbing, or pitting edema. Skin has a faint erythematous rash on the right lower extremity. Left plantar surface there is a 2.5 cm wound, dry without any purulent drainage or significant erythema. DISCHARGE LABORATORY DATA: PLS SEE BELOW IMAGING STUDIES, MICROBIOLOGY: SEE BELOW TIME SPENT ON DISCHARGE: 30 MIN Vital Signs/I&Os Vital Signs Date Time Temp Pulse Resp B/P (MAP) Pulse Ox O2 Delivery O2 Flow Rate FiO2 03/30/20 08:22 120/67 03/30/20 06:00 97.8 78 16 95 Room Air I&O- Last 24 Hours up to 6 AM 03/30/20 06:00 Intake Total 4012 ml Output Total 1075 ml Balance 2937 ml Laboratory Data Labs 24H Laboratory Tests 2 03/29/20 16:41: Bedside Glucose (Misc Panel) 180H 03/29/20 17:01: Total Creatine Kinase 90, Creatine Kinase MB 4.4H, Creatine Kinase MB Relative Index 4.89H, Troponin I 1.13#H 03/29/20 20:05: Bedside Glucose (Misc Panel) 281H 03/30/20 00:08: Total Creatine Kinase 81, Creatine Kinase MB 3.5, Creatine Kinase MB Relative Index 4.32H, Troponin I 0.70#H 03/30/20 05:31: Immature Granulocyte % (Auto) 0.0, Neutrophils (%) (Auto) 45.6, Lymphocytes (%) (Auto) 42.1, Monocytes (%) (Auto) 5.9H, Eosinophils (%) (Auto) 5.7H, Basophils (%) (Auto) 0.7, Neutrophils # (Auto) 2.0, Lymphocytes # (Auto) 1.9, Monocytes # (Auto) 0.3, Eosinophils # (Auto) 0.3, Basophils # (Auto) 0.0, Nucleated Red Blood Cells % (auto) 0.0, Anion Gap 4L, Glomerular Filtration Rate > 60.0, Calcium Level 7.9L, Total Bilirubin 0.2, Aspartate Amino Transf (AST/SGOT) 26, Alanine Aminotransferase (ALT/SGPT) 17, Alkaline Phosphatase 160H, Total Creatine Kinase 82, Creatine Kinase MB 2.9, Creatine Kinase MB Relative Index 3.54, Troponin I 0.55#H, Total Protein 5.4L, Albumin 2.0L, Albumin/Globulin Ratio 0.6 03/30/20 11:35: Bedside Glucose (Misc Panel) 211H 03/30/20 12:32: Total Creatine Kinase 65, Creatine Kinase MB 2.3, Creatine Kinase MB Relative Index 3.54, Troponin I 0.52H CBC/BMP Laboratory Tests 03/30/20 05:31 FSBS Laboratory Tests Test 03/29/20 16:41 03/29/20 20:05 03/30/20 11:35 Range/Units Bedside Glucose (Misc Panel) 180 281 211 70-105 MG/DL Microbiology Microbiology 03/28/20 Blood Culture - Preliminary, Resulted No growth after 24 hours . All specim... 03/28/20 Blood Culture - Preliminary, Resulted No growth after 24 hours . All specim... Discharge Medications Scheduled Acamprosate Calcium (Acamprosate Calcium) 333 Mg Tablet.dr, 666 MG PO TID, (Reported) Aripiprazole (Abilify) 20 Mg Tablet, 20 MG PO QHS, (Reported) Aripiprazole (Aripiprazole) 5 Mg Tablet, 5 MG PO DAILY, (Reported) Aspirin (Aspirin) 325 Mg Tab, 325 MG PO DAILY, (Reported) Atorvastatin Calcium (Atorvastatin Calcium) 40 Mg Tab, 40 MG PO DAILY, (Reported) Cholecalciferol (Vitamin D3) (Vitamin D3) 1,000 Unit Tablet, 3,000 UNITS PO DAILY, (Reported) Cyanocobalamin (Vitamin B-12) (Vitamin B-12) 1,000 Mcg Tablet, 1,000 MCG PO DAILY, (Reported) Doxycycline Hyclate (Doxycycline Hyclate) 100 Mg Capsule, 100 MG PO BID Escitalopram Oxalate (Escitalopram Oxalate) 10 Mg Tablet, 10 MG PO DAILY, (Reported) Gabapentin (Gabapentin) 600 Mg Tablet, 600 MG PO TID, (Reported) Insulin Detemir (Levemir) 100 Unit/1 Ml Vial, 35 UNITS SC QHS, (Reported) Insulin Lispro (Humalog Kwikpen U-100) 100 Unit/1 Ml Insuln.pen, 1 DOSE SC AC, (Reported) PER SLIDING SCALE Irbesartan (Irbesartan) 150 Mg Tablet, 75 MG PO DAILY, (Reported) Lamotrigine (Lamotrigine) 100 Mg Tablet, 100 MG PO DAILY, (Reported) Mirtazapine (Remeron) 30 Mg Tablet, 30 MG PO QHS, (Reported) Pantoprazole Sodium (Pantoprazole Sodium) 40 Mg Tablet.dr, 40 MG PO DAILY, (Reported) Quetiapine Fumarate (Quetiapine Fumarate) 50 Mg Tablet, 50 MG PO QHS, (Reported) Scheduled PRN Nicotine Polacrilex (Nicotine Gum) 4 Mg Gum, 4 MG PO Q4H PRN for SMOKING CESSATION, (Reported) Allergies Coded Allergies: No Known Allergies (Unverified , 03/11/20) SUZANNE MILLS MD Mar 30, 2020 15:17
--- NOTE | 2020-04-01 14:57 | ECGEPIP ---
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
--- NOTE | 2020-04-03 08:49 | ECHO ---
DATE OF PROCEDURE: 03/29/2020 Age: 49 REFERRING PROVIDER: Randa Faulkner MD PATIENT LOCATION: Room 3207 REASON FOR STUDY: Acute myocardial infarction (AMI). 2D MEASUREMENTS: IVS 1.6 cm LV 4.4 cm LVPW 1.4 cm LA 4.1 cm Aorta 3.6 cm IVC 2.3 cm DOPPLER MEASUREMENT Peak velocity across the aortic valve 1.7 mm/s Peak velocity across the LVOT 1.2 mm/s Mitral E 0.94 Mitral A 0.81 with a ratio of 1.2 Maximum tricuspid valve velocity 2.4 mm/s 2D COMMENTS: 1. Mildly increased left ventricular wall thickness with normal left ventricular size and a normal left ventricular systolic function with a hyperdynamic left ventricle. The estimated left ventricular systolic ejection fraction is 65% to 70%. 2. Mildly enlarged left atrium. Normal right atrium and right ventricle. 3. The atrial septum appeared to be normal without evidence for defect or shunt. 4. Dorothy aortic root. 5. Mildly calcified aortic valve with normal leaflet excursion. Normal mitral valve, tricuspid valve, and pulmonic valve. The proximal pulmonary artery branches also appear to be normal. 6. The inferior vena cava was mildly enlarged, central venous pressure mildly elevated. 7. Doppler detects trace mitral regurgitation, trace tricuspid regurgitation. Abnormal relaxation pattern was noted across the mitral valve annulus consistent with features of grade 2 left ventricular diastolic dysfunction. IMPRESSION: 1. Normal left ventricular systolic function with a hyperdynamic left ventricle and mild concentric left ventricular hypertrophy. There are some features of left ventricular diastolic dysfunction grade 2. 2. Aortic valve sclerosis with trivial aortic stenosis, but no aortic regurgitation. 3. Trace mitral regurgitation with a mildly enlarged left atrium. 4. Trace tricuspid regurgitation with probably mild pulmonary hypertension. MTDD
--- NOTE | 2020-04-08 19:41 | ECGEPIP ---
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
== END 2020-03-30 16:35 | disposition home or self-care (01) | DRG 871 ==
LOC: M ED 19:43 → M ED INP 22:25 → ENRESERV 22:41 → M ICU 03-29 00:06 → M MSPAV 03-29 15:00
PROVIDERS: ADMIT Internal Medicine; ATTEND General Practice
DX: A41.9 Sepsis, unspecified organism (principal); E10.10 Type 1 diabetes mellitus with ketoacidosis without coma; L03.115 Cellulitis of right lower limb; I47.1 Supraventricular tachycardia; N17.9 Acute kidney failure, unspecified; F31.81 Bipolar II disorder; R45.851 Suicidal ideations; I20.9 Angina pectoris, unspecified; F10.10 Alcohol abuse, uncomplicated; H54.8 Legal blindness, as defined in USA; Z86.73 Personal history of transient ischemic attack (TIA), and cerebral infarction without residual deficits; I10 Essential (primary) hypertension; F41.1 Generalized anxiety disorder; Z79.82 Long term (current) use of aspirin; Z79.4 Long term (current) use of insulin; I25.2 Old myocardial infarction; E83.39 Other disorders of phosphorus metabolism; E10.40 Type 1 diabetes mellitus with diabetic neuropathy, unspecified; Z79.899 Other long term (current) drug therapy

== ENCOUNTER 2020-04-02 21:44 | Emergency (ER) | payer MEDICARE ==
[~2020-04-02] VITALS: Ht 177.8 cm; Wt 85.0 kg
[~2020-04-02 21:44] MED LIST changes: +DOXY100C PO; +[UNRECOGNIZED DRUG - CODE] PO
[2020-04-02] MEDS ORDERED: KETOROLAC 30 MG/ML 1ML VIAL IM ONE (22:45)
[2020-04-02 22:46] VITALS: BP 128/66
--- NOTE | 2020-04-02 23:21 | REPVR ---
PROCEDURE INFORMATION: Exam: XR Right Ankle Exam date and time: 04/02/2020 10:43 PM Age: 49 years old Clinical indication: Pain; Ankle; Right TECHNIQUE: Imaging protocol: XR Right ankle. Views: 3 or more views. COMPARISON: CR Foot, complete 06/14/2016 6:14 PM FINDINGS: Bones/joints: There is an impacted fracture of the navicular. Some heterotopic ossification is present around the navicular fracture. The cuboid also appears irregular and inferiorly subluxed. Alignment at the ankle is normal. Ankle mortise is unremarkable. Soft tissues: Generalized soft tissue swelling at the ankle. IMPRESSION: Impacted fractures of the navicular and cuboid with inferior displacement of the cuboid on the lateral view. Electronically signed by: David Obando On 04/02/2020 23:21:21 PM
--- NOTE | 2020-04-02 23:23 | REPVR ---
PROCEDURE INFORMATION: Exam: XR Right Foot Complete Exam date and time: 04/02/2020 10:43 PM Age: 49 years old Clinical indication: Pain; Foot; Right TECHNIQUE: Imaging protocol: XR Right foot. Views: 3 or more views. COMPARISON: CR Foot, complete 06/14/2016 6:14 PM FINDINGS: Bones/joints: There are impacted fractures of the navicular and cuboid. Heterotopic ossification is present around the navicular fracture. The cuboid is inferiorly subluxed on the lateral view. Ankle mortise is unremarkable. 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 Soft tissues: Generalized soft tissue swelling in the foot. IMPRESSION: Impacted fractures of the navicular and cuboid with inferior subluxation of the cuboid. Electronically signed by: David Obando On 04/02/2020 23:22:54 PM
--- NOTE | 2020-04-02 23:24 | REPVR ---
PROCEDURE INFORMATION: Exam: US Duplex Right Lower Extremity Veins, Limited Exam date and time: 04/02/2020 11:18 PM Age: 49 years old Clinical indication: Pain; Edema, localized; Lower extremity, right; Leg, upper and leg, lower and foot; Additional info: Swelling, recent hospitalization TECHNIQUE: Imaging protocol: Real-time Duplex ultrasound of the Right Lower Extremity with 2-D wade scale, color Doppler flow and spectral waveform analysis with image documentation. Limited exam was focused on the right lower extremity veins. COMPARISON: US Duplex, Ext,LOWER veins,unilat RIGHT 03/28/2020 11:49 PM FINDINGS: Right deep veins: Unremarkable. The common femoral, femoral, proximal profunda femoral and popliteal veins are patent without thrombus. Normal Doppler waveforms. Normal compressibility and/or augmentation response. Right superficial veins: Unremarkable. Saphenofemoral junction is patent without thrombus. Soft tissues: Unremarkable. Lymph nodes: Mildly enlarged lymph nodes in the right groin. IMPRESSION: 1. No DVT. 2. Mildly enlarged lymph nodes in the groin. Electronically signed by: David Obando On 04/02/2020 23:24:45 PM
[2020-04-02] MEDS ORDERED: KETO10TAB PO (23:56)
== END 2020-04-03 00:25 | disposition home or self-care (01) ==
LOC: M ED 21:44
DX: S92.251A Displaced fracture of navicular [scaphoid] of right foot, initial encounter for closed fracture (principal); S92.214A Nondisplaced fracture of cuboid bone of right foot, initial encounter for closed fracture; E11.9 Type 2 diabetes mellitus without complications; F17.200 Nicotine dependence, unspecified, uncomplicated; Z79.82 Long term (current) use of aspirin; Z79.4 Long term (current) use of insulin; Z79.899 Other long term (current) drug therapy; Y92.9 Unspecified place or not applicable; Y93.9 Activity, unspecified; Y99.9 Unspecified external cause status
CPT/HCPCS: 73610; 73630; 93971; 96372; 99282; J1885

== ENCOUNTER 2020-04-13 17:47 | Emergency (ER) | payer MEDICARE ==
[~2020-04-13] VITALS: Ht 177.8 cm; Wt 86.4 kg
[2020-04-13 17:47] VITALS: BP 130/80
[~2020-04-13 17:47] MED LIST changes: +KETO10TAB PO
== END 2020-04-13 21:19 | disposition left against medical advice (07) ==
LOC: M ED 17:47
DX: Z53.21 Procedure and treatment not carried out due to patient leaving prior to being seen by health care provider (principal)

== ENCOUNTER → 2020-04-24 | Outpatient (REF) | payer MEDICARE ==
[2020-04-24 18:08] LABS: BASO % 0.6 % (0.0-1.0); EOS # 0.3 10^3/uL (0.0-0.5); EOS % 3.7 % (0.0-3.0); HEMATOCRIT 31.6 % (42.0-52.0); HEMOGLOBIN 9.5 g/dl (13.5-17.5); LYMPH # 1.2 10^3/uL (1.5-5.0); LYMPH % 17.5 % (24.0-44.0); MEAN CORPUSCULAR HEMOGLOBIN 24.3 pg (27.0-33.0); MEAN CORPUSCULAR HGB CONC 30.1 g/dl (32.0-36.5); MEAN CORPUSCULAR VOLUME 80.8 fl (80.0-96.0); MONO # 0.5 10^3/uL (0.0-0.8); MONO % 7.3 % (0.0-5.0); NEUTROPHILS % 70.5 % (36.0-66.0); PLATELET COUNT, AUTOMATED 490 10^3/uL (150-450); RED BLOOD COUNT 3.91 10^6/uL (4.30-6.10); WHITE BLOOD COUNT 7.1 10^3/uL (4.0-10.0)
[2020-04-24 18:14] LABS: ALBUMIN 2.7 GM/DL (3.2-5.2); ALT/SGPT 19 U/L (12-78); BILIRUBIN,TOTAL 0.1 MG/DL (0.2-1.0); BLOOD UREA NITROGEN 17 MG/DL (7-18); C REACTIVE PROTEIN QUANTITATIV 7.33 MG/DL (0.00-0.30); CALCIUM LEVEL 8.9 MG/DL (8.5-10.1); CARBON DIOXIDE LEVEL 27 MEQ/L (21-32); CHLORIDE LEVEL 104 MEQ/L (98-107); CREATININE FOR GFR 0.93 MG/DL (0.70-1.30); GLOMERULAR FILTRATION RATE > 60.0 (>56); GLUCOSE, FASTING 175 MG/DL (70-100); POTASSIUM SERUM 3.9 MEQ/L (3.5-5.1); SODIUM LEVEL 138 MEQ/L (136-145); TOTAL PROTEIN 6.8 GM/DL (6.4-8.2); VANCOMYCIN LEVEL TROUGH 8.3 UG/ML (10.0-20.0)
[2020-04-24 18:38] LABS: ERYTHROCYTE SEDIMENTATION RATE 77 mm/hr (0-20)
== END ==
LOC: M LAB REF 16:38
PROVIDERS: ATTEND Internal Medicine
DX: M86.9 Osteomyelitis, unspecified (principal); Z79.2 Long term (current) use of antibiotics

== ENCOUNTER → 2020-05-02 | Outpatient (REF) | payer MEDICARE ==
[2020-05-02 17:42] LABS: BASO # 0.1 10^3/uL (0.0-0.2); BASO % 1.4 % (0.0-1.0); EOS # 0.4 10^3/uL (0.0-0.5); EOS % 6.3 % (0.0-3.0); HEMATOCRIT 31.5 % (42.0-52.0); HEMOGLOBIN 9.5 g/dl (13.5-17.5); LYMPH # 1.3 10^3/uL (1.5-5.0); MEAN CORPUSCULAR HEMOGLOBIN 24.2 pg (27.0-33.0); MEAN CORPUSCULAR HGB CONC 30.2 g/dl (32.0-36.5); MEAN CORPUSCULAR VOLUME 80.2 fl (80.0-96.0); MONO # 0.5 10^3/uL (0.0-0.8); MONO % 7.3 % (0.0-5.0); NEUTROPHILS # 4.7 10^3/uL (1.5-8.5); NEUTROPHILS % 66.9 % (36.0-66.0); PLATELET COUNT, AUTOMATED 464 10^3/uL (150-450); RED BLOOD COUNT 3.93 10^6/uL (4.30-6.10)
[2020-05-02 18:13] LABS: ALBUMIN 2.7 GM/DL (3.2-5.2); ALT/SGPT 29 U/L (12-78); BILIRUBIN,TOTAL 0.1 MG/DL (0.2-1.0); BLOOD UREA NITROGEN 14 MG/DL (7-18); CALCIUM LEVEL 8.6 MG/DL (8.5-10.1); CARBON DIOXIDE LEVEL 28 MEQ/L (21-32); CHLORIDE LEVEL 108 MEQ/L (98-107); CREATININE FOR GFR 0.69 MG/DL (0.70-1.30); GLOMERULAR FILTRATION RATE > 60.0 (>56); GLUCOSE, FASTING 44 MG/DL (70-100); POTASSIUM SERUM 4.5 MEQ/L (3.5-5.1); SODIUM LEVEL 141 MEQ/L (136-145); TOTAL PROTEIN 6.9 GM/DL (6.4-8.2); VANCOMYCIN LEVEL TROUGH 6.6 UG/ML (10.0-20.0)
[2020-05-02 19:02] LABS: ERYTHROCYTE SEDIMENTATION RATE 63 mm/hr (0-20)
== END ==
LOC: M LAB REF 17:18
PROVIDERS: ATTEND Internal Medicine
DX: M86.9 Osteomyelitis, unspecified (principal); Z79.2 Long term (current) use of antibiotics

== ENCOUNTER → 2020-05-08 | Outpatient (REF) | payer MEDICARE ==
[2020-05-08 17:44] LABS: BASO # 0.1 10^3/uL (0.0-0.2); BASO % 1.6 % (0.0-1.0); EOS # 0.4 10^3/uL (0.0-0.5); EOS % 7.6 % (0.0-3.0); HEMATOCRIT 33.4 % (42.0-52.0); LYMPH # 1.5 10^3/uL (1.5-5.0); LYMPH % 29.7 % (24.0-44.0); MEAN CORPUSCULAR HEMOGLOBIN 23.7 pg (27.0-33.0); MEAN CORPUSCULAR HGB CONC 29.9 g/dl (32.0-36.5); MEAN CORPUSCULAR VOLUME 79.1 fl (80.0-96.0); MONO # 0.5 10^3/uL (0.0-0.8); MONO % 9.6 % (0.0-5.0); NEUTROPHILS # 2.6 10^3/uL (1.5-8.5); NEUTROPHILS % 51.1 % (36.0-66.0); PLATELET COUNT, AUTOMATED 547 10^3/uL (150-450); RED BLOOD COUNT 4.22 10^6/uL (4.30-6.10)
[2020-05-08 17:50] LABS: ALBUMIN 3.1 GM/DL (3.2-5.2); ALT/SGPT 30 U/L (12-78); BILIRUBIN,TOTAL 0.3 MG/DL (0.2-1.0); BLOOD UREA NITROGEN 27 MG/DL (7-18); C REACTIVE PROTEIN QUANTITATIV 5.84 MG/DL (0.00-0.30); CALCIUM LEVEL 9.3 MG/DL (8.5-10.1); CARBON DIOXIDE LEVEL 31 MEQ/L (21-32); CHLORIDE LEVEL 104 MEQ/L (98-107); CREATININE FOR GFR 1.21 MG/DL (0.70-1.30); GLOMERULAR FILTRATION RATE > 60.0 (>56); GLUCOSE, FASTING 74 MG/DL (70-100); POTASSIUM SERUM 4.4 MEQ/L (3.5-5.1); SODIUM LEVEL 139 MEQ/L (136-145); TOTAL PROTEIN 7.5 GM/DL (6.4-8.2); VANCOMYCIN LEVEL TROUGH 18.6 UG/ML (10.0-20.0)
[2020-05-08 19:03] LABS: ERYTHROCYTE SEDIMENTATION RATE 68 mm/hr (0-20)
== END ==
LOC: M LAB REF 16:05
PROVIDERS: ATTEND Internal Medicine
DX: M86.9 Osteomyelitis, unspecified (principal); Z79.2 Long term (current) use of antibiotics

== ENCOUNTER → 2020-05-22 | Outpatient (REF) | payer MEDICARE ==
[2020-05-22 17:16] LABS: BASO # 0.1 10^3/uL (0.0-0.2); BASO % 1.3 % (0.0-1.0); EOS # 0.4 10^3/uL (0.0-0.5); EOS % 6.7 % (0.0-3.0); HEMATOCRIT 37.2 % (42.0-52.0); LYMPH # 1.1 10^3/uL (1.5-5.0); LYMPH % 18.7 % (24.0-44.0); MEAN CORPUSCULAR HEMOGLOBIN 23.6 pg (27.0-33.0); MEAN CORPUSCULAR HGB CONC 29.6 g/dl (32.0-36.5); MEAN CORPUSCULAR VOLUME 79.7 fl (80.0-96.0); MONO # 0.5 10^3/uL (0.0-0.8); MONO % 7.7 % (0.0-5.0); NEUTROPHILS % 65.1 % (36.0-66.0); PLATELET COUNT, AUTOMATED 479 10^3/uL (150-450); RED BLOOD COUNT 4.67 10^6/uL (4.30-6.10); WHITE BLOOD COUNT 6.1 10^3/uL (4.0-10.0)
[2020-05-22 18:02] LABS: ALBUMIN 3.3 GM/DL (3.2-5.2); BILIRUBIN,TOTAL 0.3 MG/DL (0.2-1.0); C REACTIVE PROTEIN QUANTITATIV 1.14 MG/DL (0.00-0.30); CALCIUM LEVEL 8.5 MG/DL (8.5-10.1); CREATININE FOR GFR 1.35 MG/DL (0.70-1.30); GLOMERULAR FILTRATION RATE 59.6 (>56); TOTAL PROTEIN 7.3 GM/DL (6.4-8.2); VANCOMYCIN LEVEL TROUGH 15.9 UG/ML (10.0-20.0)
[2020-05-22 19:05] LABS: ERYTHROCYTE SEDIMENTATION RATE 43 mm/hr (0-20)
== END ==
LOC: M LAB REF 15:39
PROVIDERS: ATTEND Internal Medicine
DX: M86.9 Osteomyelitis, unspecified (principal); Z79.2 Long term (current) use of antibiotics

== ENCOUNTER → 2020-09-08 | Outpatient (REF) | payer MEDICARE, MEDICAID ==
[~2020-09-08] MED LIST changes: +ASPI325T42 PO; +BUSP10TA PO; +CEPH500T PO; +ESCI10TA16 PO; -ESCI10TA2 PO; +ESCI5SOL3 PO; +FERR325T3 PO; +GABA-282 PO; -GABA-843 PO; +HYDR-4571 PO; +MIRT-60 PO; +MIRT-62 PO; +PATIENT COMMENT; -QUET1TAB7; -QUET1TAB7 PO; +QUET25TA3; +QUET25TA3 PO; +QUET50TA3 PO; -QUET5TAB PO; -REME15TA PO; -REME30TA PO; +ROPI2TAB3 PO; +ROPI4TAB3 PO
== END ==
LOC: M LAB REF 11:34
PROVIDERS: ATTEND Physician Assistant
DX: L97.522 Non-pressure chronic ulcer of other part of left foot with fat layer exposed (principal)

== ENCOUNTER → 2020-09-29 | Outpatient (CLI) | payer MEDICARE, MEDICAID | LOC: M LABSMTC 11:42 | PROVIDERS: ATTEND Anesthesiology | DX: Z01.812 Encounter for preprocedural laboratory examination (principal); Z20.822 Contact with and (suspected) exposure to COVID-19; L97.522 Non-pressure chronic ulcer of other part of left foot with fat layer exposed | CPT/HCPCS: 11042; U0003 ==

== ENCOUNTER 2020-10-04 11:43 | Day surgery (SDC) | payer MEDICARE, MEDICAID ==
[~2020-10-04] VITALS: Ht 177.8 cm; Wt 88.5 kg
[~2020-10-04 11:43] MED LIST changes: -ASPI325T42 PO; +BUPIVACAINE HCL 0.5% 10ML VIAL As Ordered ONE; -BUSP10TA PO; -CEPH500T PO; -FERR325T3 PO; -HYDR-4571 PO; +LIDOCAINE 1% MDV 20ML VIAL As Ordered ONE; +LR 1,000 ML IV ONE; -PATIENT COMMENT; -ROPI2TAB3 PO; +ceFAZolin SOD 2 GM in IV 1 EA IV ONE; +dexameTHASONE 4 MG/ML 1ML VIAL (J1100 PER 1MG) As Ordered ONE
[2020-10-04] MEDS ORDERED: propofoL 200 MG/20 ML VIAL As Ordered ONE (12:03)
[2020-10-04] MEDS ORDERED: METOCLOPRAMIDE INJ 10MG/2ML VIAL (J2765 PER 1) As Ordered ONE (12:03)
[2020-10-04] MEDS ORDERED: LIDOCAINE 2% 100MG/5ML SDV (FOR ANES.) As Ordered ONE (12:03)
[2020-10-04] MEDS ORDERED: ONDANSETRON 4MG/2ML VIAL As Ordered ONE (12:03)
[2020-10-04] MEDS ORDERED: KETOROLAC 60MG 2ML VIAL As Ordered ONE (12:03)
[2020-10-04] MEDS ORDERED: fentaNYL 100 MCG/2 ML INJECTION (J3010) As Ordered ONE (12:03)
[2020-10-04] MEDS ORDERED: MIDAZOLAM INJ 2MG/2ML VIAL (J2250 PER 1MG) As Ordered ONE (12:03)
[2020-10-04] MEDS ORDERED: dexameTHASONE 4 MG/ML 1ML VIAL (J1100 PER 1MG) As Ordered ONE (12:03)
[2020-10-04] MEDS ORDERED: HumuLIN R (REGULAR) INSULIN (NovoLIN R) **100U/ML** PER UNIT SC ONE ×2 (12:35→12:40)
[2020-10-04] MEDS ORDERED: HumaLOG INSULIN (NovoLOG) PER UNIT SC ONE ×2 (13:00)
[2020-10-04] MEDS ORDERED: ACETAMINOPHEN 1000MG 100ML IV BTL (OFIRMEV) (J0131 PER 10MG) As Ordered ONE (13:32)
[2020-10-04] MEDS ORDERED: BACT800T5 PO (14:08)
[2020-10-04] MEDS ORDERED: CEPH500T PO (14:10)
[2020-10-04] MEDS ORDERED: PERCOCET 5MG/325MG TAB PO PRN (14:30)
[2020-10-04] MEDS ORDERED: LR 1,000 ML IV SCH (14:30)
[2020-10-04] MEDS ORDERED: ONDANSETRON 4MG/2ML VIAL IV PRN (14:30)
[2020-10-04 14:55] VITALS: BP 134/74
--- NOTE | 2020-10-04 20:09 | RO ---
OPERATIVE NOTE DATE OF OPERATION: 10/04/2020 PREOPERATIVE DIAGNOSIS: Left foot chronic ulcer. POSTOPERATIVE DIAGNOSIS: Left foot chronic ulcer. PROCEDURE: Left foot first metatarsal head excision. SURGEON: Paul Devi DPM SCIENTIFIC PHOTOGRAPHER: None. ANESTHESIA: Monitored anesthesia care; preop injection of 17 mL 1:1 mix of 1% Lidocaine plain and 0.5% Marcaine plain. ESTIMATED BLOOD LOSS: Minimal. MATERIALS: 3-0 and 4-0 Vicryl, 4-0 nylon. INJECTABLES: None. COMPLICATIONS: None. SPECIMEN: Left first metatarsal head. INDICATIONS: Del Rust is a 49-year-old male who has chronic ulceration of his left first metatarsal. He has undergone conservative care over several years with recurrence of the wound. He presents today for excision of the metatarsal head. The patient's site and side were identified and marked preoperatively. Consent was reviewed and obtained. All risks, complications and alternatives to the procedure were explained to the patient in detail, all questions were answered. DESCRIPTION OF PROCEDURE: The patient was brought to the operating room and placed on the operating table in supine position. Monitored anesthesia care was delivered by the anesthesia team. Preop injection of 17 mL of 1:1 mix of 1% Lidocaine plain and 0.5% Marcaine plain was injected in the left foot. The left foot was prepped and draped in normal sterile fashion. Tourniquet was applied to the left ankle and inflated to 250 mmHg. There was a wound under the fist metatarsal head on the left foot. There was an incision made over the first metatarsal head with a #15 blade. Dissection was carried until the joint was identified. A linear capsulotomy was exposed exposing the metatarsal head. Soft tissue attachments were released using the McGlamry elevator and osteotomy was performed at the metatarsal neck and the ___ was excised in total. The remaining sesamoids were also excised using a #15 blade and tenotomy scissors. These were sent for pathology. The site was irrigated with normal saline. Closure was performed with 3-0 Vicryl, 4-0 Vicryl and skin closure with 4-0 nylon. Sterile dressings were applied. Tourniquets were deflated. The patient was brought to PACU with vital signs stable and neurovascular status intact. He will be partial weightbearing and follow up in the office in two days.
== END 2020-10-04 15:38 | disposition home or self-care (01) ==
LOC: M SDC 11:43
PROVIDERS: ATTEND Podiatrist Foot & Ankle Surgery
DX: M86.172 Other acute osteomyelitis, left ankle and foot (principal); L97.529 Non-pressure chronic ulcer of other part of left foot with unspecified severity; E78.49 Other hyperlipidemia; I25.2 Old myocardial infarction; I10 Essential (primary) hypertension; Z86.73 Personal history of transient ischemic attack (TIA), and cerebral infarction without residual deficits; I25.10 Atherosclerotic heart disease of native coronary artery without angina pectoris; Z79.4 Long term (current) use of insulin; E11.9 Type 2 diabetes mellitus without complications; Z79.899 Other long term (current) drug therapy; Z98.84 Bariatric surgery status; G47.00 Insomnia, unspecified; K21.9 Gastro-esophageal reflux disease without esophagitis; E55.9 Vitamin D deficiency, unspecified; G25.81 Restless legs syndrome; Z79.82 Long term (current) use of aspirin; F10.21 Alcohol dependence, in remission
CPT/HCPCS: 28111; 88304; 88311; 99283; J0131; J0690; J1100; J1885; J2250; J2405; J2765; J3010

== ENCOUNTER 2020-10-04 18:40 | Emergency (ER) | payer MEDICARE, MEDICAID ==
[~2020-10-04] VITALS: Ht 177.8 cm; Wt 88.6 kg
[~2020-10-04 18:40] MED LIST changes: -BUPIVACAINE HCL 0.5% 10ML VIAL As Ordered ONE; +CEPH500T PO; -LIDOCAINE 1% MDV 20ML VIAL As Ordered ONE; -LR 1,000 ML IV ONE; -ceFAZolin SOD 2 GM in IV 1 EA IV ONE; -dexameTHASONE 4 MG/ML 1ML VIAL (J1100 PER 1MG) As Ordered ONE
[2020-10-04] MEDS ORDERED: NORCO, ANEXSIA 5/325MG TABLET (HYDROcodone/ACETAMINOPHEN) PO ONE (20:40)
[2020-10-04 21:11] VITALS: BP 150/88
== END 2020-10-04 21:11 | disposition home or self-care (01) ==
LOC: M ED 18:40
DX: L76.22 Postprocedural hemorrhage of skin and subcutaneous tissue following other procedure (principal); R42 Dizziness and giddiness; E11.9 Type 2 diabetes mellitus without complications; Z98.84 Bariatric surgery status; H54.8 Legal blindness, as defined in USA; F31.9 Bipolar disorder, unspecified; F19.10 Other psychoactive substance abuse, uncomplicated; F17.200 Nicotine dependence, unspecified, uncomplicated; Z79.4 Long term (current) use of insulin; Z79.899 Other long term (current) drug therapy; M86.172 Other acute osteomyelitis, left ankle and foot; L97.529 Non-pressure chronic ulcer of other part of left foot with unspecified severity; E78.49 Other hyperlipidemia; I25.2 Old myocardial infarction; I10 Essential (primary) hypertension; Z86.73 Personal history of transient ischemic attack (TIA), and cerebral infarction without residual deficits; I25.10 Atherosclerotic heart disease of native coronary artery without angina pectoris; G47.00 Insomnia, unspecified; K21.9 Gastro-esophageal reflux disease without esophagitis; E55.9 Vitamin D deficiency, unspecified; G25.81 Restless legs syndrome; Z79.82 Long term (current) use of aspirin; F10.21 Alcohol dependence, in remission
CPT/HCPCS: 99283; J0131; J0690; J1100; J1885; J2250; J2405; J2765; J3010

== ENCOUNTER 2020-10-16 19:07 | Inpatient (IN) | payer MEDICARE, MEDICAID ==
[~2020-10-16] VITALS: Ht 177.8 cm; Wt 84.6 kg
[2020-10-16] MEDS ORDERED: GABA-282 PO (19:40)
[2020-10-16] MEDS ORDERED: CITA40TA4 PO (19:40)
[2020-10-16] MEDS ORDERED: FERR325T3 PO (19:40)
[2020-10-16] MEDS ORDERED: LOSA25TA14 PO (19:40)
[2020-10-16] MEDS ORDERED: INSUDET SC (19:40)
[2020-10-16] MEDS ORDERED: BUSP10TA PO (19:40)
[2020-10-16] MEDS ORDERED: MIRT-60 PO (19:40)
[2020-10-16] MEDS ORDERED: DEXTROSE 50% 50 ML SYRINGE IV PRN (22:15)
[2020-10-16] MEDS ORDERED: MAALOX 30 ML SUSP *UDC PO PRN (22:15)
[2020-10-16] MEDS ORDERED: GLUCOSE 4GM CHEW TABLET PO PRN (22:15)
[2020-10-16] MEDS ORDERED: GLUCAGON INJ 1MG VIAL SC PRN (22:15)
[2020-10-16] MEDS ORDERED: ACETAMINOPHEN TAB 650MG DOSE (2X325MG) PO PRN (22:15)
[2020-10-16] MEDS ORDERED: MOM 30ML SUSPENSION UDC PO PRN (22:15)
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
[2020-10-16] MEDS ORDERED: ASPI325T42 PO (22:54)
[2020-10-16] MEDS ORDERED: HYDR-4571 PO (22:54)
[2020-10-16] MEDS ORDERED: ROPI2TAB3 PO (22:54)
[2020-10-16] MEDS ORDERED: PATIENT COMMENT (22:55)
[2020-10-16 23:00] VITALS: BP 126/76
[2020-10-16 23:11] LABS: BASO % 0.9 % (0.0-1.0); EOS # 0.4 10^3/uL (0.0-0.5); EOS % 8.7 % (0.0-3.0); HEMATOCRIT 37.9 % (42.0-52.0); HEMOGLOBIN 12.5 g/dl (13.5-17.5); LYMPH # 1.4 10^3/uL (1.5-5.0); LYMPH % 32.1 % (24.0-44.0); MEAN CORPUSCULAR HEMOGLOBIN 29.1 pg (27.0-33.0); MEAN CORPUSCULAR VOLUME 88.3 fl (80.0-96.0); MONO # 0.4 10^3/uL (0.0-0.8); MONO % 7.8 % (2.0-8.0); NEUTROPHILS # 2.3 10^3/uL (1.5-8.5); NEUTROPHILS % 50.5 % (36.0-66.0); PLATELET COUNT, AUTOMATED 297 10^3/uL (150-450); RED BLOOD COUNT 4.29 10^6/uL (4.30-6.10); WHITE BLOOD COUNT 4.5 10^3/uL (4.0-10.0)
[2020-10-16 23:25] LABS: INR 0.97; PROTHROMBIN TIME 13.1 SECONDS (12.5-14.3)
[2020-10-16] MEDS: THIAMINE 100 MG TAB PO SCH (23:41)
[2020-10-16] MEDS: LORazepam 2 MG TAB PO PRN (23:42)
[2020-10-16 23:44] LABS: ERYTHROCYTE SEDIMENTATION RATE 25 mm/hr (0-20)
[2020-10-16] MEDS: HumaLOG INSULIN (NovoLOG) PER UNIT SC SCH (23:45)
[2020-10-16 23:47] VITALS: BP 126/76
[2020-10-17] VITALS (7 sets, daily range): BP systolic 104–144; BP diastolic 57–80
[2020-10-17 00:15] LABS: ALT/SGPT 22 U/L (12-78); BILIRUBIN,TOTAL 0.2 MG/DL (0.2-1.0); BLOOD UREA NITROGEN 19 MG/DL (7-18); C REACTIVE PROTEIN QUANTITATIV 1.36 MG/DL (0.00-0.30); CALCIUM LEVEL 8.4 MG/DL (8.5-10.1); CARBON DIOXIDE LEVEL 26 MEQ/L (21-32); CHLORIDE LEVEL 110 MEQ/L (98-107); GLOMERULAR FILTRATION RATE > 60.0 (>56); GLUCOSE, FASTING 124 MG/DL (70-100); POTASSIUM SERUM 4.2 MEQ/L (3.5-5.1); SODIUM LEVEL 142 MEQ/L (136-145)
[2020-10-17] MEDS: rOPINIRole 1MG TAB PO SCH ×5 (00:30→20:13)
[2020-10-17] MEDS ORDERED: VITAMIN D 1,000 INTERNATIONAL UNITS TABLET PO SCH (00:30)
[2020-10-17] MEDS: GABAPENTIN 300 MG CAP PO SCH ×4 (02:02→20:13)
[2020-10-17] MEDS: busPIRone 10 MG TAB PO SCH ×3 (02:02→20:14)
[2020-10-17] MEDS: MIRTAZAPINE 15 MG TAB PO SCH ×2 (02:02→20:13)
[2020-10-17] MEDS ORDERED: VANCOMYCIN HCL 750 MG, VIAL MATE ADAPTER 1 EACH in NS 250 ML IV SCH (05:05)
[2020-10-17] MEDS ORDERED: VANCOMYCIN HCL 1,000 MG, VIAL MATE ADAPTER 1 EACH in NS 250 ML IV ONE (06:00)
[2020-10-17] MEDS ORDERED: VANCOMYCIN HCL 750 MG, VIAL MATE ADAPTER 1 EACH in NS 250 ML IV ONE (06:00)
[2020-10-17] MEDS: HumaLOG INSULIN (NovoLOG) PER UNIT SC SCH ×3 (06:13→18:44)
[2020-10-17] MEDS: NORCO, ANEXSIA 5/325MG TABLET (HYDROcodone/ACETAMINOPHEN) PO PRN ×3 (06:13→20:20)
[2020-10-17] MEDS: HEPARIN SOD (PORCINE) 5000UNITS/ML 1ML VIAL/SYRINGE SQ SCH ×3 (06:14→21:47)
[2020-10-17 07:21] LABS: HEMATOCRIT 39.1 % (42.0-52.0); HEMOGLOBIN 12.6 g/dl (13.5-17.5); MEAN CORPUSCULAR HGB CONC 32.2 g/dl (32.0-36.5); MEAN CORPUSCULAR VOLUME 89.9 fl (80.0-96.0); PLATELET COUNT, AUTOMATED 295 10^3/uL (150-450); RED BLOOD COUNT 4.35 10^6/uL (4.30-6.10); WHITE BLOOD COUNT 4.3 10^3/uL (4.0-10.0)
[2020-10-17 07:44] LABS: BLOOD UREA NITROGEN 20 MG/DL (7-18); CALCIUM LEVEL 8.7 MG/DL (8.5-10.1); CARBON DIOXIDE LEVEL 24 MEQ/L (21-32); CHLORIDE LEVEL 107 MEQ/L (98-107); CREATININE FOR GFR 0.89 MG/DL (0.70-1.30); GLOMERULAR FILTRATION RATE > 60.0 (>56); GLUCOSE, FASTING 320 MG/DL (70-100); POTASSIUM SERUM 4.6 MEQ/L (3.5-5.1); SODIUM LEVEL 137 MEQ/L (136-145)
[2020-10-17] MEDS: LEVEMIR (INSULIN DETEMIR) 1 UNITS/0.01ML SC SCH (08:03)
[2020-10-17] MEDS: ASPIRIN ENTERIC 325 MG TAB PO SCH (08:04)
[2020-10-17] MEDS: CitaloPRAM (CeleXA) 20 MG TAB PO SCH (08:04)
[2020-10-17] MEDS: MULTIVITAMINS/MINERALS THERAP 1 TAB PO SCH (08:04)
[2020-10-17] MEDS: lamoTRIgine 100MG TAB PO SCH (08:04)
[2020-10-17] MEDS: FOLIC ACID 1 MG TAB PO SCH (08:04)
[2020-10-17] MEDS: THIAMINE 100 MG TAB PO SCH ×2 (08:05→20:14)
[2020-10-17] MEDS: PANTOPRAZOLE 40MG TAB (PROTONIX) PO SCH (08:05)
[2020-10-17] MEDS: ATORVASTATIN 20 MG TAB PO SCH (08:05)
[2020-10-17] MEDS: LOSARTAN 25 MG TAB PO SCH (08:08)
[2020-10-17 09:08] LABS: HEMOGLOBIN A1c 8.2 %
[2020-10-17] MEDS: PIPERACILLIN/TAZOBACTAM SOD 3.375 GM in D5W MINI-BAG PLUS 50 ML IV SCH ×3 (09:56→20:14)
--- NOTE | 2020-10-17 12:56 | IPNPDOC ---
Text Note Date of Service The patient was seen on 10/17/20. NOTE SUBJECTIVE: Patient was seen and examined at bedside. Patient states he continues to have pain in his foot. He reports feeling hot and cold at home, denies any fevers or chills overnight. Reports mild nausea but able to tolerate diet. OBJECTIVE: VITAL SIGNS: See below GENERAL: Alert, comfortable, in no acute distress HEENT: Normocephalic, atraumatic, sclera anicteric, moist mucous membranes CARDIOVASCULAR: Regular rate and rhythm, normal S1 and S2. No murmurs, rubs, or gallops RESPIRATORY: Clear to auscultation bilaterally with equal air entry bilaterally. No wheezing, rhonchi, or rales. ABDOMEN: Soft, nontender, nondistended, bowel sounds present EXTREMITIES: Left foot is wrapped in a clean bandage. There are open wounds on b oth the plantar and dorsal surfaces of left foot without surround erythema or warmth. There is some serous drainage from the wounds. Left foot is tender to palpation up to the ankle. Right foot without any wounds or tenderness. NEUROLOGIC: Alert and oriented x3 to person, place and time. No focal deficits appreciated PSYCHIATRIC: Mood and affect appropriate ASSESSMENT/PLAN: 49 yr old M w a hx of DM1 w multiple complications, CAD w PCI, CVA, HTN, Bipolar disorder, MDD, SAPNA, RLS, right charcot foot and recent left first metatarsal excision to manage osteomyelitis who presented to [facility] w c/o left foot swelling, was diagnosed cellulitis of the left foot & left 1st, 2nd and 3rd toe osteomyelitis and was transferred here for Podiatry evaluation. # Cellulitis of the left foot w possible left 1st, 2nd and 3rd toe osteomyelitis - Recently had a left first metatarsal excision for osteomyelitis by Dr. Devi - abx coverage with Zosyn & Vancomycin day #2 - Dr. Devi/podiatry consulted, appreciate recommendations # NN Anemia - hold home iron supplement in the setting of acute infection # T1DM complicated by hx of DKA, neuropathy, gastroparesis & erectile d ysfunction - consistent carb diet, hypoglycemia protocol, SSI ACHS - decrease long acting insulin from 20 units in the morning to 10 units in the morning and from 15 units at night to 7 units at night for now - continue home gabapentin # Hx of CVA/Hx of VA s/p PCI - continue home aspirin, atorvastatin # Essential Hypertension - continue home losartan # Bipolar type 2 / generalized anxiety disorder/ Depression - continue home Buspirone, Citalopram, Lamotrigine, Mirtazapine # RLS - continue home Ropinirole # Hx of alcohol abuse - [facility] protocol. pt denies recent alcohol use. DVT Prophylaxis: sc heparin DISPOSITION: pending evaluation by Dr. Devi for possible surgical intervention Attending Attestation: Patient independently seen and examined. I have discussed in detail with the resident / student the findings and plan of treatment as documented by the resident / student. I agree with their findings and treatment plan and have edited their documentation. I will continue to follow the patient during this hospital stay. VS,Fishbone, I+O VS, Fishbone, I+O Laboratory Tests 10/16/20 23:00 10/17/20 07:02 Vital Signs Date Time Temp Pulse Resp B/P (MAP) Pulse Ox O2 Delivery O2 Flow Rate FiO2 10/17/20 08:08 118/65 10/17/20 08:00 16 10/17/20 06:00 98.2 79 95 Room Air I&O- Last 24 Hours up to 6 AM 10/17/20 06:00 Intake Total 0 ml Output Total 0 ml Balance 0 ml ROBERT MEJIA D.O. Oct 17, 2020 12:56 SREE CURRY MD Oct 18, 2020 09:19
--- NOTE | 2020-10-17 13:04 | CR ---
CONSULTATION DATE: 10/17/2020 REASON FOR CONSULTATION: Left foot infection. HISTORY OF PRESENT ILLNESS: Mr. Rust is a pleasant 50-year-old male who was admitted yesterday, a transfer from [facility]. He states over the last few days, he has had worsening pain in his left foot and has had some fever and chills. He had recent first metatarsal head excision by myself on October 06, 2020 and on first postoperative visit, he was doing well. PAST MEDICAL HISTORY: Significant for: 1. Type 1 diabetes. 2. Neuropathy. 3. Gastroparesis. 4. History of coronary artery disease. 5. History of myocardial infarction (CO). 6. History of cerebrovascular accident (CVA). 7. Hypertension. 8. Bipolar. 9. Gastroesophageal reflux disease (GERD). 10. Depression. 11. Restless leg syndrome. SOCIAL HISTORY: Positive for smoking. History of alcohol abuse. ALLERGIES: No known drug allergies. FAMILY HISTORY: Noncontributory. PHYSICAL EXAMINATION: VITAL SIGNS: Are reviewed. He has been afebrile since his last admission. LOWER EXTREMITY EXAMINATION: Pedal pulses are palpable. There is no significant erythema to the foot. There has been some wound dehiscence to the foot. There is an ulceration to the third toe with some mild local erythema. Plantar ulceration is in good condition. LABORATORY DATA: Labs are reviewed. WBC 4.3. Erythrocyte sedimentation rate (ESR) is 25. C-reactive protein (CRP) is 1.36. ASSESSMENT: This is a 50-year-old diabetic male, history of osteomyelitis, status post metatarsal head excision, with new cellulitis. PLAN: No plan at this time for further operation. The wound appears stable without need for further amputation. Continue antibiotics. Most likely, patient will be able to be discharged home with two weeks coverage.
[2020-10-17] MEDS: VANCOMYCIN HCL 1,000 MG, VIAL MATE ADAPTER 1 EACH in NS 250 ML IV SCH ×2 (13:34→21:47)
[2020-10-17] MEDS: LORazepam 2 MG TAB PO PRN (13:55)
[2020-10-17] MEDS: MUPIROCIN 2% OINT 22 GM TUBE TOP SCH (15:25)
[2020-10-17] MEDS ORDERED: CYCLOBENZAPRINE 5MG TABLET PO PRN (16:55)
[2020-10-17] MEDS ORDERED: LEVEMIR (INSULIN DETEMIR) 1 UNITS/0.01ML SC SCH (21:00)
[2020-10-18] MEDS: HumaLOG INSULIN (NovoLOG) PER UNIT SC SCH ×3 (00:35→12:33)
[2020-10-18] MEDS: PIPERACILLIN/TAZOBACTAM SOD 3.375 GM in D5W MINI-BAG PLUS 50 ML IV SCH ×2 (02:48→08:14)
[2020-10-18] MEDS ORDERED: GLUCAGON INJ 1MG VIAL SC PRN (02:50)
[2020-10-18] MEDS ORDERED: GLUCOSE 4GM CHEW TABLET PO PRN (02:50)
[2020-10-18] MEDS ORDERED: DEXTROSE 50% 50 ML SYRINGE IV PRN (02:50)
[2020-10-18 06:00] VITALS: BP 130/73
[2020-10-18] MEDS: VANCOMYCIN HCL 1,000 MG, VIAL MATE ADAPTER 1 EACH in NS 250 ML IV SCH (06:09)
[2020-10-18] MEDS: HEPARIN SOD (PORCINE) 5000UNITS/ML 1ML VIAL/SYRINGE SQ SCH (06:09)
[2020-10-18] MEDS: NORCO, ANEXSIA 5/325MG TABLET (HYDROcodone/ACETAMINOPHEN) PO PRN (06:16)
[2020-10-18] MEDS: GABAPENTIN 300 MG CAP PO SCH (08:09)
[2020-10-18] MEDS: lamoTRIgine 100MG TAB PO SCH (08:09)
[2020-10-18] MEDS: THIAMINE 100 MG TAB PO SCH (08:09)
[2020-10-18] MEDS: rOPINIRole 1MG TAB PO SCH (08:10)
[2020-10-18] MEDS: FOLIC ACID 1 MG TAB PO SCH (08:10)
[2020-10-18] MEDS: MULTIVITAMINS/MINERALS THERAP 1 TAB PO SCH (08:10)
[2020-10-18] MEDS: PANTOPRAZOLE 40MG TAB (PROTONIX) PO SCH (08:10)
[2020-10-18] MEDS: busPIRone 10 MG TAB PO SCH (08:10)
[2020-10-18] MEDS: CitaloPRAM (CeleXA) 20 MG TAB PO SCH (08:10)
[2020-10-18] MEDS: ATORVASTATIN 20 MG TAB PO SCH (08:10)
[2020-10-18] MEDS: LOSARTAN 25 MG TAB PO SCH ×2 (08:12→08:46)
[2020-10-18] MEDS: LEVEMIR (INSULIN DETEMIR) 1 UNITS/0.01ML SC SCH (08:13)
[2020-10-18] MEDS: ASPIRIN ENTERIC 325 MG TAB PO SCH (08:13)
[2020-10-18] MEDS: MUPIROCIN 2% OINT 22 GM TUBE TOP SCH (08:14)
[2020-10-18 08:46] VITALS: BP 106/67
[2020-10-18 09:02] LABS: BASO # 0.1 10^3/uL (0.0-0.2); BASO % 1.8 % (0.0-1.0); EOS # 0.4 10^3/uL (0.0-0.5); EOS % 10.6 % (0.0-3.0); HEMATOCRIT 41.2 % (42.0-52.0); HEMOGLOBIN 13.6 g/dl (13.5-17.5); LYMPH # 1.2 10^3/uL (1.5-5.0); LYMPH % 31.7 % (24.0-44.0); MEAN CORPUSCULAR HEMOGLOBIN 29.4 pg (27.0-33.0); MONO # 0.3 10^3/uL (0.0-0.8); MONO % 7.5 % (2.0-8.0); NEUTROPHILS # 1.9 10^3/uL (1.5-8.5); NEUTROPHILS % 48.1 % (36.0-66.0); PLATELET COUNT, AUTOMATED 327 10^3/uL (150-450); RED BLOOD COUNT 4.63 10^6/uL (4.30-6.10); WHITE BLOOD COUNT 3.9 10^3/uL (4.0-10.0)
[2020-10-18 09:21] LABS: ERYTHROCYTE SEDIMENTATION RATE 27 mm/hr (0-20)
[2020-10-18 09:36] LABS: BLOOD UREA NITROGEN 13 MG/DL (7-18); C REACTIVE PROTEIN QUANTITATIV 1.49 MG/DL (0.00-0.30); CALCIUM LEVEL 8.6 MG/DL (8.5-10.1); CARBON DIOXIDE LEVEL 28 MEQ/L (21-32); CHLORIDE LEVEL 108 MEQ/L (98-107); CREATININE FOR GFR 0.87 MG/DL (0.70-1.30); GLOMERULAR FILTRATION RATE > 60.0 (>56); GLUCOSE, FASTING 257 MG/DL (70-100); POTASSIUM SERUM 4.6 MEQ/L (3.5-5.1); SODIUM LEVEL 139 MEQ/L (136-145)
[2020-10-18] MEDS ORDERED: CLEO300C2 PO (11:01)
--- NOTE | 2020-10-18 12:11 | DS.PDOC ---
Discharge Summary General Date of Admission Oct 16, 2020 at 22:03 Date of Discharge 10/18/20 Attending Physician: SREE CURRY MD Specialist/Consultants Involve: PALU DEVI DPM Discharge Summary PROCEDURES PERFORMED DURING STAY: None. ADMITTING DIAGNOSES: Cellulitis of the left foot w possible left 1st, 2nd and 3rd toe osteomyelitis Chronic anemia T1DM Hx ME s/p PCI Hx CVA HTN Bipolar type 2 / generalized anxiety disorder/ Depression RLS Hx of alcohol abuse DISCHARGE DIAGNOSES: Cellulitis of the left foot Chronic anemia T1DM Hx ME s/p PCI Hx CVA HTN Bipolar type 2 / generalized anxiety disorder/ Depression RLS Hx of alcohol abuse COMPLICATIONS/CHIEF COMPLAINT: Left Foot Osteomyelitis. HISTORY OF PRESENT ILLNESS: 49 year old M underwent left first metatarsal head excision for osteomyelitis on October 06 here at [facility] , now presented at [facility] w c/o feeling the same way he felt before he had the surgery. Specifically he had more swelling of the left foot, subjective fevers/chills, and poor appetite. He was concerned that he may have osteomyelitis affecting his left foot so he went to [facility]. His WBC # and lactic acid were wnl but the CRP was 17.4 and ESR was 25. He was diagnosed w cellulitis of the left foot & left 1st, 2nd and 3rd toe osteomyelitis and transferred here for Podiatry evaluation. HOSPITAL COURSE: Patient was admitted to the hospital and stated on IV antibiotics with vancomycin and zosyn. Dr. Devi was consulted and evaluated the patient. Dr. Devi did not recommend surgery at this time. CRP was rechecked and found to be 1.49. ESR was also rechecked and found to be stable. Cellulitis of the foot appears to improve clinically during the patient's admission. The patient was switched to oral antibiotic coverage with clindamycin. He was discharged on a 2 week course of clindamycin. He will follow up outpatient with Dr. Devi for further care. DISCHARGE MEDICATIONS: Please see below. ALLERGIES: Please see below. PHYSICAL EXAMINATION ON DISCHARGE: VITAL SIGNS: Please see below. GENERAL: Alert, comfortable, in no acute distress HEENT: Normocephalic, atraumatic, sclera anicteric, moist mucous membranes CARDIOVASCULAR: Regular rate and rhythm, normal S1 and S2. No murmurs, rubs, or gallops RESPIRATORY: Clear to auscultation bilaterally with equal air entry bilaterally. No wheezing, rhonchi, or rales. ABDOMEN: Soft, nontender, nondistended, bowel sounds present EXTREMITIES: Left foot is wrapped in a clean bandage. There are open wounds on both the plantar and dorsal surfaces of left foot without surround erythema or warmth. Third toe on the left foot has ulceration with some surrounding erythema. Left foot is nontender today. Right foot without any wounds or tenderness. NEUROLOGIC: Alert and oriented x3 to person, place and time. No focal deficits appreciated PSYCHIATRIC: Mood and affect appropriate LABORATORY DATA: Please see below. IMAGING: From [place] chest xray no acute process From [place] 4 view left foot xray showed cortical destruction of the proximal ph alanx of the 3rd toe and possibly the tips of the 1st and 2nd toes. PROGNOSIS: Fair ACTIVITY: As tolerated. DIET: Consistent carb DISCHARGE PLAN: f/u outpatient with Dr. Devi and complete antibiotic course DISPOSITION: Home DISCHARGE INSTRUCTIONS: Follow up with your PCP in 7-10 days Follow up with Dr. Devi Complete full course of antibiotics for 2 weeks If your symptoms worsen please call your PCP or return to the ED for further evaluation DISCHARGE CONDITION: Stable. TIME SPENT ON DISCHARGE: Greater than 35 minutes. Attending Attestation: Patient independently seen and examined. I have discussed in detail with the resident / student the findings and plan of treatment as documented by the resident / student. I agree with their findings and treatment plan and have edited their documentation. I will continue to follow the patient during this hospital stay. Vital Signs/I&Os Vital Signs Date Time Temp Pulse Resp B/P (MAP) Pulse Ox O2 Delivery O2 Flow Rate FiO2 10/18/20 08:46 106/67 10/18/20 06:46 16 10/18/20 06:00 98.7 69 93 Room Air I&O- Last 24 Hours up to 6 AM 10/18/20 06:00 Intake Total 1090 ml Output Total 600 ml Balance 490 ml Laboratory Data Labs 24H Laboratory Tests 2 10/17/20 11:55: Bedside Glucose (Misc Panel) 275H 10/17/20 17:52: Bedside Glucose (Misc Panel) 189H 10/17/20 21:02: Vancomycin Level Trough 11.3 10/17/20 21:06: Bedside Glucose (Misc Panel) 200H 10/17/20 23:59: Bedside Glucose (Misc Panel) 232H 10/18/20 07:40: Bedside Glucose (Misc Panel) 157H 10/18/20 08:49: Immature Granulocyte % (Auto) 0.3, Neutrophils (%) (Auto) 48.1, Lymphocytes (%) (Auto) 31.7, Monocytes (%) (Auto) 7.5, Eosinophils (%) (Auto) 10.6H, Basophils (%) (Auto) 1.8H, Neutrophils # (Auto) 1.9, Lymphocytes # (Auto) 1.2L, Monocytes # (Auto) 0.3, Eosinophils # (Auto) 0.4, Basophils # (Auto) 0.1, Nucleated Red Blood Cells % (auto) 0.0, Erythrocyte Sedimentation Rate 27H, Anion Gap 3L, Glomerular Filtration Rate > 60.0, Calcium Level 8.6, C-Reactive Protein, Quantitative 1.49H 10/18/20 11:35: Bedside Glucose (Misc Panel) 292H CBC/BMP Laboratory Tests 10/18/20 08:49 FSBS Laboratory Tests Test 10/17/20 11:55 10/17/20 17:52 10/17/20 21:06 10/17/20 23:59 Range/Units Bedside Glucose (Misc Panel) 275 189 200 232 70-105 MG/DL Test 10/18/20 07:40 10/18/20 11:35 Range/Units Bedside Glucose (Misc Panel) 157 292 70-105 MG/DL Discharge Medications Scheduled Aspirin (Aspirin EC) 325 Mg Tablet.dr, 325 MG PO DAILY, (Reported) Atorvastatin Calcium (Atorvastatin Calcium) 40 Mg Tab, 40 MG PO DAILY, (Reported) Buspirone HCl (Buspirone HCl) 10 Mg Tablet, 10 MG PO BID, (Reported) Cholecalciferol (Vitamin D3) (Vitamin D3) 1,000 Unit Tablet, 3,000 UNITS PO QWEEK, (Reported) Citalopram Hydrobromide (Citalopram HBr) 40 Mg Tablet, 20 MG PO DAILY, (Reported) Clindamycin Hcl (Cleocin HCl) 300 Mg Capsule, 300 MG PO TID Cyanocobalamin (Vitamin B-12) (Vitamin B-12) 1,000 Mcg Tablet, 1,000 MCG PO DAILY, (Reported) Ferrous Sulfate (Ferrous Sulfate) 325 Mg Tablet.dr, 325 MG PO BID, (Reported) Gabapentin (Gabapentin) 300 Mg Capsule, 300 MG PO TID, (Reported) Insulin Detemir (Levemir) 100 Unit/1 Ml Vial, 20 UNITS SC DAILY, (Reported) Insulin Detemir (Levemir) 100 Unit/1 Ml Vial, 15 UNITS SC QHS, (Reported) Insulin Lispro (Humalog Kwikpen U-100) 100 Unit/1 Ml Insuln.pen, 1 DOSE SC AC, (Reported) PER SLIDING SCALE Lamotrigine (Lamotrigine) 100 Mg Tablet, 100 MG PO DAILY, (Reported) Losartan Potassium (Losartan Potassium) 25 Mg Tablet, 25 MG PO DAILY, (Reported) Mirtazapine (Remeron) 30 Mg Tablet, 30 MG PO QHS, (Reported) Pantoprazole Sodium (Pantoprazole Sodium) 40 Mg Tablet.dr, 40 MG PO DAILY, ( Reported) Ropinirole HCl (Ropinirole HCl) 4 Mg Tablet, 4 MG PO QHS, (Reported) Ropinirole HCl (Ropinirole HCl) 2 Mg Tablet, 2 MG PO BID, (Reported) 0900, 1600 Scheduled PRN Hydrocodone/Acetaminophen (Hydrocodone-Acetamin 5-325 mg) 1 Each Tablet, 1 TAB PO Q6H PRN for PAIN, (Reported) CAN HAVE A SECOND TAB PER DOSE Miscellaneous Medications [Patient Comment] , (Reported) MED REC COMPLETE VIA EXTERNAL MED HISTORY AND PREVIOUS CLINIC VISITS Allergies Coded Allergies: No Known Allergies (Unverified , 10/04/20) ROBERT MEJIA D.O. Oct 18, 2020 11:48 SREE CURRY MD Oct 20, 2020 07:08
== END 2020-10-18 14:56 | disposition home or self-care (01) | DRG 603 ==
LOC: M MS5PR 22:03 → M MSPAV 10-17 16:01
PROVIDERS: ADMIT Internal Medicine; ATTEND Internal Medicine
DX: L03.116 Cellulitis of left lower limb (principal); F31.81 Bipolar II disorder; M86.272 Subacute osteomyelitis, left ankle and foot; I10 Essential (primary) hypertension; E10.43 Type 1 diabetes mellitus with diabetic autonomic (poly)neuropathy; K31.84 Gastroparesis; D64.9 Anemia, unspecified; Z86.73 Personal history of transient ischemic attack (TIA), and cerebral infarction without residual deficits; I25.2 Old myocardial infarction; F41.1 Generalized anxiety disorder; G25.81 Restless legs syndrome; F10.10 Alcohol abuse, uncomplicated; Z79.899 Other long term (current) drug therapy; Z79.4 Long term (current) use of insulin; F17.200 Nicotine dependence, unspecified, uncomplicated; Z79.82 Long term (current) use of aspirin

== ENCOUNTER 2020-11-27 14:21 | Emergency (ER) | payer MEDICARE, MEDICAID ==
[~2020-11-27] VITALS: Ht 177.8 cm; Wt 79.2 kg
[~2020-11-27 14:21] MED LIST changes: +ASPI325T42 PO; +BUSP10TA PO; +FERR325T3 PO; +HYDR-4571 PO; +PATIENT COMMENT; +ROPI2TAB3 PO
[2020-11-27] MEDS ORDERED: NS 1,000 ML IV ONE ×2 (15:15→16:35)
[2020-11-27 15:32] LABS: BASO # 0.1 10^3/uL (0.0-0.2); BASO % 1.4 % (0.0-1.0); EOS # 0.3 10^3/uL (0.0-0.5); EOS % 5.2 % (0.0-3.0); HEMATOCRIT 46.4 % (42.0-52.0); HEMOGLOBIN 15.2 g/dl (13.5-17.5); LYMPH # 0.8 10^3/uL (1.5-5.0); LYMPH % 13.9 % (24.0-44.0); MEAN CORPUSCULAR HEMOGLOBIN 29.8 pg (27.0-33.0); MEAN CORPUSCULAR HGB CONC 32.8 g/dl (32.0-36.5); MONO # 0.4 10^3/uL (0.0-0.8); MONO % 7.4 % (2.0-8.0); NEUTROPHILS % 71.6 % (36.0-66.0); PLATELET COUNT, AUTOMATED 293 10^3/uL (150-450); WHITE BLOOD COUNT 5.5 10^3/uL (4.0-10.0)
[2020-11-27 16:06] LABS: ALBUMIN 3.2 GM/DL (3.2-5.2); ALT/SGPT 24 U/L (12-78); BILIRUBIN,DIRECT < 0.1 MG/DL (0.0-0.2); BILIRUBIN,TOTAL 0.3 MG/DL (0.2-1.0); CK-MB VALUE MASS < 1.0 NG/ML (<3.6); CPK CREATINE PHOSPHOKINASE 59 U/L (39-308); LIPASE 48 U/L (73-393); MAGNESIUM LEVEL 3.6 MG/DL (1.8-2.4); MB/CK RELATIVE INDEX 1.69 (< OR =4); TROPONIN I < 0.02 NG/ML (< 0.10)
[2020-11-27 18:15] VITALS: BP 105/51
--- NOTE | 2020-11-27 20:13 | ECGEPIP ---
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
== END 2020-11-27 18:44 | disposition home or self-care (01) ==
LOC: M ED 14:21
DX: R19.7 Diarrhea, unspecified (principal); E83.41 Hypermagnesemia; E11.9 Type 2 diabetes mellitus without complications; I10 Essential (primary) hypertension; I25.2 Old myocardial infarction; K21.9 Gastro-esophageal reflux disease without esophagitis; F31.9 Bipolar disorder, unspecified; Z86.73 Personal history of transient ischemic attack (TIA), and cerebral infarction without residual deficits; Z79.82 Long term (current) use of aspirin; Z79.899 Other long term (current) drug therapy; Z79.4 Long term (current) use of insulin

== ENCOUNTER 2020-11-30 18:42 | Emergency (ER) | payer MEDICARE, MEDICAID ==
[~2020-11-30] VITALS: Ht 177.8 cm; Wt 86.4 kg
[2020-11-30 20:15] VITALS: BP 123/73
== END 2020-11-30 20:34 | disposition home or self-care (01) ==
LOC: M ED 18:42 → EDBD 18:42 → M ED 20:34
DX: I10 Essential (primary) hypertension (principal); Z03.89 Encounter for observation for other suspected diseases and conditions ruled out; E11.9 Type 2 diabetes mellitus without complications; Z79.4 Long term (current) use of insulin; Z79.82 Long term (current) use of aspirin; Z79.2 Long term (current) use of antibiotics; Z79.899 Other long term (current) drug therapy; Z79.891 Long term (current) use of opiate analgesic

== ENCOUNTER 2021-02-16 18:18 | Emergency (ER) | payer MEDICARE, MEDICAID ==
[~2021-02-16] VITALS: Ht 177.8 cm; Wt 77.1 kg
[~2021-02-16 18:18] MED LIST changes: +ARIP10TA32 PO; -ARIP1TAB PO; -CITA10TA5 PO; +CITA10TA7 PO; -CITA40TA4 PO; +CITA40TA7 PO; -DOXY100C PO; +DOXY100C3 PO; +ERGO500029 PO; +LOSA25TA13 PO; -LOSA25TA14 PO; +QUET1TAB17; +QUET1TAB17 PO; -QUET25TA3; -QUET25TA3 PO; -QUET50TA3 PO; +QUET50TA4 PO
[2021-02-16 22:58] VITALS: BP 138/73
== END 2021-02-16 23:01 | disposition home or self-care (01) ==
LOC: M ED 18:18
DX: F07.81 Postconcussional syndrome (principal); R51.9 Headache, unspecified; F17.200 Nicotine dependence, unspecified, uncomplicated

== ENCOUNTER 2021-02-19 21:28 | Emergency (ER) | payer MEDICARE, MEDICAID ==
[~2021-02-19] VITALS: Ht 177.8 cm; Wt 79.3 kg
[~2021-02-19 21:28] MED LIST changes: +CITA10TA5 PO; -CITA10TA7 PO; +CITA40TA4 PO; -CITA40TA7 PO; +DOXY100C PO; -DOXY100C3 PO; -LOSA25TA13 PO; +LOSA25TA14 PO; -QUET1TAB17; -QUET1TAB17 PO; +QUET25TA3; +QUET25TA3 PO; +QUET50TA3 PO; -QUET50TA4 PO
[2021-02-19] MEDS ORDERED: NS 1,000 ML IV SCH (21:50)
[2021-02-19] MEDS ORDERED: BOOSTRIX/ADACEL VACCINE (DIPHTH/PERTUSS/ACELL/TETANUS) 0.5ML SYR IM ONE (21:50)
[2021-02-19] MEDS ORDERED: DEXTROSE 50% 50 ML SYRINGE IV STA (21:59)
[2021-02-19 22:08] LABS: BASO # 0.1 10^3/uL (0.0-0.2); BASO % 0.9 % (0.0-1.0); EOS # 0.3 10^3/uL (0.0-0.5); EOS % 3.9 % (0.0-3.0); HEMATOCRIT 39.2 % (42.0-52.0); HEMOGLOBIN 13.2 g/dl (13.5-17.5); LYMPH # 1.4 10^3/uL (1.5-5.0); LYMPH % 21.2 % (24.0-44.0); MEAN CORPUSCULAR HGB CONC 33.7 g/dl (32.0-36.5); MEAN CORPUSCULAR VOLUME 89.1 fl (80.0-96.0); MONO # 0.6 10^3/uL (0.0-0.8); MONO % 8.6 % (2.0-8.0); NEUTROPHILS # 4.3 10^3/uL (1.5-8.5); NEUTROPHILS % 65.1 % (36.0-66.0); PLATELET COUNT, AUTOMATED 260 10^3/uL (150-450); WHITE BLOOD COUNT 6.6 10^3/uL (4.0-10.0)
[2021-02-19] MEDS ORDERED: LIDOCAINE 2% MDV 20ML VIAL SC ONE (22:15)
[2021-02-19 22:25] LABS: ACETAMINOPHEN LEVEL < 2.0 UG/ML (10.0-30.0); ALBUMIN 3.3 GM/DL (3.2-5.2); ALT/SGPT 41 U/L (12-78); BILIRUBIN,DIRECT < 0.1 MG/DL (0.0-0.2); BILIRUBIN,TOTAL 0.3 MG/DL (0.2-1.0); BLOOD UREA NITROGEN 6 MG/DL (7-18); CALCIUM LEVEL 8.3 MG/DL (8.5-10.1); CARBON DIOXIDE LEVEL 32 MEQ/L (21-32); CHLORIDE LEVEL 111 MEQ/L (98-107); CREATININE FOR GFR 0.66 MG/DL (0.70-1.30); ETHYL ALCOHOL (ETHANOL) < 0.003 % (0.000-0.010); GLOMERULAR FILTRATION RATE > 60.0 (>56); GLUCOSE, FASTING 49 MG/DL (70-100); POTASSIUM SERUM 3.2 MEQ/L (3.5-5.1); SALICYLATE LEVEL 5.3 MG/DL (5.0-30.0); SODIUM LEVEL 145 MEQ/L (136-145); THYROID STIMULATING HORMONE 0.828 uIU/ML (0.358-3.740); TOTAL PROTEIN 5.9 GM/DL (6.4-8.2)
--- NOTE | 2021-02-19 23:10 | REPVR ---
PROCEDURE INFORMATION: Exam: CT Cervical Spine Without Contrast Exam date and time: 02/19/2021 10:28 PM Age: 50 years old Clinical indication: Weakness; Additional info: Altered mental status TECHNIQUE: Imaging protocol: Computed tomography images of the cervical spine without contrast. Radiation optimization: All CT scans at this facility use at least one of these dose optimization techniques: automated exposure control; mA and/or kV adjustment per patient size (includes targeted exams where dose is matched to clinical indication); or iterative reconstruction. COMPARISON: CT Head without contrast 02/16/2021 6:44 PM FINDINGS: Bones/joints: Nonspecific straightening. Trace retrolisthesis of C6 on C7. Vertebral body heights are preserved. Mild degenerative change about the dens. Mild to moderate prevertebral osteophytosis. No acute cervical spine fracture. Discs/Spinal canal/Neural foramina: No definite high-grade central canal stenosis within limitations of technique. Lungs: Lung apices are normal. Pleural spaces: No visible pneumothorax. Soft tissues: Unremarkable. IMPRESSION: No acute cervical spine fracture. Electronically signed by: Kulwant Redd On 02/19/2021 23:09:47 PM
--- NOTE | 2021-02-19 23:12 | REPVR ---
PROCEDURE INFORMATION: Exam: CT Head Without Contrast Exam date and time: 02/19/2021 10:28 PM Age: 50 years old Clinical indication: Injury or trauma; Fall; Blunt trauma (contusions or hematomas); Altered mental status/memory loss TECHNIQUE: Imaging protocol: Computed tomography of the head without contrast. Radiation optimization: All CT scans at this facility use at least one of these dose optimization techniques: automated exposure control; mA and/or kV adjustment per patient size (includes targeted exams where dose is matched to clinical indication); or iterative reconstruction. COMPARISON: CT Head without contrast 02/16/2021 6:44 PM FINDINGS: Brain: Mild volume loss. No acute intracranial hemorrhage, midline shift or intracranial mass effect. Cerebral ventricles: No hydrocephalus. Paranasal sinuses: Mild paranasal sinus disease. Mastoid air cells: Partial opacification of the left mastoid air cells. Bones/joints: Unremarkable. No acute fracture. Soft tissues: Unremarkable. IMPRESSION: No acute intracranial abnormality. Electronically signed by: Kulwant Redd On 02/19/2021 23:11:41 PM
[2021-02-19] MEDS ORDERED: rOPINIRole 2MG TAB PO ONE (23:15)
[2021-02-19] MEDS ORDERED: POTASSIUM CHLORIDE 10 MEQ SR TABLET PO ONE (23:30)
[2021-02-19] MEDS ORDERED: METOCLOPRAMIDE INJ 10MG/2ML VIAL (J2765 PER 1) IV ONE (23:30)
[2021-02-20 01:15] VITALS: BP 138/69
[2021-02-20 02:16] LABS: AMPHETAMINES LEVEL URINE NEGATIVE (NEGATIVE); BARBITURATES URINE NEGATIVE (NEGATIVE); BENZODIAZEPINES URINE NEGATIVE (NEGATIVE); CANNABINOIDS URINE NEGATIVE (NEGATIVE); COCAINE METABOLITE URINE NEGATIVE (NEGATIVE); METHADONE URINE NEGATIVE (NEGATIVE); OPIATES URINE NEGATIVE (NEGATIVE); PHENCYCLIDINE URINE NEGATIVE (NEGATIVE)
--- NOTE | 2021-02-20 05:53 | ECGEPIP ---
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
== END 2021-02-20 02:33 | disposition left against medical advice (07) ==
LOC: M ED 21:28
DX: H60.93 Unspecified otitis externa, bilateral (principal); E11.649 Type 2 diabetes mellitus with hypoglycemia without coma
CPT/HCPCS: 12004; 70450; 72125; 80048; 80076; 80143; 80307; 82077; 82140; 84443; 85025; 90471; 90715; 93005; 93041; 94760; 96374; 96375; 99285; J2765

== ENCOUNTER → 2021-04-09 | Outpatient (REF) | payer MEDICARE, MEDICAID ==
[~2021-04-09] MED LIST changes: -DOXY100C PO; +DOXY100C3 PO; +QUET1TAB17; +QUET1TAB17 PO; -QUET25TA3; -QUET25TA3 PO; -QUET50TA3 PO; +QUET50TA4 PO
[2021-04-09 19:38] LABS: HEMATOCRIT 38.2 % (42.0-52.0); HEMOGLOBIN 12.5 g/dl (13.5-17.5); MEAN CORPUSCULAR HEMOGLOBIN 30.3 pg (27.0-33.0); MEAN CORPUSCULAR HGB CONC 32.7 g/dl (32.0-36.5); MEAN CORPUSCULAR VOLUME 92.5 fl (80.0-96.0); PLATELET COUNT, AUTOMATED 298 10^3/uL (150-450); RED BLOOD COUNT 4.13 10^6/uL (4.30-6.10); WHITE BLOOD COUNT 4.9 10^3/uL (4.0-10.0)
[2021-04-09 19:41] LABS: ALBUMIN 2.9 GM/DL (3.2-5.2); ALT/SGPT 47 U/L (12-78); BILIRUBIN,TOTAL 0.4 MG/DL (0.2-1.0); BLOOD UREA NITROGEN 17 MG/DL (7-18); CALCIUM LEVEL 8.2 MG/DL (8.5-10.1); CARBON DIOXIDE LEVEL 29 MEQ/L (21-32); CHLORIDE LEVEL 106 MEQ/L (98-107); GLOMERULAR FILTRATION RATE > 60.0 (>56); GLUCOSE, FASTING 230 MG/DL (70-100); SODIUM LEVEL 138 MEQ/L (136-145); TOTAL PROTEIN 6.3 GM/DL (6.4-8.2)
[2021-04-09 20:11] LABS: ERYTHROCYTE SEDIMENTATION RATE 31 mm/hr (0-20)
== END ==
LOC: M SHH 19:02
DX: M86.172 Other acute osteomyelitis, left ankle and foot (principal); M06.372 Rheumatoid nodule, left ankle and foot; M14.671 Charcot's joint, right ankle and foot; Z22.322 Carrier or suspected carrier of Methicillin resistant Staphylococcus aureus

== ENCOUNTER → 2021-04-16 | Outpatient (REF) | payer MEDICARE, MEDICAID ==
[2021-04-16 14:13] LABS: HEMOGLOBIN 13.5 g/dl (13.5-17.5); MEAN CORPUSCULAR HGB CONC 33.8 g/dl (32.0-36.5); MEAN CORPUSCULAR VOLUME 91.7 fl (80.0-96.0); PLATELET COUNT, AUTOMATED 287 10^3/uL (150-450); RED BLOOD COUNT 4.36 10^6/uL (4.30-6.10); WHITE BLOOD COUNT 3.9 10^3/uL (4.0-10.0)
[2021-04-16 15:09] LABS: ALBUMIN 3.2 GM/DL (3.2-5.2); ALT/SGPT 49 U/L (12-78); BILIRUBIN,TOTAL 0.3 MG/DL (0.2-1.0); BLOOD UREA NITROGEN 8 MG/DL (7-18); CALCIUM LEVEL 8.7 MG/DL (8.5-10.1); CARBON DIOXIDE LEVEL 31 MEQ/L (21-32); CHLORIDE LEVEL 106 MEQ/L (98-107); CREATININE FOR GFR 0.73 MG/DL (0.70-1.30); GLOMERULAR FILTRATION RATE > 60.0 (>56); GLUCOSE, FASTING 32 MG/DL (70-100); POTASSIUM SERUM 3.9 MEQ/L (3.5-5.1); SODIUM LEVEL 142 MEQ/L (136-145); TOTAL PROTEIN 6.5 GM/DL (6.4-8.2); VANCOMYCIN LEVEL TROUGH 6.1 UG/ML (10.0-20.0)
[2021-04-16 17:37] LABS: ERYTHROCYTE SEDIMENTATION RATE 18 mm/hr (0-20)
== END ==
LOC: M SHH 14:00
DX: M86.172 Other acute osteomyelitis, left ankle and foot (principal); M86.372 Chronic multifocal osteomyelitis, left ankle and foot; M14.671 Charcot's joint, right ankle and foot; Z22.322 Carrier or suspected carrier of Methicillin resistant Staphylococcus aureus

== ENCOUNTER → 2021-04-19 | Outpatient (REF) | payer MEDICARE, MEDICAID ==
[2021-04-19 17:02] LABS: HEMATOCRIT 38.3 % (42.0-52.0); HEMOGLOBIN 13.1 g/dl (13.5-17.5); MEAN CORPUSCULAR HEMOGLOBIN 31.4 pg (27.0-33.0); MEAN CORPUSCULAR HGB CONC 34.2 g/dl (32.0-36.5); MEAN CORPUSCULAR VOLUME 91.8 fl (80.0-96.0); PLATELET COUNT, AUTOMATED 235 10^3/uL (150-450); RED BLOOD COUNT 4.17 10^6/uL (4.30-6.10); WHITE BLOOD COUNT 5.1 10^3/uL (4.0-10.0)
[2021-04-19 17:21] LABS: ALBUMIN 3.1 GM/DL (3.2-5.2); ALT/SGPT 46 U/L (12-78); BILIRUBIN,TOTAL 0.4 MG/DL (0.2-1.0); BLOOD UREA NITROGEN 11 MG/DL (7-18); C REACTIVE PROTEIN QUANTITATIV 1.51 MG/DL (0.00-0.30); CALCIUM LEVEL 8.2 MG/DL (8.5-10.1); CARBON DIOXIDE LEVEL 28 MEQ/L (21-32); CHLORIDE LEVEL 106 MEQ/L (98-107); CREATININE FOR GFR 0.77 MG/DL (0.70-1.30); GLOMERULAR FILTRATION RATE > 60.0 (>56); GLUCOSE, FASTING 193 MG/DL (70-100); POTASSIUM SERUM 3.9 MEQ/L (3.5-5.1); SODIUM LEVEL 138 MEQ/L (136-145); TOTAL PROTEIN 6.4 GM/DL (6.4-8.2); VANCOMYCIN LEVEL TROUGH 9.8 UG/ML (10.0-20.0)
[2021-04-19 17:32] LABS: ERYTHROCYTE SEDIMENTATION RATE 16 mm/hr (0-20)
== END ==
LOC: M SHH 15:46
DX: Z22.322 Carrier or suspected carrier of Methicillin resistant Staphylococcus aureus (principal)

== ENCOUNTER → 2021-04-23 | Outpatient (REF) | payer MEDICARE, MEDICAID ==
[2021-04-23 16:36] LABS: HEMATOCRIT 38.5 % (42.0-52.0); HEMOGLOBIN 12.9 g/dl (13.5-17.5); MEAN CORPUSCULAR HEMOGLOBIN 30.7 pg (27.0-33.0); MEAN CORPUSCULAR HGB CONC 33.5 g/dl (32.0-36.5); MEAN CORPUSCULAR VOLUME 91.7 fl (80.0-96.0); PLATELET COUNT, AUTOMATED 237 10^3/uL (150-450); WHITE BLOOD COUNT 3.3 10^3/uL (4.0-10.0)
[2021-04-23 17:12] LABS: ERYTHROCYTE SEDIMENTATION RATE 16 mm/hr (0-20)
[2021-04-23 17:22] LABS: ALT/SGPT 47 U/L (12-78); BILIRUBIN,TOTAL 0.4 MG/DL (0.2-1.0); BLOOD UREA NITROGEN 11 MG/DL (7-18); C REACTIVE PROTEIN QUANTITATIV 0.69 MG/DL (0.00-0.30); CALCIUM LEVEL 8.9 MG/DL (8.5-10.1); CARBON DIOXIDE LEVEL 28 MEQ/L (21-32); CHLORIDE LEVEL 109 MEQ/L (98-107); CREATININE FOR GFR 0.59 MG/DL (0.70-1.30); GLOMERULAR FILTRATION RATE > 60.0 (>56); GLUCOSE, FASTING 79 MG/DL (70-100); POTASSIUM SERUM 3.8 MEQ/L (3.5-5.1); SODIUM LEVEL 141 MEQ/L (136-145); TOTAL PROTEIN 6.3 GM/DL (6.4-8.2); VANCOMYCIN LEVEL TROUGH 10.3 UG/ML (10.0-20.0)
== END ==
LOC: M SHH 15:50
DX: M86.172 Other acute osteomyelitis, left ankle and foot (principal); M86.372 Chronic multifocal osteomyelitis, left ankle and foot; M14.671 Charcot's joint, right ankle and foot; Z22.322 Carrier or suspected carrier of Methicillin resistant Staphylococcus aureus

== ENCOUNTER → 2021-04-30 | Outpatient (REF) | payer MEDICARE, MEDICAID ==
[2021-04-30 14:51] LABS: HEMATOCRIT 38.2 % (42.0-52.0); HEMOGLOBIN 12.8 g/dl (13.5-17.5); MEAN CORPUSCULAR HGB CONC 33.5 g/dl (32.0-36.5); MEAN CORPUSCULAR VOLUME 92.5 fl (80.0-96.0); PLATELET COUNT, AUTOMATED 212 10^3/uL (150-450); RED BLOOD COUNT 4.13 10^6/uL (4.30-6.10); WHITE BLOOD COUNT 3.5 10^3/uL (4.0-10.0)
[2021-04-30 15:18] LABS: ALBUMIN 2.9 GM/DL (3.2-5.2); ALT/SGPT 52 U/L (12-78); BILIRUBIN,TOTAL 0.3 MG/DL (0.2-1.0); BLOOD UREA NITROGEN 17 MG/DL (7-18); C REACTIVE PROTEIN QUANTITATIV 1.69 MG/DL (0.00-0.30); CALCIUM LEVEL 7.9 MG/DL (8.5-10.1); CARBON DIOXIDE LEVEL 28 MEQ/L (21-32); CHLORIDE LEVEL 104 MEQ/L (98-107); CREATININE FOR GFR 0.99 MG/DL (0.70-1.30); ERYTHROCYTE SEDIMENTATION RATE 12 mm/hr (0-20); GLOMERULAR FILTRATION RATE > 60.0 (>56); GLUCOSE, FASTING 197 MG/DL (70-100); POTASSIUM SERUM 3.7 MEQ/L (3.5-5.1); SODIUM LEVEL 140 MEQ/L (136-145); TOTAL PROTEIN 6.1 GM/DL (6.4-8.2); VANCOMYCIN LEVEL TROUGH < 0.8 UG/ML (10.0-20.0)
== END ==
LOC: M SHH 14:16
DX: M86.172 Other acute osteomyelitis, left ankle and foot (principal); M86.372 Chronic multifocal osteomyelitis, left ankle and foot; M14.672 Charcot's joint, left ankle and foot; Z22.322 Carrier or suspected carrier of Methicillin resistant Staphylococcus aureus

== ENCOUNTER → 2021-06-27 | Outpatient (REF) | payer MEDICARE, MEDICAID ==
[2021-06-27 16:03] LABS: HEMATOCRIT 36.8 % (42.0-52.0); HEMOGLOBIN 12.4 g/dl (13.5-17.5); MEAN CORPUSCULAR HEMOGLOBIN 29.9 pg (27.0-33.0); MEAN CORPUSCULAR HGB CONC 33.7 g/dl (32.0-36.5); MEAN CORPUSCULAR VOLUME 88.7 fl (80.0-96.0); PLATELET COUNT, AUTOMATED 234 10^3/uL (150-450); RED BLOOD COUNT 4.15 10^6/uL (4.30-6.10); WHITE BLOOD COUNT 3.4 10^3/uL (4.0-10.0)
[2021-06-27 16:07] LABS: ALBUMIN 3.4 GM/DL (3.2-5.2); ALT/SGPT 72 U/L (12-78); BILIRUBIN,TOTAL 0.3 MG/DL (0.2-1.0); BLOOD UREA NITROGEN 16 MG/DL (7-18); C REACTIVE PROTEIN QUANTITATIV 1.19 MG/DL (0.00-0.30); CALCIUM LEVEL 8.5 MG/DL (8.5-10.1); CARBON DIOXIDE LEVEL 29 MEQ/L (21-32); CHLORIDE LEVEL 102 MEQ/L (98-107); CREATININE FOR GFR 1.17 MG/DL (0.70-1.30); GLOMERULAR FILTRATION RATE > 60.0 (>56); GLUCOSE, FASTING 320 MG/DL (70-100); POTASSIUM SERUM 3.7 MEQ/L (3.5-5.1); SODIUM LEVEL 137 MEQ/L (136-145); TOTAL PROTEIN 6.7 GM/DL (6.4-8.2)
[2021-06-27 16:37] LABS: ERYTHROCYTE SEDIMENTATION RATE 21 mm/hr (0-20)
== END ==
LOC: M LAB REF 15:39
PROVIDERS: ATTEND Hospitalist
DX: M86.372 Chronic multifocal osteomyelitis, left ankle and foot (principal); B96.29 Other Escherichia coli [E. coli] as the cause of diseases classified elsewhere; L03.032 Cellulitis of left toe; Z89.422 Acquired absence of other left toe(s); B95.62 Methicillin resistant Staphylococcus aureus infection as the cause of diseases classified elsewhere

== ENCOUNTER 2022-01-05 15:41 | Emergency (ER) | payer MEDICAID, MEDICARE ==
[~2022-01-05] VITALS: Ht 172.7 cm; Wt 77.8 kg
[~2022-01-05 15:41] MED LIST changes: -CITA10TA5 PO; +CITA10TA7 PO; -CITA40TA4 PO; +CITA40TA7 PO; -D31000TA2 PO; +LOSA25TA13 PO; -LOSA25TA14 PO; +VITA100093 PO
[2022-01-05] MEDS ORDERED: ISOVUE-370 76% 100ML VIAL As Ordered ONE (15:54)
[2022-01-05 16:11] LABS: BASO # 0.1 10^3/uL (0.0-0.2); BASO % 1.1 % (0.0-1.0); EOS # 0.2 10^3/uL (0.0-0.5); EOS % 5.1 % (0.0-3.0); HEMATOCRIT 34.4 % (42.0-52.0); HEMOGLOBIN 11.9 g/dl (13.5-17.5); LYMPH % 21.4 % (24.0-44.0); MEAN CORPUSCULAR HEMOGLOBIN 31.3 pg (27.0-33.0); MEAN CORPUSCULAR HGB CONC 34.6 g/dl (32.0-36.5); MEAN CORPUSCULAR VOLUME 90.5 fl (80.0-96.0); MONO # 0.2 10^3/uL (0.0-0.8); MONO % 5.3 % (2.0-8.0); NEUTROPHILS % 66.9 % (36.0-66.0); PLATELET COUNT, AUTOMATED 286 10^3/uL (150-450); WHITE BLOOD COUNT 4.5 10^3/uL (4.0-10.0)
[2022-01-05 16:22] LABS: INR 0.9; PROTHROMBIN TIME 12.6 SECONDS (12.7-14.5)
[2022-01-05 16:23] LABS: PARTIAL THROMBOPLASTIN TIME 27.5 SECONDS (25.9-37.0)
[2022-01-05 16:30] LABS: ETHYL ALCOHOL (ETHANOL) < 0.003 % (0.000-0.010)
[2022-01-05 16:36] LABS: MB/CK RELATIVE INDEX 2.56 (< OR =4)
[2022-01-05 17:15] LABS: ALBUMIN 2.8 GM/DL (3.2-5.2); ALT/SGPT 39 U/L (12-78); BILIRUBIN,DIRECT 0.1 MG/DL (0.0-0.2); BILIRUBIN,TOTAL 0.2 MG/DL (0.2-1.0); LIPASE 52 U/L (73-393); TOTAL PROTEIN 5.9 GM/DL (6.4-8.2)
[2022-01-05 17:26] VITALS: BP 105/65
[2022-01-05 18:08] LABS: RSV AMPLIFICATION NEGATIVE (NEGATIVE)
== END 2022-01-05 18:59 | disposition home or self-care (01) ==
LOC: M ED 15:41
DX: R10.13 Epigastric pain (principal); E11.9 Type 2 diabetes mellitus without complications; I10 Essential (primary) hypertension; E78.5 Hyperlipidemia, unspecified; F31.9 Bipolar disorder, unspecified; F17.200 Nicotine dependence, unspecified, uncomplicated; F10.10 Alcohol abuse, uncomplicated; Z98.84 Bariatric surgery status; Z86.79 Personal history of other diseases of the circulatory system; Z79.4 Long term (current) use of insulin; Z79.899 Other long term (current) drug therapy
CPT/HCPCS: 36415; 70450; 70496; 70498; 71045; 80047; 80076; 82077; 82550; 82553; 83690; 84484; 85025; 85610; 85730; 87631; 93005; 93041; 94760; 99285; Q9967

== ENCOUNTER → 2022-03-06 | Outpatient (CLI) | payer MEDICARE ==
[2022-03-06 15:02] LABS: HEMATOCRIT 35.5 % (42.0-52.0); HEMOGLOBIN 11.3 g/dl (13.5-17.5); MEAN CORPUSCULAR HEMOGLOBIN 29.7 pg (27.0-33.0); MEAN CORPUSCULAR HGB CONC 31.8 g/dl (32.0-36.5); MEAN CORPUSCULAR VOLUME 93.4 fl (80.0-96.0); PLATELET COUNT, AUTOMATED 453 10^3/uL (150-450); WHITE BLOOD COUNT 7.4 10^3/uL (4.0-10.0)
[2022-03-06 15:28] LABS: APPEARANCE, URINE MANUAL CLEAR (CLEAR); COLOR, URINE MANUAL YELLOW (YELLOW)
[2022-03-06 15:29] LABS: PROTEIN, URINE MANUAL 2+ mg/dL (NEGATIVE); SPECIFIC GRAVITY,URINE MANUAL 1.025 (1.002-1.035)
[2022-03-06 15:30] LABS: BILIRUBIN, URINE MANUAL NEGATIVE (NEGATIVE); BLOOD URINE MANUAL POSITIVE (NEGATIVE); GLUCOSE, URINE (UA) MANUAL 1+(100 MG/DL) mg/dL (NEGATIVE); KETONE, URINE MANUAL NEGATIVE (NEGATIVE); LEUKOCYTE ESTERASE, URINE MAN NEGATIVE (NEGATIVE); NITRITE, URINE MANUAL NEGATIVE (NEGATIVE); UROBILINOGEN, URINE MANUAL NORMAL (NORMAL)
[2022-03-06 15:33] LABS: HEMOGLOBIN A1c 8.6 %
[2022-03-06 15:54] LABS: ALT/SGPT 31 U/L (12-78); BILIRUBIN,TOTAL 0.3 MG/DL (0.2-1.0); BLOOD UREA NITROGEN 19 MG/DL (7-18); CALCIUM LEVEL 9.1 MG/DL (8.5-10.1); CARBON DIOXIDE LEVEL 28 MEQ/L (21-32); CHLORIDE LEVEL 106 MEQ/L (98-107); CREATININE FOR GFR 0.98 MG/DL (0.70-1.30); GLOMERULAR FILTRATION RATE > 60.0 (>56); GLUCOSE, FASTING 190 MG/DL (70-100); SODIUM LEVEL 137 MEQ/L (136-145); TRIGLYCERIDES LEVEL 64 MG/DL (<150)
[2022-03-06 15:55] LABS: ALBUMIN 2.6 GM/DL (3.2-5.2); CHOLESTEROL LEVEL 96 MG/DL (<200); CHOLESTEROL RISK RATIO 2.823 (<5); HDL CHOLESTEROL 34 MG/DL (>40); LDL CHOLESTEROL 49 MG/DL (<100); NON-HDL-C 62 MG/DL; THYROID STIMULATING HORMONE 0.444 uIU/ML (0.358-3.740); TOTAL PROTEIN 6.5 GM/DL (6.4-8.2)
[2022-03-06 16:01] LABS: BACTERIA, URINE NONE SEEN; MUCUS, URINE SMALL AMOUNT (NEGATIVE); SPERM, URINE SMALL AMOUNT; SQUAMOUS EPITHELIAL CELL URINE SMALL AMOUNT /hpf (SMALL AMT); WBC, URINE NONE SEEN /hpf (0-3)
[2022-03-06 17:17] LABS: MAU/CREAT RATIO 562.1 MCG/MG (0.0-30.0)
== END ==
LOC: M PLALAB 10:12
PROVIDERS: ATTEND Internal Medicine
DX: R80.9 Proteinuria, unspecified (principal); E10.42 Type 1 diabetes mellitus with diabetic polyneuropathy; E78.5 Hyperlipidemia, unspecified

== ENCOUNTER → 2022-03-06 | Outpatient (CLI) | payer MEDICARE ==
[2022-03-07 10:52] LABS: RHEUMATOID FACTOR QUANT 23.2 IU/ML (<15.0); THYROID STIMULATING HORMONE 0.439 uIU/ML (0.358-3.740); TOTAL PROTEIN 6.5 GM/DL (6.4-8.2)
[2022-03-07 11:02] LABS: VITAMIN B12 LEVEL 914 PG/ML (247-911)
[2022-03-07 13:12] LABS: ALBUMIN % 42.6 % (55.8-66.1); ALPHA-1-GLOBULIN % 8.7 % (2.9-4.9); ALPHA-2-GLOBULINS % 19.2 % (7.1-11.8); BETA-2-GLOBULINS % 6.6 % (3.2-6.5); GAMMA GLOBULIN % 17.9 % (11.1-18.8)
[2022-03-07 13:34] LABS: ALBUMIN 2.77 GM/DL (3.29-5.55); ALPHA-1-GLOBULINS 0.57 GM/DL (0.17-0.41); ALPHA-2-GLOBULINS 1.25 GM/DL (0.42-0.99); BETA-1-GLOBULINS 0.33 GM/DL (0.28-0.60); BETA-2-GLOBULINS 0.43 GM/DL (0.19-0.55); GAMMA GLOBULINS 1.16 GM/DL (0.65-1.58)
[2022-03-11 12:07] LABS: VITAMIN B1 LEVEL WHOLE BLOOD 147.1 nmol/L (66.5-200.0); VITAMIN B6,PYRIDOXAL PHOSPHATE 3.9 ug/L (3.4-65.2)
== END ==
LOC: M PLALAB 10:15
PROVIDERS: ATTEND Psychiatry & Neurology Neurology
DX: E10.42 Type 1 diabetes mellitus with diabetic polyneuropathy (principal)

== ENCOUNTER 2022-04-27 14:38 | Emergency (ER) | payer MEDICARE ==
[~2022-04-27] VITALS: Ht 177.8 cm; Wt 75.0 kg
[2022-04-27 17:05] LABS: BASO # 0.1 10^3/uL (0.0-0.2); BASO % 0.9 % (0.0-1.0); EOS # 0.3 10^3/uL (0.0-0.5); EOS % 5.3 % (0.0-3.0); HEMOGLOBIN 12.5 g/dl (13.5-17.5); LYMPH # 1.4 10^3/uL (1.5-5.0); LYMPH % 26.2 % (24.0-44.0); MEAN CORPUSCULAR HEMOGLOBIN 29.8 pg (27.0-33.0); MEAN CORPUSCULAR HGB CONC 32.9 g/dl (32.0-36.5); MEAN CORPUSCULAR VOLUME 90.5 fl (80.0-96.0); MONO # 0.5 10^3/uL (0.0-0.8); MONO % 9.8 % (2.0-8.0); NEUTROPHILS # 3.2 10^3/uL (1.5-8.5); NEUTROPHILS % 57.6 % (36.0-66.0); PLATELET COUNT, AUTOMATED 305 10^3/uL (150-450); WHITE BLOOD COUNT 5.5 10^3/uL (4.0-10.0)
[2022-04-27 17:32] LABS: INR 0.95; PROTHROMBIN TIME 13.1 SECONDS (12.7-14.5)
[2022-04-27 17:33] LABS: PARTIAL THROMBOPLASTIN TIME 26.9 SECONDS (25.9-37.0)
[2022-04-27 17:44] LABS: RSV AMPLIFICATION NEGATIVE (NEGATIVE)
[2022-04-27 17:46] LABS: BLOOD UREA NITROGEN 12 MG/DL (7-18); CALCIUM LEVEL 8.6 MG/DL (8.5-10.1); CARBON DIOXIDE LEVEL 32 MEQ/L (21-32); CHLORIDE LEVEL 108 MEQ/L (98-107); CREATININE FOR GFR 0.71 MG/DL (0.70-1.30); GLOMERULAR FILTRATION RATE > 60.0 (>56); GLUCOSE, FASTING 32 MG/DL (70-100); POTASSIUM SERUM 3.2 MEQ/L (3.5-5.1); SODIUM LEVEL 144 MEQ/L (136-145)
[2022-04-27 21:53] VITALS: BP 119/65
== END 2022-04-27 22:06 | disposition short-term general hospital (02) ==
LOC: EDBD 14:38 → M ED 14:38
DX: T87.81 Dehiscence of amputation stump (principal); E78.5 Hyperlipidemia, unspecified; E11.9 Type 2 diabetes mellitus without complications; F17.200 Nicotine dependence, unspecified, uncomplicated; F31.9 Bipolar disorder, unspecified; Z98.84 Bariatric surgery status; Z86.79 Personal history of other diseases of the circulatory system; Z79.82 Long term (current) use of aspirin; Z79.4 Long term (current) use of insulin; Z79.899 Other long term (current) drug therapy

== ENCOUNTER 2022-07-31 12:14 | Outpatient (CLI) | payer MEDICARE, MEDICAID ==
[~2022-07-31] VITALS: Ht 185.4 cm; Wt 80.5 kg
[2022-07-31 12:30] VITALS: BP 108/72
[2022-07-31] MEDS ORDERED: SODIUM CHLORIDE 0.9% INJ 10 ML SYR IV PRN (12:30)
[2022-07-31 13:07] LABS: BASO # 0.1 10^3/uL (0.0-0.2); BASO % 1.4 % (0.0-1.0); EOS # 0.3 10^3/uL (0.0-0.5); EOS % 7.2 % (0.0-3.0); HEMATOCRIT 38.7 % (42.0-52.0); HEMOGLOBIN 13.1 g/dl (13.5-17.5); LYMPH % 28.7 % (24.0-44.0); MEAN CORPUSCULAR HGB CONC 33.9 g/dl (32.0-36.5); MEAN CORPUSCULAR VOLUME 88.6 fl (80.0-96.0); MONO # 0.3 10^3/uL (0.0-0.8); MONO % 8.9 % (2.0-8.0); NEUTROPHILS # 1.9 10^3/uL (1.5-8.5); NEUTROPHILS % 53.5 % (36.0-66.0); PLATELET COUNT, AUTOMATED 275 10^3/uL (150-450); RED BLOOD COUNT 4.37 10^6/uL (4.30-6.10); WHITE BLOOD COUNT 3.6 10^3/uL (4.0-10.0)
[2022-07-31 13:23] LABS: ALBUMIN 3.4 G/DL (3.2-5.2); ALKALINE PHOSPHATASE 101 U/L (46-116); ALT/SGPT 46 U/L (7.0-40); AST/SGOT 30 U/L (<34); BILIRUBIN,TOTAL 0.5 MG/DL (0.3-1.2); BLOOD UREA NITROGEN 20 MG/DL (9-23); CARBON DIOXIDE LEVEL 30 MMOL/L (20-31); CHLORIDE LEVEL 105 MMOL/L (98-107); CREATININE FOR GFR 0.84 MG/DL (0.70-1.30); GLOMERULAR FILTRATION RATE > 60.0 (>56); GLUCOSE, FASTING 115 MG/DL (60-100); POTASSIUM SERUM 4.2 MMOL/L (3.5-5.1); SODIUM LEVEL 140 MMOL/L (136-145); TOTAL PROTEIN 6.6 G/DL (5.7-8.2)
== END 2022-07-31 12:55 | disposition home or self-care (01) ==
LOC: M INFU 12:14
PROVIDERS: ATTEND Internal Medicine Infectious Disease
DX: H70.92 Unspecified mastoiditis, left ear (principal)

== ENCOUNTER 2022-08-07 15:05 | Outpatient (CLI) | payer MEDICARE ==
[~2022-08-07] VITALS: Ht 185.4 cm; Wt 80.5 kg
[~2022-08-07 15:05] MED LIST changes: +SODIUM CHLORIDE 0.9% INJ 10 ML SYR IV PRN
[2022-08-07 15:40] LABS: BASO # 0.1 10^3/uL (0.0-0.2); BASO % 1.3 % (0.0-1.0); EOS # 0.3 10^3/uL (0.0-0.5); EOS % 6.4 % (0.0-3.0); HEMATOCRIT 37.1 % (42.0-52.0); HEMOGLOBIN 12.5 g/dl (13.5-17.5); LYMPH # 1.1 10^3/uL (1.5-5.0); LYMPH % 24.8 % (24.0-44.0); MEAN CORPUSCULAR HGB CONC 33.7 g/dl (32.0-36.5); MEAN CORPUSCULAR VOLUME 89.2 fl (80.0-96.0); MONO # 0.3 10^3/uL (0.0-0.8); MONO % 7.3 % (2.0-8.0); NEUTROPHILS # 2.7 10^3/uL (1.5-8.5); PLATELET COUNT, AUTOMATED 263 10^3/uL (150-450); RED BLOOD COUNT 4.16 10^6/uL (4.30-6.10); WHITE BLOOD COUNT 4.6 10^3/uL (4.0-10.0)
[2022-08-07 16:00] VITALS: BP 138/73
[2022-08-07 16:09] LABS: ALBUMIN 3.4 G/DL (3.2-5.2); ALKALINE PHOSPHATASE 95 U/L (46-116); ALT/SGPT 62 U/L (7.0-40); AST/SGOT 48 U/L (<34); BILIRUBIN,TOTAL 0.5 MG/DL (0.3-1.2); BLOOD UREA NITROGEN 10 MG/DL (9-23); CALCIUM LEVEL 8.7 MG/DL (8.5-10.1); CARBON DIOXIDE LEVEL 28 MMOL/L (20-31); CHLORIDE LEVEL 105 MMOL/L (98-107); GLOMERULAR FILTRATION RATE > 60.0 (>56); GLUCOSE, FASTING 267 MG/DL (60-100); POTASSIUM SERUM 4.4 MMOL/L (3.5-5.1); SODIUM LEVEL 139 MMOL/L (136-145); TOTAL PROTEIN 6.2 G/DL (5.7-8.2)
== END 2022-08-07 16:00 | disposition home or self-care (01) ==
LOC: M INFU 15:05
PROVIDERS: ATTEND Internal Medicine Infectious Disease
DX: H70.92 Unspecified mastoiditis, left ear (principal)

== ENCOUNTER 2022-08-09 09:25 | Emergency (ER) | payer MEDICARE ==
[~2022-08-09] VITALS: Ht 177.8 cm; Wt 72.7 kg
[~2022-08-09 09:25] MED LIST changes: -SODIUM CHLORIDE 0.9% INJ 10 ML SYR IV PRN
[2022-08-09] MEDS ORDERED: [UNRECOGNIZED DRUG - CODE] (10:02)
[2022-08-09] MEDS ORDERED: LIDOCAINE 1% MDV 20ML VIAL As Ordered ONE (13:40)
[2022-08-09 15:09] VITALS: BP 129/66
== END 2022-08-09 15:21 | disposition home or self-care (01) ==
LOC: M ED 09:25
DX: Z45.2 Encounter for adjustment and management of vascular access device (principal); I10 Essential (primary) hypertension; K21.9 Gastro-esophageal reflux disease without esophagitis; F17.200 Nicotine dependence, unspecified, uncomplicated; E11.9 Type 2 diabetes mellitus without complications; Z98.84 Bariatric surgery status; Z79.82 Long term (current) use of aspirin; Z79.4 Long term (current) use of insulin; Z79.811 Long term (current) use of aromatase inhibitors; Z79.899 Other long term (current) drug therapy
CPT/HCPCS: 76937; 99283; C1751

== ENCOUNTER 2022-08-16 16:20 | Outpatient (CLI) | payer MEDICARE ==
[2022-08-16 16:20] VITALS: BP 147/79
[~2022-08-16 16:20] MED LIST changes: +SODIUM CHLORIDE 0.9% INJ 10 ML SYR IV PRN; +SODIUM CHLORIDE 0.9% INJ 10 ML SYR IV SCH; +[UNRECOGNIZED DRUG - CODE]
[2022-08-16] MEDS ORDERED: SODIUM CHLORIDE 0.9% INJ 10 ML SYR IV PRN (16:30)
[2022-08-16 16:59] LABS: BASO # 0.1 10^3/uL (0.0-0.2); BASO % 1.4 % (0.0-1.0); EOS # 0.4 10^3/uL (0.0-0.5); EOS % 9.2 % (0.0-3.0); HEMATOCRIT 38.6 % (42.0-52.0); HEMOGLOBIN 12.8 g/dl (13.5-17.5); LYMPH # 1.1 10^3/uL (1.5-5.0); LYMPH % 25.8 % (24.0-44.0); MEAN CORPUSCULAR HEMOGLOBIN 29.8 pg (27.0-33.0); MEAN CORPUSCULAR HGB CONC 33.2 g/dl (32.0-36.5); MONO # 0.3 10^3/uL (0.0-0.8); MONO % 8.2 % (2.0-8.0); NEUTROPHILS # 2.3 10^3/uL (1.5-8.5); NEUTROPHILS % 55.2 % (36.0-66.0); PLATELET COUNT, AUTOMATED 214 10^3/uL (150-450); RED BLOOD COUNT 4.29 10^6/uL (4.30-6.10); WHITE BLOOD COUNT 4.2 10^3/uL (4.0-10.0)
[2022-08-16 17:05] LABS: ALBUMIN 3.3 G/DL (3.2-5.2); ALKALINE PHOSPHATASE 95 U/L (46-116); ALT/SGPT 52 U/L (7.0-40); AST/SGOT 29 U/L (<34); BILIRUBIN,TOTAL 0.5 MG/DL (0.3-1.2); BLOOD UREA NITROGEN 18 MG/DL (9-23); CALCIUM LEVEL 8.8 MG/DL (8.5-10.1); CARBON DIOXIDE LEVEL 29 MMOL/L (20-31); CHLORIDE LEVEL 105 MMOL/L (98-107); CREATININE FOR GFR 0.83 MG/DL (0.70-1.30); GLOMERULAR FILTRATION RATE > 60.0 (>56); GLUCOSE, FASTING 255 MG/DL (60-100); POTASSIUM SERUM 3.7 MMOL/L (3.5-5.1); SODIUM LEVEL 139 MMOL/L (136-145); TOTAL PROTEIN 6.3 G/DL (5.7-8.2)
[2022-08-16] MEDS ORDERED: SODIUM CHLORIDE 0.9% INJ 10 ML SYR IV SCH (18:00)
== END 2022-08-16 16:45 | disposition home or self-care (01) ==
LOC: M INFU 16:20
PROVIDERS: ATTEND Internal Medicine Infectious Disease
DX: H70.92 Unspecified mastoiditis, left ear (principal); Z79.2 Long term (current) use of antibiotics

== ENCOUNTER 2022-08-21 15:10 | Outpatient (CLI) | payer MEDICARE ==
[~2022-08-21 15:10] MED LIST changes: -SODIUM CHLORIDE 0.9% INJ 10 ML SYR IV PRN
[2022-08-21 15:46] LABS: BASO # 0.1 10^3/uL (0.0-0.2); BASO % 1.5 % (0.0-1.0); EOS # 0.3 10^3/uL (0.0-0.5); EOS % 6.2 % (0.0-3.0); HEMATOCRIT 38.6 % (42.0-52.0); HEMOGLOBIN 13.2 g/dl (13.5-17.5); LYMPH % 17.6 % (24.0-44.0); MEAN CORPUSCULAR HEMOGLOBIN 30.6 pg (27.0-33.0); MEAN CORPUSCULAR HGB CONC 34.2 g/dl (32.0-36.5); MEAN CORPUSCULAR VOLUME 89.4 fl (80.0-96.0); MONO # 0.3 10^3/uL (0.0-0.8); MONO % 5.9 % (2.0-8.0); NEUTROPHILS # 3.7 10^3/uL (1.5-8.5); NEUTROPHILS % 68.4 % (36.0-66.0); PLATELET COUNT, AUTOMATED 206 10^3/uL (150-450); RED BLOOD COUNT 4.32 10^6/uL (4.30-6.10); WHITE BLOOD COUNT 5.5 10^3/uL (4.0-10.0)
[2022-08-21 16:20] LABS: ALBUMIN 3.5 G/DL (3.2-5.2); ALKALINE PHOSPHATASE 116 U/L (46-116); ALT/SGPT 68 U/L (7.0-40); AST/SGOT 30 U/L (<34); BILIRUBIN,TOTAL 0.6 MG/DL (0.3-1.2); BLOOD UREA NITROGEN 20 MG/DL (9-23); CALCIUM LEVEL 8.9 MG/DL (8.5-10.1); CARBON DIOXIDE LEVEL 29 MMOL/L (20-31); CHLORIDE LEVEL 100 MMOL/L (98-107); CREATININE FOR GFR 1.09 MG/DL (0.70-1.30); GLOMERULAR FILTRATION RATE > 60.0 (>56); GLUCOSE, FASTING 518 MG/DL (60-100); POTASSIUM SERUM 4.9 MMOL/L (3.5-5.1); SODIUM LEVEL 134 MMOL/L (136-145); TOTAL PROTEIN 6.6 G/DL (5.7-8.2)
== END 2022-08-21 15:40 | disposition home or self-care (01) ==
LOC: M INFU 15:10
PROVIDERS: ATTEND Internal Medicine Infectious Disease
DX: H70.92 Unspecified mastoiditis, left ear (principal)

== ENCOUNTER 2022-08-28 14:30 | Outpatient (CLI) | payer MEDICARE ==
[2022-08-28 14:30] VITALS: BP 135/79
[~2022-08-28 14:30] MED LIST changes: +SODIUM CHLORIDE 0.9% INJ 10 ML SYR IV PRN
[2022-08-28 15:00] LABS: BASO # 0.1 10^3/uL (0.0-0.2); BASO % 0.9 % (0.0-1.0); EOS # 0.4 10^3/uL (0.0-0.5); EOS % 6.5 % (0.0-3.0); HEMATOCRIT 39.1 % (42.0-52.0); HEMOGLOBIN 13.3 g/dl (13.5-17.5); LYMPH # 1.2 10^3/uL (1.5-5.0); LYMPH % 21.5 % (24.0-44.0); MEAN CORPUSCULAR HEMOGLOBIN 30.4 pg (27.0-33.0); MEAN CORPUSCULAR VOLUME 89.3 fl (80.0-96.0); MONO # 0.3 10^3/uL (0.0-0.8); MONO % 5.7 % (2.0-8.0); NEUTROPHILS # 3.6 10^3/uL (1.5-8.5); NEUTROPHILS % 65.2 % (36.0-66.0); PLATELET COUNT, AUTOMATED 226 10^3/uL (150-450); RED BLOOD COUNT 4.38 10^6/uL (4.30-6.10); WHITE BLOOD COUNT 5.6 10^3/uL (4.0-10.0)
[2022-08-28 15:32] LABS: ALBUMIN 3.2 G/DL (3.2-5.2); ALKALINE PHOSPHATASE 115 U/L (46-116); ALT/SGPT 78 U/L (7.0-40); AST/SGOT 35 U/L (<34); BILIRUBIN,TOTAL 0.5 MG/DL (0.3-1.2); BLOOD UREA NITROGEN 23 MG/DL (9-23); CALCIUM LEVEL 8.9 MG/DL (8.5-10.1); CARBON DIOXIDE LEVEL 30 MMOL/L (20-31); CHLORIDE LEVEL 104 MMOL/L (98-107); CREATININE FOR GFR 1.08 MG/DL (0.70-1.30); GLOMERULAR FILTRATION RATE > 60.0 (>56); GLUCOSE, FASTING 223 MG/DL (60-100); POTASSIUM SERUM 3.8 MMOL/L (3.5-5.1); SODIUM LEVEL 140 MMOL/L (136-145)
== END 2022-08-28 15:00 | disposition home or self-care (01) ==
LOC: M INFU 14:30
PROVIDERS: ATTEND Internal Medicine Infectious Disease
DX: H70.92 Unspecified mastoiditis, left ear (principal)

== ENCOUNTER → 2023-01-10 | Outpatient (REF) | payer MEDICARE ==
[~2023-01-10] MED LIST changes: +CYAN-1 PO; -CYAN100050 PO; +LORA1TAB23 PO; -LORA1TAB4 PO; -SODIUM CHLORIDE 0.9% INJ 10 ML SYR IV PRN; -SODIUM CHLORIDE 0.9% INJ 10 ML SYR IV SCH
== END ==
LOC: M LAB REF 11:32
PROVIDERS: ATTEND Surgery
DX: E11.621 Type 2 diabetes mellitus with foot ulcer (principal)

== ENCOUNTER → 2023-01-13 | Outpatient (REF) | payer MEDICARE ==
[2023-01-13 12:49] LABS: BASO # 0.1 10^3/uL (0.0-0.2); BASO % 1.3 % (0.0-1.0); EOS # 0.5 10^3/uL (0.0-0.5); EOS % 10.7 % (0.0-3.0); HEMATOCRIT 39.3 % (42.0-52.0); HEMOGLOBIN 12.9 g/dl (13.5-17.5); LYMPH # 0.8 10^3/uL (1.5-5.0); MEAN CORPUSCULAR HEMOGLOBIN 30.3 pg (27.0-33.0); MEAN CORPUSCULAR HGB CONC 32.8 g/dl (32.0-36.5); MEAN CORPUSCULAR VOLUME 92.3 fl (80.0-96.0); MONO # 0.3 10^3/uL (0.0-0.8); MONO % 7.1 % (2.0-8.0); NEUTROPHILS % 63.7 % (36.0-66.0); PLATELET COUNT, AUTOMATED 193 10^3/uL (150-450); RED BLOOD COUNT 4.26 10^6/uL (4.30-6.10); WHITE BLOOD COUNT 4.8 10^3/uL (4.0-10.0)
[2023-01-13 12:58] LABS: ERYTHROCYTE SEDIMENTATION RATE 8 mm/hr (0-20)
[2023-01-13 13:22] LABS: VANCOMYCIN LEVEL TROUGH 22.6 UG/ML (10.0-20.0)
[2023-01-13 13:24] LABS: ALBUMIN 3.3 G/DL (3.2-5.2); ALKALINE PHOSPHATASE 178 U/L (46-116); ALT/SGPT 144 U/L (7.0-40); AST/SGOT 85 U/L (<34); BILIRUBIN,TOTAL 0.4 MG/DL (0.3-1.2); BLOOD UREA NITROGEN 14 MG/DL (9-23); C REACTIVE PROTEIN QUANTITATIV < 0.40 MG/DL (<1.0); CALCIUM LEVEL 8.2 MG/DL (8.5-10.1); CARBON DIOXIDE LEVEL 28 MMOL/L (20-31); CHLORIDE LEVEL 102 MMOL/L (98-107); CREATININE FOR GFR 0.93 MG/DL (0.70-1.30); GLOMERULAR FILTRATION RATE > 60.0 (>56); GLUCOSE, FASTING 254 MG/DL (60-100); POTASSIUM SERUM 3.9 MMOL/L (3.5-5.1); SODIUM LEVEL 135 MMOL/L (136-145); TOTAL PROTEIN 6.3 G/DL (5.7-8.2)
[2023-01-13 13:25] LABS: PREALBUMIN 23.7 MG/DL (10.0-40.0)
== END ==
LOC: M LAB REF 12:16
PROVIDERS: ATTEND Surgery
DX: E11.621 Type 2 diabetes mellitus with foot ulcer (principal)

== ENCOUNTER 2023-12-29 12:44 | Emergency (ER) | payer MEDICARE ==
[~2023-12-29] VITALS: Ht 177.8 cm; Wt 79.5 kg
[~2023-12-29 12:44] MED LIST changes: +IRBE150T27 PO; -IRBE150T7 PO; +IRBE75TA11 PO; -IRBE75TA4 PO; -LUNE3TAB36 PO; +LUNE3TAB50 PO; +MECL-209 PO; -MECL1TAB31 PO; -MIRT-60 PO; -MIRT-62 PO; +MIRT-88 PO; +MIRT-89 PO; -ROPI0.253 PO; -ROPI1TAB3 PO; +ROPI1TAB73 PO; -ROPI2TAB3 PO; +ROPI2TAB46 PO; -ROPI4TAB3 PO; +ROPI4TAB36 PO; +ROPI5TAB19 PO; +[UNRECOGNIZED DRUG - CODE]; -[UNRECOGNIZED DRUG - CODE]; +[UNRECOGNIZED DRUG - CODE] PO; -[UNRECOGNIZED DRUG - CODE] PO
[2023-12-29 14:15] LABS: BASO % 0.5 % (0.0-1.0); EOS # 0.2 10^3/uL (0.0-0.5); EOS % 2.3 % (0.0-3.0); HEMATOCRIT 32.2 % (42.0-52.0); HEMOGLOBIN 11.1 g/dl (13.5-17.5); LYMPH # 0.8 10^3/uL (1.5-5.0); LYMPH % 9.3 % (24.0-44.0); MEAN CORPUSCULAR HEMOGLOBIN 31.4 pg (27.0-33.0); MEAN CORPUSCULAR HGB CONC 34.5 g/dl (32.0-36.5); MONO # 0.8 10^3/uL (0.0-0.8); NEUTROPHILS # 6.8 10^3/uL (1.5-8.5); NEUTROPHILS % 78.8 % (36.0-66.0); PLATELET COUNT, AUTOMATED 226 10^3/uL (150-450); RED BLOOD COUNT 3.54 10^6/uL (4.30-6.10); WHITE BLOOD COUNT 8.6 10^3/uL (4.0-10.0)
[2023-12-29 14:24] LABS: ERYTHROCYTE SEDIMENTATION RATE 67 mm/hr (0-20)
[2023-12-29 14:29] LABS: INR 1.06; PARTIAL THROMBOPLASTIN TIME 26.6 SECONDS (24.8-34.2); PROTHROMBIN TIME 13.5 SECONDS (12.5-14.5)
[2023-12-29 14:49] LABS: ALBUMIN 2.4 G/DL (3.2-5.2); ALKALINE PHOSPHATASE 151 U/L (46-116); ALT/SGPT 62 U/L (7.0-40); AST/SGOT 45 U/L (<34); BILIRUBIN,DIRECT 0.2 MG/DL (<0.4); BILIRUBIN,TOTAL 0.5 MG/DL (0.3-1.2); BLOOD UREA NITROGEN 17 MG/DL (9-23); CALCIUM LEVEL 8.3 MG/DL (8.5-10.1); CARBON DIOXIDE LEVEL 25 MMOL/L (20-31); CHLORIDE LEVEL 103 MMOL/L (98-107); CREATININE FOR GFR 0.94 MG/DL (0.70-1.30); GLOMERULAR FILTRATION RATE > 60.0 (>56); GLUCOSE, FASTING 171 MG/DL (60-100); SODIUM LEVEL 137 MMOL/L (136-145); TOTAL PROTEIN 6.1 G/DL (5.7-8.2)
[2023-12-29 14:55] LABS: PROCALCITONIN 0.41 ng/ml
[2023-12-29 17:39] VITALS: BP 107/55; TEMP 100.9; O2SAT 96
== END 2023-12-29 17:47 | disposition left against medical advice (07) ==
LOC: M ED 12:44
DX: T81.49XA Infection following a procedure, other surgical site, initial encounter (principal); Z89.421 Acquired absence of other right toe(s); E11.9 Type 2 diabetes mellitus without complications; I10 Essential (primary) hypertension; E78.5 Hyperlipidemia, unspecified; F17.200 Nicotine dependence, unspecified, uncomplicated; Z86.79 Personal history of other diseases of the circulatory system; Z98.84 Bariatric surgery status; Z79.82 Long term (current) use of aspirin; Z79.02 Long term (current) use of antithrombotics/antiplatelets; Z79.4 Long term (current) use of insulin; Z79.899 Other long term (current) drug therapy; Z53.9 Procedure and treatment not carried out, unspecified reason

== ENCOUNTER → 2025-04-12 | Outpatient (REF) | payer MEDICARE, MEDICAID ==
[~2025-04-12] MED LIST changes: -ARIP10TA32 PO; +ARIP10TA63 PO; +GABA-1172 PO; +GABA-1490 PO; -GABA-282 PO; -GABA600T4 PO; +LAMO-18; +LAMO-18 PO; -LAMO25TA4; -LAMO25TA4 PO
[2025-04-12 18:51] LABS: BASO # 0.1 10^3/uL (0.0-0.2); BASO % 1.8 % (0.0-1.0); EOS # 0.7 10^3/uL (0.0-0.5); EOS % 12.7 % (0.0-3.0); LYMPH # 1.3 10^3/uL (1.5-5.0); LYMPH % 25.0 % (24.0-44.0); MONO # 0.5 10^3/uL (0.0-0.8); MONO % 9.2 % (2.0-8.0); NEUTROPHILS # 2.6 10^3/uL (1.5-8.5); NEUTROPHILS % 51.1 % (36.0-66.0); PLATELET COUNT, AUTOMATED 290 10^3/uL (150-450)
[2025-04-12 18:56] LABS: CALCIUM LEVEL 8.9 MG/DL (8.5-10.1); CARBON DIOXIDE LEVEL 27.0 MMOL/L (20-31); CHLORIDE LEVEL 111.0 MMOL/L (98-107); CREATININE FOR GFR 1.16 MG/DL (0.70-1.30); GLOMERULAR FILTRATION RATE 74.4 (>56); POTASSIUM SERUM 4.4 MMOL/L (3.5-5.1); SODIUM LEVEL 142.0 MMOL/L (136-145)
== END ==
LOC: M LABDRWCV 18:04
PROVIDERS: ATTEND Internal Medicine Cardiovascular Disease
DX: E11.51 Type 2 diabetes mellitus with diabetic peripheral angiopathy without gangrene (principal); I10 Essential (primary) hypertension; I25.10 Atherosclerotic heart disease of native coronary artery without angina pectoris; I25.84 Coronary atherosclerosis due to calcified coronary lesion